=== PATIENT | female | born 1935 | race American Indian/Alaskan Native ===

== ENCOUNTER 2019-08-22 17:37 | Emergency (ER) | payer MEDICARE, MEDICAID ==
--- NOTE | 2019-08-22 19:11 | Emergency Department Report ---
Blank Doc - Documentation Documentation: 84-year-old female that presents with right calf/leg pain. This initial assessment/diagnostic orders/clinical plan/treatment(s) is/are subject to change based on patient's health status, clinical progression and re- assessment by fellow clinical providers in the ED. Further treatment and workup at subsequent clinical providers discretion. Patient/guardians urged not to elope from the ED as their condition may be serious if not clinically assessed and managed. Initial orders include: 1- Patient sent to MAIN ED for further evaluation and treatment 2- Doppler US
[2019-08-22] MEDS ORDERED: IBUPROFEN 600 MG TAB PO ONE ×2 (19:15→19:17)
[2019-08-22 22:23] LABS: Basophils % (Auto) 0.4 % (0.0-1.8); Hematocrit 37.3 % (30.3-42.9); Hemoglobin 12.9 gm/dl (10.1-14.3); Lymphocytes # (Auto) 0.5 K/mm3 (1.2-5.4); Lymphocytes % (Auto) 7.3 % (13.4-35.0); Mean Corpuscular HGB Conc 35 % (30-34); Mean Corpuscular Volume 88 fl (79-97); Monocytes # (Auto) 0.3 K/mm3 (0.0-0.8); Monocytes % (Auto) 3.7 % (0.0-7.3); Platelet Count 289 K/mm3 (140-440); Red Blood Count 4.26 M/mm3 (3.65-5.03); Red Cell Distribution Width 16.2 % (13.2-15.2)
[2019-08-22 22:34] LABS: INR 1.03 (0.87-1.13); Partial Thromboplastin Time 22.5 Sec. (24.2-36.6)
[2019-08-22 22:41] LABS: Albumin 4.4 g/dL (3.9-5)
--- NOTE | 2019-08-22 22:44 | XRay Report ---
CHEST 2 VIEWS INDICATION / CLINICAL INFORMATION: SOB, elevated HR, fever. Dyspnea. COMPARISON: None available. FINDINGS: SUPPORT DEVICES: None. HEART / MEDIASTINUM: No significant abnormality. LUNGS / PLEURA: No significant pulmonary or pleural abnormality. No pneumothorax. ADDITIONAL FINDINGS: No significant additional findings. IMPRESSION: 1. No acute findings. Signer Name: Alex Stone MD Signed: 08/22/2019 10:40 PM Workstation Name: [id number]
[2019-08-22] MEDS ORDERED: SODIUM CHLORIDE 0.9% 1000 ML 1,000 ML IV ONE (22:46)
--- NOTE | 2019-08-23 00:19 | Cat Scan Report ---
CT angiography of the chest with intravenous contrast and multiplanar MIP reconstructions INDICATION / CLINICAL INFORMATION: Shortness of breath, tachycardia, fever and elevated d-dimer. TECHNIQUE: Axial CT images were obtained after injection of 100 cc Omnipaque 350 IV contrast using CTA protocol. 3 plane MIP / 3D reconstructions were produced. All CT scans at this location are performed using CT dose reduction for ALARA by means of automated exposure control. COMPARISON: None available. FINDINGS: There is mild motion artifact. There is adequate opacification of the pulmonary arterial system bilat erally without intraluminal filling defect to suggest acute PTE. The thoracic aorta is normal in [place] without dissection. There is mild to moderate coronary artery calcification. There is a calcified granuloma in the right upper lobe posteriorly. Mild bibasilar subsegmental atele ctasis is present. There is no evidence of adenopathy or effusion. The visualized upper abdomen demonstrates small calcified granulomata in the spleen. There is a small hiatal hernia. A 2 cm cyst is present in the liver. There is mild spondylosis without acute osseous abnormality. IMPRESSION: 1. No evidence of acute PTE or pneumonia. 2. Mild to moderate coronary artery calcification. Signer Name: Daniel Caballero MD Signed: 08/23/2019 12:14 AM Workstation Name: [id number]
--- NOTE | 2019-08-23 01:38 | Emergency Department Report ---
ED General Adult HPI - General Chief complaint: Extremity Injury, Lower Stated complaint: (R) LEG PAIN Time Seen by Provider: 08/22/19 19:10 Source: patient, EMS Mode of arrival: Stretcher Limitations: Physical Limitation - History of Present Illness Initial comments: Patient is an 84-year-old female presents emergency room with complaints of right leg pain that began today. She states that she went to the workout center today and was doing exercises and began to feel the pain after she was finished. She denies any fall or injury. She states that she also had some shortness of breath earlier but that has since resolved. She denies any numbness, weakness, chest pain, palpitations, nausea, vomiting, diarrhea. She has a past medical history of asthma and diabetes. She denies any allergies medications. Severity scale (0 -10): 7 - Related Data Previous Rx's Medication Instructions Recorded Last Taken Type Acetaminophen [Tylenol] 650 mg PO Q8HR PRN #20 capsule 08/23/19 Unknown Rx Allergies Allergy/AdvReac Type Severity Reaction Status Date / Time No Known Allergies Allergy Unverified 08/22/19 18:24 ED Review of Systems ROS: Stated complaint: (R) LEG PAIN Other details as noted in HPI Comment: All other systems reviewed and negative ED Past Medical Hx - Past Medical History Previous Medical History?: No - Surgical History Past Surgical History?: No - Social History Smoking Status: Former Smoker Substance Use Type: None - Medications Home Medications: Home Medications Medication Instructions Recorded Confirmed Last Taken Type Acetaminophen [Tylenol] 650 mg PO Q8HR PRN #20 capsule 08/23/19 Unknown Rx ED Physical Exam - General Limitations: Physical Limitation General appearance: alert, in no apparent distress - Head Head exam: Present: atraumatic, normocephalic - Eye Eye exam: Present: normal appearance - ENT ENT exam: Present: mucous membranes moist - Respiratory Respiratory exam: Present: normal lung sounds bilaterally. Absent: respiratory distress, wheezes, rales, rhonchi, stridor, chest wall tenderness, accessory muscle use, decreased breath sounds, prolonged expiratory - Cardiovascular Cardiovascular Exam: Present: regular rate, normal rhythm, normal heart sounds. Absent: systolic murmur, diastolic murmur, rubs, gallop - Extremities Exam Extremities exam: Present: other (no leg swelling bilaterally, FROM of the bilateral LE, neurovascularly intact, no deformities, no skin changes). Absent: pedal edema - Neurological Exam Neurological exam: Present: alert, oriented X3 - Psychiatric Psychiatric exam: Present: normal affect, normal mood - Skin Skin exam: Present: warm, dry, intact ED Course Vital Signs 08/22/19 08/22/19 08/22/19 18:23 19:13 19:18 Temperature 100.0 F H 100 F H Pulse Rate 112 H 112 H Respiratory 19 18 18 Rate Blood Pressure 139/72 139/72 Blood Pressure [Left] O2 Sat by Pulse 95 96 Oximetry 08/23/19 02:42 Temperature 98.0 F Pulse Rate 79 Respiratory 14 Rate Blood Pressure Blood Pressure 161/84 [Left] O2 Sat by Pulse 97 Oximetry ED Medical Decision Making - Lab Data Result diagrams: 08/22/19 22:00 08/22/19 22:00 Lab Results 08/22/19 08/22/19 08/22/19 Range/Units 22:00 22:00 22:00 WBC 6.9 (4.5-11.0) K/mm3 RBC 4.26 (3.65-5.03) M/mm3 Hgb 12.9 (10.1-14.3) gm/dl Hct 37.3 (30.3-42.9) % MCV 88 (79-97) fl MCH 30 (28-32) pg MCHC 35 H (30-34) % RDW 16.2 H (13.2-15.2) % Plt Count 289 (140-440) K/mm3 Lymph % (Auto) 7.3 L (13.4-35.0) % Gregg % (Auto) 3.7 (0.0-7.3) % Eos % (Auto) 0.0 (0.0-4.3) % Baso % (Auto) 0.4 (0.0-1.8) % Lymph # 0.5 L (1.2-5.4) K/mm3 Gregg # 0.3 (0.0-0.8) K/mm3 Eos # 0.0 (0.0-0.4) K/mm3 Baso # 0.0 (0.0-0.1) K/mm3 Seg Neutrophils % 88.6 H (40.0-70.0) % Seg Neutrophils # 6.1 (1.8-7.7) K/mm3 PT 13.6 (12.2-14.9) Sec. INR 1.03 (0.87-1.13) APTT 22.5 L (24.2-36.6) Sec. D-Dimer 403.14 H (0-234) ng/mlDDU Sodium 138 (137-145) mmol/L Potassium 3.5 L (3.6-5.0) mmol/L Chloride 98.7 (98-107) mmol/L Carbon Dioxide 22 (22-30) mmol/L Anion Gap 21 mmol/L BUN 22 H (7-17) mg/dL Creatinine 1.2 (0.7-1.2) mg/dL Estimated GFR 52 ml/min BUN/Creatinine Ratio 18 % Glucose 163 H (65-100) mg/dL Calcium 10.0 (8.4-10.2) mg/dL Phosphorus 3.00 (2.5-4.5) mg/dL Magnesium 2.00 (1.7-2.3) mg/dL Total Bilirubin 0.40 (0.1-1.2) mg/dL AST 18 (5-40) units/L ALT 14 (7-56) units/L Alkaline Phosphatase 82 (35-129) units/L Total Creatine Kinase 135 (30-135) units/L Troponin T (0.00-0.029) ng/mL Total Protein 8.6 H (6.3-8.2) g/dL Albumin 4.4 (3.9-5) g/dL Albumin/Globulin Ratio 1.0 % TSH (0.270-4.200) mlU/mL Urine Color (Yellow) Urine Turbidity (Clear) Urine pH (5.0-7.0) Ur Specific Nelson (1.003-1.030) Urine Protein (Negative) mg/dL Urine Glucose (UA) (Negative) mg/dL Urine Ketones (Negative) mg/dL Urine Blood (Negative) Urine Nitrite (Negative) Urine Bilirubin (Negative) Urine Urobilinogen (<2.0) mg/dL Ur Leukocyte Esterase (Negative) Urine WBC (Auto) (0.0-6.0) /HPF Urine RBC (Auto) (0.0-6.0) /HPF U Epithel Cells (Auto) (0-13.0) /HPF 08/22/19 08/22/19 08/23/19 Range/Units 22:00 22:00 02:22 WBC (4.5-11.0) K/mm3 RBC (3.65-5.03) M/mm3 Hgb (10.1-14.3) gm/dl Hct (30.3-42.9) % MCV (79-97) fl MCH (28-32) pg MCHC (30-34) % RDW (13.2-15.2) % Plt Count (140-440) K/mm3 Lymph % (Auto) (13.4-35.0) % Gregg % (Auto) (0.0-7.3) % Eos % (Auto) (0.0-4.3) % Baso % (Auto) (0.0-1.8) % Lymph # (1.2-5.4) K/mm3 Gregg # (0.0-0.8) K/mm3 Eos # (0.0-0.4) K/mm3 Baso # (0.0-0.1) K/mm3 Seg Neutrophils % (40.0-70.0) % Seg Neutrophils # (1.8-7.7) K/mm3 PT (12.2-14.9) Sec. INR (0.87-1.13) APTT (24.2-36.6) Sec. D-Dimer (0-234) ng/mlDDU Sodium (137-145) mmol/L Potassium (3.6-5.0) mmol/L Chloride (98-107) mmol/L Carbon Dioxide (22-30) mmol/L Anion Gap mmol/L BUN (7-17) mg/dL Creatinine (0.7-1.2) mg/dL Estimated GFR ml/min BUN/Creatinine Ratio % Glucose (65-100) mg/dL Calcium (8.4-10.2) mg/dL Phosphorus (2.5-4.5) mg/dL Magnesium (1.7-2.3) mg/dL Total Bilirubin (0.1-1.2) mg/dL AST (5-40) units/L ALT (7-56) units/L Alkaline Phosphatase (35-129) units/L Total Creatine Kinase (30-135) units/L Troponin T < 0.010 (0.00-0.029) ng/mL Total Protein (6.3-8.2) g/dL Albumin (3.9-5) g/dL Albumin/Globulin Ratio % TSH 1.380 (0.270-4.200) mlU/mL Urine Color Colorless (Yellow) Urine Turbidity Clear (Clear) Urine pH 7.0 (5.0-7.0) Ur Specific Nelson 1.018 (1.003-1.030) Urine Protein <15 mg/dl (Negative) mg/dL Urine Glucose (UA) Neg (Negative) mg/dL Urine Ketones Neg (Negative) mg/dL Urine Blood Neg (Negative) Urine Nitrite Neg (Negative) Urine Bilirubin Neg (Negative) Urine Urobilinogen < 2.0 (<2.0) mg/dL Ur Leukocyte Esterase Neg (Negative) Urine WBC (Auto) 1.0 (0.0-6.0) /HPF Urine RBC (Auto) 1.0 (0.0-6.0) /HPF U Epithel Cells (Auto) < 1.0 (0-13.0) /HPF - Radiology Data Radiology results: report reviewed CT angiography of the chest with intravenous contrast and multiplanar MIP reconstructions INDICATION / CLINICAL INFORMATION: Shortness of breath, tachycardia, fever and elevated d-dimer. TECHNIQUE: Axial CT images were obtained after injection of 100 cc Omnipaque 350 IV contrast using CTA protocol. 3 plane MIP / 3D reconstructions were produced. All CT scans at this location are performed using CT dose reduction for ALARA by means of automated exposure control. COMPARISON: None available. FINDINGS: There is mild motion artifact. There is adequate opacification of the pulmonary arterial system bilaterally without intraluminal filling defect to suggest acute PTE. The thoracic aorta is normal in caliber without dissection. There is mild to moderate coronary artery calcification. There is a calcified granuloma in the right upper lobe posteriorly. Mild bibasilar subsegmental atelectasis is present. There is no evidence of adenopathy or effusion. The visualized upper abdomen demonstrates small calcified granulomata in the spleen. There is a small hiatal hernia. A 2 cm cyst is present in the liver. There is mild spondylosis without acute osseous abnormality. IMPRESSION: 1. No evidence of acute PTE or pneumonia. 2. Mild to moderate coronary artery calcification. Signer Name: Daniel Caballero MD Signed: 08/23/2019 12:14 AM Workstation Name: [id number] Transcribed By: RT Dictated By: Daniel Caballero MD Electronically Authenticated By: Daniel Caballero MD Signed Date/Time: 08/23/19 0014 DD/ 0009 TD/TT: CHEST 2 VIEWS INDICATION / CLINICAL INFORMATION: SOB, elevated HR, fever. Dyspnea. COMPARISON: None available. FINDINGS: SUPPORT DEVICES: None. HEART / MEDIASTINUM: No significant abnormality. LUNGS / PLEURA: No significant pulmonary or pleural abnormality. No pneumothorax. ADDITIONAL FINDINGS: No significant additional findings. IMPRESSION: 1. No acute findings. Signer Name: Alex Stone MD Signed: 08/22/2019 10:40 PM Workstation Name: [id number] Transcribed By: BC Dictated By: Alex Stone MD Electronically Authenticated By: Alex Stone MD Signed Date/Time: 08/22/192239 DD/ 38 TD/TT: - Medical Decision Making Patient is an 84-year-old female presents emergency room with complaints of right leg pain that began today. She states that she went to the workout center today and was doing exercises and began to feel the pain after she was finished. She denies any fall or injury. She states that she also had some shortness of breath earlier but that has since resolved. She denies any numbness, weakness, chest pain, palpitations, nausea, vomiting, diarrhea. She has a past medical history of asthma and diabetes. She denies any allergies medications. Vitals with elevated temperature and heart rate which improved to normal upon repeat. Labs significant for elevated d-dimer. UA without evidence of UTI. Chest x-ray 1. No acute findings. CTA chest: 1. No evidence of acute PTE or pneumonia.2. Mild to moderate coronary artery calcification. on exam: no leg swelling bilaterally, FROM of the bilateral LE, neurovascularly intact, no deformities, no skin changes. No signs of cellulitis, DVT, injury, effusion, septic joint, PVD. Discussed case with Dr. Paul Ugarte and patient results and he states that patient can be discharged home and that the low-grade temp and elevated heart rate could be related to a viral syndrome. Patient given prescription for Tylenol. Advised patient to increase her fluid intake. advised pt please take medication as prescribed as needed. Please follow-up with your primary care doctor in the next 2-3 days for reevaluation. Return to the emergency room immediately for any new or worsening symptoms. - Differential Diagnosis PE, electrolyte disturbance, UTI, PNA, asthma, COPD, CHF, aortic dissection Critical care attestation.: If time is entered above; I have spent that time in minutes in the direct care of this critically ill patient, excluding procedure time. ED Disposition Clinical Impression: Right leg pain, SOB (shortness of breath) Disposition: TO HOME OR SELFCARE Is pt being admited?: No Does the pt Need Aspirin: No Condition: Stable Additional Instructions: please take medication as prescribed as needed. Please follow-up with your primary care doctor in the next 2-3 days for reevaluation. Return to the emergency room immediately for any new or worsening symptoms. Prescriptions: Acetaminophen [Tylenol] 650 mg PO Q8HR PRN #20 capsule PRN Reason: pain Referrals: PRIMARY CARE, [Primary Care Provider] - 2-3 Days Time of Disposition: 03:44 Print Language: EAST TIMORESE
[2019-08-23 02:43] VITALS: BP 161/84
[2019-08-23 02:51] LABS: Bilirubin,Urine NEG (Negative); Blood,Urine NEG (Negative); Color,Urine Colorless (Yellow); Protein,Urine <15 mg/dL mg/dL (Negative); Urobilinogen,Urine < 2.0 mg/dL (<2.0)
== END 2019-08-23 07:05 | disposition home or self-care (01) ==
LOC: ED 17:37
DX: M79.604 Pain in right leg (principal); R06.02 Shortness of breath; Z87.891 Personal history of nicotine dependence
CPT/HCPCS: 36415; 71046; 71275; 80053; 81001; 82550; 83735; 84100; 84443; 84484; 85025; 85379; 85610; 85730; 93005; 93010; 99285; J7030; Q9967

== ENCOUNTER 2021-03-15 10:12 | Observation (INO) | payer MEDICARE ==
--- NOTE | 2021-03-15 10:44 | Emergency Department Report ---
HPI - General Chief Complaint: Extremity Injury, Lower Time Seen by Provider: 03/15/21 10:25 - HPI HPI: Room 22 The patient is an 85-year-old female present with a chief complaint of right knee pain after fall. The patient reports 2 days ago her feet were wet and she slipped and fell. When asked if she lost consciousness the patient replies "a little bit." Patient states she had a headache after fall but it has since resolved. Patient denies nausea vomiting. Patient also complains of pain in her right knee ED Past Medical Hx - Past Medical History Previous Medical History?: Yes Hx Hypertension: Yes Hx Diabetes: Yes - Surgical History Past Surgical History?: No - Family History Family history: no significant - Social History Smoking Status: Former Smoker (None times years) Substance Use Type: None - Medications Home Medications: Home Medications Medication Instructions Recorded Confirmed Last Taken Type Acetaminophen [Tylenol] 650 mg PO Q8HR PRN #20 capsule 08/23/19 Unknown Rx levETIRAcetam [Keppra TAB] 500 mg PO BID #60 tablet 03/24/20 Unknown Rx Ibuprofen [Motrin 800 MG tab] 800 mg PO Q8HR PRN #20 tablet 03/15/21 Unknown Rx traMADoL [Ultram] 50 mg PO Q6HR PRN #10 tablet 03/15/21 Unknown Rx ED Review of Systems ROS: Stated complaint: RT KNII PAIN Other details as noted in HPI Constitutional: no symptoms reported Eyes: denies: eye pain ENT: denies: throat pain Respiratory: no symptoms reported Cardiovascular: denies: chest pain Endocrine: no symptoms reported Gastrointestinal: denies: abdominal pain Genitourinary: denies: dysuria Musculoskeletal: arthralgia Neurological: headache Physical Exam - Physical Exam Vital Signs: Vital Signs 03/15/21 10:23 Temperature 97.7 F Pulse Rate 108 H Respiratory 19 Rate Blood Pressure 141/77 O2 Sat by Pulse 93 Oximetry Physical Exam: GENERAL: The patient is well-developed well-nourished female lying on stretcher not appearing to be in acute distress. [] HEENT: Normocephalic. Atraumatic. Extraocular motions are intact. Patient has moist mucous membranes. NECK: Supple. Trachea midline. No midline axial step-offs CHEST/LUNGS: Clear to auscultation. There is no respiratory distress noted. HEART/CARDIOVASCULAR: Regular. There is no tachycardia. There is no gallop rub or murmur. ABDOMEN: Abdomen is soft, nontender. Patient has normal bowel sounds. There is no abdominal distention. SKIN: There is no rash. There is no edema. There is no diaphoresis. NEURO: The patient is awake, alert, and oriented. The patient is cooperative. The patient has no focal neurologic deficits. The patient has normal speech. GCS 15 MUSCULOSKELETAL: There is no evidence of acute injury. ED Course Vital Signs 03/15/21 10:23 Temperature 97.7 F Pulse Rate 108 H Respiratory 19 Rate Blood Pressure 141/77 O2 Sat by Pulse 93 Oximetry ED Medical Decision Making - Radiology Data Radiology results: image reviewed (Pelvis x-ray, right knee x-ray, CT head, CT cervical spine) interpreted by me: Pelvis x-ray-no acute fractures, no dislocation. Right knee x-ray-no acute fracture, no dislocation [address] [address] XRay Report Signed Patient: DANY LOPEZ MR#: [id number] 6 : 1935 Acct:[id number] Age/Sex: 85 / F ADM Date: 03/15/21 Loc: ED Attending Dr: Ordering Physician: MAISHA GILLILAND MD Date of Service: 03/15/21 Procedure(s): XR pelvis 1-2V Accession Number(s): [id number] cc: MAISHA GILLILAND MD Fluoro Time In Minutes: Pelvis radiograph, single AP view HISTORY: Pain after fall COMPARISON: None FINDINGS: No acute fracture or malalignment. No hip dislocation. There is mild bilateral hip osteoarthritis. Degenerative changes are present the pubic symphysis. No SI joint or pubic symphyseal diastases. Soft tissues are unremarkable. IMPRESSION: No acute abnormality. Signer Name: Magy Ascencio MD Signed: 03/15/2021 11:59 AM Workstation Name: [id number] Transcribed By: TAWANA Dictated By: MAGY ASCENCIO MD Electronically Authenticated By: MAGY ASCENCIO MD Signed Date/Time: 03/15/21 1159 DD/ 1158 TD/TT: Print Cancel [address] [address] XRay Report Signed Patient: DANY LOPEZ MR#: [id number] 6 : 1935 Acct:[id number] Age/Sex: 85 / F ADM Date: 03/15/21 Loc: ED Attending Dr: Ordering Physician: MAISHA GILLILAND MD Date of Service: 03/15/21 Procedure(s): XR knee 3V RT Accession Number(s): [id number] cc: MAISHA GILLILAND MD Fluoro Time In Minutes: Right knee radiograph, 3 views HISTORY: Right knee pain after fall COMPARISON: None FINDINGS: Marked osteoarthritis of the right knee, preferentially involving the lateral compartment. There is genu valgus. No acute fracture or malalignment. No significant joint capsular distention. Soft tissues are unremarkable, aside from scattered vascular calcifications. IMPRESSION: Right knee osteoarthritis. No acute abnormality. Signer Name: Magy Ascencio MD Signed: 03/15/2021 11:56 AM Workstation Name: [id number] Transcribed By: JS Dictated By: MAGY ASCENCIO MD Electronically Authenticated By: MAGY ASCENCIO MD Signed Date/Time: 03/15/21 1156 DD/ 1155 TD/TT: Print Cancel [facility] [address] [place] [address] Cat Scan Report Signed Patient: DANY LOPEZ MR#: [id number] 6 : 1935 Acct:[id number] Age/Sex: 85 / F ADM Date: 03/15/21 Loc: ED Attending Dr: Ordering Physician: MAISHA GILLILAND MD Date of Service: 03/15/21 Procedure(s): CT head/brain wo con Accession Number(s): [id number] cc: MAISHA GILLILAND MD CT HEAD WITHOUT CONTRAST INDICATION : Pain after fall. TECHNIQUE: Axial imaging performed from the skull apex through the skull base without the use of contrast. Sagittal and coronal reformatted images. All CT scans at this location are performed using CT dose reduction for ALARA by means of automated exposure control. COMPARISON: 03/23/2020 FINDINGS: Parenchyma: Advanced central and cortical volume loss is again noted. Moderate to severe hypoattenuation is again seen throughout the white matter consistent with chronic microangiopathy. Stable 1.1 cm chronic infarct in the left cerebellum. No acute parenchymal abnormality, hemorrhage or extra-axial fluid collection is appreciated. Ventricles: The ventricles remain prominent but symmetric consistent with central volume loss. Bones: No acute osseous abnormality. Sinuses: Mild mucosal thickening and trace fluid has developed in both maxillary sinuses. The remaining sinuses and mastoid air cells are clear. Soft tissues: Soft tissues including the orbits appear normal. IMPRESSION: No acute intracranial process is appreciated. Advanced volume loss and chronic white matter changes. Chronic cerebellar infarct. No significant change since 03/23/2020. CT CERVICAL SPINE WITHOUT CONTRAST INDICATION: Pain after fall. TECHNIQUE: Axial imaging performed through the cervical spine without the use of contrast. Sagittal and coronal reconstructed images were also reviewed. All CT scans at this location are performed using CT dose reduction for ALARA by means of automated exposure control. COMPARISON: None FINDINGS: Alignment: There is reversal of the normal cervical lordosis. No evidence for subluxation. Bones: There is no acute osseous abnormality. There is fusion of the C5-6 disc space which is probably congenital. Severe discogenic DJD is present at the remaining levels. There is mild diffuse facet arthropathy. Soft tissues: No acute or significant incidental soft tissue abnormality. IMPRESSION: Reversal of the normal cervical lordosis. Advanced multilevel degenerative change. 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 No acute cervical injury is detected. Signer Name: Natanael Rene Jr, MD Signed: 03/15/2021 11:22 AM Workstation Name: [id number] Transcribed By: TTR Dictated By: NATANAEL RENE JR, MD Electronically Authenticated By: NATANAEL RENE JR, MD Signed Date/Time: 03/15/21 1122 DD/ 1118 TD/TT: Print Cancel - Differential Diagnosis Close head injury, ICH, knee contusion, femur fracture, Critical care attestation.: If time is entered above; I have spent that time in minutes in the direct care of this critically ill patient, excluding procedure time. ED Disposition Clinical Impression: Closed head injury, Contusion of right knee Disposition: DC-01 TO HOME OR SELFCARE Is pt being admited?: No Does the pt Need Aspirin: No Condition: Stable Instructions: Contusion Additional Instructions: Return to the emergency department should you develop worsening symptoms, inability to tolerate food or liquids, high fever or any other concerns Prescriptions: Ibuprofen [Motrin 800 MG tab] 800 mg PO Q8HR PRN #20 tablet PRN Reason: Pain, Moderate (4-6) traMADoL [Ultram] 50 mg PO Q6HR PRN #10 tablet PRN Reason: Pain Referrals: PRIMARY CAREMD [Primary Care Provider] - 3-5 Days CHAVEZ SHARMA MD [Staff Physician] - 3-5 Days (Dr. Sharma is an orthopedic surgeon. Please follow-up with him for further evaluation) Time of Disposition: 12:12
--- NOTE | 2021-03-15 11:27 | Cat Scan Report ---
CT HEAD WITHOUT CONTRAST INDICATION : Pain after fall. TECHNIQUE: Axial imaging performed from the skull apex through the skull base without the use of con trast. Sagittal and coronal reformatted images. All CT scans at this location are performed using C T dose reduction for ALARA by means of automated exposure control. COMPARISON: 03/23/2020 FINDINGS: Parenchyma: Advanced central and cortical volume loss is again noted. Moderate to severe hypoattenua tion is again seen throughout the white matter consistent with chronic microangiopathy. Stable 1.1 cm chronic infarct in the left cerebellum. No acute parenchymal abnormality, hemorrhage or extra-axial fluid collection is appreciated. Ventricles: The ventricles remain prominent but symmetric consistent with central volume loss. Bones: No acute osseous abnormality. Sinuses: Mild mucosal thickening and trace fluid has developed in both maxillary sinuses. The remain ing sinuses and mastoid air cells are clear. Soft tissues: Soft tissues including the orbits appear normal. IMPRESSION: No acute intracranial process is appreciated. Advanced volume loss and chronic white jim er changes. Chronic cerebellar infarct. No significant change since 03/23/2020. CT CERVICAL SPINE WITHOUT CONTRAST INDICATION: Pain after fall. TECHNIQUE: Axial imaging performed through the cervical spine without the use of contrast. Sagittal and coronal reconstructed images were also reviewed. All CT scans at this location are performed us ing CT dose reduction for ALARA by means of automated exposure control. COMPARISON: None FINDINGS: Alignment: There is reversal of the normal cervical lordosis. No evidence for subluxation. Bones: There is no acute osseous abnormality. There is fusion of the C5-6 disc space which is proba abhi congenital. Severe discogenic DJD is present at the remaining levels. There is mild diffuse facet arthropathy. Soft tissues: No acute or significant incidental soft tissue abnormality. IMPRESSION: Reversal of the normal cervical lordosis. Advanced multilevel degenerative change. 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 No acute cervical injury is detected. Signer Name: Natanael Rene Jr, MD Signed: 03/15/2021 11:22 AM Workstation Name: [id number]
--- NOTE | 2021-03-15 12:03 | XRay Report ---
Right knee radiograph, 3 views HISTORY: Right knee pain after fall COMPARISON: None FINDINGS: Marked osteoarthritis of the right knee, preferentially involving the lateral compartment. There is genu valgus. No acute fracture or malalignment. No significant joint capsular distention. So ft tissues are unremarkable, aside from scattered vascular calcifications. IMPRESSION: Right knee osteoarthritis. No acute abnormality. Signer Name: Peter Ascencio MD Signed: 03/15/2021 11:56 AM Workstation Name: [id number]
--- NOTE | 2021-03-15 12:04 | XRay Report ---
Pelvis radiograph, single AP view HISTORY: Pain after fall COMPARISON: None FINDINGS: No acute fracture or malalignment. No hip dislocation. There is mild bilateral hip osteoart hritis. Degenerative changes are present the pubic symphysis. No SI joint or pubic symphyseal diastas es. Soft tissues are unremarkable. IMPRESSION: No acute abnormality. Signer Name: Peter Ascencio MD Signed: 03/15/2021 11:59 AM Workstation Name: [id number]
[2021-03-16] MEDS ORDERED: NITROGLYCERIN 0.4 MG TAB SUBL SL ONE (15:24)
[2021-03-17] MEDS ORDERED: ACETAMINOPHEN 500 MG TAB PO PRN (12:18)
--- NOTE | 2021-03-17 12:27 | Event Note ---
Date: 03/17/21 S: Patient complaining of some knee pain. O: Vital signs stable. Patient is calm and cooperative. A: Hypertension, diabetes, osteoarthritis P: Personal long-term states they are unable to manage patient; requesting placement in long-term care facility. Awaiting placement at this time. Will dispo per case management recommendations. Nurse will attempt to obtain list of home meds.
[2021-03-17] MEDS: levETIRAcetam 500 MG TAB PO SCH (22:45)
[2021-03-18] MEDS ORDERED: NON-FORMULARY EACH (Sitagliptin Phos/Metformin Hcl [Janumet Xr 50-1,000 Mg] 1 EACH Tbmp.24 PO SCH (08:00)
[2021-03-18] MEDS ORDERED: NON-FORMULARY EACH (Omeprazole [Omeprazole] 20 MG Tablet.Dr) PO SCH (10:00)
[2021-03-18] MEDS ORDERED: NON-FORMULARY EACH (Lovastatin [Altoprev] 40 MG Tab.Er.24h) PO SCH (10:00)
--- NOTE | 2021-03-18 10:10 | Event Note ---
Date: 03/18/21 85-year-old female who originally came in for a fall with knee pain and a head injury. She was given the diagnosis of a knee contusion and closed head injury. She was no longer able to return to her personal correction and is currently boarding in the emergency department for case management assistance with placement. Case management is awaiting the results of her Covid test and OT/PT evaluation for possible SNF placement. Vital signs, listed below, have been reassuring over the past 24 hours. No events overnight. We will continue to m onitor her during her ED course. Vital Signs - 24 hr 03/17/21 03/18/21 03/18/21 13:15 01:22 05:30 Temperature 97.7 F 97.7 F Pulse Rate 94 H 88 Respiratory 18 18 Rate Blood Pressure 161/90 145/80 [Right] O2 Sat by Pulse 98 96 96 Oximetry
[2021-03-18] MEDS: amLODIPine 10 MG TAB PO SCH (13:29)
[2021-03-18] MEDS: PANTOPRAZOLE 20 MG TAB PO SCH (13:29)
[2021-03-18] MEDS: allopurinoL 300 MG TAB PO SCH (13:29)
[2021-03-18] MEDS: LINAGLIPTIN 5 MG TAB PO SCH (13:29)
[2021-03-18] MEDS: levETIRAcetam 500 MG TAB PO SCH ×2 (13:29→22:35)
[2021-03-18] MEDS: FERROUS SULFATE 325 MG TAB PO SCH (13:29)
[2021-03-18] MEDS: metFORMIN XR 500MG TAB PO SCH (13:29)
[2021-03-18] MEDS: SENNOSIDES 8.6 MG PO SCH (13:32)
[2021-03-19] MEDS: metFORMIN XR 500MG TAB PO SCH (07:59)
[2021-03-19] MEDS: LINAGLIPTIN 5 MG TAB PO SCH (08:00)
--- NOTE | 2021-03-19 10:28 | Event Note ---
Date: 03/19/21 85-year-old female who originally came in for a fall with knee pain and a head injury. She was given the diagnosis of a knee contusion and closed head injury. She was no longer able to return to her personal [facility] and is currently boarding in the emergency department for case management assistance with placement. Case management is awaiting the results of her Covid test which is NEGATIVE. Patient resting comfortably with no complaints at this time
[2021-03-19] MEDS: amLODIPine 10 MG TAB PO SCH (12:29)
[2021-03-19] MEDS: PANTOPRAZOLE 20 MG TAB PO SCH (12:30)
[2021-03-19] MEDS: SENNOSIDES 8.6 MG PO SCH (12:30)
[2021-03-19] MEDS: levETIRAcetam 500 MG TAB PO SCH ×2 (12:30→22:46)
[2021-03-19] MEDS: FERROUS SULFATE 325 MG TAB PO SCH (12:30)
[2021-03-19] MEDS: allopurinoL 300 MG TAB PO SCH (12:33)
[2021-03-19] MEDS ORDERED: SENNOSIDES 8.6 MG TAB PO PRN (13:47)
--- NOTE | 2021-03-20 02:35 | Emergency Department Report ---
- General Chief complaint: Extremity Injury, Lower Stated complaint: RT KNEE PAIN PUI?: No Time Seen by Provider: 03/20/21 02:25 Source: EMS Mode of arrival: Stretcher Limitations: Physical Limitation - History of Present Illness Initial comments: Patient is a 85-year-old female that is in the emergency room waiting on a case management consult. Patient last known well time was 1 hour ago. Patient is now nonverbal. Patient having difficulty speaking. MD Complaint: generalized weakness -: Sudden Severity scale (0 -10): 0 - Related Data Home Medications Medication Instructions Recorded Confirmed Last Taken Ferrous Sulfate [Iron 325 MG] 325 mg PO DAILY 03/17/21 03/17/21 Unknown Lovastatin [Altoprev] 03/17/21 Unknown Lovastatin [Altoprev] 40 mg PO DAILY 03/17/21 03/17/21 Unknown Meloxicam [Mobic] 7.5 mg DAILY 03/17/21 03/17/21 Unknown Omeprazole 20 mg PO DAILY 03/17/21 03/17/21 Unknown Sennosides [Senna] 40 mg PO DAILY 03/17/21 03/17/21 Unknown Sitagliptin Phos/Metformin HCl tab DAILY 03/17/21 Unknown [Janumet XR 50-1,000 mg] allopurinoL [Zyloprim] 300 mg PO QDAY 03/17/21 03/17/21 Unknown amLODIPine [Norvasc] 10 mg PO DAILY 03/17/21 03/17/21 Unknown levETIRAcetam [Keppra TAB] 500 mg PO BID 03/17/21 03/17/21 Unknown traMADoL [Ultram 50 MG tab] 225 mg Q6HR 03/17/21 03/17/21 Unknown Allergies Allergy/AdvReac Type Severity Reaction Status Date / Time No Known Allergies Allergy Verified 03/15/21 10:30 ED Review of Systems ROS: Stated complaint: RT KNEE PAIN Other details as noted in HPI Constitutional: no symptoms reported Eyes: denies: eye pain ENT: denies: throat pain Respiratory: no symptoms reported Cardiovascular: denies: chest pain Endocrine: no symptoms reported Gastrointestinal: denies: abdominal pain Genitourinary: denies: dysuria Musculoskeletal: arthralgia Neurological: headache ED Past Medical Hx - Past Medical History Previous Medical History?: Yes Hx Hypertension: Yes Hx Diabetes: Yes - Surgical History Past Surgical History?: No - Family History Family history: no significant - Social History Smoking Status: Former Smoker (None times years) Substance Use Type: None - Medications Home Medications: Home Medications Medication Instructions Recorded Confirmed Last Taken Type Ferrous Sulfate [Iron 325 MG] 325 mg PO DAILY 03/17/21 03/17/21 Unknown History Lovastatin [Altoprev] 03/17/21 Unknown History Lovastatin [Altoprev] 40 mg PO DAILY 03/17/21 03/17/21 Unknown History Meloxicam [Mobic] 7.5 mg DAILY 03/17/21 03/17/21 Unknown History Omeprazole 20 mg PO DAILY 03/17/21 03/17/21 Unknown History Sennosides [Senna] 40 mg PO DAILY 03/17/21 03/17/21 Unknown History Sitagliptin Phos/Metformin HCl tab DAILY 03/17/21 Unknown History [Janumet XR 50-1,000 mg] allopurinoL [Zyloprim] 300 mg PO QDAY 03/17/21 03/17/21 Unknown History amLODIPine [Norvasc] 10 mg PO DAILY 03/17/21 03/17/21 Unknown History levETIRAcetam [Keppra TAB] 500 mg PO BID 03/17/21 03/17/21 Unknown History traMADoL [Ultram 50 MG tab] 225 mg Q6HR 03/17/21 03/17/21 Unknown History ED Physical Exam - General Limitations: Physical Limitation General appearance: alert, in no apparent distress - Head Head exam: Present: atraumatic, normocephalic - Eye Eye exam: Present: normal appearance - ENT ENT exam: Present: mucous membranes moist - Neck Neck exam: Present: normal inspection - Respiratory Respiratory exam: Present: normal lung sounds bilaterally. Absent: respiratory distress - Cardiovascular Cardiovascular Exam: Present: regular rate, normal rhythm. Absent: systolic murmur, diastolic murmur, rubs, gallop - GI/Abdominal GI/Abdominal exam: Present: soft, normal bowel sounds - Extremities Exam Extremities exam: Present: normal inspection - Back Exam Back exam: Present: normal inspection - Neurological Exam Neurological exam: Present: alert, oriented X3 - Psychiatric Psychiatric exam: Present: normal affect, normal mood - Skin Skin exam: Present: warm, dry, intact, normal color. Absent: rash - Assessment Assessment Interval: Baseline - Level of Consciousness 1a. Level of Consciousness: alert/keenly responsive - LOC Questions 1b. LOC Questions: aphasic - LOC Command 1c. LOC Commands: performs tasks correctly - Best Gaze 2. Best Gaze: normal - Visual 3. Visual: no visual loss - Facial Palsy 4. Facial Palsy: minor paralysis - Motor Arm 5a. Motor Arm Left: drift 5b. Motor Arm Right: drift - Motor Leg 6a. Motor Leg Left: drift 6b. Motor Leg Right: drift - Limb Ataxia 7. Limb Ataxia: absent - Sensory 8. Sensory: normal - Best Language 9. Best Language: no aphasia - Dysarthria 10. Dysarthria: normal - Extinction and Inattention 11. Extinction/Inattention: no abnormality - Scoring Total Score: 7 Stroke Severity: Moderate Stroke ED Course Vital Signs 03/15/21 03/15/21 03/15/21 10:18 10:23 10:30 Temperature 97.7 F Pulse Rate 108 H 106 H Respiratory 19 18 Rate Blood Pressure 141/77 129/75 Blood Pressure [Right] O2 Sat by Pulse 92 93 92 Oximetry 03/15/21 03/15/21 03/15/21 10:46 11:10 11:16 Temperature Pulse Rate 103 H 94 H 99 H Respiratory 17 18 17 Rate Blood Pressure 123/75 123/75 123/75 Blood Pressure [Right] O2 Sat by Pulse 94 94 95 Oximetry 03/15/21 03/15/21 03/15/21 11:30 11:46 12:00 Temperature Pulse Rate 101 H 92 H 83 Respiratory 19 20 30 H Rate Blood Pressure 121/77 122/74 129/79 Blood Pressure [Right] O2 Sat by Pulse 94 93 91 Oximetry 03/15/21 03/15/21 03/15/21 12:14 12:16 12:30 Temperature Pulse Rate 82 90 87 Respiratory 25 H 34 H 28 H Rate Blood Pressure 123/75 110/65 111/75 Blood Pressure [Right] O2 Sat by Pulse 91 92 90 Oximetry 03/15/21 03/15/21 03/15/21 12:36 12:46 13:04 Temperature Pulse Rate 78 98 H Respiratory 30 H 16 Rate Blood Pressure 111/75 108/69 112/76 Blood Pressure [Right] O2 Sat by Pulse 91 91 87 Oximetry 03/16/21 03/16/21 03/17/21 11:40 14:44 13:15 Temperature 98.9 F 97.7 F Pulse Rate 94 H 94 H Respiratory 14 14 18 Rate Blood Pressure Blood Pressure 145/76 161/90 [Right] O2 Sat by Pulse 96 96 98 Oximetry 03/18/21 03/18/21 03/18/21 01:22 05:30 13:33 Temperature 97.7 F 99.0 F Pulse Rate 88 78 Respiratory 18 18 Rate Blood Pressure Blood Pressure 145/80 106/58 [Right] O2 Sat by Pulse 96 96 96 Oximetry 03/18/21 03/19/21 03/19/21 13:34 12:13 12:29 Temperature 98.2 F Pulse Rate 83 89 Respiratory 20 Rate Blood Pressure 147/83 143/87 Blood Pressure [Right] O2 Sat by Pulse 96 95 Oximetry 03/19/21 03/20/21 03/20/21 22:00 02:40 03:06 Temperature 98.3 F Pulse Rate 93 H 93 H Respiratory 18 18 18 Rate Blood Pressure Blood Pressure 155/85 156/91 [Right] O2 Sat by Pulse 96 96 95 Oximetry - Reevaluation(s) Reevaluation #1: After initial evaluation, a code stroke was initiated. 03/20/21 02:36 Reevaluation #2: Patient speech has improved. I discussed all results with patient. I discussed plan of care with patient. Patient agrees with plan of care and admission. Patient to be admitted to the hospitalist service. 03/20/21 04:04 - Consultations Consultation #1: Hospitalist consulted for admission. Hospitalist to admit patient. 03/20/21 04:04 ED Medical Decision Making - Lab Data Result diagrams: 03/20/21 03:02 03/20/21 03:02 - Radiology Data Radiology results: report reviewed CT HEAD WITHOUT CONTRAST INDICATION / CLINICAL INFORMATION: Stroke symptoms. TECHNIQUE: All CT scans at this location are performed using CT dose reduction for ALARA by means of automated exposure control. COMPARISON: Head CT 03/15/2021 FINDINGS: HEMORRHAGE: None. EXTRA-AXIAL SPACES: Normal in size and morphology for the patient's age. VENTRICULAR SYSTEM: Prominent secondary to central volume loss, unchanged. CEREBRAL PARENCHYMA: Extensive bilateral periventricular and deep white matter hypoattenuation characteristic for microangiopathy, unchanged. Moderate cerebral atrophy, unchanged. MIDLINE SHIFT OR HERNIATION: None. CEREBELLUM / BRAINSTEM: No significant abnormality. ORBITS: Normal as visualized. SOFT TISSUES of HEAD: No significant abnormality. CALVARIUM: No significant abnormality. PARANASAL SINUSES / MASTOID AIR CELLS: Mild mucosal thickening left maxillary sinus and bilateral ethmoid air cells. There are complete opacification right maxillary sinus has worsened. ADDITIONAL FINDINGS: None. IMPRESSION: 1. No intracranial bleed or large territorial infarction. 2. Extensive microangiopathy and moderate cerebral atrophy, unchanged 3. Worsening mucosal sinus disease - Medical Decision Making Patient is an 85-year-old female that was an ER hold for a case management, the patient developed weakness and slurred speech and facial droop. A code stroke was initiated. Patient was taken directly to CT after initial evaluation. CT was negative for acute findings. Patient was evaluated by neurologist who recommends admission for TIA and weakness work-up. Patient admitted to the hospital service for further evaluation and treatment. Critical care time documented due to the multiple reassessments, prolonged time at the bedside, interpretation of diagnostics and labs. - Differential Diagnosis Weakness, CVA, TIA, slurred speech, facial droop. Critical Care Time: Yes Critical care time in (mins) excluding proc time.: 35 Critical care attestation.: If time is entered above; I have spent that time in minutes in the direct care of this critically ill patient, excluding procedure time. Critical Care Time: 35 minutes ED Disposition Clinical Impression: Facial droop, Slurred speech, Weakness Disposition: ADMITTED INPATIENT Is pt being admited?: Yes Does the pt Need Aspirin: No Condition: Critical Referrals: PRIMARY CARE, [Primary Care Provider] - 3-5 Days Time of Disposition: 04:05
--- NOTE | 2021-03-20 02:59 | Consultation ---
Medications and Allergies Allergies Allergy/AdvReac Type Severity Reaction Status Date / Time No Known Allergies Allergy Verified 03/15/21 10:30 Home Medications Medication Instructions Recorded Confirmed Last Taken Type Ferrous Sulfate [Iron 325 MG] 325 mg PO DAILY 03/17/21 03/17/21 Unknown History Lovastatin [Altoprev] 03/17/21 Unknown History Lovastatin [Altoprev] 40 mg PO DAILY 03/17/21 03/17/21 Unknown History Meloxicam [Mobic] 7.5 mg DAILY 03/17/21 03/17/21 Unknown History Omeprazole 20 mg PO DAILY 03/17/21 03/17/21 Unknown History Sennosides [Senna] 40 mg PO DAILY 03/17/21 03/17/21 Unknown History Sitagliptin Phos/Metformin HCl tab DAILY 03/17/21 Unknown History [Janumet XR 50-1,000 mg] allopurinoL [Zyloprim] 300 mg PO QDAY 03/17/21 03/17/21 Unknown History amLODIPine [Norvasc] 10 mg PO DAILY 03/17/21 03/17/21 Unknown History levETIRAcetam [Keppra TAB] 500 mg PO BID 03/17/21 03/17/21 Unknown History traMADoL [Ultram 50 MG tab] 225 mg Q6HR 03/17/21 03/17/21 Unknown History Active Meds: Active Medications Acetaminophen (Acetaminophen 500 Mg Tab) 500 mg PO Q6H PRN PRN Reason: Pain, Mild (1-3) Last Admin: 03/17/21 13:15 Dose: 500 mg Documented by: Allopurinol (Allopurinol 300 Mg Tab) 300 mg PO QDAY [facility] Last Admin: 03/19/21 12:33 Dose: 300 mg Documented by: Amlodipine Besylate (Amlodipine 10 Mg Tab) 10 mg PO DAILY [facility] Last Admin: 03/19/21 12:29 Dose: 10 mg Documented by: Atorvastatin Calcium (Atorvastatin 10 Mg Tab) 10 mg PO QHS [facility] Last Admin: 03/19/21 22:46 Dose: 10 mg Documented by: Ferrous Sulfate (Ferrous Sulfate 325 Mg Tab) 325 mg PO DAILY [facility] Last Admin: 03/19/21 12:30 Dose: 325 mg Documented by: Levetiracetam (Levetiracetam 500 Mg Tab) 500 mg PO BID [facility] Last Admin: 03/19/21 22:46 Dose: 500 mg Documented by: Linagliptin (Linagliptin 5 Mg Tab) 5 mg PO QAMDIAB [facility] Last Admin: 03/19/21 08:00 Dose: 5 mg Documented by: Metformin HCl (Metformin Xr 500mg Tab) 1,000 mg PO QDDIAB [facility] Last Admin: 03/19/21 07:59 Dose: 1,000 mg Documented by: Pantoprazole Sodium (Pantoprazole 20 Mg Tab) 20 mg PO QAM [facility] Last Admin: 03/19/21 12:30 Dose: 20 mg Documented by: Senna (Sennosides 8.6 Mg Tab) 8.6 mg PO QHS PRN PRN Reason: Laxative Effect Physical Examination - Vital Signs Vital Signs: Vital Signs Pulse Ox 92 03/15/21 10:18 Results - Laboratory Findings Abnormal Lab Findings: Abnormal Labs 03/15/21 03/15/21 03/16/21 12:19 17:36 15:10 POC Glucose 122 H 117 H 114 H 03/18/21 12:28 POC Glucose 129 H Assessment and Plan [facility] Consult Note # Demographics Consult Type: Acute Stroke Level 1 (0-4.5 hrs) Patient Location: Emergency Room First Name: Magda Last Name: Chantell Date of : 1935 Age: 85 Gender: Female Time of Initial Page ( Time): 03/20/2021, 02:49 Time of Return Call ( Time): 03/20/2021, 02:50 # HPI History: 85F with facial droop, not waking up and not speaking by report. Last well time is uncertain, perhaps 21:30 local time. In the hospital after a fall reportedly. # Scores Time of exam and NIHSS ( Time): 03/20/2021, 02:55 Level of Consciousness 1a: [0] = Alert; keenly responsive LOC Questions 1b: [2] = Answers neither correctly LOC Commands 1c: [0] = Performs both tasks correctly Best Gaze 2: [0] = Normal Visual 3: [0] = No visual loss Facial Palsy 4: [0] = Normal symmetrical movements Motor Arm Left 5a: [1] = Drift Motor Arm Right 5b: [0] = No drift Motor Leg Left 6a: [3] = No effort against gravity Motor Leg Right 6b: [3] = No effort against gravity Limb Ataxia 7: [0] = Absent Sensory 8: [0] = Normal Best Language 9: [0] = No aphasia Dysarthria 10: [1] = [id number] dysarthria Extinction and Inattention 11: [0] = No abnormality NIHSS Total: 10 # Exam Additional Neurologic Exam: Left arm effort limited by pain per patient. Same with left and right leg # [id number] Social History: non-ambulatory at baseline # Data Time Head CT personally read by me (Eastern Time): 03/20/2021, 02:[address]: no bleed preliminarily reviewed by me, please refer to radiology read for official reading severe generalized atrophy # Assessment Impression: Altered Mental Status transient, with reported facial droop, now resolved. R/o TIA. # Plan Thrombolytic/Intervention: NOT IV Thrombolysis or IA Intervention candidate Thrombolytic Exclusion (< 3 hour window): time of onset unclear Thrombolytic Exclusion: > 4.5 hours Intraarterial Exclusion: clinically not consistent with stroke VAN negative. Imaging: (urgency: routine): US carotid Other: telemetry monitoring Additional Recommendations: Consider MRI brain, echocardiogram depending on clinical suspicion for TIA/stroke, it is unclear to me whether this was neurologic or general medical/delerium related. Disposition: continue admission # Logistics Telemedicine: Interactive 2 way audio and visual telecommunication technology was utilized during this visit
--- NOTE | 2021-03-20 03:10 | Cat Scan Report ---
CT HEAD WITHOUT CONTRAST INDICATION / CLINICAL INFORMATION: Stroke symptoms. TECHNIQUE: All CT scans at this location are performed using CT dose reduction for ALARA by means of automated e xposure control. COMPARISON: Head CT 03/15/2021 FINDINGS: HEMORRHAGE: None. EXTRA-AXIAL SPACES: Normal in size and morphology for the patient's age. VENTRICULAR SYSTEM: Prominent secondary to central volume loss, unchanged. CEREBRAL PARENCHYMA: Extensive bilateral periventricular and deep white matter hypoattenuation charac teristic for microangiopathy, unchanged. Moderate cerebral atrophy, unchanged. MIDLINE SHIFT OR HERNIATION: None. CEREBELLUM / BRAINSTEM: No significant abnormality. ORBITS: Normal as visualized. SOFT TISSUES of HEAD: No significant abnormality. CALVARIUM: No significant abnormality. PARANASAL SINUSES / MASTOID AIR CELLS: Mild mucosal thickening left maxillary sinus and bilateral eth moid air cells. There are complete opacification right maxillary sinus has worsened. ADDITIONAL FINDINGS: None. IMPRESSION: 1. No intracranial bleed or large territorial infarction. 2. Extensive microangiopathy and moderate cerebral atrophy, unchanged 3. Worsening mucosal sinus disease CODE STROKE: Negative Time of Communication (BUSINESS MANAGEMENT ASSOCIATE/CDT): 2:04 AM Central time 03/20/2021 Licensed Practitioner Receiving Report: Fam [facility] Iii Signer Name: Yonathan Baeza MD Signed: 03/20/2021 3:05 AM Workstation Name: [id number]
[2021-03-20 03:14] LABS: Basophils % (Auto) 0.6 % (0.0-1.8); Eosinophils # (Auto) 0.1 K/mm3 (0.0-0.4); Eosinophils % (Auto) 1.7 % (0.0-4.3); Hemoglobin 13.9 gm/dl (10.1-14.3); Lymphocytes # (Auto) 1.5 K/mm3 (1.2-5.4); Lymphocytes % (Auto) 20.2 % (13.4-35.0); Mean Corpuscular HGB Conc 33 % (30-34); Mean Corpuscular Volume 88 fl (79-97); Monocytes # (Auto) 0.5 K/mm3 (0.0-0.8); Platelet Count 354 K/mm3 (140-440); Red Blood Count 4.76 M/mm3 (3.65-5.03); Red Cell Distribution Width 16.4 % (13.2-15.2)
[2021-03-20 03:26] LABS: INR 1.06 (0.87-1.13)
[2021-03-20 03:27] LABS: Partial Thromboplastin Time 26.9 Sec. (24.2-36.6); Thrombin Time 17.3 Sec. (15.1-19.6)
[2021-03-20 03:38] LABS: Creatine Kinase MB 2.9 ng/mL (0.0-4.0)
[2021-03-20 03:39] LABS: Alanine Aminotransferase 29 units/L (7-56); Albumin 4.5 g/dL (3.9-5); BUN/Creatinine Ratio 15; Blood Urea Nitrogen 12 mg/dL (7-17); Calcium 10.8 mg/dL (8.4-10.2); Hemolysis Index 1
[2021-03-20] MEDS ORDERED: ALBUTEROL 2.5 MG/3 ML NEBU IH PRN (05:24)
[2021-03-20] MEDS ORDERED: ONDANSETRON 4 MG/2 ML INJ IV PRN (05:24)
[2021-03-20] MEDS ORDERED: ACETAMINOPHEN 325 MG TAB PO PRN (05:24)
[2021-03-20] MEDS ORDERED: oxyCODONE /ACETAMINOPHEN 5-325MG TAB PO PRN (05:24)
[2021-03-20] MEDS ORDERED: HYDROmorphone 1 MG/1 ML INJ IV PRN (05:24)
[2021-03-20] MEDS ORDERED: SODIUM CHLORIDE 0.9% 1000 ML 1,000 ML IV SCH (05:30)
--- NOTE | 2021-03-20 05:40 | History and Physical Report ---
History of Present Illness Date of examination: 03/20/21 Date of admission: 03/18/21 04:07 Chief complaint: Right knee pain, slurred speech History of present illness: 85-year-old female who originally came in for a fall with knee pain and a head injury. She was given the diagnosis of a knee contusion and closed head injury. She was no longer able to return to her personal senior care and is currently boarding in the emergency department for case management assistance with placement. Case management is awaiting the results of her Covid test which is NEGATIVE. In the emergency room patient is found to have being difficulty speaking and generalized weakness. Patient was last known well time was 1 hour ago patient is now nonverbal. Subsequently patient was seen and evaluated by telemetry neurology. CT scan of the head shows no intracranial bleed or large territorial infarction. Extensive microangiopathy and moderate cerebral atrophy . Worsening mucosal sinus disease So we are going to admit the patient for stroke work-up Med rec is done. Past History Past Medical History: diabetes, hypertension Medications and Allergies Allergies Allergy/AdvReac Type Severity Reaction Status Date / Time No Known Allergies Allergy Verified 03/15/21 10:30 Home Medications Medication Instructions Recorded Confirmed Last Taken Type Ferrous Sulfate [Iron 325 MG] 325 mg PO DAILY 03/17/21 03/17/21 Unknown History Lovastatin [Altoprev] 03/17/21 Unknown History Lovastatin [Altoprev] 40 mg PO DAILY 03/17/21 03/17/21 Unknown History Meloxicam [Mobic] 7.5 mg DAILY 03/17/21 03/17/21 Unknown History Omeprazole 20 mg PO DAILY 03/17/21 03/17/21 Unknown History Sennosides [Senna] 40 mg PO DAILY 03/17/21 03/17/21 Unknown History Sitagliptin Phos/Metformin HCl tab DAILY 03/17/21 Unknown History [Janumet XR 50-1,000 mg] allopurinoL [Zyloprim] 300 mg PO QDAY 03/17/21 03/17/21 Unknown History amLODIPine [Norvasc] 10 mg PO DAILY 03/17/21 03/17/21 Unknown History levETIRAcetam [Keppra TAB] 500 mg PO BID 03/17/21 03/17/21 Unknown History traMADoL [Ultram 50 MG tab] 225 mg Q6HR 03/17/21 03/17/21 Unknown History Active Meds: Active Medications Acetaminophen (Acetaminophen 500 Mg Tab) 500 mg PO Q6H PRN PRN Reason: Pain, Mild (1-3) Last Admin: 03/17/21 13:15 Dose: 500 mg Documented by: Acetaminophen (Acetaminophen 325 Mg Tab) 650 mg PO Q4H PRN PRN Reason: Pain MILD(1-3)/Fever >100.5/FERRARI Albuterol (Albuterol 2.5 Mg/3 Ml Nebu) 2.5 mg IH Q4HRT PRN PRN Reason: Shortness Of Breath Albuterol/Ipratropium (Ipratropium/Albuterol Sulfate 3 Ml Ampul.Neb) 1 ampul IH Q6HRT [facility] Allopurinol (Allopurinol 300 Mg Tab) 300 mg PO QDAY [facility] Last Admin: 03/19/21 12:33 Dose: 300 mg Documented by: Amlodipine Besylate (Amlodipine 10 Mg Tab) 10 mg PO DAILY [facility] Last Admin: 03/19/21 12:29 Dose: 10 mg Documented by: Aspirin (Aspirin 325 Mg Tab) 325 mg PO QDAY [facility] Atorvastatin Calcium (Atorvastatin 10 Mg Tab) 10 mg PO QHS [facility] Last Admin: 03/19/21 22:46 Dose: 10 mg Documented by: Atorvastatin Calcium (Atorvastatin 40 Mg Tab) 40 mg PO QHS [facility] Famotidine (Famotidine 20 Mg Tab) 20 mg PO BID [facility] Ferrous Sulfate (Ferrous Sulfate 325 Mg Tab) 325 mg PO DAILY [facility] Last Admin: 03/19/21 12:30 Dose: 325 mg Documented by: Heparin Sodium (Porcine) (Heparin 5,000 Unit/1 Ml Vial) 5,000 unit SUB-Q Q12HR [facility] Hydromorphone HCl (Hydromorphone 1 Mg/1 Ml Inj) 0.5 mg IV Q3H PRN PRN Reason: Pain , Severe (7-10) Sodium Chloride (Nacl 0.9% 1000 Ml) 1,000 mls @ 100 mls/hr IV DIRECT [facility] Levetiracetam (Levetiracetam 500 Mg Tab) 500 mg PO BID [facility] Last Admin: 03/19/21 22:46 Dose: 500 mg Documented by: Linagliptin (Linagliptin 5 Mg Tab) 5 mg PO QAMDIAB [facility] Last Admin: 03/19/21 08:00 Dose: 5 mg Documented by: Meloxicam (Meloxicam 7.5 Mg Tab) 7.5 mg PO DAILY [facility] Metformin HCl (Metformin Xr 500mg Tab) 1,000 mg PO QDDIAB [facility] Last Admin: 03/19/21 07:59 Dose: 1,000 mg Documented by: Ondansetron HCl (Ondansetron 4 Mg/2 Ml Inj) 4 mg IV Q8H PRN PRN Reason: Nausea And Vomiting Oxycodone/Acetaminophen (Oxycodone /Acetaminophen 5-325mg Tab) 1 tab PO Q6H PRN PRN Reason: Pain, Moderate (4-6) Pantoprazole Sodium (Pantoprazole 20 Mg Tab) 20 mg PO QAM [facility] Last Admin: 03/19/21 12:30 Dose: 20 mg Documented by: Senna (Sennosides 8.6 Mg Tab) 8.6 mg PO QHS PRN PRN Reason: Laxative Effect Sodium Chloride (Sodium Chloride 0.9% 10 Ml Flush Syringe) 10 ml IV BID CONNIE Sodium Chloride (Sodium Chloride 0.9% 10 Ml Flush Syringe) 10 ml IV PRN PRN PRN Reason: LINE FLUSH Sodium Chloride (Sodium Chloride 0.9% 10 Ml Flush Syringe) 10 ml INJ PRN PRN PRN Reason: LINE FLUSH Tramadol HCl (Tramadol 50 Mg Tab) 225 mg PO Q6HR [facility] Review of Systems All systems: negative Constitutional: weakness Musculoskeletal: other (Right knee pain) Neurological: headaches, change in speech Exam - Constitutional Vitals: Temp Pulse Resp BP Pulse Ox 98.3 F 93 H 18 156/91 95 03/20/21 02:40 03/20/21 03:06 03/20/21 03:06 03/20/21 03:06 03/20/21 03:06 General appearance: Present: no acute distress, well-nourished - EENT Eyes: Present: PERRL ENT: hearing intact, clear oral mucosa - Neck Neck: Present: supple, normal ROM - Respiratory Respiratory effort: normal Respiratory: bilateral: CTA - Cardiovascular Heart Sounds: Present: S1 & S2. Absent: rub, click - Extremities Extremities: pulses symmetrical, No edema Peripheral Pulses: within normal limits - Abdominal General gastrointestinal: Present: soft, non-tender, non-distended, normal bowel sounds Female genitourinary: Present: normal - Integumentary Integumentary: Present: clear, warm, dry - Musculoskeletal Musculoskeletal: generalized weakness - Psychiatric Psychiatric: appropriate mood/affect, intact judgment & insight - Neurologic Neurologic: CNII-XII intact, moves all extremities, other (Facial droop slurred speech resolved) HEART Score - HEART Score Troponin: Troponin T < 0.010 ng/mL (0.00-0.029) 03/20/21 03:02 Results - Labs CBC & Chem 7: 03/20/21 03:02 03/20/21 03:02 Labs: Laboratory Last Values WBC 7.3 K/mm3 (4.5-11.0) 03/20/21 03:02 RBC 4.76 M/mm3 (3.65-5.03) 03/20/21 03:02 Hgb 13.9 gm/dl (10.1-14.3) 03/20/21 03:02 Hct 42.0 % (30.3-42.9) 03/20/21 03:02 MCV 88 fl (79-97) 03/20/21 03:02 MCH 29 pg (28-32) 03/20/21 03:02 MCHC 33 % (30-34) 03/20/21 03:02 RDW 16.4 % (13.2-15.2) H 03/20/21 03:02 Plt Count 354 K/mm3 (140-440) 03/20/21 03:02 Lymph % (Auto) 20.2 % (13.4-35.0) 03/20/21 03:02 [place] % (Auto) 7.0 % (0.0-7.3) 03/20/21 03:02 Eos % (Auto) 1.7 % (0.0-4.3) 03/20/21 03:02 Baso % (Auto) 0.6 % (0.0-1.8) 03/20/21 03:02 Lymph # (Auto) 1.5 K/mm3 (1.2-5.4) 03/20/21 03:02 [place] # (Auto) 0.5 K/mm3 (0.0-0.8) 03/20/21 03:02 Eos # (Auto) 0.1 K/mm3 (0.0-0.4) 03/20/21 03:02 Baso # (Auto) 0.0 K/mm3 (0.0-0.1) 03/20/21 03:02 Seg Neutrophils % 70.5 % (40.0-70.0) H 03/20/21 03:02 Seg Neutrophils # 5.1 K/mm3 (1.8-7.7) 03/20/21 03:02 PT 14.4 Sec. (12.2-14.9) 03/20/21 03:02 INR 1.06 (0.87-1.13) 03/20/21 03:02 APTT 26.9 Sec. (24.2-36.6) 03/20/21 03:02 Thrombin Time 17.3 Sec. (15.1-19.6) 03/20/21 03:02 Sodium 140 mmol/L (137-145) 03/20/21 03:02 Potassium 3.3 mmol/L (3.6-5.0) L 03/20/21 03:02 Chloride 98.2 mmol/L (98-107) 03/20/21 03:02 Carbon Dioxide 28 mmol/L (22-30) 03/20/21 03:02 Anion Gap 17 mmol/L 03/20/21 03:02 BUN 12 mg/dL (7-17) 03/20/21 03:02 Creatinine 0.8 mg/dL (0.6-1.2) 03/20/21 03:02 Estimated GFR > 60 ml/min 03/20/21 03:02 BUN/Creatinine Ratio 15 % 03/20/21 03:02 Glucose 104 mg/dL (65-100) H 03/20/21 03:02 POC Glucose 100 mg/dL (70-105) 03/20/21 02:28 Calcium 10.8 mg/dL (8.4-10.2) H 03/20/21 03:02 Total Bilirubin 0.50 mg/dL (0.1-1.2) 03/20/21 03:02 AST 39 units/L (5-40) 03/20/21 03:02 ALT 29 units/L (7-56) 03/20/21 03:02 Alkaline Phosphatase 91 units/L (35-129) 03/20/21 03:02 Total Creatine Kinase 432 units/L (30-135) H 03/20/21 03:02 CK-MB (CK-2) 2.9 ng/mL (0.0-4.0) 03/20/21 03:02 CK-MB (CK-2) Rel Index 0.6 (0-4) 03/20/21 03:02 Troponin T < 0.010 ng/mL (0.00-0.029) 03/20/21 03:02 Total Protein 8.5 g/dL (6.3-8.2) H 03/20/21 03:02 Albumin 4.5 g/dL (3.9-5) 03/20/21 03:02 Albumin/Globulin Ratio 1.1 % 03/20/21 03:02 Coronavirus (PCR) Negative (Negative) 03/17/21 08:30 - Imaging and Cardiology CT Scan - head: report reviewed Assessment and Plan VTE prophylaxis?: Chemical Plan of care discussed with patient/family: Yes - Patient Problems (1) TIA (transient ischemic attack) Current Visit: Yes Status: Acute Plan to address problem: Admit the patient to the medical telemetry. Aspirin 325 mg p.o. daily. Lipitor 40 mg p.o. daily. MRI of the brain with and without contrast. MRI of the brain and neck with and without contrast. PT OT any speech evaluation. Consult neurology in the morning if needed (2) Right knee pain Current Visit: Yes Status: Acute Plan to address problem: X-ray of the right knee showed right knee osteoarthritis. Tylenol 650 mg p.o. every 6 as needed Dilaudid 0.5 mg IV every 3 hours as needed (3) Weakness Current Visit: Yes Status: Acute Plan to address problem: Multivitamin 1 tablet p.o. daily. Will consult PT OT any speech evaluation (4) Hypertension Current Visit: Yes Status: Acute Plan to address problem: Hydralazine 10 mg IV every 6 hours as needed. We will monitor the blood pressure closely. We will continue the home medication (5) Diabetes mellitus Current Visit: No Status: Acute Plan to address problem: Accu-Chek before meals and at bedtime with Humalog moderate dose coverage we have. We also consult diabetic education recheck BMP in the morning (6) DVT prophylaxis Current Visit: No Status: Acute Plan to address problem: Heparin 5000 units subcu every 12 hours for DVT prophylaxis. Pepcid 20 mg p.o. twice daily for GI prophylaxis. Patient is a full code
[2021-03-20] MEDS ORDERED: IPRATROPIUM/ALBUTEROL SULFATE 3 ML AMPUL.NEB IH SCH (08:00)
[2021-03-20] MEDS ORDERED: POTASSIUM CHLORIDE 20 MEQ PACKET FEEDTUBE NR (12:33)
--- NOTE | 2021-03-20 12:33 | Event Note ---
Date: 03/20/21 Patient was seen and evaluated this morning. Patient was alert and communicative. No focal neurologic deficit. Patient admitted earlier this mo rning and continue management as outlined in HPI.
[2021-03-20] MEDS: levETIRAcetam 500 MG TAB PO SCH ×2 (13:27→22:19)
[2021-03-20] MEDS: PANTOPRAZOLE 20 MG TAB PO SCH (13:27)
[2021-03-20] MEDS: FERROUS SULFATE 325 MG TAB PO SCH (13:27)
[2021-03-20] MEDS: ASPIRIN 325 MG TAB PO SCH (13:27)
[2021-03-20] MEDS: FAMOTIDINE 20 MG TAB PO SCH ×2 (13:27→22:19)
[2021-03-20] MEDS: HEPARIN 5,000 UNIT/1 ML VIAL SUB-Q SCH ×2 (13:35→22:19)
[2021-03-20] MEDS: amLODIPine 10 MG TAB PO SCH (13:41)
[2021-03-20] MEDS: metFORMIN XR 500MG TAB PO SCH (14:09)
[2021-03-20] MEDS: allopurinoL 300 MG TAB PO SCH (14:09)
[2021-03-20] MEDS: LINAGLIPTIN 5 MG TAB PO SCH (14:09)
[2021-03-20] MEDS: MELOXICAM 7.5 MG TAB PO SCH (14:09)
[2021-03-20 17:11] LABS: Bilirubin,Urine NEG (Negative); Blood,Urine NEG (Negative); Color,Urine Yellow (Yellow); Mucus,Urine FEW /HPF
[2021-03-21 06:34] LABS: Basophils % (Auto) 0.4 % (0.0-1.8); Eosinophils # (Auto) 0.1 K/mm3 (0.0-0.4); Eosinophils % (Auto) 1.8 % (0.0-4.3); Hemoglobin 12.8 gm/dl (10.1-14.3); Lymphocytes # (Auto) 1.2 K/mm3 (1.2-5.4); Lymphocytes % (Auto) 22.7 % (13.4-35.0); Mean Corpuscular HGB Conc 31 % (30-34); Mean Corpuscular Volume 88 fl (79-97); Monocytes # (Auto) 0.4 K/mm3 (0.0-0.8); Platelet Count 390 K/mm3 (140-440); Red Blood Count 4.68 M/mm3 (3.65-5.03); Red Cell Distribution Width 16.3 % (13.2-15.2)
[2021-03-21 06:57] LABS: Calcium 10.1 mg/dL (8.4-10.2); Chol/HDL Ratio 3.02 %
[2021-03-21] MEDS: amLODIPine 10 MG TAB PO SCH (10:07)
[2021-03-21] MEDS: allopurinoL 300 MG TAB PO SCH (10:07)
[2021-03-21] MEDS: levETIRAcetam 500 MG TAB PO SCH ×2 (10:07→21:52)
[2021-03-21] MEDS: FAMOTIDINE 20 MG TAB PO SCH ×2 (10:07→21:52)
[2021-03-21] MEDS: FERROUS SULFATE 325 MG TAB PO SCH (10:07)
[2021-03-21] MEDS: ASPIRIN 325 MG TAB PO SCH (10:08)
[2021-03-21] MEDS: HEPARIN 5,000 UNIT/1 ML VIAL SUB-Q SCH ×2 (10:08→21:52)
[2021-03-21] MEDS: PANTOPRAZOLE 20 MG TAB PO SCH (10:08)
[2021-03-21] MEDS: LINAGLIPTIN 5 MG TAB PO SCH (10:08)
[2021-03-21] MEDS: MELOXICAM 7.5 MG TAB PO SCH (10:25)
[2021-03-21] MEDS: metFORMIN XR 500MG TAB PO SCH (10:26)
[2021-03-21] MEDS ORDERED: POTASSIUM CHLORIDE ER 20 MEQ TAB PO NR (13:30)
--- NOTE | 2021-03-21 13:41 | Progress Note ---
Subjective Date of service: 03/21/21 Interval history: History of present illness: 85-year-old female who originally came in for a fall with knee pain and a head injury. She was given the diagnosis of a knee contusion and closed head injury. She was no longer able to return to her personal senior living and is currently boarding in the emergency department for case management assistance with placement. Case management is awaiting the results of her Covid test which is NEGATIVE. In the emergency room patient is found to have being difficulty speaking and generalized weakness. Patient was last known well time was 1 hour ago patient is now nonverbal. Subsequently patient was seen and evaluated by telemetry neurology. CT scan of the head shows no intracranial bleed or large territorial infarction. Extensive microangiopathy and moderate cerebral atrophy . Worsening mucosal sinus disease So we are going to admit the patient for stroke work-up 03/21 patient is awake and alert she is oriented to name, and follows simple commands, complains of pain in the right leg, for placement and stroke work-up MRI pending Assessment and plan Suspected TIA Patient moves all extremities Continue neurochecks Awaiting MRI brain Telemetry neurology note reviewed Continue aspirin and statin Hypertension Fair Continue home medications Weakness There is no focal weakness and patient exhibits weakness in all her extremities Await MRI brain Type 2 diabetes Accu-Cheks reviewed Continue insulin sliding scale coverage ? Seizure disorder Continue Keppra Objective - Constitutional Vitals: Vital Signs - 12hr 03/21/21 03/21/21 03/21/21 05:32 10:07 12:00 Temperature 98.4 F Pulse Rate 68 11 L 82 Respiratory 18 Rate Blood Pressure 128/64 [Right] O2 Sat by Pulse 95 97 Oximetry General appearance: Present: no acute distress, well-nourished - EENT Eyes: PERRL, EOM intact ENT: hearing intact, clear oral mucosa - Neck Neck: supple, normal ROM, no masses or JVD - Respiratory Respiratory effort: normal Respiratory: bilateral: CTA, diminished - Cardiovascular Rhythm: regular Heart Sounds: Present: S1 & S2 Extremities: No edema - Gastrointestinal General gastrointestinal: Present: soft, non-tender Rectal Exam: deferred - Integumentary Integumentary: clear - Neurologic Neurologic: no focal deficits, moves all extremities, other (All extremity weakness and motor power is 3/5 in all extremities) - Psychiatric Psychiatric: appropriate mood/affect - Labs CBC & Chem 7: 03/21/21 04:18 03/21/21 04:18 Labs: Abnormal lab results 03/21/21 03/21/21 03/21/21 Range/Units 04:18 04:18 12:01 MCH 27 L (28-32) pg RDW 16.3 H (13.2-15.2) % Potassium 3.3 L (3.6-5.0) mmol/L BUN 19 H (7-17) mg/dL POC Glucose 114 H (70-105) mg/dL LDL Cholesterol Direct 49 L (50-130) mg/dL HDL Cholesterol 35 L (40-59) mg/dL HEART Score - HEART Score Troponin: Troponin T < 0.010 ng/mL (0.00-0.029) 03/20/21 03:02
[2021-03-22 05:56] LABS: BUN/Creatinine Ratio 18; Blood Urea Nitrogen 18 mg/dL (7-17); Calcium 10.3 mg/dL (8.4-10.2); Hemolysis Index 5
--- NOTE | 2021-03-22 10:55 | Discharge Summary ---
Providers - Providers Date of Admission: 03/18/21 04:07 Attending physician: RO WATTS MD 03/16/21 15:16 Consult to Case Management [CONS] Stat Services Needed at Discharge: Home Health Services Notified:: a 03/17/21 10:57 Physical Therapy Evaluation and Treat [CONS] Stat Comment: Reason For Exam: eval and treat 03/17/21 11:30 Occupational Therapy Evaluate and Treat [CONS] Urgent Comment: Reason For Exam: eval and treat 03/20/21 05:25 Occupational Therapy Evaluate and Treat [CONS] Routine Comment: Reason For Exam: Neuro deficits Physical Therapy Evaluation and Treat [CONS] Routine Comment: Reason For Exam: Neuro deficits 03/20/21 09:11 Speech Therapy Evaluation and Treat [CONS] Routine Reason For Exam: suspected CVA Primary care physician: CLINICAL TRIAL EDUCATOR Hospitalization Reason for admission: fall Condition: Stable Hospital course: 85-year-old female who originally came in for a fall with knee pain and a head injury. She was given the diagnosis of a knee contusion and closed head injury. She was no longer able to return to her personal shelter and is currently boarding in the emergency department for case management assistance with placement. Case management is awaiting the results of her Covid test which is NEGATIVE. In the emergency room patient is found to have being difficulty speaking and generalized weakness. Patient was last known well time was 1 hour ago patient is now nonverbal. Subsequently patient was seen and evaluated by telemetry neurology. CT scan of the head shows no intracranial bleed or large territorial infarction. Extensive microangiopathy and moderate cerebral atrophy . Worsening mucosal sinus disease So we are going to admit the patient for stroke work-up 03/21 patient is awake and alert she is oriented to name, and follows simple commands, complains of pain in the right leg, for placement and stroke work-up MRI pending 03/22: Repeated CT head- negative, patient is awake, alert and speaking, no acute distress. MRI can be done outpatient, Discussed with case management, clinically stable Assessment and plan Head Contusion FOLLOWING FALL Patient moves all extremities Continue neurochecks Awaiting MRI brain Telemetry neurology note reviewed Continue aspirin and statin Hypertension Fair Continue home medications Weakness There is no focal weakness and patient exhibits weakness in all her extremities Await MRI brain Type 2 diabetes Accu-Cheks reviewed Continue insulin sliding scale coverage ? Seizure disorder Continue Keppra Disposition: 06 HOME HEALTH CARE SERVICE Final Discharge Diagnosis (Prints w/discharge instructions): Head Contusion Time spent for discharge: 35 mins Core Measure Documentation - Palliative Care Palliative Care/ Comfort Measures: Not Applicable - Core Measures Any of the following diagnoses?: none Exam - Physical Exam Narrative exam: General appearance: Present: no acute distress, well-nourished, sitting up - EENT Eyes: PERRL, EOM intact ENT: hearing intact, clear oral mucosa - Neck Neck: supple, normal ROM, no masses or JVD - Respiratory Respiratory effort: normal Respiratory: bilateral: CTA, diminished - Cardiovascular Rhythm: regular Heart Sounds: Present: S1 & S2 Extremities: No edema - Gastrointestinal General gastrointestinal: Present: soft, non-tender Rectal Exam: deferred - Integumentary Integumentary: clear - Neurologic Neurologic: no focal deficits, moves all extremities, other (All extremity weakness and motor power is 3/5 in all extremities) - Psychiatric Psychiatric: appropriate mood/affect - Constitutional Vitals: Temp Pulse Resp BP Pulse Ox 98.7 F 81 18 127/65 92 03/22/21 07:42 03/22/21 10:45 03/22/21 07:42 03/22/21 07:42 03/22/21 07:42 Plan Activity: advance as tolerated, fall precautions Diet: low fat Special Instructions: record daily weights, record daily BP diary, physical therapy, occupational therapy, home health RN Plan of Treatment: Outpatient MRI [facility] Follow up with: PRIMARY CAREMD [Primary Care Provider] - 3-5 Days DEANDRA BAIG MD [Staff Physician] - 7 Days Prescriptions: Aspirin [Adult Aspirin] 81 mg PO DAILY #30 tablet. metFORMIN XR [Glucophage XR] 1,000 mg PO QDDIAB #60 tablet Famotidine [Pepcid] 20 mg PO BID #60 tablet Linagliptin [Tradjenta] 5 mg PO QAMDIAB #30 tablet traMADoL [Ultram 50 MG tab] 225 mg PO Q6HR #20 Other Discharge Orders: MR brain wo con Location: None Selected
--- NOTE | 2021-03-22 10:57 | Electrocardiograph Report ---
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
--- NOTE | 2021-03-22 11:46 | Cat Scan Report ---
CT HEAD WITHOUT CONTRAST HISTORY: head trauma. TECHNIQUE: Axial imaging performed from the skull apex through the skull base without the use of con trast. All CT scans at this location are performed using CT dose reduction for ALARA by means of aut omated exposure control. COMPARISON: None FINDINGS: Parenchyma: No acute intracranial hemorrhage or parenchymal abnormality. Advanced diffuse volume los s and advanced chronic microangiopathy in the white matter appears stable. No chronic infarct. No ext ra-axial fluid collection. Ventricles: There is mild diffuse brain atrophy with commensurate ventricular enlargement which is l ikely age appropriate. Soft tissues: Soft tissues including the orbits appear normal. Bones: No acute osseous abnormality. Sinuses: Chronic pansinusitis appears relatively stable. The mastoid air cells are clear. IMPRESSION: No acute abnormality. Advanced volume loss and chronic white matter changes which appear stable since 03/20/2021. Signer Name: Natanael Rene Jr, MD Signed: 03/22/2021 11:42 AM Workstation Name: [id number]
[2021-03-22] MEDS: LINAGLIPTIN 5 MG TAB PO SCH (11:59)
[2021-03-22] MEDS: PANTOPRAZOLE 20 MG TAB PO SCH (12:00)
[2021-03-22] MEDS: FERROUS SULFATE 325 MG TAB PO SCH (12:00)
[2021-03-22] MEDS: ASPIRIN 325 MG TAB PO SCH (12:00)
[2021-03-22] MEDS: FAMOTIDINE 20 MG TAB PO SCH ×2 (12:00→21:17)
[2021-03-22] MEDS: HEPARIN 5,000 UNIT/1 ML VIAL SUB-Q SCH ×2 (12:00→21:17)
[2021-03-22] MEDS: MELOXICAM 7.5 MG TAB PO SCH (12:00)
[2021-03-22] MEDS: levETIRAcetam 500 MG TAB PO SCH ×2 (12:00→21:17)
[2021-03-22] MEDS: allopurinoL 300 MG TAB PO SCH (12:00)
[2021-03-22] MEDS: metFORMIN XR 500MG TAB PO SCH (12:01)
[2021-03-22] MEDS: amLODIPine 10 MG TAB PO SCH (12:01)
[2021-03-23] MEDS: LINAGLIPTIN 5 MG TAB PO SCH (11:07)
[2021-03-23] MEDS: FAMOTIDINE 20 MG TAB PO SCH ×2 (11:07→22:08)
[2021-03-23] MEDS: ASPIRIN 325 MG TAB PO SCH (11:07)
[2021-03-23] MEDS: allopurinoL 300 MG TAB PO SCH (11:08)
[2021-03-23] MEDS: metFORMIN XR 500MG TAB PO SCH (11:08)
[2021-03-23] MEDS: MELOXICAM 7.5 MG TAB PO SCH (11:08)
[2021-03-23] MEDS: FERROUS SULFATE 325 MG TAB PO SCH (11:09)
[2021-03-23] MEDS: HEPARIN 5,000 UNIT/1 ML VIAL SUB-Q SCH ×2 (11:09→22:09)
[2021-03-23] MEDS: PANTOPRAZOLE 20 MG TAB PO SCH (11:09)
[2021-03-23] MEDS: amLODIPine 10 MG TAB PO SCH (11:09)
[2021-03-23] MEDS: levETIRAcetam 500 MG TAB PO SCH ×2 (11:09→22:09)
--- NOTE | 2021-03-23 12:39 | Progress Note ---
Assessment and Plan Assessment and plan: 85-year-old female who originally came in for a fall with knee pain and a head injury. She was given the diagnosis of a knee contusion and closed head injury. She was no longer able to return to her personal intermediate and is currently boarding in the emergency department for case management assistance with placement. Case management is awaiting the results of her Covid test which is NEGATIVE. In the emergency room patient is found to have being difficulty speaking and generalized weakness. Patient was last known well time was 1 hour ago patient is now nonverbal. Subsequently patient was seen and evaluated by telemetry neurology. CT scan of the head shows no intracranial bleed or large territorial infarction. Extensive microangiopathy and moderate cerebral atrophy . Worsening mucosal sinus disease So we are going to admit the patient for stroke work-up 03/21 patient is awake and alert she is oriented to name, and follows simple commands, complains of pain in the right leg, for placement and stroke work-up MRI pending 03/22: Repeated CT head- negative, patient is awake, alert and speaking, no acute distress. MRI can be done outpatient, Discussed with case management, clinically stable 03/23: No new complaints. Continue current management continue with daily PT awaiting placement Assessment and plan Head Contusion FOLLOWING FALL Patient moves all extremities Continue neurochecks Telemetry neurology note reviewed Continue aspirin and statin Hypertension Fair Continue home medications Weakness There is no focal weakness and patient exhibits weakness in all her extremities Await MRI brain Type 2 diabetes Accu-Cheks reviewed Continue insulin sliding scale coverage ? Seizure disorder Continue Keppra History Interval history: Patient seen and examined still awaiting placement. Did not leave yesterday no new complaints tolerating diet Hospitalist Physical - Physical exam Narrative exam: General appearance: Present: no acute distress, well-nourished, sitting up in bed - EENT Eyes: PERRL, EOM intact ENT: hearing intact, clear oral mucosa - Neck Neck: supple, normal ROM, no masses or JVD - Respiratory Respiratory effort: normal Respiratory: bilateral: CTA, diminished - Cardiovascular Rhythm: regular Heart Sounds: Present: S1 & S2 Extremities: No edema - Gastrointestinal General gastrointestinal: Present: soft, non-tender Rectal Exam: deferred - Integumentary Integumentary: clear - Neurologic Neurologic: no focal deficits, moves all extremities, other (All extremity weakness and motor power is 4/5 in all extremities) - Psychiatric Psychiatric: appropriate mood/affect - Constitutional Vitals: Temp Pulse Resp BP Pulse Ox 98.2 F 91 H 18 113/73 100 03/23/21 11:53 03/23/21 11:53 03/23/21 11:53 03/23/21 11:53 03/23/21 11:53 General appearance: Present: no acute distress, well-nourished HEART Score - HEART Score Troponin: Troponin T < 0.010 ng/mL (0.00-0.029) 03/20/21 03:02 Results - Labs CBC & Chem 7: 03/21/21 04:18 03/22/21 03:48 Labs: Laboratory Last Values WBC 5.5 K/mm3 (4.5-11.0) 03/21/21 04:18 RBC 4.68 M/mm3 (3.65-5.03) 03/21/21 04:18 Hgb 12.8 gm/dl (10.1-14.3) 03/21/21 04:18 Hct 41.0 % (30.3-42.9) 03/21/21 04:18 MCV 88 fl (79-97) 03/21/21 04:18 MCH 27 pg (28-32) L 03/21/21 04:18 MCHC 31 % (30-34) 03/21/21 04:18 RDW 16.3 % (13.2-15.2) H 03/21/21 04:18 Plt Count 390 K/mm3 (140-440) 03/21/21 04:18 Lymph % (Auto) 22.7 % (13.4-35.0) 03/21/21 04:18 [place] % (Auto) 7.0 % (0.0-7.3) 03/21/21 04:18 Eos % (Auto) 1.8 % (0.0-4.3) 03/21/21 04:18 Baso % (Auto) 0.4 % (0.0-1.8) 03/21/21 04:18 Lymph # (Auto) 1.2 K/mm3 (1.2-5.4) 03/21/21 04:18 [place] # (Auto) 0.4 K/mm3 (0.0-0.8) 03/21/21 04:18 Eos # (Auto) 0.1 K/mm3 (0.0-0.4) 03/21/21 04:18 Baso # (Auto) 0.0 K/mm3 (0.0-0.1) 03/21/21 04:18 Seg Neutrophils % 68.1 % (40.0-70.0) 03/21/21 04:18 Seg Neutrophils # 3.7 K/mm3 (1.8-7.7) 03/21/21 04:18 PT 14.4 Sec. (12.2-14.9) 03/20/21 03:02 INR 1.06 (0.87-1.13) 03/20/21 03:02 APTT 26.9 Sec. (24.2-36.6) 03/20/21 03:02 Thrombin Time 17.3 Sec. (15.1-19.6) 03/20/21 03:02 Sodium 140 mmol/L (137-145) 03/22/21 03:48 Potassium 3.6 mmol/L (3.6-5.0) 03/22/21 03:48 Chloride 102.4 mmol/L (98-107) 03/22/21 03:48 Carbon Dioxide 25 mmol/L (22-30) 03/22/21 03:48 Anion Gap 16 mmol/L 03/22/21 03:48 BUN 18 mg/dL (7-17) H 03/22/21 03:48 Creatinine 1.0 mg/dL (0.6-1.2) 03/22/21 03:48 Estimated GFR > 60 ml/min 03/22/21 03:48 BUN/Creatinine Ratio 18 % 03/22/21 03:48 Glucose 87 mg/dL (65-100) 03/22/21 03:48 POC Glucose 189 mg/dL (70-105) H 03/23/21 11:37 Calcium 10.3 mg/dL (8.4-10.2) H 03/22/21 03:48 Total Bilirubin 0.50 mg/dL (0.1-1.2) 03/20/21 03:02 AST 39 units/L (5-40) 03/20/21 03:02 ALT 29 units/L (7-56) 03/20/21 03:02 Alkaline Phosphatase 91 units/L (35-129) 03/20/21 03:02 Total Creatine Kinase 432 units/L (30-135) H 03/20/21 03:02 CK-MB (CK-2) 2.9 ng/mL (0.0-4.0) 03/20/21 03:02 CK-MB (CK-2) Rel Index 0.6 (0-4) 03/20/21 03:02 Troponin T < 0.010 ng/mL (0.00-0.029) 03/20/21 03:02 Total Protein 8.5 g/dL (6.3-8.2) H 03/20/21 03:02 Albumin 4.5 g/dL (3.9-5) 03/20/21 03:02 Albumin/Globulin Ratio 1.1 % 03/20/21 03:02 Triglycerides 131 mg/dL (2-149) 03/21/21 04:18 Cholesterol 106 mg/dL (50-199) 03/21/21 04:18 LDL Cholesterol Direct 49 mg/dL (50-130) L 03/21/21 04:18 HDL Cholesterol 35 mg/dL (40-59) L 03/21/21 04:18 Cholesterol/HDL Ratio 3.02 % 03/21/21 04:18 Urine Color Yellow (Yellow) 03/20/21 16:39 Urine Turbidity Clear (Clear) 03/20/21 16:39 Urine pH 5.0 (5.0-7.0) 03/20/21 16:39 Ur Specific [place] 1.018 (1.003-1.030) 03/20/21 16:39 Urine Protein 30 mg/dl mg/dL (Negative) 03/20/21 16:39 Urine Glucose (UA) Neg mg/dL (Negative) 03/20/21 16:39 Urine Ketones Tr mg/dL (Negative) 03/20/21 16:39 Urine Blood Neg (Negative) 03/20/21 16:39 Urine Nitrite Neg (Negative) 03/20/21 16:39 Urine Bilirubin Neg (Negative) 03/20/21 16:39 Urine Urobilinogen 4.0 mg/dL (<2.0) 03/20/21 16:39 Ur Leukocyte Esterase Neg (Negative) 03/20/21 16:39 Urine WBC (Auto) 1.0 /HPF (0.0-6.0) 03/20/21 16:39 Urine RBC (Auto) 1.0 /HPF (0.0-6.0) 03/20/21 16:39 U Epithel Cells (Auto) 1.0 /HPF (0-13.0) 03/20/21 16:39 Urine Mucus Few /HPF 03/20/21 16:39 Coronavirus (PCR) Negative (Negative) 03/17/21 08:30 [place]/IV: Voiding Method External Female Catheter Active Medications - Current Medications Current Medications: Generic Name Dose Route Start Last Admin Trade Name Freq PRN Reason Stop Dose Admin Acetaminophen 650 mg 03/20/21 05:24 03/20/21 13:27 Acetaminophen 325 Mg Tab PO 650 mg Q4H PRN Administration Pain MILD(1-3)/Fever >100.5/FERRARI Albuterol 2.5 mg 03/20/21 05:24 Albuterol 2.5 Mg/3 Ml Nebu IH Q4HRT PRN Shortness Of Breath Allopurinol 300 mg 03/18/21 10:00 03/23/21 11:08 Allopurinol 300 Mg Tab PO 300 mg QDAY CONNIE Administration Amlodipine Besylate 10 mg 03/18/21 10:00 03/23/21 11:09 Amlodipine 10 Mg Tab PO 10 mg DAILY CONNIE Administration Aspirin 325 mg 03/20/21 10:00 03/23/21 11:07 Aspirin 325 Mg Tab PO 325 mg QDAY CONNIE Administration Atorvastatin Calcium 40 mg 03/20/21 22:00 03/22/21 21:17 Atorvastatin 40 Mg Tab PO 40 mg QHS CONNIE Administration Famotidine 20 mg 03/20/21 10:00 03/23/21 11:07 Famotidine 20 Mg Tab PO 20 mg BID CONNIE Administration Ferrous Sulfate 325 mg 03/18/21 10:00 03/23/21 11:09 Ferrous Sulfate 325 Mg Tab PO 325 mg DAILY CONNIE Administration Heparin Sodium (Porcine) 5,000 unit 03/20/21 10:00 03/23/21 11:09 Heparin 5,000 Unit/1 Ml Vial SUB-Q 5,000 unit Q12HR CONNIE Administration Hydromorphone HCl 0.5 mg 03/20/21 05:24 Hydromorphone 1 Mg/1 Ml Inj IV Q3H PRN Pain , Severe (7-10) Sodium Chloride 1,000 mls @ 100 mls/hr 03/20/21 05:30 Nacl 0.9% 1000 Ml IV DIRECT CONNIE Levetiracetam 500 mg 03/17/21 22:00 03/23/21 11:09 Levetiracetam 500 Mg Tab PO 500 mg BID CONNIE Administration Linagliptin 5 mg 03/18/21 08:00 03/23/21 11:07 Linagliptin 5 Mg Tab PO 5 mg QAMDIAB CONNIE Administration Meloxicam 7.5 mg 03/20/21 10:00 03/23/21 11:08 Meloxicam 7.5 Mg Tab PO 7.5 mg DAILY CONNIE Administration Metformin HCl 1,000 mg 03/18/21 08:00 03/23/21 11:08 Metformin Xr 500mg Tab PO 1,000 mg QDDIAB CONNIE Administration Ondansetron HCl 4 mg 03/20/21 05:24 Ondansetron 4 Mg/2 Ml Inj IV Q8H PRN Nausea And Vomiting Oxycodone/Acetaminophen 1 tab 03/20/21 05:24 03/20/21 06:31 Oxycodone /Acetaminophen 5-325mg Tab PO 1 tab Q6H PRN Administration Pain, Moderate (4-6) Pantoprazole Sodium 20 mg 03/18/21 10:00 03/23/21 11:09 Pantoprazole 20 Mg Tab PO 20 mg QAM CONNIE Administration Senna 8.6 mg 03/19/21 13:47 Sennosides 8.6 Mg Tab PO QHS PRN Laxative Effect Sodium Chloride 10 ml 03/20/21 10:00 03/23/21 11:08 Sodium Chloride 0.9% 10 Ml Flush Syringe IV 10 ml BID CONNIE Administration Sodium Chloride 10 ml 03/20/21 05:24 Sodium Chloride 0.9% 10 Ml Flush Syringe IV PRN PRN LINE FLUSH Tramadol HCl 225 mg 03/20/21 06:00 Tramadol 50 Mg Tab PO Q6HR CONNIE
[2021-03-23] MEDS: traMADol 50 MG TAB PO SCH ×2 (14:16→14:17)
[2021-03-24 09:09] VITALS: BP 117/67
[2021-03-24] MEDS: ASPIRIN 325 MG TAB PO SCH (11:17)
[2021-03-24] MEDS: allopurinoL 300 MG TAB PO SCH (11:17)
[2021-03-24] MEDS: MELOXICAM 7.5 MG TAB PO SCH (11:17)
[2021-03-24] MEDS: levETIRAcetam 500 MG TAB PO SCH (11:17)
[2021-03-24] MEDS: metFORMIN XR 500MG TAB PO SCH (11:17)
[2021-03-24] MEDS: FAMOTIDINE 20 MG TAB PO SCH (11:17)
[2021-03-24] MEDS: amLODIPine 10 MG TAB PO SCH (11:17)
[2021-03-24] MEDS: PANTOPRAZOLE 20 MG TAB PO SCH (11:17)
[2021-03-24] MEDS: FERROUS SULFATE 325 MG TAB PO SCH (11:18)
[2021-03-24] MEDS: HEPARIN 5,000 UNIT/1 ML VIAL SUB-Q SCH (11:18)
[2021-03-24] MEDS: LINAGLIPTIN 5 MG TAB PO SCH (11:19)
--- NOTE | 2021-03-24 18:30 | Discharge Summary ---
Providers - Providers Date of Admission: 03/20/21 04:07 Attending physician: RO WATTS MD 03/16/21 15:16 Consult to Case Management [CONS] Stat Services Needed at Discharge: Home Health Services Notified:: a 03/17/21 10:57 Physical Therapy Evaluation and Treat [CONS] Stat Comment: Reason For Exam: eval and treat 03/17/21 11:30 Occupational Therapy Evaluate and Treat [CONS] Urgent Comment: Reason For Exam: eval and treat 03/20/21 05:25 Occupational Therapy Evaluate and Treat [CONS] Routine Comment: Reason For Exam: Neuro deficits Physical Therapy Evaluation and Treat [CONS] Routine Comment: Reason For Exam: Neuro deficits 03/20/21 09:11 Speech Therapy Evaluation and Treat [CONS] Routine Reason For Exam: suspected CVA Primary care physician: MENTAL HEALTH NURSE Hospitalization Reason for admission: fall Condition: Stable Hospital course: 85-year-old female who originally came in for a fall with knee pain and a head injury. She was given the diagnosis of a knee contusion and closed head injury. She was no longer able to return to her personal fci and is currently boarding in the emergency department for case management assistance with placement. Case management is awaiting the results of her Covid test which is NEGATIVE. In the emergency room patient is found to have being difficulty speaking and generalized weakness. Patient was last known well time was 1 hour ago patient is now nonverbal. Subsequently patient was seen and evaluated by telemetry neurology. CT scan of the head shows no intracranial bleed or large territorial infarction. Extensive microangiopathy and moderate cerebral atrophy . Worsening mucosal sinus disease So we are going to admit the patient for stroke work-up 03/21 patient is awake and alert she is oriented to name, and follows simple commands, complains of pain in the right leg, for placement and stroke work-up MRI pending 03/22: Repeated CT head- negative, patient is awake, alert and speaking, no acute distress. MRI can be done outpatient, Discussed with case management, clinically stable 03/23: No new complaints. Continue current management continue with daily PT awaiting placement 03/24: Patient stable this morning no new complaints with expected into Nursing Home facility. Head Contusion FOLLOWING FALL Patient moves all extremities Continue neurochecks Awaiting MRI brain Telemetry neurology note reviewed Continue aspirin and statin Hypertension Fair Continue home medications Weakness There is no focal weakness and patient exhibits weakness in all her extremities Await MRI brain Type 2 diabetes Accu-Cheks reviewed Continue insulin sliding scale coverage ? Seizure disorder Continue [place] Disposition: 03 [facility]M FACILITY Final Discharge Diagnosis (Prints w/discharge instructions): Head contusion following a fall Time spent for discharge: 35 mins Core Measure Documentation - Palliative Care Palliative Care/ Comfort Measures: Not Applicable - Core Measures Any of the following diagnoses?: none Exam - Physical Exam Narrative exam: General appearance: Present: no acute distress, well-nourished, sitting up in bed - EENT Eyes: PERRL, EOM intact ENT: hearing intact, clear oral mucosa - Neck Neck: supple, normal ROM, no masses or JVD - Respiratory Respiratory effort: normal Respiratory: bilateral: CTA, diminished - Cardiovascular Rhythm: regular Heart Sounds: Present: S1 & S2 Extremities: No edema - Gastrointestinal General gastrointestinal: Present: soft, non-tender Rectal Exam: deferred - Integumentary Integumentary: clear - Neurologic Neurologic: no focal deficits, moves all extremities, other (All extremity weakness and motor power is 4/5 in all extremities) - Psychiatric Psychiatric: appropriate mood/affect - Constitutional Vitals: Temp Pulse Resp BP Pulse Ox 98.0 F 69 18 117/67 96 03/24/21 07:58 03/24/21 12:00 03/24/21 07:58 03/24/21 07:58 03/24/21 12:00 Plan Plan of Treatment: Outpatient MRI [facility] Follow up with: PRIMARY MD MICHELLE [Primary Care Provider] - 3-5 Days DEANDRA BAIG MD [Staff Physician] - 7 Days Prescriptions: Aspirin [Adult Aspirin] 81 mg PO DAILY #30 tablet. metFORMIN XR [Glucophage XR] 1,000 mg PO QDDIAB #60 tablet Famotidine [Pepcid] 20 mg PO BID #60 tablet Linagliptin [Tradjenta] 5 mg PO QAMDIAB #30 tablet traMADoL [Ultram 50 MG tab] 225 mg PO Q6HR #20 Other Discharge Orders: MR brain wo con Location: None Selected
== END 2021-03-24 17:09 ==
LOC: ED 10:12 → UNDOADMOB 03-18 04:07 → 4A 03-18 04:07
PROVIDERS: ADMIT Hospitalist; ATTEND Internal Medicine
DX: G45.9 Transient cerebral ischemic attack, unspecified (principal); Z20.822 Contact with and (suspected) exposure to COVID-19; I10 Essential (primary) hypertension; E11.9 Type 2 diabetes mellitus without complications; R53.1 Weakness; M25.561 Pain in right knee; M19.90 Unspecified osteoarthritis, unspecified site; R56.9 Unspecified convulsions; Z79.82 Long term (current) use of aspirin; Z87.891 Personal history of nicotine dependence; R41.82 Altered mental status, unspecified; R29.810 Facial weakness; R47.81 Slurred speech; Z79.84 Long term (current) use of oral hypoglycemic drugs
CPT/HCPCS: 36415; 70450; 72125; 72170; 73562; 80048; 80053; 80061; 81001; 82550; 82553; 82962; 84484; 85025; 85610; 85670; 85730; 92526; 92610; 93005; 93306; 94760; 96372; 97110; 97530; 97535; 99285; 99291; A9270; G0378; J1644; U0003; 99284

== ENCOUNTER 2021-04-19 22:11 | Inpatient (IN) | payer MEDICARE ==
--- NOTE | 2021-04-19 22:17 | Emergency Department Report ---
ED Altered Mental Status HPI - General Stated Complaint: UNRESPONSIVE,LETHARGIC PUI?: No Time Seen by Provider: 04/19/21 22:13 Source: EMS, old records reviewed Mode of arrival: Stretcher Limitations: Altered Mental Status - History of Present Illness Initial Comments: CC: lethargic, unresponsive HPI: This is an 86-year-old female who presents with lethargy and decreased level of consciousness from [facility]. Patient has history of TIA, CVA, diabetes mellitus, gout, vitamin D, GERD. Patient had blood sugar 138. Manual blood pressure 122/56. Patient was tachycardic at 115. Oxygen saturation 99% on 4 L nasal cannula. Patient currently nonverbal. According to electronic medical record, patient was admitted to this hospital 1 month ago in March. Patient was admitted for stroke work-up. Upon discharge it was documented that patient was awake alert talking. MD Complaint: altered mental status, decreased responsiveness -: Gradual, days(s), unknown Severity: moderate Consistency of Symptoms: constant Context: other (Recent hospitalization, [facility]) - Related Data Home Medications Medication Instructions Recorded Confirmed Last Taken Ferrous Sulfate [Iron 325 MG] 325 mg PO DAILY 03/17/21 03/17/21 Unknown Lovastatin [Altoprev] 40 mg PO DAILY 03/17/21 03/17/21 Unknown Meloxicam [Mobic] 7.5 mg DAILY 03/17/21 03/17/21 Unknown Omeprazole 20 mg PO DAILY 03/17/21 03/17/21 Unknown Sennosides [Senna] 40 mg PO DAILY 03/17/21 03/17/21 Unknown Sitagliptin Phos/Metformin HCl tab DAILY 03/17/21 Unknown [Janumet XR 50-1,000 mg] allopurinoL [Zyloprim] 300 mg PO QDAY 03/17/21 03/17/21 Unknown amLODIPine 10 mg PO DAILY 03/17/21 03/17/21 Unknown levETIRAcetam [Keppra TAB] 500 mg PO BID 03/17/21 03/17/21 Unknown Previous Rx's Medication Instructions Recorded Last Taken Type Aspirin [Adult Aspirin] 81 mg PO DAILY #30 tablet. 03/22/21 Unknown Rx Famotidine [Pepcid] 20 mg PO BID #60 tablet 03/22/21 Unknown Rx Linagliptin [Tradjenta] 5 mg PO QAMDIAB #30 tablet 03/22/21 Unknown Rx metFORMIN XR [Glucophage XR] 1,000 mg PO QDDIAB #60 tablet 03/22/21 Unknown Rx traMADoL [Ultram 50 MG tab] 225 mg PO Q6HR #20 03/22/21 Unknown Rx Allergies Allergy/AdvReac Type Severity Reaction Status Date / Time No Known Allergies Allergy Verified 03/15/21 10:30 ED Review of Systems ROS: Stated complaint: UNRESPONSIVE,LETHARGIC Other details as noted in HPI Comment: Unobtainable due to pts medical conditions ED Past Medical Hx - Past Medical History Previous Medical History?: Yes Hx Hypertension: Yes Hx Diabetes: Yes - Surgical History Additional Surgical History: Unable to obtain patient has altered mental status - Social History Smoking Status: Never Smoker Substance Use Type: Other (Unable to obtain due to patient's clinical status) - Medications Home Medications: Home Medications Medication Instructions Recorded Confirmed Last Taken Type Ferrous Sulfate [Iron 325 MG] 325 mg PO DAILY 03/17/21 03/17/21 Unknown History Lovastatin [Altoprev] 40 mg PO DAILY 03/17/21 03/17/21 Unknown History Meloxicam [Mobic] 7.5 mg DAILY 03/17/21 03/17/21 Unknown History Omeprazole 20 mg PO DAILY 03/17/21 03/17/21 Unknown History Sennosides [Senna] 40 mg PO DAILY 03/17/21 03/17/21 Unknown History Sitagliptin Phos/Metformin HCl tab DAILY 03/17/21 Unknown History [Janumet XR 50-1,000 mg] allopurinoL [Zyloprim] 300 mg PO QDAY 03/17/21 03/17/21 Unknown History amLODIPine 10 mg PO DAILY 03/17/21 03/17/21 Unknown History levETIRAcetam [Keppra TAB] 500 mg PO BID 03/17/21 03/17/21 Unknown History Aspirin [Adult Aspirin] 81 mg PO DAILY #30 tablet. 03/22/21 Unknown Rx Famotidine [Pepcid] 20 mg PO BID #60 tablet 03/22/21 Unknown Rx Linagliptin [Tradjenta] 5 mg PO QAMDIAB #30 tablet 03/22/21 Unknown Rx metFORMIN XR [Glucophage XR] 1,000 mg PO QDDIAB #60 tablet 03/22/21 Unknown Rx traMADoL [Ultram 50 MG tab] 225 mg PO Q6HR #20 03/22/21 Unknown Rx ED Physical Exam - General General appearance: in no apparent distress, lethargic, other (Very warm to touch, copious thick secretions from mouth, protecting airway will localize pain nonverbal keeps eyes closed) - Head Head exam: Present: atraumatic, normocephalic - Eye Eye exam: Present: other (Dried discharge both eyes) - ENT ENT exam: Present: mucous membranes moist - Neck Neck exam: Present: normal inspection, full ROM - Respiratory Respiratory exam: Present: decreased breath sounds, other (Rapid breathing). Absent: respiratory distress, wheezes, rales, rhonchi - Cardiovascular Cardiovascular Exam: Present: normal rhythm, tachycardia, normal heart sounds. Absent: systolic murmur, diastolic murmur, rubs, gallop - GI/Abdominal GI/Abdominal exam: Present: soft. Absent: distended, tenderness, guarding, rebound - Rectal Rectal exam: Present: normal inspection, other (Brown stool no gross blood) - Extremities Exam Extremities exam: Present: normal inspection - Neurological Exam Neurological exam: Present: altered - Psychiatric Psychiatric exam: Present: flat affect - Skin Skin exam: Present: warm, dry, intact, normal color, other (No decubitus ulcer). Absent: rash ED Course Vital Signs 04/19/21 04/19/21 04/19/21 22:27 22:32 23:30 Temperature 101.1 F H 101.1 F H Pulse Rate 121 H 105 H Respiratory 24 24 Rate Blood Pressure Blood Pressure 126/73 [Left] O2 Sat by Pulse 93 93 Oximetry 04/19/21 04/19/21 04/19/21 23:38 23:42 23:46 Temperature Pulse Rate 103 H 105 H 102 H Respiratory 23 22 21 Rate Blood Pressure 121/64 Blood Pressure 127/63 [Left] O2 Sat by Pulse 99 98 99 Oximetry 04/20/21 04/20/21 04/20/21 00:00 00:16 00:30 Temperature Pulse Rate 97 H 104 H 101 H Respiratory 18 21 19 Rate Blood Pressure 112/60 120/63 127/60 Blood Pressure [Left] O2 Sat by Pulse 99 99 99 Oximetry 04/20/21 04/20/21 04/20/21 00:46 01:00 01:16 Temperature 99.4 F Pulse Rate 100 H 102 H 104 H Respiratory 18 22 20 Rate Blood Pressure 137/74 112/59 112/58 Blood Pressure [Left] O2 Sat by Pulse 99 100 99 Oximetry 04/20/21 01:30 Temperature Pulse Rate 97 H Respiratory 19 Rate Blood Pressure 119/65 Blood Pressure [Left] O2 Sat by Pulse 93 Oximetry - Lab Data Result diagrams: 04/19/21 23:33 04/19/21 23:33 Lab Results 04/19/21 04/19/21 04/19/21 Range/Units 23:33 23:33 23:33 WBC 11.8 H (4.5-11.0) K/mm3 RBC 4.21 (3.65-5.03) M/mm3 Hgb 12.2 (10.1-14.3) gm/dl Hct 38.8 (30.3-42.9) % MCV 92 (79-97) fl MCH 29 (28-32) pg MCHC 31 (30-34) % RDW 18.0 H (13.2-15.2) % Plt Count 266 (140-440) K/mm3 Lymph % (Auto) 6.3 L (13.4-35.0) % [place] % (Auto) 3.8 (0.0-7.3) % Eos % (Auto) 0.2 (0.0-4.3) % Baso % (Auto) 0.2 (0.0-1.8) % Lymph # (Auto) 0.7 L (1.2-5.4) K/mm3 [place] # (Auto) 0.4 (0.0-0.8) K/mm3 Eos # (Auto) 0.0 (0.0-0.4) K/mm3 Baso # (Auto) 0.0 (0.0-0.1) K/mm3 Seg Neutrophils % 89.5 H (40.0-70.0) % Seg Neutrophils # 10.6 H (1.8-7.7) K/mm3 D-Dimer (0-234) ng/mlDDU Sodium Cancelled Potassium Cancelled Chloride Cancelled Carbon Dioxide Cancelled Anion Gap Cancelled BUN Cancelled Creatinine Cancelled Estimated GFR Cancelled BUN/Creatinine Ratio Cancelled Glucose Cancelled Lactic Acid 2.40 H* (0.7-2.0) mmol/L Calcium Cancelled Ferritin (10.0-200.0) ng/mL Total Bilirubin Cancelled AST Cancelled ALT Cancelled Alkaline Phosphatase Cancelled Troponin T 0.044 H (0.00-0.029) ng/mL Total Protein Cancelled Albumin Cancelled Albumin/Globulin Ratio Cancelled Urine Color (Yellow) Urine Turbidity (Clear) Urine pH (5.0-7.0) Ur Specific Raymond (1.003-1.030) Urine Protein (Negative) mg/dL Urine Glucose (UA) (Negative) mg/dL Urine Ketones (Negative) mg/dL Urine Blood (Negative) Urine Nitrite (Negative) Urine Bilirubin (Negative) Urine Urobilinogen (<2.0) mg/dL Ur Leukocyte Esterase (Negative) Urine WBC (Auto) (0.0-6.0) /HPF Urine RBC (Auto) (0.0-6.0) /HPF Urine Bacteria (Auto) (Negative) /HPF Urine WBC Clumps /HPF Hyaline Casts /LPF Urine Mucus /HPF Urine Yeast (Budding) /HPF 04/19/21 04/19/21 04/19/21 Range/Units 23:33 23:33 23:33 WBC (4.5-11.0) K/mm3 RBC (3.65-5.03) M/mm3 Hgb (10.1-14.3) gm/dl Hct (30.3-42.9) % MCV (79-97) fl MCH (28-32) pg MCHC (30-34) % RDW (13.2-15.2) % Plt Count (140-440) K/mm3 Lymph % (Auto) (13.4-35.0) % [place] % (Auto) (0.0-7.3) % Eos % (Auto) (0.0-4.3) % Baso % (Auto) (0.0-1.8) % Lymph # (Auto) (1.2-5.4) K/mm3 [place] # (Auto) (0.0-0.8) K/mm3 Eos # (Auto) (0.0-0.4) K/mm3 Baso # (Auto) (0.0-0.1) K/mm3 Seg Neutrophils % (40.0-70.0) % Seg Neutrophils # (1.8-7.7) K/mm3 D-Dimer 1413.64 H (0-234) ng/mlDDU Sodium 163 H* Potassium 5.0 Chloride 128.2 H Carbon Dioxide 17 L Anion Gap 23 BUN 158 H Creatinine 6.1 H Estimated GFR 8 BUN/Creatinine Ratio 26 Glucose 155 H Lactic Acid (0.7-2.0) mmol/L Calcium 9.7 Ferritin 662.6 H (10.0-200.0) ng/mL Total Bilirubin 0.50 AST 11 ALT 20 Alkaline Phosphatase 75 Troponin T (0.00-0.029) ng/mL Total Protein 6.7 Albumin 3.8 L Albumin/Globulin Ratio 1.3 Urine Color (Yellow) Urine Turbidity (Clear) Urine pH (5.0-7.0) Ur Specific Raymond (1.003-1.030) Urine Protein (Negative) mg/dL Urine Glucose (UA) (Negative) mg/dL Urine Ketones (Negative) mg/dL Urine Blood (Negative) Urine Nitrite (Negative) Urine Bilirubin (Negative) Urine Urobilinogen (<2.0) mg/dL Ur Leukocyte Esterase (Negative) Urine WBC (Auto) (0.0-6.0) /HPF Urine RBC (Auto) (0.0-6.0) /HPF Urine Bacteria (Auto) (Negative) /HPF Urine WBC Clumps /HPF Hyaline Casts /LPF Urine Mucus /HPF Urine Yeast (Budding) /HPF 04/19/21 Range/Units 23:35 WBC (4.5-11.0) K/mm3 RBC (3.65-5.03) M/mm3 Hgb (10.1-14.3) gm/dl Hct (30.3-42.9) % MCV (79-97) fl MCH (28-32) pg MCHC (30-34) % RDW (13.2-15.2) % Plt Count (140-440) K/mm3 Lymph % (Auto) (13.4-35.0) % [place] % (Auto) (0.0-7.3) % Eos % (Auto) (0.0-4.3) % Baso % (Auto) (0.0-1.8) % Lymph # (Auto) (1.2-5.4) K/mm3 [place] # (Auto) (0.0-0.8) K/mm3 Eos # (Auto) (0.0-0.4) K/mm3 Baso # (Auto) (0.0-0.1) K/mm3 Seg Neutrophils % (40.0-70.0) % Seg Neutrophils # (1.8-7.7) K/mm3 D-Dimer (0-234) ng/mlDDU Sodium Potassium Chloride Carbon Dioxide Anion Gap BUN Creatinine Estimated GFR BUN/Creatinine Ratio Glucose Lactic Acid (0.7-2.0) mmol/L Calcium Ferritin (10.0-200.0) ng/mL Total Bilirubin AST ALT Alkaline Phosphatase Troponin T (0.00-0.029) ng/mL Total Protein Albumin Albumin/Globulin Ratio Urine Color Yellow (Yellow) Urine Turbidity Cloudy (Clear) Urine pH 5.0 (5.0-7.0) Ur Specific Raymond 1.016 (1.003-1.030) Urine Protein 30 mg/dl (Negative) mg/dL Urine Glucose (UA) Neg (Negative) mg/dL Urine Ketones Neg (Negative) mg/dL Urine Blood Mod (Negative) Urine Nitrite Neg (Negative) Urine Bilirubin Neg (Negative) Urine Urobilinogen < 2.0 (<2.0) mg/dL Ur Leukocyte Esterase Lg (Negative) Urine WBC (Auto) 166.0 H (0.0-6.0) /HPF Urine RBC (Auto) 5.0 (0.0-6.0) /HPF Urine Bacteria (Auto) 1+ (Negative) /HPF Urine WBC Clumps 2+ /HPF Hyaline Casts 1 /LPF Urine Mucus Few /HPF Urine Yeast (Budding) 2+ /HPF - Radiology Data Radiology results: report reviewed Patient Name: DANY LOPEZ Gender: Female Date of : 1935 Referring Provider: TRINH JOHNS Organization: [facility] Accession Number: [id number] Requested Date: April 19, 2021 22:18 Report Status: Final Requested Procedure: 1 Procedure Description: XR chest 1V ap Modality: XR Findings Reporting MD: Florian Anand Dictation Time: April 19, 2021 21:49 Bleaching Machine Operator: Not available Jewel Gauger Date: CHEST 1 VIEW 04/19/2021 9:48 PM INDICATION / CLINICAL INFORMATION: lethargic altered elderly. COMPARISON: None available. FINDINGS: SUPPORT DEVICES: None. HEART / MEDIASTINUM: No significant abnormality. LUNGS / PLEURA: Mild increased interstitial prominence with interstitial opacities in bilateral lungs. Opacities. Most significant in the lower lungs. No pneumothorax. ADDITIONAL FINDINGS: No significant additional findings. IMPRESSION: 1. Increased interstitial prominence with lower lobe opacities. Signer Name: Florian Anand MD Signed: 04/19/2021 9:49 PM Workstation Name: [email or web address] Patient Name: DANY LOPEZ Gender: Female Date of : 1935 Referring Provider: TRINH JOHNS Organization: [facility] Accession Number: [id number] Requested Date: April 19, 2021 22:45 Report Status: Final Requested Procedure: 1 Procedure Description: CT head/brain wo con Modality: CT Findings Reporting MD: Florian Anand Dictation Time: April 19, 2021 21:53 Bleaching Machine Operator: Not available Jewel Gauger Date: CT HEAD WITHOUT CONTRAST INDICATION / CLINICAL INFORMATION: Altered Mental Status, elderly, Lethargic. TECHNIQUE: All CT scans at this location are performed using CT dose reduction for ALARA by means of automated exposure control. COMPARISON: 03/22/2021 FINDINGS: There is diffuse periventricular and central white matter areas of low- attenuation suggesting small vessel disease. The ventricles are slightly enlarged, unchanged since prior examination. No acute hemorrhage is seen. No midline shift. Visualized paranasal sinuses are clear. ADDITIONAL FINDINGS: None. IMPRESSION: 1. Volume loss with chronic small vessel disease no acute findings are seen. No significant change since prior exam. Signer Name: Florian Anand MD Signed: 04/19/2021 9:53 PM Workstation Name: [id number] - Medical Decision Making 1. Sepsis: UTI evident source with pyuria, chest radiograph reveals lower lobe opacities with mild hypoxia must consider COVID-19 infection as well as healthcare associated pneumonia, broad-spectrum antibiotics Zosyn vancomycin given IV in emergency department. Covid precautions initiated. 2. JIMMY: Vasomotor nephropathy in the setting of sepsis and hypovolemia noted prerenal azotemia hypovolemic hyponatremia, resuscitation initiated with 2 L normal saline according to sepsis protocol 30 mils per kg 3. Acute metabolic encephalopathy due to uremia, sepsis, electrolyte derangement, CT head negative for acute findings Additional lab abnormalities include COVID-19 markers elevated including D-dimer ferritin. Equivocal troponin value likely due to decreased renal clearance. Will need trending to rule out or rule in myocardial injury. Leukocytosis with left shift With mild elevation of D-dimer and hypoxia pulmonary embolism is a consideration. However, vital signs normalized with resuscitation to exception of persistent mild hypoxia. Observation prudent considering patient has alternative diagnosis which could account for patient's presentation. Critical Care Time: Yes Critical care time in (mins) excluding proc time.: 40 Critical care attestation.: If time is entered above; I have spent that time in minutes in the direct care of this critically ill patient, excluding procedure time. 40 minutes of critical care time excluding procedures were used in the care of the patient. After hearing EMS report, charge nurse requested respiratory therapist to be at the bedside upon patient's arrival. I came immediately to the bedside upon patient's arrival. I obtained history from EMS at the entrance of the ambulance bay. I discussed treatment plan with the nursing team members. I reviewed electronic record. Patient required multiple interventions and reassessments. ED Disposition Clinical Impression: Sepsis, UTI (urinary tract infection), Healthcare-associated pneumonia, Suspected COVID-19 virus infection, Acute kidney injury, Acute metabolic encephalopathy Disposition: ADMITTED INPATIENT Is pt being admited?: Yes Does the pt Need Aspirin: No Condition: Fair Instructions: Bacterial Pneumonia (ED) Referrals: FOREST HAQ MD [Primary Care Provider] - 3-5 Days
[2021-04-19] MEDS ORDERED: SODIUM CHLORIDE 0.9% 1000 ML IV SOLN IV ONE (22:27)
[2021-04-19] MEDS ORDERED: CEFEPIME/NS 2 GM/100 ML 2 GM/100 ML BAG IV ONE (22:27)
[2021-04-19] MEDS ORDERED: ACETAMINOPHEN 650 MG RECT SUPP PR ONE (22:28)
[2021-04-19] MEDS ORDERED: VANCOMYCIN 1,250 MG in SODIUM CHLORIDE 0.9% 250ML 250 ML IV ONE (22:30)
--- NOTE | 2021-04-19 22:53 | XRay Report ---
CHEST 1 VIEW 04/19/2021 9:48 PM INDICATION / CLINICAL INFORMATION: lethargic altered elderly. COMPARISON: None available. FINDINGS: SUPPORT DEVICES: None. HEART / MEDIASTINUM: No significant abnormality. LUNGS / PLEURA: Mild increased interstitial prominence with interstitial opacities in bilateral lungs . Opacities. Most significant in the lower lungs. No pneumothorax. ADDITIONAL FINDINGS: No significant additional findings. IMPRESSION: 1. Increased interstitial prominence with lower lobe opacities. Signer Name: Florian Anand MD Signed: 04/19/2021 10:49 PM Workstation Name: [email or web address]
--- NOTE | 2021-04-19 22:57 | Cat Scan Report ---
CT HEAD WITHOUT CONTRAST INDICATION / CLINICAL INFORMATION: Altered Mental Status, elderly, Lethargic. TECHNIQUE: All CT scans at this location are performed using CT dose reduction for ALARA by means of automated e xposure control. COMPARISON: 03/22/2021 FINDINGS: There is diffuse periventricular and central white matter areas of low-attenuation suggesting small v essel disease. The ventricles are slightly enlarged, unchanged since prior examination. No acute hemo rrhage is seen. No midline shift. Visualized paranasal sinuses are clear. ADDITIONAL FINDINGS: None. IMPRESSION: 1. Volume loss with chronic small vessel disease no acute findings are seen. No significant change si nce prior exam. Signer Name: Florian Anand MD Signed: 04/19/2021 10:53 PM Workstation Name: [email or web address]
[2021-04-19] MEDS ORDERED: VANCOMYCIN PHARMACY TO DOSE IV SCH (23:00)
[2021-04-20 00:09] LABS: Bacteria,Urine 1+ /HPF (Negative); Bilirubin,Urine NEG (Negative); Blood,Urine MOD (Negative); Color,Urine Yellow (Yellow); Hyaline Casts,Urine 1 /LPF; Mucus,Urine FEW /HPF; Urobilinogen,Urine < 2.0 mg/dL (<2.0)
[2021-04-20 00:13] LABS: Basophils % (Auto) 0.2 % (0.0-1.8); Eosinophils % (Auto) 0.2 % (0.0-4.3); Hematocrit 38.8 % (30.3-42.9); Hemoglobin 12.2 gm/dl (10.1-14.3); Lymphocytes # (Auto) 0.7 K/mm3 (1.2-5.4); Lymphocytes % (Auto) 6.3 % (13.4-35.0); Mean Corpuscular HGB Conc 31 % (30-34); Mean Corpuscular Volume 92 fl (79-97); Monocytes # (Auto) 0.4 K/mm3 (0.0-0.8); Monocytes % (Auto) 3.8 % (0.0-7.3); Platelet Count 266 K/mm3 (140-440); Red Blood Count 4.21 M/mm3 (3.65-5.03)
[2021-04-20 00:17] LABS: Albumin 3.8 g/dL (3.9-5); Calcium 9.7 mg/dL (8.4-10.2)
[2021-04-20] MEDS ORDERED: ACETAMINOPHEN 650 MG RECT SUPP PR PRN (02:16)
[2021-04-20] MEDS ORDERED: ALBUTEROL 2.5 MG/3 ML NEBU IH PRN (02:16)
[2021-04-20] MEDS ORDERED: ONDANSETRON 4 MG/2 ML INJ IV PRN (02:16)
[2021-04-20] MEDS ORDERED: DEXTROSE 50% IN WATER (25GM) 50 ML SYRINGE IV PRN (02:16)
[2021-04-20] MEDS ORDERED: HEPARIN 10,000 UNITS/10 ML VIAL IV PRN (02:29)
[2021-04-20 02:37] LABS: Chol/HDL Ratio 2.94 %
[2021-04-20 02:38] LABS: C-Reactive Protein 4.9 mg/dL (0.00-1.30)
[2021-04-20] MEDS ORDERED: cefTRIAXone/NS 1 GM/50 ML 1 GM/50 ML BAG IV SCH (03:00)
[2021-04-20] MEDS ORDERED: HEPARIN/ 0.45% NACL DRIP 25,000 UNIT/500 ML BAG IV SCH (03:00)
[2021-04-20] MEDS ORDERED: AZITHROMYCIN/NS 500 MG/250 ML 500 MG/250 ML BAG IV SCH (03:00)
--- NOTE | 2021-04-20 03:26 | History and Physical Report ---
History of Present Illness Date of examination: 04/20/21 Date of admission: 04/20/21 02:03 Chief complaint: Altered mental status History of present illness: 86-year-old -Honduran female who is a resident of [facility] nursing [facility] with history of hypertension, DM 2, gout, status post recent fall with head contusion who presents [facility] ED with complaints of altered mental status. Of note patient is lethargic, nonverbal and and on able to provide history. History is by medical reports and review of medical records. Per EMS reports, detention staff became concerned and called EMS when patient became nonverbal and mentation seemed to be altered. Review of medical record shows patient was recently admitted in March after experiencing a fall and was diagnosed with head and knee contusion. She was unable to return to personal snf and instead was sent to [facility] for rehab. Past History Past Medical History: diabetes (Type II), hypertension, other (Gout, head co ntusion, history of recent fall) Past Surgical History: No surgical history Social history: full code, other (Resident of [facility] nursing [facility]). denies: smoking, alcohol abuse, prescription drug abuse, IV drug use Family history: no significant family history Medications and Allergies Allergies Allergy/AdvReac Type Severity Reaction Status Date / Time No Known Allergies Allergy Verified 03/15/21 10:30 Home Medications Medication Instructions Recorded Confirmed Last Taken Type Ferrous Sulfate [Iron 325 MG] 325 mg PO DAILY 03/17/21 03/17/21 Unknown History Lovastatin [Altoprev] 40 mg PO DAILY 03/17/21 03/17/21 Unknown History Meloxicam [Mobic] 7.5 mg DAILY 03/17/21 03/17/21 Unknown History Omeprazole 20 mg PO DAILY 03/17/21 03/17/21 Unknown History Sennosides [Senna] 40 mg PO DAILY 03/17/21 03/17/21 Unknown History Sitagliptin Phos/Metformin HCl tab DAILY 03/17/21 Unknown History [Janumet XR 50-1,000 mg] allopurinoL [Zyloprim] 300 mg PO QDAY 03/17/21 03/17/21 Unknown History amLODIPine 10 mg PO DAILY 03/17/21 03/17/21 Unknown History levETIRAcetam [Keppra TAB] 500 mg PO BID 03/17/21 03/17/21 Unknown History Aspirin [Adult Aspirin] 81 mg PO DAILY #30 tablet. 03/22/21 Unknown Rx Famotidine [Pepcid] 20 mg PO BID #60 tablet 03/22/21 Unknown Rx Linagliptin [Tradjenta] 5 mg PO QAMDIAB #30 tablet 03/22/21 Unknown Rx metFORMIN XR [Glucophage XR] 1,000 mg PO QDDIAB #60 tablet 03/22/21 Unknown Rx traMADoL [Ultram 50 MG tab] 225 mg PO Q6HR #20 03/22/21 Unknown Rx Active Meds: Active Medications Acetaminophen (Acetaminophen 650 Mg Rect Supp) 650 mg PA Q4H PRN PRN Reason: Pain MILD(1-3)/Fever >100.5/FERRARI Albuterol (Albuterol 2.5 Mg/3 Ml Nebu) 2.5 mg IH Q3HRT PRN PRN Reason: Shortness Of Breath Dexamethasone (Dexamethasone 4 Mg/Ml Vial) 6 mg IV Q24HR CONNIE Dextrose (Dextrose 50% In Water (25gm) 50 Ml Syringe) 50 ml IV Q30MIN PRN; Prot ocol PRN Reason: Hypoglycemia Heparin Sodium (Porcine) (Heparin 10,000 Units/10 Ml Vial) 2,500 unit 40 unit/kg (2500 unit) IV Q6H PRN PRN Reason: Anti-Xa Assay < 0.1 units/ml Azithromycin (Zithromax/Ns) 500 mg in 250 mls @ 250 mls/hr IV Q24H CONNIE Ceftriaxone Sodium (Rocephin/Ns 1 Gm/50 Ml) 1 gm in 50 mls @ 100 mls/hr IV Q24H CONNIE; Protocol Dextrose (D5w) 1,000 mls @ 100 mls/hr IV DIRECT CONNIE Heparin Sodium/Sodium Chloride (Heparin/ 0.45% Nacl-25,000 Unit/500 Ml) 25,000 unit in 500 mls @ 18 mls/hr IV TITR CONNIE; Protocol Insulin Human Lispro (Insulin Lispro 100 Unit/Ml) 0 unit SUB-Q Q6HR CONNIE; Protocol Ondansetron HCl (Ondansetron 4 Mg/2 Ml Inj) 4 mg IV Q6H PRN PRN Reason: Nausea And Vomiting Pantoprazole Sodium (Pantoprazole 40 Mg Inj) 40 mg IV QDAY CONNIE Sodium Chloride (Sodium Chloride 0.9% 10 Ml Flush Syringe) 10 ml IV BID CONNIE Sodium Chloride (Sodium Chloride 0.9% 10 Ml Flush Syringe) 10 ml IV PRN PRN PRN Reason: LINE FLUSH Review of Systems ROS unobtainable: due to mental status Exam - Physical Exam Narrative exam: Physical exam General appearance: Present: Thin chronically ill-appearing, lethargic, older adult, -Honduran female - EENT Eyes: Present: PERRL ENT: Missing teeth - Neck Neck: Present: supple, normal ROM - Respiratory Respiratory effort: Non-labored Respiratory: Clear throughout - Cardiovascular Heart rate: 104 (bpm) Rhythm: Sinus tachycardia Heart Sounds: Present: S1 & S2. Absent: rub, click - Extremities Extremities: no ischemia, pulses intact, - Peripheral Assessment Peripheral Pulses: within normal limits - Abdominal General gastrointestinal: soft, non-tender, normal bowel sounds - Integumentary Integumentary: Present: warm, dry - Musculoskeletal Musculoskeletal: Generalized weakness, withdraws to pain -Neurological Neurological: CN II-XII intact - Psychiatric Psychiatric: Lethargic, unable to assess orientation - Constitutional Vitals: Temp Pulse Resp BP Pulse Ox 99.4 F 97 H 19 119/65 93 04/20/21 01:00 04/20/21 01:30 04/20/21 01:30 04/20/21 01:30 04/20/21 01:30 HEART Score - HEART Score Troponin: Troponin T 0.044 ng/mL (0.00-0.029) H 04/19/21 23:33 Results - Labs CBC & Chem 7: 04/19/21 23:33 04/19/21 23:33 Labs: Laboratory Last Values WBC 11.8 K/mm3 (4.5-11.0) H 04/19/21 23:33 RBC 4.21 M/mm3 (3.65-5.03) 04/19/21 23:33 Hgb 12.2 gm/dl (10.1-14.3) 04/19/21 23:33 Hct 38.8 % (30.3-42.9) 04/19/21 23:33 MCV 92 fl (79-97) 04/19/21 23:33 MCH 29 pg (28-32) 04/19/21 23:33 MCHC 31 % (30-34) 04/19/21 23:33 RDW 18.0 % (13.2-15.2) H 04/19/21 23:33 Plt Count 266 K/mm3 (140-440) 04/19/21 23:33 Lymph % (Auto) 6.3 % (13.4-35.0) L 04/19/21 23:33 [place] % (Auto) 3.8 % (0.0-7.3) 04/19/21 23:33 Eos % (Auto) 0.2 % (0.0-4.3) 04/19/21 23:33 Baso % (Auto) 0.2 % (0.0-1.8) 04/19/21 23:33 Lymph # (Auto) 0.7 K/mm3 (1.2-5.4) L 04/19/21 23:33 [place] # (Auto) 0.4 K/mm3 (0.0-0.8) 04/19/21 23: Eos # (Auto) 0.0 K/mm3 (0.0-0.4) 04/19/21 23: Baso # (Auto) 0.0 K/mm3 (0.0-0.1) 04/19/21 23:33 Seg Neutrophils % 89.5 % (40.0-70.0) H 04/19/21 23:33 Seg Neutrophils # 10.6 K/mm3 (1.8-7.7) H 04/19/21 23:33 D-Dimer 1413.64 ng/mlDDU (0-234) H 04/19/21 23:33 Sodium 163 mmol/L (137-145) H* 04/19/21 23:33 Sodium Cancelled 04/19/21 23:33 Potassium 5.0 mmol/L (3.6-5.0) 04/19/21 23:33 Potassium Cancelled 04/19/21 23:33 Chloride 128.2 mmol/L (98-107) H 04/19/21 23:33 Chloride Cancelled 04/19/21 23:33 Carbon Dioxide 17 mmol/L (22-30) L 04/19/21 23:33 Carbon Dioxide Cancelled 04/19/21 23:33 Anion Gap 23 mmol/L 04/19/21 23:33 Anion Gap Cancelled 04/19/21 23:33 BUN 158 mg/dL (7-17) H 04/19/21 23:33 BUN Cancelled 04/19/21 23:33 Creatinine 6.1 mg/dL (0.6-1.2) H 04/19/21 23:33 Creatinine Cancelled 04/19/21 23:33 Estimated GFR 8 ml/min 04/19/21 23:33 Estimated GFR Cancelled 04/19/21 23:33 BUN/Creatinine Ratio 26 % 04/19/21 23:33 BUN/Creatinine Ratio Cancelled 04/19/21 23:33 Glucose 155 mg/dL (65-100) H 04/19/21 23:33 Glucose Cancelled 04/19/21 23:33 Lactic Acid 2.40 mmol/L (0.7-2.0) H* 04/19/21 23:33 Calcium 9.7 mg/dL (8.4-10.2) 04/19/21 23:33 Calcium Cancelled 04/19/21 23:33 Ferritin 662.6 ng/mL (10.0-200.0) H 04/19/21 23:33 Total Bilirubin 0.50 mg/dL (0.1-1.2) 04/19/21 23:33 Total Bilirubin Cancelled 04/19/21 23:33 AST 11 units/L (5-40) 04/19/21 23:33 AST Cancelled 04/19/21 23:33 ALT 20 units/L (7-56) 04/19/21 23:33 ALT Cancelled 04/19/21 23:33 Alkaline Phosphatase 75 units/L (35-129) 04/19/21 23:33 Alkaline Phosphatase Cancelled 04/19/21 23:33 Lactate Dehydrogenase 158 units/L (91-180) 04/19/21 23:33 Troponin T 0.044 ng/mL (0.00-0.029) H 04/19/21 23:33 C-Reactive Protein 4.90 mg/dL (0.00-1.30) H 04/19/21 23:33 Total Protein 6.7 g/dL (6.3-8.2) 04/19/21 23:33 Total Protein Cancelled 04/19/21 23:33 Albumin 3.8 g/dL (3.9-5) L 04/19/21 23:33 Albumin Cancelled 04/19/21 23:33 Albumin/Globulin Ratio 1.3 % 04/19/21 23:33 Albumin/Globulin Ratio Cancelled 04/19/21 23:33 Triglycerides 245 mg/dL (2-149) H 04/19/21 23:33 Cholesterol 106 mg/dL (50-199) 04/19/21 23:33 LDL Cholesterol Direct 33 mg/dL (50-130) L 04/19/21 23:33 HDL Cholesterol 36 mg/dL (40-59) L 04/19/21 23:33 Cholesterol/HDL Ratio 2.94 % 04/19/21 23:33 Urine Color Yellow (Yellow) 04/19/21 23:35 Urine Turbidity Cloudy (Clear) 04/19/21 23:35 Urine pH 5.0 (5.0-7.0) 04/19/21 23:35 Ur Specific [place] 1.016 (1.003-1.030) 04/19/21 23:35 Urine Protein 30 mg/dl mg/dL (Negative) 04/19/21 23:35 Urine Glucose (UA) Neg mg/dL (Negative) 04/19/21 23:35 Urine Ketones Neg mg/dL (Negative) 04/19/21 23:35 Urine Blood Mod (Negative) 04/19/21 23:35 Urine Nitrite Neg (Negative) 04/19/21 23:35 Urine Bilirubin Neg (Negative) 04/19/21 23:35 Urine Urobilinogen < 2.0 mg/dL (<2.0) 04/19/21 23:35 Ur Leukocyte Esterase Lg (Negative) 04/19/21 23:35 Urine WBC (Auto) 166.0 /HPF (0.0-6.0) H 04/19/21 23:35 Urine RBC (Auto) 5.0 /HPF (0.0-6.0) 04/19/21 23:35 Urine Bacteria (Auto) 1+ /HPF (Negative) 04/19/21 23:35 Urine WBC Clumps 2+ /HPF 04/19/21 23:35 Hyaline Casts 1 /LPF 04/19/21 23:35 Urine Mucus Few /HPF 04/19/21 23:35 Urine Yeast (Budding) 2+ /HPF 04/19/21 23:35 Microbiology: Microbiology 04/19/21 23:19 Peripheral/Venous Blood Culture - Preliminary Culture in Progress 04/19/21 23:33 Peripheral/Venous Blood Culture - Preliminary Culture in Progress - Imaging and Cardiology CT scan - chest: pending Venous US: pending Imaging and Cardiology: CXR: FINDINGS: SUPPORT DEVICES: None. HEART / MEDIASTINUM: No significant abnormality. LUNGS / PLEURA: Mild increased interstitial prominence with interstitial opacities in bilateral lungs. Opacities. Most significant in the lower lungs. No pneumothorax. ADDITIONAL FINDINGS: No significant additional findings. IMPRESSION: 1. Increased interstitial prominence with lower lobe opacities. CT Head: FINDINGS: There is diffuse periventricular and central white matter areas of low-attenuation suggesting small vessel disease. The ventricles are slightly enlarged, unchanged since prior examination. No acute hemorrhage is seen. No midline shift. Visualized paranasal sinuses are clear. ADDITIONAL FINDINGS: No ne. IMPRESSION: 1. Volume loss with chronic small vessel disease no acute findings are seen. No significant change since prior exam. Assessment and Plan Assessment and plan: Suspected COVID-19 virus infection -PCR pending -Covid inflammatory labs elevated -Started on Decadron -ID consult pending Sepsis -Source of infection includes pneumonia and UTI -Leukocytosis 11.8 -Tachycardia 104 -AMS -Lactic acid 2.4 -Start IVF and IV abx -Cultures pending Urinary tract infection -UA positive for UTI -urine wbc -Urine culture pending -on IV Abx Hypernatremia -Severe at 163 -Likely secondary to dehydration, poor oral intake -Neurochecks -Sodium checks -On D5W JIMMY -BUN/Cr on admission 158/6.1 (baseline 18/1.0 on 03/22/2021) -Hydrate with IVF -Monitor intake and output -Avoid nephrotoxic agents -Renal dose all meds -Monitor renal function -Nephrology consulted Pneumonia -CXR shows Increased interstitial prominence with lower lobe opacities -Blood Cultures pending -Start on IV Abx -Likely secondary to Covid Acute metabolic encephalopathy -CT head negative acute abnormalities -Blood and urine cultures pending -Neuro checks -N.p.o. for now, will need swallow screen prior to initiating diet orders Elevated D-dimer -At 1413 -Patient unable to get CT angio due to renal function -noncontrast CT chest, bilateral lower extremity Doppler, and VQ scan pending -Started on heparin drip, will discontinue if negative for PE Acute hypoxic respiratory failure -No Baseline home oxygen requirements -Saturation of 86% on room air -Currently on 4L supplemental oxygen with saturation of 97% -Monitor saturations -Continue supplemental oxygen wean as tolerated Elevated troponin -X1, will continue to trend -EKG unrevealing for acute ischemic abnormalities -?? Related to renal insufficiency DM -POC BG monitoring -SSI coverage prn History of hypertension -Presently normotensive/borderline hypotensive -We will hold antihypertensive meds for now, resume when appropriate History of recent fall with head contusion -Will need PT/OT eval and treat when more alert -Initiate fall precautions DVT PPX -on Heparin gtt Advance Directives: No VTE prophylaxis?: Chemical, Mechanical
[2021-04-20] MEDS: DEXTROSE 5% IN WATER 1,000 ML IV SCH (03:53)
--- NOTE | 2021-04-20 03:53 | Cat Scan Report ---
CT CHEST WITHOUT CONTRAST INDICATION / CLINICAL INFORMATION: Elevated D-dimer, unable to order contrast due to JIMMY. TECHNIQUE: Axial CT images were obtained through the chest without contrast. All CT scans at this location are p erformed using CT dose reduction for ALARA by means of automated exposure control. COMPARISON: None available. FINDINGS: There are bilateral pulmonary parenchymal opacities some air bronchograms and densities most signific ant in the mid and lower lungs. Small calcified granuloma left lower lung. Atherosclerotic changes in the aorta. Mildly prominent mediastinal nodes. Coronary artery disease is noted. No pericardial effu vu is seen. Gallbladder is distended. Constipation seen throughout the colon UPPER ABDOMEN: No significant abnormality. SKELETAL SYSTEM: No significant abnormality. IMPRESSION: 1. Diffuse bilateral pulmonary opacities/infiltrates 2. Coronary artery disease with atherosclerotic change throughout the aorta 3. 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 There is some atele ctasis and densities in left lower lung which overlying the spleen. Signer Name: Florian Anand MD Signed: 04/20/2021 3:49 AM Workstation Name: [id number]
[2021-04-20] MEDS ORDERED: HEPARIN 10,000 UNITS/10 ML VIAL IV ONE (04:01)
[2021-04-20 04:05] LABS: Hematocrit 39.1 % (30.3-42.9); Hemoglobin 12.3 gm/dl (10.1-14.3)
[2021-04-20 04:16] LABS: INR 1.28 (0.87-1.13); Partial Thromboplastin Time 26.2 Sec. (24.2-36.6)
[2021-04-20] MEDS: INSULIN LISPRO 100 UNIT/ML SUB-Q SCH ×3 (06:23→18:15)
--- NOTE | 2021-04-20 07:17 | Consultation ---
History of Present Illness - Reason for Consult Consult date: 04/20/21 acute renal failure Requesting physician: DIMITRI URIAS - History of Present Illness 86-year-old lady brought from [facility] on account of lethargy and decreased level of consciousness. Patient was recently at this institution last month following fall with head contusion. On presentation, she was nonverbal. Blood pressure was as low as 93/51 mmHg and patient was tachycardic with heart rate of 115/min. Blood sugar was 138 mg/dL. BUN/creatinine elevated at 158/6.1 mg/dL with sodium high at 1 6 3 mmol/L and bicarbonate low as 70 mmol/L. Of note on March 22, BUN/creatinine were 18/1.0 mg/dL.I am consulted to assist with managing renal failure and electrode abnormalities. Patient was on meloxicam and allopurinol at the senior living. She is also on Keppra 500 mg twice a day. Urinalysis showed protein 30 mg/dL, moderate blood with pyuria, bacteriuria and funguria. Past History Past Medical History: diabetes (Type II), GERD, hypertension, stroke, other (Gout, head contusion, history of recent fall) Past Surgical History: No surgical history Social history: full code, other (Resident of [facility]). denies: smoking, alcohol abuse, prescription drug abuse, IV drug use Family history: no significant family history Medications and Allergies Allergies Allergy/AdvReac Type Severity Reaction Status Date / Time No Known Allergies Allergy Verified 03/15/21 10:30 Home Medications Medication Instructions Recorded Confirmed Last Taken Type Ferrous Sulfate [Iron 325 MG] 325 mg PO DAILY 03/17/21 03/17/21 Unknown History Lovastatin [Altoprev] 40 mg PO DAILY 03/17/21 03/17/21 Unknown History Meloxicam [Mobic] 7.5 mg DAILY 03/17/21 03/17/21 Unknown History Omeprazole 20 mg PO DAILY 03/17/21 03/17/21 Unknown History Sennosides [Senna] 40 mg PO DAILY 03/17/21 03/17/21 Unknown History Sitagliptin Phos/Metformin HCl tab DAILY 03/17/21 Unknown History [Janumet XR 50-1,000 mg] allopurinoL [Zyloprim] 300 mg PO QDAY 03/17/21 03/17/21 Unknown History amLODIPine 10 mg PO DAILY 03/17/21 03/17/21 Unknown History levETIRAcetam [Keppra TAB] 500 mg PO BID 03/17/21 03/17/21 Unknown History Aspirin [Adult Aspirin] 81 mg PO DAILY #30 tablet. 03/22/21 Unknown Rx Famotidine [Pepcid] 20 mg PO BID #60 tablet 03/22/21 Unknown Rx Linagliptin [Tradjenta] 5 mg PO QAMDIAB #30 tablet 03/22/21 Unknown Rx metFORMIN XR [Glucophage XR] 1,000 mg PO QDDIAB #60 tablet 03/22/21 Unknown Rx traMADoL [Ultram 50 MG tab] 225 mg PO Q6HR #20 03/22/21 Unknown Rx Active Meds: Active Medications Acetaminophen (Acetaminophen 650 Mg Rect Supp) 650 mg VT Q4H PRN PRN Reason: Pain MILD(1-3)/Fever >100.5/FERRARI Albuterol (Albuterol 2.5 Mg/3 Ml Nebu) 2.5 mg IH Q3HRT PRN PRN Reason: Shortness Of Breath Dexamethasone (Dexamethasone 4 Mg/Ml Vial) 6 mg IV Q24HR CONNIE Dextrose (Dextrose 50% In Water (25gm) 50 Ml Syringe) 50 ml IV Q30MIN PRN; Protocol PRN Reason: Hypoglycemia Heparin Sodium (Porcine) (Heparin 10,000 Units/10 Ml Vial) 2,500 unit 40 unit/kg (2500 unit) IV Q6H PRN PRN Reason: Anti-Xa Assay < 0.1 units/ml Azithromycin (Zithromax/Ns) 500 mg in 250 mls @ 250 mls/hr IV Q24H CONNIE Last Admin: 04/20/21 03:52 Dose: 250 mls/hr Documented by: Ceftriaxone Sodium (Rocephin/Ns 1 Gm/50 Ml) 1 gm in 50 mls @ 100 mls/hr IV Q24H CONNIE; Protocol Last Admin: 04/20/21 03:30 Dose: 100 mls/hr Documented by: Dextrose (D5w) 1,000 mls @ 100 mls/hr IV DIRECT CONNIE Last Admin: 04/20/21 03:53 Dose: 100 mls/hr Documented by: Heparin Sodium/Sodium Chloride (Heparin/ 0.45% Nacl-25,000 Unit/500 Ml) 25,000 unit in 500 mls @ 18 mls/hr IV TITR CONNIE; Protocol Last Admin: 04/20/21 04:11 Dose: 900 units/hr, 18 mls/hr Documented by: Insulin Human Lispro (Insulin Lispro 100 Unit/Ml) 0 unit SUB-Q Q6HR CONNIE; Protocol Last Admin: 04/20/21 06:23 Dose: Not Given Documented by: Ondansetron HCl (Ondansetron 4 Mg/2 Ml Inj) 4 mg IV Q6H PRN PRN Reason: Nausea And Vomiting Pantoprazole Sodium (Pantoprazole 40 Mg Inj) 40 mg IV QDAY CONNIE Sodium Chloride (Sodium Chloride 0.9% 10 Ml Flush Syringe) 10 ml IV BID CONNIE Sodium Chloride (Sodium Chloride 0.9% 10 Ml Flush Syringe) 10 ml IV PRN PRN PRN Reason: LINE FLUSH Review of Systems ROS unobtainable: due to mental status Exam - Vital Signs Vital signs: Vital Signs Temp Pulse Resp BP Pulse Ox 101.1 F H 121 H 24 126/73 93 04/19/21 22:27 04/19/21 22:27 04/19/21 22:27 04/19/21 22:27 04/19/21 22:27 - Physical Exam Narrative exam: Bedside examination was not done today due to PPE preservation during Covid 19 pandemic. Results - Lab Results 04/20/21 03:34 04/20/21 11:15 Most recent lab results Calcium 9.7 mg/dL (8.4-10.2) 04/19/21 23:33 Calcium Cancelled 04/19/21 23:33 Assessment and Plan - Patient Problems (1) Acute kidney failure Current Visit: Yes Status: Acute Plan to address problem: Prerenal azotemia versus acute tubular necrosis secondary to hypotension/sepsis. Patient may also have Superimposed drug induced nephropathy Meloxicam and or a llopurinol. Urinalysis shows hematuria, pyuria and mild to moderate proteinuria. We will get urine studies -Get urine eosinophils. Quantify proteinuria. Check fractional excretion of sodium. Continue volume repletion. Follow-up electrolytes and renal function. (2) Hypernatremia Current Visit: Yes Status: Acute Plan to address problem: Free water replacement parenterally by giving hypotonic fluids. Follow-up sodium (3) Metabolic acidosis Current Visit: Yes Status: Acute Plan to address problem: Uremic and possible lactic acidosis. (4) Sepsis due to urinary tract infection Current Visit: Yes Status: Acute Plan to address problem: Follow-up cultures. Continue empiric antibiotics appropriately dosed to the degree of renal function (5) Hypotension Current Visit: Yes Status: Acute Plan to address problem: Improved with volume repletion. Follow blood pressure (6) Type 2 diabetes mellitus Current Visit: Yes Status: Acute Plan to address problem: Blood sugar management by primary attending. (7) Hypertension Current Visit: Yes Status: Acute Plan to address problem: Blood pressure was low on presentation. Follow-up blood pressure (8) Acute metabolic encephalopathy Current Visit: Yes Status: Acute Plan to address problem: Toxic versus metabolic encephalopathy. Patient was on Keppra and with was in renal function dose was now high and may have contributed to decreased mental status. Metabolic encephalopathy syndrome secondary to uremia and hypernatremia. Follow-up mental status with correction of abnormalities (9) Suspected COVID-19 virus infection Current Visit: Yes Status: Acute Plan to address problem: Follow-up SARS coronavirus 2 PCR
--- NOTE | 2021-04-20 07:54 | Nuclear Medicine Report ---
NUCLEAR MEDICINE PERFUSION LUNG SCAN INDICATION / CLINICAL INFORMATION: elevated d-dimer. TECHNIQUE: 5.5 mCi of Tc-99m MAA were given by IV. COMPARISON: Chest CT dated 04/20/2021. FINDINGS: PERFUSION: No significant perfusion defects. ADDITIONAL FINDINGS: None. IMPRESSION: 1. Low probability for pulmonary embolism. Signer Name: Mandeep Andrews DO Signed: 04/20/2021 7:50 AM Workstation Name: [id number]
[2021-04-20 09:22] LABS: Calcium 10.3 mg/dL (8.4-10.2)
[2021-04-20] MEDS ORDERED: dexAMETHasone 4 MG/ML VIAL IV SCH (10:00)
--- NOTE | 2021-04-20 10:49 | Consultation ---
History of Present Illness - Reason for Consult Consult date: 04/20/21 R/o covid - History of Present Illness 86-year-old female with history of hypertension, diabetes mellitus, gout, recent falls with head contusion, resident of a assisted facility, admitted on 04/19/2021 secondary to altered mental status/lethargy. History is limited. On arrival, temperature 101.1, HR 121, RR 24, O2 sat 93%, BP 126/73. Initial WBC 4.8. Platelets 266. D-dimer 1413. CRP 4.9. Lactate 2.4. Sodium 163. Creatinine 6.1. Urinalysis with 166 WBCs, large leukocyte esterase. Chest x- ray with increased interstitial prominence. CT of the chest shows left lower lobe density with eventration of the left hemidiaphragm underlying the spleen. VQ scan low probability for PE. Review of Systems: reviewed ED and H&P notes. Review of system deferred to minimize COVID-19 transmission. Past History Past Medical History: diabetes (Type II), hypertension, other (Gout, head contusion, history of recent fall) Past Surgical History: No surgical history Social history: full code, other (Resident of [facility]). denies: smoking, alcohol abuse, prescription drug abuse, IV drug use Family history: no significant family history Medications and Allergies Allergies Allergy/AdvReac Type Severity Reaction Status Date / Time No Known Allergies Allergy Verified 03/15/21 10:30 Home Medications Medication Instructions Recorded Confirmed Last Taken Type Ferrous Sulfate [Iron 325 MG] 325 mg PO DAILY 03/17/21 03/17/21 Unknown History Lovastatin [Altoprev] 40 mg PO DAILY 03/17/21 03/17/21 Unknown History Meloxicam [Mobic] 7.5 mg DAILY 03/17/21 03/17/21 Unknown History Omeprazole 20 mg PO DAILY 03/17/21 03/17/21 Unknown History Sennosides [Senna] 40 mg PO DAILY 03/17/21 03/17/21 Unknown History Sitagliptin Phos/Metformin HCl tab DAILY 03/17/21 Unknown History [Janumet XR 50-1,000 mg] allopurinoL [Zyloprim] 300 mg PO QDAY 03/17/21 03/17/21 Unknown History amLODIPine 10 mg PO DAILY 03/17/21 03/17/21 Unknown History levETIRAcetam [Keppra TAB] 500 mg PO BID 03/17/21 03/17/21 Unknown History Aspirin [Adult Aspirin] 81 mg PO DAILY #30 tablet. 03/22/21 Unknown Rx Famotidine [Pepcid] 20 mg PO BID #60 tablet 03/22/21 Unknown Rx Linagliptin [Tradjenta] 5 mg PO QAMDIAB #30 tablet 03/22/21 Unknown Rx metFORMIN XR [Glucophage XR] 1,000 mg PO QDDIAB #60 tablet 03/22/21 Unknown Rx traMADoL [Ultram 50 MG tab] 225 mg PO Q6HR #20 03/22/21 Unknown Rx Active Meds: Active Medications Acetaminophen (Acetaminophen 650 Mg Rect Supp) 650 mg [place] Q4H PRN PRN Reason: Pain MILD(1-3)/Fever >100.5/FERRARI Albuterol (Albuterol 2.5 Mg/3 Ml Nebu) 2.5 mg IH Q3HRT PRN PRN Reason: Shortness Of Breath Dexamethasone (Dexamethasone 4 Mg/Ml Vial) 6 mg IV Q24HR CONNIE Stop: 04/29/21 10:01 Dextrose (Dextrose 50% In Water (25gm) 50 Ml Syringe) 50 ml IV Q30MIN PRN; Protocol PRN Reason: Hypoglycemia Heparin Sodium (Porcine) (Heparin 10,000 Units/10 Ml Vial) 2,500 unit 40 unit/kg (2500 unit) IV Q6H PRN PRN Reason: Anti-Xa Assay < 0.1 units/ml Azithromycin (Zithromax/Ns) 500 mg in 250 mls @ 250 mls/hr IV Q24H CONNIE Stop: 04/24/21 03:59 Last Admin: 04/20/21 03:52 Dose: 250 mls/hr Documented by: Ceftriaxone Sodium (Rocephin/Ns 1 Gm/50 Ml) 1 gm in 50 mls @ 100 mls/hr IV Q24H CONNIE; Protocol Stop: 04/24/21 03:29 Last Admin: 04/20/21 03:30 Dose: 100 mls/hr Documented by: Dextrose (D5w) 1,000 mls @ 100 mls/hr IV DIRECT CONNIE Last Admin: 04/20/21 03:53 Dose: 100 mls/hr Documented by: Heparin Sodium/Sodium Chloride (Heparin/ 0.45% Nacl-25,000 Unit/500 Ml) 25,000 unit in 500 mls @ 18 mls/hr IV TITR CONNIE; Protocol Last Admin: 04/20/21 04:11 Dose: 900 units/hr, 18 mls/hr Documented by: Insulin Human Lispro (Insulin Lispro 100 Unit/Ml) 0 unit SUB-Q Q6HR CONNIE; Protocol Last Admin: 04/20/21 06:23 Dose: Not Given Documented by: Ondansetron HCl (Ondansetron 4 Mg/2 Ml Inj) 4 mg IV Q6H PRN PRN Reason: Nausea And Vomiting Pantoprazole Sodium (Pantoprazole 40 Mg Inj) 40 mg IV QDAY CONNIE Sodium Chloride (Sodium Chloride 0.9% 10 Ml Flush Syringe) 10 ml IV BID CONNIE Sodium Chloride (Sodium Chloride 0.9% 10 Ml Flush Syringe) 10 ml IV PRN PRN PRN Reason: LINE FLUSH Physical Examination - Physical Exam Narrative exam: Physical exam deferred to minimize COVID-19 transmission during pandemic. - Constitutional Vitals: Vital Signs Temp Pulse Resp BP Pulse Ox 99.4 F 84 14 118/64 94 04/20/21 01:00 04/20/21 08:00 04/20/21 08:00 04/20/21 08:00 04/20/21 08:00 Temperature -Last 24 Hours Temperature 99.4 F Temperature 101.1 F Temperature 101.1 F Temperature 101.1 F Results - Labs CBC & Chem 7: 04/20/21 03:34 04/20/21 08:26 Labs: Abnormal lab results 04/19/21 04/19/21 04/19/21 Range/Units 23:33 23:33 23:33 WBC 11.8 H (4.5-11.0) K/mm3 RDW 18.0 H (13.2-15.2) % Lymph % (Auto) 6.3 L (13.4-35.0) % Lymph # (Auto) 0.7 L (1.2-5.4) K/mm3 Seg Neutrophils % 89.5 H (40.0-70.0) % Seg Neutrophils # 10.6 H (1.8-7.7) K/mm3 PT (12.2-14.9) Sec. INR (0.87-1.13) D-Dimer (0-234) ng/mlDDU Heparin Anti-Xa Level (0.3-0.7) U.I./ml Sodium (137-145) mmol/L Chloride (98-107) mmol/L Carbon Dioxide (22-30) mmol/L BUN (7-17) mg/dL Creatinine (0.6-1.2) mg/dL Glucose (65-100) mg/dL POC Glucose (70-105) mg/dL Lactic Acid 2.40 H* (0.7-2.0) mmol/L Calcium (8.4-10.2) mg/dL Phosphorus (2.5-4.5) mg/dL Ferritin (10.0-200.0) ng/mL Troponin T 0.044 H (0.00-0.029) ng/mL C-Reactive Protein (0.00-1.30) mg/dL Albumin (3.9-5) g/dL Triglycerides 245 H (2-149) mg/dL LDL Cholesterol Direct 33 L (50-130) mg/dL HDL Cholesterol 36 L (40-59) mg/dL Urine WBC (Auto) (0.0-6.0) /HPF 04/19/21 04/19/21 04/19/21 Range/Units 23:33 23:33 23:33 WBC (4.5-11.0) K/mm3 RDW (13.2-15.2) % Lymph % (Auto) (13.4-35.0) % Lymph # (Auto) (1.2-5.4) K/mm3 Seg Neutrophils % (40.0-70.0) % Seg Neutrophils # (1.8-7.7) K/mm3 PT (12.2-14.9) Sec. INR (0.87-1.13) D-Dimer 1413.64 H (0-234) ng/mlDDU Heparin Anti-Xa Level (0.3-0.7) U.I./ml Sodium 163 H* (137-145) mmol/L Chloride 128.2 H (98-107) mmol/L Carbon Dioxide 17 L (22-30) mmol/L BUN 158 H (7-17) mg/dL Creatinine 6.1 H (0.6-1.2) mg/dL Glucose 155 H (65-100) mg/dL POC Glucose (70-105) mg/dL Lactic Acid (0.7-2.0) mmol/L Calcium (8.4-10.2) mg/dL Phosphorus (2.5-4.5) mg/dL Ferritin 662.6 H (10.0-200.0) ng/mL Troponin T (0.00-0.029) ng/mL C-Reactive Protein 4.90 H (0.00-1.30) mg/dL Albumin 3.8 L (3.9-5) g/dL Triglycerides (2-149) mg/dL LDL Cholesterol Direct (50-130) mg/dL HDL Cholesterol (40-59) mg/dL Urine WBC (Auto) (0.0-6.0) /HPF 04/19/21 04/20/21 04/20/21 Range/Units 23:35 03:34 03:34 WBC (4.5-11.0) K/mm3 RDW (13.2-15.2) % Lymph % (Auto) (13.4-35.0) % Lymph # (Auto) (1.2-5.4) K/mm3 Seg Neutrophils % (40.0-70.0) % Seg Neutrophils # (1.8-7.7) K/mm3 PT 16.5 H (12.2-14.9) Sec. INR 1.28 H (0.87-1.13) D-Dimer (0-234) ng/mlDDU Heparin Anti-Xa Level (0.3-0.7) U.I./ml Sodium (137-145) mmol/L Chloride (98-107) mmol/L Carbon Dioxide (22-30) mmol/L BUN (7-17) mg/dL Creatinine (0.6-1.2) mg/dL Glucose (65-100) mg/dL POC Glucose (70-105) mg/dL Lactic Acid 2.10 H* (0.7-2.0) mmol/L Calcium (8.4-10.2) mg/dL Phosphorus (2.5-4.5) mg/dL Ferritin (10.0-200.0) ng/mL Troponin T (0.00-0.029) ng/mL C-Reactive Protein (0.00-1.30) mg/dL Albumin (3.9-5) g/dL Triglycerides (2-149) mg/dL LDL Cholesterol Direct (50-130) mg/dL HDL Cholesterol (40-59) mg/dL Urine WBC (Auto) 166.0 H (0.0-6.0) /HPF 04/20/21 04/20/21 04/20/21 Range/Units 05:10 06:22 08:26 WBC (4.5-11.0) K/mm3 RDW (13.2-15.2) % Lymph % (Auto) (13.4-35.0) % Lymph # (Auto) (1.2-5.4) K/mm3 Seg Neutrophils % (40.0-70.0) % Seg Neutrophils # (1.8-7.7) K/mm3 PT (12.2-14.9) Sec. INR (0.87-1.13) D-Dimer (0-234) ng/mlDDU Heparin Anti-Xa Level (0.3-0.7) U.I./ml Sodium 164 H* (137-145) mmol/L Chloride (98-107) mmol/L Carbon Dioxide (22-30) mmol/L BUN (7-17) mg/dL Creatinine (0.6-1.2) mg/dL Glucose (65-100) mg/dL POC Glucose 178 H (70-105) mg/dL Lactic Acid (0.7-2.0) mmol/L Calcium (8.4-10.2) mg/dL Phosphorus (2.5-4.5) mg/dL Ferritin (10.0-200.0) ng/mL Troponin T 0.031 H D 0.031 H (0.00-0.029) ng/mL C-Reactive Protein (0.00-1.30) mg/dL Albumin (3.9-5) g/dL Triglycerides (2-149) mg/dL LDL Cholesterol Direct (50-130) mg/dL HDL Cholesterol (40-59) mg/dL Urine WBC (Auto) (0.0-6.0) /HPF 04/20/21 04/20/21 04/20/21 Range/Units 08:26 08:26 08:26 WBC (4.5-11.0) K/mm3 RDW (13.2-15.2) % Lymph % (Auto) (13.4-35.0) % Lymph # (Auto) (1.2-5.4) K/mm3 Seg Neutrophils % (40.0-70.0) % Seg Neutrophils # (1.8-7.7) K/mm3 PT (12.2-14.9) Sec. INR (0.87-1.13) D-Dimer (0-234) ng/mlDDU Heparin Anti-Xa Level 0.85 H (0.3-0.7) U.I./ml Sodium 162 H* (137-145) mmol/L Chloride 131.7 H (98-107) mmol/L Carbon Dioxide 17 L (22-30) mmol/L BUN 140 H (7-17) mg/dL Creatinine 4.2 H (0.6-1.2) mg/dL Glucose 195 H (65-100) mg/dL POC Glucose (70-105) mg/dL Lactic Acid (0.7-2.0) mmol/L Calcium 10.3 H (8.4-10.2) mg/dL Phosphorus 5.20 H (2.5-4.5) mg/dL Ferritin (10.0-200.0) ng/mL Troponin T (0.00-0.029) ng/mL C-Reactive Protein (0.00-1.30) mg/dL Albumin (3.9-5) g/dL Triglycerides (2-149) mg/dL LDL Cholesterol Direct (50-130) mg/dL HDL Cholesterol (40-59) mg/dL Urine WBC (Auto) (0.0-6.0) /HPF Assessment and Plan Cultures: Blood culture pending SARS CoV2 PCR pending Assessment: 86-year-old female with history of hypertension, diabetes mellitus, gout, recent falls with head contusion, resident of a assisted facility, admitted on 04/19/2021 secondary to altered mental status/lethargy: #Severe sepsis: Present on admission with high fever, tachycardia, neutropenia, elevated lactate, elevated creatinine; likely secondary to possible pneumonia and UTI. #Possible pneumonia: Should rule out COVID-19 pneumonia versus hospital-acquired pneumonia. Chest ray with bilateral increased interstitial markings. CT with left upper lobe density, eventration of the left hemidiaphragm. #UTI: Urinalysis with 166 WBCs and large leukocyte esterase. #Acute hypoxemic respiratory failure: #Elevated LFTs: from COVID #JIMMY: Likely secondary to sepsis. #Acute encephalopathy: Likely secondary to sepsis. #Hypernatremia: Per primary team. Recommendations: -Follow-up blood cultures and urine cultures -Follow-up SARS-CoV-2 PCR -No indication for dexamethasone or remdesivir as patient is not hypoxic -Stop ceftriaxone and azithromycin -Start cefepime and Zyvox -Check MRSA PCR -Monitor inflammatory markers - ferritin, Ddimer, CRP, LDH -Continue anticoagulation per System Protocol All laboratory, cultures and imaging were reviewed Will follow Melissa Rogel MD Infectious Diseases [employer] [facility] M [phone] O [phone]
[2021-04-20] MEDS: PANTOPRAZOLE 40 MG INJ IV SCH (11:17)
[2021-04-20 11:53] LABS: Calcium 10.5 mg/dL (8.4-10.2)
--- NOTE | 2021-04-20 12:54 | Vascular Lab Report ---
DUPLEX DOPPLER LOWER EXTREMITY VEINS, BILATERAL INDICATION: elevated d-dimer. Shortness of breath TECHNIQUE: Duplex doppler imaging was performed through the veins of both lower extremities using venous dylan vu and other maneuvers. COMPARISON: None available. FINDINGS: Right Common femoral vein: Negative. Right Superficial femoral vein: Negative. Right Popliteal vein: Negative. Right Calf veins: Negative. Left Common femoral vein: Negative. Left Superficial femoral vein: Negative. Left Popliteal vein: Negative. Left Calf veins: Negative. Additional findings: None. IMPRESSION: Negative for DVT. Signer Name: Vipul Painting MD Signed: 04/20/2021 12:49 PM Workstation Name: [email or web address]
--- NOTE | 2021-04-20 13:27 | Event Note ---
Date: 04/20/21 Patient seen and examined 86-year-old female admitted for severe dehydration, JIMMY, hyponatremia and Covid PUI Continue hypotonic fluid, follow-up pending Covid test Patient appears to be very lethargic, unable to follow any command, continue to follow serial BMP. -It took me about 28 minutes to reevaluate and reasses this patient, discussed w javier RN/CM, review medical documents, lab results, imaging, medication list and placing order.
[2021-04-20] MEDS: CEFEPIME/NS 2 GM/100 ML 2 GM/100 ML BAG IV SCH (15:45)
[2021-04-20] MEDS: LINEZOLID 600 MG/300 ML BAG IV SCH ×2 (16:30→23:45)
--- NOTE | 2021-04-20 17:31 | Ultrasound Report ---
ULTRASOUND RENAL INDICATION / CLINICAL INFORMATION: Acute kidney injury. COMPARISON: None available. FINDINGS: RIGHT KIDNEY: Length = 9.9 cm. - Echogenicity: Normal. - Cortical Thickness: Normal. - Hydronephrosis: None. - Cyst / Mass: 1.7 cm cyst in the upper pole - Stones: None seen. LEFT KIDNEY: Length = 10.1 cm. - Echogenicity: Normal. - Cortical Thickness: Normal. - Hydronephrosis: None. - Cyst / Mass: None. - Stones: None seen. URINARY BLADDER: No significant abnormality. FREE FLUID: None. ADDITIONAL FINDINGS: None. IMPRESSION: 1. No significant abnormality. Signer Name: Gagandeep Sexton MD Signed: 04/20/2021 5:26 PM Workstation Name: [id number]
[2021-04-20 19:51] LABS: Calcium 10.6 mg/dL (8.4-10.2)
[2021-04-21] MEDS: INSULIN LISPRO 100 UNIT/ML SUB-Q SCH ×4 (01:00→18:41)
[2021-04-21 01:31] LABS: Calcium 5.6 mg/dL (8.4-10.2)
[2021-04-21] MEDS: DEXTROSE 5% IN WATER 1,000 ML IV SCH ×2 (01:47→20:45)
[2021-04-21 02:05] LABS: Calcium 10.1 mg/dL (8.4-10.2)
[2021-04-21] MEDS: CEFEPIME/NS 2 GM/100 ML 2 GM/100 ML BAG IV SCH (09:38)
[2021-04-21] MEDS: PANTOPRAZOLE 40 MG INJ IV SCH (09:38)
--- NOTE | 2021-04-21 12:10 | Progress Note ---
Assessment and Plan - Patient Problems (1) Acute kidney failure Current Visit: Yes Status: Acute Plan to address problem: Prerenal azotemia versus acute tubular necrosis secondary to hypotension/sepsis. Patient may also have Superimposed drug induced nephropathy Meloxicam and or allopurinol. Urinalysis shows hematuria, pyuria and mild to moderate p roteinuria. Follow-up urine studies. Continue volume repletion. Follow-up electrolytes and renal function. (2) Hypernatremia Current Visit: Yes Status: Acute Plan to address problem: Sodium is improving. Continue Free water replacement parenterally by giving hypotonic fluids. Follow-up sodium (3) Metabolic acidosis Current Visit: Yes Status: Acute Plan to address problem: Uremic and possible lactic acidosis. Improving. Continue treatment of underlying conditions (4) Sepsis due to urinary tract infection Current Visit: Yes Status: Acute Plan to address problem: Follow-up cultures. Continue empiric antibiotics appropriately dosed to the degree of renal function (5) Hypotension Current Visit: Yes Status: Acute Plan to address problem: Improved with volume repletion. Follow blood pressure (6) Type 2 diabetes mellitus Current Visit: Yes Status: Acute Plan to address problem: Blood sugar management by primary attending. (7) Hypertension Current Visit: Yes Status: Acute Plan to address problem: Blood pressure was low on presentation. Follow-up blood pressure (8) Acute metabolic encephalopathy Current Visit: Yes Status: Acute Plan to address problem: Toxic versus metabolic encephalopathy. Patient was on Keppra and with was in renal function dose was now high and may have contributed to decreased mental status. Metabolic encephalopathy syndrome secondary to uremia and hypernatremia. Mental status improving. Follow-up mental status with correction of abnormalities (9) Suspected COVID-19 virus infection Current Visit: Yes Status: Acute Plan to address problem: Follow-up SARS coronavirus 2 PCR Subjective Date of service: 04/21/21 Principal diagnosis: Acute kidney injury, sepsis Interval history: Patient seen lying in bed. She has no complaints. Speaking but barely audible Objective - Exam Narrative Exam: Frail elderly -[place] female lying in bed in no acute distress HEENT: NCAT, pink oral mucous membrane Neck: Supple, no venous distention CVS: S1S2 RRR with no murmur, rub or gallop Chest: Clear to auscultation Abdomen: Protuberant, soft, nontender, no organomegaly, bowel sounds are present Extremities: No edema Skin warm and dry Neuro: Awake, alert no focal deficits - Vital Signs Vital signs: Vital Signs - 12hr 04/21/21 04/21/21 04/21/21 00:13 01:00 03:17 Temperature 98.1 F 97.8 F Pulse Rate 83 72 Respiratory 18 18 Rate Blood Pressure 119/67 115/65 O2 Sat by Pulse 100 100 99 Oximetry - Lab 04/20/21 03:34 04/21/21 01:47 Most recent lab results Calcium 10.1 mg/dL (8.4-10.2) D 04/21/21 01:47 Phosphorus 5.20 mg/dL (2.5-4.5) H 04/20/21 08:26 Medications & Allergies - Medications Allergies/Adverse Reactions: Allergies No Known Allergies Allergy (Verified 03/15/21 10:30) Home Medications: Home Medications Medication Instructions Recorded Confirmed Last Taken Type Ferrous Sulfate [Iron 325 MG] 325 mg PO DAILY 03/17/21 03/17/21 Unknown History Lovastatin [Altoprev] 40 mg PO DAILY 03/17/21 03/17/21 Unknown History Meloxicam [Mobic] 7.5 mg DAILY 03/17/21 03/17/21 Unknown History Omeprazole 20 mg PO DAILY 03/17/21 03/17/21 Unknown History Sennosides [Senna] 40 mg PO DAILY 03/17/21 03/17/21 Unknown History Sitagliptin Phos/Metformin HCl tab DAILY 03/17/21 Unknown History [Janumet XR 50-1,000 mg] allopurinoL [Zyloprim] 300 mg PO QDAY 03/17/21 03/17/21 Unknown History amLODIPine 10 mg PO DAILY 03/17/21 03/17/21 Unknown History levETIRAcetam [Keppra TAB] 500 mg PO BID 03/17/21 03/17/21 Unknown History Aspirin [Adult Aspirin] 81 mg PO DAILY #30 tablet. 03/22/21 Unknown Rx Famotidine [Pepcid] 20 mg PO BID #60 tablet 03/22/21 Unknown Rx Linagliptin [Tradjenta] 5 mg PO QAMDIAB #30 tablet 03/22/21 Unknown Rx metFORMIN XR [Glucophage XR] 1,000 mg PO QDDIAB #60 tablet 03/22/21 Unknown Rx traMADoL [Ultram 50 MG tab] 225 mg PO Q6HR #20 03/22/21 Unknown Rx Active Medications: Generic Name Dose Route Start Last Admin Trade Name Freq PRN Reason Stop Dose Admin Acetaminophen 650 mg 04/20/21 02:16 Acetaminophen 650 Mg Rect Supp [place] Q4H PRN Pain MILD(1-3)/Fever >100.5/FERRARI Albuterol 2.5 mg 04/20/21 02:16 Albuterol 2.5 Mg/3 Ml Nebu IH Q3HRT PRN Shortness Of Breath Dextrose 50 ml 04/20/21 02:16 Dextrose 50% In Water (25gm) 50 Ml Syringe IV Q30MIN PRN Hypoglycemia Protocol Heparin Sodium (Porcine) 2,500 unit 04/20/21 02:29 Heparin 10,000 Units/10 Ml Vial 40 unit/kg (2500 unit) IV Q6H PRN Anti-Xa Assay < 0.1 units/ml Dextrose 1,000 mls @ 100 mls/hr 04/20/21 03:00 04/21/21 01:47 D5w IV 100 mls/hr DIRECT CONNIE Administration Heparin Sodium/Sodium Chloride 25,000 unit in 500 mls @ 18 mls/hr 04/20/21 03:00 04/20/21 20:05 Heparin/ 0.45% Nacl-25,000 Unit/500 Ml IV 850 units/hr TITR CONNIE 17 mls/hr Titration Protocol 900 UNITS/HR Cefepime HCl 2 gm in 100 mls @ 200 mls/hr 04/20/21 12:00 04/21/21 09:38 Cefepime/Ns 2 Gm/100 Ml IV 200 mls/hr Q24HR CONNIE Administration Protocol Linezolid 600 mg in 300 mls @ 300 mls/hr 04/20/21 14:00 04/20/21 23:45 Zyvox 600mg/300ml IV 300 mls/hr Q12HR CONNIE Administration Protocol Insulin Human Lispro 0 unit 04/20/21 06:00 04/21/21 05:32 Insulin Lispro 100 Unit/Ml SUB-Q 2 unit Q6HR CONNIE Administration Protocol Ondansetron HCl 4 mg 04/20/21 02:16 Ondansetron 4 Mg/2 Ml Inj IV Q6H PRN Nausea And Vomiting Pantoprazole Sodium 40 mg 04/20/21 10:00 04/21/21 09:38 Pantoprazole 40 Mg Inj IV 40 mg QDAY CONNIE Administration Sodium Chloride 10 ml 04/20/21 10:00 04/21/21 09:38 Sodium Chloride 0.9% 10 Ml Flush Syringe IV 10 ml BID CONNIE Administration Sodium Chloride 10 ml 04/20/21 02:16 Sodium Chloride 0.9% 10 Ml Flush Syringe IV PRN PRN LINE FLUSH
[2021-04-21] MEDS: LINEZOLID 600 MG/300 ML BAG IV SCH ×2 (12:18→23:04)
--- NOTE | 2021-04-21 12:23 | Progress Note ---
Assessment and Plan Cultures: Blood culture 04/19/2021 no growth today SARS CoV2 PCR negative Assessment: 86-year-old female with history of hypertension, diabetes mellitus, gout, recent falls with head contusion, resident of a [facility] facility, admitted on 04/19/2021 secondary to altered mental status/lethargy: #Severe sepsis: Improving; likely secondary to possible pneumonia and UTI. #Possible pneumonia: Possible hospital-acquired pneumonia. SARS-CoV-2 PCR negative. Chest ray with bilateral increased interstitial markings. CT with left upper lobe density, eventration of the left hemidiaphragm. #UTI: Urinalysis with 166 WBCs and large leukocyte esterase. #Acute hypoxemic respiratory failure: On 2 L, no desaturations. #Elevated LFTs: from COVID #JIMMY: Likely secondary to sepsis. #Acute encephalopathy: Slightly better. Likely secondary to sepsis. #Hypernatremia: Per primary team/renal. Recommendations: -Follow-up blood cultures and urine cultures -Continue cefepime and Zyvox D2 of 5 -Check MRSA PCR pending All laboratory, cultures and imaging were reviewed Will follow Melissa Rogel MD Infectious Diseases Vehicle Cost Engineer [facility] M [phone] O [phone] Subjective Date of service: 04/21/21 Principal diagnosis: Acute kidney injury, sepsis Interval history: Patient feels better. Still confused and slightly sleepy. No fever. Objective - Exam Narrative Exam: General appearance: Slightly sleepy in NAD Eyes: anicteric sclerae, moist conjunctivae; no lid-lag; PERRLA HENT: Normocephalic, Atraumatic; normal external ears, nares open, oropharynx clear with moist mucous membranes and no oral thrush Neck: supple, tracheal midline, no JVD Lungs: Clear to auscultation bilaterally CV: RRR no murmur Abdomen: Soft, non-tender; no masses or hepatosplenomegaly Extremities: no edema, no cyanosis Skin: No rash. Psych: no agitated Neuro: Slightly somnolent, follows commands - Constitutional Vitals: Vital Signs Temp Pulse Resp BP Pulse Ox 97.8 F 72 18 115/65 99 04/21/21 03:17 04/21/21 03:17 04/21/21 03:04/21/21 03:04/21/21 03:17 Temperature -Last 24 Hours Temperature 97.8 F Temperature 98.1 F - Labs CBC & Chem 7: 04/20/21 03:34 04/21/21 01:47 Labs: Abnormal lab results 04/20/21 04/20/21 04/20/21 Range/Units 17:01 19:14 23:51 Sodium 160 H (137-145) mmol/L Potassium (3.6-5.0) mmol/L Chloride 129.9 H (98-107) mmol/L Carbon Dioxide 19 L (22-30) mmol/L BUN 115 H (7-17) mg/dL Creatinine 2.9 H (0.6-1.2) mg/dL Glucose 300 H (65-100) mg/dL POC Glucose 280 H 134 H (70-105) mg/dL Calcium 10.6 H (8.4-10.2) mg/dL 04/21/21 04/21/21 04/21/21 Range/Units 00:27 00:46 01:47 Sodium 97 L* D 161 H* D (137-145) mmol/L Potassium 2.4 L* D (3.6-5.0) mmol/L Chloride 64.3 L 131.1 H (98-107) mmol/L Carbon Dioxide 10 L D 20 L D (22-30) mmol/L BUN 62 H 103 H (7-17) mg/dL Creatinine 1.7 H 2.6 H D (0.6-1.2) mg/dL Glucose 2117 H* 195 H (65-100) mg/dL POC Glucose 141 H (70-105) mg/dL Calcium 5.6 L* D (8.4-10.2) mg/dL 04/21/21 Range/Units 05:24 Sodium (137-145) mmol/L Potassium (3.6-5.0) mmol/L Chloride (98-107) mmol/L Carbon Dioxide (22-30) mmol/L BUN (7-17) mg/dL Creatinine (0.6-1.2) mg/dL Glucose (65-100) mg/dL POC Glucose 175 H (70-105) mg/dL Calcium (8.4-10.2) mg/dL
--- NOTE | 2021-04-21 15:06 | Progress Note ---
Assessment and Plan 86-year-old female with history of hypertension, diabetes mellitus, gout, recent falls with head contusion, [facility], admitted on 04/19/2021 secondary to altered mental status/lethargy: Assessment and Plan: Sepsis -Source of infection includes pneumonia and UTI -Leukocytosis 11.8 -Tachycardia 104 -AMS -Lactic acid 2.4 -Start IVF and IV abx -Cultures pending Urinary tract infection -UA positive for UTI -urine wbc -Urine culture pending -on IV Abx Hypernatremia -Severe at 163 -Likely secondary to dehydration, poor oral intake -Neurochecks -Sodium checks -On D5W JIMMY -BUN/Cr on admission 158/6.1 (baseline 18/1.0 on 03/22/2021) -Hydrate with IVF -Monitor intake and output -Avoid nephrotoxic agents -Renal dose all meds -Monitor renal function -Nephrology consulted Pneumonia -CXR shows Increased interstitial prominence with lower lobe opacities -Blood Cultures pending -Start on IV Abx Acute metabolic encephalopathy -CT head negative acute abnormalities -Blood and urine cultures pending -Neuro checks -N.p.o. for now, will need swallow screen prior to initiating diet orders Elevated D-dimer -At 1413 -Patient unable to get CT angio due to renal function -noncontrast CT chest showed pneumonia, bilateral lower extremity Doppler, and VQ scan negative for DVT or PE Acute hypoxic respiratory failure -No Baseline home oxygen requirements -Saturation of 86% on room air -Currently on 4L supplemental oxygen with saturation of 97% -Monitor saturations -Continue supplemental oxygen wean as tolerated Elevated troponin -X1, will continue to trend -EKG unrevealing for acute ischemic abnormalities -?? Related to renal insufficiency DM -POC BG monitoring -SSI coverage prn History of hypertension -Presently normotensive/borderline hypotensive -We will hold antihypertensive meds for now, resume when appropriate History of recent fall with head contusion -Will need PT/OT eval and treat when more alert -Initiate fall precautions Suspected COVID-19 virus infection, ruled out with a negative test DVT PPX -on Heparin gtt Daily clinical course: 04/21/21: VQ scan showed low probability for PE, CT chest suggestive for bilateral PNA. Covid test is negative. Sodium level persistently elevated. Continue hypotonic fluid, monitor with serial BMP. Stop heparin drip. Follow clinically, guarded prognosis Subjective Date of service: 04/21/21 Principal diagnosis: Acute kidney injury, sepsis Interval history: Patient seen and examined Vitals noted, patient appears sleepy denies any acute issue Objective - Exam Narrative Exam: General appearance: Slightly sleepy in NAD Eyes: anicteric sclerae, moist conjunctivae; no lid-lag; PERRLA HENT: Normocephalic, Atraumatic; normal external ears, nares open, oropharynx clear with moist mucous membranes and no oral thrush Neck: supple, tracheal midline, no JVD Lungs: Clear to auscultation bilaterally CV: RRR no murmur Abdomen: Soft, non-tender; no masses or hepatosplenomegaly Extremities: no edema, no cyanosis Skin: No rash. Psych: no agitated Neuro: Slightly somnolent, follows commands - Constitutional Vitals: Vital Signs - 12hr 04/21/21 04/21/21 04/21/21 03:17 09:15 09:17 Temperature 97.8 F Pulse Rate 72 69 Respiratory 18 14 14 Rate Blood Pressure 115/65 109/64 O2 Sat by Pulse 99 97 Oximetry 04/21/21 04/21/21 12:33 13:00 Temperature Pulse Rate 79 Respiratory 18 Rate Blood Pressure 122/65 O2 Sat by Pulse 100 97 Oximetry - Labs CBC & Chem 7: 04/28/21 05:43 04/27/21 05:48 Labs: Abnormal lab results 04/20/21 04/20/21 04/20/21 Range/Units 17:01 19:14 23:51 Sodium 160 H (137-145) mmol/L Potassium (3.6-5.0) mmol/L Chloride 129.9 H (98-107) mmol/L Carbon Dioxide 19 L (22-30) mmol/L BUN 115 H (7-17) mg/dL Creatinine 2.9 H (0.6-1.2) mg/dL Glucose 300 H (65-100) mg/dL POC Glucose 280 H 134 H (70-105) mg/dL Calcium 10.6 H (8.4-10.2) mg/dL 04/21/21 04/21/21 04/21/21 Range/Units 00:27 00:46 01:47 Sodium 97 L* D 161 H* D (137-145) mmol/L Potassium 2.4 L* D (3.6-5.0) mmol/L Chloride 64.3 L 131.1 H (98-107) mmol/L Carbon Dioxide 10 L D 20 L D (22-30) mmol/L BUN 62 H 103 H (7-17) mg/dL Creatinine 1.7 H 2.6 H D (0.6-1.2) mg/dL Glucose 2117 H* 195 H (65-100) mg/dL POC Glucose 141 H (70-105) mg/dL Calcium 5.6 L* D (8.4-10.2) mg/dL 04/21/21 Range/Units 05:24 Sodium (137-145) mmol/L Potassium (3.6-5.0) mmol/L Chloride (98-107) mmol/L Carbon Dioxide (22-30) mmol/L BUN (7-17) mg/dL Creatinine (0.6-1.2) mg/dL Glucose (65-100) mg/dL POC Glucose 175 H (70-105) mg/dL Calcium (8.4-10.2) mg/dL HEART Score - HEART Score Troponin: Troponin T 0.031 ng/mL (0.00-0.029) H 04/20/21 08:26
[2021-04-21] MEDS ORDERED: SIMPLE SYRUP 15 ML FEEDTUBE PRN ×4 (15:07→17:17)
[2021-04-21] MEDS ORDERED: SODIUM BICARBONATE 325 MG TAB FEEDTUBE PRN ×2 (15:07→17:17)
[2021-04-21] MEDS ORDERED: LIPASE 10,500/PROTEASE 25,000/AMYLASE 43,750 (UNITS) DR CAP FEEDTUBE PRN ×2 (15:07→17:17)
[2021-04-21 17:53] LABS: Creatinine,Urine 61.2 mg/dL (0.1-20.0)
[2021-04-21 17:59] LABS: Calcium 10.6 mg/dL (8.4-10.2)
--- NOTE | 2021-04-21 19:49 | XRay Report ---
XR abdomen 1V ap INDICATION: dobhoff placement COMPARISON: None. FINDINGS/IMPRESSION: Feeding tube terminates in the mid stomach. Signer Name: Albin Tse MD Signed: 04/21/2021 7:45 PM Workstation Name: [id number]
[2021-04-21 20:28] LABS: Calcium 10.7 mg/dL (8.4-10.2)
[2021-04-21] MEDS: HEPARIN 5,000 UNIT/1 ML VIAL SUB-Q SCH (23:05)
[2021-04-22] MEDS: INSULIN LISPRO 100 UNIT/ML SUB-Q SCH ×4 (00:32→19:15)
[2021-04-22 06:31] LABS: Hematocrit 35.4 % (30.3-42.9); Hemoglobin 10.9 gm/dl (10.1-14.3)
[2021-04-22] MEDS: HEPARIN 5,000 UNIT/1 ML VIAL SUB-Q SCH ×3 (06:40→21:51)
[2021-04-22 07:00] LABS: Calcium 10.6 mg/dL (8.4-10.2)
--- NOTE | 2021-04-22 08:44 | Progress Note ---
Assessment and Plan - Patient Problems (1) Acute kidney failure Current Visit: Yes Status: Acute Plan to address problem: Prerenal azotemia versus acute tubular necrosis secondary to hypotension/sepsis. Patient may also have Superimposed drug induced nephropathy Meloxicam and or allopurinol. Urinalysis shows hematuria, pyuria and mild to moderate p roteinuria. Kidney function is improving. Continue volume repletion. Follow-up electrolytes and renal function. (2) Hypernatremia Current Visit: Yes Status: Acute Plan to address problem: Sodium is marginally. Continue Free water replacement parenterally by giving hypotonic fluids. We will also start free water via IV and nasogastric tube. Follow-up sodium (3) Metabolic acidosis Current Visit: Yes Status: Acute Plan to address problem: Uremic and possible lactic acidosis. Improving. Continue treatment of underlying conditions (4) Sepsis due to urinary tract infection Current Visit: Yes Status: Acute Plan to address problem: Follow-up cultures. Continue empiric antibiotics appropriately dosed to the degree of renal function (5) Hypotension Current Visit: Yes Status: Acute Plan to address problem: Improved with volume repletion. Follow blood pressure (6) Type 2 diabetes mellitus Current Visit: Yes Status: Acute Plan to address problem: Blood sugar management by primary attending. (7) Hypertension Current Visit: Yes Status: Acute Plan to address problem: Blood pressure was low on presentation. Follow-up blood pressure (8) Acute metabolic encephalopathy Current Visit: Yes Status: Acute Plan to address problem: Toxic versus metabolic encephalopathy. Patient was on Keppra and with was in renal function dose was now high and may have contributed to decreased mental status. Metabolic encephalopathy syndrome secondary to uremia and hypernatremia. Mental status improving. Follow-up mental status with correction of abnormalities Subjective Date of service: 04/23/21 Principal diagnosis: Acute kidney injury, sepsis Interval history: Patient seen lying in bed. She has no complaints. She now has a nasogastric tube and is getting tube feeds Objective - Exam Narrative Exam: Frail elderly -[place] female lying in bed in no acute distress HEENT: NCAT, nasogastric tube intact Neck: Supple, no venous distention CVS: S1S2 RRR with no murmur, rub or gallop Chest: Clear to auscultation Abdomen: Protuberant, soft, nontender, no organomegaly, bowel sounds are present Extremities: No edema Skin warm and dry Neuro: Awake, alert no focal deficits - Vital Signs Vital signs: Vital Signs - 12hr 04/21/21 04/22/21 04/22/21 23:24 01:00 03:27 Temperature 97.6 F 98.6 F Pulse Rate 97 H Respiratory 18 18 Rate Blood Pressure 132/86 149/79 O2 Sat by Pulse 100 97 29 L Oximetry 04/22/21 07:42 Temperature 98.4 F Pulse Rate 84 Respiratory 18 Rate Blood Pressure 119/67 O2 Sat by Pulse 100 Oximetry - Lab 04/23/21 04:04 04/23/21 04:04 Most recent lab results Calcium 10.6 mg/dL (8.4-10.2) H 04/22/21 04:53 Phosphorus 5.20 mg/dL (2.5-4.5) H 04/20/21 08:26 Urine Creatinine 61.2 mg/dL (0.1-20.0) H 04/21/21 10:00 Urine Sodium 45 mmol/L 04/21/21 10:00 Urine Total Protein 32 mg/dL (5-11.8) H 04/21/21 10:00 Medications & Allergies - Medications Allergies/Adverse Reactions: Allergies No Known Allergies Allergy (Verified 03/15/21 10:30) Home Medications: Home Medications Medication Instructions Recorded Confirmed Last Taken Type Ferrous Sulfate [Iron 325 MG] 325 mg PO DAILY 03/17/21 03/17/21 Unknown History Lovastatin [Altoprev] 40 mg PO DAILY 03/17/21 03/17/21 Unknown History Meloxicam [Mobic] 7.5 mg DAILY 03/17/21 03/17/21 Unknown History Omeprazole 20 mg PO DAILY 03/17/21 03/17/21 Unknown History Sennosides [Senna] 40 mg PO DAILY 03/17/21 03/17/21 Unknown History Sitagliptin Phos/Metformin HCl tab DAILY 03/17/21 Unknown History [Janumet XR 50-1,000 mg] allopurinoL [Zyloprim] 300 mg PO QDAY 03/17/21 03/17/21 Unknown History amLODIPine 10 mg PO DAILY 03/17/21 03/17/21 Unknown History levETIRAcetam [Keppra TAB] 500 mg PO BID 03/17/21 03/17/21 Unknown History Aspirin [Adult Aspirin] 81 mg PO DAILY #30 tablet. 03/22/21 Unknown Rx Famotidine [Pepcid] 20 mg PO BID #60 tablet 03/22/21 Unknown Rx Linagliptin [Tradjenta] 5 mg PO QAMDIAB #30 tablet 03/22/21 Unknown Rx metFORMIN XR [Glucophage XR] 1,000 mg PO QDDIAB #60 tablet 03/22/21 Unknown Rx traMADoL [Ultram 50 MG tab] 225 mg PO Q6HR #20 03/22/21 Unknown Rx Active Medications: Generic Name Dose Route Start Last Admin Trade Name Freq PRN Reason Stop Dose Admin Acetaminophen 650 mg 04/20/21 02:16 Acetaminophen 650 Mg Rect Supp LA Q4H PRN Pain MILD(1-3)/Fever >100.5/FERRARI Albuterol 2.5 mg 04/20/21 02:16 Albuterol 2.5 Mg/3 Ml Nebu IH Q3HRT PRN Shortness Of Breath Lipase/Protease/Amylase 1 each 04/21/21 17:17 Lipase 10,500/Protease 25,000/Amylase 43,750 (Units) Dr Collier FEEDTUBE PRN PRN For Clogged Feeding Tube Dextrose 50 ml 04/20/21 02:16 Dextrose 50% In Water (25gm) 50 Ml Syringe IV Q30MIN PRN Hypoglycemia Protocol Heparin Sodium (Porcine) 5,000 unit 04/21/21 22:00 04/22/21 06:40 Heparin 5,000 Unit/1 Ml Vial SUB-Q 5,000 unit Q8HR CONNIE Administration Dextrose 1,000 mls @ 100 mls/hr 04/20/21 03:00 04/21/21 20:45 D5w IV 100 mls/hr DIRECT CONNIE Administration Cefepime HCl 2 gm in 100 mls @ 200 mls/hr 04/20/21 12:00 04/21/21 09:38 Cefepime/Ns 2 Gm/100 Ml IV 200 mls/hr Q24HR CONNIE Administration Protocol Linezolid 600 mg in 300 mls @ 300 mls/hr 04/20/21 14:00 04/21/21 23:04 Zyvox 600mg/300ml IV 300 mls/hr Q12HR CONNIE Administration Protocol Insulin Human Lispro 0 unit 04/20/21 06:00 04/22/21 06:40 Insulin Lispro 100 Unit/Ml SUB-Q 2 unit Q6HR CONNIE Administration Protocol Ondansetron HCl 4 mg 04/20/21 02:16 Ondansetron 4 Mg/2 Ml Inj IV Q6H PRN Nausea And Vomiting Pantoprazole Sodium 40 mg 04/20/21 10:00 04/21/21 09:38 Pantoprazole 40 Mg Inj IV 40 mg QDAY CONNIE Administration Simple Syrup 30 ml 04/21/21 15:07 Simple Syrup 15 Ml FEEDTUBE PRN PRN Hypoglycemia Simple Syrup 30 ml 04/21/21 17:17 Simple Syrup 15 Ml FEEDTUBE PRN PRN Hypoglycemia Sodium Bicarbonate 325 mg 04/21/21 17:17 Sodium Bicarbonate 325 Mg Tab FEEDTUBE PRN PRN For Clogged Feeding Tube Sodium Chloride 10 ml 04/20/21 10:00 04/21/21 23:05 Sodium Chloride 0.9% 10 Ml Flush Syringe IV 10 ml BID CONNIE Administration Sodium Chloride 10 ml 04/20/21 02:16 Sodium Chloride 0.9% 10 Ml Flush Syringe IV PRN PRN LINE FLUSH
[2021-04-22 09:14] LABS: Calcium 10.2 mg/dL (8.4-10.2)
[2021-04-22] MEDS: CEFEPIME/NS 2 GM/100 ML 2 GM/100 ML BAG IV SCH (09:36)
[2021-04-22] MEDS: PANTOPRAZOLE 40 MG INJ IV SCH (09:51)
[2021-04-22] MEDS ORDERED: SIMPLE SYRUP 15 ML FEEDTUBE PRN ×2 (11:35→12:00)
[2021-04-22] MEDS ORDERED: LIPASE 10,500/PROTEASE 25,000/AMYLASE 43,750 (UNITS) DR CAP FEEDTUBE PRN (11:35)
[2021-04-22] MEDS ORDERED: SODIUM BICARBONATE 325 MG TAB FEEDTUBE PRN (11:35)
[2021-04-22] MEDS: LINEZOLID 600 MG/300 ML BAG IV SCH ×2 (13:42→21:52)
--- NOTE | 2021-04-22 14:42 | Progress Note ---
Assessment and Plan Cultures: Blood culture 04/19/2021 no growth today SARS CoV2 PCR negative Assessment: 86-year-old female with history of hypertension, diabetes mellitus, gout, recent falls with head contusion, resident of a halfway facility, admitted on 04/19/2021 secondary to altered mental status/lethargy: #Severe sepsis: Improving; likely secondary to possible pneumonia and UTI. #Possible hospital-acquired pneumonia. SARS-CoV-2 PCR negative. Chest ray with bilateral increased interstitial markings. CT with left upper lobe density, eventration of the left hemidiaphragm. #UTI: Urinalysis with 166 WBCs and large leukocyte esterase. #Acute hypoxemic respiratory failure: On 2 L, no desaturations. #Elevated LFTs: from COVID #JIMMY: Likely secondary to sepsis. Improving. #Acute encephalopathy: Slightly better. Likely secondary to sepsis. #Hypernatremia: Per primary team/renal. Recommendations: -Follow-up blood cultures and urine cultures -Continue cefepime and Zyvox D3 of 5 -Check MRSA PCR pending -Monitor mentation All laboratory, cultures and imaging were reviewed Will follow Melissa Rogel MD Infectious Diseases [employer] [facility] ([facility]) M [phone] O [phone] Subjective Date of service: 04/22/21 Principal diagnosis: Acute kidney injury, sepsis Interval history: Patient is more somnolent today. Nonverbal. No fever. Objective - Exam Narrative Exam: General appearance: somnolent arousable Eyes: anicteric sclerae, moist conjunctivae; no lid-lag; PERRLA HENT: Normocephalic, Atraumatic; normal external ears, nares open, oropharynx limited NG tube in place Neck: supple, tracheal midline, no JVD Lungs: Clear to auscultation bilaterally CV: RRR no murmur Abdomen: Soft, nontender Extremities: no edema, no cyanosis Skin: No rash. Psych: no agitated Neuro: somnolent, follows commands - Constitutional Vitals: Vital Signs Temp Pulse Resp BP Pulse Ox 98.4 F 84 18 119/67 100 04/22/21 07:42 04/22/21 07:42 04/22/21 07:42 04/22/21 07:42 04/22/21 07:42 Temperature -Last 24 Hours Temperature 98.4 F Temperature 98.6 F Temperature 97.6 F Temperature 98.6 F - Labs CBC & Chem 7: 04/22/21 04:53 04/22/21 08:35 Labs: Abnormal lab results 04/21/21 04/21/21 04/21/21 Range/Units 10:00 16:53 17:09 Heparin Anti-Xa Level (0.3-0.7) U.I./ml Sodium 160 H (137-145) mmol/L Potassium (3.6-5.0) mmol/L Chloride 128.9 H (98-107) mmol/L Carbon Dioxide 17 L (22-30) mmol/L BUN 74 H (7-17) mg/dL Creatinine 1.8 H (0.6-1.2) mg/dL Glucose 231 H (65-100) mg/dL POC Glucose 153 H (70-105) mg/dL Calcium 10.6 H (8.4-10.2) mg/dL Urine Creatinine 61.2 H (0.1-20.0) mg/dL Urine Total Protein 32 H (5-11.8) mg/dL 04/21/21 04/21/21 04/22/21 Range/Units 19:44 19:50 00:02 Heparin Anti-Xa Level 0.92 H (0.3-0.7) U.I./ml Sodium 161 H* (137-145) mmol/L Potassium (3.6-5.0) mmol/L Chloride 131.2 H (98-107) mmol/L Carbon Dioxide 21 L (22-30) mmol/L BUN 70 H (7-17) mg/dL Creatinine 1.7 H (0.6-1.2) mg/dL Glucose 198 H (65-100) mg/dL POC Glucose 207 H (70-105) mg/dL Calcium 10.7 H (8.4-10.2) mg/dL Urine Creatinine (0.1-20.0) mg/dL Urine Total Protein (5-11.8) mg/dL 04/22/21 04/22/21 04/22/21 Range/Units 04:53 06:28 08:35 Heparin Anti-Xa Level (0.3-0.7) U.I./ml Sodium 160 H 156 H (137-145) mmol/L Potassium 3.4 L 3.3 L (3.6-5.0) mmol/L Chloride 127.7 H 126.3 H (98-107) mmol/L Carbon Dioxide 17 L 19 L (22-30) mmol/L BUN 53 H 48 H (7-17) mg/dL Creatinine 1.4 H 1.3 H (0.6-1.2) mg/dL Glucose 197 H 181 H (65-100) mg/dL POC Glucose 181 H (70-105) mg/dL Calcium 10.6 H (8.4-10.2) mg/dL Urine Creatinine (0.1-20.0) mg/dL Urine Total Protein (5-11.8) mg/dL 04/22/21 Range/Units 11:24 Heparin Anti-Xa Level (0.3-0.7) U.I./ml Sodium (137-145) mmol/L Potassium (3.6-5.0) mmol/L Chloride (98-107) mmol/L Carbon Dioxide (22-30) mmol/L BUN (7-17) mg/dL Creatinine (0.6-1.2) mg/dL Glucose (65-100) mg/dL POC Glucose 163 H (70-105) mg/dL Calcium (8.4-10.2) mg/dL Urine Creatinine (0.1-20.0) mg/dL Urine Total Protein (5-11.8) mg/dL
--- NOTE | 2021-04-22 16:01 | Progress Note ---
Assessment and Plan Sepsis -Source of infection includes pneumonia and UTI -Leukocytosis 11.8 -Tachycardia 104 -AMS -Lactic acid 2.4 -Start IVF and IV abx -Cultures pending Urinary tract infection -UA positive for UTI -urine wbc -Urine culture pending -on IV Abx Hypernatremia -Severe at 163 -Likely secondary to dehydration, poor oral intake -Neurochecks -Sodium checks -On D5W JIMMY -BUN/Cr on admission 158/6.1 (baseline 18/1.0 on 03/22/2021) -Hydrate with IVF -Monitor intake and output -Avoid nephrotoxic agents -Renal dose all meds -Monitor renal function -Nephrology consulted Pneumonia -CXR shows Increased interstitial prominence with lower lobe opacities -Blood Cultures pending -Start on IV Abx Acute metabolic encephalopathy -CT head negative acute abnormalities -Blood and urine cultures pending -Neuro checks -will need swallow screen prior to initiating diet orders Elevated D-dimer -At 1413 -Patient unable to get CT angio due to renal function -noncontrast CT chest showed pneumonia, bilateral lower extremity Doppler, and VQ scan negative for DVT or PE Acute hypoxic respiratory failure -No Baseline home oxygen requirements -Saturation of 86% on room air -Currently on 4L supplemental oxygen with saturation of 97% -Monitor saturations -Continue supplemental oxygen wean as tolerated Elevated troponin -Likely due to elevated creatinine, will continue to trend -EKG unrevealing for acute ischemic abnormalities -?? Related to renal insufficiency, will obtain 2D echo DM -POC BG monitoring -SSI coverage prn History of hypertension -Presently normotensive/borderline hypotensive -We will hold antihypertensive meds for now, resume when appropriate History of recent fall with head contusion -Will need PT/OT eval and treat when more alert -Initiate fall precautions Suspected COVID-19 virus infection, ruled out with a negative test DVT PPX -on Heparin gtt Daily clinical course: 04/21/21: VQ scan showed low probability for PE, CT chest suggestive for bilateral PNA. Covid test is negative. Sodium level persistently elevated. Continue hypotonic fluid, monitor with serial BMP. Stop heparin drip. Follow clinically, guarded prognosis 04/22/21: Sodium level slightly improved, creatinine trended down. Off heparin drip. Initiated on tube feeding and patient is tolerating well. Mental status remains unchanged. Continue to follow clinically, follow BMP. Subjective Date of service: 04/22/21 Principal diagnosis: Acute kidney injury, sepsis Interval history: Patient seen and examined Vitals noted, patient appears somnolent denies any acute issue Objective - Exam Narrative Exam: General appearance: Slightly sleepy in NAD Eyes: anicteric sclerae, moist conjunctivae; no lid-lag; PERRLA HENT: Normocephalic, Atraumatic; normal external ears, nares open, oropharynx clear with moist mucous membranes and no oral thrush Neck: supple, tracheal midline, no JVD Lungs: Clear to auscultation bilaterally CV: RRR no murmur Abdomen: Soft, non-tender; no masses or hepatosplenomegaly Extremities: no edema, no cyanosis Skin: No rash. Psych: no agitated Neuro: Slightly somnolent, follows commands - Constitutional Vitals: Vital Signs - 12hr 04/22/21 07:42 Temperature 98.4 F Pulse Rate 84 Respiratory 18 Rate Blood Pressure 119/67 O2 Sat by Pulse 100 Oximetry - Labs CBC & Chem 7: 04/28/21 05:43 04/27/21 05:48 Labs: Abnormal lab results 04/21/21 04/21/21 04/21/21 Range/Units 10:00 16:53 17:09 Heparin Anti-Xa Level (0.3-0.7) U.I./ml Sodium 160 H (137-145) mmol/L Potassium (3.6-5.0) mmol/L Chloride 128.9 H (98-107) mmol/L Carbon Dioxide 17 L (22-30) mmol/L BUN 74 H (7-17) mg/dL Creatinine 1.8 H (0.6-1.2) mg/dL Glucose 231 H (65-100) mg/dL POC Glucose 153 H (70-105) mg/dL Calcium 10.6 H (8.4-10.2) mg/dL Urine Creatinine 61.2 H (0.1-20.0) mg/dL Urine Total Protein 32 H (5-11.8) mg/dL 04/21/21 04/21/21 04/22/21 Range/Units 19:44 19:50 00:02 Heparin Anti-Xa Level 0.92 H (0.3-0.7) U.I./ml Sodium 161 H* (137-145) mmol/L Potassium (3.6-5.0) mmol/L Chloride 131.2 H (98-107) mmol/L Carbon Dioxide 21 L (22-30) mmol/L BUN 70 H (7-17) mg/dL Creatinine 1.7 H (0.6-1.2) mg/dL Glucose 198 H (65-100) mg/dL POC Glucose 207 H (70-105) mg/dL Calcium 10.7 H (8.4-10.2) mg/dL Urine Creatinine (0.1-20.0) mg/dL Urine Total Protein (5-11.8) mg/dL 04/22/21 04/22/21 04/22/21 Range/Units 04:53 06:28 08:35 Heparin Anti-Xa Level (0.3-0.7) U.I./ml Sodium 160 H 156 H (137-145) mmol/L Potassium 3.4 L 3.3 L (3.6-5.0) mmol/L Chloride 127.7 H 126.3 H (98-107) mmol/L Carbon Dioxide 17 L 19 L (22-30) mmol/L BUN 53 H 48 H (7-17) mg/dL Creatinine 1.4 H 1.3 H (0.6-1.2) mg/dL Glucose 197 H 181 H (65-100) mg/dL POC Glucose 181 H (70-105) mg/dL Calcium 10.6 H (8.4-10.2) mg/dL Urine Creatinine (0.1-20.0) mg/dL Urine Total Protein (5-11.8) mg/dL 04/22/21 04/22/21 Range/Units 11:24 15:39 Heparin Anti-Xa Level (0.3-0.7) U.I./ml Sodium (137-145) mmol/L Potassium (3.6-5.0) mmol/L Chloride (98-107) mmol/L Carbon Dioxide (22-30) mmol/L BUN (7-17) mg/dL Creatinine (0.6-1.2) mg/dL Glucose (65-100) mg/dL POC Glucose 163 H 181 H (70-105) mg/dL Calcium (8.4-10.2) mg/dL Urine Creatinine (0.1-20.0) mg/dL Urine Total Protein (5-11.8) mg/dL HEART Score - HEART Score Troponin: Troponin T 0.031 ng/mL (0.00-0.029) H 04/20/21 08:26
[2021-04-23] MEDS: INSULIN LISPRO 100 UNIT/ML SUB-Q SCH ×4 (00:48→18:28)
[2021-04-23] MEDS: DEXTROSE 5% IN WATER 1,000 ML IV SCH ×3 (05:38→21:23)
[2021-04-23 05:39] LABS: Mean Corpuscular Volume 92 fl (79-97)
[2021-04-23] MEDS: HEPARIN 5,000 UNIT/1 ML VIAL SUB-Q SCH ×3 (05:39→21:17)
[2021-04-23 05:40] LABS: Calcium 8.9 mg/dL (8.4-10.2)
[2021-04-23 05:44] LABS: Hematocrit 29.4 % (30.3-42.9); Hemoglobin 9.4 gm/dl (10.1-14.3); Mean Corpuscular HGB Conc 32 % (30-34); Platelet Count 206 K/mm3 (140-440); Red Blood Count 3.19 M/mm3 (3.65-5.03); Red Cell Distribution Width 18.7 % (13.2-15.2)
--- NOTE | 2021-04-23 08:32 | Progress Note ---
Assessment and Plan - Patient Problems (1) Acute kidney failure Current Visit: Yes Status: Acute Plan to address problem: Prerenal azotemia versus acute tubular necrosis secondary to hypotension/sepsis. Patient may also have Superimposed drug induced nephropathy Meloxicam and or allopurinol. Urinalysis shows hematuria, pyuria and mild to moderate p roteinuria. Kidney function is improving. Continue volume repletion. Follow-up electrolytes and renal function. (2) Hypernatremia Current Visit: Yes Status: Acute Plan to address problem: Sodium is marginally. Continue Free water replacement parenterally by giving hypotonic fluids and also free water via nasogastric tube. Follow-up sodium (3) Metabolic acidosis Current Visit: Yes Status: Acute Plan to address problem: Uremic and possible lactic acidosis. Improving. Continue treatment of underlying conditions (4) Sepsis due to urinary tract infection Current Visit: Yes Status: Acute Plan to address problem: Follow-up cultures. Continue empiric antibiotics appropriately dosed to the degree of renal function (5) Hypotension Current Visit: Yes Status: Acute Plan to address problem: Improved with volume repletion. Follow blood pressure (6) Type 2 diabetes mellitus Current Visit: Yes Status: Acute Plan to address problem: Blood sugar management by primary attending. (7) Hypertension Current Visit: Yes Status: Acute Plan to address problem: Blood pressure was low on presentation. Follow-up blood pressure (8) Acute metabolic encephalopathy Current Visit: Yes Status: Acute Plan to address problem: Toxic versus metabolic encephalopathy. Patient was on Keppra and with was in renal function dose was now high and may have contributed to decreased mental status. Metabolic encephalopathy syndrome secondary to uremia and hypernatremia. Mental status improving. Follow-up mental status with correction of abnormalities Subjective Date of service: 04/23/21 Principal diagnosis: Acute kidney injury, sepsis Interval history: Patient seen lying in bed. She has no complaints. She is getting tube feeds and free water via the nasogastric tube Objective - Exam Narrative Exam: Frail elderly -[place] female lying in bed in no acute distress HEENT: NCAT, nasogastric tube intact Neck: Supple, no venous distention CVS: S1S2 RRR with no murmur, rub or gallop Chest: Clear to auscultation Abdomen: Protuberant, soft, nontender, no organomegaly, bowel sounds are present Extremities: No edema Skin warm and dry Neuro: Awake, alert no focal deficits - Vital Signs Vital signs: Vital Signs - 12hr 04/22/21 04/22/21 04/23/21 22:00 23:42 04:08 Temperature 98.5 F 97.9 F Pulse Rate 83 90 Respiratory 20 20 Rate Blood Pressure 137/75 127/56 O2 Sat by Pulse 94 97 96 Oximetry - Lab 04/23/21 04:04 04/23/21 04:04 Most recent lab results Calcium 8.9 mg/dL (8.4-10.2) 04/23/21 04:04 Phosphorus 5.20 mg/dL (2.5-4.5) H 04/20/21 08:26 Urine Creatinine 61.2 mg/dL (0.1-20.0) H 04/21/21 10:00 Urine Sodium 45 mmol/L 04/21/21 10:00 Urine Total Protein 32 mg/dL (5-11.8) H 04/21/21 10:00 Medications & Allergies - Medications Allergies/Adverse Reactions: Allergies No Known Allergies Allergy (Verified 03/15/21 10:30) Home Medications: Home Medications Medication Instructions Recorded Confirmed Last Taken Type Ferrous Sulfate [Iron 325 MG] 325 mg PO DAILY 03/17/21 03/17/21 Unknown History Lovastatin [Altoprev] 40 mg PO DAILY 03/17/21 03/17/21 Unknown History Meloxicam [Mobic] 7.5 mg DAILY 03/17/21 03/17/21 Unknown History Omeprazole 20 mg PO DAILY 03/17/21 03/17/21 Unknown History Sennosides [Senna] 40 mg PO DAILY 03/17/21 03/17/21 Unknown History Sitagliptin Phos/Metformin HCl tab DAILY 03/17/21 Unknown History [Janumet XR 50-1,000 mg] allopurinoL [Zyloprim] 300 mg PO QDAY 03/17/21 03/17/21 Unknown History amLODIPine 10 mg PO DAILY 03/17/21 03/17/21 Unknown History levETIRAcetam [Keppra TAB] 500 mg PO BID 03/17/21 03/17/21 Unknown History Aspirin [Adult Aspirin] 81 mg PO DAILY #30 tablet. 03/22/21 Unknown Rx Famotidine [Pepcid] 20 mg PO BID #60 tablet 03/22/21 Unknown Rx Linagliptin [Tradjenta] 5 mg PO QAMDIAB #30 tablet 03/22/21 Unknown Rx metFORMIN XR [Glucophage XR] 1,000 mg PO QDDIAB #60 tablet 03/22/21 Unknown Rx traMADoL [Ultram 50 MG tab] 225 mg PO Q6HR #20 03/22/21 Unknown Rx Active Medications: Generic Name Dose Route Start Last Admin Trade Name Freq PRN Reason Stop Dose Admin Acetaminophen 650 mg 04/20/21 02:16 Acetaminophen 650 Mg Rect Supp MT Q4H PRN Pain MILD(1-3)/Fever >100.5/FERRARI Albuterol 2.5 mg 04/20/21 02:16 Albuterol 2.5 Mg/3 Ml Nebu IH Q3HRT PRN Shortness Of Breath Lipase/Protease/Amylase 1 each 04/21/21 17:17 Lipase 10,500/Protease 25,000/Amylase 43,750 (Units) Cap FEEDTUBE PRN PRN For Clogged Feeding Tube Dextrose 50 ml 04/20/21 02:16 Dextrose 50% In Water (25gm) 50 Ml Syringe IV Q30MIN PRN Hypoglycemia Protocol Heparin Sodium (Porcine) 5,000 unit 04/21/21 22:00 04/23/21 05:39 Heparin 5,000 Unit/1 Ml Vial SUB-Q 5,000 unit Q8HR CONNIE Administration Dextrose 1,000 mls @ 100 mls/hr 04/20/21 03:00 04/23/21 05:38 D5w IV 100 mls/hr DIRECT CONNIE Administration Cefepime HCl 2 gm in 100 mls @ 200 mls/hr 04/20/21 12:00 04/22/21 09:36 Cefepime/Ns 2 Gm/100 Ml IV 04/24/21 10:29 200 mls/hr Q24HR CONNIE Administration Protocol Linezolid 600 mg in 300 mls @ 300 mls/hr 04/20/21 14:00 04/22/21 21:52 Zyvox 600mg/300ml IV 04/24/21 22:59 300 mls/hr Q12HR CONNIE Administration Protocol Insulin Human Lispro 0 unit 04/20/21 06:00 04/23/21 06:44 Insulin Lispro 100 Unit/Ml SUB-Q 2 unit Q6HR CONNIE Administration Protocol Ondansetron HCl 4 mg 04/20/21 02:16 Ondansetron 4 Mg/2 Ml Inj IV Q6H PRN Nausea And Vomiting Pantoprazole Sodium 40 mg 04/20/21 10:00 04/22/21 09:51 Pantoprazole 40 Mg Inj IV 40 mg QDAY CONNIE Administration Simple Syrup 30 ml 04/21/21 17:17 Simple Syrup 15 Ml FEEDTUBE PRN PRN Hypoglycemia Simple Syrup 15 ml 04/22/21 12:00 Simple Syrup 15 Ml FEEDTUBE PRN PRN Hypoglycemia Sodium Bicarbonate 325 mg 04/21/21 17:17 Sodium Bicarbonate 325 Mg Tab FEEDTUBE PRN PRN For Clogged Feeding Tube Sodium Chloride 10 ml 04/20/21 10:00 04/22/21 21:51 Sodium Chloride 0.9% 10 Ml Flush Syringe IV 10 ml BID CONNIE Administration Sodium Chloride 10 ml 04/20/21 02:16 Sodium Chloride 0.9% 10 Ml Flush Syringe IV PRN PRN LINE FLUSH
[2021-04-23] MEDS: LINEZOLID 600 MG/300 ML BAG IV SCH ×2 (09:08→21:17)
[2021-04-23] MEDS: PANTOPRAZOLE 40 MG INJ IV SCH (09:08)
[2021-04-23] MEDS: CEFEPIME/NS 2 GM/100 ML 2 GM/100 ML BAG IV SCH (09:08)
[2021-04-23 12:41] LABS: Anisocytosis 1+; Band Neutrophils # (Manual) 0.1 K/mm3; Macrocytosis Few; Platelet Estimate Consistent w Auto; Total Cells Counted 100
--- NOTE | 2021-04-23 14:01 | Progress Note ---
Assessment and Plan Sepsis -Source of infection includes pneumonia and UTI -Leukocytosis 11.8 -Tachycardia 104 -AMS -Lactic acid 2.4 -Start IVF and IV abx -Cultures pending Urinary tract infection -UA positive for UTI -urine wbc -Urine culture pending -on IV Abx Hypernatremia -Severe at 163 -Likely secondary to dehydration, poor oral intake -Neurochecks -Sodium checks -On D5W JIMMY -BUN/Cr on admission 158/6.1 (baseline 18/1.0 on 03/22/2021) -Hydrate with IVF -Monitor intake and output -Avoid nephrotoxic agents -Renal dose all meds -Monitor renal function -Nephrology consulted Pneumonia -CXR shows Increased interstitial prominence with lower lobe opacities -Blood Cultures pending -Start on IV Abx Acute metabolic encephalopathy -CT head negative acute abnormalities -Blood and urine cultures pending -Neuro checks -N.p.o. for now, will need swallow screen prior to initiating diet orders Elevated D-dimer -At 1413 -Patient unable to get CT angio due to renal function -noncontrast CT chest showed pneumonia, bilateral lower extremity Doppler, and VQ scan negative for DVT or PE Acute hypoxic respiratory failure -No Baseline home oxygen requirements -Saturation of 86% on room air -Currently on 4L supplemental oxygen with saturation of 97% -Monitor saturations -Continue supplemental oxygen wean as tolerated Elevated troponin -Likely due to elevated creatinine, will continue to trend -EKG unrevealing for acute ischemic abnormalities -?? Related to renal insufficiency, will obtain 2D echo DM -POC BG monitoring -SSI coverage prn History of hypertension -Presently normotensive/borderline hypotensive -We will hold antihypertensive meds for now, resume when appropriate History of recent fall with head contusion -Will need PT/OT eval and treat when more alert -Initiate fall precautions Suspected COVID-19 virus infection, ruled out with a negative test DVT PPX -on Heparin gtt Daily clinical course: 04/21/21: VQ scan showed low probability for PE, CT chest suggestive for bilateral PNA. Covid test is negative. Sodium level persistently elevated. Continue hypotonic fluid, monitor with serial BMP. Stop heparin drip. Follow clinically, guarded prognosis 04/22/21: Sodium level slightly improved, creatinine trended down. Off heparin drip. Initiated on tube feeding and patient is tolerating well. Mental status remains unchanged. Continue to follow clinically, follow BMP. 04/23/21; sodium level and creatinine improving, failed swallow eval. Consulted GI for PEG tube placement. Continue to follow clinically Subjective Date of service: 04/23/21 Principal diagnosis: Acute kidney injury, sepsis Interval history: Patient seen and examined Vitals noted, patient's mental status improved denies any acute issue Objective - Exam Narrative Exam: General appearance: NAD Eyes: anicteric sclerae, moist conjunctivae; no lid-lag; PERRLA HENT: Normocephalic, Atraumatic; normal external ears, nares open, oropharynx clear with moist mucous membranes and no oral thrush Neck: supple, tracheal midline, no JVD Lungs: Clear to auscultation bilaterally CV: RRR no murmur Abdomen: Soft, non-tender; no masses or hepatosplenomegaly Extremities: no edema, no cyanosis Skin: No rash. Psych: no agitated Neuro: follows commands - Constitutional Vitals: Vital Signs - 12hr 04/23/21 04/23/21 04:08 10:00 Temperature 97.9 F Pulse Rate 90 Respiratory 20 17 Rate Blood Pressure 127/56 O2 Sat by Pulse 96 95 Oximetry - Labs CBC & Chem 7: 04/28/21 05:43 04/27/21 05:48 Labs: Abnormal lab results 04/22/21 04/22/21 04/23/21 Range/Units 15:39 23:44 04:04 RBC 3.19 L (3.65-5.03) M/mm3 Hgb 9.4 L (10.1-14.3) gm/dl Hct 29.4 L D (30.3-42.9) % RDW 18.7 H (13.2-15.2) % Seg Neuts % (Manual) 81.0 H (40.0-70.0) % Seg Neutrophils # Man 8.5 H (1.8-7.7) K/mm3 Sodium (137-145) mmol/L Chloride (98-107) mmol/L Carbon Dioxide (22-30) mmol/L BUN (7-17) mg/dL Glucose (65-100) mg/dL POC Glucose 181 H 173 H (70-105) mg/dL 04/23/21 04/23/21 04/23/21 Range/Units 04:04 06:11 12:15 RBC (3.65-5.03) M/mm3 Hgb (10.1-14.3) gm/dl Hct (30.3-42.9) % RDW (13.2-15.2) % Seg Neuts % (Manual) (40.0-70.0) % Seg Neutrophils # Man (1.8-7.7) K/mm3 Sodium 146 H D (137-145) mmol/L Chloride 116.5 H (98-107) mmol/L Carbon Dioxide 21 L (22-30) mmol/L BUN 38 H (7-17) mg/dL Glucose 185 H (65-100) mg/dL POC Glucose 187 H 109 H (70-105) mg/dL HEART Score - HEART Score Troponin: Troponin T 0.031 ng/mL (0.00-0.029) H 04/20/21 08:26
--- NOTE | 2021-04-23 16:14 | Gastroenterology Consultation ---
History of Present Illness - Reason for Consult Consult date: 04/23/21 PEG Requesting physician: MARIA M AGUSTIN - History of Present Illness 86-year-old -[place] female who is a resident of [facility] nursing [facility] with history of hypertension, DM 2, gout, status post recent fall with head contusion who presented [facility] ED with complaints of altered mental status Speech Eval 04/21: Swallow function was assessed. Patient demonstrates an oral/pharyngeal phase dysphagia with delayed oral transit time and a swallow reflex of 18 seconds which places her at risk for aspiration.Recommend Dobhoff. Will continue to follow. GI is consulted because was per my conversation with , speech reevaluated patient today and she failed swallow study and therefore needs alternative means of nutrition Obtained/updated/reviewed patient's current medications Past History Past Medical History: diabetes (Type II), GERD, hypertension, stroke, other (Gout, head contusion, history of recent fall) Past Surgical History: No surgical history Social history: full code, other (Resident of [facility]). denies: smoking, alcohol abuse, prescription drug abuse, IV drug use Family history: no significant family history Medications and Allergies Allergies Allergy/AdvReac Type Severity Reaction Status Date / Time No Known Allergies Allergy Verified 03/15/21 10:30 Home Medications Medication Instructions Recorded Confirmed Last Taken Type Ferrous Sulfate [Iron 325 MG] 325 mg PO DAILY 03/17/21 03/17/21 Unknown History Lovastatin [Altoprev] 40 mg PO DAILY 03/17/21 03/17/21 Unknown History Meloxicam [Mobic] 7.5 mg DAILY 03/17/21 03/17/21 Unknown History Omeprazole 20 mg PO DAILY 03/17/21 03/17/21 Unknown History Sennosides [Senna] 40 mg PO DAILY 03/17/21 03/17/21 Unknown History Sitagliptin Phos/Metformin HCl tab DAILY 03/17/21 Unknown History [Janumet XR 50-1,000 mg] allopurinoL [Zyloprim] 300 mg PO QDAY 03/17/21 03/17/21 Unknown History amLODIPine 10 mg PO DAILY 03/17/21 03/17/21 Unknown History levETIRAcetam [Keppra TAB] 500 mg PO BID 03/17/21 03/17/21 Unknown History Aspirin [Adult Aspirin] 81 mg PO DAILY #30 tablet. 03/22/21 Unknown Rx Famotidine [Pepcid] 20 mg PO BID #60 tablet 03/22/21 Unknown Rx Linagliptin [Tradjenta] 5 mg PO QAMDIAB #30 tablet 03/22/21 Unknown Rx metFORMIN XR [Glucophage XR] 1,000 mg PO QDDIAB #60 tablet 03/22/21 Unknown Rx traMADoL [Ultram 50 MG tab] 225 mg PO Q6HR #20 03/22/21 Unknown Rx Active Meds: Active Medications Acetaminophen (Acetaminophen 650 Mg Rect Supp) 650 mg [place] Q4H PRN PRN Reason: Pain MILD(1-3)/Fever >100.5/FERRARI Albuterol (Albuterol 2.5 Mg/3 Ml Nebu) 2.5 mg IH Q3HRT PRN PRN Reason: Shortness Of Breath Lipase/Protease/Amylase (Lipase 10,500/Protease 25,000/Amylase 43,750 (Units) Dr Collier) 1 each FEEDTUBE PRN PRN PRN Reason: For Clogged Feeding Tube Dextrose (Dextrose 50% In Water (25gm) 50 Ml Syringe) 50 ml IV Q30MIN PRN; Protocol PRN Reason: Hypoglycemia Heparin Sodium (Porcine) (Heparin 5,000 Unit/1 Ml Vial) 5,000 unit SUB-Q Q8HR CONNIE Last Admin: 04/23/21 14:12 Dose: 5,000 unit Documented by: Dextrose (D5w) 1,000 mls @ 100 mls/hr IV DIRECT CONNIE Last Admin: 04/23/21 12:36 Dose: 100 mls/hr Documented by: Cefepime HCl (Cefepime/Ns 2 Gm/100 Ml) 2 gm in 100 mls @ 200 mls/hr IV Q24HR CONNIE; Protocol Stop: 04/24/21 10:29 Last Admin: 04/23/21 09:08 Dose: 200 mls/hr Documented by: Linezolid (Zyvox 600mg/300ml) 600 mg in 300 mls @ 300 mls/hr IV Q12HR CONNIE; Protocol Stop: 04/24/21 22:59 Last Admin: 04/23/21 09:08 Dose: 300 mls/hr Documented by: Insulin Human Lispro (Insulin Lispro 100 Unit/Ml) 0 unit SUB-Q Q6HR CONNIE; Protocol Last Admin: 04/23/21 12:19 Dose: Not Given Documented by: Ondansetron HCl (Ondansetron 4 Mg/2 Ml Inj) 4 mg IV Q6H PRN PRN Reason: Nausea And Vomiting Pantoprazole Sodium (Pantoprazole 40 Mg Inj) 40 mg IV QDAY [facility] Last Admin: 04/23/21 09:08 Dose: 40 mg Documented by: Simple Syrup (Simple Syrup 15 Ml) 30 ml FEEDTUBE PRN PRN PRN Reason: Hypoglycemia Simple Syrup (Simple Syrup 15 Ml) 15 ml FEEDTUBE PRN PRN PRN Reason: Hypoglycemia Sodium Bicarbonate (Sodium Bicarbonate 325 Mg Tab) 325 mg FEEDTUBE PRN PRN PRN Reason: For Clogged Feeding Tube Sodium Chloride (Sodium Chloride 0.9% 10 Ml Flush Syringe) 10 ml IV BID [facility] Last Admin: 04/23/21 09:09 Dose: 10 ml Documented by: Sodium Chloride (Sodium Chloride 0.9% 10 Ml Flush Syringe) 10 ml IV PRN PRN PRN Reason: LINE FLUSH Review of Systems - Review of Systems ROS unobtainable: due to mental status All systems: negative Exam - Constitutional Vital Signs: Temp Pulse Resp BP Pulse Ox 99.1 F 82 20 125/54 95 04/23/21 15:54 04/23/21 15:54 04/23/21 15:54 04/23/21 15:54 04/23/21 15:54 General appearance: no acute distress - EENT Eyes: EOM intact - Neck Neck: supple - Respiratory Respiratory effort: normal - Cardiovascular Rhythm: regular - Gastrointestinal General gastrointestinal: Present: soft, other (No scars) - Integumentary Integumentary: Present: dry - Neurologic Neurological: disoriented - Labs CBC & Chem 7: 04/23/21 04:04 04/23/21 04:04 Lab Results: Laboratory Results - last 24 hr 04/22/21 04/23/21 04/23/21 23:44 04:04 04:04 WBC 10.5 RBC 3.19 L Hgb 9.4 L Hct 29.4 L D MCV 92 MCH 30 MCHC 32 RDW 18.7 H Plt Count 206 Add Manual Diff Complete Total Counted 100 Seg Neuts % (Manual) 81.0 H Band Neutrophils % 1.0 Lymphocytes % (Manual) 14.0 Monocytes % (Manual) 1.0 Eosinophils % (Manual) 2.0 Metamyelocytes % 1.0 Nucleated RBC % Not Reportable Seg Neutrophils # Man 8.5 H Band Neutrophils # 0.1 Lymphocytes # (Manual) 1.5 Abs React Lymphs (Man) 0.0 Monocytes # (Manual) 0.1 Eosinophils # (Manual) 0.2 Basophils # (Manual) 0.0 Metamyelocytes # 0.1 Myelocytes # 0.0 Promyelocytes # 0.0 Blast Cells # 0.0 WBC Morphology Not Reportable Hypersegmented Neuts Not Reportable Hyposegmented Neuts Not Reportable Hypogranular Neuts Not Reportable Smudge Cells Not Reportable Toxic Granulation Not Reportable Toxic Vacuolation Not Reportable Dohle Bodies Not Reportable Pelger-Huet Anomaly Not Reportable Marina Rods Not Reportable Platelet Estimate Consistent w auto Clumped Platelets Not Reportable Plt Clumps, EDTA Not Reportable Large Platelets Not Reportable Giant Platelets Not Reportable Platelet Satelliting Not Reportable Plt Morphology Comment Not Reportable RBC Morphology Not Reportable Dimorphic RBCs Not Reportable Polychromasia Not Reportable Hypochromasia Not Reportable Poikilocytosis Not Reportable Anisocytosis 1+ Microcytosis Not Reportable Macrocytosis Few Spherocytes Not Reportable Pappenheimer Bodies Not Reportable Sickle Cells Not Reportable Target Cells Not Reportable Tear Drop Cells Not Reportable Ovalocytes Not Reportable Helmet Cells Not Reportable Martin-Reydon Bodies Not Reportable Jefferson Rings Not Reportable [place] Cells Not Reportable Bite Cells Not Reportable Crenated Cell Not Reportable Elliptocytes Not Reportable Acanthocytes (Spur) Not Reportable Rouleaux Not Reportable Hemoglobin C Crystals Not Reportable Schistocytes Not Reportable Malaria parasites Not Reportable Kevin Bodies Not Reportable Hem Pathologist Commnt No Sodium 146 H D Potassium 3.8 Chloride 116.5 H Carbon Dioxide 21 L Anion Gap 12 BUN 38 H Creatinine 1.2 Estimated GFR 52 BUN/Creatinine Ratio 32 Glucose 185 H POC Glucose 173 H Calcium 8.9 04/23/21 04/23/21 06:11 12:15 WBC RBC Hgb Hct MCV MCH MCHC RDW Plt Count Add Manual Diff Total Counted Seg Neuts % (Manual) Band Neutrophils % Lymphocytes % (Manual) Monocytes % (Manual) Eosinophils % (Manual) Metamyelocytes % Nucleated RBC % Seg Neutrophils # Man Band Neutrophils # Lymphocytes # (Manual) Abs React Lymphs (Man) Monocytes # (Manual) Eosinophils # (Manual) Basophils # (Manual) Metamyelocytes # Myelocytes # Promyelocytes # Blast Cells # WBC Morphology Hypersegmented Neuts Hyposegmented Neuts Hypogranular Neuts Smudge Cells Toxic Granulation Toxic Vacuolation Dohle Bodies Pelger-Huet Anomaly Marina Rods Platelet Estimate Clumped Platelets Plt Clumps, EDTA Large Platelets Giant Platelets Platelet Satelliting Plt Morphology Comment RBC Morphology Dimorphic RBCs Polychromasia Hypochromasia Poikilocytosis Anisocytosis Microcytosis Macrocytosis Spherocytes Pappenheimer Bodies Sickle Cells Target Cells Tear Drop Cells Ovalocytes Helmet Cells Martin-Reydon Bodies Jefferson Rings Deonte Cells Bite Cells Crenated Cell Elliptocytes Acanthocytes (Spur) Rouleaux Hemoglobin C Crystals Schistocytes Malaria parasites Kevin Bodies Hem Pathologist Commnt Sodium Potassium Chloride Carbon Dioxide Anion Gap BUN Creatinine Estimated GFR BUN/Creatinine Ratio Glucose POC Glucose 187 H 109 H Calcium Assessment and Plan I attempted to call the patient's son, Cristhian Braden, at [phone]. However it went straight to voicemail, left a message document that I tried to contact him Patient would be a reasonable candidate for PEG tube placement on Monday if family agrees - Patient Problems (1) Oropharyngeal dysphagia Current Visit: Yes Status: Acute
--- NOTE | 2021-04-23 18:45 | Progress Note ---
Assessment and Plan Cultures: Blood culture 04/19/2021 no growth today SARS CoV2 PCR negative Assessment: 86-year-old female with history of hypertension, diabetes mellitus, gout, recent falls with head contusion, resident of a nursing home facility, admitted on 04/19/2021 secondary to altered mental status/lethargy: #Severe sepsis: Improving; likely secondary to possible pneumonia and UTI. #Possible hospital-acquired pneumonia. SARS-CoV-2 PCR negative. Chest ray with bilateral increased interstitial markings. CT with left upper lobe density, eventration of the left hemidiaphragm. #UTI: Urinalysis with 166 WBCs and large leukocyte esterase. #Acute hypoxemic respiratory failure: On 2 L, no desaturations. #Elevated LFTs: from COVID #JIMMY: Likely secondary to sepsis. Improving. #Acute encephalopathy: Slightly better. Likely secondary to sepsis. #Hypernatremia: Per primary team/renal. Recommendations: -Follow-up blood cultures and urine cultures -Continue cefepime and Zyvox D4 of 5 -Check MRSA PCR pending -Monitor mentation All laboratory, cultures and imaging were reviewed Will follow Melissa Rogel MD Infectious Diseases [facility] ([facility]) M [phone] O [phone] Subjective Date of service: 04/23/21 Principal diagnosis: Acute kidney injury, sepsis Interval history: Patient is less somnolent today. Nonverbal. No fever. Objective - Exam Narrative Exam: General appearance: somnolent arousable Eyes: anicteric sclerae, moist conjunctivae; no lid-lag; PERRLA HENT: Normocephalic, Atraumatic; normal external ears, nares open, oropharynx limited NG tube in place Neck: supple, tracheal midline, no JVD Lungs: Clear to auscultation bilaterally CV: RRR no murmur Abdomen: Soft, nontender Extremities: no edema, no cyanosis Skin: No rash. Psych: no agitated Neuro: somnolent, follows commands - Constitutional Vitals: Vital Signs Temp Pulse Resp BP Pulse Ox 99.1 F 82 20 125/54 95 04/23/21 15:54 04/23/21 15:54 04/23/21 15:54 04/23/21 15:54 04/23/21 15:54 Temperature -Last 24 Hours Temperature 99.1 F Temperature 97.9 F Temperature 98.5 F Temperature 98.1 F - Labs CBC & Chem 7: 04/23/21 04:04 04/23/21 04:04 Labs: Abnormal lab results 04/22/21 04/23/21 04/23/21 Range/Units 23:44 04:04 04:04 RBC 3.19 L (3.65-5.03) M/mm3 Hgb 9.4 L (10.1-14.3) gm/dl Hct 29.4 L D (30.3-42.9) % RDW 18.7 H (13.2-15.2) % Seg Neuts % (Manual) 81.0 H (40.0-70.0) % Seg Neutrophils # Man 8.5 H (1.8-7.7) K/mm3 Sodium 146 H D (137-145) mmol/L Chloride 116.5 H (98-107) mmol/L Carbon Dioxide 21 L (22-30) mmol/L BUN 38 H (7-17) mg/dL Glucose 185 H (65-100) mg/dL POC Glucose 173 H (70-105) mg/dL 04/23/21 04/23/21 04/23/21 Range/Units 06:11 12:15 18:16 RBC (3.65-5.03) M/mm3 Hgb (10.1-14.3) gm/dl Hct (30.3-42.9) % RDW (13.2-15.2) % Seg Neuts % (Manual) (40.0-70.0) % Seg Neutrophils # Man (1.8-7.7) K/mm3 Sodium (137-145) mmol/L Chloride (98-107) mmol/L Carbon Dioxide (22-30) mmol/L BUN (7-17) mg/dL Glucose (65-100) mg/dL POC Glucose 187 H 109 H 260 H (70-105) mg/dL
[2021-04-24] MEDS: INSULIN LISPRO 100 UNIT/ML SUB-Q SCH ×4 (00:50→17:34)
[2021-04-24] MEDS: HEPARIN 5,000 UNIT/1 ML VIAL SUB-Q SCH ×3 (05:55→21:20)
[2021-04-24 06:31] LABS: Hematocrit 26.3 % (30.3-42.9); Hemoglobin 8.5 gm/dl (10.1-14.3); Mean Corpuscular HGB Conc 32 % (30-34); Mean Corpuscular Volume 91 fl (79-97); Platelet Count 164 K/mm3 (140-440); Red Blood Count 2.87 M/mm3 (3.65-5.03); Red Cell Distribution Width 18.1 % (13.2-15.2)
[2021-04-24 06:58] LABS: BUN/Creatinine Ratio TNR; Blood Urea Nitrogen TNR mg/dL (7-17); Calcium TNR mg/dL (8.4-10.2); Hemolysis Index TNR
[2021-04-24 08:49] LABS: Calcium 9.4 mg/dL (8.4-10.2)
[2021-04-24 09:20] LABS: Eosinophils # (Auto) 0.2 K/mm3 (0.0-0.4); Eosinophils % (Auto) 2.2 % (0.0-4.3); Monocytes # (Auto) 0.5 K/mm3 (0.0-0.8); Monocytes % (Auto) 5.5 % (0.0-7.3)
--- NOTE | 2021-04-24 09:39 | Gastroenterology Progress Note ---
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 She is awake in bed, and trying to converse. Purposeful movements, but does not pull the NG tube. Objective - Constitutional Vitals: Temp Pulse Resp BP Pulse Ox 97.7 F 80 18 147/67 97 04/24/21 07:28 04/24/21 07:28 04/24/21 07:28 04/24/21 07:28 04/24/21 07:28 General appearance: no acute distress - EENT Eyes: PERRL, EOM intact ENT: edentulous - Respiratory Respiratory effort: normal Respiratory: bilateral: CTA (NC O2) - Cardiovascular Rhythm: regular Heart Sounds: Present: S1 & S2 - Gastrointestinal General gastrointestinal: Present: soft, non-tender, non-distended - Labs CBC & Chem 7: 04/24/21 05:18 04/24/21 07:36 Labs: Laboratory Results - last 24 hr 04/23/21 04/23/21 04/23/21 04:04 12:15 18:16 WBC RBC Hgb Hct MCV MCH MCHC RDW Plt Count Winston % (Auto) Eos % (Auto) Winston # (Auto) Eos # (Auto) Baso # (Auto) Add Manual Diff Complete Total Counted 100 Seg Neutrophils % Seg Neuts % (Manual) 81.0 H Band Neutrophils % 1.0 Lymphocytes % (Manual) 14.0 Monocytes % (Manual) 1.0 Eosinophils % (Manual) 2.0 Metamyelocytes % 1.0 Nucleated RBC % Not Reportable Seg Neutrophils # Seg Neutrophils # Man 8.5 H Band Neutrophils # 0.1 Lymphocytes # (Manual) 1.5 Abs React Lymphs (Man) 0.0 Monocytes # (Manual) 0.1 Eosinophils # (Manual) 0.2 Basophils # (Manual) 0.0 Metamyelocytes # 0.1 Myelocytes # 0.0 Promyelocytes # 0.0 Blast Cells # 0.0 WBC Morphology Not Reportable Hypersegmented Neuts Not Reportable Hyposegmented Neuts Not Reportable Hypogranular Neuts Not Reportable Smudge Cells Not Reportable Toxic Granulation Not Reportable Toxic Vacuolation Not Reportable Dohle Bodies Not Reportable Pelger-Huet Anomaly Not Reportable Marina Rods Not Reportable Platelet Estimate Consistent w auto Clumped Platelets Not Reportable Plt Clumps, EDTA Not Reportable Large Platelets Not Reportable Giant Platelets Not Reportable Platelet Satelliting Not Reportable Plt Morphology Comment Not Reportable RBC Morphology Not Reportable Dimorphic RBCs Not Reportable Polychromasia Not Reportable Hypochromasia Not Reportable Poikilocytosis Not Reportable Anisocytosis 1+ Microcytosis Not Reportable Macrocytosis Few Spherocytes Not Reportable Pappenheimer Bodies Not Reportable Sickle Cells Not Reportable Target Cells Not Reportable Tear Drop Cells Not Reportable Ovalocytes Not Reportable Helmet Cells Not Reportable Martin-[place] Bodies Not Reportable [place] Rings Not Reportable Deonte Cells Not Reportable Bite Cells Not Reportable Crenated Cell Not Reportable Elliptocytes Not Reportable Acanthocytes (Spur) Not Reportable Rouleaux Not Reportable Hemoglobin C Crystals Not Reportable Schistocytes Not Reportable Malaria parasites Not Reportable Kevin Bodies Not Reportable Hem Pathologist Commnt No Sodium Potassium Chloride Carbon Dioxide Anion Gap BUN Creatinine Estimated GFR BUN/Creatinine Ratio Glucose POC Glucose 109 H 260 H Calcium 04/23/21 04/24/21 04/24/21 23:31 05:18 05:18 WBC 8.3 RBC 2.87 L Hgb 8.5 L Hct 26.3 L MCV 91 MCH 30 MCHC 32 RDW 18.1 H Plt Count 164 Winston % (Auto) 5.5 Eos % (Auto) 2.2 Winston # (Auto) 0.5 Eos # (Auto) 0.2 Baso # (Auto) 0.0 Add Manual Diff Total Counted Seg Neutrophils % 76.6 H Seg Neuts % (Manual) Band Neutrophils % Lymphocytes % (Manual) Monocytes % (Manual) Eosinophils % (Manual) Metamyelocytes % Nucleated RBC % Seg Neutrophils # 6.5 Seg Neutrophils # Man Band Neutrophils # Lymphocytes # (Manual) Abs React Lymphs (Man) Monocytes # (Manual) Eosinophils # (Manual) Basophils # (Manual) Metamyelocytes # Myelocytes # Promyelocytes # Blast Cells # WBC Morphology Hypersegmented Neuts Hyposegmented Neuts Hypogranular Neuts Smudge Cells Toxic Granulation Toxic Vacuolation Dohle Bodies Pelger-Huet Anomaly Marina Rods Platelet Estimate Clumped Platelets Plt Clumps, EDTA Large Platelets Giant Platelets Platelet Satelliting Plt Morphology Comment RBC Morphology Dimorphic RBCs Polychromasia Hypochromasia Poikilocytosis Anisocytosis Microcytosis Macrocytosis Spherocytes Pappenheimer Bodies Sickle Cells Target Cells Tear Drop Cells Ovalocytes Helmet Cells Martin-[place] Bodies [place] Rings Deonte Cells Bite Cells Crenated Cell Elliptocytes Acanthocytes (Spur) Rouleaux Hemoglobin C Crystals Schistocytes Malaria parasites Kevin Bodies Hem Pathologist Commnt Sodium TNR Potassium TNR Chloride TNR Carbon Dioxide TNR Anion Gap TNR BUN TNR Creatinine TNR Estimated GFR TNR BUN/Creatinine Ratio TNR Glucose TNR POC Glucose 222 H Calcium TNR 04/24/21 04/24/21 06:21 07:36 WBC RBC Hgb Hct MCV MCH MCHC RDW Plt Count [place] % (Auto) Eos % (Auto) Winston # (Auto) Eos # (Auto) Baso # (Auto) Add Manual Diff Total Counted Seg Neutrophils % Seg Neuts % (Manual) Band Neutrophils % Lymphocytes % (Manual) Monocytes % (Manual) Eosinophils % (Manual) Metamyelocytes % Nucleated RBC % Seg Neutrophils # Seg Neutrophils # Man Band Neutrophils # Lymphocytes # (Manual) Abs React Lymphs (Man) Monocytes # (Manual) Eosinophils # (Manual) Basophils # (Manual) Metamyelocytes # Myelocytes # Promyelocytes # Blast Cells # WBC Morphology Hypersegmented Neuts Hyposegmented Neuts Hypogranular Neuts Smudge Cells Toxic Granulation Toxic Vacuolation Dohle Bodies Pelger-Huet Anomaly Marina Rods Platelet Estimate Clumped Platelets Plt Clumps, EDTA Large Platelets Giant Platelets Platelet Satelliting Plt Morphology Comment RBC Morphology Dimorphic RBCs Polychromasia Hypochromasia Poikilocytosis Anisocytosis Microcytosis Macrocytosis Spherocytes Pappenheimer Bodies Sickle Cells Target Cells Tear Drop Cells Ovalocytes Helmet Cells Martin-[place] Bodies [place] Rings Deonte Cells Bite Cells Crenated Cell Elliptocytes Acanthocytes (Spur) Rouleaux Hemoglobin C Crystals Schistocytes Malaria parasites Kevin Bodies Hem Pathologist Commnt Sodium 142 Potassium 4.2 Chloride 110.1 H Carbon Dioxide 20 L Anion Gap 16 BUN 31 H Creatinine 1.2 Estimated GFR 52 BUN/Creatinine Ratio 26 Glucose 222 H POC Glucose 216 H Calcium 9.4
[2021-04-24] MEDS: CEFEPIME/NS 2 GM/100 ML 2 GM/100 ML BAG IV SCH (09:40)
[2021-04-24] MEDS: PANTOPRAZOLE 40 MG INJ IV SCH (09:40)
[2021-04-24] MEDS: LINEZOLID 600 MG/300 ML BAG IV SCH (10:13)
[2021-04-24 11:00] LABS: Total Cells Counted 100
[2021-04-24 11:01] LABS: Target Cells Few; Tear Drop Cells Few
[2021-04-24 11:02] LABS: Platelet Estimate Consistent w Auto
--- NOTE | 2021-04-24 11:07 | Progress Note ---
Assessment and Plan - Patient Problems (1) Acute kidney injury Current Visit: Yes Status: Acute Plan to address problem: Prerenal azotemia versus acute tubular necrosis secondary to hypotension/sepsis. Patient may also have Superimposed drug induced nephropathy Meloxicam and or allopurinol. Urinalysis shows hematuria, pyuria and mild to moderate p roteinuria. Kidney function is improving. Continue volume repletion. Follow-up electrolytes and renal function. (2) Hypernatremia Current Visit: Yes Status: Acute Plan to address problem: Sodium improving on D5W. Continue Free water replacement parenterally by giving hypotonic fluids and also free water via nasogastric tube. (3) Metabolic acidosis Current Visit: Yes Status: Acute Plan to address problem: Uremic and possible lactic acidosis. Improving. Continue treatment of underlying conditions (4) Type 2 diabetes mellitus Current Visit: Yes Status: Chronic Plan to address problem: Blood sugar management by primary attending. (5) Sepsis due to urinary tract infection Current Visit: Yes Status: Acute Plan to address problem: Follow-up cultures. Continue empiric antibiotics appropriately dosed to the degree of renal function (6) Acute metabolic encephalopathy Current Visit: Yes Status: Acute Plan to address problem: Toxic versus metabolic encephalopathy. Patient was on Keppra and with was in renal function dose was now high and may have contributed to decreased mental status. Metabolic encephalopathy syndrome secondary to uremia and hypernatremia. Mental status improving. Follow-up mental status with correction of abnormalities Subjective Date of service: 04/24/21 Principal diagnosis: Neurogenic Dysphagia Interval history: Pt lethargic, in no acute respiratory distress Objective - Vital Signs Vital signs: Vital Signs - 12hr 04/23/21 04/24/21 04/24/21 23:09 03:38 07:28 Temperature 100.0 F H 99.8 F H 97.7 F Pulse Rate 85 91 H 80 Respiratory 18 19 18 Rate Blood Pressure 110/50 139/61 147/67 O2 Sat by Pulse 100 96 97 Oximetry 04/24/21 10:00 Temperature Pulse Rate Respiratory 17 Rate Blood Pressure O2 Sat by Pulse 95 Oximetry - General Appearance General appearance: appears stated age, frail EENT: ATNC, PERRL, mucous membranes dry Neck: no JVD Respiratory: Present: Clear to Ascultation Cardiology: regular, S1S2 Gastrointestinal: normoactive bowel sounds Integumentary: no rash Neurologic: no focal deficit - Lab 04/24/21 05:18 04/24/21 07:36 Most recent lab results Calcium 9.4 mg/dL (8.4-10.2) 04/24/21 07:36 Phosphorus 5.20 mg/dL (2.5-4.5) H 04/20/21 08:26 Urine Creatinine 61.2 mg/dL (0.1-20.0) H 04/21/21 10:00 Urine Sodium 45 mmol/L 04/21/21 10:00 Urine Total Protein 32 mg/dL (5-11.8) H 04/21/21 10:00 Medications & Allergies - Medications Allergies/Adverse Reactions: Allergies No Known Allergies Allergy (Verified 03/15/21 10:30) Home Medications: Home Medications Medication Instructions Recorded Confirmed Last Taken Type Ferrous Sulfate [Iron 325 MG] 325 mg PO DAILY 03/17/21 03/17/21 Unknown History Lovastatin [Altoprev] 40 mg PO DAILY 03/17/21 03/17/21 Unknown History Meloxicam [Mobic] 7.5 mg DAILY 03/17/21 03/17/21 Unknown History Omeprazole 20 mg PO DAILY 03/17/21 03/17/21 Unknown History Sennosides [Senna] 40 mg PO DAILY 03/17/21 03/17/21 Unknown History Sitagliptin Phos/Metformin HCl tab DAILY 03/17/21 Unknown History [Janumet XR 50-1,000 mg] allopurinoL [Zyloprim] 300 mg PO QDAY 03/17/21 03/17/21 Unknown History amLODIPine 10 mg PO DAILY 03/17/21 03/17/21 Unknown History levETIRAcetam [Keppra TAB] 500 mg PO BID 03/17/21 03/17/21 Unknown History Aspirin [Adult Aspirin] 81 mg PO DAILY #30 tablet. 03/22/21 Unknown Rx Famotidine [Pepcid] 20 mg PO BID #60 tablet 03/22/21 Unknown Rx Linagliptin [Tradjenta] 5 mg PO QAMDIAB #30 tablet 03/22/21 Unknown Rx metFORMIN XR [Glucophage XR] 1,000 mg PO QDDIAB #60 tablet 03/22/21 Unknown Rx traMADoL [Ultram 50 MG tab] 225 mg PO Q6HR #20 03/22/21 Unknown Rx Active Medications: Generic Name Dose Route Start Last Admin Trade Name Freq PRN Reason Stop Dose Admin Acetaminophen 650 mg 04/20/21 02:16 Acetaminophen 650 Mg Rect Supp [place] Q4H PRN Pain MILD(1-3)/Fever >100.5/FERRARI Albuterol 2.5 mg 04/20/21 02:16 Albuterol 2.5 Mg/3 Ml Nebu IH Q3HRT PRN Shortness Of Breath Lipase/Protease/Amylase 1 each 04/21/21 17:17 Lipase 10,500/Protease 25,000/Amylase 43,750 (Units) Dr Nando FEEDTUBE PRN PRN For Clogged Feeding Tube Dextrose 50 ml 04/20/21 02:16 Dextrose 50% In Water (25gm) 50 Ml Syringe IV Q30MIN PRN Hypoglycemia Protocol Heparin Sodium (Porcine) 5,000 unit 04/21/21 22:00 04/24/21 05:55 Heparin 5,000 Unit/1 Ml Vial SUB-Q 5,000 unit Q8HR CONNIE Administration Dextrose 1,000 mls @ 100 mls/hr 04/20/21 03:00 04/23/21 21:23 D5w IV 100 mls/hr DIRECT CONNIE Administration Linezolid 600 mg in 300 mls @ 300 mls/hr 04/20/21 14:00 04/24/21 10:13 Zyvox 600mg/300ml IV 04/24/21 22:59 300 mls/hr Q12HR CONNIE Administration Protocol Insulin Human Lispro 0 unit 04/20/21 06:00 04/24/21 06:26 Insulin Lispro 100 Unit/Ml SUB-Q 3 unit Q6HR CONNIE Administration Protocol Ondansetron HCl 4 mg 04/20/21 02:16 Ondansetron 4 Mg/2 Ml Inj IV Q6H PRN Nausea And Vomiting Pantoprazole Sodium 40 mg 04/20/21 10:00 04/24/21 09:40 Pantoprazole 40 Mg Inj IV 40 mg QDAY CONNIE Administration Simple Syrup 30 ml 04/21/21 17:17 Simple Syrup 15 Ml FEEDTUBE PRN PRN Hypoglycemia Simple Syrup 15 ml 04/22/21 12:00 Simple Syrup 15 Ml FEEDTUBE PRN PRN Hypoglycemia Sodium Bicarbonate 325 mg 04/21/21 17:17 Sodium Bicarbonate 325 Mg Tab FEEDTUBE PRN PRN For Clogged Feeding Tube Sodium Chloride 10 ml 04/20/21 10:00 04/24/21 09:41 Sodium Chloride 0.9% 10 Ml Flush Syringe IV 10 ml BID CONNIE Administration Sodium Chloride 10 ml 04/20/21 02:16 Sodium Chloride 0.9% 10 Ml Flush Syringe IV PRN PRN LINE FLUSH
--- NOTE | 2021-04-24 16:56 | Progress Note ---
Assessment and Plan Sepsis -Source of infection includes pneumonia and UTI -Leukocytosis 11.8 -Tachycardia 104 -AMS -Lactic acid 2.4 -Start IVF and IV abx -Cultures pending Urinary tract infection -UA positive for UTI -urine wbc -Urine culture pending -on IV Abx Hypernatremia -Severe at 163 -Likely secondary to dehydration, poor oral intake -Neurochecks -Sodium checks -On D5W JIMMY -BUN/Cr on admission 158/6.1 (baseline 18/1.0 on 03/22/2021) -Hydrate with IVF -Monitor intake and output -Avoid nephrotoxic agents -Renal dose all meds -Monitor renal function -Nephrology consulted Pneumonia -CXR shows Increased interstitial prominence with lower lobe opacities -Blood Cultures pending -Start on IV Abx Acute metabolic encephalopathy -CT head negative acute abnormalities -Blood and urine cultures pending -Neuro checks -N.p.o. for now, will need swallow screen prior to initiating diet orders Elevated D-dimer -At 1413 -Patient unable to get CT angio due to renal function -noncontrast CT chest showed pneumonia, bilateral lower extremity Doppler, and VQ scan negative for DVT or PE Acute hypoxic respiratory failure -No Baseline home oxygen requirements -Saturation of 86% on room air -Currently on 4L supplemental oxygen with saturation of 97% -Monitor saturations -Continue supplemental oxygen wean as tolerated Elevated troponin -Likely due to elevated creatinine, will continue to trend -EKG unrevealing for acute ischemic abnormalities -?? Related to renal insufficiency, will obtain 2D echo DM -POC BG monitoring -SSI coverage prn History of hypertension -Presently normotensive/borderline hypotensive -We will hold antihypertensive meds for now, resume when appropriate History of recent fall with head contusion -Will need PT/OT eval and treat when more alert -Initiate fall precautions Suspected COVID-19 virus infection, ruled out with a negative test DVT PPX -on Heparin gtt Daily clinical course: 04/21/21: VQ scan showed low probability for PE, CT chest suggestive for bilateral PNA. Covid test is negative. Sodium level persistently elevated. Continue hypotonic fluid, monitor with serial BMP. Stop heparin drip. Follow clinically, guarded prognosis 04/22/21: Sodium level slightly improved, creatinine trended down. Off heparin drip. Initiated on tube feeding and patient is tolerating well. Mental status remains unchanged. Continue to follow clinically, follow BMP. 04/23/21; sodium level and creatinine improving, failed swallow eval. Consulted GI for PEG tube placement. Continue to follow clinically 04/24/21: pending PEG, cont TF, follow BMP, Cr and Na normal today Subjective Date of service: 04/24/21 Principal diagnosis: Neurogenic Dysphagia Interval history: Patient seen and examined Vitals noted, patient's mental status improved tolerated TF denies any acute issue Objective - Exam Narrative Exam: General appearance: NAD Eyes: anicteric sclerae, moist conjunctivae; no lid-lag; PERRLA HENT: Normocephalic, Atraumatic; normal external ears, nares open, oropharynx clear with moist mucous membranes and no oral thrush Neck: supple, tracheal midline, no JVD Lungs: Clear to auscultation bilaterally CV: RRR no murmur Abdomen: Soft, non-tender; no masses or hepatosplenomegaly Extremities: no edema, no cyanosis Skin: No rash. Psych: no agitated Neuro: follows commands - Constitutional Vitals: Vital Signs - 12hr 04/24/21 04/24/21 04/24/21 07:28 10:00 11:54 Temperature 97.7 F 97.7 F Pulse Rate 80 83 Respiratory 18 17 18 Rate Blood Pressure 147/67 139/72 O2 Sat by Pulse 97 95 100 Oximetry 04/24/21 16:19 Temperature 97.9 F Pulse Rate 78 Respiratory 18 Rate Blood Pressure 140/72 O2 Sat by Pulse 99 Oximetry - Labs CBC & Chem 7: 04/28/21 05:43 04/27/21 05:48 Labs: Abnormal lab results 04/23/21 04/23/21 04/24/21 Range/Units 18:16 23:31 05:18 RBC 2.87 L (3.65-5.03) M/mm3 Hgb 8.5 L (10.1-14.3) gm/dl Hct 26.3 L (30.3-42.9) % RDW 18.1 H (13.2-15.2) % Seg Neutrophils % 76.6 H (40.0-70.0) % Seg Neuts % (Manual) 84.0 H (40.0-70.0) % Lymphocytes % (Manual) 8.0 L (13.4-35.0) % Lymphocytes # (Manual) 0.7 L (1.2-5.4) K/mm3 Chloride (98-107) mmol/L Carbon Dioxide (22-30) mmol/L BUN (7-17) mg/dL Glucose (65-100) mg/dL POC Glucose 260 H 222 H (70-105) mg/dL 04/24/21 04/24/21 04/24/21 Range/Units 06:21 07:36 11:16 RBC (3.65-5.03) M/mm3 Hgb (10.1-14.3) gm/dl Hct (30.3-42.9) % RDW (13.2-15.2) % Seg Neutrophils % (40.0-70.0) % Seg Neuts % (Manual) (40.0-70.0) % Lymphocytes % (Manual) (13.4-35.0) % Lymphocytes # (Manual) (1.2-5.4) K/mm3 Chloride 110.1 H (98-107) mmol/L Carbon Dioxide 20 L (22-30) mmol/L BUN 31 H (7-17) mg/dL Glucose 222 H (65-100) mg/dL POC Glucose 216 H 223 H (70-105) mg/dL 04/24/21 Range/Units 16:07 RBC (3.65-5.03) M/mm3 Hgb (10.1-14.3) gm/dl Hct (30.3-42.9) % RDW (13.2-15.2) % Seg Neutrophils % (40.0-70.0) % Seg Neuts % (Manual) (40.0-70.0) % Lymphocytes % (Manual) (13.4-35.0) % Lymphocytes # (Manual) (1.2-5.4) K/mm3 Chloride (98-107) mmol/L Carbon Dioxide (22-30) mmol/L BUN (7-17) mg/dL Glucose (65-100) mg/dL POC Glucose 171 H (70-105) mg/dL HEART Score - HEART Score Troponin: Troponin T 0.031 ng/mL (0.00-0.029) H 04/20/21 08:26
[2021-04-25] MEDS: DEXTROSE 5% IN WATER 1,000 ML IV SCH ×2 (03:16→15:48)
[2021-04-25] MEDS: LINEZOLID 600 MG/300 ML BAG IV SCH (03:27)
[2021-04-25 05:45] LABS: BUN/Creatinine Ratio 21; Blood Urea Nitrogen 21 mg/dL (7-17); Calcium 9.2 mg/dL (8.4-10.2); Hemolysis Index 7
[2021-04-25] MEDS: INSULIN LISPRO 100 UNIT/ML SUB-Q SCH ×4 (05:50→17:50)
[2021-04-25] MEDS: HEPARIN 5,000 UNIT/1 ML VIAL SUB-Q SCH ×3 (05:50→22:08)
[2021-04-25] MEDS: PANTOPRAZOLE 40 MG INJ IV SCH (09:01)
[2021-04-25] MEDS ORDERED: LANSOPRAZOLE 30 MG SOLUTAB FEEDTUBE SCH (10:00)
--- NOTE | 2021-04-25 10:47 | Progress Note ---
Assessment and Plan - Patient Problems (1) Acute kidney injury Current Visit: Yes Status: Acute Plan to address problem: Prerenal azotemia versus acute tubular necrosis secondary to hypotension/sepsis. Patient may also have Superimposed drug induced nephropathy Meloxicam and or allopurinol. Urinalysis shows hematuria, pyuria and mild to moderate p roteinuria. Kidney function is improving. Continue volume repletion. Follow-up electrolytes and renal function. (2) Hypernatremia Current Visit: Yes Status: Acute Plan to address problem: resolved (3) Metabolic acidosis Current Visit: Yes Status: Acute Plan to address problem: Uremic and possible lactic acidosis. Improving. Continue treatment of underlying conditions (4) Type 2 diabetes mellitus Current Visit: Yes Status: Chronic Plan to address problem: Blood sugar management by primary attending. (5) Sepsis due to urinary tract infection Current Visit: Yes Status: Acute Plan to address problem: Follow-up cultures. Continue empiric antibiotics appropriately dosed to the degree of renal function (6) Acute metabolic encephalopathy Current Visit: Yes Status: Acute Plan to address problem: Toxic versus metabolic encephalopathy. Patient was on Keppra and with was in renal function dose was now high and may have contributed to decreased mental status. Metabolic encephalopathy syndrome secondary to uremia and hypernatremia. Mental status improving. Follow-up mental status with correction of abnormalities Subjective Date of service: 04/25/21 Principal diagnosis: Neurogenic Dysphagia Interval history: Pt lethargic, in no acute respiratory distress Objective - Vital Signs Vital signs: Vital Signs - 12hr 04/24/21 04/25/21 04/25/21 23:04 03:21 08:11 Temperature 98.6 F 98.9 F 98.8 F Pulse Rate 81 86 81 Respiratory 16 16 18 Rate Blood Pressure 135/69 156/69 146/70 O2 Sat by Pulse 99 99 99 Oximetry - General Appearance General appearance: well-developed, well-nourished, appears stated age EENT: ATNC, PERRL, mucous membranes moist Neck: no JVD Respiratory: Present: Clear to Ascultation Cardiology: regular, S1S2 Gastrointestinal: normoactive bowel sounds Integumentary: no rash Neurologic: no focal deficit - Lab 04/24/21 05:18 04/25/21 04:47 Most recent lab results Calcium 9.2 mg/dL (8.4-10.2) 04/25/21 04:47 Phosphorus 5.20 mg/dL (2.5-4.5) H 04/20/21 08:26 Urine Creatinine 61.2 mg/dL (0.1-20.0) H 04/21/21 10:00 Urine Sodium 45 mmol/L 04/21/21 10:00 Urine Total Protein 32 mg/dL (5-11.8) H 04/21/21 10:00 Medications & Allergies - Medications Allergies/Adverse Reactions: Allergies No Known Allergies Allergy (Verified 03/15/21 10:30) Home Medications: Home Medications Medication Instructions Recorded Confirmed Last Taken Type Ferrous Sulfate [Iron 325 MG] 325 mg PO DAILY 03/17/21 03/17/21 Unknown History Lovastatin [Altoprev] 40 mg PO DAILY 03/17/21 03/17/21 Unknown History Meloxicam [Mobic] 7.5 mg DAILY 03/17/21 03/17/21 Unknown History Omeprazole 20 mg PO DAILY 03/17/21 03/17/21 Unknown History Sennosides [Senna] 40 mg PO DAILY 03/17/21 03/17/21 Unknown History Sitagliptin Phos/Metformin HCl tab DAILY 03/17/21 Unknown History [Janumet XR 50-1,000 mg] allopurinoL [Zyloprim] 300 mg PO QDAY 03/17/21 03/17/21 Unknown History amLODIPine 10 mg PO DAILY 03/17/21 03/17/21 Unknown History levETIRAcetam [Keppra TAB] 500 mg PO BID 03/17/21 03/17/21 Unknown History Aspirin [Adult Aspirin] 81 mg PO DAILY #30 tablet. 03/22/21 Unknown Rx Famotidine [Pepcid] 20 mg PO BID #60 tablet 03/22/21 Unknown Rx Linagliptin [Tradjenta] 5 mg PO QAMDIAB #30 tablet 03/22/21 Unknown Rx metFORMIN XR [Glucophage XR] 1,000 mg PO QDDIAB #60 tablet 03/22/21 Unknown Rx traMADoL [Ultram 50 MG tab] 225 mg PO Q6HR #20 03/22/21 Unknown Rx Active Medications: Generic Name Dose Route Start Last Admin Trade Name Freq PRN Reason Stop Dose Admin Acetaminophen 650 mg 04/20/21 02:16 Acetaminophen 650 Mg Rect Supp [place] Q4H PRN Pain MILD(1-3)/Fever >100.5/FERRARI Albuterol 2.5 mg 04/20/21 02:16 Albuterol 2.5 Mg/3 Ml Nebu IH Q3HRT PRN Shortness Of Breath Lipase/Protease/Amylase 1 each 04/21/21 17:17 Lipase 10,500/Protease 25,000/Amylase 43,750 (Units) Dr Cap FEEDTUBE PRN PRN For Clogged Feeding Tube Dextrose 50 ml 04/20/21 02:16 Dextrose 50% In Water (25gm) 50 Ml Syringe IV Q30MIN PRN Hypoglycemia Protocol Heparin Sodium (Porcine) 5,000 unit 04/21/21 22:00 04/25/21 05:50 Heparin 5,000 Unit/1 Ml Vial SUB-Q 5,000 unit Q8HR CONNIE Administration Dextrose 1,000 mls @ 100 mls/hr 04/20/21 03:00 04/25/21 03:16 D5w IV 100 mls/hr DIRECT CONNIE Administration Insulin Human Lispro 0 unit 04/20/21 06:00 04/25/21 05:50 Insulin Lispro 100 Unit/Ml SUB-Q 3 unit Q6HR CONNIE Administration Protocol Ondansetron HCl 4 mg 04/20/21 02:16 Ondansetron 4 Mg/2 Ml Inj IV Q6H PRN Nausea And Vomiting Pantoprazole Sodium 40 mg 04/25/21 10:00 04/25/21 09:01 Pantoprazole 40 Mg Inj IV 40 mg QDAY CONNIE Administration Simple Syrup 30 ml 04/21/21 17:17 Simple Syrup 15 Ml FEEDTUBE PRN PRN Hypoglycemia Simple Syrup 15 ml 04/22/21 12:00 Simple Syrup 15 Ml FEEDTUBE PRN PRN Hypoglycemia Sodium Bicarbonate 325 mg 04/21/21 17:17 Sodium Bicarbonate 325 Mg Tab FEEDTUBE PRN PRN For Clogged Feeding Tube Sodium Chloride 10 ml 04/20/21 10:00 04/25/21 09:01 Sodium Chloride 0.9% 10 Ml Flush Syringe IV 10 ml BID CONNIE Administration Sodium Chloride 10 ml 04/20/21 02:16 Sodium Chloride 0.9% 10 Ml Flush Syringe IV PRN PRN LINE FLUSH
--- NOTE | 2021-04-25 14:14 | Gastroenterology Progress Note ---
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 - I left a VM for the patient's son Mr Cristhian Braden to get consent for the procedure; I will make the patient NPO after Mn in case we are able to get consent, and con proceed tomorrow. Subjective Date of service: 04/25/21 Principal diagnosis: Neurogenic Dysphagia Interval history: The patient is at goal on her tube feeds, and has no complaints. Her mental status is brighter today though unable to converse. Objective - Constitutional Vitals: Temp Pulse Resp BP Pulse Ox 98.4 F 79 18 144/56 96 04/25/21 11:40 04/25/21 11:40 04/25/21 11:40 04/25/21 11:40 04/25/21 11:40 General appearance: no acute distress - EENT ENT: other (NG tube with tube feeds infusing.) - Respiratory Respiratory effort: normal Respiratory: bilateral: CTA - Cardiovascular Rhythm: regular Heart Sounds: Present: S1 & S2 - Gastrointestinal General gastrointestinal: Present: soft, non-tender, non-distended - Labs CBC & Chem 7: 04/24/21 05:18 04/25/21 04:47 Labs: Laboratory Results - last 24 hr 04/24/21 04/24/21 04/25/21 16:07 23:44 04:47 Sodium 144 Potassium 3.9 Chloride 111.0 H Carbon Dioxide 24 Anion Gap 13 BUN 21 H Creatinine 1.0 Estimated GFR > 60 BUN/Creatinine Ratio 21 Glucose 226 H POC Glucose 171 H 193 H Calcium 9.2 04/25/21 04/25/21 05:24 11:39 Sodium Potassium Chloride Carbon Dioxide Anion Gap BUN Creatinine Estimated GFR BUN/Creatinine Ratio Glucose POC Glucose 207 H 227 H Calcium
--- NOTE | 2021-04-25 15:51 | Progress Note ---
Assessment and Plan Sepsis -Source of infection includes pneumonia and UTI -Leukocytosis 11.8 -Tachycardia 104 -AMS -Lactic acid 2.4 -Start IVF and IV abx -Cultures pending Urinary tract infection -UA positive for UTI -urine wbc -Urine culture pending -on IV Abx Hypernatremia -Severe at 163 -Likely secondary to dehydration, poor oral intake -Neurochecks -Sodium checks -On D5W JIMMY -BUN/Cr on admission 158/6.1 (baseline 18/1.0 on 03/22/2021) -Hydrate with IVF -Monitor intake and output -Avoid nephrotoxic agents -Renal dose all meds -Monitor renal function -Nephrology consulted Pneumonia -CXR shows Increased interstitial prominence with lower lobe opacities -Blood Cultures pending -Start on IV Abx Acute metabolic encephalopathy -CT head negative acute abnormalities -Blood and urine cultures pending -Neuro checks -N.p.o. for now, will need swallow screen prior to initiating diet orders Elevated D-dimer -At 1413 -Patient unable to get CT angio due to renal function -noncontrast CT chest showed pneumonia, bilateral lower extremity Doppler, and VQ scan negative for DVT or PE Acute hypoxic respiratory failure -No Baseline home oxygen requirements -Saturation of 86% on room air -Currently on 4L supplemental oxygen with saturation of 97% -Monitor saturations -Continue supplemental oxygen wean as tolerated Elevated troponin -Likely due to elevated creatinine, will continue to trend -EKG unrevealing for acute ischemic abnormalities -?? Related to renal insufficiency, will obtain 2D echo DM -POC BG monitoring -SSI coverage prn History of hypertension -Presently normotensive/borderline hypotensive -We will hold antihypertensive meds for now, resume when appropriate History of recent fall with head contusion -Will need PT/OT eval and treat when more alert -Initiate fall precautions Suspected COVID-19 virus infection, ruled out with a negative test DVT PPX -on Heparin gtt Daily clinical course: 04/21/21: VQ scan showed low probability for PE, CT chest suggestive for bilateral PNA. Covid test is negative. Sodium level persistently elevated. Continue hypotonic fluid, monitor with serial BMP. Stop heparin drip. Follow clinically, guarded prognosis 04/22/21: Sodium level slightly improved, creatinine trended down. Off heparin drip. Initiated on tube feeding and patient is tolerating well. Mental status remains unchanged. Continue to follow clinically, follow BMP. 04/23/21; sodium level and creatinine improving, failed swallow eval. Consulted GI for PEG tube placement. Continue to follow clinically 04/24/21: pending PEG, cont TF, follow BMP, Cr and Na normal today 04/25/21. Plan for PEG tube placement tomorrow, continue to follow BMP and continue tube feeding Subjective Date of service: 04/25/21 Principal diagnosis: Neurogenic Dysphagia Interval history: Patient seen and examined Vitals noted, patient's mental status improved tolerated TF denies any acute issue Objective - Exam Narrative Exam: General appearance: NAD Eyes: anicteric sclerae, moist conjunctivae; no lid-lag; PERRLA HENT: Normocephalic, Atraumatic; normal external ears, nares open, oropharynx clear with moist mucous membranes Neck: supple, tracheal midline, no JVD Lungs: Clear to auscultation bilaterally CV: RRR no murmur Abdomen: Soft, non-tender; no masses or hepatosplenomegaly Extremities: no edema, no cyanosis Skin: No rash. Psych: no agitated Neuro: follows commands - Constitutional Vitals: Vital Signs - 12hr 04/25/21 04/25/21 04/25/21 08:11 10:00 11:40 Temperature 98.8 F 98.4 F Pulse Rate 81 79 Respiratory 18 18 18 Rate Blood Pressure 146/70 144/56 O2 Sat by Pulse 99 98 96 Oximetry - Labs CBC & Chem 7: 04/28/21 05:43 04/27/21 05:48 Labs: Abnormal lab results 04/24/21 04/24/21 04/25/21 Range/Units 16:07 23:44 04:47 Chloride 111.0 H (98-107) mmol/L BUN 21 H (7-17) mg/dL Glucose 226 H (65-100) mg/dL POC Glucose 171 H 193 H (70-105) mg/dL 04/25/21 04/25/21 Range/Units 05:24 11:39 Chloride (98-107) mmol/L BUN (7-17) mg/dL Glucose (65-100) mg/dL POC Glucose 207 H 227 H (70-105) mg/dL HEART Score - HEART Score Troponin: Troponin T 0.031 ng/mL (0.00-0.029) H 04/20/21 08:26
[2021-04-26] MEDS: DEXTROSE 5% IN WATER 1,000 ML IV SCH ×3 (02:19→21:33)
[2021-04-26 06:09] LABS: Hematocrit 29.5 % (30.3-42.9); Hemoglobin 9.6 gm/dl (10.1-14.3)
[2021-04-26] MEDS: HEPARIN 5,000 UNIT/1 ML VIAL SUB-Q SCH ×3 (06:50→21:34)
[2021-04-26] MEDS: INSULIN LISPRO 100 UNIT/ML SUB-Q SCH ×4 (06:53→18:07)
[2021-04-26] MEDS: PANTOPRAZOLE 40 MG INJ IV SCH (09:32)
--- NOTE | 2021-04-26 10:13 | Progress Note ---
Assessment and Plan - Patient Problems (1) Acute kidney injury Current Visit: Yes Status: Acute Plan to address problem: Prerenal azotemia versus acute tubular necrosis secondary to hypotension/sepsis. Patient may also have Superimposed drug induced nephropathy Meloxicam and or allopurinol. Kidney function is improving. Continue volume repletion. Follow- up electrolytes and renal function. (2) Hypernatremia Current Visit: Yes Status: Acute Plan to address problem: resolved (3) Metabolic acidosis Current Visit: Yes Status: Acute Plan to address problem: Uremic and possible lactic acidosis. Improving. Continue treatment of underlying conditions (4) Type 2 diabetes mellitus Current Visit: Yes Status: Chronic Plan to address problem: Blood sugar management by primary attending. (5) Sepsis due to urinary tract infection Current Visit: Yes Status: Acute Plan to address problem: Follow-up cultures. Continue empiric antibiotics appropriately dosed to the degree of renal function (6) Acute metabolic encephalopathy Current Visit: Yes Status: Acute Plan to address problem: Toxic versus metabolic encephalopathy. Patient was on Keppra and with was in renal function dose was now high and may have contributed to decreased mental status. Metabolic encephalopathy syndrome secondary to uremia and hypernatremia. Mental status improving. Follow-up mental status with correction of abnormalities Subjective Date of service: 04/26/21 Principal diagnosis: Neurogenic Dysphagia Interval history: Pt lethargic, in no acute respiratory distress Objective - Vital Signs Vital signs: Vital Signs - 12hr 04/26/21 04/26/21 04:28 08:00 Temperature 98.4 F 99.3 F Pulse Rate 72 92 H Blood Pressure 121/68 139/74 [Left] - General Appearance General appearance: well-developed, appears stated age EENT: ATNC, PERRL, mucous membranes moist Neck: no JVD Respiratory: Present: Clear to Ascultation Cardiology: regular, S1S2 Gastrointestinal: normoactive bowel sounds Integumentary: no rash Neurologic: no focal deficit, CN 3-12 intact - Lab 04/26/21 05:10 04/25/21 04:47 Most recent lab results Calcium 9.2 mg/dL (8.4-10.2) 04/25/21 04:47 Phosphorus 5.20 mg/dL (2.5-4.5) H 04/20/21 08:26 Urine Creatinine 61.2 mg/dL (0.1-20.0) H 04/21/21 10:00 Urine Sodium 45 mmol/L 04/21/21 10:00 Urine Total Protein 32 mg/dL (5-11.8) H 04/21/21 10:00 Medications & Allergies - Medications Allergies/Adverse Reactions: Allergies No Known Allergies Allergy (Verified 03/15/21 10:30) Home Medications: Home Medications Medication Instructions Recorded Confirmed Last Taken Type Ferrous Sulfate [Iron 325 MG] 325 mg PO DAILY 03/17/21 03/17/21 Unknown History Lovastatin [Altoprev] 40 mg PO DAILY 03/17/21 03/17/21 Unknown History Meloxicam [Mobic] 7.5 mg DAILY 03/17/21 03/17/21 Unknown History Omeprazole 20 mg PO DAILY 03/17/21 03/17/21 Unknown History Sennosides [Senna] 40 mg PO DAILY 03/17/21 03/17/21 Unknown History Sitagliptin Phos/Metformin HCl tab DAILY 03/17/21 Unknown History [Janumet XR 50-1,000 mg] allopurinoL [Zyloprim] 300 mg PO QDAY 03/17/21 03/17/21 Unknown History amLODIPine 10 mg PO DAILY 03/17/21 03/17/21 Unknown History levETIRAcetam [Keppra TAB] 500 mg PO BID 03/17/21 03/17/21 Unknown History Aspirin [Adult Aspirin] 81 mg PO DAILY #30 tablet. 03/22/21 Unknown Rx Famotidine [Pepcid] 20 mg PO BID #60 tablet 03/22/21 Unknown Rx Linagliptin [Tradjenta] 5 mg PO QAMDIAB #30 tablet 03/22/21 Unknown Rx metFORMIN XR [Glucophage XR] 1,000 mg PO QDDIAB #60 tablet 03/22/21 Unknown Rx traMADoL [Ultram 50 MG tab] 225 mg PO Q6HR #20 03/22/21 Unknown Rx Active Medications: Generic Name Dose Route Start Last Admin Trade Name Freq PRN Reason Stop Dose Admin Acetaminophen 650 mg 04/20/21 02:16 Acetaminophen 650 Mg Rect Supp MO Q4H PRN Pain MILD(1-3)/Fever >100.5/FERRARI Albuterol 2.5 mg 04/20/21 02:16 Albuterol 2.5 Mg/3 Ml Nebu IH Q3HRT PRN Shortness Of Breath Lipase/Protease/Amylase 1 each 04/21/21 17:17 Lipase 10,500/Protease 25,000/Amylase 43,750 (Units) Dr Collier FEEDTUBE PRN PRN For Clogged Feeding Tube Dextrose 50 ml 04/20/21 02:16 Dextrose 50% In Water (25gm) 50 Ml Syringe IV Q30MIN PRN Hypoglycemia Protocol Heparin Sodium (Porcine) 5,000 unit 04/21/21 22:00 04/26/21 06:50 Heparin 5,000 Unit/1 Ml Vial SUB-Q 5,000 unit Q8HR CONNIE Administration Dextrose 1,000 mls @ 100 mls/hr 04/20/21 03:00 04/26/21 02:19 D5w IV 100 mls/hr DIRECT CONNIE Administration Insulin Human Lispro 0 unit 04/20/21 06:00 04/26/21 06:53 Insulin Lispro 100 Unit/Ml SUB-Q Not Given Q6HR CONNIE Protocol Ondansetron HCl 4 mg 04/20/21 02:16 Ondansetron 4 Mg/2 Ml Inj IV Q6H PRN Nausea And Vomiting Pantoprazole Sodium 40 mg 04/25/21 10:00 04/26/21 09:32 Pantoprazole 40 Mg Inj IV 40 mg QDAY CONNIE Administration Simple Syrup 30 ml 04/21/21 17:17 Simple Syrup 15 Ml FEEDTUBE PRN PRN Hypoglycemia Simple Syrup 15 ml 04/22/21 12:00 Simple Syrup 15 Ml FEEDTUBE PRN PRN Hypoglycemia Sodium Bicarbonate 325 mg 04/21/21 17:17 Sodium Bicarbonate 325 Mg Tab FEEDTUBE PRN PRN For Clogged Feeding Tube Sodium Chloride 10 ml 04/20/21 10:00 04/26/21 09:33 Sodium Chloride 0.9% 10 Ml Flush Syringe IV 10 ml BID CONNIE Administration Sodium Chloride 10 ml 04/20/21 02:16 Sodium Chloride 0.9% 10 Ml Flush Syringe IV PRN PRN LINE FLUSH
--- NOTE | 2021-04-26 10:30 | Gastroenterology Progress Note ---
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 - I left a VM for the patient's son (Mr Cristhian Braden), as did the nurse in the GI lab, on Monday and Monday to get consent for the procedure; I will make the patient NPO after Mn in case we are able to get consent, and can proceed Monday. Subjective Date of service: 04/26/21 Principal diagnosis: Neurogenic Dysphagia Interval history: The patient is stable without F/C/N/V on tube feeds. (+) BM without blood. Objective - Constitutional Vitals: Temp Pulse Resp BP Pulse Ox 99.3 F 92 H 20 139/74 97 04/26/21 08:00 04/26/21 08:00 04/25/21 22:00 04/26/21 08:00 04/25/21 22:00 General appearance: no acute distress - EENT ENT: other (NG with tube feeds infusing) - Respiratory Respiratory effort: normal Respiratory: bilateral: CTA - Cardiovascular Rhythm: regular Heart Sounds: Present: S1 & S2 - Gastrointestinal General gastrointestinal: Present: soft, non-tender, non-distended - Labs CBC & Chem 7: 04/26/21 05:10 04/25/21 04:47 Labs: Laboratory Results - last 24 hr 04/25/21 04/26/21 04/26/21 11:39 05:10 06:03 Hgb 9.6 L Hct 29.5 L Plt Count 200 POC Glucose 227 H 224 H
[2021-04-26] MEDS: oxyCODONE /ACETAMINOPHEN 5-325MG TAB PO PRN (12:14)
--- NOTE | 2021-04-26 13:49 | Progress Note ---
Assessment and Plan Cultures: Blood culture 04/19/2021 no growth today SARS CoV2 PCR negative Assessment: 86-year-old female with history of hypertension, diabetes mellitus, gout, recent falls with head contusion, [facility], admitted on 04/19/2021 secondary to altered mental status/lethargy: #Severe sepsis: Improving; likely secondary to possible pneumonia and UTI. #Possible hospital-acquired pneumonia. SARS-CoV-2 PCR negative. Chest ray with bilateral increased interstitial markings. CT with left upper lobe density, eventration of the left hemidiaphragm. #UTI: Urinalysis with 166 WBCs and large leukocyte esterase. #Acute hypoxemic respiratory failure: On 2 L, no desaturations. #Elevated LFTs: from COVID #JIMMY: Likely secondary to sepsis. Improving. #Acute encephalopathy: Slightly better. Likely secondary to sepsis. #Hypernatremia: Per primary team/renal. Recommendations: -Completed cefepime and Zyvox 5 days -Monitor off abx Will sign off please call if any question. Melissa Rogel MD Infectious Diseases Requisition Approver [facility] ([facility]) M [phone] O [phone] Subjective Date of service: 04/26/21 Principal diagnosis: Neurogenic Dysphagia Interval history: Patient feels better. More alert and talking. No fever. Objective - Exam Narrative Exam: General appearance: Alert, in not acute distress Eyes: anicteric sclerae, moist conjunctivae; no lid-lag; PERRLA HENT: Normocephalic, Atraumatic; normal external ears, nares open, oropharynx limited NG tube in place Neck: supple, tracheal midline, no JVD Lungs: Clear to auscultation bilaterally CV: RRR no murmur Abdomen: Soft, nontender Extremities: no edema, no cyanosis Skin: No rash. Psych: no agitated Neuro: Alert, follows commands - Constitutional Vitals: Vital Signs Temp Pulse Resp BP Pulse Ox 99.3 F 92 H 20 139/74 97 04/26/21 08:00 04/26/21 08:00 04/26/21 10:00 04/26/21 08:00 04/26/21 12:50 Temperature -Last 24 Hours Temperature 99.3 F Temperature 98.4 F Temperature 98.6 F Temperature 98.3 F - Labs CBC & Chem 7: 04/26/21 05:10 04/25/21 04:47 Labs: Abnormal lab results 04/26/21 04/26/21 04/26/21 Range/Units 05:10 06:03 11:43 Hgb 9.6 L (10.1-14.3) gm/dl Hct 29.5 L (30.3-42.9) % POC Glucose 224 H 232 H (70-105) mg/dL
--- NOTE | 2021-04-26 17:16 | Progress Note ---
Assessment and Plan Sepsis -Source of infection includes pneumonia and UTI -Leukocytosis 11.8 -Tachycardia 104 -AMS -Lactic acid 2.4 -Start IVF and IV abx -Cultures pending Urinary tract infection -UA positive for UTI -urine wbc -Urine culture pending -on IV Abx Hypernatremia -Severe at 163 -Likely secondary to dehydration, poor oral intake -Neurochecks -Sodium checks -On D5W JIMMY -BUN/Cr on admission 158/6.1 (baseline 18/1.0 on 03/22/2021) -Hydrate with IVF -Monitor intake and output -Avoid nephrotoxic agents -Renal dose all meds -Monitor renal function -Nephrology consulted Pneumonia -CXR shows Increased interstitial prominence with lower lobe opacities -Blood Cultures pending -Start on IV Abx Acute metabolic encephalopathy -CT head negative acute abnormalities -Blood and urine cultures pending -Neuro checks -N.p.o. for now, will need swallow screen prior to initiating diet orders Elevated D-dimer -At 1413 -Patient unable to get CT angio due to renal function -noncontrast CT chest showed pneumonia, bilateral lower extremity Doppler, and VQ scan negative for DVT or PE Acute hypoxic respiratory failure -No Baseline home oxygen requirements -Saturation of 86% on room air -Currently on 4L supplemental oxygen with saturation of 97% -Monitor saturations -Continue supplemental oxygen wean as tolerated Elevated troponin -Likely due to elevated creatinine, will continue to trend -EKG unrevealing for acute ischemic abnormalities -?? Related to renal insufficiency, will obtain 2D echo DM -POC BG monitoring -SSI coverage prn History of hypertension -Presently normotensive/borderline hypotensive -We will hold antihypertensive meds for now, resume when appropriate History of recent fall with head contusion -Will need PT/OT eval and treat when more alert -Initiate fall precautions Suspected COVID-19 virus infection, ruled out with a negative test DVT PPX -on Heparin Daily clinical course: 04/21/21: VQ scan showed low probability for PE, CT chest suggestive for bilateral PNA. Covid test is negative. Sodium level persistently elevated. Continue hypotonic fluid, monitor with serial BMP. Stop heparin drip. Follow clinically, guarded prognosis 04/22/21: Sodium level slightly improved, creatinine trended down. Off heparin drip. Initiated on tube feeding and patient is tolerating well. Mental status remains unchanged. Continue to follow clinically, follow BMP. 9/17/21; sodium level and creatinine improving, failed swallow eval. Consulted GI for PEG tube placement. Continue to follow clinically 04/24/21: pending PEG, cont TF, follow BMP, Cr and Na normal today 04/25/21. Plan for PEG tube placement tomorrow, continue to follow BMP and continue tube feeding 04/26/21: Unable to reach out to family for consent for PEG tube placement. Continue to monitor clinically. Patient tries to pull out the Dobbhoff tube, continue restraints. Subjective Date of service: 04/26/21 Principal diagnosis: Neurogenic Dysphagia Interval history: Patient seen and examined Vitals noted, patient's mental status improved tolerated TF denies any acute issue Objective - Exam Narrative Exam: General appearance: NAD Eyes: anicteric sclerae, moist conjunctivae; no lid-lag; PERRLA HENT: Normocephalic, Atraumatic; normal external ears, nares open, oropharynx clear with moist mucous membranes Neck: supple, tracheal midline, no JVD Lungs: Clear to auscultation bilaterally CV: RRR no murmur Abdomen: Soft, non-tender; no masses or hepatosplenomegaly Extremities: no edema, no cyanosis Skin: No rash. Psych: no agitated Neuro: follows commands - Constitutional Vitals: Vital Signs - 12hr 04/26/21 04/26/21 04/26/21 07:42 08:00 10:00 Temperature 99.3 F 99.3 F Pulse Rate 92 H Respiratory 15 20 Rate Blood Pressure 139/74 Blood Pressure 139/74 [Left] O2 Sat by Pulse 97 Oximetry 04/26/21 04/26/21 04/26/21 11:47 12:27 12:47 Temperature 99.0 F Pulse Rate Respiratory 15 Rate Blood Pressure 174/111 Blood Pressure [Left] O2 Sat by Pulse 97 97 Oximetry 04/26/21 04/26/21 04/26/21 12:50 12:52 13:00 Temperature 98.4 F Pulse Rate 87 100 H Respiratory 17 Rate Blood Pressure Blood Pressure 138/78 [Left] O2 Sat by Pulse 97 97 Oximetry 04/26/21 16:52 Temperature Pulse Rate 79 Respiratory Rate Blood Pressure Blood Pressure [Left] O2 Sat by Pulse Oximetry - Labs CBC & Chem 7: 04/28/21 05:43 04/27/21 05:48 Labs: Abnormal lab results 04/26/21 04/26/21 04/26/21 Range/Units 05:10 06:03 11:43 Hgb 9.6 L (10.1-14.3) gm/dl Hct 29.5 L (30.3-42.9) % POC Glucose 224 H 232 H (70-105) mg/dL HEART Score - HEART Score Troponin: Troponin T 0.031 ng/mL (0.00-0.029) H 04/20/21 08:26
[2021-04-27 06:30] LABS: BUN/Creatinine Ratio 14; Blood Urea Nitrogen 13 mg/dL (7-17); Calcium 8.8 mg/dL (8.4-10.2); Hemolysis Index 3
[2021-04-27] MEDS: DEXTROSE 5% IN WATER 1,000 ML IV SCH (07:06)
[2021-04-27] MEDS: HEPARIN 5,000 UNIT/1 ML VIAL SUB-Q SCH ×3 (07:08→22:42)
[2021-04-27] MEDS: INSULIN LISPRO 100 UNIT/ML SUB-Q SCH ×3 (07:11→17:20)
[2021-04-27] MEDS ORDERED: ceFAZolin/Water 2 GM/20 ML 2 GM/20 ML SYRINGE IV NR (09:00)
--- NOTE | 2021-04-27 10:00 | Progress Note ---
Assessment and Plan - Patient Problems (1) Acute kidney injury Current Visit: Yes Status: Acute Plan to address problem: Prerenal azotemia versus acute tubular necrosis secondary to hypotension/sepsis. Patient may also have Superimposed drug induced nephropathy Meloxicam and or allopurinol. Kidney function is improving. no further renal recommendations at this point, will sign off. (2) Hypernatremia Current Visit: Yes Status: Acute Plan to address problem: resolved (3) Metabolic acidosis Current Visit: Yes Status: Acute Plan to address problem: Uremic and possible lactic acidosis. Improving. Continue treatment of underlying conditions (4) Type 2 diabetes mellitus Current Visit: Yes Status: Chronic Plan to address problem: Blood sugar management by primary attending. (5) Sepsis due to urinary tract infection Current Visit: Yes Status: Acute Plan to address problem: Follow-up cultures. Continue empiric antibiotics appropriately dosed to the deg ree of renal function (6) Acute metabolic encephalopathy Current Visit: Yes Status: Acute Plan to address problem: Toxic versus metabolic encephalopathy. Patient was on Keppra and with was in renal function dose was now high and may have contributed to decreased mental status. Metabolic encephalopathy syndrome secondary to uremia and hypernatremia. Mental status improving. Follow-up mental status with correction of abnormalities Subjective Date of service: 04/27/21 Principal diagnosis: Neurogenic Dysphagia Interval history: Pt lethargic, in no acute respiratory distress Objective - Vital Signs Vital signs: Vital Signs - 12hr 04/26/21 04/27/21 04/27/21 23:28 04:34 07:34 Temperature 99.2 F 99.3 F 98.1 F Pulse Rate 91 H 98 H 96 H Respiratory 17 18 18 Rate Blood Pressure 152/83 158/79 154/85 O2 Sat by Pulse 99 100 100 Oximetry - General Appearance General appearance: well-developed, appears stated age EENT: ATNC, PERRL, mucous membranes moist Neck: no JVD Respiratory: Present: Clear to Ascultation Cardiology: regular, S1S2 Gastrointestinal: normoactive bowel sounds Integumentary: no rash Neurologic: no focal deficit - Lab 04/26/21 05:10 04/27/21 05:48 Most recent lab results Calcium 8.8 mg/dL (8.4-10.2) 04/27/21 05:48 Phosphorus 5.20 mg/dL (2.5-4.5) H 04/20/21 08:26 Urine Creatinine 61.2 mg/dL (0.1-20.0) H 04/21/21 10:00 Urine Sodium 45 mmol/L 04/21/21 10:00 Urine Total Protein 32 mg/dL (5-11.8) H 04/21/21 10:00 Medications & Allergies - Medications Allergies/Adverse Reactions: Allergies No Known Allergies Allergy (Verified 03/15/21 10:30) Home Medications: Home Medications Medication Instructions Recorded Confirmed Last Taken Type Ferrous Sulfate [Iron 325 MG] 325 mg PO DAILY 03/17/21 03/17/21 Unknown History Lovastatin [Altoprev] 40 mg PO DAILY 03/17/21 03/17/21 Unknown History Meloxicam [Mobic] 7.5 mg DAILY 03/17/21 03/17/21 Unknown History Omeprazole 20 mg PO DAILY 03/17/21 03/17/21 Unknown History Sennosides [Senna] 40 mg PO DAILY 03/17/21 03/17/21 Unknown History Sitagliptin Phos/Metformin HCl tab DAILY 03/17/21 Unknown History [Janumet XR 50-1,000 mg] allopurinoL [Zyloprim] 300 mg PO QDAY 03/17/21 03/17/21 Unknown History amLODIPine 10 mg PO DAILY 03/17/21 03/17/21 Unknown History levETIRAcetam [Keppra TAB] 500 mg PO BID 03/17/21 03/17/21 Unknown History Aspirin [Adult Aspirin] 81 mg PO DAILY #30 tablet. 03/22/21 Unknown Rx Famotidine [Pepcid] 20 mg PO BID #60 tablet 03/22/21 Unknown Rx Linagliptin [Tradjenta] 5 mg PO QAMDIAB #30 tablet 03/22/21 Unknown Rx metFORMIN XR [Glucophage XR] 1,000 mg PO QDDIAB #60 tablet 03/22/21 Unknown Rx traMADoL [Ultram 50 MG tab] 225 mg PO Q6HR #20 03/22/21 Unknown Rx Active Medications: Generic Name Dose Route Start Last Admin Trade Name Freq PRN Reason Stop Dose Admin Acetaminophen 650 mg 04/20/21 02:16 Acetaminophen 650 Mg Rect Supp SD Q4H PRN Pain MILD(1-3)/Fever >100.5/FERRARI Albuterol 2.5 mg 04/20/21 02:16 Albuterol 2.5 Mg/3 Ml Nebu IH Q3HRT PRN Shortness Of Breath Lipase/Protease/Amylase 1 each 04/21/21 17:17 Lipase 10,500/Protease 25,000/Amylase 43,750 (Units) Dr Nando FEEDTUBE PRN PRN For Clogged Feeding Tube Dextrose 50 ml 04/20/21 02:16 Dextrose 50% In Water (25gm) 50 Ml Syringe IV Q30MIN PRN Hypoglycemia Protocol Heparin Sodium (Porcine) 5,000 unit 04/21/21 22:00 04/27/21 07:08 Heparin 5,000 Unit/1 Ml Vial SUB-Q Not Given Q8HR CONNIE Dextrose 1,000 mls @ 100 mls/hr 04/20/21 03:00 04/27/21 07:06 D5w IV 100 mls/hr DIRECT CONNIE Administration Sodium Chloride 1,000 mls @ 50 mls/hr 04/27/21 08:30 Nacl 0.9% 1000 Ml IV DIRECT CONNIE Cefazolin Sodium 2 gm in 20 mls @ 80 mls/hr 04/27/21 09:00 Ancef/Sterile Water 2 Gm/20 Ml IV 04/27/21 21:00 PREOP NR Protocol Insulin Human Lispro 0 unit 04/20/21 06:00 04/27/21 07:11 Insulin Lispro 100 Unit/Ml SUB-Q Not Given Q6HR CONNIE Protocol Ondansetron HCl 4 mg 04/20/21 02:16 Ondansetron 4 Mg/2 Ml Inj IV Q6H PRN Nausea And Vomiting Oxycodone/Acetaminophen 1 tab 04/26/21 12:30 04/26/21 12:14 Oxycodone /Acetaminophen 5-325mg Tab PO 1 tab Q6H PRN Administration Pain, Moderate (4-6) Pantoprazole Sodium 40 mg 04/25/21 10:00 04/26/21 09:32 Pantoprazole 40 Mg Inj IV 40 mg QDAY CONNIE Administration Simple Syrup 30 ml 04/21/21 17:17 Simple Syrup 15 Ml FEEDTUBE PRN PRN Hypoglycemia Simple Syrup 15 ml 04/22/21 12:00 Simple Syrup 15 Ml FEEDTUBE PRN PRN Hypoglycemia Sodium Bicarbonate 325 mg 04/21/21 17:17 Sodium Bicarbonate 325 Mg Tab FEEDTUBE PRN PRN For Clogged Feeding Tube Sodium Chloride 10 ml 04/20/21 10:00 04/26/21 21:37 Sodium Chloride 0.9% 10 Ml Flush Syringe IV 10 ml BID CONNIE Administration Sodium Chloride 10 ml 04/20/21 02:16 Sodium Chloride 0.9% 10 Ml Flush Syringe IV PRN PRN LINE FLUSH
[2021-04-27] MEDS: PANTOPRAZOLE 40 MG INJ IV SCH (10:22)
--- NOTE | 2021-04-27 14:12 | Anesthesia Consultation ---
Anesthesia Consult and Med Hx - Airway Anesthetic Teeth Evaluation: Poor ROM Head & Neck: Inadequate Mental/Hyoid Distance: Adequate Mallampati Class: Class II Intubation Access Assessment: Possibly Difficult - Pulmonary Exam CTA: Yes - Cardiac Exam Cardiac Exam: RRR - Pre-Operative Health Status ASA Pre-Surgery Classification: ASA3 Proposed Anesthetic Plan: MAC - Pulmonary Hx Smoking: No Hx Asthma: No Hx Sleep Apnea: No - Cardiovascular System Hx Hypertension: Yes - Central Nervous System Hx Neuromuscular Disorder: Yes (altered mental status) - Endocrine Hx Renal Disease: Yes (JIMMY) Hx Insulin Dependent Diabetes: Yes Hx Thyroid Disease: No - Hematic Hx Anemia: Yes (Hgb 9.6) - Other Systems Hx Alcohol Use: No Hx Substance Use: No Hx Cancer: No
--- NOTE | 2021-04-27 14:13 | Anesthesia Day of Surgery ---
Anesthesia Day of Surgery - Day of Surgery Patient Examined: Yes Patient H&P Reviewed: Yes Patient is NPO: Yes
[2021-04-27] MEDS ORDERED: propofoL 200 MG/20 ML VIAL IV ONE (14:14)
[2021-04-27] MEDS ORDERED: LIDOCAINE MPF (2%) 20 MG/1 ML VIAL 5 ML ONE (14:14)
[2021-04-27] MEDS ORDERED: ceFAZolin/STERILE WATER 2 GM/20 ML SYRINGE IV ONE (14:15)
--- NOTE | 2021-04-27 14:38 | Post Operative Note ---
Pre-op diagnosis: Neurogenic Dysphagia Post-op diagnosis: same (, S/P PEG) Findings: 1. Normal upper GI tract - Placement of 20Fr pull-type PEG 2cm below LSB in body of stomach - External bumper at 4cm Procedure: EGD with PEG placement Anesthesia: MAC Surgeon: TJ MAYERS Estimated blood loss: minimal Pathology: none Specimen disposition: other (N/A) Condition: stable Disposition: floor (Recs: 1. May use PEG tube in 4 hours. 2. Protonix daily therapy. 3. Will loosen bumper tomorrow prior to discharge. 4. Abdominal binder.)
--- NOTE | 2021-04-27 15:06 | Operative Report ---
DATE OF SURGERY: 04/27/2021 PROCEDURE PERFORMED: Esophagogastroduodenoscopy with percutaneous gastrostomy tube placement. PREOPERATIVE DIAGNOSIS: Neurogenic dysphagia. POSTOPERATIVE DIAGNOSES: Neurogenic dysphagia, status post gastrostomy tube placement. ENDOSCOPIST: Dario Duarte M.D. INSTRUMENT: The Olympus video endoscope. MEDICATIONS: MAC anesthesia by anesthesia services as well as Ancef 2 grams given intravenously prior to the start of the procedure. COMPLICATIONS: No apparent complications. ESTIMATED BLOOD LOSS: Minimal. SPECIMENS: None. IMPLANTS: A 20-Bolivian pull-type percutaneous gastrostomy tube placed during this procedure in the body of the stomach. ASSISTANTS: None. CONDITION AT COMPLETION: Stable. TECHNIQUE: The patient was informed of the risks and benefits of the procedure. Her son provided verbal consent via telephone; due to chronic neurologic state, the patient was unable to provide consent. After consent was obtained, she was placed in the supine position. The above sedative medications were given. Her vital signs remained stable throughout the procedure. The Ancef was given intravenously. The endoscope was advanced from the mouth to the second portion of the duodenum under direct visualization. At that point, the bowel was insufflated and the endoscope was withdrawn into the stomach. There was a good red light reflex and indentation in an area 2 cm below the left sternal border. This area was sterilely cleaned and draped. The area was anesthetized using dilute lidocaine and no air bubbles were present in the barrel of the syringe upon deep injection until entering the lumen of the stomach. At that point, a small incision was made and a 20-Bolivian pull-type gastrostomy tube was placed over a wire in the usual fashion. The procedure was then terminated and the external bumper was fixed at 4 cm. FINDINGS: 1. Normal appearing upper GI tract of the duodenum, stomach, and esophagus. A. Placement of a 20-Bolivian pull-type gastrostomy tube 2 cm below the left sternal border, in the body of the stomach. B. The external bumper was fixed at 4 cm. RECOMMENDATIONS: 1. Gastrostomy tube may be used for feeds, flushes and medications in 4 hours. 2. Protonix daily therapy. 3. We will loosen the bumper tomorrow prior to discharge. 4. Continuous abdominal binder use. TID: [id number] RECEIPT: [id number] MDE/SHE
[2021-04-27] MEDS: SODIUM CHLORIDE 0.9% 1000 ML 1,000 ML IV SCH (16:00)
--- NOTE | 2021-04-27 16:25 | Progress Note ---
Assessment and Plan Sepsis -Source of infection includes pneumonia and UTI -Leukocytosis 11.8 -Tachycardia 104 -AMS -Lactic acid 2.4 -Start IVF and IV abx -Cultures pending Urinary tract infection -UA positive for UTI -urine wbc -Urine culture pending -on IV Abx Hypernatremia -Severe at 163 -Likely secondary to dehydration, poor oral intake -Neurochecks -Sodium checks -On D5W JIMMY -BUN/Cr on admission 158/6.1 (baseline 18/1.0 on 03/22/2021) -Hydrate with IVF -Monitor intake and output -Avoid nephrotoxic agents -Renal dose all meds -Monitor renal function -Nephrology consulted Pneumonia -CXR shows Increased interstitial prominence with lower lobe opacities -Blood Cultures pending -Start on IV Abx Acute metabolic encephalopathy -CT head negative acute abnormalities -Blood and urine cultures pending -Neuro checks -N.p.o. for now, will need swallow screen prior to initiating diet orders Elevated D-dimer -At 1413 -Patient unable to get CT angio due to renal function -noncontrast CT chest showed pneumonia, bilateral lower extremity Doppler, and VQ scan negative for DVT or PE Acute hypoxic respiratory failure -No Baseline home oxygen requirements -Saturation of 86% on room air -Currently on 4L supplemental oxygen with saturation of 97% -Monitor saturations -Continue supplemental oxygen wean as tolerated Elevated troponin -Likely due to elevated creatinine, will continue to trend -EKG unrevealing for acute ischemic abnormalities -?? Related to renal insufficiency, will obtain 2D echo DM -POC BG monitoring -SSI coverage prn History of hypertension -Presently normotensive/borderline hypotensive -We will hold antihypertensive meds for now, resume when appropriate History of recent fall with head contusion -Will need PT/OT eval and treat when more alert -Initiate fall precautions Suspected COVID-19 virus infection, ruled out with a negative test DVT PPX -on Heparin gtt Daily clinical course: 04/21/21: VQ scan showed low probability for PE, CT chest suggestive for bilateral PNA. Covid test is negative. Sodium level persistently elevated. Continue hypotonic fluid, monitor with serial BMP. Stop heparin drip. Follow clinically, guarded prognosis 04/22/21: Sodium level slightly improved, creatinine trended down. Off heparin drip. Initiated on tube feeding and patient is tolerating well. Mental status remains unchanged. Continue to follow clinically, follow BMP. 04/23/21; sodium level and creatinine improving, failed swallow eval. Consulted GI for PEG tube placement. Continue to follow clinically 04/24/21: pending PEG, cont TF, follow BMP, Cr and Na normal today 04/25/21. Plan for PEG tube placement tomorrow, continue to follow BMP and continue tube feeding 04/26/21: Unable to reach out to family for consent for PEG tube placement. Continue to monitor clinically. Patient tries to pull out the Dobbhoff tube, continue restraints 04/27/21: Status post PEG tube placement today, continue to monitor Subjective Date of service: 04/27/21 Principal diagnosis: Neurogenic Dysphagia Interval history: Patient seen and examined Vitals noted, patient's mental status improved s/p PEG placement today denies any acute issue Objective - Exam Narrative Exam: General appearance: NAD Eyes: anicteric sclerae, moist conjunctivae; no lid-lag; PERRLA HENT: Normocephalic, Atraumatic; normal external ears, nares open, oropharynx clear with moist mucous membranes Neck: supple, tracheal midline, no JVD Lungs: Clear to auscultation bilaterally CV: RRR no murmur Abdomen: Soft, non-tender; no masses or hepatosplenomegaly, s/p PEG Extremities: no edema, no cyanosis Skin: No rash. Psych: no agitated Neuro: follows commands - Constitutional Vitals: Vital Signs - 12hr 04/27/21 04/27/21 04/27/21 04:34 07:34 10:00 Temperature 99.3 F 98.1 F Pulse Rate 98 H 96 H Respiratory 18 18 20 Rate Blood Pressure 158/79 154/85 O2 Sat by Pulse 100 100 97 Oximetry 04/27/21 04/27/21 04/27/21 13:57 14:39 14:45 Temperature 98.2 F 98 F Pulse Rate 86 94 H 94 H Respiratory 16 18 18 Rate Blood Pressure 117/63 128/87 148/83 O2 Sat by Pulse 97 99 99 Oximetry 04/27/21 04/27/21 14:55 15:10 Temperature Pulse Rate 75 77 Respiratory 18 20 Rate Blood Pressure 150/80 134/77 O2 Sat by Pulse 100 Oximetry - Labs CBC & Chem 7: 04/28/21 05:43 04/27/21 05:48 Labs: Abnormal lab results 04/26/21 04/26/21 04/27/21 Range/Units 17:37 22:53 05:48 Sodium 135 L D (137-145) mmol/L Glucose 264 H (65-100) mg/dL POC Glucose 238 H 230 H (70-105) mg/dL 04/27/21 04/27/21 04/27/21 Range/Units 06:01 11:20 15:49 Sodium (137-145) mmol/L Glucose (65-100) mg/dL POC Glucose 250 H 244 H 201 H (70-105) mg/dL HEART Score - HEART Score Troponin: Troponin T 0.031 ng/mL (0.00-0.029) H 04/20/21 08:26
--- NOTE | 2021-04-27 17:51 | Post Anesthesia Evaluation ---
- Post Anesthesia Evaluation Patient Participated: Yes Airway Patent: Yes Stable Respiratory Function: Yes Nausea/Vomiting: No Temp > 96.8F: Yes Pain Manageable: Yes Adequeate Hydration: Yes Anesthesia Complications: No Block Receding Appropriately: Not Applicable Patient on Ventilator: No
[2021-04-28 06:28] LABS: Hemoglobin 9.3 gm/dl (10.1-14.3)
[2021-04-28] MEDS: HEPARIN 5,000 UNIT/1 ML VIAL SUB-Q SCH ×2 (06:54→13:03)
[2021-04-28] MEDS: INSULIN LISPRO 100 UNIT/ML SUB-Q SCH ×2 (06:56→12:31)
[2021-04-28] MEDS ORDERED: LANSOPRAZOLE 30 MG SOLUTAB FEEDTUBE SCH (10:00)
[2021-04-28] MEDS: oxyCODONE /ACETAMINOPHEN 5-325MG TAB PO PRN (11:29)
[2021-04-28 11:53] VITALS: BP 129/65
[2021-04-28] MEDS: SODIUM CHLORIDE 0.9% 1000 ML 1,000 ML IV SCH ×2 (12:30→12:31)
--- NOTE | 2021-04-28 14:06 | Discharge Summary ---
Providers - Providers Date of Admission: 04/20/21 02:03 Date of discharge: 04/28/21 Attending physician: MARIA M AGUSTIN 04/20/21 02:16 Consult to Physician [CONS] Routine Comment: Consulting Provider: PAYTON KING Physician Instructions: Reason For Exam: PUI, PNA Consult to Physician [CONS] Routine Comment: Consulting Provider: SAVANNA CASSIDY Physician Instructions: Reason For Exam: jimmy 04/21/21 08:57 Physical Therapy Evaluation and Treat [CONS] Urgent Comment: Reason For Exam: PT to eval and treat 04/21/21 09:00 Occupational Therapy Evaluate and Treat [CONS] Urgent Comment: Reason For Exam: OT to eval and treat 04/21/21 15:00 Speech Therapy Evaluation and Treat [CONS] Routine Reason For Exam: aspiration 04/21/21 15:07 Consult to Dietitian/Nutrition [CONS] Routine Physician Instructions: Assess nutrtn needs, initiate, modify, manage TF Reason For Exam: Reason for Consult: Write/Manage Tube Feeding Reason for Consult: Write/Manage Tube Feeding 04/22/21 11:35 Consult to Dietitian/Nutrition [CONS] Routine Physician Instructions: Assess nutrtn needs, initiate, modify, manage TF Reason For Exam: Reason for Consult: Write/Manage Tube Feeding Reason for Consult: Write/Manage Tube Feeding 04/23/21 13:50 Consult to Physician [CONS] Routine Comment: Consulting Provider: TJ MAYERS Physician Instructions: Reason For Exam: PEG placement Primary care physician: FOREST HAQ Hospitalization Condition: Fair Pertinent studies: CXR, head CT, LE venous US, VQ scan, CHest CT, renal US, abdomen xry Hospital course: 86-year-old female with history of hypertension, diabetes mellitus, gout, recent falls with head contusion, resident of a alf facility, admitted on 04/19/2021 secondary to altered mental status/lethargy: On arrival, temperature 101.1, HR 121, RR 24, O2 sat 93%, BP 126/73. Initial WBC 4.8. Platelets 266. D-dimer 1413. CRP 4.9. Lactate 2.4. Sodium 163. Creatinine 6.1. Urinalysis with 166 WBCs, large leukocyte esterase. Chest x-ray with increased interstitial prominence. CT of the chest shows left lower lobe density with eventration of the left hemidiaphragm underlying the spleen. VQ scan low probability for PE. Patient was being treated for PNA, UTI, JIMMY, sepsis, hypernatremia. Daily clinical course: 04/21/21: VQ scan showed low probability for PE, CT chest suggestive for bilateral PNA. Covid test is negative. Sodium level persistently elevated. Continue hypotonic fluid, monitor with serial BMP. Stop heparin drip. Follow clinically, guarded prognosis 04/22/21: Sodium level slightly improved, creatinine trended down. Off heparin drip. Initiated on tube feeding and patient is tolerating well. Mental status remains unchanged. Continue to follow clinically, follow BMP. 04/23/21; sodium level and creatinine improving, failed swallow eval. Consulted GI for PEG tube placement. Continue to follow clinically 04/24/21: pending PEG, cont TF, follow BMP, Cr and Na normal today 04/25/21. Plan for PEG tube placement tomorrow, continue to follow BMP and continue tube feeding 04/26/21: Unable to reach out to family for consent for PEG tube placement. Continue to monitor clinically. Patient tries to pull out the Dobbhoff tube, continue restraints 04/27/21: Status post PEG tube placement today, continue to monitor. 04/28/21: Patient clinically stable, placed on PEG, discharged to SNF with outpt f/u. Disposition: [facility] Final Discharge Diagnosis (Prints w/discharge instructions): Sepsis. UTI. Hypernatremia. JIMMY due to vasomotor nephropathy. b/l bacterial PNA. Elevated troponin. DM type 2. HTN. h/o recent fall. Dysphagia s/p PEG placement. Elevated D-dimer. Acute hypoxic respiratory failure. Acute metabolic encephalopathy Time spent for discharge: 34 minutes Core Measure Documentation - Palliative Care Palliative Care/ Comfort Measures: Not Applicable - Core Measures Any of the following diagnoses?: history only Exam - Physical Exam Narrative exam: General appearance: NAD Eyes: anicteric sclerae, moist conjunctivae; no lid-lag; PERRLA HENT: Normocephalic, Atraumatic; normal external ears, nares open, oropharynx clear with moist mucous membranes Neck: supple, tracheal midline, no JVD Lungs: Clear to auscultation bilaterally CV: RRR no murmur Abdomen: Soft, non-tender; no masses or hepatosplenomegaly, s/p PEG Extremities: no edema, no cyanosis Skin: No rash. Psych: no agitated Neuro: follows commands - Constitutional Vitals: Temp Pulse Resp BP Pulse Ox 99.7 F H 86 16 129/65 96 04/28/21 11:52 04/28/21 11:52 04/28/21 12:29 04/28/21 11:52 04/28/21 12:21 Plan Activity: fall precautions Weight Bearing Status: Non-Weight Bearing Diet: other (tube feeding) Follow up with: FOREST HAQ MD [Primary Care Provider] - 3-5 Days
--- NOTE | 2021-04-28 15:02 | Gastroenterology Progress Note ---
Assessment and Plan - Patient Problems (1) Neurogenic dysphagia Current Visit: Yes Status: Acute Plan to address problem: - Failed BOND MANAGER evaluation, and advanced age, ?underlying dementia v CVA - Recent pneumonia may also have been aspiration - Will continue PEG feeds for now. - We will sign off; please call us if needed; no apparent post-PEG complicat ions. Subjective Date of service: 04/28/21 Principal diagnosis: Neurogenic Dysphagia Interval history: The patient is tolerating tube feeds at 25ml/hour (titrating up) and has no abdominal pain or nausea. No melena reported. Low grade fever overnight (100) but down to 99 today. Objective - Constitutional Vitals: Temp Pulse Resp BP Pulse Ox 99.7 F H 86 16 129/65 96 04/28/21 11:52 04/28/21 11:52 04/28/21 12:29 04/28/21 11:52 04/28/21 12:21 General appearance: no acute distress - Respiratory Respiratory effort: normal Respiratory: bilateral: CTA - Cardiovascular Rhythm: regular Heart Sounds: Present: S1 & S2 - Gastrointestinal General gastrointestinal: Present: soft, non-tender, non-distended, other (PEG bumper loosened from 4cm to 5cm) - Labs CBC & Chem 7: 04/28/21 05:43 04/27/21 05:48 Labs: Laboratory Results - last 24 hr 04/27/21 04/28/21 04/28/21 15:49 05:07 05:43 Hgb 9.3 L Hct 29.0 L Plt Count 214 POC Glucose 201 H 156 H Coronavirus (PCR) 04/28/21 04/28/21 08:30 11:31 Hgb Hct Plt Count POC Glucose 163 H Coronavirus (PCR) Negative
== END 2021-04-28 18:13 | DRG 871 ==
LOC: ED 22:11 → 3A 04-20 02:03 → 4A 04-20 22:07
PROVIDERS: ADMIT Internal Medicine Geriatric Medicine; ATTEND Internal Medicine
PROC: 0DH63UZ Insertion of Feeding Device into Stomach, Percutaneous Approach (ICD-10-PCS; principal; 2021-04-27)
DX: A41.9 Sepsis, unspecified organism (principal); G93.41 Metabolic encephalopathy; J18.9 Pneumonia, unspecified organism; J96.01 Acute respiratory failure with hypoxia; N17.0 Acute kidney failure with tubular necrosis; N39.0 Urinary tract infection, site not specified; E87.0 Hyperosmolality and hypernatremia; Z20.822 Contact with and (suspected) exposure to COVID-19; I10 Essential (primary) hypertension; E11.9 Type 2 diabetes mellitus without complications; K21.9 Gastro-esophageal reflux disease without esophagitis; R77.8 Other specified abnormalities of plasma proteins; R13.12 Dysphagia, oropharyngeal phase; R65.20 Severe sepsis without septic shock; Z86.73 Personal history of transient ischemic attack (TIA), and cerebral infarction without residual deficits; Z79.82 Long term (current) use of aspirin; Z79.84 Long term (current) use of oral hypoglycemic drugs; Z79.899 Other long term (current) drug therapy; R13.19 Other dysphagia
CPT/HCPCS: 36415; 70450; 71045; 71250; 74018; 76770; 78580; 80048; 80053; 80061; 81001; 82140; 82570; 82728; 82962; 83615; 84100; 84145; 84156; 84295; 84300; 84484; 85007; 85014; 85018; 85025; 85049; 85379; 85520; 85610; 85730; 86140; 86706; 86803; 87040; 89050; 93970; 94760; G0378; A9540; C9113; J0456; J0690; J0692; J0696; J1100; J1644; J1815; J2020; J2704; J3370; J7030; J7050; J7070; U0003

== ENCOUNTER 2021-12-23 00:02 | Inpatient (IN) | payer MEDICARE ==
--- NOTE | 2021-12-23 00:34 | Emergency Department Report ---
HPI - General Time Seen by Provider: 12/23/21 00:25 - HPI HPI: Room 19 The patient is an 86-year-old female sent to the emergency department with a chief complaint of altered mental status. Per EMS the patient is nonverbal at baseline. Staff at [facility] reported that today the patient was found to be "more altered than normal." The patient was reportedly febrile to 106 F at the correction. EMS arrived to find the patient hypoxic to approximately 90-91% on 6 L nasal cannula. Patient coughs occasionally but is nonverbal ED Past Medical Hx - Past Medical History Hx Hypertension: Yes Hx CVA: Yes Hx Diabetes: Yes Hx GERD: Yes Hx Renal Disease: Yes (JIMMY) Hx Arthritis: Yes (Gout) Hx Seizures: Yes - Surgical History Additional Surgical History: Feeding tube - Family History Family history: no significant - Social History Smoking Status: Unknown if ever smoked - Medications Home Medications: Home Medications Medication Instructions Recorded Confirmed Last Taken Type Ferrous Sulfate [Iron 325 MG] 325 mg PO DAILY 03/17/21 10/25/21 Unknown History Lovastatin [Altoprev] 40 mg PO DAILY 03/17/21 10/25/21 Unknown History Sennosides [Senna] 40 mg PO DAILY 03/17/21 10/25/21 Unknown History allopurinoL [Zyloprim] 300 mg PO QDAY 03/17/21 10/25/21 Unknown History amLODIPine 10 mg PO DAILY 03/17/21 10/25/21 Unknown History Aspirin [Adult Aspirin] 81 mg PO DAILY #30 tablet. 03/22/21 10/25/21 Unknown Rx Linagliptin [Tradjenta] 5 mg PO QAMDIAB #30 tablet 03/22/21 10/25/21 Unknown Rx Docusate Sodium [Colace ORAL LIQ] 100 mg FEEDTUBE BID #100 ml 11/04/21 Unknown Rx Insulin Glargine [Lantus VIAL] 10 units SUB-Q QHS #30 ml 11/04/21 Unknown Rx Lacosamide [Vimpat] 100 mg PO Q12HR #60 tablet 11/04/21 Unknown Rx Lansoprazole Solutab [Prevacid 30 mg FEEDTUBE QDAY #30 tab.rapdis 11/04/21 Unknown Rx Solutab] Sennosides/Docusate [Senokot S] 2 tab FEEDTUBE BID #30 tablet 11/04/21 Unknown Rx levETIRAcetam [Keppra] 1,000 mg FEEDTUBE BID #600 ml 11/04/21 Unknown Rx traMADoL [Ultram 50 MG tab] 225 mg PO Q6HR #20 tab 11/04/21 Unknown Rx ED Review of Systems ROS: Stated complaint: SEPSIS Other details as noted in HPI Comment: Unobtainable due to pts medical conditions Physical Exam - Physical Exam Physical Exam: GENERAL: The patient is well-developed well-nourished female lying on stretcher with nonrebreather in place appearing lethargic. [] HEENT: Normocephalic. Atraumatic. Extraocular motions are intact. Patient has moist mucous membranes. NECK: Supple. Trachea midline CHEST/LUNGS: Diffuse rhonchi with occasional cough. HEART/CARDIOVASCULAR: Regular. There is no tachycardia. There is no gallop rub or murmur. ABDOMEN: Abdomen is soft, nontender. Patient has normal bowel sounds. There is no abdominal distention. SKIN: There is no rash. There is no edema. There is no diaphoresis. NEURO: The patient opens her eyes to verbal stimuli but does not make eye contact or speak. The patient is not cooperative with neurologic exam. MUSCULOSKELETAL: There is no evidence of acute injury. ED Medical Decision Making - Lab Data Result diagrams: 12/23/21 00:33 12/23/21 00:33 Laboratory Tests 12/23/21 12/23/21 12/23/21 00:33 00:33 00:33 WBC 12.4 H RBC 4.51 Hgb 11.7 Hct 37.0 MCV 82 MCH 26 L MCHC 32 RDW 20.3 H Plt Count 388 Add Manual Diff Complete Total Counted 100 Seg Neuts % (Manual) 77.0 H Band Neutrophils % 0 Lymphocytes % (Manual) 21.0 Reactive Lymphs % (Man) 0 Monocytes % (Manual) 2.0 Eosinophils % (Manual) 0 Basophils % (Manual) 0 Metamyelocytes % 0 Myelocytes % 0 Promyelocytes % 0 Blast Cells % 0 Nucleated RBC % Not Reportable Seg Neutrophils # Man 9.5 H Band Neutrophils # 0.0 Lymphocytes # (Manual) 2.6 Abs React Lymphs (Man) 0.0 Monocytes # (Manual) 0.2 Eosinophils # (Manual) 0.0 Basophils # (Manual) 0.0 Metamyelocytes # 0.0 Myelocytes # 0.0 Promyelocytes # 0.0 Blast Cells # 0.0 WBC Morphology Not Reportable Hypersegmented Neuts Not Reportable Hyposegmented Neuts Not Reportable Hypogranular Neuts Not Reportable Smudge Cells Not Reportable Toxic Granulation Not Reportable Toxic Vacuolation Not Reportable Dohle Bodies Not Reportable Pelger-Huet Anomaly Not Reportable [place] Rods Not Reportable Platelet Estimate Consistent w auto Clumped Platelets Not Reportable Plt Clumps, EDTA Not Reportable Large Platelets Not Reportable Giant Platelets Not Reportable Platelet Satelliting Not Reportable Plt Morphology Comment Not Reportable RBC Morphology Not Reportable Dimorphic RBCs Not Reportable Polychromasia Not Reportable Hypochromasia 1+ Poikilocytosis Not Reportable Anisocytosis 1+ Microcytosis Not Reportable Macrocytosis Not Reportable Spherocytes Not Reportable Pappenheimer Bodies Not Reportable Sickle Cells Not Reportable Target Cells Not Reportable Tear Drop Cells Not Reportable Ovalocytes Not Reportable Helmet Cells Not Reportable [place] Bodies Not Reportable [place] Rings Not Reportable [place] Cells Not Reportable Bite Cells Not Reportable Crenated Cell Not Reportable Elliptocytes Not Reportable Acanthocytes (Spur) Not Reportable Rouleaux Not Reportable Hemoglobin C Crystals Not Reportable Schistocytes Not Reportable Malaria parasites Not Reportable Kevin Bodies Not Reportable Hem Pathologist Commnt No VBG pH Sodium 153 H Potassium 3.5 L Chloride 109.2 H Carbon Dioxide 31 H Anion Gap 16 BUN 32 H Creatinine 0.6 Estimated GFR > 60 BUN/Creatinine Ratio 53 Glucose 185 H Lactic Acid 3.70 H* Calcium 11.0 H Total Bilirubin 0.30 AST 17 ALT 14 Alkaline Phosphatase 81 Total Protein 8.6 H Albumin 4.0 Albumin/Globulin Ratio 0.9 Urine Color Urine Turbidity Urine pH Ur Specific [place] Urine Protein Urine Glucose (UA) Urine Ketones Urine Blood Urine Nitrite Urine Bilirubin Urine Urobilinogen Ur Leukocyte Esterase Urine WBC (Auto) Urine RBC (Auto) Urine Bacteria (Auto) Calcium Oxalate Crystal Hyaline Casts Urine Mucus 12/23/21 12/23/21 00:33 01:54 WBC RBC Hgb Hct MCV MCH MCHC RDW Plt Count Add Manual Diff Total Counted Seg Neuts % (Manual) Band Neutrophils % Lymphocytes % (Manual) Reactive Lymphs % (Man) Monocytes % (Manual) Eosinophils % (Manual) Basophils % (Manual) Metamyelocytes % Myelocytes % Promyelocytes % Blast Cells % Nucleated RBC % Seg Neutrophils # Man Band Neutrophils # Lymphocytes # (Manual) Abs React Lymphs (Man) Monocytes # (Manual) Eosinophils # (Manual) Basophils # (Manual) Metamyelocytes # Myelocytes # Promyelocytes # Blast Cells # WBC Morphology Hypersegmented Neuts Hyposegmented Neuts Hypogranular Neuts Smudge Cells Toxic Granulation Toxic Vacuolation Dohle Bodies Pelger-Huet Anomaly [place] Rods Platelet Estimate Clumped Platelets Plt Clumps, EDTA Large Platelets Giant Platelets Platelet Satelliting Plt Morphology Comment RBC Morphology Dimorphic RBCs Polychromasia Hypochromasia Poikilocytosis Anisocytosis Microcytosis Macrocytosis Spherocytes Pappenheimer Bodies Sickle Cells Target Cells Tear Drop Cells Ovalocytes Helmet Cells [place] Bodies [place] Rings [place] Cells Bite Cells Crenated Cell Elliptocytes Acanthocytes (Spur) Rouleaux Hemoglobin C Crystals Schistocytes Malaria parasites Kevin Bodies Hem Pathologist Commnt VBG pH 7.443 H Sodium Potassium Chloride Carbon Dioxide Anion Gap BUN Creatinine Estimated GFR BUN/Creatinine Ratio Glucose Lactic Acid Calcium Total Bilirubin AST ALT Alkaline Phosphatase Total Protein Albumin Albumin/Globulin Ratio Urine Color Yellow Urine Turbidity Clear Urine pH 5.0 Ur Specific [place] 1.019 Urine Protein 30 mg/dl Urine Glucose (UA) Neg Urine Ketones Neg Urine Blood Neg Urine Nitrite Neg Urine Bilirubin Neg Urine Urobilinogen 2.0 Ur Leukocyte Esterase Neg Urine WBC (Auto) 1.0 Urine RBC (Auto) 3.0 Urine Bacteria (Auto) 1+ Calcium Oxalate Crystal 1+ Hyaline Casts 1 Urine Mucus Few - Radiology Data Radiology results: report reviewed (Chest x-ray), image reviewed (Chest x-ray) interpreted by me: Chest [id number] platelike atelectasis. No pneumothorax [facility] [address] [place] [address] XRay Report Signed Patient: DANY LOPEZ MR#: [id number] 6 : 1935 Acct:[id number] Age/Sex: 86 / F ADM Date: 12/23/21 Loc: ED Attending Dr: Ordering Physician: MAISHA GILLILAND MD Date of Service: 12/23/21 Procedure(s): XR chest 1V ap Accession Number(s): [id number] cc: MAISHA GILLILAND MD Fluoro Time In Minutes: XR chest 1V ap INDICATION / CLINICAL INFORMATION: Fever, hypoxia. COMPARISON: 11/03/2021 FINDINGS: SUPPORT DEVICES: None. HEART /PULMONARY VASC ULATURE: No significant abnormality. LUNGS / PLEURA: Mildly low lung volumes. Since prior study from 10/24/2021, there has been significant improvement in diffuse multifocal airspace disease. Streaky bibasilar opacities remain, likely reflecting atelectasis. No sizable pleural effusion. No pneumothorax. ADDITIONAL FINDINGS: No significant additional findings. IMPRESSION: Low lung volumes with streaky bibasilar opacities, likely reflecting volume loss. Otherwise, no acute chest process. Signer Name: Magy Ascencio MD Signed: 12/23/2021 1:09 AM Workstation Name: [id number] Transcribed By: JS Dictated By: MAGY ASCENCIO MD Electronically Authenticated By: MAGY ASCENCIO MD Signed Date/Time: 12/23/21108 DD/ 8 TD/TT: - Differential Diagnosis Sepsis, pneumonia, UTI, coronavirus Critical care attestation.: If time is entered above; I have spent that time in minutes in the direct care of this critically ill patient, excluding procedure time. ED Disposition Clinical Impression: Sepsis, Atelectasis of both lungs Disposition: ADMITTED INPATIENT Is pt being admited?: Yes Does the pt Need Aspirin: No Condition: Fair Time of Disposition: 03:46 (Care transferred to hospitalist (Dr. Eugene))
[2021-12-23 00:46] LABS: Hemoglobin 11.7 gm/dl (10.1-14.3); Mean Corpuscular HGB Conc 32 % (30-34); Mean Corpuscular Volume 82 fl (79-97); Platelet Count 388 K/mm3 (140-440); Red Blood Count 4.51 M/mm3 (3.65-5.03)
[2021-12-23 00:48] LABS: Red Cell Distribution Width 20.3 % (13.2-15.2)
[2021-12-23] MEDS ORDERED: cefTRIAXone/NS 1 GM/50 ML 1 GM/50 ML BAG IV ONE (00:58)
[2021-12-23] MEDS ORDERED: AZITHROMYCIN/NS 500 MG/250 ML 500 MG/250 ML BAG IV ONE (00:58)
[2021-12-23 01:06] LABS: Alanine Aminotransferase 14 units/L (7-56); Blood Urea Nitrogen 32 mg/dL (7-17); Hemolysis Index 3
[2021-12-23 01:13] LABS: BUN/Creatinine Ratio 53
--- NOTE | 2021-12-23 01:14 | XRay Report ---
XR chest 1V ap INDICATION / CLINICAL INFORMATION: Fever, hypoxia. COMPARISON: 11/03/2021 FINDINGS: SUPPORT DEVICES: None. HEART /PULMONARY VASCULATURE: No significant abnormality. LUNGS / PLEURA: Mildly low lung volumes. Since prior study from 10/24/2021, there has been significant improvement in diffuse multifocal airspace disease. Streaky bibasilar opacities remain, likely refle cting atelectasis. No sizable pleural effusion. No pneumothorax. ADDITIONAL FINDINGS: No significant additional findings. IMPRESSION: Low lung volumes with streaky bibasilar opacities, likely reflecting volume loss. Otherwise, no acute chest process. Signer Name: Peter Ascencio MD Signed: 12/23/2021 1:09 AM Workstation Name: [id number]
[2021-12-23] MEDS ORDERED: SODIUM CHLORIDE 0.9% 1000 ML 1,000 ML IV ONE ×2 (01:33→01:34)
[2021-12-23 02:40] LABS: Total Cells Counted 100
[2021-12-23 02:41] LABS: Anisocytosis 1+; Basophils % (Manual) 0 % (0.0-1.8); Eosinophils % (Manual) 0 % (0.0-4.3); Hypochromasia 1+; Platelet Estimate Consistent w Auto
[2021-12-23 03:07] LABS: Bacteria,Urine 1+ /HPF (Negative); Bilirubin,Urine NEG (Negative); Blood,Urine NEG (Negative); Calcium Oxalate Crystals,Urine 1+; Color,Urine Yellow (Yellow); Hyaline Casts,Urine 1 /LPF; Mucus,Urine FEW /HPF
[2021-12-23] MEDS ORDERED: ALBUTEROL 2.5 MG/3 ML NEBU IH PRN (05:00)
--- NOTE | 2021-12-23 05:10 | History and Physical Report ---
History of Present Illness Date of examination: 12/23/21 Date of admission: 12/23/21 Chief complaint: Altered mental status History of present illness: 86-year-old female with past medical history of hypertension, CVA, diabetes, GERD, renal disease was brought to the emergency room because of altered mental status. Per EMS the patient is nonverbal at baseline. Staff at [facility] reported that today the patient was found to be "more altered than normal." The patient was reportedly febrile to 106 F at the [facility]. EMS arrived to find the patient hypoxic to approximately 90-91% on 6 L nasal cannula. Patient coughs occasionally but is nonverbal In the emergency room patient is found to have sodium of 153 BUN of 32 creatinine 0.6, glucose 185, lactic acid 3.70. Chest [id number] platelike atelectasis. No pneumothorax, so going to admit the patient and put the patient on IV fluid IV antibiotic we will send the urine for culture Past History Past Medical History: arthritis, diabetes, GERD, hypertension, renal failure, seizures, stroke Past Surgical History: Other (Feeding tube) Social history: no significant social history Family history: hypertension Medications and Allergies Allergies Allergy/AdvReac Type Severity Reaction Status Date / Time No Known Allergies Allergy Verified 03/15/21 10:30 Home Medications Medication Instructions Recorded Confirmed Last Taken Type Ferrous Sulfate [Iron 325 MG] 325 mg PO DAILY 03/17/21 10/25/21 Unknown History Lovastatin [Altoprev] 40 mg PO DAILY 03/17/21 10/25/21 Unknown History Sennosides [Senna] 40 mg PO DAILY 03/17/21 10/25/21 Unknown History allopurinoL [Zyloprim] 300 mg PO QDAY 03/17/21 10/25/21 Unknown History amLODIPine 10 mg PO DAILY 03/17/21 10/25/21 Unknown History Aspirin [Adult Aspirin] 81 mg PO DAILY #30 tablet. 03/22/21 10/25/21 Unknown Rx Linagliptin [Tradjenta] 5 mg PO QAMDIAB #30 tablet 03/22/21 10/25/21 Unknown Rx Docusate Sodium [Colace ORAL LIQ] 100 mg FEEDTUBE BID #100 ml 11/04/21 Unknown Rx Insulin Glargine [Lantus VIAL] 10 units SUB-Q QHS #30 ml 11/04/21 Unknown Rx Lacosamide [Vimpat] 100 mg PO Q12HR #60 tablet 11/04/21 Unknown Rx Lansoprazole Solutab [Prevacid 30 mg FEEDTUBE QDAY #30 tab.rapdis 11/04/21 Unknown Rx Solutab] Sennosides/Docusate [Senokot S] 2 tab FEEDTUBE BID #30 tablet 11/04/21 Unknown Rx levETIRAcetam [Keppra] 1,000 mg FEEDTUBE BID #600 ml 11/04/21 Unknown Rx traMADoL [Ultram 50 MG tab] 225 mg PO Q6HR #20 tab 11/04/21 Unknown Rx Active Meds: Active Medications Acetaminophen (Acetaminophen 325 Mg Tab) 650 mg PO Q4H PRN PRN Reason: Pain MILD(1-3)/Fever >100.5/FERRARI Albuterol (Albuterol 2.5 Mg/3 Ml Nebu) 2.5 mg IH Q3HRT PRN PRN Reason: Shortness Of Breath Albuterol/Ipratropium (Ipratropium/Albuterol Sulfate 3 Ml Ampul.Neb) 1 ampul IH Q6HRT CONNIE Dextrose (Dextrose 50% In Water (25gm) 50 Ml Syringe) 50 ml IV Q30MIN PRN; Protocol PRN Reason: Hypoglycemia Famotidine (Famotidine 20 Mg/2 Ml Inj) 20 mg IV BID CONNIE Heparin Sodium (Porcine) (Heparin 5,000 Unit/1 Ml Vial) 5,000 unit SUB-Q Q12HR CONNIE Sodium Chloride (Nacl 0.45% 1000 Ml) 1,000 mls @ 100 mls/hr IV DIRECT CONNIE Ceftriaxone Sodium (Rocephin/Ns 2 Gm/100 Ml) 2 gm in 100 mls @ 200 mls/hr IV Q24H CONNIE; Protocol Insulin Human Lispro (Insulin Lispro 100 Unit/Ml) 0 unit SUB-Q Q6HR CONNIE; Protocol Morphine Sulfate (Morphine 2 Mg/1 Ml Inj) 2 mg IV Q4H PRN PRN Reason: Pain, Moderate (4-6) Morphine Sulfate (Morphine 4 Mg/1 Ml Inj) 4 mg IV Q4H PRN PRN Reason: Pain , Severe (7-10) Ondansetron HCl (Ondansetron 4 Mg/2 Ml Inj) 4 mg IV Q8H PRN PRN Reason: Nausea And Vomiting Sodium Chloride (Sodium Chloride 0.9% 10 Ml Flush Syringe) 10 ml IV BID CONNIE Sodium Chloride (Sodium Chloride 0.9% 10 Ml Flush Syringe) 10 ml IV PRN PRN PRN Reason: LINE FLUSH Review of Systems All systems: negative Constitutional: fatigue, malaise, lethargy, other (Altered mental status, confusion) Respiratory: cough, shortness of breath Exam - Constitutional Vitals: Temp Pulse Resp BP Pulse Ox 98.5 F 100 H 157/92 100 12/23/21 02:21 12/23/21 02:21 12/23/21 02:21 12/23/21 02:21 General appearance: Present: no acute distress, well-nourished - EENT Eyes: Present: PERRL ENT: hearing intact, clear oral mucosa - Neck Neck: Present: supple, normal ROM - Respiratory Respiratory effort: normal Respiratory: bilateral: diminished - Cardiovascular Heart Sounds: Present: S1 & S2. Absent: rub, click - Extremities Extremities: pulses symmetrical, No edema Peripheral Pulses: within normal limits - Abdominal General gastrointestinal: Present: soft, non-tender, non-distended, normal bowel sounds Female genitourinary: Present: normal - Integumentary Integumentary: Present: clear, warm, dry - Musculoskeletal Musculoskeletal: gait normal, strength equal bilaterally - Psychiatric Psychiatric: other (Patient is lethargic) - Neurologic Neurologic: CNII-XII intact, moves all extremities, other (Patient is lethargic) Results - Labs CBC & Chem 7: 12/23/21 00:33 12/23/21 00:33 Labs: Laboratory Last Values WBC 12.4 K/mm3 (4.5-11.0) H 12/23/21 00:33 RBC 4.51 M/mm3 (3.65-5.03) 12/23/21 00:33 Hgb 11.7 gm/dl (10.1-14.3) 12/23/21 00:33 Hct 37.0 % (30.3-42.9) 12/23/21 00:33 MCV 82 fl (79-97) 12/23/21 00:33 MCH 26 pg (28-32) L 12/23/21 00:33 MCHC 32 % (30-34) 12/23/21 00:33 RDW 20.3 % (13.2-15.2) H 12/23/21 00:33 Plt Count 388 K/mm3 (140-440) 12/23/21 00:33 Add Manual Diff Complete 12/23/21 00:33 Total Counted 100 12/23/21 00:33 Seg Neuts % (Manual) 77.0 % (40.0-70.0) H 12/23/21 00:33 Band Neutrophils % 0 % 12/23/21 00:33 Lymphocytes % (Manual) 21.0 % (13.4-35.0) 12/23/21 00:33 Reactive Lymphs % (Man) 0 % 12/23/21 00:33 Monocytes % (Manual) 2.0 % (0.0-7.3) 12/23/21 00:33 Eosinophils % (Manual) 0 % (0.0-4.3) 12/23/21 00:33 Basophils % (Manual) 0 % (0.0-1.8) 12/23/21 00:33 Metamyelocytes % 0 % 12/23/21 00:33 Myelocytes % 0 % 12/23/21 00:33 Promyelocytes % 0 % 12/23/21 00:33 Blast Cells % 0 % 12/23/21 00:33 Nucleated RBC % Not Reportable 12/23/21 00:33 Seg Neutrophils # Man 9.5 K/mm3 (1.8-7.7) H 12/23/21 00:33 Band Neutrophils # 0.0 K/mm3 12/23/21 00:33 Lymphocytes # (Manual) 2.6 K/mm3 (1.2-5.4) 12/23/21 00:33 Abs React Lymphs (Man) 0.0 K/mm3 12/23/21 00:33 Monocytes # (Manual) 0.2 K/mm3 (0.0-0.8) 12/23/21 00:33 Eosinophils # (Manual) 0.0 K/mm3 (0.0-0.4) 12/23/21 00:33 Basophils # (Manual) 0.0 K/mm3 (0.0-0.1) 12/23/21 00:33 Metamyelocytes # 0.0 K/mm3 12/23/21 00:33 Myelocytes # 0.0 K/mm3 12/23/21 00:33 Promyelocytes # 0.0 K/mm3 12/23/21 00:33 Blast Cells # 0.0 K/mm3 12/23/21 00:33 WBC Morphology Not Reportable 12/23/21 00:33 Hypersegmented Neuts Not Reportable 12/23/21 00:33 Hyposegmented Neuts Not Reportable 12/23/21 00:33 Hypogranular Neuts Not Reportable 12/23/21 00:33 Smudge Cells Not Reportable 12/23/21 00:33 Toxic Granulation Not Reportable 12/23/21 00:33 Toxic Vacuolation Not Reportable 12/23/21 00:33 Dohle Bodies Not Reportable 12/23/21 00:33 Pelger-Huet Anomaly Not Reportable 12/23/21 00:33 Marina Rods Not Reportable 12/23/21 00:33 Platelet Estimate Consistent w auto 12/23/21 00:33 Clumped Platelets Not Reportable 12/23/21 00:33 Plt Clumps, EDTA Not Reportable 12/23/21 00:33 Large Platelets Not Reportable 12/23/21 00:33 Giant Platelets Not Reportable 12/23/21 00:33 Platelet Satelliting Not Reportable 12/23/21 00:33 Plt Morphology Comment Not Reportable 12/23/21 00:33 RBC Morphology Not Reportable 12/23/21 00:33 Dimorphic RBCs Not Reportable 12/23/21 00:33 Polychromasia Not Reportable 12/23/21 00:33 Hypochromasia 1+ 12/23/21 00:33 Poikilocytosis Not Reportable 12/23/21 00:33 Anisocytosis 1+ 12/23/21 00:33 Microcytosis Not Reportable 12/23/21 00:33 Macrocytosis Not Reportable 12/23/21 00:33 Spherocytes Not Reportable 12/23/21 00:33 Pappenheimer Bodies Not Reportable 12/23/21 00:33 Sickle Cells Not Reportable 12/23/21 00:33 Target Cells Not Reportable 12/23/21 00:33 Tear Drop Cells Not Reportable 12/23/21 00:33 Ovalocytes Not Reportable 12/23/21 00:33 Helmet Cells Not Reportable 12/23/21 00:33 [place] Bodies Not Reportable 12/23/21 00:33 [place] Rings Not Reportable 12/23/21 00:33 [place] Cells Not Reportable 12/23/21 00:33 Bite Cells Not Reportable 12/23/21 00:33 Crenated Cell Not Reportable 12/23/21 00:33 Elliptocytes Not Reportable 12/23/21 00:33 Acanthocytes (Spur) Not Reportable 12/23/21 00:33 Rouleaux Not Reportable 12/23/21 00:33 Hemoglobin C Crystals Not Reportable 12/23/21 00:33 Schistocytes Not Reportable 12/23/21 00:33 Malaria parasites Not Reportable 12/23/21 00:33 Kevin Bodies Not Reportable 12/23/21 00:33 Hem Pathologist Commnt No 12/23/21 00:33 VBG pH 7.443 (7.320-7.420) H 12/23/21 00:33 Sodium 153 mmol/L (137-145) H 12/23/21 00:33 Potassium 3.5 mmol/L (3.6-5.0) L 12/23/21 00:33 Chloride 109.2 mmol/L (98-107) H 12/23/21 00:33 Carbon Dioxide 31 mmol/L (22-30) H 12/23/21 00:33 Anion Gap 16 mmol/L 12/23/21 00:33 BUN 32 mg/dL (7-17) H 12/23/21 00:33 Creatinine 0.6 mg/dL (0.6-1.2) 12/23/21 00:33 Estimated GFR > 60 ml/min 12/23/21 00:33 BUN/Creatinine Ratio 53 % 12/23/21 00:33 Glucose 185 mg/dL (65-100) H 12/23/21 00:33 Lactic Acid 1.80 mmol/L (0.7-2.0) 12/23/21 03:25 Calcium 11.0 mg/dL (8.4-10.2) H 12/23/21 00:33 Total Bilirubin 0.30 mg/dL (0.1-1.2) 12/23/21 00:33 AST 17 units/L (5-40) 12/23/21 00:33 ALT 14 units/L (7-56) 12/23/21 00:33 Alkaline Phosphatase 81 units/L (35-129) 12/23/21 00:33 Total Protein 8.6 g/dL (6.3-8.2) H 12/23/21 00:33 Albumin 4.0 g/dL (3.9-5) 12/23/21 00:33 Albumin/Globulin Ratio 0.9 % 12/23/21 00:33 Urine Color Yellow (Yellow) 12/23/21 01:54 Urine Turbidity Clear (Clear) 12/23/21 01:54 Urine pH 5.0 (5.0-7.0) 12/23/21 01:54 Ur Specific [place] 1.019 (1.003-1.030) 12/23/21 01:54 Urine Protein 30 mg/dl mg/dL (Negative) 12/23/21 01:54 Urine Glucose (UA) Neg mg/dL (Negative) 12/23/21 01:54 Urine Ketones Neg mg/dL (Negative) 12/23/21 01:54 Urine Blood Neg (Negative) 12/23/21 01:54 Urine Nitrite Neg (Negative) 12/23/21 01:54 Urine Bilirubin Neg (Negative) 12/23/21 01:54 Urine Urobilinogen 2.0 mg/dL (<2.0) 12/23/21 01:54 Ur Leukocyte Esterase Neg (Negative) 12/23/21 01:54 Urine WBC (Auto) 1.0 /HPF (0.0-6.0) 12/23/21 01:54 Urine RBC (Auto) 3.0 /HPF (0.0-6.0) 12/23/21 01:54 Urine Bacteria (Auto) 1+ /HPF (Negative) 12/23/21 01:54 Calcium Oxalate Crystal 1+ 12/23/21 01:54 Hyaline Casts 1 /LPF 12/23/21 01:54 Urine Mucus Few /HPF 12/23/21 01:54 Microbiology: Microbiology 12/23/21 00:38 Peripheral/Venous Blood Culture - Preliminary Culture in Progress 12/23/21 00:33 Peripheral/Venous Blood Culture - Preliminary Culture in Progress - Imaging and Cardiology Chest x-ray: report reviewed Assessment and Plan VTE prophylaxis?: Chemical Plan of care discussed with patient/family: Yes - Patient Problems (1) Acute metabolic encephalopathy Current Visit: Yes Status: Acute Plan to address problem: Admit the patient to the medical telemetry. Metabolic encephalopathy secondary to sepsis and hypoxia. We will put the patient on oxygen via nasal cannula 3 L/min. DuoNeb nebulizer every 4 hours. Rocephin 2 g IV daily. We will send the blood and urine for culture (2) Sepsis Current Visit: Yes Status: Acute Plan to address problem: Rocephin 2 g IV daily. We will send the blood and urine for culture. Recheck CBC BMP in the morning (3) Acute respiratory failure with hypoxia Current Visit: No Status: Acute Plan to address problem: Oxygen via nasal cannula 3 L/min. DuoNeb via nebulizer every 4 hours. Albuterol via nebulizer every 4 hours as needed (4) Dementia Current Visit: No Status: Acute Plan to address problem: Stable. We continue the home medication. Outpatient follow-up with neurology (5) Hypernatremia Current Visit: No Status: Acute Plan to address problem: Half-normal saline at the rate of 100 cc/h. Recheck BMP in the morning (6) Hypertension Current Visit: No Status: Acute Plan to address problem: Hydralazine 10 mg IV every 6 hours as needed. We will continue the home medication (7) UTI (urinary tract infection) Current Visit: No Status: Acute Plan to address problem: Rocephin 2 g IV daily. We will send the blood and urine for culture. Recheck CBC BMP in the morning (8) Type 2 diabetes mellitus Current Visit: No Status: Chronic Plan to address problem: Accu-Chek every 6 hours with Humalog moderate dose coverage. Diabetic education (9) DVT prophylaxis Current Visit: Yes Status: Acute Plan to address problem: Heparin 5000 units subcu every 12 hours for DVT prophylaxis. Pepcid 20 mg IV every 12 hours for GI prophylaxis. Patient is a full code
[2021-12-23] MEDS ORDERED: ACETAMINOPHEN 325 MG TAB PO PRN (05:30)
[2021-12-23] MEDS ORDERED: DEXTROSE 50% IN WATER (25GM) 50 ML SYRINGE IV PRN (05:30)
[2021-12-23] MEDS ORDERED: ONDANSETRON 4 MG/2 ML INJ IV PRN (05:30)
[2021-12-23] MEDS ORDERED: MORPHINE 2 MG/1 ML INJ IV PRN (06:00)
[2021-12-23] MEDS ORDERED: MORPHINE 4 MG/1 ML INJ IV PRN (06:00)
--- NOTE | 2021-12-23 07:43 | Progress Note ---
Assessment and Plan Assessment and plan: History of present illness: 86-year-old female with past medical history of hypertension, CVA, diabetes, GERD, renal disease was brought to the emergency room because of altered mental status. Per EMS the patient is nonverbal at baseline. Staff at [facility] half-way reported that today the patient was found to be "more altered than normal." The patient was reportedly febrile to 106 F at the half-way. EMS arrived to find the patient hypoxic to approximately 90-91% on 6 L nasal cannula. Patient coughs occasionally but is nonverbal. In the emergency room patient is found to have sodium of 153 BUN of 32 creatinine 0.6, glucose 185, lactic acid 3.70. Chest [id number] platelike atelectasis. No pneumothorax, so going to admit the patient and put the patient on IV fluid IV antibiotic we will send the urine for culture Hospital Course: 12/23: patient NAD on my encounter. 100% on 4L. She was present her back in October 2021 for similar admission. At the time the CXR appeared worse with findings consistent with volume overload. CXR this admission appears to be better without findings of fluid overload. D/w RN to coordinate with RT to begin weaning O2. Patient mental status is confused/nonverbal as she does have a history of stroke in her past. This appears to be her baseline. She is in no acute distress. Appears dehydrated. Will give 500 cc of volume and plan for potential d/c back to [facility] this afternoon or tomorrow morning. COVID PCR pening. Patient also has PEG tube, will initiated tubefeeding with glucerna. Assessment and Plan: (1) Acute metabolic encephalopathy Current Visit: Yes Status: Acute Plan to address problem: Admit the patient to the medical telemetry. Metabolic encephalopathy secondary to sepsis and hypoxia. We will put the patient on oxygen via nasal cannula 3 L/min. DuoNeb nebulizer every 4 hours. Rocephin 2 g IV daily. We will send the blood and urine for culture (2) Sepsis POA Current Visit: Yes Status: Acute Plan to address problem: Rocephin 2 g IV daily. We will send the blood and urine for culture. Recheck CBC BMP in the morning Mild leukocytosis 12.4, hypoxic tachycardic on admission. source appears to be respiratory COVID PCR pending Continue abx for now. (3) Acute respiratory failure with hypoxia Current Visit: No Status: Acute Plan to address problem: Oxygen via nasal cannula 3 L/min. DuoNeb via nebulizer every 4 hours. Albuterol via nebulizer every 4 hours as needed (4) Dementia Current Visit: No Status: Acute Plan to address problem: Stable. We continue the home medication. Outpatient follow-up with neurology (5) Hypernatremia Current Visit: No Status: Acute Plan to address problem: Half-normal saline at the rate of 100 cc/h. Recheck BMP in the morning (6) Hypertension Current Visit: No Status: Acute Plan to address problem: Hydralazine 10 mg IV every 6 hours as needed. We will continue the home medication (7) UTI (urinary tract infection) Current Visit: No Status: Acute Plan to address problem: Rocephin 2 g IV daily. We will send the blood and urine for culture. Recheck CBC BMP in the morning (8) Type 2 diabetes mellitus Current Visit: No Status: Chronic Plan to address problem: Accu-Chek every 6 hours with Humalog moderate dose coverage. Diabetic education (9) DVT prophylaxis Current Visit: Yes Status: Acute Plan to address problem: Heparin 5000 units subcu every 12 hours for DVT prophylaxis. Pepcid 20 mg IV every 12 hours for GI prophylaxis. Patient is a full code History Interval history: In no apparent distress. Patient nonverbal at baseline but arousable to physical stimuli. Hospitalist Physical - Physical exam Narrative exam: General appearance: Present: no acute distress, well-nourished - EENT Eyes: Present: PERRL ENT: hearing intact, clear oral mucosa - Neck Neck: Present: supple, normal ROM - Respiratory Respiratory effort: normal Respiratory: bilateral: diminished - Cardiovascular Heart Sounds: Present: S1 & S2. Absent: rub, click - Extremities Extremities: pulses symmetrical, No edema Peripheral Pulses: within normal limits - Abdominal General gastrointestinal: Present: soft, non-tender, non-distended, normal bowel sounds Female genitourinary: Present: normal - Integumentary Integumentary: Present: clear, warm, dry - Musculoskeletal Musculoskeletal: gait normal, strength equal bilaterally - Psychiatric Psychiatric: non verbal at baseline - Neurologic Neurologic: non verbal at baseline. Does not follow commands. - Constitutional Vitals: Temp Pulse Resp BP Pulse Ox 98.5 F 100 H 157/92 100 12/23/21 02:21 12/23/21 02:21 12/23/21 02:21 12/23/21 02:21 General appearance: Present: no acute distress, well-nourished Results - Labs CBC & Chem 7: 12/23/21 00:33 12/23/21 00:33 Labs: Laboratory Last Values WBC 12.4 K/mm3 (4.5-11.0) H 12/23/21 00:33 RBC 4.51 M/mm3 (3.65-5.03) 12/23/21 00:33 Hgb 11.7 gm/dl (10.1-14.3) 12/23/21 00:33 Hct 37.0 % (30.3-42.9) 12/23/21 00:33 MCV 82 fl (79-97) 12/23/21 00:33 MCH 26 pg (28-32) L 12/23/21 00:33 MCHC 32 % (30-34) 12/23/21 00:33 RDW 20.3 % (13.2-15.2) H 12/23/21 00:33 Plt Count 388 K/mm3 (140-440) 12/23/21 00:33 Add Manual Diff Complete 12/23/21 00:33 Total Counted 100 12/23/21 00:33 Seg Neuts % (Manual) 77.0 % (40.0-70.0) H 12/23/21 00:33 Band Neutrophils % 0 % 12/23/21 00:33 Lymphocytes % (Manual) 21.0 % (13.4-35.0) 12/23/21 00:33 Reactive Lymphs % (Man) 0 % 12/23/21 00:33 Monocytes % (Manual) 2.0 % (0.0-7.3) 12/23/21 00:33 Eosinophils % (Manual) 0 % (0.0-4.3) 12/23/21 00:33 Basophils % (Manual) 0 % (0.0-1.8) 12/23/21 00:33 Metamyelocytes % 0 % 12/23/21 00:33 Myelocytes % 0 % 12/23/21 00:33 Promyelocytes % 0 % 12/23/21 00:33 Blast Cells % 0 % 12/23/21 00:33 Nucleated RBC % Not Reportable 12/23/21 00:33 Seg Neutrophils # Man 9.5 K/mm3 (1.8-7.7) H 12/23/21 00:33 Band Neutrophils # 0.0 K/mm3 12/23/21 00:33 Lymphocytes # (Manual) 2.6 K/mm3 (1.2-5.4) 12/23/21 00:33 Abs React Lymphs (Man) 0.0 K/mm3 12/23/21 00:33 Monocytes # (Manual) 0.2 K/mm3 (0.0-0.8) 12/23/21 00:33 Eosinophils # (Manual) 0.0 K/mm3 (0.0-0.4) 12/23/21 00:33 Basophils # (Manual) 0.0 K/mm3 (0.0-0.1) 12/23/21 00:33 Metamyelocytes # 0.0 K/mm3 12/23/21 00:33 Myelocytes # 0.0 K/mm3 12/23/21 00:33 Promyelocytes # 0.0 K/mm3 12/23/21 00:33 Blast Cells # 0.0 K/mm3 12/23/21 00:33 WBC Morphology Not Reportable 12/23/21 00:33 Hypersegmented Neuts Not Reportable 12/23/21 00:33 Hyposegmented Neuts Not Reportable 12/23/21 00:33 Hypogranular Neuts Not Reportable 12/23/21 00:33 Smudge Cells Not Reportable 12/23/21 00:33 Toxic Granulation Not Reportable 12/23/21 00:33 Toxic Vacuolation Not Reportable 12/23/21 00:33 Dohle Bodies Not Reportable 12/23/21 00:33 Pelger-Huet Anomaly Not Reportable 12/23/21 00:33 Marina Rods Not Reportable 12/23/21 00:33 Platelet Estimate Consistent w auto 12/23/21 00:33 Clumped Platelets Not Reportable 12/23/21 00:33 Plt Clumps, EDTA Not Reportable 12/23/21 00:33 Large Platelets Not Reportable 12/23/21 00:33 Giant Platelets Not Reportable 12/23/21 00:33 Platelet Satelliting Not Reportable 12/23/21 00:33 Plt Morphology Comment Not Reportable 12/23/21 00:33 RBC Morphology Not Reportable 12/23/21 00:33 Dimorphic RBCs Not Reportable 12/23/21 00:33 Polychromasia Not Reportable 12/23/21 00:33 Hypochromasia 1+ 12/23/21 00:33 Poikilocytosis Not Reportable 12/23/21 00:33 Anisocytosis 1+ 12/23/21 00:33 Microcytosis Not Reportable 12/23/21 00:33 Macrocytosis Not Reportable 12/23/21 00:33 Spherocytes Not Reportable 12/23/21 00:33 Pappenheimer Bodies Not Reportable 12/23/21 00:33 Sickle Cells Not Reportable 12/23/21 00:33 Target Cells Not Reportable 12/23/21 00:33 Tear Drop Cells Not Reportable 12/23/21 00:33 Ovalocytes Not Reportable 12/23/21 00:33 Helmet Cells Not Reportable 12/23/21 00:33 [place] Bodies Not Reportable 12/23/21 00:33 [place] Rings Not Reportable 12/23/21 00:33 Deonte Cells Not Reportable 12/23/21 00:33 Bite Cells Not Reportable 12/23/21 00:33 Crenated Cell Not Reportable 12/23/21 00:33 Elliptocytes Not Reportable 12/23/21 00:33 Acanthocytes (Spur) Not Reportable 12/23/21 00:33 Rouleaux Not Reportable 12/23/21 00:33 Hemoglobin C Crystals Not Reportable 12/23/21 00:33 Schistocytes Not Reportable 12/23/21 00:33 Malaria parasites Not Reportable 12/23/21 00:33 Kevin Bodies Not Reportable 12/23/21 00:33 Hem Pathologist Commnt No 12/23/21 00:33 VBG pH 7.443 (7.320-7.420) H 12/23/21 00:33 Sodium 153 mmol/L (137-145) H 12/23/21 00:33 Potassium 3.5 mmol/L (3.6-5.0) L 12/23/21 00:33 Chloride 109.2 mmol/L (98-107) H 12/23/21 00:33 Carbon Dioxide 31 mmol/L (22-30) H 12/23/21 00:33 Anion Gap 16 mmol/L 12/23/21 00:33 BUN 32 mg/dL (7-17) H 12/23/21 00:33 Creatinine 0.6 mg/dL (0.6-1.2) 12/23/21 00:33 Estimated GFR > 60 ml/min 12/23/21 00:33 BUN/Creatinine Ratio 53 % 12/23/21 00:33 Glucose 185 mg/dL (65-100) H 12/23/21 00:33 POC Glucose 147 mg/dL (70-105) H 12/23/21 05:24 Lactic Acid 1.80 mmol/L (0.7-2.0) 12/23/21 03:25 Calcium 11.0 mg/dL (8.4-10.2) H 12/23/21 00:33 Total Bilirubin 0.30 mg/dL (0.1-1.2) 12/23/21 00:33 AST 17 units/L (5-40) 12/23/21 00:33 ALT 14 units/L (7-56) 12/23/21 00:33 Alkaline Phosphatase 81 units/L (35-129) 12/23/21 00:33 Total Protein 8.6 g/dL (6.3-8.2) H 12/23/21 00:33 Albumin 4.0 g/dL (3.9-5) 12/23/21 00:33 Albumin/Globulin Ratio 0.9 % 12/23/21 00:33 Urine Color Yellow (Yellow) 12/23/21 01:54 Urine Turbidity Clear (Clear) 12/23/21 01:54 Urine pH 5.0 (5.0-7.0) 12/23/21 01:54 Ur Specific [place] 1.019 (1.003-1.030) 12/23/21 01:54 Urine Protein 30 mg/dl mg/dL (Negative) 12/23/21 01:54 Urine Glucose (UA) Neg mg/dL (Negative) 12/23/21 01:54 Urine Ketones Neg mg/dL (Negative) 12/23/21 01:54 Urine Blood Neg (Negative) 12/23/21 01:54 Urine Nitrite Neg (Negative) 12/23/21 01:54 Urine Bilirubin Neg (Negative) 12/23/21 01:54 Urine Urobilinogen 2.0 mg/dL (<2.0) 12/23/21 01:54 Ur Leukocyte Esterase Neg (Negative) 12/23/21 01:54 Urine WBC (Auto) 1.0 /HPF (0.0-6.0) 12/23/21 01:54 Urine RBC (Auto) 3.0 /HPF (0.0-6.0) 12/23/21 01:54 Urine Bacteria (Auto) 1+ /HPF (Negative) 12/23/21 01:54 Calcium Oxalate Crystal 1+ 12/23/21 01:54 Hyaline Casts 1 /LPF 12/23/21 01:54 Urine Mucus Few /HPF 12/23/21 01:54 Microbiology: Microbiology 12/23/21 00:38 Peripheral/Venous Blood Culture - Preliminary Culture in Progress 12/23/21 00:33 Peripheral/Venous Blood Culture - Preliminary Culture in Progress Active Medications - Current Medications Current Medications: Generic Name Dose Route Start Last Admin Trade Name Freq PRN Reason Stop Dose Admin Acetaminophen 650 mg 12/23/21 05:30 Acetaminophen 325 Mg Tab PO Q4H PRN Pain MILD(1-3)/Fever >100.5/FERRARI Albuterol 2.5 mg 12/23/21 05:00 Albuterol 2.5 Mg/3 Ml Nebu IH Q3HRT PRN Shortness Of Breath Albuterol/Ipratropium 1 ampul 12/23/21 08:00 Ipratropium/Albuterol Sulfate 3 Ml Ampul.Neb IH Q6HRT CONNIE Dextrose 50 ml 12/23/21 05:30 Dextrose 50% In Water (25gm) 50 Ml Syringe IV Q30MIN PRN Hypoglycemia Protocol Famotidine 20 mg 12/23/21 10:00 Famotidine 20 Mg/2 Ml Inj IV BID [facility] Heparin Sodium (Porcine) 5,000 unit 12/23/21 10:00 Heparin 5,000 Unit/1 Ml Vial SUB-Q Q12HR [facility] Sodium Chloride 1,000 mls @ 100 mls/hr 12/23/21 06:00 Nacl 0.45% 1000 Ml IV DIRECT [facility] Ceftriaxone Sodium 2 gm in 100 mls @ 200 mls/hr 12/24/21 06:00 Rocephin/Ns 2 Gm/100 Ml IV Q24H [facility] Protocol Insulin Human Lispro 0 unit 05/19/22 06:00 Insulin Lispro 100 Unit/Ml SUB-Q Q6HR CONNIE Protocol Morphine Sulfate 2 mg 12/23/21 06:00 Morphine 2 Mg/1 Ml Inj IV Q4H PRN Pain, Moderate (4-6) Morphine Sulfate 4 mg 12/23/21 06:00 Morphine 4 Mg/1 Ml Inj IV Q4H PRN Pain , Severe (7-10) Ondansetron HCl 4 mg 12/23/21 05:30 Ondansetron 4 Mg/2 Ml Inj IV Q8H PRN Nausea And Vomiting Sodium Chloride 10 ml 12/23/21 10:00 Sodium Chloride 0.9% 10 Ml Flush Syringe IV BID CONNIE Sodium Chloride 10 ml 12/23/21 06:00 Sodium Chloride 0.9% 10 Ml Flush Syringe IV PRN PRN LINE FLUSH
[2021-12-23] MEDS: IPRATROPIUM/ALBUTEROL SULFATE 3 ML AMPUL.NEB IH SCH ×3 (08:17→20:57)
[2021-12-23] MEDS: INSULIN LISPRO 100 UNIT/ML SUB-Q SCH ×3 (11:57→17:50)
[2021-12-23] MEDS: HEPARIN 5,000 UNIT/1 ML VIAL SUB-Q SCH ×2 (11:58→21:30)
[2021-12-23] MEDS: FAMOTIDINE 20 MG/2 ML INJ IV SCH ×2 (11:58→21:30)
[2021-12-23] MEDS ORDERED: SODIUM CHLORIDE 0.45% 500 ML IV SCH (12:00)
[2021-12-23] MEDS: SODIUM CHLORIDE 0.45% 1000 ML 1,000 ML IV SCH (15:25)
[2021-12-23] MEDS: cefTRIAXone/NS 2 GM/100 ML 2 GM/100 ML BAG IV SCH (21:30)
[2021-12-24] MEDS: INSULIN LISPRO 100 UNIT/ML SUB-Q SCH ×4 (00:32→17:42)
[2021-12-24] MEDS: SODIUM CHLORIDE 0.45% 1000 ML 1,000 ML IV SCH (01:21)
[2021-12-24] MEDS: IPRATROPIUM/ALBUTEROL SULFATE 3 ML AMPUL.NEB IH SCH ×4 (02:05→20:22)
[2021-12-24 05:17] LABS: Basophils % (Auto) 0.2 % (0.0-1.8); Eosinophils # (Auto) 0.2 K/mm3 (0.0-0.4); Eosinophils % (Auto) 1.4 % (0.0-4.3); Hematocrit 31.5 % (30.3-42.9); Lymphocytes # (Auto) 1.6 K/mm3 (1.2-5.4); Lymphocytes % (Auto) 12.4 % (13.4-35.0); Mean Corpuscular HGB Conc 32 % (30-34); Mean Corpuscular Volume 83 fl (79-97); Monocytes # (Auto) 0.6 K/mm3 (0.0-0.8); Monocytes % (Auto) 4.4 % (0.0-7.3); Platelet Count 313 K/mm3 (140-440); Red Blood Count 3.81 M/mm3 (3.65-5.03); Red Cell Distribution Width 19.8 % (13.2-15.2)
[2021-12-24 05:41] LABS: Alanine Aminotransferase 11 units/L (7-56); Albumin 3.6 g/dL (3.9-5); Blood Urea Nitrogen 21 mg/dL (7-17); Calcium 9.9 mg/dL (8.4-10.2); Hemolysis Index 0
[2021-12-24 05:59] LABS: BUN/Creatinine Ratio 53
[2021-12-24] MEDS ORDERED: POTASSIUM CHLORIDE 20 MEQ 20 MEQ/100 ML BAG IV SCH (07:00)
[2021-12-24] MEDS: POTASSIUM CHLORIDE 10 MEQ 10 MEQ/100 ML BAG IV SCH ×4 (07:52→13:05)
[2021-12-24] MEDS: FAMOTIDINE 20 MG/2 ML INJ IV SCH ×2 (09:29→21:32)
[2021-12-24] MEDS: HEPARIN 5,000 UNIT/1 ML VIAL SUB-Q SCH ×2 (09:32→21:32)
[2021-12-24] MEDS ORDERED: SODIUM CHLORIDE 0.45% 1000 ML 1,000 ML IV SCH (11:00)
--- NOTE | 2021-12-24 11:43 | Progress Note ---
Assessment and Plan Assessment and plan: History of present illness: 86-year-old female with past medical history of hypertension, CVA, diabetes, GERD, renal disease was brought to the emergency room because of altered mental status. Per EMS the patient is nonverbal at baseline. Staff at [facility] reported that today the patient was found to be "more altered than normal." The patient was reportedly febrile to 106 F at the [place] [facility]. EMS arrived to find the patient hypoxic to approximately 90-91% on 6 L nasal cannula. Patient coughs occasionally but is nonverbal. In the emergency room patient is found to have sodium of 153 BUN of 32 creatinine 0.6, glucose 185, lactic acid 3.70. Chest [id number] platelike atelectasis. No pneumothorax, so going to admit the patient and put the patient on IV fluid IV antibiotic we will send the urine for culture Hospital Course: 12/23: patient NAD on my encounter. 100% on 4L. She was present her back in October 2021 for similar admission. At the time the CXR appeared worse with findings consistent with volume overload. CXR this admission appears to be better without findings of fluid overload. D/w RN to coordinate with RT to begin weaning O2. Patient mental status is confused/nonverbal as she does have a history of stroke in her past. This appears to be her baseline. She is in no acute distress. Appears dehydrated. Will give 500 cc of volume and plan for potential d/c back to [facility] this afternoon or tomorrow morning. COVID PCR pening. Patient also has PEG tube, will initiated tubefeeding with glucerna. 12/24: Respiratory symptoms improved. Nasal cannula downtitrated to 2L/min, satting 98%. Hypernatremia still of concern, NA: 152. FWF initated at 250 cc/hr. Hypokalemic as well, replaced with 40 MEQ IV and 40 MEQ PEG supplementation. Recheck tomorrow on labs. Mentation showing some improvement. More responsive to stimuli. Likely discharge back to [facility] on monday. Assessment and Plan: #Acute metabolic encephalopathy (improved) Current Visit: Yes Status: Acute Plan to address problem: Admit the patient to the medical telemetry. Metabolic encephalopathy secondary to sepsis and hypoxia. We will put the patient on oxygen via nasal cannula 3 L/min. DuoNeb nebulizer every 4 hours. Rocephin 2 g IV daily. We will send the blood and urine for culture interval improvement, response to tactile stimuli Suspect in the setting of sepsis and hypernatremia/dehydration. # Sepsis POA Current Visit: Yes Status: Acute Plan to address problem: Rocephin 2 g IV daily. We will send the blood and urine for culture. Recheck CBC BMP in the morning Mild leukocytosis 12.4, hypoxic tachycardic on admission. source appears to be respiratory COVID PCR negative Continue abx for now. # Acute respiratory failure with hypoxia Current Visit: No Status: Acute Plan to address problem: Oxygen via nasal cannula 3 L/min. DuoNeb via nebulizer every 4 hours. Albute rol via nebulizer every 4 hours as needed Management as above #Community acquired pneumonia -treatment wit rocpehin/azithromycin -sputum culture/blood culture -supplemental O2. # Dementia Current Visit: No Status: Acute Plan to address problem: Stable. We continue the home medication. Outpatient follow-up with neurology # Hypernatremia Current Visit: No Status: Acute Plan to address problem: Half-normal saline at the rate of 100 cc/h, will d/c today FWF @250 cc/hr initiated #Hypertension Current Visit: No Status: Acute Plan to address problem: Hydralazine 10 mg IV every 6 hours as needed. We will continue the home medication #UTI (urinary tract infection) - rule out. Current Visit: No Status: Acute Plan to address problem: UA not indicated of UTI. # Type 2 diabetes mellitus Current Visit: No Status: Chronic Plan to address problem: Glucerna tube feeds Accu-Chek every 6 hours with Humalog moderate dose coverage. #History of CVA - prior cva, nonverbal at baseline - responds to physical stimuli. # DVT prophylaxis Current Visit: Yes Status: Acute Plan to address problem: Heparin 5000 units subcu every 12 hours for DVT prophylaxis. Pepcid 20 mg IV every 12 hours for GI prophylaxis. Patient is a full code History Interval history: Resting comfortably. More alert this AM on encounter. Hospitalist Physical - Physical exam Narrative exam: General appearance: Present: no acute distress, well-nourished, on supplemental O2. - EENT Eyes: Present: PERRL ENT: hearing intact, clear oral mucosa - Neck Neck: Present: supple, normal ROM - Respiratory Respiratory effort: normal Respiratory: bilateral: diminished - Cardiovascular Heart Sounds: Present: S1 & S2. Absent: rub, click - Extremities Extremities: pulses symmetrical, No edema Peripheral Pulses: within normal limits - Abdominal General gastrointestinal: Present: soft, non-tender, non-distended, normal bowel sounds Female genitourinary: Present: normal - Integumentary Integumentary: Present: clear, warm, dry - Musculoskeletal Musculoskeletal: gait normal, strength equal bilaterally - Psychiatric Psychiatric: non verbal at baseline - Neurologic Neurologic: non verbal at baseline. Does not follow commands. - Constitutional Vitals: Temp Pulse Resp BP Pulse Ox 98.9 F 86 20 159/87 98 12/24/21 05:42 12/24/21 08:53 12/24/21 08:53 12/24/21 05:42 12/24/21 08:56 General appearance: Present: no acute distress, well-nourished Results - Labs CBC & Chem 7: 12/24/21 04:34 12/24/21 04:34 Labs: Laboratory Last Values WBC 12.7 K/mm3 (4.5-11.0) H 12/24/21 04:34 RBC 3.81 M/mm3 (3.65-5.03) 12/24/21 04:34 Hgb 10.0 gm/dl (10.1-14.3) L 12/24/21 04:34 Hct 31.5 % (30.3-42.9) 12/24/21 04:34 MCV 83 fl (79-97) 12/24/21 04:34 MCH 26 pg (28-32) L 12/24/21 04:34 MCHC 32 % (30-34) 12/24/21 04:34 RDW 19.8 % (13.2-15.2) H 12/24/21 04:34 Plt Count 313 K/mm3 (140-440) 12/24/21 04:34 Lymph % (Auto) 12.4 % (13.4-35.0) L 12/24/21 04:34 [place] % (Auto) 4.4 % (0.0-7.3) 12/24/21 04:34 Eos % (Auto) 1.4 % (0.0-4.3) 12/24/21 04:34 Baso % (Auto) 0.2 % (0.0-1.8) 12/24/21 04:34 Lymph # (Auto) 1.6 K/mm3 (1.2-5.4) 12/24/21 04:34 [place]isco[place] # (Auto) 0.6 K/mm3 (0.0-0.8) 12/24/21 04:34 Eos # (Auto) 0.2 K/mm3 (0.0-0.4) 12/24/21 04:34 Baso # (Auto) 0.0 K/mm3 (0.0-0.1) 12/24/21 04:34 Add Manual Diff Complete 12/23/21 00:33 Total Counted 100 12/23/21 00:33 Seg Neutrophils % 81.6 % (40.0-70.0) H 12/24/21 04:34 Seg Neuts % (Manual) 77.0 % (40.0-70.0) H 12/23/21 00:33 Band Neutrophils % 0 % 12/23/21 00:33 Lymphocytes % (Manual) 21.0 % (13.4-35.0) 12/23/21 00:33 Reactive Lymphs % (Man) 0 % 12/23/21 00:33 Monocytes % (Manual) 2.0 % (0.0-7.3) 12/23/21 00:33 Eosinophils % (Manual) 0 % (0.0-4.3) 12/23/21 00:33 Basophils % (Manual) 0 % (0.0-1.8) 12/23/21 00:33 Metamyelocytes % 0 % 12/23/21 00:33 Myelocytes % 0 % 12/23/21 00:33 Promyelocytes % 0 % 12/23/21 00:33 Blast Cells % 0 % 12/23/21 00:33 Nucleated RBC % Not Reportable 12/23/21 00:33 Seg Neutrophils # 10.4 K/mm3 (1.8-7.7) H 12/24/21 04:34 Seg Neutrophils # Man 9.5 K/mm3 (1.8-7.7) H 12/23/21 00:33 Band Neutrophils # 0.0 K/mm3 12/23/21 00:33 Lymphocytes # (Manual) 2.6 K/mm3 (1.2-5.4) 12/23/21 00:33 Abs React Lymphs (Man) 0.0 K/mm3 12/23/21 00:33 Monocytes # (Manual) 0.2 K/mm3 (0.0-0.8) 12/23/21 00:33 Eosinophils # (Manual) 0.0 K/mm3 (0.0-0.4) 12/23/21 00:33 Basophils # (Manual) 0.0 K/mm3 (0.0-0.1) 12/23/21 00:33 Metamyelocytes # 0.0 K/mm3 12/23/21 00:33 Myelocytes # 0.0 K/mm3 12/23/21 00:33 Promyelocytes # 0.0 K/mm3 12/23/21 00:33 Blast Cells # 0.0 K/mm3 12/23/21 00:33 WBC Morphology Not Reportable 12/23/21 00:33 Hypersegmented Neuts Not Reportable 12/23/21 00:33 Hyposegmented Neuts Not Reportable 12/23/21 00:33 Hypogranular Neuts Not Reportable 12/23/21 00:33 Smudge Cells Not Reportable 12/23/21 00:33 Toxic Granulation Not Reportable 12/23/21 00:33 Toxic Vacuolation Not Reportable 12/23/21 00:33 Dohle Bodies Not Reportable 12/23/21 00:33 Pelger-Huet Anomaly Not Reportable 12/23/21 00:33 Marina Rods Not Reportable 12/23/21 00:33 Platelet Estimate Consistent w auto 12/23/21 00:33 Clumped Platelets Not Reportable 12/23/21 00:33 Plt Clumps, EDTA Not Reportable 12/23/21 00:33 Large Platelets Not Reportable 12/23/21 00:33 Giant Platelets Not Reportable 12/23/21 00:33 Platelet Satelliting Not Reportable 12/23/21 00:33 Plt Morphology Comment Not Reportable 12/23/21 00:33 RBC Morphology Not Reportable 12/23/21 00:33 Dimorphic RBCs Not Reportable 12/23/21 00:33 Polychromasia Not Reportable 12/23/21 00:33 Hypochromasia 1+ 12/23/21 00:33 Poikilocytosis Not Reportable 12/23/21 00:33 Anisocytosis 1+ 12/23/21 00:33 Microcytosis Not Reportable 12/23/21 00:33 Macrocytosis Not Reportable 12/23/21 00:33 Spherocytes Not Reportable 12/23/21 00:33 Pappenheimer Bodies Not Reportable 12/23/21 00:33 Sickle Cells Not Reportable 12/23/21 00:33 Target Cells Not Reportable 12/23/21 00:33 Tear Drop Cells Not Reportable 12/23/21 00:33 Ovalocytes Not Reportable 12/23/21 00:33 Helmet Cells Not Reportable 12/23/21 00:33 [place] Bodies Not Reportable 12/23/21 00:33 [place] Rings Not Reportable 12/23/21 00:33 Deonte Cells Not Reportable 12/23/21 00:33 Bite Cells Not Reportable 12/23/21 00:33 Crenated Cell Not Reportable 12/23/21 00:33 Elliptocytes Not Reportable 12/23/21 00:33 Acanthocytes (Spur) Not Reportable 12/23/21 00:33 Rouleaux Not Reportable 12/23/21 00:33 Hemoglobin C Crystals Not Reportable 12/23/21 00:33 Schistocytes Not Reportable 12/23/21 00:33 Malaria parasites Not Reportable 12/23/21 00:33 Kevin Bodies Not Reportable 12/23/21 00:33 Hem Pathologist Commnt No 12/23/21 00:33 VBG pH 7.443 (7.320-7.420) H 12/23/21 00:33 Sodium 152 mmol/L (137-145) H 12/24/21 04:34 Potassium 2.6 mmol/L (3.6-5.0) L* D 12/24/21 04:34 Chloride 110.3 mmol/L (98-107) H 12/24/21 04:34 Carbon Dioxide 31 mmol/L (22-30) H 12/24/21 04:34 Anion Gap 13 mmol/L 12/24/21 04:34 BUN 21 mg/dL (7-17) H 12/24/21 04:34 Creatinine 0.4 mg/dL (0.6-1.2) L 12/24/21 04:34 Estimated GFR > 60 ml/min 12/24/21 04:34 BUN/Creatinine Ratio 53 % 12/24/21 04:34 Glucose 145 mg/dL (65-100) H 12/24/21 04:34 POC Glucose 157 mg/dL (70-105) H 12/24/21 01:30 Lactic Acid 1.80 mmol/L (0.7-2.0) 12/23/21 03:25 Calcium 9.9 mg/dL (8.4-10.2) 12/24/21 04:34 Total Bilirubin 0.30 mg/dL (0.1-1.2) 12/24/21 04:34 AST 13 units/L (5-40) 12/24/21 04:34 ALT 11 units/L (7-56) 12/24/21 04:34 Alkaline Phosphatase 67 units/L (35-129) 12/24/21 04:34 Total Protein 7.5 g/dL (6.3-8.2) 12/24/21 04:34 Albumin 3.6 g/dL (3.9-5) L 12/24/21 04:34 Albumin/Globulin Ratio 0.9 % 12/24/21 04:34 Urine Color Yellow (Yellow) 12/23/21 01:54 Urine Turbidity Clear (Clear) 12/23/21 01:54 Urine pH 5.0 (5.0-7.0) 12/23/21 01:54 Ur Specific [place] 1.019 (1.003-1.030) 12/23/21 01:54 Urine Protein 30 mg/dl mg/dL (Negative) 12/23/21 01:54 Urine Glucose (UA) Neg mg/dL (Negative) 12/23/21 01:54 Urine Ketones Neg mg/dL (Negative) 12/23/21 01:54 Urine Blood Neg (Negative) 12/23/21 01:54 Urine Nitrite Neg (Negative) 12/23/21 01:54 Urine Bilirubin Neg (Negative) 12/23/21 01:54 Urine Urobilinogen 2.0 mg/dL (<2.0) 12/23/21 01:54 Ur Leukocyte Esterase Neg (Negative) 12/23/21 01:54 Urine WBC (Auto) 1.0 /HPF (0.0-6.0) 12/23/21 01:54 Urine RBC (Auto) 3.0 /HPF (0.0-6.0) 12/23/21 01:54 Urine Bacteria (Auto) 1+ /HPF (Negative) 12/23/21 01:54 Calcium Oxalate Crystal 1+ 12/23/21 01:54 Hyaline Casts 1 /LPF 12/23/21 01:54 Urine Mucus Few /HPF 12/23/21 01:54 Coronavirus (PCR) Negative (Negative) 12/23/21 10:22 Microbiology: Microbiology 12/23/21 00:38 Peripheral/Venous Blood Culture - Preliminary NO GROWTH AFTER 24 HOURS 12/23/21 00:33 Peripheral/Venous Blood Culture - Preliminary NO GROWTH AFTER 24 HOURS Rosales/IV: Voiding Method Incontinent Active Medications - Current Medications Current Medications: Generic Name Dose Route Start Last Admin Trade Name Freq PRN Reason Stop Dose Admin Acetaminophen 650 mg 12/23/21 05:30 Acetaminophen 325 Mg Tab PO Q4H PRN Pain MILD(1-3)/Fever >100.5/FERRARI Albuterol 2.5 mg 12/23/21 05:00 Albuterol 2.5 Mg/3 Ml Nebu IH Q3HRT PRN Shortness Of Breath Albuterol/Ipratropium 1 ampul 12/24/21 08:35 12/24/21 08:52 Ipratropium/Albuterol Sulfate 3 Ml Ampul.Neb IH 1 ampul BIDRT CONNIE Administration Dextrose 50 ml 12/23/21 05:30 Dextrose 50% In Water (25gm) 50 Ml Syringe IV Q30MIN PRN Hypoglycemia Protocol Famotidine 10 mg 12/23/21 10:00 12/24/21 09:29 Famotidine 20 Mg/2 Ml Inj IV 10 mg BID CONNIE Administration Heparin Sodium (Porcine) 5,000 unit 12/23/21 10:00 12/24/21 09:32 Heparin 5,000 Unit/1 Ml Vial SUB-Q 5,000 unit Q12HR CONNIE Administration Ceftriaxone Sodium 2 gm in 100 mls @ 200 mls/hr 12/23/21 22:00 12/23/21 22:49 Rocephin/Ns 2 Gm/100 Ml IV Infused Q24H CONNIE Infusion Protocol Potassium Chloride 10 meq in 100 mls @ 100 mls/hr 12/24/21 08:00 12/24/21 11:33 Kcl 10meq/100ml IV 12/24/21 11:59 100 mls/hr Q1H CONNIE Administration Sodium Chloride 1,000 mls @ 100 mls/hr 12/24/21 11:00 Nacl 0.45% 1000 Ml IV 12/24/21 20:59 DIRECT CONNIE Insulin Human Lispro 0 unit 12/23/21 06:00 12/24/21 11:29 Insulin Lispro 100 Unit/Ml SUB-Q Not Given Q6HR CONNIE Protocol Morphine Sulfate 2 mg 12/23/21 06:00 Morphine 2 Mg/1 Ml Inj IV Q4H PRN Pain, Moderate (4-6) Morphine Sulfate 4 mg 12/23/21 06:00 Morphine 4 Mg/1 Ml Inj IV Q4H PRN Pain , Severe (7-10) Ondansetron HCl 4 mg 12/23/21 05:30 Ondansetron 4 Mg/2 Ml Inj IV Q8H PRN Nausea And Vomiting Sodium Chloride 10 ml 12/23/21 10:00 12/24/21 09:32 Sodium Chloride 0.9% 10 Ml Flush Syringe IV 10 ml BID CONNIE Administration Sodium Chloride 10 ml 12/23/21 06:00 Sodium Chloride 0.9% 10 Ml Flush Syringe IV PRN PRN LINE FLUSH Nutrition/Malnutrition Assess - Dietary Evaluation Nutrition/Malnutrition Findings: Nutrition Notes Start: 12/23/21 17:37 Freq: Status: Active Protocol: Document 12/23/21 17:37 CARMEN (Rec: 12/23/21 17:54 CARMEN [id number]) Nutrition Notes Need for Assessment generated from: MD Order,Education Initial or Follow up Brief Note Current Diagnosis Diabetes,Sepsis,Hypertension, Respiratory Failure,Stroke Other Pertinent Diagnosis Metabolic Encephalopathy, GERD , Dementia, Hypernatremia, UTI . Current Diet TF-Glucerna 1.2 Sarbjit @ 35 ml/hr (since L 12/23). Height 5 ft 6 in Weight 65 kg [place] Body Weight (kg) 59.09 BMI 23.1 Intake Prior to Admission Good Weight change and time frame Pt denies having loss body weight STILL TENDER. Weight Status Appropriate Subjective/Other Information RD consult for nutrition education assessment. Pt has a PEG tube POA. TF ordered at admission by MD. Pt is on Nasal Cannula, O2 saturation @ 100%, according to Physical Assessment History notes. Pt is swallow impaired, according to Physical Assessment History notes. Pt is confused and non-verbal, according to Progress notes. Pt will be discharged to her SNF on 12/24, according to Progress notes. Pt needs total assistance with ADL activities, not a candidate for Nutrition Education. Percent of energy/protein needs met: Pt was on TF POA, MD ordered continuation: TF-Glucerna 1.2 Sarbjit @ 35 ml/hr. Nutrition Intervention Revisit per MD consult or patient Sign Off request: Additional Comments Continue monitoring TF tolerance and BM.
[2021-12-24] MEDS ORDERED: POTASSIUM CHLORIDE 20 MEQ PACKET FEEDTUBE NR (12:00)
[2021-12-24] MEDS: cefTRIAXone/NS 2 GM/100 ML 2 GM/100 ML BAG IV SCH (21:32)
[2021-12-25] MEDS: INSULIN LISPRO 100 UNIT/ML SUB-Q SCH ×3 (00:18→13:56)
[2021-12-25 05:34] LABS: Basophils # (Auto) 0.1 K/mm3 (0.0-0.1); Basophils % (Auto) 1.2 % (0.0-1.8); Eosinophils # (Auto) 0.4 K/mm3 (0.0-0.4); Eosinophils % (Auto) 4.5 % (0.0-4.3); Hematocrit 29.8 % (30.3-42.9); Hemoglobin 9.6 gm/dl (10.1-14.3); Lymphocytes # (Auto) 1.7 K/mm3 (1.2-5.4); Lymphocytes % (Auto) 17.9 % (13.4-35.0); Mean Corpuscular HGB Conc 32 % (30-34); Mean Corpuscular Volume 82 fl (79-97); Monocytes # (Auto) 0.5 K/mm3 (0.0-0.8); Monocytes % (Auto) 5.1 % (0.0-7.3); Platelet Count 311 K/mm3 (140-440); Red Blood Count 3.62 M/mm3 (3.65-5.03)
[2021-12-25 05:50] LABS: Blood Urea Nitrogen 18 mg/dL (7-17); Calcium 9.8 mg/dL (8.4-10.2); Hemolysis Index 1
[2021-12-25 06:01] LABS: BUN/Creatinine Ratio 45
[2021-12-25 06:04] LABS: Red Cell Distribution Width 20.1 % (13.2-15.2)
[2021-12-25] MEDS: IPRATROPIUM/ALBUTEROL SULFATE 3 ML AMPUL.NEB IH SCH (09:26)
[2021-12-25] MEDS: HEPARIN 5,000 UNIT/1 ML VIAL SUB-Q SCH (09:29)
[2021-12-25] MEDS: FAMOTIDINE 20 MG/2 ML INJ IV SCH (09:32)
--- NOTE | 2021-12-25 09:46 | Discharge Summary ---
Providers - Providers Date of Admission: 12/23/21 05:01 Date of discharge: 12/25/21 Attending physician: BALJIT DENISE MD 12/23/21 05:01 Consult to Dietitian/Nutrition [CONS] Routine Physician Instructions: Reason For Exam: Reason for Consult: Diet education 12/23/21 09:12 Physical Therapy Evaluation and Treat [CONS] Stat Comment: eval and treat Reason For Exam: Physical Therapy 12/24/21 13:03 Consult to Wound/ET Nurse [CONS] Routine Reason For Exam: wound eval, sacral decubitus Primary care physician: COBY DUNLAP Hospitalization Reason for admission: shortness of breath , acute metabolic encephalopathy Condition: Fair Hospital course: History of present illness: 86-year-old female with past medical history of hypertension, CVA, diabetes, GERD, renal disease was brought to the emergency room because of altered mental status. Per EMS the patient is nonverbal at baseline. Staff at [facility] reported that today the patient was found to be "more altered than normal." The patient was reportedly febrile to 106 F at the [place] [facility]. EMS arrived to find the patient hypoxic to approximately 90-91% on 6 L nasal cannula. Patient coughs occasionally but is nonverbal. In the emergency room patient is found to have sodium of 153 BUN of 32 creatini ne 0.6, glucose 185, lactic acid 3.70. Chest [id number] platelike atelectasis. No pneumothorax, so going to admit the patient and put the patient on IV fluid IV antibiotic we will send the urine for culture Hospital Course: 12/23: patient NAD on my encounter. 100% on 4L. She was present her back in October 2021 for similar admission. At the time the CXR appeared worse with findings consistent with volume overload. CXR this admission appears to be better without findings of fluid overload. D/w RN to coordinate with RT to begin weaning O2. Patient mental status is confused/nonverbal as she does have a history of stroke in her past. This appears to be her baseline. She is in no acute distress. Appears dehydrated. Will give 500 cc of volume and plan for potential d/c back to [facility] this afternoon or tomorrow morning. COVID PCR pening. Patient also has PEG tube, will initiated tubefeeding with glucerna. 12/24: Respiratory symptoms improved. Nasal cannula downtitrated to 2L/min, satting 98%. Hypernatremia still of concern, NA: 152. FWF initated at 250 cc/hr. Hypokalemic as well, replaced with 40 MEQ IV and 40 MEQ PEG supplementation. Recheck tomorrow on labs. Mentation showing some improvement. More responsive to stimuli. Likely discharge back to [facility] on monday. 12/25: Admitted for respiratory failure/community acquired pneumonia/sepsis poa as well as acute metabolic encephalopathy believed to be due to hypernatremia. Patient was initiated on antibiotics and improved. Hypernatremia resolved with rehydration and hypokalemia addressed with IV/PEG tube replacement. Patient mentation improved and more alert by the time of discharge. Will be discharged back to [facility] SNF with rx for azithromycin course and potassium 20 MEQ supplementation to be admin via peg tube x 5 days. Advise to obtain repeat bmp after 5th day OP. Assessment and Plan: #Acute metabolic encephalopathy (improved) Current Visit: Yes Status: Acute Plan to address problem: Admit the patient to the medical telemetry. Metabolic encephalopathy secondary to sepsis and hypoxia. We will put the patient on oxygen via nasal cannula 3 L/min. DuoNeb nebulizer every 4 hours. Rocephin 2 g IV daily. We will send the blood and urine for culture interval improvement, response to tactile stimuli Suspect in the setting of sepsis and hypernatremia/dehydration. # Sepsis POA Current Visit: Yes Status: Acute Plan to address problem: Rocephin 2 g IV daily. We will send the blood and urine for culture. Recheck CBC BMP in the morning Mild leukocytosis 12.4, hypoxic tachycardic on admission. source appears to be respiratory COVID PCR negative Continue abx for now. # Acute respiratory failure with hypoxia Current Visit: No Status: Acute Plan to address problem: Oxygen via nasal cannula 3 L/min. DuoNeb via nebulizer every 4 hours. Albuterol via nebulizer every 4 hours as needed Management as above #Community acquired pneumonia -treatment wit rocpehin/azithromycin -sputum culture/blood culture -supplemental O2. # Dementia Current Visit: No Status: Acute Plan to address problem: Stable. We continue the home medication. Outpatient follow-up with neurology # Hypernatremia Current Visit: No Status: Acute Plan to address problem: Half-normal saline at the rate of 100 cc/h, will d/c today FWF @250 cc/hr initiated #Hypertension Current Visit: No Status: Acute Plan to address problem: Hydralazine 10 mg IV every 6 hours as needed. We will continue the home medication #UTI (urinary tract infection) - rule out. Current Visit: No Status: Acute Plan to address problem: UA not indicated of UTI. # Type 2 diabetes mellitus Current Visit: No Status: Chronic Plan to address problem: Glucerna tube feeds Accu-Chek every 6 hours with Humalog moderate dose coverage. #History of CVA - prior cva, nonverbal at baseline - responds to physical stimuli. # DVT prophylaxis Current Visit: Yes Status: Acute Plan to address problem: Heparin 5000 units subcu every 12 hours for DVT prophylaxis. Pepcid 20 mg IV every 12 hours for GI prophylaxis. Patient is a full code Disposition: 03 [facility] Final Discharge Diagnosis (Prints w/discharge instructions): acute metabolic encephalopathy, acute hypoxic respiratory failure, hypernatremia, hypokalemia. Time spent for discharge: 35 Core Measure Documentation - Palliative Care Palliative Care/ Comfort Measures: Not Applicable - Core Measures Any of the following diagnoses?: none Exam - Physical Exam Narrative exam: General appearance: Present: no acute distress, well-nourished, on supplemental O2. - EENT Eyes: Present: PERRL ENT: hearing intact, clear oral mucosa - Neck Neck: Present: supple, normal ROM - Respiratory Respiratory effort: normal Respiratory: bilateral: diminished - Cardiovascular Heart Sounds: Present: S1 & S2. Absent: rub, click - Extremities Extremities: pulses symmetrical, No edema Peripheral Pulses: within normal limits - Abdominal General gastrointestinal: Present: soft, non-tender, non-distended, normal bowel sounds Female genitourinary: Present: normal - Integumentary Integumentary: Present: clear, warm, dry - Musculoskeletal Musculoskeletal: gait normal, strength equal bilaterally - Psychiatric Psychiatric: non verbal at baseline - Neurologic Neurologic: non verbal at baseline. Does not follow commands. - Constitutional Vitals: Temp Pulse Resp BP Pulse Ox 97.4 F L 91 H 18 144/76 99 12/25/21 05:06 12/25/21 05:06 12/25/21 05:06 12/25/21 05:06 12/25/21 05:06 Plan Plan of Treatment: Admitted for community acquired pneumonia/sepsis poa as well as acute metabolic encephalopathy believed to be due to hypernatremia. Patient was initiated on antibiotics and improved. Hypernatremia resolved with rehydration and hypokalemia addressed with IV/PEG tube replacement. Patient mentation improved and more alert by the time of discharge. Will be discharged back to [facility] with rx for azithromycin course and potassium 20 MEQ supplementation to be admin via peg tube x 5 days. Advise to obtain repeat bmp after 5th day OP. Follow up with: COBY DUNLAP MD [Primary Care Provider] - 3-5 Days Prescriptions: Potassium Chloride [KCl 20 meq ORAL LIQ] 20 meq FEEDTUBE QDAY 5 Days #1 bottle Azithromycin Oral Liqd [Zithromax 200 MG/5 ML ORAL LIQ] 250 mg FEEDTUBE QDAY 3 Days #1 bottle
[2021-12-25] MEDS ORDERED: POTASSIUM CHLORIDE 20 MEQ PACKET FEEDTUBE ONE (10:40)
[2021-12-25 11:32] VITALS: BP 149/80
== END 2021-12-25 15:55 | DRG 871 ==
LOC: ED 00:02 → 3A 05:01
PROVIDERS: ADMIT Hospitalist; ATTEND Internal Medicine
DX: A41.9 Sepsis, unspecified organism (principal); G93.41 Metabolic encephalopathy; J96.01 Acute respiratory failure with hypoxia; J18.9 Pneumonia, unspecified organism; N39.0 Urinary tract infection, site not specified; J98.11 Atelectasis; E87.0 Hyperosmolality and hypernatremia; Z20.822 Contact with and (suspected) exposure to COVID-19; I10 Essential (primary) hypertension; E11.9 Type 2 diabetes mellitus without complications; K21.9 Gastro-esophageal reflux disease without esophagitis; M19.90 Unspecified osteoarthritis, unspecified site; F03.90 Unspecified dementia, unspecified severity, without behavioral disturbance, psychotic disturbance, mood disturbance, and anxiety; E87.6 Hypokalemia; Z82.49 Family history of ischemic heart disease and other diseases of the circulatory system; Z86.73 Personal history of transient ischemic attack (TIA), and cerebral infarction without residual deficits
CPT/HCPCS: 36415; 71045; 80048; 80053; 81001; 82140; 82805; 82962; 83735; 85007; 85025; 87040; 87086; 94640; 94760; G0378; J3490; Q9967; J0456; J0696; J1644; J1815; J2270; J3480; J7030; U0003

== ENCOUNTER 2022-01-05 04:15 | Inpatient (IN) | payer MEDICARE ==
--- NOTE | 2022-01-05 05:16 | XRay Report ---
CHEST 1 VIEW INDICATION / CLINICAL INFORMATION: Dyspnea. COMPARISON: Chest x-ray 12/22/2021 CTA chest 10/25/2021 FINDINGS: SUPPORT DEVICES: None. HEART / MEDIASTINUM: No significant abnormality. LUNGS / PLEURA: Diffuse interstitial prominence remains present. No change from comparison study. Mil d bilateral hilar prominence likely vascular. BONES: No significant osseous abnormality. ADDITIONAL FINDINGS: No significant additional findings. IMPRESSION: 1. Similar pattern of interstitial prominence likely reflective of prior scarring or chronic disease. 2. Bilateral hilar prominence may reflect vascular prominence, adenopathy not excluded. Signer Name: Reece Suero II, MD Signed: 01/05/2022 5:12 AM Workstation Name: [id number]
[2022-01-05 05:26] LABS: Basophils % (Auto) 0.4 % (0.0-1.8); Eosinophils # (Auto) 0.2 K/mm3 (0.0-0.4); Eosinophils % (Auto) 2.2 % (0.0-4.3); Hematocrit 28.2 % (30.3-42.9); Hemoglobin 9.4 gm/dl (10.1-14.3); Lymphocytes # (Auto) 1.7 K/mm3 (1.2-5.4); Lymphocytes % (Auto) 18.5 % (13.4-35.0); Mean Corpuscular HGB Conc 34 % (30-34); Mean Corpuscular Volume 82 fl (79-97); Monocytes # (Auto) 0.5 K/mm3 (0.0-0.8); Monocytes % (Auto) 5.5 % (0.0-7.3); Platelet Count 418 K/mm3 (140-440); Red Blood Count 3.43 M/mm3 (3.65-5.03)
[2022-01-05 05:36] LABS: Red Cell Distribution Width 20.9 % (13.2-15.2)
[2022-01-05 05:38] LABS: INR 0.9 (0.87-1.13)
[2022-01-05 05:39] LABS: Partial Thromboplastin Time 24.9 Sec. (24.2-36.6)
[2022-01-05 05:43] LABS: Blood Urea Nitrogen 21 mg/dL (7-17); Calcium 10.6 mg/dL (8.4-10.2); Hemolysis Index 2
[2022-01-05 05:49] LABS: BUN/Creatinine Ratio 53
[2022-01-05 06:06] LABS: Chol/HDL Ratio 3.13 %; HDL Cholesterol 36 mg/dL (40-59); LDL Cholesterol,Direct 54 mg/dL (50-130)
--- NOTE | 2022-01-05 06:49 | Emergency Department Report ---
ED Shortness of Breath HPI - General Chief Complaint: Dyspnea/Respdistress Stated Complaint: ROBERT Time Seen by Provider: 01/05/22 06:10 Source: EMS Mode of arrival: Stretcher Limitations: Other - History of Present Illness Initial Comments: 86-year-old female with a history of dementia, diabetes, hypertension, GERD, seizure brought in from [facility] with shortness of breath that started this morning. History is very limited because of this patient medical condition. No fever or chill reported by EMS. No other modifying or associated factors rep orted. MD Complaint: shortness of breath - Related Data Home Medications Medication Instructions Recorded Confirmed Last Taken Ferrous Sulfate [Iron 325 MG] 325 mg PO DAILY 03/17/21 12/23/21 Unknown Lovastatin [Altoprev] 40 mg PO DAILY 03/17/21 12/23/21 Unknown Sennosides [Senna] 40 mg PO DAILY 03/17/21 12/23/21 Unknown allopurinoL [Zyloprim] 300 mg PO QDAY 03/17/21 12/23/21 Unknown amLODIPine 10 mg PO DAILY 03/17/21 12/23/21 Unknown Previous Rx's Medication Instructions Recorded Last Taken Type Aspirin [Adult Aspirin] 81 mg PO DAILY #30 tablet. 03/22/21 Unknown Rx Linagliptin [Tradjenta] 5 mg PO QAMDIAB #30 tablet 03/22/21 Unknown Rx Docusate Sodium [Colace ORAL LIQ] 100 mg FEEDTUBE BID #100 ml 11/04/21 Unknown Rx Insulin Glargine [Lantus VIAL] 10 units SUB-Q QHS #30 ml 11/04/21 Unknown Rx Lacosamide [Vimpat] 100 mg PO Q12HR #60 tablet 11/04/21 Unknown Rx Lansoprazole Solutab [Prevacid 30 mg FEEDTUBE QDAY #30 tab.rapdis 11/04/21 Unknown Rx Solutab] Sennosides/Docusate [Senokot S] 2 tab FEEDTUBE BID #30 tablet 11/04/21 Unknown Rx levETIRAcetam [Keppra] 1,000 mg FEEDTUBE BID #600 ml 11/04/21 Unknown Rx traMADoL [Ultram 50 MG tab] 225 mg PO Q6HR #20 tab 11/04/21 Unknown Rx Azithromycin Oral Liqd [Zithromax 250 mg FEEDTUBE QDAY 3 Days #1 12/25/21 Unk nown Rx 200 MG/5 ML ORAL LIQ] bottle Potassium Chloride [KCl 20 meq 20 meq FEEDTUBE QDAY 5 Days #1 12/25/21 Unknown Rx ORAL LIQ] bottle Allergies Allergy/AdvReac Type Severity Reaction Status Date / Time No Known Allergies Allergy Verified 03/15/21 10:30 ED Review of Systems ROS: Stated complaint: ROBERT Other details as noted in HPI Comment: All other systems reviewed and negative Respiratory: shortness of breath ED Past Medical Hx - Past Medical History Hx Hypertension: Yes Hx CVA: Yes Hx Diabetes: Yes Hx GERD: Yes Hx Renal Disease: Yes (JIMMY) Hx Arthritis: Yes (Gout) Hx Seizures: Yes Hx Dementia: Yes - Surgical History Additional Surgical History: Feeding tube - Social History Smoking Status: Never Smoker Substance Use Type: None - Medications Home Medications: Home Medications Medication Instructions Recorded Confirmed Last Taken Type Ferrous Sulfate [Iron 325 MG] 325 mg PO DAILY 03/17/21 12/23/21 Unknown History Lovastatin [Altoprev] 40 mg PO DAILY 03/17/21 12/23/21 Unknown History Sennosides [Senna] 40 mg PO DAILY 03/17/21 12/23/21 Unknown History allopurinoL [Zyloprim] 300 mg PO QDAY 03/17/21 12/23/21 Unknown History amLODIPine 10 mg PO DAILY 03/17/21 12/23/21 Unknown History Aspirin [Adult Aspirin] 81 mg PO DAILY #30 tablet. 03/22/21 12/23/21 Unknown Rx Linagliptin [Tradjenta] 5 mg PO QAMDIAB #30 tablet 03/22/21 12/23/21 Unknown Rx Docusate Sodium [Colace ORAL LIQ] 100 mg FEEDTUBE BID #100 ml 11/04/21 12/23/21 Unknown Rx Insulin Glargine [Lantus VIAL] 10 units SUB-Q QHS #30 ml 11/04/21 12/23/21 Unknown Rx Lacosamide [Vimpat] 100 mg PO Q12HR #60 tablet 11/04/21 12/23/21 Unknown Rx Lansoprazole Solutab [Prevacid 30 mg FEEDTUBE QDAY #30 tab.rapdis 11/04/21 12/23/21 Unknown Rx Solutab] Sennosides/Docusate [Senokot S] 2 tab FEEDTUBE BID #30 tablet 11/04/21 12/23/21 Unknown Rx levETIRAcetam [Keppra] 1,000 mg FEEDTUBE BID #600 ml 11/04/21 12/23/21 Unknown Rx traMADoL [Ultram 50 MG tab] 225 mg PO Q6HR #20 tab 11/04/21 12/23/21 Unknown Rx Azithromycin Oral Liqd [Zithromax 250 mg FEEDTUBE QDAY 3 Days #1 12/25/21 Unknown Rx 200 MG/5 ML ORAL LIQ] bottle Potassium Chloride [KCl 20 meq 20 meq FEEDTUBE QDAY 5 Days #1 12/25/21 Unknown Rx ORAL LIQ] bottle ED Physical Exam - General Limitations: Other (Dementia) General appearance: alert, in no apparent distress - Head Head exam: Present: atraumatic - Eye Eye exam: Present: normal appearance - ENT ENT exam: Present: mucous membranes dry - Neck Neck exam: Present: normal inspection. Absent: tenderness - Respiratory Respiratory exam: Present: normal lung sounds bilaterally. Absent: respiratory distress, accessory muscle use - Cardiovascular Cardiovascular Exam: Present: regular rate, normal rhythm, normal heart sounds - GI/Abdominal GI/Abdominal exam: Present: soft, normal bowel sounds, other (J-tube noted) - Extremities Exam Extremities exam: Present: normal capillary refill. Absent: tenderness - Back Exam Back exam: Absent: tenderness - Neurological Exam Neurological exam: Present: alert, other (Demented) - Psychiatric Psychiatric exam: Present: flat affect - Skin Skin exam: Present: warm, normal color ED Course Vital Signs 01/05/22 01/05/22 01/05/22 04:37 04:45 07:29 Temperature 97.7 F Pulse Rate 103 H 112 H Respiratory 18 20 Rate Blood Pressure 174/94 Blood Pressure 164/93 [Right] O2 Sat by Pulse 100 100 100 Oximetry 01/05/22 01/05/22 01/05/22 09:48 11:13 13:05 Temperature 97.2 F L Pulse Rate 107 H 101 H 106 H Respiratory 15 18 19 Rate Blood Pressure Blood Pressure 155/86 157/94 151/92 [Right] O2 Sat by Pulse 100 97 99 Oximetry - Reevaluation(s) Reevaluation #1: 01/05/22 06:49 Brought her in EMS with shortness of breath that started this morning--because of this patient dementia history is very limited--so we will go ahead and expand on differential that will include but not limited to pneumonia, myocardial infarction, acid reflux, aspiration pneumonia, UTI or any other systemic infection--so in order to rule out the above we will go ahead and order routine labs including CBC, CMP, UA, chest x-ray, troponin and EKG. Reevaluation #2: 01/05/22 12:13 Labs reviewed and noted with slightly elevated BUN/Cr likely as a result of dehydration--given ivf ns 1L bolus x 1-- and will continue to monitor Also with elevated initial troponin but the next 2 serial trending down -- likely non cardiac Reevaluation #3: 01/05/22 14:28 pt continue to be tachycardiac and hypertensive with no source of infection--also with normal lactic acid-- UA negative for urine leukocytes or nitrites-- 01/05/22 14:34 Reevaluation #4: 01/05/22 14:30 also noted with mild anemia -- without any history of hemetemesis or hematochezia--this likely chronic-- 01/05/22 14:34 01/05/22 14:34 D-dimer pending at this point to rule out any PE-- Pt signed out to Dr Grossman who accept pt for further evaluation and treatment ED Medical Decision Making - Lab Data Result diagrams: 01/05/22 04:57 01/05/22 04:57 - Medical Decision Making See progress note for detail - Differential Diagnosis See progress note for detail Critical care attestation.: If time is entered above; I have spent that time in minutes in the direct care of this critically ill patient, excluding procedure time. ED Disposition Clinical Impression: Shortness of breath, Tachycardia Anemia Qualifiers: Anemia type: unspecified type Qualified Code(s): D64.9 - Anemia, unspecified Disposition: 09 ADMITTED INPATIENT Is pt being admited?: Yes Does the pt Need Aspirin: No Condition: Stable Referrals: PRIMARY CARE, [Primary Care Provider] - 3-5 Days Time of Disposition: 14:36 (Dr Grossman consulted who accept pt for further evaluation)
[2022-01-05 08:02] LABS: Alanine Aminotransferase 18 units/L (7-56); Albumin 3.8 g/dL (3.9-5)
[2022-01-05 08:11] LABS: Bilirubin,Direct < 0.2 mg/dL (0-0.2)
--- NOTE | 2022-01-05 08:14 | Cat Scan Report ---
CT CHEST WITHOUT CONTRAST INDICATION / CLINICAL INFORMATION: Shortness of breath with noted possible scarring. TECHNIQUE: Axial CT images were obtained through the chest without contrast. All CT scans at this [facility] are performed using CT dose reduction for ALARA by means of automated exposure control. COMPARISON: CT dated 10/25/21 FINDINGS: HEART: No significant abnormality. CORONARY ARTERY CALCIFICATION: Present -- Moderate. Probable right coronary artery stent. THORACIC AORTA: Mild atherosclerotic calcification without acute abnormality. MEDIASTINUM / LISSETTE: No significant abnormality. PLEURA: No pleural effusion. No pneumothorax. LUNGS: No acute airspace disease. Bilateral upper and lower lobe parenchymal scarring, especially in the posterior lung bases. Scarring is in location of previous airspace disease. ADDITIONAL FINDINGS: None. UPPER ABDOMEN: No significant abnormality. SKELETAL SYSTEM: No significant abnormality. IMPRESSION: 1. Bilateral pulmonary parenchymal scarring secondary to previous pneumonia. No acute airspace diseas e. Signer Name: Hortensia Connor MD Signed: 01/05/2022 8:10 AM Workstation Name: [id number]
[2022-01-05 14:06] LABS: Bilirubin,Urine NEG (Negative); Blood,Urine NEG (Negative); Color,Urine Yellow (Yellow); Protein,Urine <15 mg/dL mg/dL (Negative); RBC,Urine < 1.0 /HPF (0.0-6.0); Urobilinogen,Urine < 2.0 mg/dL (<2.0); WBC,Urine < 1.0 /HPF (0.0-6.0)
[2022-01-05] MEDS ORDERED: SODIUM CHLORIDE 0.9% 1000 ML 1,000 ML ONE (14:46)
--- NOTE | 2022-01-05 20:03 | History and Physical Report ---
History of Present Illness Date of examination: 01/05/22 Date of admission: 01/05/2022 Chief complaint: Shortness of breath for 1 day History of present illness: 86-year-old with history of dementia, seizure disorder and GERD sent in from [facility] for shortness of breath since a.m. Cough present. History limited because of the patient's dementia. Patient sent by her [facility] for evaluation of shortness of breath. Patient was not hypoxic at the time of ad mission. Chest x-ray showed bilateral and doubtful pneumonia. - Past Medical History --Hypertension: Yes --CVA: Yes --Diabetes: Yes --GERD: Yes --Renal Disease: Yes (JIMMY) --Arthritis: Yes (Gout) --Seizures: Yes --Dementia: Yes - Surgical History --Additional Surgical History: Feeding tube - Social History --Smoking Status: Never Smoker --Substance Use Type: None - Medications --Home Medications: Home Medications Medication Instructions Recorded Confirmed Last Taken Type Ferrous Sulfate [Iron 325 MG] 325 mg PO DAILY 03/17/21 12/23/21 Unknown History Lovastatin [Altoprev] 40 mg PO DAILY 03/17/21 12/23/21 Unknown History Sennosides [Senna] 40 mg PO DAILY 03/17/21 12/23/21 Unknown History allopurinoL [Zyloprim] 300 mg PO QDAY 03/17/21 12/23/21 Unknown History amLODIPine 10 mg PO DAILY 03/17/21 12/23/21 Unknown History Aspirin [Adult Aspirin] 81 mg PO DAILY #30 tablet. 03/22/21 12/23/21 Unknown Rx Linagliptin [Tradjenta] 5 mg PO QAMDIAB #30 tablet 03/22/21 12/23/21 Unknown Rx Docusate Sodium [Colace ORAL LIQ] 100 mg FEEDTUBE BID #100 ml 11/04/21 12/23/21 Unknown Rx Insulin Glargine [Lantus VIAL] 10 units SUB-Q QHS #30 ml 11/04/21 12/23/21 Unknown Rx Lacosamide [Vimpat] 100 mg PO Q12HR #60 tablet 11/04/21 12/23/21 Unknown Rx Lansoprazole Solutab [Prevacid 30 mg FEEDTUBE QDAY #30 tab.rapdis 11/04/21 12/23/21 Unknown Rx Solutab] Sennosides/Docusate [Senokot S] 2 tab FEEDTUBE BID #30 tablet 11/04/21 12/23/21 Unknown Rx levETIRAcetam [Keppra] 1,000 mg FEEDTUBE BID #600 ml 11/04/21 12/23/21 Unknown Rx traMADoL [Ultram 50 MG tab] 225 mg PO Q6HR #20 tab 11/04/21 12/23/21 Unknown Rx Azithromycin Oral Liqd [Zithromax 250 mg FEEDTUBE QDAY 3 Days #1 12/25/21 Unknown Rx 200 MG/5 ML ORAL LIQ] bottle Potassium Chloride [KCl 20 meq 20 meq FEEDTUBE QDAY 5 Days #1 12/25/21 Unknown Rx ORAL LIQ] bottle Review of Systems ROS: Stated complaint: ROBERT Other details as noted in HPI Comment: All other systems reviewed and negative Respiratory: shortness of breath Medications and Allergies Allergies Allergy/AdvReac Type Severity Reaction Status Date / Time No Known Allergies Allergy Verified 03/15/21 10:30 Home Medications Medication Instructions Recorded Confirmed Last Taken Type Ferrous Sulfate [Iron 325 MG] 325 mg PO DAILY 03/17/21 01/06/22 Unknown History Lovastatin [Altoprev] 40 mg PO DAILY 03/17/21 01/06/22 Unknown History Sennosides [Senna] 40 mg PO DAILY 03/17/21 01/06/22 Unknown History allopurinoL [Zyloprim] 300 mg PO QDAY 03/17/21 01/06/22 Unknown History amLODIPine 10 mg PO DAILY 03/17/21 01/06/22 Unknown History Aspirin [Adult Aspirin] 81 mg PO DAILY #30 tablet. 03/22/21 01/06/22 Unknown Rx Linagliptin [Tradjenta] 5 mg PO QAMDIAB #30 tablet 03/22/21 01/06/22 Unknown Rx Docusate Sodium [Colace ORAL LIQ] 100 mg FEEDTUBE BID #100 ml 11/04/21 01/06/22 Unknown Rx Insulin Glargine [Lantus VIAL] 10 units SUB-Q QHS #30 ml 11/04/21 01/06/22 Unknown Rx Lacosamide [Vimpat] 100 mg PO Q12HR #60 tablet 11/04/21 01/06/22 Unknown Rx Lansoprazole Solutab [Prevacid 30 mg FEEDTUBE QDAY #30 tab.rapdis 11/04/21 01/06/22 Unknown Rx Solutab] Sennosides/Docusate [Senokot S] 2 tab FEEDTUBE BID #30 tablet 11/04/21 01/06/22 Unknown Rx levETIRAcetam [Keppra] 1,000 mg FEEDTUBE BID #600 ml 11/04/21 01/06/22 Unknown Rx traMADoL [Ultram 50 MG tab] 225 mg PO Q6HR #20 tab 11/04/21 01/06/22 Unknown Rx Azithromycin Oral Liqd [Zithromax 250 mg FEEDTUBE QDAY 3 Days #1 12/25/21 01/06/22 Unknown Rx 200 MG/5 ML ORAL LIQ] bottle Potassium Chloride [KCl 20 meq 20 meq FEEDTUBE QDAY 5 Days #1 12/25/21 01/06/22 Unknown Rx ORAL LIQ] bottle Exam - Constitutional Vitals: Temp Pulse Resp BP Pulse Ox 97.2 F L 86 15 162/85 99 01/05/22 13:05 01/05/22 18:58 01/05/22 18:58 01/05/22 18:58 01/05/22 18:58 General appearance: Present: no acute distress, well-nourished - EENT Eyes: Present: PERRL ENT: hearing intact, clear oral mucosa - Neck Neck: Present: supple, normal ROM - Respiratory Respiratory effort: normal Respiratory: bilateral: CTA, rhonchi (Scattered) - Cardiovascular Heart rate: 76 Rhythm: regular Heart Sounds: Present: S1 & S2. Absent: rub, click - Extremities Extremities: pulses symmetrical, No edema Peripheral Pulses: within normal limits - Abdominal General gastrointestinal: Present: soft, non-tender, non-distended, normal bowel sounds Female genitourinary: Present: normal - Integumentary Integumentary: Present: clear, warm, dry - Musculoskeletal Musculoskeletal: gait normal, strength equal bilaterally - Psychiatric Psychiatric: appropriate mood/affect, intact judgment & insight - Neurologic Neurologic: CNII-XII intact, moves all extremities - Allied Health Allied health notes reviewed: nursing, case management HEART Score - HEART Score History: Moderately suspicious Age: > 65 Risk factors: > 3 risk factors or hx of atherosclerotic disease Troponin: Troponin T 0.059 ng/mL (0.00-0.029) H 01/05/22 10:34 Troponin: 1-3x normal limit - Critical Actions Critical Actions: 4-6 pts:12-16.6% risk of adverse cardiac event. Should be admitted Results - Labs CBC & Chem 7: 01/06/22 04:16 01/06/22 04:16 Labs: Laboratory Last Values WBC 9.3 K/mm3 (4.5-11.0) 01/05/22 04:57 RBC 3.43 M/mm3 (3.65-5.03) L 01/05/22 04:57 Hgb 9.4 gm/dl (10.1-14.3) L 01/05/22 04:57 Hct 28.2 % (30.3-42.9) L 01/05/22 04:57 MCV 82 fl (79-97) 01/05/22 04:57 MCH 28 pg (28-32) 01/05/22 04:57 MCHC 34 % (30-34) 01/05/22 04:57 RDW 20.9 % (13.2-15.2) H 01/05/22 04:57 Plt Count 418 K/mm3 (140-440) 01/05/22 04:57 Lymph % (Auto) 18.5 % (13.4-35.0) 01/05/22 04:57 [place] % (Auto) 5.5 % (0.0-7.3) 01/05/22 04:57 Eos % (Auto) 2.2 % (0.0-4.3) 01/05/22 04:57 Baso % (Auto) 0.4 % (0.0-1.8) 01/05/22 04:57 Lymph # (Auto) 1.7 K/mm3 (1.2-5.4) 01/05/22 04:57 [place] # (Auto) 0.5 K/mm3 (0.0-0.8) 01/05/22 04:57 Eos # (Auto) 0.2 K/mm3 (0.0-0.4) 01/05/22 04:57 Baso # (Auto) 0.0 K/mm3 (0.0-0.1) 01/05/22 04:57 Seg Neutrophils % 73.4 % (40.0-70.0) H 01/05/22 04:57 Seg Neutrophils # 6.8 K/mm3 (1.8-7.7) 01/05/22 04:57 PT 13.1 Sec. (12.2-14.9) 01/05/22 04:57 INR 0.90 (0.87-1.13) 01/05/22 04:57 APTT 24.9 Sec. (24.2-36.6) 01/05/22 04:57 D-Dimer 839.18 ng/mlDDU (0-234) H 01/05/22 14:43 Sodium 138 mmol/L (137-145) 01/05/22 04:57 Potassium 4.0 mmol/L (3.6-5.0) 01/05/22 04:57 Chloride 97.1 mmol/L (98-107) L 01/05/22 04:57 Carbon Dioxide 28 mmol/L (22-30) 01/05/22 04:57 Anion Gap 17 mmol/L 01/05/22 04:57 BUN 21 mg/dL (7-17) H 01/05/22 04:57 Creatinine 0.4 mg/dL (0.6-1.2) L 01/05/22 04:57 Estimated GFR > 60 ml/min 01/05/22 04:57 BUN/Creatinine Ratio 53 % 01/05/22 04:57 Glucose 131 mg/dL (65-100) H 01/05/22 04:57 Lactic Acid 1.90 mmol/L (0.7-2.0) 01/05/22 04:57 Calcium 10.6 mg/dL (8.4-10.2) H 01/05/22 04:57 Total Bilirubin 0.20 mg/dL (0.1-1.2) 01/05/22 07:14 Direct Bilirubin < 0.2 mg/dL (0-0.2) 01/05/22 07:14 Indirect Bilirubin 0.0 mg/dL 01/05/22 07:14 AST 14 units/L (5-40) 01/05/22 07:14 ALT 18 units/L (7-56) 01/05/22 07:14 Alkaline Phosphatase 68 units/L (35-129) 01/05/22 07:14 Troponin T 0.059 ng/mL (0.00-0.029) H 01/05/22 10:34 NT-Pro-B Natriuret Pep 211.1 pg/mL (0-900) 01/05/22 04:57 Total Protein 8.2 g/dL (6.3-8.2) 01/05/22 07:14 Albumin 3.8 g/dL (3.9-5) L 01/05/22 07:14 Albumin/Globulin Ratio 0.9 % 01/05/22 07:14 Triglycerides 132 mg/dL (2-149) 01/05/22 04:57 Cholesterol 113 mg/dL (50-199) 01/05/22 04:57 LDL Cholesterol Direct 54 mg/dL (50-130) 01/05/22 04:57 HDL Cholesterol 36 mg/dL (40-59) L 01/05/22 04:57 Cholesterol/HDL Ratio 3.13 % 01/05/22 04:57 Urine Color Yellow (Yellow) 01/05/22 13:18 Urine Turbidity Hazy (Clear) 01/05/22 13:18 Urine pH 8.0 (5.0-7.0) H 01/05/22 13:18 Ur Specific Fabius 1.011 (1.003-1.030) 01/05/22 13:18 Urine Protein <15 mg/dl mg/dL (Negative) 01/05/22 13:18 Urine Glucose (UA) Neg mg/dL (Negative) 01/05/22 13:18 Urine Ketones Neg mg/dL (Negative) 01/05/22 13:18 Urine Blood Neg (Negative) 01/05/22 13:18 Urine Nitrite Neg (Negative) 01/05/22 13:18 Urine Bilirubin Neg (Negative) 01/05/22 13:18 Urine Urobilinogen < 2.0 mg/dL (<2.0) 01/05/22 13:18 Ur Leukocyte Esterase Neg (Negative) 01/05/22 13:18 Urine WBC (Auto) < 1.0 /HPF (0.0-6.0) 01/05/22 13:18 Urine RBC (Auto) < 1.0 /HPF (0.0-6.0) 01/05/22 13:18 Short CBC 01/06/22 Range/Units 04:16 WBC 10.2 (4.5-11.0) K/mm3 Hgb 10.4 (10.1-14.3) gm/dl Hct 32.6 (30.3-42.9) % Plt Count 408 (140-440) K/mm3 BMP 01/06/22 04:16 Sodium 141 Potassium 4.1 Chloride 103.4 Carbon Dioxide 27 BUN 17 Creatinine 0.5 L Glucose 170 H Calcium 9.9 Cardiac Enzymes 01/05/22 01/05/22 01/05/22 Range/Units 07:14 10:34 20:16 Total Creatine Kinase 52 (30-135) units/L CK-MB (CK-2) 1.0 (0.0-4.0) ng/mL Troponin T 0.053 H 0.059 H 0.064 H (0.00-0.029) ng/mL 01/06/22 Range/Units 04:16 Total Creatine Kinase 43 (30-135) units/L CK-MB (CK-2) 1.1 (0.0-4.0) ng/mL Troponin T 0.070 H (0.00-0.029) ng/mL Liver Function 01/05/22 01/06/22 Range/Units 07:14 04:16 Total Bilirubin 0.20 0.20 (0.1-1.2) mg/dL Direct Bilirubin < 0.2 (0-0.2) mg/dL AST 14 16 (5-40) units/L ALT 18 17 (7-56) units/L Alkaline Phosphatase 68 67 (35-129) units/L Albumin 3.8 L 4.0 (3.9-5) g/dL Urine 01/05/22 Range/Units 13:18 Urine Color Yellow (Yellow) Urine pH 8.0 H (5.0-7.0) Ur Specific Fabius 1.011 (1.003-1.030) Urine Protein <15 mg/dl (Negative) mg/dL Urine Glucose (UA) Neg (Negative) mg/dL Microbiology: Microbiology 01/05/22 04:57 Peripheral/Venous Blood Culture - Preliminary Culture in Progress 01/05/22 04:51 Peripheral/Venous Blood Culture - Preliminary Culture in Progress - Imaging and Cardiology EKG: report reviewed (Sinus rhythm no acute ST-T wave changes) Imaging and Cardiology: Chest x-ray Similar pattern of interstitial prominence likely reflecting prior scarring or chronic disease Bilateral hilar prominence may reflect vascular prominence, adenopathy not excluded Chest CT Bilateral pulmonary parenchymal scarring secondary to previous pneumonia. No acute airspace disease Assessment and Plan Advance Directives: Yes (Full code) VTE prophylaxis?: Chemical Plan of care discussed with patient/family: Yes - Patient Problems (1) Bilateral pneumonia Current Visit: No Status: Acute Plan to address problem: Treat empirically with ceftriaxone and azithromycin COVID test in the morning Admission for 24 to 48 hours Oxygen supplementation as necessary (2) Dehydration Current Visit: Yes Status: Acute Plan to address problem: IV fluids for now (3) Elevated troponin Current Visit: Yes Status: Acute Plan to address problem: CK MB is normal Cardiology consult Possible troponin leak (4) IDDM (insulin dependent diabetes mellitus) Current Visit: Yes Status: Chronic Plan to address problem: Continue home insulin and coverage Check hemoglobin A1c Adjust insulin as necessary (5) HLD (hyperlipidemia) Current Visit: Yes Status: Chronic Qualifiers: Hyperlipidemia type: mixed hyperlipidemia Qualified Code(s): E78.2 - Mixed hyperlipidemia Plan to address problem: Continue statins (6) Seizure disorder Current Visit: Yes Status: Chronic Plan to address problem: Continue Vimpat and Keppra (7) Gout Current Visit: Yes Status: Chronic Plan to address problem: Continue allopurinol for prevention of gout (8) DVT prophylaxis Current Visit: Yes Status: Acute Plan to address problem: On anticoagulation and GI prophylaxis (9) Advance care planning Current Visit: Yes Status: Acute Plan to address problem: Disease education conducted, care plan discussed, diagnosis discussed, prognosis discussed. Patient is full code. Patient acknowledged understanding and agreement with care plan. +30 minutes.
[2022-01-05] MEDS ORDERED: ONDANSETRON 4 MG/2 ML INJ IV PRN (20:17)
[2022-01-05] MEDS ORDERED: ACETAMINOPHEN 325 MG TAB PO PRN (20:17)
[2022-01-05] MEDS ORDERED: METOCLOPRAMIDE 10 MG/2 ML INJ IV PRN (20:21)
[2022-01-05] MEDS ORDERED: MORPHINE 2 MG/1 ML INJ IV PRN (20:21)
[2022-01-05] MEDS ORDERED: IPRATROPIUM/ALBUTEROL SULFATE 3 ML AMPUL.NEB IH PRN (20:23)
[2022-01-05] MEDS ORDERED: AZITHROMYCIN/NS 500 MG/250 ML 500 MG/250 ML BAG IV SCH (21:00)
[2022-01-05] MEDS: LACOSAMIDE 100 MG TAB PO SCH (21:41)
[2022-01-05] MEDS: cefTRIAXone/NS 2 GM/100 ML 2 GM/100 ML BAG IV SCH (23:38)
[2022-01-05] MEDS: SODIUM CHLORIDE 0.9% 1000 ML 1,000 ML IV SCH (23:38)
[2022-01-05] MEDS: POTASSIUM CHLORIDE 20 MEQ PACKET FEEDTUBE SCH (23:39)
[2022-01-05] MEDS: DOCUSATE SODIUM 100 MG/10 ML ORAL LIQD FEEDTUBE SCH (23:39)
[2022-01-05] MEDS: ASPIRIN EC 81 MG TAB PO SCH (23:39)
[2022-01-05] MEDS: dexAMETHasone 4 MG/ML VIAL IV SCH (23:39)
[2022-01-05] MEDS: HEPARIN 5,000 UNIT/1 ML VIAL SUB-Q SCH (23:39)
[2022-01-05] MEDS: levETIRAcetam 500 MG/5 ML ORAL LIQD FEEDTUBE SCH (23:39)
[2022-01-05] MEDS: FERROUS SULFATE 325 MG TAB PO SCH (23:40)
[2022-01-05] MEDS: amLODIPine 10 MG TAB PO SCH (23:55)
[2022-01-06] MEDS ORDERED: hydrALAZINE 20 MG/1 ML INJ IV PRN (00:06)
[2022-01-06] MEDS: allopurinoL 300 MG TAB PO SCH ×2 (00:21→10:37)
[2022-01-06] MEDS: INSULIN GLARGINE 100 UNITS/ML SUB-Q SCH ×2 (00:23→21:54)
[2022-01-06 04:54] LABS: Hematocrit 32.6 % (30.3-42.9); Hemoglobin 10.4 gm/dl (10.1-14.3); Mean Corpuscular HGB Conc 32 % (30-34); Mean Corpuscular Volume 83 fl (79-97); Platelet Count 408 K/mm3 (140-440); Red Blood Count 3.92 M/mm3 (3.65-5.03)
[2022-01-06 04:57] LABS: Red Cell Distribution Width 21.5 % (13.2-15.2)
[2022-01-06 05:07] LABS: Creatine Kinase MB 1.1 ng/mL (0.0-4.0)
[2022-01-06 05:10] LABS: Alanine Aminotransferase 17 units/L (7-56); Blood Urea Nitrogen 17 mg/dL (7-17); Calcium 9.9 mg/dL (8.4-10.2); Hemolysis Index 0
[2022-01-06 05:33] LABS: BUN/Creatinine Ratio 34
[2022-01-06 06:07] LABS: Basophils % (Manual) 0 % (0.0-1.8); Eosinophils % (Manual) 0 % (0.0-4.3); Total Cells Counted 100
[2022-01-06 06:08] LABS: Anisocytosis 1+; Hypochromasia 1+; Platelet Estimate Consistent w Auto
[2022-01-06] MEDS ORDERED: IPRATROPIUM/ALBUTEROL SULFATE 3 ML AMPUL.NEB IH SCH (08:00)
--- NOTE | 2022-01-06 08:55 | Progress Note ---
Assessment and Plan Assessment and plan: Chest x-ray Similar pattern of interstitial prominence likely reflecting prior scarring or chronic disease Bilateral hilar prominence may reflect vascular prominence, adenopathy not excluded Chest CT Bilateral pulmonary parenchymal scarring secondary to previous pneumonia. No acute airspace disease Assessment and plan Advance Directives: Yes (Full code) VTE prophylaxis?: Chemical Plan of care discussed with patient/family: Yes - Patient Problems -- Bilateral pneumonia community-acquired Oxygen titrate O2 sats to more than 90% Continue empiric antibiotics ceftriaxone and azithromycin COVID test in the morning --PUI/high suspicion for COVID 19; Isolation, check shane PCR test --Dehydration IV fluids for now encourage oral liquids -- Elevated troponin/non-ST elevation NM CK MB is normal However patient has multiple risk factors Follow cardiology evaluation recommendation --Elevated D-dimers- IDDM (insulin dependent diabetes mellitus) Accu-Chek, sliding scale coverage, ADA diet, insulin as needed Check hemoglobin A1c Adjust insulin as necessary -- HLD (hyperlipidemia) Continue statins, low-cholesterol diet --History of seizure disorder Seizure precautions, do not drive until cleared by neurology Continue Vimpat and Keppra --History of gout Continue allopurinol for prevention of gout --DVT prophylaxis On anticoagulation and GI prophylaxis --Advance care planning Disease education conducted, care plan discussed, diagnosis discussed, prognosis discussed. Patient is full code. Patient acknowledged understanding and agreement with care plan. +30 minutes. We will closely monitor the patient and adjust the management as needed DC planning per case management; discharge back to [facility] when stable Disposition; follow clinically, follow shane PCR test, CTA chest, lower extremity Doppler Discharge when medically stable History Interval history: I have seen and examined the patient at the bedside Patient's chart and medications reviewed Was admitted with bilateral pneumonia started on empiric antibiotics Shane PCR test is done, patient is chronically ill looking cachectic Noncommunicative Vital signs noted Hospitalist Physical - Constitutional Vitals: Temp Pulse Resp BP Pulse Ox 97.6 F 96 H 12 141/70 100 01/06/22 04:42 01/05/22 23:30 01/06/22 04:42 01/06/22 04:42 01/05/22 23:30 General appearance: Present: mild distress, well-nourished, other (Nonco mmunicative) - EENT Eyes: Present: PERRL, EOM intact - Neck Neck: Present: supple, normal ROM - Respiratory Respiratory effort: normal Respiratory: bilateral: diminished, negative: rales, rhonchi, wheezing - Cardiovascular Rhythm: regular Heart Sounds: Present: S1 & S2 - Extremities Extremities: no ischemia, No edema - Abdominal General gastrointestinal: soft, non-tender, non-distended, normal bowel sounds - Integumentary Integumentary: Present: clear, warm - Psychiatric Psychiatric: cooperative, other - Neurologic Neurologic: moves all extremities (Confused at times) HEART Score - HEART Score Age: > 65 Risk factors: > 3 risk factors or hx of atherosclerotic disease Troponin: Troponin T 0.070 ng/mL (0.00-0.029) H 01/06/22 04:16 Troponin: 1-3x normal limit - Critical Actions Critical Actions: 4-6 pts:12-16.6% risk of adverse cardiac event. Should be admitted Results - Labs CBC & Chem 7: 01/06/22 04:16 01/06/22 04:16 Labs: Laboratory Last Values WBC 10.2 K/mm3 (4.5-11.0) 01/06/22 04:16 RBC 3.92 M/mm3 (3.65-5.03) 01/06/22 04:16 Hgb 10.4 gm/dl (10.1-14.3) 01/06/22 04:16 Hct 32.6 % (30.3-42.9) 01/06/22 04:16 MCV 83 fl (79-97) 01/06/22 04:16 MCH 26 pg (28-32) L 01/06/22 04:16 MCHC 32 % (30-34) 01/06/22 04:16 RDW 21.5 % (13.2-15.2) H 01/06/22 04:16 Plt Count 408 K/mm3 (140-440) 01/06/22 04:16 Lymph % (Auto) 18.5 % (13.4-35.0) 01/05/22 04:57 [place] % (Auto) 5.5 % (0.0-7.3) 01/05/22 04:57 Eos % (Auto) 2.2 % (0.0-4.3) 01/05/22 04:57 Baso % (Auto) 0.4 % (0.0-1.8) 01/05/22 04:57 Lymph # (Auto) 1.7 K/mm3 (1.2-5.4) 01/05/22 04:57 [place] # (Auto) 0.5 K/mm3 (0.0-0.8) 01/05/22 04:57 Eos # (Auto) 0.2 K/mm3 (0.0-0.4) 01/05/22 04:57 Baso # (Auto) 0.0 K/mm3 (0.0-0.1) 01/05/22 04:57 Add Manual Diff Complete 01/06/22 04:16 Total Counted 100 01/06/22 04:16 Seg Neutrophils % [employer] 01/06/22 04:16 Seg Neuts % (Manual) 95.0 % (40.0-70.0) H 01/06/22 04:16 Band Neutrophils % 0 % 01/06/22 04:16 Lymphocytes % (Manual) 4.0 % (13.4-35.0) L 01/06/22 04:16 Reactive Lymphs % (Man) 0 % 01/06/22 04:16 Monocytes % (Manual) 1.0 % (0.0-7.3) 01/06/22 04:16 Eosinophils % (Manual) 0 % (0.0-4.3) 01/06/22 04:16 Basophils % (Manual) 0 % (0.0-1.8) 01/06/22 04:16 Metamyelocytes % 0 % 01/06/22 04:16 Myelocytes % 0 % 01/06/22 04:16 Promyelocytes % 0 % 01/06/22 04:16 Blast Cells % 0 % 01/06/22 04:16 Nucleated RBC % Not Reportable 01/06/22 04:16 Seg Neutrophils # 6.8 K/mm3 (1.8-7.7) 01/05/22 04:57 Seg Neutrophils # Man 9.7 K/mm3 (1.8-7.7) H 01/06/22 04:16 Band Neutrophils # 0.0 K/mm3 01/06/22 04:16 Lymphocytes # (Manual) 0.4 K/mm3 (1.2-5.4) L 01/06/22 04:16 Abs React Lymphs (Man) 0.0 K/mm3 01/06/22 04:16 Monocytes # (Manual) 0.1 K/mm3 (0.0-0.8) 01/06/22 04:16 Eosinophils # (Manual) 0.0 K/mm3 (0.0-0.4) 01/06/22 04:16 Basophils # (Manual) 0.0 K/mm3 (0.0-0.1) 01/06/22 04:16 Metamyelocytes # 0.0 K/mm3 01/06/22 04:16 Myelocytes # 0.0 K/mm3 01/06/22 04:16 Promyelocytes # 0.0 K/mm3 01/06/22 04:16 Blast Cells # 0.0 K/mm3 01/06/22 04:16 WBC Morphology Not Reportable 01/06/22 04:16 Hypersegmented Neuts Not Reportable 01/06/22 04:16 Hyposegmented Neuts Not Reportable 01/06/22 04:16 Hypogranular Neuts Not Reportable 01/06/22 04:16 Smudge Cells Not Reportable 01/06/22 04:16 Toxic Granulation Not Reportable 01/06/22 04:16 Toxic Vacuolation Not Reportable 01/06/22 04:16 Dohle Bodies Not Reportable 01/06/22 04:16 Pelger-Huet Anomaly Not Reportable 01/06/22 04:16 Marina Rods Not Reportable 01/06/22 04:16 Platelet Estimate Consistent w auto 01/06/22 04:16 Clumped Platelets Not Reportable 01/06/22 04:16 Plt Clumps, EDTA Not Reportable 01/06/22 04:16 Large Platelets Not Reportable 01/06/22 04:16 Giant Platelets Not Reportable 01/06/22 04:16 Platelet Satelliting Not Reportable 01/06/22 04:16 Plt Morphology Comment Not Reportable 01/06/22 04:16 RBC Morphology Not Reportable 01/06/22 04:16 Dimorphic RBCs Not Reportable 01/06/22 04:16 Polychromasia Few 01/06/22 04:16 Hypochromasia 1+ 01/06/22 04:16 Poikilocytosis Not Reportable 01/06/22 04:16 Anisocytosis 1+ 01/06/22 04:16 Microcytosis Not Reportable 01/06/22 04:16 Macrocytosis Not Reportable 01/06/22 04:16 Spherocytes Not Reportable 01/06/22 04:16 Pappenheimer Bodies Not Reportable 01/06/22 04:16 Sickle Cells Not Reportable 01/06/22 04:16 Target Cells Not Reportable 01/06/22 04:16 Tear Drop Cells Not Reportable 01/06/22 04:16 Ovalocytes Not Reportable 01/06/22 04:16 Helmet Cells Not Reportable 01/06/22 04:16 Martin-Stoy Bodies Not Reportable 01/06/22 04:16 [place] Rings Not Reportable 01/06/22 04:16 Flynn Cells Not Reportable 01/06/22 04:16 Bite Cells Not Reportable 01/06/22 04:16 Crenated Cell Not Reportable 01/06/22 04:16 Elliptocytes Not Reportable 01/06/22 04:16 Acanthocytes (Spur) Not Reportable 01/06/22 04:16 Rouleaux Not Reportable 01/06/22 04:16 Hemoglobin C Crystals Not Reportable 01/06/22 04:16 Schistocytes Not Reportable 01/06/22 04:16 Malaria parasites Not Reportable 01/06/22 04:16 Kevin Bodies Not Reportable 01/06/22 04:16 Hem Pathologist Commnt No 01/06/22 04:16 PT 13.1 Sec. (12.2-14.9) 01/05/22 04:57 INR 0.90 (0.87-1.13) 01/05/22 04:57 APTT 24.9 Sec. (24.2-36.6) 01/05/22 04:57 D-Dimer 839.18 ng/mlDDU (0-234) H 01/05/22 14:43 Sodium 141 mmol/L (137-145) 01/06/22 04:16 Potassium 4.1 mmol/L (3.6-5.0) 01/06/22 04:16 Chloride 103.4 mmol/L (98-107) 01/06/22 04:16 Carbon Dioxide 27 mmol/L (22-30) 01/06/22 04:16 Anion Gap 15 mmol/L 01/06/22 04:16 BUN 17 mg/dL (7-17) 01/06/22 04:16 Creatinine 0.5 mg/dL (0.6-1.2) L 01/06/22 04:16 Estimated GFR > 60 ml/min 01/06/22 04:16 BUN/Creatinine Ratio 34 % 01/06/22 04:16 Glucose 170 mg/dL (65-100) H 01/06/22 04:16 POC Glucose 166 mg/dL (70-105) H 01/06/22 06:18 Hemoglobin A1c 5.6 % (4-6) 01/06/22 04:16 Lactic Acid 1.90 mmol/L (0.7-2.0) 01/05/22 04:57 Calcium 9.9 mg/dL (8.4-10.2) 01/06/22 04:16 Total Bilirubin 0.20 mg/dL (0.1-1.2) 01/06/22 04:16 Direct Bilirubin < 0.2 mg/dL (0-0.2) 01/05/22 07:14 Indirect Bilirubin 0.0 mg/dL 01/05/22 07:14 AST 16 units/L (5-40) 01/06/22 04:16 ALT 17 units/L (7-56) 01/06/22 04:16 Alkaline Phosphatase 67 units/L (35-129) 01/06/22 04:16 Total Creatine Kinase 43 units/L (30-135) 01/06/22 04:16 CK-MB (CK-2) 1.1 ng/mL (0.0-4.0) 01/06/22 04:16 CK-MB (CK-2) Rel Index 2.5 (0-4) 01/06/22 04:16 Troponin T 0.070 ng/mL (0.00-0.029) H 01/06/22 04:16 NT-Pro-B Natriuret Pep 211.1 pg/mL (0-900) 01/05/22 04:57 Total Protein 7.6 g/dL (6.3-8.2) 01/06/22 04:16 Albumin 4.0 g/dL (3.9-5) 01/06/22 04:16 Albumin/Globulin Ratio 1.1 % 01/06/22 04:16 Triglycerides 132 mg/dL (2-149) 01/05/22 04:57 Cholesterol 113 mg/dL (50-199) 01/05/22 04:57 LDL Cholesterol Direct 54 mg/dL (50-130) 01/05/22 04:57 HDL Cholesterol 36 mg/dL (40-59) L 01/05/22 04:57 Cholesterol/HDL Ratio 3.13 % 01/05/22 04:57 Urine Color Yellow (Yellow) 01/05/22 13:18 Urine Turbidity Hazy (Clear) 01/05/22 13:18 Urine pH 8.0 (5.0-7.0) H 01/05/22 13:18 Ur Specific T[place] 1.011 (1.003-1.030) 01/05/22 13:18 Urine Protein <15 mg/dl mg/dL (Negative) 01/05/22 13:18 Urine Glucose (UA) Neg mg/dL (Negative) 01/05/22 13:18 Urine Ketones Neg mg/dL (Negative) 01/05/22 13:18 Urine Blood Neg (Negative) 01/05/22 13:18 Urine Nitrite Neg (Negative) 01/05/22 13:18 Urine Bilirubin Neg (Negative) 01/05/22 13:18 Urine Urobilinogen < 2.0 mg/dL (<2.0) 01/05/22 13:18 Ur Leukocyte Esterase Neg (Negative) 01/05/22 13:18 Urine WBC (Auto) < 1.0 /HPF (0.0-6.0) 01/05/22 13:18 Urine RBC (Auto) < 1.0 /HPF (0.0-6.0) 01/05/22 13:18 Microbiology: Microbiology 01/05/22 04:57 Peripheral/Venous Blood Culture - Preliminary NO GROWTH AFTER 24 HOURS 01/05/22 04:51 Peripheral/Venous Blood Culture - Preliminary NO GROWTH AFTER 24 HOURS Rosales/IV: Voiding Method External Female Catheter Active Medications - Current Medications Current Medications: Generic Name Dose Route Start Last Admin Trade Name Freq PRN Reason Stop Dose Admin Acetaminophen 650 mg 01/05/22 20:17 Acetaminophen 325 Mg Tab PO Q4H PRN Pain MILD(1-3)/Fever >100.5/FERRARI Albuterol/Ipratropium 1 ampul 01/06/22 08:00 01/06/22 08:49 Ipratropium/Albuterol Sulfate 3 Ml Ampul.Neb IH 1 ampul QIDRT CONNIE Administration Allopurinol 300 mg 01/05/22 20:00 01/06/22 00:21 Allopurinol 300 Mg Tab PO 300 mg QDAY CONNIE Administration Amlodipine Besylate 10 mg 01/05/22 20:00 01/05/22 23:55 Amlodipine 10 Mg Tab PO 10 mg DAILY CONNIE Administration Aspirin 81 mg 01/05/22 20:00 01/05/22 23:39 Aspirin Ec 81 Mg Tab PO 81 mg DAILY CONNIE Administration Atorvastatin Calcium 10 mg 01/05/22 22:00 01/05/22 23:50 Atorvastatin 10 Mg Tab PO 10 mg QHS CONNIE Administration Dexamethasone 8 mg 01/05/22 21:00 01/05/22 23:39 Dexamethasone 4 Mg/Ml Vial IV 8 mg Q24HR CONNIE Administration Docusate Sodium 100 mg 01/05/22 22:00 01/05/22 23:39 Docusate Sodium 100 Mg/10 Ml Oral Liqd FEEDTUBE 100 mg BID CONNIE Administration Ferrous Sulfate 325 mg 01/05/22 20:00 01/05/22 23:40 Ferrous Sulfate 325 Mg Tab PO 325 mg DAILY CONNIE Administration Heparin Sodium (Porcine) 5,000 unit 01/05/22 22:00 01/05/22 23:39 Heparin 5,000 Unit/1 Ml Vial SUB-Q 5,000 unit Q12HR CONNIE Administration Hydralazine HCl 10 mg 01/06/22 00:06 01/06/22 00:55 Hydralazine 20 Mg/1 Ml Inj IV 10 mg Q4H PRN Administration sbp greater than 160 Sodium Chloride 1,000 mls @ 75 mls/hr 01/05/22 20:30 01/05/22 23:38 Nacl 0.9% 1000 Ml IV 01/06/22 15:00 75 mls/hr DIRECT CONNIE Administration Ceftriaxone Sodium 2 gm in 100 mls @ 200 mls/hr 01/05/22 22:00 01/05/22 23:38 Rocephin/Ns 2 Gm/100 Ml IV 01/10/22 21:59 200 mls/hr Q24HR CONNIE Administration Protocol Azithromycin 500 mg in 250 mls @ 250 mls/hr 01/06/22 10:00 Zithromax/Ns IV 01/10/22 10:59 Q24HR CONNIE Insulin Glargine 10 units 01/05/22 22:00 01/06/22 00:23 Insulin Glargine 100 Units/Ml SUB-Q 10 units QHS CONNIE Administration Lacosamide 100 mg 01/05/22 22:00 01/05/22 21:41 Lacosamide 100 Mg Tab PO 100 mg Q12HR CONNIE Administration Lansoprazole 30 mg 01/06/22 10:00 Lansoprazole 30 Mg Solutab FEEDTUBE QDAY CONNIE Levetiracetam 1,000 mg 01/05/22 22:00 01/05/22 23:39 Levetiracetam 500 Mg/5 Ml Oral Liqd FEEDTUBE 1,000 mg BID CONNIE Administration Linagliptin 5 mg 01/06/22 08:00 Linagliptin 5 Mg Tab PO QAMDIAB CONNIE Metoclopramide HCl 5 mg 01/06/22 09:00 Metoclopramide 10 Mg/2 Ml Inj IV Q6H PRN Nausea And Vomiting Morphine Sulfate 2 mg 01/05/22 20:21 Morphine 2 Mg/1 Ml Inj IV Q4H PRN Pain, Moderate (4-6) Ondansetron HCl 4 mg 01/05/22 20:17 Ondansetron 4 Mg/2 Ml Inj IV Q8H PRN Nausea And Vomiting Potassium Chloride 20 meq 01/05/22 20:15 01/05/22 23:39 Potassium Chloride 20 Meq Packet FEEDTUBE 20 meq QDAY CONNIE Administration Sodium Chloride 10 ml 01/05/22 22:00 01/05/22 23:50 Sodium Chloride 0.9% 10 Ml Flush Syringe IV 10 ml BID CONNIE Administration Sodium Chloride 10 ml 01/05/22 20:17 Sodium Chloride 0.9% 10 Ml Flush Syringe IV PRN PRN LINE FLUSH
[2022-01-06] MEDS ORDERED: METOCLOPRAMIDE 10 MG/2 ML INJ IV PRN (09:00)
--- NOTE | 2022-01-06 10:17 | Electrocardiograph Report ---
[facility] Test Date: 2022-01-06 Test Time: 06:50:20 Pat Name: DANY LOPEZ Department: Room: A356 1 Gender: F [employer] Buyer: JANICE : 1935 Requested By: YOLANDA RICHARDSON Order Number: [id number] Reading MD: Aniket Hopper Measurements Intervals [place] Rate: 95 P: 23 NV: 155 QRS: 3 QRSD: 73 T: 52 QT: 357 QTc: 450 Interpretive Statements Sinus rhythm nonspecific st-t Compared to ECG 10/25/2021 05:35:17 Supraventricular tachycardia no longer present Electronically Signed On 01-06-2022 10:17:02 EDT by Aniket Hopper
[2022-01-06] MEDS: cefTRIAXone/NS 2 GM/100 ML 2 GM/100 ML BAG IV SCH (10:36)
[2022-01-06] MEDS: AZITHROMYCIN/NS 500 MG/250 ML 500 MG/250 ML BAG IV SCH (10:37)
[2022-01-06] MEDS: SODIUM CHLORIDE 0.9% 1000 ML 1,000 ML IV SCH (10:38)
[2022-01-06] MEDS: dexAMETHasone 4 MG/ML VIAL IV SCH (10:39)
[2022-01-06] MEDS: levETIRAcetam 500 MG/5 ML ORAL LIQD FEEDTUBE SCH ×2 (10:39→21:50)
[2022-01-06] MEDS: DOCUSATE SODIUM 100 MG/10 ML ORAL LIQD FEEDTUBE SCH ×2 (10:39→21:50)
[2022-01-06] MEDS: HEPARIN 5,000 UNIT/1 ML VIAL SUB-Q SCH ×2 (10:40→21:51)
[2022-01-06] MEDS: FERROUS SULFATE 325 MG TAB PO SCH (10:40)
[2022-01-06] MEDS: POTASSIUM CHLORIDE 20 MEQ PACKET FEEDTUBE SCH (10:40)
[2022-01-06] MEDS: LINAGLIPTIN 5 MG TAB PO SCH (10:41)
[2022-01-06] MEDS: ASPIRIN EC 81 MG TAB PO SCH (10:41)
[2022-01-06] MEDS: LACOSAMIDE 100 MG TAB PO SCH ×2 (10:41→21:54)
[2022-01-06] MEDS: LANSOPRAZOLE 30 MG SOLUTAB FEEDTUBE SCH (10:41)
[2022-01-06] MEDS: amLODIPine 10 MG TAB PO SCH (10:41)
[2022-01-06 11:54] LABS: Creatine Kinase MB 1.5 ng/mL (0.0-4.0)
[2022-01-06] MEDS ORDERED: SIMPLE SYRUP 15 ML FEEDTUBE PRN ×4 (12:04→12:21)
[2022-01-06] MEDS ORDERED: SODIUM BICARBONATE 325 MG TAB FEEDTUBE PRN ×2 (12:04→12:21)
[2022-01-06] MEDS ORDERED: LIPASE 10,500/PROTEASE 25,000/AMYLASE 43,750 (UNITS) DR CAP FEEDTUBE PRN ×2 (12:04→12:21)
--- NOTE | 2022-01-06 15:00 | Vascular Lab Report ---
DUPLEX DOPPLER LOWER EXTREMITY VEINS, BILATERAL INDICATION / CLINICAL INFORMATION: Elevated D-dimers, rule out DVT. TECHNIQUE: Duplex doppler imaging was performed through the veins of both lower extremities using nakul ous compression and other maneuvers. COMPARISON: Bilateral lower extremity venous Doppler 04/20/2021. FINDINGS: RIGHT COMMON FEMORAL VEIN: Negative. RIGHT FEMORAL VEIN: Negative. RIGHT POPLITEAL VEIN: Negative. RIGHT CALF VEINS: Negative. LEFT COMMON FEMORAL VEIN: Negative. LEFT FEMORAL VEIN: Negative. LEFT POPLITEAL VEIN: Negative. LEFT CALF VEINS: Negative. ADDITIONAL FINDINGS: None. IMPRESSION: 1. No sonographic evidence for DVT in either lower extremity. Scribed by: Nicole Munguia RDMS, CHAUNCEY, HERNÁN Scribed: 01/06/2022 1:43 PM I have reviewed the images, agree with this report, and edited this report as needed. Signer Name: Saeid Grande MD Signed: 01/06/2022 2:55 PM Workstation Name: [id number]
[2022-01-06] MEDS: IPRATROPIUM/ALBUTEROL SULFATE 3 ML AMPUL.NEB IH SCH ×2 (15:06→21:45)
--- NOTE | 2022-01-06 15:42 | Cat Scan Report ---
CT angio chest INDICATION / CLINICAL INFORMATION: Elevated D-dimers/chest pain/rule out PE. TECHNIQUE: Axial CT images were obtained through the chest after injection of 100 cc of Omnipaque 350 IV contrast. 3 plane MIP and/or 3D reconstructions were produced. All CT scans at this location are performed using CT dose reduction for ALARA by means of automated exposure control. COMPARISON: 01/05/2022. FINDINGS: PULMONARY ARTERIES: Respiratory motion artifact limits evaluation of the segmental and subsegmental b ranches in the lower lungs. There is no central or large segmental pulmonary embolus identified. THORACIC AORTA: Mild atherosclerotic calcification without acute abnormality. HEART: No significant abnormality. CORONARY ARTERY CALCIFICATION: Moderate coronary artery calcifications. LYMPHADENOPATHY: No significant thoracic lymphadenopathy. LUNGS/PLEURA: No acute airspace disease. Extensive bilateral upper and lower lobe parenchymal scarrin g, most pronounced within the posterior lung bases. This is unchanged from CT from yesterday, 2. No pleural effusion or pneumothorax. OTHER FINDINGS: None. UPPER ABDOMEN: No acute findings. SKELETAL SYSTEM: No acute osseous findings. IMPRESSION: 1. No evidence of central or large segmental pulmonary embolus, within the limitations of this study detailed above. 2. Prominent bilateral parenchymal scarring of the lungs, unchanged from 01/05/2022 exam. No acute airs pace disease. Signer Name: Peter Ascencio MD Signed: 01/06/2022 3:37 PM Workstation Name: [id number]
--- NOTE | 2022-01-06 17:42 | Event Note ---
Date: 01/06/22 Shane PCR positive on 01/06/2022 Droplet and contact isolation Oxygen titrate O2 sats to more than 90% Inflammatory markers ID consultation IV dexamethasone for 10 days Remdesivir for 5 days Empiric antibiotics Procalcitonin levels Home O2 evaluation prior to discharge Patient has elevated D-dimers; CTA chest negative for PE Follow lower extremity venous Doppler to rule out DVT Closely monitor the patient and adjust the management as needed Disposition; follow ID evaluation and recommendation Home O2 evaluation prior to discharge
[2022-01-06] MEDS ORDERED: REMDESIVIR 200 MG in SODIUM CHLORIDE 0.9% 250ML 250 ML IV ONE (20:00)
[2022-01-06 20:33] LABS: Alanine Aminotransferase 15 units/L (7-56); Albumin 3.8 g/dL (3.9-5); Blood Urea Nitrogen 17 mg/dL (7-17); Calcium 9.6 mg/dL (8.4-10.2); Hemolysis Index 5
[2022-01-06 20:34] LABS: BUN/Creatinine Ratio 34
[2022-01-06 20:47] LABS: C-Reactive Protein 1.6 mg/dL (0.00-1.30)
[2022-01-06] MEDS: ASCORBIC ACID 500 MG TAB PO SCH (21:50)
[2022-01-06] MEDS: ZINC SULFATE 220 MG CAP PO SCH (21:50)
--- NOTE | 2022-01-07 07:24 | Progress Note ---
Assessment and Plan Assessment and plan: #COVID-19 infection/Pneumonia #Bilateral pneumonia community-acquired #Acute hypoxic respiratory failure -COVID-19 PCR positive -titrate O2 sats to be greater than 90%; currently on 2LNC will wean as tolerated -continue ceftriaxone and azithromycin for now, if procalcitonin low will discontinue -continue dexamethasone x 10 days (day 2 of 10) -continue remedsivir (dose 2 of 5) -continue contact precautions -continue to follow inflammatory markers q48hrs #Dehydration -continue IVFs, likely secondary to above #Elevated troponin/non-ST elevation KS -CKMB wnl -mild troponin elevation, has plateaued -Cardiology consulted, assistance appreciated #Elevated D-dimers Accu-Chek, sliding scale coverage, ADA diet, insulin as needed Check hemoglobin A1c Adjust insulin as necessary #Insulin dependent diabetes mellitus, controlled -HgbA1c 5.6% -patient prescribed lantus 10Uqhs, tradjenta outpatient -continue carbohydrate consistent tube feeds -SSI with accuchecks while inpatient with lantus at home dose #Hyperlipidemia -continue statin #History of seizure disorder -seizure precautions -continue Vimpat and Keppra #History of gout -continue allopurinol for prevention of gout #History of dementia -stable #DVT/GI prophylaxis On anticoagulation and GI prophylaxis #Discharge planning -once clinically stable, patient will be discharged back to [facility] History Interval history: No acute events overnight per nursing. Patient appears to be comfortable. Spontaneously opens and closes her eyes. Hospitalist Physical - Physical exam Narrative exam: GENERAL: Well-developed well-nourished. In no acute distress. HEENT: Normocephalic. Atraumatic. NECK: Supple. CHEST/LUNGS: CTAB on room air HEART/CARDIOVASCULAR: RRR. No murmur, rubs or gallops appreciated. ABDOMEN: +Peg tube. +BS. NT/ND. SKIN: No rashes noted. NEURO: Patient does not follow commands. MUSCULOSKELETAL: No joint effusion EXTREMITIES: No cyanosis, clubbing or edema. PSYCH: Unable to assess. Patient mute and nonverbal at baseline. - Constitutional Vitals: Temp Pulse Resp BP Pulse Ox 98.2 F 94 H 16 108/53 98 01/06/22 20:46 01/07/22 04:17 01/07/22 04:17 01/07/22 04:17 01/07/22 04:17 General appearance: Present: mild distress, well-nourished, other (Noncommunicative) HEART Score - HEART Score Age: > 65 Risk factors: > 3 risk factors or hx of atherosclerotic disease Troponin: Troponin T 0.070 ng/mL (0.00-0.029) H 01/06/22 04:16 Troponin: 1-3x normal limit - Critical Actions Critical Actions: 4-6 pts:12-16.6% risk of adverse cardiac event. Should be admitted Results - Labs CBC & Chem 7: 01/06/22 04:16 01/07/22 06:50 Labs: Laboratory Last Values WBC 10.2 K/mm3 (4.5-11.0) 01/06/22 04:16 RBC 3.92 M/mm3 (3.65-5.03) 01/06/22 04:16 Hgb 10.4 gm/dl (10.1-14.3) 01/06/22 04:16 Hct 32.6 % (30.3-42.9) 01/06/22 04:16 MCV 83 fl (79-97) 01/06/22 04:16 MCH 26 pg (28-32) L 01/06/22 04:16 MCHC 32 % (30-34) 01/06/22 04:16 RDW 21.5 % (13.2-15.2) H 01/06/22 04:16 Plt Count 408 K/mm3 (140-440) 01/06/22 04:16 Lymph % (Auto) 18.5 % (13.4-35.0) 01/05/22 04:57 [place] % (Auto) 5.5 % (0.0-7.3) 01/05/22 04:57 Eos % (Auto) 2.2 % (0.0-4.3) 01/05/22 04:57 Baso % (Auto) 0.4 % (0.0-1.8) 01/05/22 04:57 Lymph # (Auto) 1.7 K/mm3 (1.2-5.4) 01/05/22 04:57 Charlton # (Auto) 0.5 K/mm3 (0.0-0.8) 01/05/22 04:57 Eos # (Auto) 0.2 K/mm3 (0.0-0.4) 01/05/22 04:57 Baso # (Auto) 0.0 K/mm3 (0.0-0.1) 01/05/22 04:57 Add Manual Diff Complete 01/06/22 04:16 Total Counted 100 01/06/22 04:16 Seg Neutrophils % [employer] Manager 01/06/22 04:16 Seg Neuts % (Manual) 95.0 % (40.0-70.0) H 01/06/22 04:16 Band Neutrophils % 0 % 01/06/22 04:16 Lymphocytes % (Manual) 4.0 % (13.4-35.0) L 01/06/22 04:16 Reactive Lymphs % (Man) 0 % 01/06/22 04:16 Monocytes % (Manual) 1.0 % (0.0-7.3) 01/06/22 04:16 Eosinophils % (Manual) 0 % (0.0-4.3) 01/06/22 04:16 Basophils % (Manual) 0 % (0.0-1.8) 01/06/22 04:16 Metamyelocytes % 0 % 01/06/22 04:16 Myelocytes % 0 % 01/06/22 04:16 Promyelocytes % 0 % 01/06/22 04:16 Blast Cells % 0 % 01/06/22 04:16 Nucleated RBC % Not Reportable 01/06/22 04:16 Seg Neutrophils # 6.8 K/mm3 (1.8-7.7) 01/05/22 04:57 Seg Neutrophils # Man 9.7 K/mm3 (1.8-7.7) H 01/06/22 04:16 Band Neutrophils # 0.0 K/mm3 01/06/22 04:16 Lymphocytes # (Manual) 0.4 K/mm3 (1.2-5.4) L 01/06/22 04:16 Abs React Lymphs (Man) 0.0 K/mm3 01/06/22 04:16 Monocytes # (Manual) 0.1 K/mm3 (0.0-0.8) 01/06/22 04:16 Eosinophils # (Manual) 0.0 K/mm3 (0.0-0.4) 01/06/22 04:16 Basophils # (Manual) 0.0 K/mm3 (0.0-0.1) 01/06/22 04:16 Metamyelocytes # 0.0 K/mm3 01/06/22 04:16 Myelocytes # 0.0 K/mm3 01/06/22 04:16 Promyelocytes # 0.0 K/mm3 01/06/22 04:16 Blast Cells # 0.0 K/mm3 01/06/22 04:16 WBC Morphology Not Reportable 01/06/22 04:16 Hypersegmented Neuts Not Reportable 01/06/22 04:16 Hyposegmented Neuts Not Reportable 01/06/22 04:16 Hypogranular Neuts Not Reportable 01/06/22 04:16 Smudge Cells Not Reportable 01/06/22 04:16 Toxic Granulation Not Reportable 01/06/22 04:16 Toxic Vacuolation Not Reportable 01/06/22 04:16 Dohle Bodies Not Reportable 01/06/22 04:16 Pelger-Huet Anomaly Not Reportable 01/06/22 04:16 Marina Rods Not Reportable 01/06/22 04:16 Platelet Estimate Consistent w auto 01/06/22 04:16 Clumped Platelets Not Reportable 01/06/22 04:16 Plt Clumps, EDTA Not Reportable 01/06/22 04:16 Large Platelets Not Reportable 01/06/22 04:16 Giant Platelets Not Reportable 01/06/22 04:16 Platelet Satelliting Not Reportable 01/06/22 04:16 Plt Morphology Comment Not Reportable 01/06/22 04:16 RBC Morphology Not Reportable 01/06/22 04:16 Dimorphic RBCs Not Reportable 01/06/22 04:16 Polychromasia Few 01/06/22 04:16 Hypochromasia 1+ 01/06/22 04:16 Poikilocytosis Not Reportable 01/06/22 04:16 Anisocytosis 1+ 01/06/22 04:16 Microcytosis Not Reportable 01/06/22 04:16 Macrocytosis Not Reportable 01/06/22 04:16 Spherocytes Not Reportable 01/06/22 04:16 Pappenheimer Bodies Not Reportable 01/06/22 04:16 Sickle Cells Not Reportable 01/06/22 04:16 Target Cells Not Reportable 01/06/22 04:16 Tear Drop Cells Not Reportable 01/06/22 04:16 Ovalocytes Not Reportable 01/06/22 04:16 Helmet Cells Not Reportable 01/06/22 04:16 [place] Bodies Not Reportable 01/06/22 04:16 [place] Rings Not Reportable 01/06/22 04:16 [place] Cells Not Reportable 01/06/22 04:16 Bite Cells Not Reportable 01/06/22 04:16 Crenated Cell Not Reportable 01/06/22 04:16 Elliptocytes Not Reportable 01/06/22 04:16 Acanthocytes (Spur) Not Reportable 01/06/22 04:16 Rouleaux Not Reportable 01/06/22 04:16 Hemoglobin C Crystals Not Reportable 01/06/22 04:16 Schistocytes Not Reportable 01/06/22 04:16 Malaria parasites Not Reportable 01/06/22 04:16 Kevin Bodies Not Reportable 01/06/22 04:16 Hem Pathologist Commnt No 01/06/22 04:16 PT 13.1 Sec. (12.2-14.9) 01/05/22 04:57 INR 0.90 (0.87-1.13) 01/05/22 04:57 APTT 24.9 Sec. (24.2-36.6) 01/05/22 04:57 D-Dimer 839.18 ng/mlDDU (0-234) H 01/05/22 14:43 Sodium 139 mmol/L (137-145) 01/06/22 19:42 Potassium 4.0 mmol/L (3.6-5.0) 01/06/22 19:42 Chloride 102.6 mmol/L (98-107) 01/06/22 19:42 Carbon Dioxide 25 mmol/L (22-30) 01/06/22 19:42 Anion Gap 15 mmol/L 01/06/22 19:42 BUN 17 mg/dL (7-17) 01/06/22 19:42 Creatinine 0.5 mg/dL (0.6-1.2) L 01/06/22 19:42 Estimated GFR > 60 ml/min 01/06/22 19:42 BUN/Creatinine Ratio 34 % 01/06/22 19:42 Glucose 134 mg/dL (65-100) H 01/06/22 19:42 POC Glucose 115 mg/dL (70-105) H 01/07/22 05:49 Hemoglobin A1c 5.6 % (4-6) 01/06/22 04:16 Lactic Acid 1.90 mmol/L (0.7-2.0) 01/05/22 04:57 Calcium 9.6 mg/dL (8.4-10.2) 01/06/22 19:42 Ferritin 423.5 ng/mL (10.0-200.0) H 01/06/22 19:42 Total Bilirubin < 0.20 mg/dL (0.1-1.2) 01/06/22 19:42 Direct Bilirubin < 0.2 mg/dL (0-0.2) 01/05/22 07:14 Indirect Bilirubin 0.0 mg/dL 01/05/22 07:14 AST 14 units/L (5-40) 01/06/22 19:42 ALT 15 units/L (7-56) 01/06/22 19:42 Alkaline Phosphatase 61 units/L (35-129) 01/06/22 19:42 Lactate Dehydrogenase 176 units/L (91-180) 01/06/22 19:42 Total Creatine Kinase 44 units/L (30-135) 01/06/22 10:58 CK-MB (CK-2) 1.5 ng/mL (0.0-4.0) 01/06/22 10:58 CK-MB (CK-2) Rel Index 3.4 (0-4) 01/06/22 10:58 Troponin T 0.070 ng/mL (0.00-0.029) H 01/06/22 04:16 C-Reactive Protein 1.60 mg/dL (0.00-1.30) H 01/06/22 19:42 NT-Pro-B Natriuret Pep 211.1 pg/mL (0-900) 01/05/22 04:57 Total Protein 7.2 g/dL (6.3-8.2) 01/06/22 19:42 Albumin 3.8 g/dL (3.9-5) L 01/06/22 19:42 Albumin/Globulin Ratio 1.1 % 01/06/22 19:42 Triglycerides 132 mg/dL (2-149) 01/05/22 04:57 Cholesterol 113 mg/dL (50-199) 01/05/22 04:57 LDL Cholesterol Direct 54 mg/dL (50-130) 01/05/22 04:57 HDL Cholesterol 36 mg/dL (40-59) L 01/05/22 04:57 Cholesterol/HDL Ratio 3.13 % 01/05/22 04:57 Urine Color Yellow (Yellow) 01/05/22 13:18 Urine Turbidity Hazy (Clear) 01/05/22 13:18 Urine pH 8.0 (5.0-7.0) H 01/05/22 13:18 Ur Specific [place] 1.011 (1.003-1.030) 01/05/22 13:18 Urine Protein <15 mg/dl mg/dL (Negative) 01/05/22 13:18 Urine Glucose (UA) Neg mg/dL (Negative) 01/05/22 13:18 Urine Ketones Neg mg/dL (Negative) 01/05/22 13:18 Urine Blood Neg (Negative) 01/05/22 13:18 Urine Nitrite Neg (Negative) 01/05/22 13:18 Urine Bilirubin Neg (Negative) 01/05/22 13:18 Urine Urobilinogen < 2.0 mg/dL (<2.0) 01/05/22 13:18 Ur Leukocyte Esterase Neg (Negative) 01/05/22 13:18 Urine WBC (Auto) < 1.0 /HPF (0.0-6.0) 01/05/22 13:18 Urine RBC (Auto) < 1.0 /HPF (0.0-6.0) 01/05/22 13:18 Coronavirus (PCR) Positive (Negative) A 01/06/22 08:12 Microbiology: Microbiology 01/05/22 04:57 Peripheral/Venous Blood Culture - Preliminary NO GROWTH AFTER 24 HOURS 01/05/22 04:51 Peripheral/Venous Blood Culture - Preliminary NO GROWTH AFTER 24 HOURS Rosales/IV: Voiding Method External Female Catheter Active Medications - Current Medications Current Medications: Generic Name Dose Route Start Last Admin Trade Name Freq PRN Reason Stop Dose Admin Acetaminophen 650 mg 01/05/22 20:17 Acetaminophen 325 Mg Tab PO Q4H PRN Pain MILD(1-3)/Fever >100.5/FERRARI Albuterol/Ipratropium 1 ampul 01/06/22 14:00 01/06/22 21:45 Ipratropium/Albuterol Sulfate 3 Ml Ampul.Neb IH 1 ampul TIDRT CONNIE Administration Allopurinol 300 mg 01/07/22 10:00 Allopurinol 300 Mg Tab FEEDTUBE DAILY CONNIE Amlodipine Besylate 10 mg 01/07/22 10:00 Amlodipine 10 Mg Tab FEEDTUBE DAILY CONNIE Lipase/Protease/Amylase 1 each 01/06/22 12:04 Lipase 10,500/Protease 25,000/Amylase 43,750 (Units) Dr Collier FEEDTUBE PRN PRN For Clogged Feeding Tube Ascorbic Acid 500 mg 01/06/22 22:00 01/06/22 21:50 Ascorbic Acid 500 Mg Tab PO 500 mg BID CONNIE Administration Aspirin 81 mg 01/07/22 10:00 Aspirin 81 Mg Tab Chew FEEDTUBE QDAY CONNIE Atorvastatin Calcium 10 mg 01/06/22 22:00 01/06/22 21:50 Atorvastatin 10 Mg Tab FEEDTUBE 10 mg QHS CONNIE Administration Cholecalciferol 1,000 unit 01/07/22 10:00 Cholecalciferol (Vit D3) 1000 Unit (25 Mcg) Tab PO QDAY CONNIE Dexamethasone 8 mg 01/05/22 21:00 01/06/22 10:39 Dexamethasone 4 Mg/Ml Vial IV 8 mg Q24HR CONNIE Administration Docusate Sodium 100 mg 01/05/22 22:00 01/06/22 21:50 Docusate Sodium 100 Mg/10 Ml Oral Liqd FEEDTUBE 100 mg BID CONNIE Administration Ferrous Sulfate 300 mg 01/07/22 10:00 Ferrous Sulfate 300 Mg (60mg Elemental Iron) / 5 Ml Oral Liqd FEEDTUBE QDAY CONNIE Heparin Sodium (Porcine) 5,000 unit 01/05/22 22:00 01/06/22 21:51 Heparin 5,000 Unit/1 Ml Vial SUB-Q 5,000 unit Q12HR CONNIE Administration Hydralazine HCl 10 mg 01/06/22 00:06 01/06/22 00:55 Hydralazine 20 Mg/1 Ml Inj IV 10 mg Q4H PRN Administration sbp greater than 160 Ceftriaxone Sodium 2 gm in 100 mls @ 200 mls/hr 01/05/22 22:00 01/06/22 10:36 Rocephin/Ns 2 Gm/100 Ml IV 01/10/22 21:59 200 mls/hr Q24HR CONNIE Administration Protocol Azithromycin 500 mg in 250 mls @ 250 mls/hr 01/06/22 10:00 01/06/22 10:37 Zithromax/Ns IV 01/10/22 10:59 250 mls/hr Q24HR CONNIE Administration Remdesivir 100 mg/ Sodium 250 mls @ 500 mls/hr 01/07/22 14:00 Chloride IV 01/10/22 14:29 Q24HR@1400 [facility] Insulin Glargine 10 units 01/05/22 22:00 01/06/22 21:54 Insulin Glargine 100 Units/Ml SUB-Q 10 units QHS CONNIE Administration Lacosamide 100 mg 01/05/22 22:00 01/06/22 21:54 Lacosamide 100 Mg Tab PO 100 mg Q12HR CONNIE Administration Lansoprazole 30 mg 01/06/22 10:00 01/06/22 10:41 Lansoprazole 30 Mg Solutab FEEDTUBE 30 mg QDAY CONNIE Administration Levetiracetam 1,000 mg 01/05/22 22:00 01/06/22 21:50 Levetiracetam 500 Mg/5 Ml Oral Liqd FEEDTUBE 1,000 mg BID CONNIE Administration Linagliptin 5 mg 01/06/22 08:00 01/06/22 10:41 Linagliptin 5 Mg Tab PO 5 mg QAMDIAB CONNIE Administration Metoclopramide HCl 5 mg 01/06/22 09:00 Metoclopramide 10 Mg/2 Ml Inj IV Q6H PRN Nausea And Vomiting Morphine Sulfate 2 mg 01/05/22 20:21 Morphine 2 Mg/1 Ml Inj IV Q4H PRN Pain, Moderate (4-6) Ondansetron HCl 4 mg 01/05/22 20:17 Ondansetron 4 Mg/2 Ml Inj IV Q8H PRN Nausea And Vomiting Potassium Chloride 20 meq 01/05/22 20:15 01/06/22 10:40 Potassium Chloride 20 Meq Packet FEEDTUBE 20 meq QDAY CONNIE Administration Simple Syrup 15 ml 01/06/22 12:04 Simple Syrup 15 Ml FEEDTUBE PRN PRN Hypoglycemia Simple Syrup 30 ml 01/06/22 12:04 Simple Syrup 15 Ml FEEDTUBE PRN PRN Hypoglycemia Sodium Bicarbonate 325 mg 01/06/22 12:04 Sodium Bicarbonate 325 Mg Tab FEEDTUBE PRN PRN For Clogged Feeding Tube Sodium Chloride 10 ml 01/05/22 22:00 01/06/22 21:55 Sodium Chloride 0.9% 10 Ml Flush Syringe IV 10 ml BID CONNIE Administration Sodium Chloride 10 ml 01/05/22 20:17 Sodium Chloride 0.9% 10 Ml Flush Syringe IV PRN PRN LINE FLUSH Sodium Chloride 50 ml 01/07/22 14:00 Sodium Chloride 0.9% 50 Ml Ivpb IV 01/11/22 14:01 Q24HR@1400 CONNIE Zinc Sulfate 220 mg 01/06/22 22:00 01/06/22 21:50 Zinc Sulfate 220 Mg Cap PO 220 mg BID CONNIE Administration Nutrition/Malnutrition Assess - Dietary Evaluation Nutrition/Malnutrition Findings: Nutrition Notes Start: 01/06/22 11:50 Freq: Status: Active Protocol: Document 01/06/22 11:50 CARMEN (Rec: 01/06/22 12:27 CARMEN [id number]) Nutrition Notes Need for Assessment generated from: MD Order Initial or Follow up Assessment Current Diagnosis Diabetes,Hypertension,Stroke, Hyperlipidemia Other Pertinent Diagnosis Bilateral Pneumonia, Dehydration, NSTEMI, Gout, Seizure, Dementia. Current Diet TF-Glucerna 1.2 Sarbjit @ 55 ml/hr (from D 01/06). Labs/Tests 01/06: Crea 0.5, Glu 170, HbA1c 5.6. Pertinent Medications 01/06: Lantus 10U, KCl 20mEq, others nutritionally unremarkable. Height 5 ft 6 in Weight 72.57 kg [place] Body Weight (kg) 59.09 BMI 25.8 Intake Prior to Admission Good Weight change and time frame Pt denies having loss body weight [employer]. Pt's last visit 2 weeks ago: Wt 65 Kg, BMI 23.1; a discrepancy of 7.57 Kg body weight gain reported. Weight Status Appropriate Subjective/Other Information RD consult for write/manage TF . Pt has PEG tube poa, according to Physical Assessment History notes. TF will be prescribed. Pt is on Nasal [place], O2 saturation @ 98%, according to Physical Assessment History notes. Pt is swallow impaired, according to Physical Assessment History notes. Percent of energy/protein needs met: Prescribed TF-Glucerna 1.2 Sarbjit @ 55 ml/hr provides for energy/protein needs (1,595 Kcal/80 g) during LOS, 96% Kcal; 100% AA. Burn Absent Trauma Absent GI Symptoms None Difficulty In Swallowing Food Allergy No Skin Integrity/Comment Assessment WNL. Current % PO Other Minimum of two criteria No #1 Nutrition Diagnosis Inadequate oral intake, Swallowing difficulty Etiology CVA. As Evidenced by Signs and Symptoms Pt has PEG tube poa. Is patient on ventilator? No Is Patient Ambulatory and/or Out of Bed No REE-([facility]-confined to bed) 1438.128 Kcal/Kg value to use for calculation 23 Approximate Energy Requirements Using 1669 kcal/Kg Calculation Used for Recommendations Kcal/kg Additional Notes Protein: 1-1.2 g/Kg ABW; 73-88 g/day. Fluids: 1 ml/Kcal, or as per MD. Nutrition Intervention Nutrition Support: Start TF-Glucerna 1.2 Sarbjit @ 55 ml/hr. Flush: 100 ml water Q 4 hr, or as per MD. Kcal 1,595 Protein (gm) 80 Carbohydrates (gm) 152 Fat (gm) 80 Fluid (mL) 1,070 Fiber (gm) 21 % RDI: 96% Kcal; 100% AA. Goal #1 Provide at least 75% of energy /protein needs through Enteral Feeding during LOS. Goal #2 Maintain body weight within +/ -3% of admission body weight during LOS. Follow-Up By: 01/08/22 Additional Comments Start monitoring TF tolerance and BM.
[2022-01-07 07:35] LABS: Alanine Aminotransferase 16 units/L (7-56); Albumin 3.7 g/dL (3.9-5); Blood Urea Nitrogen 25 mg/dL (7-17); Calcium 9.8 mg/dL (8.4-10.2); Hemolysis Index 9
[2022-01-07 07:46] LABS: BUN/Creatinine Ratio 36
[2022-01-07] MEDS: IPRATROPIUM/ALBUTEROL SULFATE 3 ML AMPUL.NEB IH SCH ×3 (08:03→23:40)
[2022-01-07] MEDS: AZITHROMYCIN/NS 500 MG/250 ML 500 MG/250 ML BAG IV SCH (10:04)
[2022-01-07] MEDS: DOCUSATE SODIUM 100 MG/10 ML ORAL LIQD FEEDTUBE SCH ×2 (10:05→22:51)
[2022-01-07] MEDS: LANSOPRAZOLE 30 MG SOLUTAB FEEDTUBE SCH (10:05)
[2022-01-07] MEDS: cefTRIAXone/NS 2 GM/100 ML 2 GM/100 ML BAG IV SCH (10:05)
[2022-01-07] MEDS: amLODIPine 10 MG TAB FEEDTUBE SCH (10:05)
[2022-01-07] MEDS: allopurinoL 300 MG TAB FEEDTUBE SCH (10:06)
[2022-01-07] MEDS: ZINC SULFATE 220 MG CAP PO SCH ×2 (10:06→22:52)
[2022-01-07] MEDS: LINAGLIPTIN 5 MG TAB PO SCH (10:06)
[2022-01-07] MEDS: POTASSIUM CHLORIDE 20 MEQ PACKET FEEDTUBE SCH (10:06)
[2022-01-07] MEDS: HEPARIN 5,000 UNIT/1 ML VIAL SUB-Q SCH ×2 (10:06→22:52)
[2022-01-07] MEDS: ASCORBIC ACID 500 MG TAB PO SCH ×2 (10:06→22:52)
[2022-01-07] MEDS: CHOLECALCIFEROL (VIT D3) 1000 UNIT (25 mcg) TAB PO SCH (10:06)
[2022-01-07] MEDS: dexAMETHasone 4 MG/ML VIAL IV SCH (10:06)
[2022-01-07] MEDS: ASPIRIN 81 MG TAB CHEW FEEDTUBE SCH (10:06)
[2022-01-07] MEDS: LACOSAMIDE 100 MG TAB PO SCH ×2 (10:09→22:51)
[2022-01-07] MEDS: levETIRAcetam 500 MG/5 ML ORAL LIQD FEEDTUBE SCH ×2 (10:09→22:51)
--- NOTE | 2022-01-07 10:15 | Consultation ---
History of Present Illness Consult date: 01/07/22 Consult reason: elevated troponin History of present illness: Patient is an 86-year-old woman, resident of a long-term, who was admitted with symptoms of congestion, mucus production, oxygen desaturation. She has been reported to have been diagnosed with a pneumonia 2 weeks earlier. On presentation, her COVID test was positive. Chest x-ray showed right lower lobe streaking suggestive of a pneumonia. A CT angiogram of the chest was negative. Cardiology consultation was requested for the finding of a borderline elevation of the troponin levels of 0.05-0.07, flat over 3 serial measurements. On my review of the ECGs done in the emergency room 24 hours ago, on 01/06/2022 at 06:52, there is a sinus rhythm, with diffuse J-point elevation involving predominantly the inferolateral leads. Differential diagnosis include early repolarization versus pericarditis, but an acute injury cannot be excluded. The patient is frail, chronically ill-appearing, noncommunicative with advanced dementia. She is not a candidate for aggressive and invasive cardiac evaluation and therapies. A recent echocardiogram done 2 months ago in this hospital showed normal left ventricular systolic function with ejection fraction 55 to 60%. Medications and Allergies Allergies Allergy/AdvReac Type Severity Reaction Status Date / Time No Known Allergies Allergy Verified 03/15/21 10:30 Home Medications Medication Instructions Recorded Confirmed Last Taken Type Ferrous Sulfate [Iron 325 MG] 325 mg PO DAILY 03/17/21 01/06/22 Unknown History Lovastatin [Altoprev] 40 mg PO DAILY 03/17/21 01/06/22 Unknown History Sennosides [Senna] 40 mg PO DAILY 03/17/21 01/06/22 Unknown History allopurinoL [Zyloprim] 300 mg PO QDAY 03/17/21 01/06/22 Unknown History amLODIPine 10 mg PO DAILY 03/17/21 01/06/22 Unknown History Aspirin [Adult Aspirin] 81 mg PO DAILY #30 tablet. 03/22/21 01/06/22 Unknown Rx Linagliptin [Tradjenta] 5 mg PO QAMDIAB #30 tablet 03/22/21 01/06/22 Unknown Rx Docusate Sodium [Colace ORAL LIQ] 100 mg FEEDTUBE BID #100 ml 11/04/21 01/06/22 Unknown Rx Insulin Glargine [Lantus VIAL] 10 units SUB-Q QHS #30 ml 11/04/21 01/06/22 Unknown Rx Lacosamide [Vimpat] 100 mg PO Q12HR #60 tablet 11/04/21 01/06/22 Unknown Rx Lansoprazole Solutab [Prevacid 30 mg FEEDTUBE QDAY #30 tab.rapdis 11/04/21 01/06/22 Unknown Rx Solutab] Sennosides/Docusate [Senokot S] 2 tab FEEDTUBE BID #30 tablet 11/04/21 01/06/22 Unknown Rx levETIRAcetam [Keppra] 1,000 mg FEEDTUBE BID #600 ml 11/04/21 01/06/22 Unknown Rx traMADoL [Ultram 50 MG tab] 225 mg PO Q6HR #20 tab 11/04/21 01/06/22 Unknown Rx Azithromycin Oral Liqd [Zithromax 250 mg FEEDTUBE QDAY 3 Days #1 12/25/21 01/06/22 Unknown Rx 200 MG/5 ML ORAL LIQ] bottle Potassium Chloride [KCl 20 meq 20 meq FEEDTUBE QDAY 5 Days #1 12/25/21 01/06/22 Unknown Rx ORAL LIQ] bottle Active Meds: Active Medications Acetaminophen (Acetaminophen 325 Mg Tab) 650 mg PO Q4H PRN PRN Reason: Pain MILD(1-3)/Fever >100.5/FERRARI Albuterol/Ipratropium (Ipratropium/Albuterol Sulfate 3 Ml Ampul.Neb) 1 ampul IH TIDRT [facility] Last Admin: 01/07/22 08:03 Dose: 1 ampul Allopurinol (Allopurinol 300 Mg Tab) 300 mg FEEDTUBE DAILY [facility] Last Admin: 01/07/22 10:06 Dose: 300 mg Amlodipine Besylate (Amlodipine 10 Mg Tab) 10 mg FEEDTUBE DAILY [facility] Last Admin: 01/07/22 10:05 Dose: 10 mg Lipase/Protease/Amylase (Lipase 10,500/Protease 25,000/Amylase 43,750 (Units) Dr Collier) 1 each FEEDTUBE PRN PRN PRN Reason: For Clogged Feeding Tube Ascorbic Acid (Ascorbic Acid 500 Mg Tab) 500 mg PO BID [facility] Last Admin: 01/07/22 10:06 Dose: 500 mg Aspirin (Aspirin 81 Mg Tab Chew) 81 mg FEEDTUBE QDAY [facility] Last Admin: 01/07/22 10:06 Dose: 81 mg Atorvastatin Calcium (Atorvastatin 10 Mg Tab) 10 mg FEEDTUBE QHS [facility] Last Admin: 01/06/22 21:50 Dose: 10 mg Cholecalciferol (Cholecalciferol (Vit D3) 1000 Unit (25 Mcg) Tab) 1,000 unit PO QDAY [facility] Last Admin: 01/07/22 10:06 Dose: 1,000 unit Dexamethasone (Dexamethasone 4 Mg/Ml Vial) 8 mg IV Q24HR [facility] Last Admin: 01/07/22 10:06 Dose: 8 mg Docusate Sodium (Docusate Sodium 100 Mg/10 Ml Oral Liqd) 100 mg FEEDTUBE BID [facility] Last Admin: 01/07/22 10:05 Dose: 100 mg Ferrous Sulfate (Ferrous Sulfate 300 Mg (60mg Elemental Iron) / 5 Ml Oral Liqd) 300 mg FEEDTUBE QDAY [facility] Heparin Sodium (Porcine) (Heparin 5,000 Unit/1 Ml Vial) 5,000 unit SUB-Q Q12HR [facility] Last Admin: 01/07/22 10:06 Dose: 5,000 unit Hydralazine HCl (Hydralazine 20 Mg/1 Ml Inj) 10 mg IV Q4H PRN PRN Reason: sbp greater than 160 Last Admin: 01/06/22 00:55 Dose: 10 mg Ceftriaxone Sodium (Rocephin/Ns 2 Gm/100 Ml) 2 gm in 100 mls @ 200 mls/hr IV Q24HR [facility]; Protocol Stop: 01/10/22 21:59 Last Admin: 01/07/22 10:05 Dose: 200 mls/hr Azithromycin (Zithromax/Ns) 500 mg in 250 mls @ 250 mls/hr IV Q24HR [facility] Stop: 01/10/22 10:59 Last Admin: 01/07/22 10:04 Dose: 250 mls/hr Remdesivir 100 mg/ Sodium (Chloride) 250 mls @ 500 mls/hr IV Q24HR@1400 [facility] Stop: 01/10/22 14:29 Insulin Glargine (Insulin Glargine 100 Units/Ml) 10 units SUB-Q QHS [facility] Last Admin: 01/06/22 21:54 Dose: 10 units Lacosamide (Lacosamide 100 Mg Tab) 100 mg PO Q12HR [facility] Last Admin: 01/07/22 10:09 Dose: 100 mg Lansoprazole (Lansoprazole 30 Mg Solutab) 30 mg FEEDTUBE QDAY [facility] Last Admin: 01/07/22 10:05 Dose: 30 mg Levetiracetam (Levetiracetam 500 Mg/5 Ml Oral Liqd) 1,000 mg FEEDTUBE BID [facility] Last Admin: 01/07/22 10:09 Dose: 1,000 mg Linagliptin (Linagliptin 5 Mg Tab) 5 mg PO QAMDIAB [facility] Last Admin: 01/07/22 10:06 Dose: 5 mg Metoclopramide HCl (Metoclopramide 10 Mg/2 Ml Inj) 5 mg IV Q6H PRN PRN Reason: Nausea And Vomiting Morphine Sulfate (Morphine 2 Mg/1 Ml Inj) 2 mg IV Q4H PRN PRN Reason: Pain, Moderate (4-6) Ondansetron HCl (Ondansetron 4 Mg/2 Ml Inj) 4 mg IV Q8H PRN PRN Reason: Nausea And Vomiting Potassium Chloride (Potassium Chloride 20 Meq Packet) 20 meq FEEDTUBE QDAY [facility] Last Admin: 01/07/22 10:06 Dose: 20 meq Simple Syrup (Simple Syrup 15 Ml) 15 ml FEEDTUBE PRN PRN PRN Reason: Hypoglycemia Simple Syrup (Simple Syrup 15 Ml) 30 ml FEEDTUBE PRN PRN PRN Reason: Hypoglycemia Sodium Bicarbonate (Sodium Bicarbonate 325 Mg Tab) 325 mg FEEDTUBE PRN PRN PRN Reason: For Clogged Feeding Tube Sodium Chloride (Sodium Chloride 0.9% 10 Ml Flush Syringe) 10 ml IV BID [facility] Last Admin: 01/07/22 10:07 Dose: 10 ml Sodium Chloride (Sodium Chloride 0.9% 10 Ml Flush Syringe) 10 ml IV PRN PRN PRN Reason: LINE FLUSH Sodium Chloride (Sodium Chloride 0.9% 50 Ml Ivpb) 50 ml IV Q24HR@1400 [facility] Stop: 01/11/22 14:01 Zinc Sulfate (Zinc Sulfate 220 Mg Cap) 220 mg PO BID [facility] Last Admin: 01/07/22 10:06 Dose: 220 mg Review of Systems ROS unobtainable: due to mental status Physical Examination Vital Signs Temp Pulse Resp BP Pulse Ox 97.7 F 103 H 18 174/94 100 01/05/22 04:37 01/05/22 04:37 01/05/22 04:37 01/05/22 04:37 01/05/22 04:37 General appearance: cachectic, other (Frail elderly, chronically ill-appearing) HEENT: Positive: PERRL Neck: Positive: neck supple Cardiac: Positive: Reg Rate and Rhythm Lungs: Positive: Decreased Breath Sounds Neuro: Positive: Grossly Intact, Weakness (Generalized lethargy) Abdomen: Positive: Soft Female genitourinary: deferred Skin: Positive: Clear Extremities: Absent: edema Results 01/06/22 04:16 01/07/22 06:50 Cardiac Enzymes 01/06/22 01/06/22 01/06/22 Range/Units 10:58 19:42 19:42 AST 14 (5-40) units/L Lactate Dehydrogenase 176 (91-180) units/L CK-MB (CK-2) 1.5 (0.0-4.0) ng/mL 01/07/22 Range/Units 06:50 AST 16 (5-40) units/L Lactate Dehydrogenase (91-180) units/L CK-MB (CK-2) (0.0-4.0) ng/mL Comprehensive Metabolic Panel 01/06/22 01/07/22 Range/Units 19:42 06:50 Sodium 139 141 (137-145) mmol/L Potassium 4.0 3.6 (3.6-5.0) mmol/L Chloride 102.6 104.1 (98-107) mmol/L Carbon Dioxide 25 25 (22-30) mmol/L BUN 17 25 H (7-17) mg/dL Creatinine 0.5 L 0.7 (0.6-1.2) mg/dL Glucose 134 H 89 (65-100) mg/dL Calcium 9.6 9.8 (8.4-10.2) mg/dL AST 14 16 (5-40) units/L ALT 15 16 (7-56) units/L Alkaline Phosphatase 61 69 (35-129) units/L Total Protein 7.2 7.5 (6.3-8.2) g/dL Albumin 3.8 L 3.7 L (3.9-5) g/dL EKG interpretations - Telemetry EKG Rhythm: Sinus Rhythm (With diffuse inferolateral J-point elevation) Assessment and Plan - Patient Problems (1) Respiratory insufficiency Current Visit: Yes Status: Acute Plan to address problem: 86-year-old long-term patient, who is frail, cachectic, chronically ill- appearing and noncommunicative with as advanced dementia. Admitted with cough, congestion, oxygen desaturation, abnormal chest x-ray and COVID-positive pneumonia. EKG done 24 hours ago, on her ER presentation shows abnormal changes of diffuse J-point elevation, of uncertain significance. Patient is not a candidate for aggressive and invasive cardiac evaluation and t herapies. We will treat with empiric nitrates, beta-blockers and follow-up serial EKGs.
--- NOTE | 2022-01-07 10:22 | Consultation ---
History of Present Illness - Reason for Consult Consult date: 01/07/22 - History of Present Illness 86-year-old female past medical history dementia, seizures, GERD [facility] due to shortness of breath. Began on the morning of admission and was present with a cough. History is obtained from the chart due to her dementia and COVID-19. Afebrile since admission with a white count 10.2. COVID-positive. Normal renal function. Blood cultures no growth so far. Currently on ceftriaxone, azithromycin, dexamethasone, Remdesivir. On 2 L nasal cannula. Imaging personally reviewed: Chest CTA: Prominent bilateral parenchymal scarring, unchanged. No obvious pneumonia. Review of systems: Deferred to reduce to the risk of transmission of COVID-19 Past History Past Medical History: other (See HPI) Past Surgical History: No surgical history Social history: smoking Family history: hypertension Medications and Allergies Allergies Allergy/AdvReac Type Severity Reaction Status Date / Time No Known Allergies Allergy Verified 03/15/21 10:30 Home Medications Medication Instructions Recorded Confirmed Last Taken Type Ferrous Sulfate [Iron 325 MG] 325 mg PO DAILY 03/17/21 01/06/22 Unknown History Lovastatin [Altoprev] 40 mg PO DAILY 03/17/21 01/06/22 Unknown History Sennosides [Senna] 40 mg PO DAILY 03/17/21 01/06/22 Unknown History allopurinoL [Zyloprim] 300 mg PO QDAY 03/17/21 01/06/22 Unknown History amLODIPine 10 mg PO DAILY 03/17/21 01/06/22 Unknown History Aspirin [Adult Aspirin] 81 mg PO DAILY #30 tablet. 03/22/21 01/06/22 Unknown Rx Linagliptin [Tradjenta] 5 mg PO QAMDIAB #30 tablet 03/22/21 01/06/22 Unknown Rx Docusate Sodium [Colace ORAL LIQ] 100 mg FEEDTUBE BID #100 ml 11/04/21 01/06/22 Unknown Rx Insulin Glargine [Lantus VIAL] 10 units SUB-Q QHS #30 ml 11/04/21 01/06/22 Unknown Rx Lacosamide [Vimpat] 100 mg PO Q12HR #60 tablet 11/04/21 01/06/22 Unknown Rx Lansoprazole Solutab [Prevacid 30 mg FEEDTUBE QDAY #30 tab.rapdis 11/04/21 01/06/22 Unknown Rx Solutab] Sennosides/Docusate [Senokot S] 2 tab FEEDTUBE BID #30 tablet 11/04/21 01/06/22 Unknown Rx levETIRAcetam [Keppra] 1,000 mg FEEDTUBE BID #600 ml 11/04/21 01/06/22 Unknown Rx traMADoL [Ultram 50 MG tab] 225 mg PO Q6HR #20 tab 11/04/21 01/06/22 Unknown Rx Azithromycin Oral Liqd [Zithromax 250 mg FEEDTUBE QDAY 3 Days #1 12/25/2109/28 Unknown Rx 200 MG/5 ML ORAL LIQ] bottle Potassium Chloride [KCl 20 meq 20 meq FEEDTUBE QDAY 5 Days #1 12/25/21 01/06/22 Unknown Rx ORAL LIQ] bottle Active Meds: Active Medications Acetaminophen (Acetaminophen 325 Mg Tab) 650 mg PO Q4H PRN PRN Reason: Pain MILD(1-3)/Fever >100.5/FERRARI Albuterol/Ipratropium (Ipratropium/Albuterol Sulfate 3 Ml Ampul.Neb) 1 ampul IH TIDRT [facility] Last Admin: 01/07/22 08:03 Dose: 1 ampul Allopurinol (Allopurinol 300 Mg Tab) 300 mg FEEDTUBE DAILY [facility] Last Admin: 01/07/22 10:06 Dose: 300 mg Amlodipine Besylate (Amlodipine 10 Mg Tab) 10 mg FEEDTUBE DAILY [facility] Last Admin: 01/07/22 10:05 Dose: 10 mg Lipase/Protease/Amylase (Lipase 10,500/Protease 25,000/Amylase 43,750 (Units) Dr Collier) 1 each FEEDTUBE PRN PRN PRN Reason: For Clogged Feeding Tube Ascorbic Acid (Ascorbic Acid 500 Mg Tab) 500 mg PO BID [facility] Last Admin: 01/07/22 10:06 Dose: 500 mg Aspirin (Aspirin 81 Mg Tab Chew) 81 mg FEEDTUBE QDAY [facility] Last Admin: 01/07/22 10:06 Dose: 81 mg Atorvastatin Calcium (Atorvastatin 10 Mg Tab) 10 mg FEEDTUBE QHS [facility] Last Admin: 01/06/22 21:50 Dose: 10 mg Cholecalciferol (Cholecalciferol (Vit D3) 1000 Unit (25 Mcg) Tab) 1,000 unit PO QDAY [facility] Last Admin: 01/07/22 10:06 Dose: 1,000 unit Dexamethasone (Dexamethasone 4 Mg/Ml Vial) 8 mg IV Q24HR [facility] Last Admin: 01/07/22 10:06 Dose: 8 mg Docusate Sodium (Docusate Sodium 100 Mg/10 Ml Oral Liqd) 100 mg FEEDTUBE BID [facility] Last Admin: 01/07/22 10:05 Dose: 100 mg Ferrous Sulfate (Ferrous Sulfate 300 Mg (60mg Elemental Iron) / 5 Ml Oral Liqd) 300 mg FEEDTUBE QDAY [facility] Heparin Sodium (Porcine) (Heparin 5,000 Unit/1 Ml Vial) 5,000 unit SUB-Q Q12HR [facility] Last Admin: 01/07/22 10:06 Dose: 5,000 unit Hydralazine HCl (Hydralazine 20 Mg/1 Ml Inj) 10 mg IV Q4H PRN PRN Reason: sbp greater than 160 Last Admin: 01/06/22 00:55 Dose: 10 mg Ceftriaxone Sodium (Rocephin/Ns 2 Gm/100 Ml) 2 gm in 100 mls @ 200 mls/hr IV Q24HR [facility]; Protocol Stop: 01/10/22 21:59 Last Admin: 01/07/22 10:05 Dose: 200 mls/hr Azithromycin (Zithromax/Ns) 500 mg in 250 mls @ 250 mls/hr IV Q24HR [facility] Stop: 01/10/22 10:59 Last Admin: 01/07/22 10:04 Dose: 250 mls/hr Remdesivir 100 mg/ Sodium (Chloride) 250 mls @ 500 mls/hr IV Q24HR@1400 [facility] Stop: 01/10/22 14:29 Insulin Glargine (Insulin Glargine 100 Units/Ml) 10 units SUB-Q QHS [facility] Last Admin: 01/06/22 21:54 Dose: 10 units Lacosamide (Lacosamide 100 Mg Tab) 100 mg PO Q12HR [facility] Last Admin: 01/07/22 10:09 Dose: 100 mg Lansoprazole (Lansoprazole 30 Mg Solutab) 30 mg FEEDTUBE QDAY [facility] Last Admin: 01/07/22 10:05 Dose: 30 mg Levetiracetam (Levetiracetam 500 Mg/5 Ml Oral Liqd) 1,000 mg FEEDTUBE BID [facility] Last Admin: 01/07/22 10:09 Dose: 1,000 mg Linagliptin (Linagliptin 5 Mg Tab) 5 mg PO QAMDIAB [facility] Last Admin: 01/07/22 10:06 Dose: 5 mg Metoclopramide HCl (Metoclopramide 10 Mg/2 Ml Inj) 5 mg IV Q6H PRN PRN Reason: Nausea And Vomiting Morphine Sulfate (Morphine 2 Mg/1 Ml Inj) 2 mg IV Q4H PRN PRN Reason: Pain, Moderate (4-6) Ondansetron HCl (Ondansetron 4 Mg/2 Ml Inj) 4 mg IV Q8H PRN PRN Reason: Nausea And Vomiting Potassium Chloride (Potassium Chloride 20 Meq Packet) 20 meq FEEDTUBE QDAY [facility] Last Admin: 01/07/22 10:06 Dose: 20 meq Simple Syrup (Simple Syrup 15 Ml) 15 ml FEEDTUBE PRN PRN PRN Reason: Hypoglycemia Simple Syrup (Simple Syrup 15 Ml) 30 ml FEEDTUBE PRN PRN PRN Reason: Hypoglycemia Sodium Bicarbonate (Sodium Bicarbonate 325 Mg Tab) 325 mg FEEDTUBE PRN PRN PRN Reason: For Clogged Feeding Tube Sodium Chloride (Sodium Chloride 0.9% 10 Ml Flush Syringe) 10 ml IV BID [facility] Last Admin: 01/07/22 10:07 Dose: 10 ml Sodium Chloride (Sodium Chloride 0.9% 10 Ml Flush Syringe) 10 ml IV PRN PRN PRN Reason: LINE FLUSH Sodium Chloride (Sodium Chloride 0.9% 50 Ml Ivpb) 50 ml IV Q24HR@1400 [facility] Stop: 01/11/22 14:01 Zinc Sulfate (Zinc Sulfate 220 Mg Cap) 220 mg PO BID [facility] Last Admin: 01/07/22 10:06 Dose: 220 mg Physical Examination - Physical Exam Narrative exam: Physical exam deferred to reduce risk of transmission of COVID-19. Please refer to primary team's note. - Constitutional Vitals: Vital Signs Temp Pulse Resp BP Pulse Ox 98.2 F 89 18 136/55 96 01/06/22 20:46 01/07/22 08:09 01/07/22 08:09 01/07/22 10:05 01/07/22 08:14 Temperature -Last 24 Hours Temperature 98.2 F Temperature 97.9 F Temperature 98.4 F Results - Labs CBC & Chem 7: 01/06/22 04:16 01/07/22 06:50 Labs: Abnormal lab results 01/06/22 01/06/22 01/06/22 Range/Units 08:12 11:49 17:10 BUN (7-17) mg/dL Creatinine (0.6-1.2) mg/dL Glucose (65-100) mg/dL POC Glucose 163 H 155 H (70-105) mg/dL Ferritin (10.0-200.0) ng/mL C-Reactive Protein (0.00-1.30) mg/dL Albumin (3.9-5) g/dL Coronavirus (PCR) Positive A (Negative) 01/06/22 01/06/22 01/06/22 Range/Units 19:42 19:42 19:42 BUN (7-17) mg/dL Creatinine 0.5 L (0.6-1.2) mg/dL Glucose 134 H (65-100) mg/dL POC Glucose (70-105) mg/dL Ferritin 423.5 H (10.0-200.0) ng/mL C-Reactive Protein 1.60 H (0.00-1.30) mg/dL Albumin 3.8 L (3.9-5) g/dL Coronavirus (PCR) (Negative) 01/07/22 01/07/22 01/07/22 Range/Units 00:07 05:49 06:50 BUN 25 H (7-17) mg/dL Creatinine (0.6-1.2) mg/dL Glucose (65-100) mg/dL POC Glucose 132 H 115 H (70-105) mg/dL Ferritin (10.0-200.0) ng/mL C-Reactive Protein (0.00-1.30) mg/dL Albumin 3.7 L (3.9-5) g/dL Coronavirus (PCR) (Negative) Assessment and Plan Cultures: Blood culture no growth so far A/P: 86-year-old female past medical history dementia, seizures, GERD #Severe COVID-19 pneumonia: Patient presented with a week of symptoms, chest x- ray with diffuse bilateral infiltrates, admission O2 sats on room air. Inf lammatory markers elevated #Acute hypoxemic respiratory failure: Likely secondary to COVID-19 infection. Currently on 2L DC Recommendations: -Dexamethasone 6 mg IV/PO daily for 10 days -Remdesivir 200 mg IV q day x 1 followed by 100 mg IV q day x 4 days -Obtain q48-72h inflammatory markers - ferritin, Ddimer, CRP, LDH -Continue ceftriaxone 2 gm IV qday and azithromycin 500 mg PO qday, if procal citonin <0.25 ng/mL stop antibiotics -Anticoagulation per hospital protocol -Proning as able Thank you for the consult, we will continue to follow. MD [facility] ([facility] O: [phone] F: [phone]
[2022-01-07] MEDS: FERROUS SULFATE 300 MG (60MG Elemental Iron) / 5 mL ORAL LIQD FEEDTUBE SCH (13:37)
[2022-01-07] MEDS: METOPROLOL TARTRATE 25 MG TAB PO SCH ×2 (13:39→22:52)
[2022-01-07] MEDS ORDERED: guaiFENesin DM 200/20 MG ORAL LIQD 10 ML PO PRN (14:23)
[2022-01-07] MEDS: SODIUM CHLORIDE 0.9% 50 ML IVPB IV SCH (15:11)
[2022-01-07] MEDS: REMDESIVIR 100 MG in SODIUM CHLORIDE 0.9% 250ML 250 ML IV SCH (15:11)
--- NOTE | 2022-01-07 22:02 | Consultation ---
DATE OF CONSULTATION: 01/06/2022 HISTORY OF PRESENT ILLNESS: The patient is an 86-year-old female who has dementia and is unable to give any history. She is a assisted patient, and she has multiple medical problems that include diabetes, hypertension, GERD, seizure disorder, hypertension and stroke. She was brought in with shortness of breath. She appears comfortable now and is confused, but does not describe any complaints. PAST MEDICAL HISTORY: See the nurse's list. MEDICINES: See the nurse's list. ALLERGIES: None. SOCIAL HISTORY: Smoking, none. Alcohol, no heavy use. PAST SURGICAL HISTORY: Feeding tube. REVIEW OF SYSTEMS: There is a brief mention of acute kidney injury, gout, and seizures in the past. Note, there is no family member present to help with additional history. There has been no chest pain, palpitation, dizziness, syncope, claudication or edema described. There is no description of disorders, arthritis or skin disorders. PHYSICAL EXAMINATION: GENERAL: Well developed, mildly overweight, no acute distress. HEENT: Eyes, nose and throat unremarkable. NECK: Reveals JVD. There are no bruits. Neck is supple, no masses. NEUROLOGIC: The patient is alert, speaks softly and does not answer questions regularly. There is limited response to commands. LUNGS: Clear. No labored respirations. HEART: Regular rhythm, S4 gallop. No murmurs, rubs appreciable. ABDOMEN: Soft, nontender, no masses. Bowel sounds intact. EXTREMITIES: No cyanosis, clubbing, edema. Peripheral pulses are intact, but diminished. There appears to be left hemiparesis, although it is hard to tell given the inability to respond to questions. LABORATORY DATA: EKG, sinus rhythm with diffuse mild ST elevation. Troponins are minimally elevated. IMPRESSION: 1. Abnormal troponins: Not suggestive of an acute coronary syndrome. We will check the previous record to see if she has ever had a stress test or coronary angiogram. Given her neurologic status, a conservative approach will be taken. 2. Abnormal EKG with diffuse ST elevation: Consider pericarditis. No chest pain described. An echocardiogram will be recommended. 3. Uncontrolled hypertension: Improved. 4. Anemia. 5. Dementia. 6. Diabetes. 7. History of seizure disorder. 8. Abnormal chest x-ray and CAT scan: Suggestive of scar tissue as opposed to an acute infiltrate or pulmonary edema. 9. History of reflux. 10. History of cerebrovascular accident. PLAN: Continue current therapy. Echocardiogram. Check previous workup. Thank you for this consultation. TID: [id number] RECEIPT: [id number] TIFFANY/EKT
[2022-01-07] MEDS: INSULIN GLARGINE 100 UNITS/ML SUB-Q SCH (22:52)
[2022-01-08] MEDS: METOPROLOL TARTRATE 25 MG TAB PO SCH ×4 (04:48→22:26)
[2022-01-08] MEDS: NITROGLYCERIN 0.2 MG PATCH 24HR TD SCH ×2 (04:50→05:16)
[2022-01-08 06:28] LABS: Hematocrit 26.3 % (30.3-42.9); Hemoglobin 8.2 gm/dl (10.1-14.3); Mean Corpuscular HGB Conc 31 % (30-34); Mean Corpuscular Volume 83 fl (79-97); Platelet Count 369 K/mm3 (140-440); Red Blood Count 3.15 M/mm3 (3.65-5.03)
[2022-01-08 06:36] LABS: Red Cell Distribution Width 21.9 % (13.2-15.2)
[2022-01-08 06:46] LABS: Alanine Aminotransferase 12 units/L (7-56); Albumin 3.6 g/dL (3.9-5); Blood Urea Nitrogen 23 mg/dL (7-17); Calcium 9.7 mg/dL (8.4-10.2); Hemolysis Index 3
[2022-01-08 06:51] LABS: BUN/Creatinine Ratio 38
--- NOTE | 2022-01-08 07:07 | Progress Note ---
Assessment and Plan Assessment and plan: #COVID-19 infection/Pneumonia #Bilateral pneumonia community-acquired #Acute hypoxic respiratory failure -COVID-19 PCR positive -titrate O2 sats to be greater than 90%; currently on 2LNC will wean as tolerated -continue ceftriaxone and azithromycin for now, if procalcitonin low will discontinue -continue dexamethasone x 10 days (day 3 of 10) -continue remedsivir (dose 3 of 5) -continue contact precautions -d-dimer 900.9 (839.18); LDH 159; ferritin 336.7 #Sepsis secondary to COVID-19 -WBC count elevated, tachycardia; afebrile -CTA chest negative for PE, BLE duplex negative for DVT -continue care as above #Dehydration -continue IVFs, likely secondary to above #Elevated troponin/non-ST elevation NV -CKMB wnl -mild troponin elevation, has plateaued -Cardiology following, assistance appreciated #Elevated D-dimers Accu-Chek, sliding scale coverage, ADA diet, insulin as needed Check hemoglobin A1c Adjust insulin as necessary #Insulin dependent diabetes mellitus, controlled -HgbA1c 5.6% -patient prescribed lantus 10Uqhs, tradjenta outpatient -continue carbohydrate consistent tube feeds -SSI with accuchecks while inpatient with lantus at home dose #Hyperlipidemia -continue statin #History of seizure disorder -seizure precautions -continue Vimpat and Keppra #History of gout -continue allopurinol for prevention of gout #History of dementia -stable #DVT/GI prophylaxis On anticoagulation and GI prophylaxis #Discharge planning -once clinically stable, patient will be discharged back to [facility] History Interval history: No acute events overnight per nursing. Patient appears to be comfortable on 2LNC. Spontaneously opens and closes her eyes to verbal stimuli. Hospitalist Physical - Physical exam Narrative exam: GENERAL: Well-developed well-nourished. In no acute distress. HEENT: NC @2LPM NECK: Supple. CHEST/LUNGS: Coarse breath sounds bilaterally. HEART/CARDIOVASCULAR: RRR. No murmur, rubs or gallops appreciated. ABDOMEN: +Peg tube. +BS. NT/ND. SKIN: No rashes noted. NEURO: Patient does not follow commands. MUSCULOSKELETAL: No joint effusion EXTREMITIES: No cyanosis, clubbing or edema. PSYCH: Unable to assess. Patient mute and nonverbal at baseline. - Constitutional Vitals: Temp Pulse Resp BP Pulse Ox 98.0 F 109 H 18 139/77 100 01/08/22 04:59 01/08/22 05:16 01/08/22 04:59 01/08/22 05:16 01/08/22 04:56 General appearance: Present: mild distress, well-nourished, other (Noncommunicative) HEART Score - HEART Score Age: > 65 Risk factors: > 3 risk factors or hx of atherosclerotic disease Troponin: Troponin T 0.070 ng/mL (0.00-0.029) H 01/06/22 04:16 Troponin: 1-3x normal limit - Critical Actions Critical Actions: 4-6 pts:12-16.6% risk of adverse cardiac event. Should be admitted Results - Labs CBC & Chem 7: 01/08/22 05:55 01/08/22 05:55 Labs: Laboratory Last Values WBC 17.6 K/mm3 (4.5-11.0) H 01/08/22 05:55 RBC 3.15 M/mm3 (3.65-5.03) L 01/08/22 05:55 Hgb 8.2 gm/dl (10.1-14.3) L 01/08/22 05:55 Hct 26.3 % (30.3-42.9) L D 01/08/22 05:55 MCV 83 fl (79-97) 01/08/22 05:55 MCH 26 pg (28-32) L 01/08/22 05:55 MCHC 31 % (30-34) 01/08/22 05:55 RDW 21.9 % (13.2-15.2) H 01/08/22 05:55 Plt Count 369 K/mm3 (140-440) 01/08/22 05:55 Lymph % (Auto) 18.5 % (13.4-35.0) 01/05/22 04:57 [place] % (Auto) 5.5 % (0.0-7.3) 01/05/22 04:57 Eos % (Auto) 2.2 % (0.0-4.3) 01/05/22 04:57 Baso % (Auto) 0.4 % (0.0-1.8) 01/05/22 04:57 Lymph # (Auto) 1.7 K/mm3 (1.2-5.4) 01/05/22 04:57 [place] # (Auto) 0.5 K/mm3 (0.0-0.8) 01/05/22 04:57 Eos # (Auto) 0.2 K/mm3 (0.0-0.4) 01/05/22 04:57 Baso # (Auto) 0.0 K/mm3 (0.0-0.1) 01/05/22 04:57 Add Manual Diff Complete 01/06/22 04:16 Total Counted 100 01/06/22 04:16 Seg Neutrophils % [employer] 01/06/22 04:16 Seg Neuts % (Manual) 95.0 % (40.0-70.0) H 01/06/22 04:16 Band Neutrophils % 0 % 01/06/22 04:16 Lymphocytes % (Manual) 4.0 % (13.4-35.0) L 01/06/22 04:16 Reactive Lymphs % (Man) 0 % 01/06/22 04:16 Monocytes % (Manual) 1.0 % (0.0-7.3) 01/06/22 04:16 Eosinophils % (Manual) 0 % (0.0-4.3) 01/06/22 04:16 Basophils % (Manual) 0 % (0.0-1.8) 01/06/22 04:16 Metamyelocytes % 0 % 01/06/22 04:16 Myelocytes % 0 % 01/06/22 04:16 Promyelocytes % 0 % 01/06/22 04:16 Blast Cells % 0 % 01/06/22 04:16 Nucleated RBC % Not Reportable 01/06/22 04:16 Seg Neutrophils # 6.8 K/mm3 (1.8-7.7) 01/05/22 04:57 Seg Neutrophils # Man 9.7 K/mm3 (1.8-7.7) H 01/06/22 04:16 Band Neutrophils # 0.0 K/mm3 01/06/22 04:16 Lymphocytes # (Manual) 0.4 K/mm3 (1.2-5.4) L 01/06/22 04:16 Abs React Lymphs (Man) 0.0 K/mm3 01/06/22 04:16 Monocytes # (Manual) 0.1 K/mm3 (0.0-0.8) 01/06/22 04:16 Eosinophils # (Manual) 0.0 K/mm3 (0.0-0.4) 01/06/22 04:16 Basophils # (Manual) 0.0 K/mm3 (0.0-0.1) 01/06/22 04:16 Metamyelocytes # 0.0 K/mm3 01/06/22 04:16 Myelocytes # 0.0 K/mm3 01/06/22 04:16 Promyelocytes # 0.0 K/mm3 01/06/22 04:16 Blast Cells # 0.0 K/mm3 01/06/22 04:16 WBC Morphology Not Reportable 01/06/22 04:16 Hypersegmented Neuts Not Reportable 01/06/22 04:16 Hyposegmented Neuts Not Reportable 01/06/22 04:16 Hypogranular Neuts Not Reportable 01/06/22 04:16 Smudge Cells Not Reportable 01/06/22 04:16 Toxic Granulation Not Reportable 01/06/22 04:16 Toxic Vacuolation Not Reportable 01/06/22 04:16 Dohle Bodies Not Reportable 01/06/22 04:16 Pelger-Huet Anomaly Not Reportable 01/06/22 04:16 [place] Rods Not Reportable 01/06/22 04:16 Platelet Estimate Consistent w auto 01/06/22 04:16 Clumped Platelets Not Reportable 01/06/22 04:16 Plt Clumps, EDTA Not Reportable 01/06/22 04:16 Large Platelets Not Reportable 01/06/22 04:16 Giant Platelets Not Reportable 01/06/22 04:16 Platelet Satelliting Not Reportable 01/06/22 04:16 Plt Morphology Comment Not Reportable 01/06/22 04:16 RBC Morphology Not Reportable 01/06/22 04:16 Dimorphic RBCs Not Reportable 01/06/22 04:16 Polychromasia Few 01/06/22 04:16 Hypochromasia 1+ 01/06/22 04:16 Poikilocytosis Not Reportable 01/06/22 04:16 Anisocytosis 1+ 01/06/22 04:16 Microcytosis Not Reportable 01/06/22 04:16 Macrocytosis Not Reportable 01/06/22 04:16 Spherocytes Not Reportable 01/06/22 04:16 Pappenheimer Bodies Not Reportable 01/06/22 04:16 Sickle Cells Not Reportable 01/06/22 04:16 Target Cells Not Reportable 01/06/22 04:16 Tear Drop Cells Not Reportable 01/06/22 04:16 Ovalocytes Not Reportable 01/06/22 04:16 Helmet Cells Not Reportable 01/06/22 04:16 Martin-Lansford Bodies Not Reportable 01/06/22 04:16 Agency Rings Not Reportable 01/06/22 04:16 [place] Cells Not Reportable 01/06/22 04:16 Bite Cells Not Reportable 01/06/22 04:16 Crenated Cell Not Reportable 01/06/22 04:16 Elliptocytes Not Reportable 01/06/22 04:16 Acanthocytes (Spur) Not Reportable 01/06/22 04:16 Rouleaux Not Reportable 01/06/22 04:16 Hemoglobin C Crystals Not Reportable 01/06/22 04:16 Schistocytes Not Reportable 01/06/22 04:16 Malaria parasites Not Reportable 01/06/22 04:16 Kevin Bodies Not Reportable 01/06/22 04:16 Hem Pathologist Commnt No 01/06/22 04:16 PT 13.1 Sec. (12.2-14.9) 01/05/22 04:57 INR 0.90 (0.87-1.13) 01/05/22 04:57 APTT 24.9 Sec. (24.2-36.6) 01/05/22 04:57 D-Dimer 900.95 ng/mlDDU (0-234) H 01/08/22 05:55 Sodium 140 mmol/L (137-145) 01/08/22 05:55 Potassium 3.9 mmol/L (3.6-5.0) 01/08/22 05:55 Chloride 104.3 mmol/L (98-107) 01/08/22 05:55 Carbon Dioxide 26 mmol/L (22-30) 01/08/22 05:55 Anion Gap 14 mmol/L 01/08/22 05:55 BUN 23 mg/dL (7-17) H 01/08/22 05:55 Creatinine 0.6 mg/dL (0.6-1.2) 01/08/22 05:55 Estimated GFR > 60 ml/min 01/08/22 05:55 BUN/Creatinine Ratio 38 % 01/08/22 05:55 Glucose 89 mg/dL (65-100) 01/08/22 05:55 POC Glucose 90 mg/dL (70-105) 01/08/22 04:56 Hemoglobin A1c 5.6 % (4-6) 01/06/22 04:16 Lactic Acid 1.90 mmol/L (0.7-2.0) 01/05/22 04:57 Calcium 9.7 mg/dL (8.4-10.2) 01/08/22 05:55 Ferritin 336.7 ng/mL (10.0-200.0) H 01/08/22 05:55 Total Bilirubin 0.20 mg/dL (0.1-1.2) 01/08/22 05:55 Direct Bilirubin < 0.2 mg/dL (0-0.2) 01/05/22 07:14 Indirect Bilirubin 0.0 mg/dL 01/05/22 07:14 AST 12 units/L (5-40) 01/08/22 05:55 ALT 12 units/L (7-56) 01/08/22 05:55 Alkaline Phosphatase 53 units/L (35-129) 01/08/22 05:55 Lactate Dehydrogenase 159 units/L (91-180) 01/08/22 05:55 Total Creatine Kinase 44 units/L (30-135) 01/06/22 10:58 CK-MB (CK-2) 1.5 ng/mL (0.0-4.0) 01/06/22 10:58 CK-MB (CK-2) Rel Index 3.4 (0-4) 01/06/22 10:58 Troponin T 0.070 ng/mL (0.00-0.029) H 01/06/22 04:16 C-Reactive Protein 1.60 mg/dL (0.00-1.30) H 01/06/22 19:42 NT-Pro-B Natriuret Pep 211.1 pg/mL (0-900) 01/05/22 04:57 Total Protein 7.2 g/dL (6.3-8.2) 01/08/22 05:55 Albumin 3.6 g/dL (3.9-5) L 01/08/22 05:55 Albumin/Globulin Ratio 1.0 % 01/08/22 05:55 Triglycerides 132 mg/dL (2-149) 01/05/22 04:57 Cholesterol 113 mg/dL (50-199) 01/05/22 04:57 LDL Cholesterol Direct 54 mg/dL (50-130) 01/05/22 04:57 HDL Cholesterol 36 mg/dL (40-59) L 01/05/22 04:57 Cholesterol/HDL Ratio 3.13 % 01/05/22 04:57 Procalcitonin < 0.05 ng/mL (<0.15) 01/06/22 19:42 Urine Color Yellow (Yellow) 01/05/22 13:18 Urine Turbidity Hazy (Clear) 01/05/22 13:18 Urine pH 8.0 (5.0-7.0) H 01/05/22 13:18 Ur Specific [place] 1.011 (1.003-1.030) 01/05/22 13:18 Urine Protein <15 mg/dl mg/dL (Negative) 01/05/22 13:18 Urine Glucose (UA) Neg mg/dL (Negative) 01/05/22 13:18 Urine Ketones Neg mg/dL (Negative) 01/05/22 13:18 Urine Blood Neg (Negative) 01/05/22 13:18 Urine Nitrite Neg (Negative) 01/05/22 13:18 Urine Bilirubin Neg (Negative) 01/05/22 13:18 Urine Urobilinogen < 2.0 mg/dL (<2.0) 01/05/22 13:18 Ur Leukocyte Esterase Neg (Negative) 01/05/22 13:18 Urine WBC (Auto) < 1.0 /HPF (0.0-6.0) 01/05/22 13:18 Urine RBC (Auto) < 1.0 /HPF (0.0-6.0) 01/05/22 13:18 Coronavirus (PCR) Positive (Negative) A 01/06/22 08:12 Microbiology: Microbiology 01/05/22 04:57 Peripheral/Venous Blood Culture - Preliminary NO GROWTH AFTER 48 HOURS 01/05/22 04:51 Peripheral/Venous Blood Culture - Preliminary NO GROWTH AFTER 48 HOURS Rosales/IV: Voiding Method External Female Catheter Active Medications - Current Medications Current Medications: Generic Name Dose Route Start Last Admin Trade Name Freq PRN Reason Stop Dose Admin Acetaminophen 650 mg 01/05/22 20:17 Acetaminophen 325 Mg Tab PO Q4H PRN Pain MILD(1-3)/Fever >100.5/FERRARI Albuterol/Ipratropium 1 ampul 01/06/22 14:00 01/07/22 23:40 Ipratropium/Albuterol Sulfate 3 Ml Ampul.Neb IH Not Given TIDRT CONNIE Allopurinol 300 mg 01/07/22 10:00 01/07/22 10:06 Allopurinol 300 Mg Tab FEEDTUBE 300 mg DAILY CONNIE Administration Amlodipine Besylate 10 mg 01/07/22 10:00 01/07/22 10:05 Amlodipine 10 Mg Tab FEEDTUBE 10 mg DAILY CONNIE Administration Lipase/Protease/Amylase 1 each 01/06/22 12:04 Lipase 10,500/Protease 25,000/Amylase 43,750 (Units) Dr Collier FEEDTUBE PRN PRN For Clogged Feeding Tube Ascorbic Acid 500 mg 01/06/22 22:00 01/07/22 22:52 Ascorbic Acid 500 Mg Tab PO 500 mg BID CONNIE Administration Aspirin 81 mg 01/07/22 10:00 01/07/22 10:06 Aspirin 81 Mg Tab Chew FEEDTUBE 81 mg QDAY CONNIE Administration Atorvastatin Calcium 10 mg 01/06/22 22:00 01/07/22 22:52 Atorvastatin 10 Mg Tab FEEDTUBE 10 mg QHS CONNIE Administration Cholecalciferol 1,000 unit 01/07/22 10:00 01/07/22 10:06 Cholecalciferol (Vit D3) 1000 Unit (25 Mcg) Tab PO 1,000 unit QDAY CONNIE Administration Dexamethasone 8 mg 01/05/22 21:00 01/07/22 10:06 Dexamethasone 4 Mg/Ml Vial IV 8 mg Q24HR CONNIE Administration Docusate Sodium 100 mg 01/05/22 22:00 01/07/22 22:51 Docusate Sodium 100 Mg/10 Ml Oral Liqd FEEDTUBE 100 mg BID CONNIE Administration Ferrous Sulfate 300 mg 01/07/22 10:00 01/07/22 13:37 Ferrous Sulfate 300 Mg (60mg Elemental Iron) / 5 Ml Oral Liqd FEEDTUBE 300 mg QDAY CONNIE Administration Guaifenesin 10 ml 01/07/22 14:23 Guaifenesin Dm 200/20 Mg Oral Liqd 10 Ml PO Q4H PRN Cough Heparin Sodium (Porcine) 5,000 unit 01/05/22 22:00 01/07/22 22:52 Heparin 5,000 Unit/1 Ml Vial SUB-Q 5,000 unit Q12HR CONNIE Administration Hydralazine HCl 10 mg 01/06/22 00:06 01/06/22 00:55 Hydralazine 20 Mg/1 Ml Inj IV 10 mg Q4H PRN Administration sbp greater than 160 Ceftriaxone Sodium 2 gm in 100 mls @ 200 mls/hr 01/05/22 22:00 01/07/22 10:05 Rocephin/Ns 2 Gm/100 Ml IV 01/10/22 21:59 200 mls/hr Q24HR CONNIE Administration Protocol Azithromycin 500 mg in 250 mls @ 250 mls/hr 01/06/22 10:00 01/07/22 10:04 Zithromax/Ns IV 01/10/22 10:59 250 mls/hr Q24HR CONNIE Administration Remdesivir 100 mg/ Sodium 250 mls @ 500 mls/hr 01/07/22 14:00 01/07/22 15:11 Chloride IV 01/10/22 14:29 500 mls/hr Q24HR@1400 CONNIE Administration Insulin Glargine 10 units 01/05/22 22:00 01/07/22 22:52 Insulin Glargine 100 Units/Ml SUB-Q 10 units QHS CONNIE Administration Lacosamide 100 mg 01/05/22 22:00 01/07/22 22:51 Lacosamide 100 Mg Tab PO 100 mg Q12HR CONNIE Administration Lansoprazole 30 mg 01/06/22 10:00 01/07/22 10:05 Lansoprazole 30 Mg Solutab FEEDTUBE 30 mg QDAY CONNIE Administration Levetiracetam 1,000 mg 01/05/22 22:00 01/07/22 22:51 Levetiracetam 500 Mg/5 Ml Oral Liqd FEEDTUBE 1,000 mg BID CONNIE Administration Linagliptin 5 mg 01/06/22 08:00 01/07/22 10:06 Linagliptin 5 Mg Tab PO 5 mg QAMDIAB CONNIE Administration Metoclopramide HCl 5 mg 01/06/22 09:00 Metoclopramide 10 Mg/2 Ml Inj IV Q6H PRN Nausea And Vomiting Metoprolol Tartrate 25 mg 01/07/22 14:00 01/08/22 05:15 Metoprolol Tartrate 25 Mg Tab PO Not Given Q8HR [facility] Morphine Sulfate 2 mg 01/05/22 20:21 Morphine 2 Mg/1 Ml Inj IV Q4H PRN Pain, Moderate (4-6) Nitroglycerin 0.2 mg 01/08/22 06:00 01/08/22 05:16 Nitroglycerin 0.2 Mg Patch 24hr TD Not Given QDAY@0600 [facility] Ondansetron HCl 4 mg 01/05/22 20:17 01/07/22 14:20 Ondansetron 4 Mg/2 Ml Inj IV 4 mg Q8H PRN Administration Nausea And Vomiting Potassium Chloride 20 meq 01/05/22 20:15 01/07/22 10:06 Potassium Chloride 20 Meq Packet FEEDTUBE 20 meq QDAY CONNIE Administration Simple Syrup 15 ml 01/06/22 12:04 Simple Syrup 15 Ml FEEDTUBE PRN PRN Hypoglycemia Simple Syrup 30 ml 01/06/22 12:04 Simple Syrup 15 Ml FEEDTUBE PRN PRN Hypoglycemia Sodium Bicarbonate 325 mg 01/06/22 12:04 Sodium Bicarbonate 325 Mg Tab FEEDTUBE PRN PRN For Clogged Feeding Tube Sodium Chloride 10 ml 01/05/22 22:00 01/07/22 22:53 Sodium Chloride 0.9% 10 Ml Flush Syringe IV 10 ml BID CONNIE Administration Sodium Chloride 10 ml 01/05/22 20:17 Sodium Chloride 0.9% 10 Ml Flush Syringe IV PRN PRN LINE FLUSH Sodium Chloride 50 ml 01/07/22 14:00 01/07/22 15:11 Sodium Chloride 0.9% 50 Ml Ivpb IV 01/11/22 14:01 Not Given Q24HR@1400 CONNIE Zinc Sulfate 220 mg 01/06/22 22:00 01/07/22 22:52 Zinc Sulfate 220 Mg Cap PO 220 mg BID CONNIE Administration Nutrition/Malnutrition Assess - Dietary Evaluation Nutrition/Malnutrition Findings: Nutrition Notes Start: 01/06/22 11:50 Freq: Status: Active Protocol: Document 01/06/22 11:50 CARMEN (Rec: 01/06/22 12:27 CARMEN [id number]) Nutrition Notes Need for Assessment generated from: MD Order Initial or Follow up Assessment Current Diagnosis Diabetes,Hypertension,Stroke, Hyperlipidemia Other Pertinent Diagnosis Bilateral Pneumonia, Dehydration, NSTEMI, Gout, Seizure, Dementia. Current Diet TF-Glucerna 1.2 Sarbjit @ 55 ml/hr (from D 01/06). Labs/Tests 01/06: Crea 0.5, Glu 170, HbA1c 5.6. Pertinent Medications 01/06: Lantus 10U, KCl 20mEq, others nutritionally unremarkable. Height 5 ft 6 in Weight 72.57 kg [place] Body Weight (kg) 59.09 BMI 25.8 Intake Prior to Admission Good Weight change and time frame Pt denies having loss body weight [employer]. Pt's last visit 2 weeks ago: Wt 65 Kg, BMI 23.1; a discrepancy of 7.57 Kg body weight gain reported. Weight Status Appropriate Subjective/Other Information RD consult for write/manage TF . Pt has PEG tube poa, according to Physical Assessment History notes. TF will be prescribed. Pt is on Nasal [place], O2 saturation @ 98%, according to Physical Assessment History notes. Pt is swallow impaired, according to Physical Assessment History notes. Percent of energy/protein needs met: Prescribed TF-Glucerna 1.2 Sarbjit @ 55 ml/hr provides for energy/protein needs (1,595 Kcal/80 g) during LOS, 96% Kcal; 100% AA. Burn Absent Trauma Absent GI Symptoms None Difficulty In Swallowing Food Allergy No Skin Integrity/Comment Assessment WNL. Current % PO Other Minimum of two criteria No #1 Nutrition Diagnosis Inadequate oral intake, Swallowing difficulty Etiology CVA. As Evidenced by Signs and Symptoms Pt has PEG tube poa. Is patient on ventilator? No Is Patient Ambulatory and/or Out of Bed No REE-([facility]-confined to bed) 1438.128 Kcal/Kg value to use for calculation 23 Approximate Energy Requirements Using 1669 kcal/Kg Calculation Used for Recommendations Kcal/kg Additional Notes Protein: 1-1.2 g/Kg ABW; 73-88 g/day. Fluids: 1 ml/Kcal, or as per MD. Nutrition Intervention Nutrition Support: Start TF-Glucerna 1.2 Sarbjit @ 55 ml/hr. Flush: 100 ml water Q 4 hr, or as per MD. Kcal 1,595 Protein (gm) 80 Carbohydrates (gm) 152 Fat (gm) 80 Fluid (mL) 1,070 Fiber (gm) 21 % RDI: 96% Kcal; 100% AA. Goal #1 Provide at least 75% of energy /protein needs through Enteral Feeding during LOS. Goal #2 Maintain body weight within +/ -3% of admission body weight during LOS. Follow-Up By: 01/08/22 Additional Comments Start monitoring TF tolerance and BM.
[2022-01-08] MEDS: IPRATROPIUM/ALBUTEROL SULFATE 3 ML AMPUL.NEB IH SCH ×3 (08:01→20:18)
[2022-01-08] MEDS: DOCUSATE SODIUM 100 MG/10 ML ORAL LIQD FEEDTUBE SCH ×2 (09:24→22:24)
[2022-01-08] MEDS: levETIRAcetam 500 MG/5 ML ORAL LIQD FEEDTUBE SCH ×2 (09:24→22:24)
[2022-01-08] MEDS: POTASSIUM CHLORIDE 20 MEQ PACKET FEEDTUBE SCH (09:24)
[2022-01-08] MEDS: AZITHROMYCIN/NS 500 MG/250 ML 500 MG/250 ML BAG IV SCH (09:24)
[2022-01-08] MEDS: ASPIRIN 81 MG TAB CHEW FEEDTUBE SCH (09:25)
[2022-01-08] MEDS: CHOLECALCIFEROL (VIT D3) 1000 UNIT (25 mcg) TAB PO SCH (09:25)
[2022-01-08] MEDS: LINAGLIPTIN 5 MG TAB PO SCH (09:25)
[2022-01-08] MEDS: HEPARIN 5,000 UNIT/1 ML VIAL SUB-Q SCH ×2 (09:25→22:25)
[2022-01-08] MEDS: LACOSAMIDE 100 MG TAB PO SCH ×2 (09:25→22:24)
[2022-01-08] MEDS: LANSOPRAZOLE 30 MG SOLUTAB FEEDTUBE SCH (09:25)
[2022-01-08] MEDS: ASCORBIC ACID 500 MG TAB PO SCH ×2 (09:25→22:25)
[2022-01-08] MEDS: allopurinoL 300 MG TAB FEEDTUBE SCH (09:25)
[2022-01-08] MEDS: cefTRIAXone/NS 2 GM/100 ML 2 GM/100 ML BAG IV SCH (09:25)
[2022-01-08] MEDS: ZINC SULFATE 220 MG CAP PO SCH ×2 (09:25→22:24)
[2022-01-08] MEDS: dexAMETHasone 4 MG/ML VIAL IV SCH (09:25)
[2022-01-08] MEDS: amLODIPine 10 MG TAB FEEDTUBE SCH (09:25)
--- NOTE | 2022-01-08 10:47 | Progress Note ---
Assessment and Plan - Patient Problems (1) Elevated troponin Current Visit: Yes Status: Acute Subjective Date of service: 01/08/22 Interval history: NONVERBAL,,ALERT Objective Vital Signs Temp Pulse Pulse Resp Resp BP BP 01/08/22 08:35 01/08/22 08:00 96 H 20 01/08/22 05:16 109 H 139/77 01/08/22 05:15 109 H 139/77 01/08/22 04:59 98.0 F 18 139/77 01/08/22 04:56 107 H 01/08/22 01:08 97.3 F L 122 H 20 159/76 01/08/22 00:00 01/07/22 23:17 97.3 F L 20 159/76 01/07/22 14:08 118 H 24 134/77 01/07/22 13:39 90 01/07/22 13:29 89 19 01/07/22 12:27 Pulse Ox 01/08/22 08:35 93 01/08/22 08:00 95 01/08/22 05:16 01/08/22 05:15 01/08/22 04:59 01/08/22 04:56 100 01/08/22 01:08 96 01/08/22 00:00 93 01/07/22 23:17 01/07/22 14:08 100 01/07/22 13:39 01/07/22 13:29 01/07/22 12:27 98 - Physical Examination General: No Apparent Distress HEENT: Positive: PERRL Neck: Positive: neck supple Cardiac: Positive: Reg Rate and Rhythm Lungs: Positive: Decreased Breath Sounds Neuro: Positive: Grossly Intact, Weakness (Generalized lethargy) Abdomen: Positive: Soft Skin: Positive: Clear Extremities: Present: normal. Absent: edema - Labs and Meds Cardiac Enzymes 01/08/22 01/08/22 Range/Units 05:55 05:55 AST 12 (5-40) units/L Lactate Dehydrogenase 159 (91-180) units/L CBC 01/08/22 Range/Units 05:55 WBC 17.6 H (4.5-11.0) K/mm3 RBC 3.15 L (3.65-5.03) M/mm3 Hgb 8.2 L (10.1-14.3) gm/dl Hct 26.3 L D (30.3-42.9) % Plt Count 369 (140-440) K/mm3 Comprehensive Metabolic Panel 01/08/22 Range/Units 05:55 Sodium 140 (137-145) mmol/L Potassium 3.9 (3.6-5.0) mmol/L Chloride 104.3 (98-107) mmol/L Carbon Dioxide 26 (22-30) mmol/L BUN 23 H (7-17) mg/dL Creatinine 0.6 (0.6-1.2) mg/dL Glucose 89 (65-100) mg/dL Calcium 9.7 (8.4-10.2) mg/dL AST 12 (5-40) units/L ALT 12 (7-56) units/L Alkaline Phosphatase 53 (35-129) units/L Total Protein 7.2 (6.3-8.2) g/dL Albumin 3.6 L (3.9-5) g/dL - Imaging and Cardiology EKG: report reviewed (Sinus rhythm no acute ST-T wave changes)
--- NOTE | 2022-01-08 13:02 | XRay Report ---
ABDOMEN 2 VIEW(S) INDICATION / CLINICAL INFORMATION: vomiting. COMPARISON: 10/30/2021 FINDINGS: TUBES / LINES: Gastrostomy tube in the left upper quadrant. BOWEL GAS PATTERN: Large amount of colonic stool throughout the entire colon. FREE AIR / EXTRALUMINAL GAS: None seen. ADDITIONAL FINDINGS: No significant additional findings. IMPRESSION: 1. Findings suggestive of severe constipation or evolving fecal impaction. Signer Name: Danyel Hightower MD Signed: 01/08/2022 12:58 PM Workstation Name: [id number]
[2022-01-08] MEDS: FERROUS SULFATE 300 MG (60MG Elemental Iron) / 5 mL ORAL LIQD FEEDTUBE SCH (14:52)
[2022-01-08] MEDS: REMDESIVIR 100 MG in SODIUM CHLORIDE 0.9% 250ML 250 ML IV SCH (14:52)
[2022-01-08] MEDS: SODIUM CHLORIDE 0.9% 50 ML IVPB IV SCH (15:33)
[2022-01-08] MEDS ORDERED: POLYETHYLENE GLYCOL 3350 17 GM POWDER PO ONE (16:00)
[2022-01-08] MEDS: INSULIN GLARGINE 100 UNITS/ML SUB-Q SCH (22:27)
[2022-01-09] MEDS: METOPROLOL TARTRATE 25 MG TAB PO SCH ×3 (06:45→22:10)
[2022-01-09] MEDS: NITROGLYCERIN 0.2 MG PATCH 24HR TD SCH (06:47)
[2022-01-09 07:37] LABS: Hematocrit 23.8 % (30.3-42.9); Hemoglobin 7.6 gm/dl (10.1-14.3); Mean Corpuscular HGB Conc 32 % (30-34); Mean Corpuscular Volume 82 fl (79-97); Platelet Count 303 K/mm3 (140-440); Red Blood Count 2.89 M/mm3 (3.65-5.03)
[2022-01-09 07:40] LABS: Alanine Aminotransferase 11 units/L (7-56); Albumin 3.3 g/dL (3.9-5); Blood Urea Nitrogen 22 mg/dL (7-17); Calcium 9.7 mg/dL (8.4-10.2); Hemolysis Index 0
--- NOTE | 2022-01-09 07:42 | Progress Note ---
Assessment and Plan Assessment and plan: #COVID-19 infection/Pneumonia #Bilateral pneumonia community-acquired #Acute hypoxic respiratory failure -COVID-19 PCR positive -titrate O2 sats to be greater than 90%; currently on 2LNC will wean as tolerated -continue ceftriaxone and azithromycin for now, if procalcitonin low will discontinue -continue dexamethasone x 10 days (day 4 of 10) -continue remedsivir (dose 4 of 5) -continue contact precautions -d-dimer 900.9 (839.18); LDH 159; ferritin 336.7 #Sepsis secondary to [id number]-10-teoibypio -WBC count elevated, tachycardia; afebrile -CTA chest negative for PE, BLE duplex negative for DVT -continue care as above #Dehydration -continue IVFs, likely secondary to above #Severe constipation -continue miralax -will order enema x1 -tube feeds held for now -if no improvement may need manual disimpaction #Elevated troponin/non-ST elevation MN -CKMB wnl -mild troponin elevation, has plateaued -Cardiology following, assistance appreciated #Elevated D-dimers Accu-Chek, sliding scale coverage, ADA diet, insulin as needed Check hemoglobin A1c Adjust insulin as necessary #Insulin dependent diabetes mellitus, controlled -HgbA1c 5.6% -patient prescribed lantus 10Uqhs, tradjenta outpatient -continue carbohydrate consistent tube feeds -SSI with accuchecks while inpatient with lantus at home dose #Hyperlipidemia -continue statin #History of seizure disorder -seizure precautions -continue Vimpat and Keppra #History of gout -continue allopurinol for prevention of gout #History of dementia -stable #DVT/GI prophylaxis On anticoagulation and GI prophylaxis #Discharge planning -once clinically stable, patient will be discharged back to [facility] History Interval history: No acute events overnight per nursing. Patient appears to be comfortable on 2LNC. Spontaneously opens and closes her eyes to verbal stimuli. Hospitalist Physical - Physical exam Narrative exam: GENERAL: Well-developed well-nourished. In no acute distress. HEENT: NC @2LPM CHEST/LUNGS: Coarse breath sounds bilaterally. HEART/CARDIOVASCULAR: RRR. No murmur, rubs or gallops appreciated. ABDOMEN: +Peg tube. +BS. NT/ND. NEURO: Patient does not follow commands. EXTREMITIES: No cyanosis, clubbing or edema. PSYCH: Unable to assess. Patient mute and nonverbal at baseline. - Constitutional Vitals: Temp Pulse Resp BP Pulse Ox 98.1 F 91 H 20 137/73 98 01/09/22 06:24 01/09/22 06:47 01/09/22 06:24 01/09/22 06:47 01/09/22 06:24 General appearance: Present: mild distress, well-nourished, other (Noncommunicative) HEART Score - HEART Score Age: > 65 Risk factors: > 3 risk factors or hx of atherosclerotic disease Troponin: Troponin T 0.070 ng/mL (0.00-0.029) H 01/06/22 04:16 Troponin: 1-3x normal limit - Critical Actions Critical Actions: 4-6 pts:12-16.6% risk of adverse cardiac event. Should be admitted Results - Labs CBC & Chem 7: 01/09/22 06:25 01/09/22 06:25 Labs: Laboratory Last Values WBC 17.6 K/mm3 (4.5-11.0) H 01/08/22 05:55 RBC 3.15 M/mm3 (3.65-5.03) L 01/08/22 05:55 Hgb 8.2 gm/dl (10.1-14.3) L 01/08/22 05:55 Hct 26.3 % (30.3-42.9) L D 01/08/22 05:55 MCV 83 fl (79-97) 01/08/22 05:55 MCH 26 pg (28-32) L 01/08/22 05:55 MCHC 31 % (30-34) 01/08/22 05:55 RDW 21.9 % (13.2-15.2) H 01/08/22 05:55 Plt Count 369 K/mm3 (140-440) 01/08/22 05:55 Lymph % (Auto) 18.5 % (13.4-35.0) 01/05/22 04:57 Harding % (Auto) 5.5 % (0.0-7.3) 01/05/22 04:57 Eos % (Auto) 2.2 % (0.0-4.3) 01/05/22 04:57 Baso % (Auto) 0.4 % (0.0-1.8) 01/05/22 04:57 Lymph # (Auto) 1.7 K/mm3 (1.2-5.4) 01/05/22 04:57 Harding # (Auto) 0.5 K/mm3 (0.0-0.8) 01/05/22 04:57 Eos # (Auto) 0.2 K/mm3 (0.0-0.4) 01/05/22 04:57 Baso # (Auto) 0.0 K/mm3 (0.0-0.1) 01/05/22 04:57 Add Manual Diff Complete 01/06/22 04:16 Total Counted 100 01/06/22 04:16 Seg Neutrophils % Pit Operator 01/06/22 04:16 Seg Neuts % (Manual) 95.0 % (40.0-70.0) H 01/06/22 04:16 Band Neutrophils % 0 % 01/06/22 04:16 Lymphocytes % (Manual) 4.0 % (13.4-35.0) L 01/06/22 04:16 Reactive Lymphs % (Man) 0 % 01/06/22 04:16 Monocytes % (Manual) 1.0 % (0.0-7.3) 01/06/22 04:16 Eosinophils % (Manual) 0 % (0.0-4.3) 01/06/22 04:16 Basophils % (Manual) 0 % (0.0-1.8) 01/06/22 04:16 Metamyelocytes % 0 % 01/06/22 04:16 Myelocytes % 0 % 01/06/22 04:16 Promyelocytes % 0 % 01/06/22 04:16 Blast Cells % 0 % 01/06/22 04:16 Nucleated RBC % Not Reportable 01/06/22 04:16 Seg Neutrophils # 6.8 K/mm3 (1.8-7.7) 01/05/22 04:57 Seg Neutrophils # Man 9.7 K/mm3 (1.8-7.7) H 01/06/22 04:16 Band Neutrophils # 0.0 K/mm3 01/06/22 04:16 Lymphocytes # (Manual) 0.4 K/mm3 (1.2-5.4) L 01/06/22 04:16 Abs React Lymphs (Man) 0.0 K/mm3 01/06/22 04:16 Monocytes # (Manual) 0.1 K/mm3 (0.0-0.8) 01/06/22 04:16 Eosinophils # (Manual) 0.0 K/mm3 (0.0-0.4) 01/06/22 04:16 Basophils # (Manual) 0.0 K/mm3 (0.0-0.1) 01/06/22 04:16 Metamyelocytes # 0.0 K/mm3 01/06/22 04:16 Myelocytes # 0.0 K/mm3 01/06/22 04:16 Promyelocytes # 0.0 K/mm3 01/06/22 04:16 Blast Cells # 0.0 K/mm3 01/06/22 04:16 WBC Morphology Not Reportable 01/06/22 04:16 Hypersegmented Neuts Not Reportable 01/06/22 04:16 Hyposegmented Neuts Not Reportable 01/06/22 04:16 Hypogranular Neuts Not Reportable 01/06/22 04:16 Smudge Cells Not Reportable 01/06/22 04:16 Toxic Granulation Not Reportable 01/06/22 04:16 Toxic Vacuolation Not Reportable 01/06/22 04:16 Dohle Bodies Not Reportable 01/06/22 04:16 Pelger-Huet Anomaly Not Reportable 01/06/22 04:16 Marina Rods Not Reportable 01/06/22 04:16 Platelet Estimate Consistent w auto 01/06/22 04:16 Clumped Platelets Not Reportable 01/06/22 04:16 Plt Clumps, EDTA Not Reportable 01/06/22 04:16 Large Platelets Not Reportable 01/06/22 04:16 Giant Platelets Not Reportable 01/06/22 04:16 Platelet Satelliting Not Reportable 01/06/22 04:16 Plt Morphology Comment Not Reportable 01/06/22 04:16 RBC Morphology Not Reportable 01/06/22 04:16 Dimorphic RBCs Not Reportable 01/06/22 04:16 Polychromasia Few 01/06/22 04:16 Hypochromasia 1+ 01/06/22 04:16 Poikilocytosis Not Reportable 01/06/22 04:16 Anisocytosis 1+ 01/06/22 04:16 Microcytosis Not Reportable 01/06/22 04:16 Macrocytosis Not Reportable 01/06/22 04:16 Spherocytes Not Reportable 01/06/22 04:16 Pappenheimer Bodies Not Reportable 01/06/22 04:16 Sickle Cells Not Reportable 01/06/22 04:16 Target Cells Not Reportable 01/06/22 04:16 Tear Drop Cells Not Reportable 01/06/22 04:16 Ovalocytes Not Reportable 01/06/22 04:16 Helmet Cells Not Reportable 01/06/22 04:16 [place] Bodies Not Reportable 01/06/22 04:16 Parker Rings Not Reportable 01/06/22 04:16 Deonte Cells Not Reportable 01/06/22 04:16 Bite Cells Not Reportable 01/06/22 04:16 Crenated Cell Not Reportable 01/06/22 04:16 Elliptocytes Not Reportable 01/06/22 04:16 Acanthocytes (Spur) Not Reportable 01/06/22 04:16 Rouleaux Not Reportable 01/06/22 04:16 Hemoglobin C Crystals Not Reportable 01/06/22 04:16 Schistocytes Not Reportable 01/06/22 04:16 Malaria parasites Not Reportable 01/06/22 04:16 Kevin Bodies Not Reportable 01/06/22 04:16 Hem Pathologist Commnt No 01/06/22 04:16 PT 13.1 Sec. (12.2-14.9) 01/05/22 04:57 INR 0.90 (0.87-1.13) 01/05/22 04:57 APTT 24.9 Sec. (24.2-36.6) 01/05/22 04:57 D-Dimer 900.95 ng/mlDDU (0-234) H 01/08/22 05:55 Sodium 143 mmol/L (137-145) 01/09/22 06:25 Potassium 3.5 mmol/L (3.6-5.0) L 01/09/22 06:25 Chloride 106.3 mmol/L (98-107) 01/09/22 06:25 Carbon Dioxide 25 mmol/L (22-30) 01/09/22 06:25 Anion Gap 15 mmol/L 01/09/22 06:25 BUN 22 mg/dL (7-17) H 01/09/22 06:25 Creatinine 0.6 mg/dL (0.6-1.2) 01/08/22 05:55 Estimated GFR > 60 ml/min 01/08/22 05:55 BUN/Creatinine Ratio 38 % 01/08/22 05:55 Glucose 89 mg/dL (65-100) 01/09/22 06:25 POC Glucose 99 mg/dL (70-105) 01/09/22 06:28 Hemoglobin A1c 5.6 % (4-6) 01/06/22 04:16 Lactic Acid 1.90 mmol/L (0.7-2.0) 01/05/22 04:57 Calcium 9.7 mg/dL (8.4-10.2) 01/09/22 06:25 Ferritin 336.7 ng/mL (10.0-200.0) H 01/08/22 05:55 Total Bilirubin 0.30 mg/dL (0.1-1.2) 01/09/22 06:25 Direct Bilirubin < 0.2 mg/dL (0-0.2) 01/05/22 07:14 Indirect Bilirubin 0.0 mg/dL 01/05/22 07:14 AST 13 units/L (5-40) 01/09/22 06:25 ALT 11 units/L (7-56) 01/09/22 06:25 Alkaline Phosphatase 54 units/L (35-129) 01/09/22 06:25 Lactate Dehydrogenase 159 units/L (91-180) 01/08/22 05:55 Total Creatine Kinase 44 units/L (30-135) 01/06/22 10:58 CK-MB (CK-2) 1.5 ng/mL (0.0-4.0) 01/06/22 10:58 CK-MB (CK-2) Rel Index 3.4 (0-4) 01/06/22 10:58 Troponin T 0.070 ng/mL (0.00-0.029) H 01/06/22 04:16 C-Reactive Protein 1.60 mg/dL (0.00-1.30) H 01/06/22 19:42 NT-Pro-B Natriuret Pep 211.1 pg/mL (0-900) 01/05/22 04:57 Total Protein 7.1 g/dL (6.3-8.2) 01/09/22 06:25 Albumin 3.3 g/dL (3.9-5) L 01/09/22 06:25 Albumin/Globulin Ratio 0.9 % 01/09/22 06:25 Triglycerides 132 mg/dL (2-149) 01/05/22 04:57 Cholesterol 113 mg/dL (50-199) 01/05/22 04:57 LDL Cholesterol Direct 54 mg/dL (50-130) 01/05/22 04:57 HDL Cholesterol 36 mg/dL (40-59) L 01/05/22 04:57 Cholesterol/HDL Ratio 3.13 % 01/05/22 04:57 Procalcitonin < 0.05 ng/mL (<0.15) 01/06/22 19:42 Urine Color Yellow (Yellow) 01/05/22 13:18 Urine Turbidity Hazy (Clear) 01/05/22 13:18 Urine pH 8.0 (5.0-7.0) H 01/05/22 13:18 Ur Specific Fitzgerald 1.011 (1.003-1.030) 01/05/22 13:18 Urine Protein <15 mg/dl mg/dL (Negative) 01/05/22 13:18 Urine Glucose (UA) Neg mg/dL (Negative) 01/05/22 13:18 Urine Ketones Neg mg/dL (Negative) 01/05/22 13:18 Urine Blood Neg (Negative) 01/05/22 13:18 Urine Nitrite Neg (Negative) 01/05/22 13:18 Urine Bilirubin Neg (Negative) 01/05/22 13:18 Urine Urobilinogen < 2.0 mg/dL (<2.0) 01/05/22 13:18 Ur Leukocyte Esterase Neg (Negative) 01/05/22 13:18 Urine WBC (Auto) < 1.0 /HPF (0.0-6.0) 01/05/22 13:18 Urine RBC (Auto) < 1.0 /HPF (0.0-6.0) 01/05/22 13:18 Coronavirus (PCR) Positive (Negative) A 01/06/22 08:12 Microbiology: Microbiology 01/05/22 04:57 Peripheral/Venous Blood Culture - Preliminary NO GROWTH AFTER 4 DAYS 01/05/22 04:51 Peripheral/Venous Blood Culture - Preliminary NO GROWTH AFTER 4 DAYS Rosales/IV: Voiding Method External Female Catheter Active Medications - Current Medications Current Medications: Generic Name Dose Route Start Last Admin Trade Name Freq PRN Reason Stop Dose Admin Acetaminophen 650 mg 01/05/22 20:17 01/08/22 16:59 Acetaminophen 325 Mg Tab PO 650 mg Q4H PRN Administration Pain MILD(1-3)/Fever >100.5/FERRARI Albuterol/Ipratropium 1 ampul 01/06/22 14:00 01/08/22 20:18 Ipratropium/Albuterol Sulfate 3 Ml Ampul.Neb IH 1 ampul TIDRT CONNIE Administration Allopurinol 300 mg 01/07/22 10:00 01/08/22 09:25 Allopurinol 300 Mg Tab FEEDTUBE 300 mg DAILY CONNIE Administration Amlodipine Besylate 10 mg 01/07/22 10:00 01/08/22 09:25 Amlodipine 10 Mg Tab FEEDTUBE 10 mg DAILY CONNIE Administration Lipase/Protease/Amylase 1 each 01/06/22 12:04 Lipase 10,500/Protease 25,000/Amylase 43,750 (Units) Dr Collier FEEDTUBE PRN PRN For Clogged Feeding Tube Ascorbic Acid 500 mg 01/06/22 22:00 01/08/22 22:25 Ascorbic Acid 500 Mg Tab PO 500 mg BID CONNIE Administration Aspirin 81 mg 01/07/22 10:00 01/08/22 09:25 Aspirin 81 Mg Tab Chew FEEDTUBE 81 mg QDAY CONNIE Administration Atorvastatin Calcium 10 mg 01/06/22 22:00 01/08/22 22:25 Atorvastatin 10 Mg Tab FEEDTUBE 10 mg QHS CONNIE Administration Cholecalciferol 1,000 unit 01/07/22 10:00 01/08/22 09:25 Cholecalciferol (Vit D3) 1000 Unit (25 Mcg) Tab PO 1,000 unit QDAY CONNIE Administration Dexamethasone 8 mg 01/05/22 21:00 01/08/22 09:25 Dexamethasone 4 Mg/Ml Vial IV 8 mg Q24HR CONNIE Administration Docusate Sodium 100 mg 01/05/22 22:00 01/08/22 22:24 Docusate Sodium 100 Mg/10 Ml Oral Liqd FEEDTUBE 100 mg BID CONNIE Administration Ferrous Sulfate 300 mg 01/07/22 10:00 01/08/22 14:52 Ferrous Sulfate 300 Mg (60mg Elemental Iron) / 5 Ml Oral Liqd FEEDTUBE 300 mg QDAY CONNIE Administration Guaifenesin 10 ml 01/07/22 14:23 Guaifenesin Dm 200/20 Mg Oral Liqd 10 Ml PO Q4H PRN Cough Heparin Sodium (Porcine) 5,000 unit 01/05/22 22:00 01/08/22 22:25 Heparin 5,000 Unit/1 Ml Vial SUB-Q 5,000 unit Q12HR CONNIE Administration Hydralazine HCl 10 mg 01/06/22 00:06 01/06/22 00:55 Hydralazine 20 Mg/1 Ml Inj IV 10 mg Q4H PRN Administration sbp greater than 160 Remdesivir 100 mg/ Sodium 250 mls @ 500 mls/hr 01/07/22 14:00 01/08/22 14:52 Chloride IV 01/10/22 14:29 500 mls/hr Q24HR@1400 CONNIE Administration Insulin Glargine 10 units 01/05/22 22:00 01/08/22 22:27 Insulin Glargine 100 Units/Ml SUB-Q 10 units QHS CONNIE Administration Lacosamide 100 mg 01/05/22 22:00 01/08/22 22:24 Lacosamide 100 Mg Tab PO 100 mg Q12HR CONNIE Administration Lansoprazole 30 mg 01/06/22 10:00 01/08/22 09:25 Lansoprazole 30 Mg Solutab FEEDTUBE 30 mg QDAY CONNIE Administration Levetiracetam 1,000 mg 01/05/22 22:00 01/08/22 22:24 Levetiracetam 500 Mg/5 Ml Oral Liqd FEEDTUBE 1,000 mg BID CONNIE Administration Linagliptin 5 mg 01/06/22 08:00 01/08/22 09:25 Linagliptin 5 Mg Tab PO 5 mg QAMDIAB CONNIE Administration Metoclopramide HCl 5 mg 01/06/22 09:00 01/08/22 10:57 Metoclopramide 10 Mg/2 Ml Inj IV 5 mg Q6H PRN Administration Nausea And Vomiting Metoprolol Tartrate 25 mg 01/07/22 14:00 01/09/22 06:45 Metoprolol Tartrate 25 Mg Tab PO 25 mg Q8HR CONNIE Administration Morphine Sulfate 2 mg 01/05/22 20:21 Morphine 2 Mg/1 Ml Inj IV Q4H PRN Pain, Moderate (4-6) Nitroglycerin 0.2 mg 01/08/22 06:00 01/09/22 06:47 Nitroglycerin 0.2 Mg Patch 24hr TD 0.2 mg QDAY@0600 CONNIE Administration Ondansetron HCl 4 mg 01/05/22 20:17 01/07/22 14:20 Ondansetron 4 Mg/2 Ml Inj IV 4 mg Q8H PRN Administration Nausea And Vomiting Polyethylene Glycol 17 gm 01/09/22 10:00 Polyethylene Glycol 3350 17 Gm Powder PO QDAY CONNIE Potassium Chloride 20 meq 01/05/22 20:15 01/08/22 09:24 Potassium Chloride 20 Meq Packet FEEDTUBE 20 meq QDAY CONNIE Administration Simple Syrup 15 ml 01/06/22 12:04 Simple Syrup 15 Ml FEEDTUBE PRN PRN Hypoglycemia Simple Syrup 30 ml 01/06/22 12:04 Simple Syrup 15 Ml FEEDTUBE PRN PRN Hypoglycemia Sodium Bicarbonate 325 mg 01/06/22 12:04 Sodium Bicarbonate 325 Mg Tab FEEDTUBE PRN PRN For Clogged Feeding Tube Sodium Chloride 10 ml 01/05/22 22:00 01/08/22 22:26 Sodium Chloride 0.9% 10 Ml Flush Syringe IV 10 ml BID CONNIE Administration Sodium Chloride 10 ml 01/05/22 20:17 Sodium Chloride 0.9% 10 Ml Flush Syringe IV PRN PRN LINE FLUSH Sodium Chloride 50 ml 01/07/22 14:00 01/08/22 15:33 Sodium Chloride 0.9% 50 Ml Ivpb IV 01/11/22 14:01 50 ml Q24HR@1400 CONNIE Administration Zinc Sulfate 220 mg 01/06/22 22:00 01/08/22 22:24 Zinc Sulfate 220 Mg Cap PO 220 mg BID CONNIE Administration Nutrition/Malnutrition Assess - Dietary Evaluation Nutrition/Malnutrition Findings: Nutrition Notes Start: 01/06/22 11:50 Freq: Status: Active Protocol: Document 01/08/22 11:46 CARMEN (Rec: 01/08/22 12:01 CARMEN [id number]) Nutrition Notes Initial or Follow up Brief Note Current Diagnosis Diabetes,Sepsis,Hypertension, Respiratory Failure,Stroke, Hyperlipidemia Other Pertinent Diagnosis COVID-19/Pneumonia, Dehydration, NSTEMI, Gout, Seizure, Dementia... Current Diet TF-Glucerna 1.2 Sarbjit @ 55 ml/hr (from D 01/06). Height 5 ft 6 in Weight 72.7 kg [place] Body Weight (kg) 59.09 BMI 25.8 Weight change and time frame 0.13 Kg body weight gain in 2 days reported. Weight Status Appropriate Subjective/Other Information RD consult for routine TF tolerance/continuation assessment. TF continues as prescribed and well tolerated, according to RN notes. RN note on 01/08/22 07:57: pt received resting in bed ,non verbal ,respi even ,non labored ,tube feeding in progress ,peg tube intact ,on 2l 02 via nc ,tele with cont pulse oxy on ,call light in reach ,isolation remain on for covid ,continue to care. Pt is on Nasal Canula, O2 saturation @ 93%, according to Physical Assessment History notes. Percent of energy/protein needs met: Prescribed TF-Glucerna 1.2 Sarbjit @ 55 ml/hr provides for energy/protein needs (1,595 Kcal/80 g) during LOS, 96% Kcal; 100% AA. #1 Nutrition Diagnosis Inadequate oral intake, Swallowing difficulty Diagnosis Progress(for reassessment Continues documentation) Is patient on ventilator? No Is Patient Ambulatory and/or Out of Bed No REE-([facility]-confined to bed) 1439.688 Kcal/Kg value to use for calculation 23 Approximate Energy Requirements Using 1672 kcal/Kg Calculation Used for Recommendations Kcal/kg Additional Notes Protein: 1-1.2 g/Kg ABW; 73-88 g/day. Fluids: 1 ml/Kcal, or as per MD. Nutrition Intervention Nutrition Support: Continue TF-Glucerna 1.2 Sarbjit @ 55 ml/hr. Flush: 100 ml water Q 4 hr, or as per MD. Kcal 1,595 Protein (gm) 80 Carbohydrates (gm) 152 Fat (gm) 80 Fluid (mL) 1,070 Fiber (gm) 21 % RDI: 96% Kcal; 100% AA. Goal #1 Provide at least 75% of energy /protein needs through Enteral Feeding during LOS. Goal #2 Maintain body weight within +/ -3% of admission body weight during LOS. Follow-Up By: 01/14/22 Additional Comments Continue monitoring TF tolerance and BM.
[2022-01-09 07:43] LABS: Red Cell Distribution Width 21.6 % (13.2-15.2)
[2022-01-09 08:00] LABS: BUN/Creatinine Ratio 37
[2022-01-09] MEDS: POLYETHYLENE GLYCOL 3350 17 GM POWDER PO SCH (10:05)
[2022-01-09] MEDS: DOCUSATE SODIUM 100 MG/10 ML ORAL LIQD FEEDTUBE SCH ×2 (10:05→22:10)
[2022-01-09] MEDS: levETIRAcetam 500 MG/5 ML ORAL LIQD FEEDTUBE SCH ×2 (10:05→22:10)
[2022-01-09] MEDS: FERROUS SULFATE 300 MG (60MG Elemental Iron) / 5 mL ORAL LIQD FEEDTUBE SCH (10:05)
[2022-01-09] MEDS: dexAMETHasone 4 MG/ML VIAL IV SCH (10:05)
[2022-01-09] MEDS: ASPIRIN 81 MG TAB CHEW FEEDTUBE SCH (10:05)
[2022-01-09] MEDS: POTASSIUM CHLORIDE 20 MEQ PACKET FEEDTUBE SCH (10:05)
[2022-01-09] MEDS: LINAGLIPTIN 5 MG TAB PO SCH (10:06)
[2022-01-09] MEDS: LACOSAMIDE 100 MG TAB PO SCH ×2 (10:06→22:10)
[2022-01-09] MEDS: allopurinoL 300 MG TAB FEEDTUBE SCH (10:06)
[2022-01-09] MEDS: ZINC SULFATE 220 MG CAP PO SCH ×2 (10:06→22:10)
[2022-01-09] MEDS: amLODIPine 10 MG TAB FEEDTUBE SCH (10:06)
[2022-01-09] MEDS: CHOLECALCIFEROL (VIT D3) 1000 UNIT (25 mcg) TAB PO SCH (10:06)
[2022-01-09] MEDS: LANSOPRAZOLE 30 MG SOLUTAB FEEDTUBE SCH (10:06)
[2022-01-09] MEDS: ASCORBIC ACID 500 MG TAB PO SCH ×2 (10:06→22:10)
[2022-01-09] MEDS: HEPARIN 5,000 UNIT/1 ML VIAL SUB-Q SCH ×2 (10:07→22:11)
--- NOTE | 2022-01-09 10:07 | Progress Note ---
Assessment and Plan - Patient Problems (1) Elevated troponin Current Visit: Yes Status: Acute Subjective Date of service: 01/09/22 Interval history: NONVERBAL,,ALERT Objective Vital Signs Temp Pulse Pulse Resp Resp BP Pulse Ox 01/09/22 06:47 91 H 137/73 01/09/22 06:45 91 H 01/09/22 06:24 98.1 F 91 H 20 137/73 98 01/08/22 22:26 109 H 136/73 01/08/22 22:00 93 01/08/22 21:22 98.3 F 20 136/73 01/08/22 20:18 98 H 24 95 01/08/22 16:31 100.2 F H 102 H 26 H 142/80 95 01/08/22 13:58 124 H 24 01/08/22 11:19 98.9 F 110 H 20 152/81 92 - Physical Examination General: No Apparent Distress HEENT: Positive: PERRL Neck: Positive: neck supple Cardiac: Positive: Reg Rate and Rhythm Lungs: Positive: Rhonchi (MILD) Neuro: Positive: Grossly Intact, Weakness (Generalized lethargy) Abdomen: Positive: Soft, Other (DISTENDED) Skin: Positive: Clear Extremities: Present: normal. Absent: edema - Labs and Meds Cardiac Enzymes 01/09/22 Range/Units 06:25 AST 13 (5-40) units/L CBC 01/09/22 Range/Units 06:25 WBC 13.0 H (4.5-11.0) K/mm3 RBC 2.89 L (3.65-5.03) M/mm3 Hgb 7.6 L (10.1-14.3) gm/dl Hct 23.8 L (30.3-42.9) % Plt Count 303 (140-440) K/mm3 Comprehensive Metabolic Panel 01/09/22 Range/Units 06:25 Sodium 143 (137-145) mmol/L Potassium 3.5 L (3.6-5.0) mmol/L Chloride 106.3 (98-107) mmol/L Carbon Dioxide 25 (22-30) mmol/L BUN 22 H (7-17) mg/dL Creatinine 0.6 (0.6-1.2) mg/dL Glucose 89 (65-100) mg/dL Calcium 9.7 (8.4-10.2) mg/dL AST 13 (5-40) units/L ALT 11 (7-56) units/L Alkaline Phosphatase 54 (35-129) units/L Total Protein 7.1 (6.3-8.2) g/dL Albumin 3.3 L (3.9-5) g/dL - Imaging and Cardiology EKG: report reviewed (Sinus rhythm no acute ST-T wave changes)
[2022-01-09] MEDS: IPRATROPIUM/ALBUTEROL SULFATE 3 ML AMPUL.NEB IH SCH ×3 (11:07→21:01)
[2022-01-09] MEDS: SODIUM CHLORIDE 0.9% 50 ML IVPB IV SCH (14:46)
[2022-01-09] MEDS: REMDESIVIR 100 MG in SODIUM CHLORIDE 0.9% 250ML 250 ML IV SCH (14:46)
[2022-01-09] MEDS: INSULIN GLARGINE 100 UNITS/ML SUB-Q SCH (22:14)
[2022-01-10] MEDS: METOPROLOL TARTRATE 25 MG TAB PO SCH ×3 (06:40→21:24)
[2022-01-10] MEDS: NITROGLYCERIN 0.2 MG PATCH 24HR TD SCH (06:40)
[2022-01-10 07:02] LABS: Hematocrit 24.3 % (30.3-42.9); Hemoglobin 7.9 gm/dl (10.1-14.3); Mean Corpuscular HGB Conc 33 % (30-34); Mean Corpuscular Volume 82 fl (79-97); Platelet Count 300 K/mm3 (140-440); Red Blood Count 2.94 M/mm3 (3.65-5.03)
[2022-01-10 07:03] LABS: Red Cell Distribution Width 21.3 % (13.2-15.2)
[2022-01-10 07:20] LABS: Blood Urea Nitrogen 22 mg/dL (7-17); Calcium 9.4 mg/dL (8.4-10.2); Hemolysis Index 2
[2022-01-10 07:25] LABS: BUN/Creatinine Ratio 37
[2022-01-10] MEDS ORDERED: POTASSIUM CHLORIDE ER 20 MEQ TAB PO NR (07:29)
[2022-01-10] MEDS ORDERED: MINERAL OIL ENEMA 133 ML PR NR (07:30)
--- NOTE | 2022-01-10 10:24 | Progress Note ---
Assessment and Plan Cultures: 01/05/2022 blood culture: No growth 01/06/2022 COVID-19 PCR: Positive A/P: 86-year-old female past medical history dementia, seizures, GERD, [facility] resident admitted with: #Severe COVID-19 pneumonia: Patient presented with a week of symptoms, chest x- ray with diffuse bilateral infiltrates. D-dimer 900, CRP 1.6, ferritin 336, procalcitonin 0.05, LDH 159. #Acute hypoxemic respiratory failure: Likely secondary to COVID-19 infection. Currently on 2L NC. DVT scan, CTA chest negative for VTE. #Elevated troponins/NSTEMI: Cardiology following. Recommendations: -Complete 10 days of Decadron -Continue remdesivir, complete total 5 days -Procalcitonin is low, antibiotics not needed -Anticoagulation per protocol based on D-dimer Joe Terry MD, FACP, [facility] ([facility] O: [phone] F: [phone] C: [phone] Subjective Date of service: 01/10/22 Interval history: Afebrile. Remains on nasal cannula at 2 L/min. D-dimer 900, CRP 1.6, ferritin 336, procalcitonin 0.05, LDH 159. Objective - Exam Narrative Exam: Physical Exam (reviewed in chart to minimize risk of transmission) Constitutional: deferred Head, Ears, Nose: deferred Eyes: deferred Neck: deferred Oral: deferred Cardiovascular: deferred Respiratory: deferred GI: deferred Musculoskeletal: deferred Skin: deferred Hem/Lymphatic: deferred Psych: deferred Neurological: deferred - Constitutional Vitals: Vital Signs Temp Pulse Resp BP Pulse Ox 98.1 F 86 18 134/67 99 01/10/22 04:49 01/10/22 06:40 01/10/22 04:49 01/10/22 06:40 01/10/22 10:00 Temperature -Last 24 Hours Temperature 98.1 F Temperature 97.5 F Temperature 98.1 F Temperature 98.2 F - Labs CBC & Chem 7: 01/10/22 06:27 01/10/22 06:27 Labs: Abnormal lab results 01/09/22 01/09/22 01/10/22 Range/Units 11:42 17:44 00:07 RBC (3.65-5.03) M/mm3 Hgb (10.1-14.3) gm/dl Hct (30.3-42.9) % MCH (28-32) pg RDW (13.2-15.2) % Potassium (3.6-5.0) mmol/L BUN (7-17) mg/dL Glucose (65-100) mg/dL POC Glucose 127 H 169 H 139 H (70-105) mg/dL 01/10/22 01/10/22 01/10/22 Range/Units 06:27 06:27 06:51 RBC 2.94 L (3.65-5.03) M/mm3 Hgb 7.9 L (10.1-14.3) gm/dl Hct 24.3 L (30.3-42.9) % MCH 27 L (28-32) pg RDW 21.3 H (13.2-15.2) % Potassium 3.3 L (3.6-5.0) mmol/L BUN 22 H (7-17) mg/dL Glucose 130 H (65-100) mg/dL POC Glucose 127 H (70-105) mg/dL
[2022-01-10] MEDS: POLYETHYLENE GLYCOL 3350 17 GM POWDER PO SCH (10:26)
[2022-01-10] MEDS: FERROUS SULFATE 300 MG (60MG Elemental Iron) / 5 mL ORAL LIQD FEEDTUBE SCH (10:27)
[2022-01-10] MEDS: levETIRAcetam 500 MG/5 ML ORAL LIQD FEEDTUBE SCH ×2 (10:27→21:24)
[2022-01-10] MEDS: LACOSAMIDE 100 MG TAB PO SCH ×2 (10:27→21:24)
[2022-01-10] MEDS: HEPARIN 5,000 UNIT/1 ML VIAL SUB-Q SCH ×2 (10:27→21:25)
[2022-01-10] MEDS: DOCUSATE SODIUM 100 MG/10 ML ORAL LIQD FEEDTUBE SCH ×2 (10:27→21:25)
[2022-01-10] MEDS: POTASSIUM CHLORIDE 20 MEQ PACKET FEEDTUBE SCH (10:27)
[2022-01-10] MEDS: amLODIPine 10 MG TAB FEEDTUBE SCH (10:28)
[2022-01-10] MEDS: CHOLECALCIFEROL (VIT D3) 1000 UNIT (25 mcg) TAB PO SCH (10:28)
[2022-01-10] MEDS: LANSOPRAZOLE 30 MG SOLUTAB FEEDTUBE SCH (10:28)
[2022-01-10] MEDS: allopurinoL 300 MG TAB FEEDTUBE SCH (10:28)
[2022-01-10] MEDS: ASCORBIC ACID 500 MG TAB PO SCH ×2 (10:28→21:24)
[2022-01-10] MEDS: ASPIRIN 81 MG TAB CHEW FEEDTUBE SCH (10:28)
[2022-01-10] MEDS: ZINC SULFATE 220 MG CAP PO SCH ×2 (10:29→21:25)
[2022-01-10] MEDS: dexAMETHasone 4 MG/ML VIAL IV SCH (10:29)
[2022-01-10] MEDS: LINAGLIPTIN 5 MG TAB PO SCH (10:30)
--- NOTE | 2022-01-10 10:43 | Progress Note ---
Assessment and Plan - Patient Problems (1) Respiratory insufficiency Current Visit: Yes Status: Acute Plan to address problem: 86-year-old longterm patient, who is frail, cachectic, chronically ill- appearing and noncommunicative with advanced dementia. Admitted with cough, congestion, oxygen desaturation, abnormal chest x-ray and COVID-positive pneumonia. EKG on her ER presentation showed abnormal changes of diffuse J- point elevation, of uncertain significance. Admitting EKG was apparently not immediately communicated to cardiology service. Patient presumably has coronary artery disease but is not a candidate for aggressive and invasive cardiac evaluation and therapies. We will continue empiric nitrates, beta-blockers and follow-up serial EKGs. Subjective Date of service: 01/10/22 Principal diagnosis: COVID-positive pneumonia Interval history: Patient is breathing comfortably on bedrest, no acute distress. No new cardiac events reported. Objective Vital Signs Temp Pulse Pulse Resp Resp BP Pulse Ox 01/10/22 10:28 72 123/68 01/10/22 10:00 99 01/10/22 07:47 96 01/10/22 06:40 86 134/67 01/10/22 04:49 98.1 F 86 18 134/67 99 01/09/22 22:10 99 H 136/77 01/09/22 22:00 98 01/09/22 21:19 97.5 F L 99 H 16 136/77 98 01/09/22 21:08 95 01/09/22 20:00 91 H 16 01/09/22 17:15 98 01/09/22 17:06 90 18 01/09/22 16:01 98.1 F 87 18 125/77 98 01/09/22 11:01 98.2 F 93 H 22 147/78 97 01/09/22 11:00 86 14 - Physical Examination General: No Apparent Distress, Cachectic HEENT: Positive: PERRL Neck: Positive: neck supple Cardiac: Positive: Reg Rate and Rhythm Lungs: Positive: Decreased Breath Sounds Neuro: Positive: Grossly Intact, Weakness (Generalized lethargy) Abdomen: Positive: Soft, Other (DISTENDED) Skin: Positive: Clear Extremities: Present: normal. Absent: edema - Labs and Meds CBC 01/10/22 Range/Units 06:27 WBC 9.7 (4.5-11.0) K/mm3 RBC 2.94 L (3.65-5.03) M/mm3 Hgb 7.9 L (10.1-14.3) gm/dl Hct 24.3 L (30.3-42.9) % Plt Count 300 (140-440) K/mm3 Comprehensive Metabolic Panel 01/10/22 Range/Units 06:27 Sodium 138 (137-145) mmol/L Potassium 3.3 L (3.6-5.0) mmol/L Chloride 104.1 (98-107) mmol/L Carbon Dioxide 25 (22-30) mmol/L BUN 22 H (7-17) mg/dL Creatinine 0.6 (0.6-1.2) mg/dL Glucose 130 H (65-100) mg/dL Calcium 9.4 (8.4-10.2) mg/dL - Imaging and Cardiology EKG: report reviewed (Sinus rhythm no acute ST-T wave changes)
--- NOTE | 2022-01-10 11:22 | Progress Note ---
Assessment and Plan Assessment and plan: #COVID-19 infection/Pneumonia #Bilateral pneumonia community-acquired #Acute hypoxic respiratory failure -COVID-19 PCR positive -titrate O2 sats to be greater than 90%; currently on 2LNC will wean as tolerated -continue ceftriaxone and azithromycin for now, if procalcitonin low will discontinue -continue dexamethasone x 10 days (day 5 of 10) -continue remedsivir (dose 5 of 5) -continue contact precautions -d-dimer 900.9 (839.18); LDH 159; ferritin 336.7 #Sepsis secondary to [id number] -WBC count elevated, tachycardia; afebrile -CTA chest negative for PE, BLE duplex negative for DVT -continue care as above #Dehydration -continue IVFs, likely secondary to above #Severe constipation -continue miralax -will order enema x1 -tube feeds held for now -if no improvement may need manual disimpaction #Elevated troponin/non-ST elevation VA -CKMB wnl -mild troponin elevation, has plateaued -Cardiology following, assistance appreciated #Elevated D-dimers Accu-Chek, sliding scale coverage, ADA diet, insulin as needed Check hemoglobin A1c Adjust insulin as necessary #Insulin dependent diabetes mellitus, controlled -HgbA1c 5.6% -patient prescribed lantus 10Uqhs, tradjenta outpatient -continue carbohydrate consistent tube feeds -SSI with accuchecks while inpatient with lantus at home dose #Hyperlipidemia -continue statin #History of seizure disorder -seizure precautions -continue Vimpat and Keppra #History of gout -continue allopurinol for prevention of gout #History of dementia -stable #DVT/GI prophylaxis On anticoagulation and GI prophylaxis #Discharge planning -once clinically stable, patient will be discharged back to [facility] History Interval history: No acute events overnight per nursing. Patient appears to be comfortable on 2LNC. Spontaneously opens and closes her eyes to verbal stimuli. Hospitalist Physical - Physical exam Narrative exam: GENERAL: Well-developed well-nourished. In no acute distress. HEENT: NC @2LPM CHEST/LUNGS: Coarse breath sounds bilaterally. HEART/CARDIOVASCULAR: RRR. No murmur, rubs or gallops appreciated. ABDOMEN: +Peg tube. +BS. NT/ND. NEURO: Patient does not follow commands. EXTREMITIES: No cyanosis, clubbing or edema. PSYCH: Unable to assess. Patient mute and nonverbal at baseline. - Constitutional Vitals: Temp Pulse Resp BP Pulse Ox 98.1 F 72 18 123/68 99 01/10/22 04:49 01/10/22 10:28 01/10/22 04:49 01/10/22 10:28 01/10/22 10:00 General appearance: Present: mild distress, well-nourished, other (Noncommunicative) HEART Score - HEART Score Age: > 65 Risk factors: > 3 risk factors or hx of atherosclerotic disease Troponin: Troponin T 0.070 ng/mL (0.00-0.029) H 01/06/22 04:16 Troponin: 1-3x normal limit - Critical Actions Critical Actions: 4-6 pts:12-16.6% risk of adverse cardiac event. Should be admitted Results - Labs CBC & Chem 7: 01/10/22 06:27 01/10/22 06:27 Labs: Laboratory Last Values WBC 9.7 K/mm3 (4.5-11.0) 01/10/22 06:27 RBC 2.94 M/mm3 (3.65-5.03) L 01/10/22 06:27 Hgb 7.9 gm/dl (10.1-14.3) L 01/10/22 06:27 Hct 24.3 % (30.3-42.9) L 01/10/22 06:27 MCV 82 fl (79-97) 01/10/22 06:27 MCH 27 pg (28-32) L 01/10/22 06:27 MCHC 33 % (30-34) 01/10/22 06:27 RDW 21.3 % (13.2-15.2) H 01/10/22 06:27 Plt Count 300 K/mm3 (140-440) 01/10/22 06:27 Lymph % (Auto) 18.5 % (13.4-35.0) 01/05/22 04:57 Porter % (Auto) 5.5 % (0.0-7.3) 01/05/22 04:57 Eos % (Auto) 2.2 % (0.0-4.3) 01/05/22 04:57 Baso % (Auto) 0.4 % (0.0-1.8) 01/05/22 04:57 Lymph # (Auto) 1.7 K/mm3 (1.2-5.4) 01/05/22 04:57 Porter # (Auto) 0.5 K/mm3 (0.0-0.8) 01/05/22 04:57 Eos # (Auto) 0.2 K/mm3 (0.0-0.4) 01/05/22 04:57 Baso # (Auto) 0.0 K/mm3 (0.0-0.1) 01/05/22 04:57 Add Manual Diff Complete 01/06/22 04:16 Total Counted 100 01/06/22 04:16 Seg Neutrophils % Bushing Press Operator 01/06/22 04:16 Seg Neuts % (Manual) 95.0 % (40.0-70.0) H 01/06/22 04:16 Band Neutrophils % 0 % 01/06/22 04:16 Lymphocytes % (Manual) 4.0 % (13.4-35.0) L 01/06/22 04:16 Reactive Lymphs % (Man) 0 % 01/06/22 04:16 Monocytes % (Manual) 1.0 % (0.0-7.3) 01/06/22 04:16 Eosinophils % (Manual) 0 % (0.0-4.3) 01/06/22 04:16 Basophils % (Manual) 0 % (0.0-1.8) 01/06/22 04:16 Metamyelocytes % 0 % 01/06/22 04:16 Myelocytes % 0 % 01/06/22 04:16 Promyelocytes % 0 % 01/06/22 04:16 Blast Cells % 0 % 01/06/22 04:16 Nucleated RBC % Not Reportable 01/06/22 04:16 Seg Neutrophils # 6.8 K/mm3 (1.8-7.7) 01/05/22 04:57 Seg Neutrophils # Man 9.7 K/mm3 (1.8-7.7) H 01/06/22 04:16 Band Neutrophils # 0.0 K/mm3 01/06/22 04:16 Lymphocytes # (Manual) 0.4 K/mm3 (1.2-5.4) L 01/06/22 04:16 Abs React Lymphs (Man) 0.0 K/mm3 01/06/22 04:16 Monocytes # (Manual) 0.1 K/mm3 (0.0-0.8) 01/06/22 04:16 Eosinophils # (Manual) 0.0 K/mm3 (0.0-0.4) 01/06/22 04:16 Basophils # (Manual) 0.0 K/mm3 (0.0-0.1) 01/06/22 04:16 Metamyelocytes # 0.0 K/mm3 01/06/22 04:16 Myelocytes # 0.0 K/mm3 01/06/22 04:16 Promyelocytes # 0.0 K/mm3 01/06/22 04:16 Blast Cells # 0.0 K/mm3 01/06/22 04:16 WBC Morphology Not Reportable 01/06/22 04:16 Hypersegmented Neuts Not Reportable 01/06/22 04:16 Hyposegmented Neuts Not Reportable 01/06/22 04:16 Hypogranular Neuts Not Reportable 01/06/22 04:16 Smudge Cells Not Reportable 01/06/22 04:16 Toxic Granulation Not Reportable 01/06/22 04:16 Toxic Vacuolation Not Reportable 01/06/22 04:16 Dohle Bodies Not Reportable 01/06/22 04:16 Pelger-Huet Anomaly Not Reportable 01/06/22 04:16 Marina Rods Not Reportable 01/06/22 04:16 Platelet Estimate Consistent w auto 01/06/22 04:16 Clumped Platelets Not Reportable 01/06/22 04:16 Plt Clumps, EDTA Not Reportable 01/06/22 04:16 Large Platelets Not Reportable 01/06/22 04:16 Giant Platelets Not Reportable 01/06/22 04:16 Platelet Satelliting Not Reportable 01/06/22 04:16 Plt Morphology Comment Not Reportable 01/06/22 04:16 RBC Morphology Not Reportable 01/06/22 04:16 Dimorphic RBCs Not Reportable 01/06/22 04:16 Polychromasia Few 01/06/22 04:16 Hypochromasia 1+ 01/06/22 04:16 Poikilocytosis Not Reportable 01/06/22 04:16 Anisocytosis 1+ 01/06/22 04:16 Microcytosis Not Reportable 01/06/22 04:16 Macrocytosis Not Reportable 01/06/22 04:16 Spherocytes Not Reportable 01/06/22 04:16 Pappenheimer Bodies Not Reportable 01/06/22 04:16 Sickle Cells Not Reportable 01/06/22 04:16 Target Cells Not Reportable 01/06/22 04:16 Tear Drop Cells Not Reportable 01/06/22 04:16 Ovalocytes Not Reportable 01/06/22 04:16 Helmet Cells Not Reportable 01/06/22 04:16 [place] Bodies Not Reportable 01/06/22 04:16 [place] Rings Not Reportable 01/06/22 04:16 Deonte Cells Not Reportable 01/06/22 04:16 Bite Cells Not Reportable 01/06/22 04:16 Crenated Cell Not Reportable 01/06/22 04:16 Elliptocytes Not Reportable 01/06/22 04:16 Acanthocytes (Spur) Not Reportable 01/06/22 04:16 Rouleaux Not Reportable 01/06/22 04:16 Hemoglobin C Crystals Not Reportable 01/06/22 04:16 Schistocytes Not Reportable 01/06/22 04:16 Malaria parasites Not Reportable 01/06/22 04:16 Kevin Bodies Not Reportable 01/06/22 04:16 Hem Pathologist Commnt No 01/06/22 04:16 PT 13.1 Sec. (12.2-14.9) 01/05/22 04:57 INR 0.90 (0.87-1.13) 01/05/22 04:57 APTT 24.9 Sec. (24.2-36.6) 01/05/22 04:57 D-Dimer 900.95 ng/mlDDU (0-234) H 01/08/22 05:55 Sodium 138 mmol/L (137-145) 01/10/22 06:27 Potassium 3.3 mmol/L (3.6-5.0) L 01/10/22 06:27 Chloride 104.1 mmol/L (98-107) 01/10/22 06:27 Carbon Dioxide 25 mmol/L (22-30) 01/10/22 06:27 Anion Gap 12 mmol/L 01/10/22 06:27 BUN 22 mg/dL (7-17) H 01/10/22 06:27 Creatinine 0.6 mg/dL (0.6-1.2) 01/10/22 06:27 Estimated GFR > 60 ml/min 01/10/22 06:27 BUN/Creatinine Ratio 37 % 01/10/22 06:27 Glucose 130 mg/dL (65-100) H 01/10/22 06:27 POC Glucose 127 mg/dL (70-105) H 01/10/22 06:51 Hemoglobin A1c 5.6 % (4-6) 01/06/22 04:16 Lactic Acid 1.90 mmol/L (0.7-2.0) 01/05/22 04:57 Calcium 9.4 mg/dL (8.4-10.2) 01/10/22 06:27 Ferritin 336.7 ng/mL (10.0-200.0) H 01/08/22 05:55 Total Bilirubin 0.30 mg/dL (0.1-1.2) 01/09/22 06:25 Direct Bilirubin < 0.2 mg/dL (0-0.2) 01/05/22 07:14 Indirect Bilirubin 0.0 mg/dL 01/05/22 07:14 AST 13 units/L (5-40) 01/09/22 06:25 ALT 11 units/L (7-56) 01/09/22 06:25 Alkaline Phosphatase 54 units/L (35-129) 01/09/22 06:25 Lactate Dehydrogenase 159 units/L (91-180) 01/08/22 05:55 Total Creatine Kinase 44 units/L (30-135) 01/06/22 10:58 CK-MB (CK-2) 1.5 ng/mL (0.0-4.0) 01/06/22 10:58 CK-MB (CK-2) Rel Index 3.4 (0-4) 01/06/22 10:58 Troponin T 0.070 ng/mL (0.00-0.029) H 01/06/22 04:16 C-Reactive Protein 1.60 mg/dL (0.00-1.30) H 01/06/22 19:42 NT-Pro-B Natriuret Pep 211.1 pg/mL (0-900) 01/05/22 04:57 Total Protein 7.1 g/dL (6.3-8.2) 01/09/22 06:25 Albumin 3.3 g/dL (3.9-5) L 01/09/22 06:25 Albumin/Globulin Ratio 0.9 % 01/09/22 06:25 Triglycerides 132 mg/dL (2-149) 01/05/22 04:57 Cholesterol 113 mg/dL (50-199) 01/05/22 04:57 LDL Cholesterol Direct 54 mg/dL (50-130) 01/05/22 04:57 HDL Cholesterol 36 mg/dL (40-59) L 01/05/22 04:57 Cholesterol/HDL Ratio 3.13 % 01/05/22 04:57 Procalcitonin < 0.05 ng/mL (<0.15) 01/06/22 19:42 Urine Color Yellow (Yellow) 01/05/22 13:18 Urine Turbidity Hazy (Clear) 01/05/22 13:18 Urine pH 8.0 (5.0-7.0) H 01/05/22 13:18 Ur Specific [place] 1.011 (1.003-1.030) 01/05/22 13:18 Urine Protein <15 mg/dl mg/dL (Negative) 01/05/22 13:18 Urine Glucose (UA) Neg mg/dL (Negative) 01/05/22 13:18 Urine Ketones Neg mg/dL (Negative) 01/05/22 13:18 Urine Blood Neg (Negative) 01/05/22 13:18 Urine Nitrite Neg (Negative) 01/05/22 13:18 Urine Bilirubin Neg (Negative) 01/05/22 13:18 Urine Urobilinogen < 2.0 mg/dL (<2.0) 01/05/22 13:18 Ur Leukocyte Esterase Neg (Negative) 01/05/22 13:18 Urine WBC (Auto) < 1.0 /HPF (0.0-6.0) 01/05/22 13:18 Urine RBC (Auto) < 1.0 /HPF (0.0-6.0) 01/05/22 13:18 Coronavirus (PCR) Positive (Negative) A 01/06/22 08:12 Microbiology: Microbiology 01/05/22 04:51 Peripheral/Venous Blood Culture - Final NO GROWTH AFTER 5 DAYS 01/05/22 04:57 Peripheral/Venous Blood Culture - Final NO GROWTH AFTER 5 DAYS Rosales/IV: Voiding Method External Female Catheter Active Medications - Current Medications Current Medications: Generic Name Dose Route Start Last Admin Trade Name Freq PRN Reason Stop Dose Admin Acetaminophen 650 mg 01/05/22 20:17 01/08/22 16:59 Acetaminophen 325 Mg Tab PO 650 mg Q4H PRN Administration Pain MILD(1-3)/Fever >100.5/FERRARI Allopurinol 300 mg 01/07/22 10:00 01/10/22 10:28 Allopurinol 300 Mg Tab FEEDTUBE 300 mg DAILY CONNIE Administration Amlodipine Besylate 10 mg 01/07/22 10:00 01/10/22 10:28 Amlodipine 10 Mg Tab FEEDTUBE 10 mg DAILY CONNIE Administration Lipase/Protease/Amylase 1 each 01/06/22 12:04 Lipase 10,500/Protease 25,000/Amylase 43,750 (Units) Dr Nando FEEDTUBE PRN PRN For Clogged Feeding Tube Ascorbic Acid 500 mg 01/06/22 22:00 01/10/22 10:28 Ascorbic Acid 500 Mg Tab PO 500 mg BID CONNIE Administration Aspirin 81 mg 01/07/22 10:00 01/10/22 10:28 Aspirin 81 Mg Tab Chew FEEDTUBE 81 mg QDAY CONNIE Administration Atorvastatin Calcium 10 mg 01/06/22 22:00 01/09/22 22:10 Atorvastatin 10 Mg Tab FEEDTUBE 10 mg QHS CONNIE Administration Cholecalciferol 1,000 unit 01/07/22 10:00 01/10/22 10:28 Cholecalciferol (Vit D3) 1000 Unit (25 Mcg) Tab PO 1,000 unit QDAY CONNIE Administration Dexamethasone 6 mg 01/10/22 10:00 01/10/22 10:29 Dexamethasone 4 Mg/Ml Vial IV 01/14/22 10:59 6 mg Q24HR CONNIE Administration Docusate Sodium 100 mg 01/05/22 22:00 01/10/22 10:27 Docusate Sodium 100 Mg/10 Ml Oral Liqd FEEDTUBE 100 mg BID CONNIE Administration Ferrous Sulfate 300 mg 01/07/22 10:00 01/10/22 10:27 Ferrous Sulfate 300 Mg (60mg Elemental Iron) / 5 Ml Oral Liqd FEEDTUBE 300 mg QDAY CONNIE Administration Guaifenesin 10 ml 01/07/22 14:23 Guaifenesin Dm 200/20 Mg Oral Liqd 10 Ml PO Q4H PRN Cough Heparin Sodium (Porcine) 5,000 unit 01/05/22 22:00 01/10/22 10:27 Heparin 5,000 Unit/1 Ml Vial SUB-Q 5,000 unit Q12HR CONNIE Administration Hydralazine HCl 10 mg 01/06/22 00:06 01/06/22 00:55 Hydralazine 20 Mg/1 Ml Inj IV 10 mg Q4H PRN Administration sbp greater than 160 Remdesivir 100 mg/ Sodium 250 mls @ 500 mls/hr 01/07/22 14:00 01/09/22 14:46 Chloride IV 01/10/22 14:29 500 mls/hr Q24HR@1400 CONNIE Administration Insulin Glargine 10 units 01/05/22 22:00 01/09/22 22:14 Insulin Glargine 100 Units/Ml SUB-Q 10 units QHS CONNIE Administration Lacosamide 100 mg 01/05/22 22:00 01/10/22 10:27 Lacosamide 100 Mg Tab PO 100 mg Q12HR CONNIE Administration Lansoprazole 30 mg 01/06/22 10:00 01/10/22 10:28 Lansoprazole 30 Mg Solutab FEEDTUBE 30 mg QDAY CONNIE Administration Levetiracetam 1,000 mg 01/05/22 22:00 01/10/22 10:27 Levetiracetam 500 Mg/5 Ml Oral Liqd FEEDTUBE 1,000 mg BID CONNIE Administration Linagliptin 5 mg 01/06/22 08:00 01/10/22 10:30 Linagliptin 5 Mg Tab PO 5 mg QAMDIAB CONNIE Administration Metoclopramide HCl 5 mg 01/06/22 09:00 01/08/22 10:57 Metoclopramide 10 Mg/2 Ml Inj IV 5 mg Q6H PRN Administration Nausea And Vomiting Metoprolol Tartrate 25 mg 01/07/22 14:00 01/10/22 06:40 Metoprolol Tartrate 25 Mg Tab PO 25 mg Q8HR CONNIE Administration Morphine Sulfate 2 mg 01/05/22 20:21 Morphine 2 Mg/1 Ml Inj IV Q4H PRN Pain, Moderate (4-6) Nitroglycerin 0.2 mg 01/08/22 06:00 01/10/22 06:40 Nitroglycerin 0.2 Mg Patch 24hr TD 0.2 mg QDAY@0600 CONNIE Administration Ondansetron HCl 4 mg 01/05/22 20:17 01/07/22 14:20 Ondansetron 4 Mg/2 Ml Inj IV 4 mg Q8H PRN Administration Nausea And Vomiting Polyethylene Glycol 17 gm 01/09/22 10:00 01/10/22 10:26 Polyethylene Glycol 3350 17 Gm Powder PO 17 gm QDAY CONNIE Administration Potassium Chloride 20 meq 01/05/22 20:15 01/10/22 10:27 Potassium Chloride 20 Meq Packet FEEDTUBE 20 meq QDAY CONNIE Administration Potassium Chloride 40 meq 01/10/22 07:29 01/10/22 10:26 Potassium Chloride Er 20 Meq Tab PO 01/10/22 12:00 40 meq ONCE NR Administration Simple Syrup 15 ml 01/06/22 12:04 Simple Syrup 15 Ml FEEDTUBE PRN PRN Hypoglycemia Simple Syrup 30 ml 01/06/22 12:04 Simple Syrup 15 Ml FEEDTUBE PRN PRN Hypoglycemia Sodium Bicarbonate 325 mg 01/06/22 12:04 Sodium Bicarbonate 325 Mg Tab FEEDTUBE PRN PRN For Clogged Feeding Tube Sodium Chloride 10 ml 01/05/22 22:00 01/10/22 10:27 Sodium Chloride 0.9% 10 Ml Flush Syringe IV 10 ml BID CONNIE Administration Sodium Chloride 10 ml 01/05/22 20:17 Sodium Chloride 0.9% 10 Ml Flush Syringe IV PRN PRN LINE FLUSH Sodium Chloride 50 ml 01/07/22 14:00 01/09/22 14:46 Sodium Chloride 0.9% 50 Ml Ivpb IV 01/10/22 16:00 50 ml Q24HR@1400 CONNIE Administration Zinc Sulfate 220 mg 01/06/22 22:00 01/10/22 10:29 Zinc Sulfate 220 Mg Cap PO 220 mg BID CONNIE Administration Nutrition/Malnutrition Assess - Dietary Evaluation Nutrition/Malnutrition Findings: Nutrition Notes Start: 01/06/22 11:50 Freq: Status: Active Protocol: Document 01/08/22 11:46 CARMEN (Rec: 01/08/22 12:01 CARMEN [id number]) Nutrition Notes Initial or Follow up Brief Note Current Diagnosis Diabetes,Sepsis,Hypertension, Respiratory Failure,Stroke, Hyperlipidemia Other Pertinent Diagnosis COVID-19/Pneumonia, Dehydration, NSTEMI, Gout, Seizure, Dementia... Current Diet TF-Glucerna 1.2 Sarbjit @ 55 ml/hr (from D 01/06). Height 5 ft 6 in Weight 72.7 kg [place] Body Weight (kg) 59.09 BMI 25.8 Weight change and time frame 0.13 Kg body weight gain in 2 days reported. Weight Status Appropriate Subjective/Other Information RD consult for routine TF tolerance/continuation assessment. TF continues as prescribed and well tolerated, according to RN notes. RN note on 01/08/22 07:57: pt received resting in bed ,non verbal ,respi even ,non labored ,tube feeding in progress ,peg tube intact ,on 2l 02 via nc ,tele with cont pulse oxy on ,call light in reach ,isolation remain on for covid ,continue to care. Pt is on Nasal Canula, O2 saturation @ 93%, according to Physical Assessment History notes. Percent of energy/protein needs met: Prescribed TF-Glucerna 1.2 Sarbjit @ 55 ml/hr provides for energy/protein needs (1,595 Kcal/80 g) during LOS, 96% Kcal; 100% AA. #1 Nutrition Diagnosis Inadequate oral intake, Swallowing difficulty Diagnosis Progress(for reassessment Continues documentation) Is patient on ventilator? No Is Patient Ambulatory and/or Out of Bed No REE-([facility]-confined to bed) 1439.688 Kcal/Kg value to use for calculation 23 Approximate Energy Requirements Using 1672 kcal/Kg Calculation Used for Recommendations Kcal/kg Additional Notes Protein: 1-1.2 g/Kg ABW; 73-88 g/day. Fluids: 1 ml/Kcal, or as per MD. Nutrition Intervention Nutrition Support: Continue TF-Glucerna 1.2 Sarbjit @ 55 ml/hr. Flush: 100 ml water Q 4 hr, or as per MD. Kcal 1,595 Protein (gm) 80 Carbohydrates (gm) 152 Fat (gm) 80 Fluid (mL) 1,070 Fiber (gm) 21 % RDI: 96% Kcal; 100% AA. Goal #1 Provide at least 75% of energy /protein needs through Enteral Feeding during LOS. Goal #2 Maintain body weight within +/ -3% of admission body weight during LOS. Follow-Up By: 01/14/22 Additional Comments Continue monitoring TF tolerance and BM.
[2022-01-10] MEDS: REMDESIVIR 100 MG in SODIUM CHLORIDE 0.9% 250ML 250 ML IV SCH (14:14)
[2022-01-10] MEDS: SODIUM CHLORIDE 0.9% 50 ML IVPB IV SCH (14:14)
[2022-01-10] MEDS: INSULIN GLARGINE 100 UNITS/ML SUB-Q SCH (22:12)
[2022-01-11] MEDS: METOPROLOL TARTRATE 25 MG TAB PO SCH ×2 (06:10→14:10)
[2022-01-11] MEDS: NITROGLYCERIN 0.2 MG PATCH 24HR TD SCH (06:13)
[2022-01-11 06:30] LABS: Blood Urea Nitrogen 24 mg/dL (7-17); Calcium 9.7 mg/dL (8.4-10.2); Hemolysis Index 2
[2022-01-11 06:34] LABS: BUN/Creatinine Ratio 40
[2022-01-11] MEDS: POLYETHYLENE GLYCOL 3350 17 GM POWDER PO SCH (09:19)
[2022-01-11] MEDS: FERROUS SULFATE 300 MG (60MG Elemental Iron) / 5 mL ORAL LIQD FEEDTUBE SCH (09:19)
[2022-01-11] MEDS: levETIRAcetam 500 MG/5 ML ORAL LIQD FEEDTUBE SCH (09:19)
[2022-01-11] MEDS: DOCUSATE SODIUM 100 MG/10 ML ORAL LIQD FEEDTUBE SCH (09:19)
[2022-01-11] MEDS: POTASSIUM CHLORIDE 20 MEQ PACKET FEEDTUBE SCH (09:20)
[2022-01-11] MEDS: ZINC SULFATE 220 MG CAP PO SCH (09:20)
[2022-01-11] MEDS: ASCORBIC ACID 500 MG TAB PO SCH (09:20)
[2022-01-11] MEDS: CHOLECALCIFEROL (VIT D3) 1000 UNIT (25 mcg) TAB PO SCH (09:20)
[2022-01-11] MEDS: LACOSAMIDE 100 MG TAB PO SCH (09:20)
[2022-01-11] MEDS: LINAGLIPTIN 5 MG TAB PO SCH (09:20)
[2022-01-11] MEDS: amLODIPine 10 MG TAB FEEDTUBE SCH (09:20)
[2022-01-11] MEDS: dexAMETHasone 4 MG/ML VIAL IV SCH (09:20)
[2022-01-11] MEDS: LANSOPRAZOLE 30 MG SOLUTAB FEEDTUBE SCH (09:20)
[2022-01-11] MEDS: allopurinoL 300 MG TAB FEEDTUBE SCH (09:20)
[2022-01-11] MEDS: HEPARIN 5,000 UNIT/1 ML VIAL SUB-Q SCH (09:21)
[2022-01-11] MEDS: ASPIRIN 81 MG TAB CHEW FEEDTUBE SCH (09:22)
--- NOTE | 2022-01-11 10:45 | Discharge Summary ---
Providers - Providers Date of Admission: 01/05/22 21:30 Date of discharge: 01/11/22 Attending physician: DANIELLE SILVESTRE MD 01/06/22 01:19 Consult to Dietitian/Nutrition [CONS] Routine Physician Instructions: Reason For Exam: Reason for Consult: Write/Manage Tube Feeding 01/06/22 06:38 Consult to Physician [CONS] Routine Comment: Consulting Provider: GLORIA BENITEZ Physician Instructions: Reason For Exam: Elevated troponin 01/06/22 11:54 Occupational Therapy Evaluate and Treat [CONS] Stat Comment: Eval and Treat Reason For Exam: Occupational Therapy Physical Therapy Evaluation and Treat [CONS] Stat Comment: Eval and Treat Reason For Exam: Physical Therapy 01/06/22 12:04 Consult to Dietitian/Nutrition [CONS] Routine Physician Instructions: Assess nutrtn needs, initiate, modify, manage TF Reason For Exam: Reason for Consult: Write/Manage Tube Feeding Reason for Consult: Write/Manage Tube Feeding 01/06/22 15:47 Consult to Physician [CONS] Routine Comment: Consulting Provider: MICKI MALIN Physician Instructions: Reason For Exam: COVID-positive 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 Initial chest x-ray showed bilateral opacities. Patient became hypoxic and placed on supplemental O2. CT angiogram of the chest was negative for pulmonary emboli. Lower extremity Doppler negative for DVT. COVID PCR was positive on 01/06. Infectious disease consulted and patient was started on remdesivir. Her respiratory status remained stable. Once she was stable she was discharged back to intermediate. Disposition: 03 ALF FACILITY Final Discharge Diagnosis (Prints w/discharge instructions): chronic hypoka lemia. COVID-19 infection. COVID-19 pneumonia. Acute hypoxic respiratory failure. Sepsis. Dehydration. Severe constipation. Non-ST elevation SD. Elevated D-dimers. Insulin-dependent diabetes. Hyperlipidemia. History of seizure disorder. History of gout. History of dementia Time spent for discharge: 35 minutes Core Measure Documentation - Palliative Care Palliative Care/ Comfort Measures: Not Applicable - Core Measures Any of the following diagnoses?: history only Exam - Physical Exam Narrative exam: GENERAL: Well-developed well-nourished. In no acute distress. HEENT: NC @2LPM CHEST/LUNGS: Coarse breath sounds bilaterally. HEART/CARDIOVASCULAR: RRR. No murmur, rubs or gallops appreciated. ABDOMEN: +Peg tube. +BS. NT/ND. NEURO: Patient does not follow commands. EXTREMITIES: No cyanosis, clubbing or edema. PSYCH: Unable to assess. Patient mute and nonverbal at baseline. - Constitutional Vitals: Temp Pulse Resp BP Pulse Ox 97.8 F 96 H 20 148/77 96 01/11/22 05:15 01/11/22 06:13 01/11/22 05:15 01/11/22 06:13 01/11/22 10:00 Plan Care Plan Goals: Please complete dexamethasone until 01/16/2022. If patient develops worsening shortness of breath or increased oxygen requirement please return to ED. Follow up with: PRIMARY CARE, [Primary Care Provider] - 3-5 Days Prescriptions: Dexamethasone [Decadron] 6 mg PO QDAY 5 Days #5 tab
--- NOTE | 2022-01-11 12:54 | Progress Note ---
Assessment and Plan Cultures: 01/05/2022 blood culture: No growth 01/06/2022 COVID-19 PCR: Positive A/P: 86-year-old female past medical history dementia, seizures, GERD, intermediate resident admitted with: #Severe COVID-19 pneumonia: Patient presented with a week of symptoms, chest x- ray with diffuse bilateral infiltrates. D-dimer 900, CRP 1.6, ferritin 336, procalcitonin 0.05, LDH 159. #Acute hypoxemic respiratory failure: Likely secondary to COVID-19 infection. Currently on 2L NC. DVT scan, CTA chest negative for VTE. #Elevated troponins/NSTEMI: Cardiology following. Recommendations: -CRP high, so complete remainder of Decadron 10 day course upon discharge. Oxygenation stable. -Completed Remdesivir Joe Terry MD, FACP, [facility] O: [phone] F: [phone] C: [phone] Subjective Date of service: 01/11/22 Principal diagnosis: COVID-positive pneumonia Interval history: No fever. Stable on nasal cannula at 2 L/min. CRP up to 8.9. Objective - Exam Narrative Exam: Physical Exam (reviewed in chart to minimize risk of transmission) Constitutional: deferred Head, Ears, Nose: deferred Eyes: deferred Neck: deferred Oral: deferred Cardiovascular: deferred Respiratory: deferred GI: deferred Musculoskeletal: deferred Skin: deferred Hem/Lymphatic: deferred Psych: deferred Neurological: deferred - Constitutional Vitals: Vital Signs Temp Pulse Resp BP Pulse Ox 97.8 F 96 H 20 148/77 96 01/11/22 05:15 01/11/22 06:13 01/11/22 05:15 01/11/22 06:13 01/11/22 10:00 Temperature -Last 24 Hours Temperature 97.8 F Temperature 98.4 F Temperature 97.9 F - Labs CBC & Chem 7: 01/10/22 06:27 01/11/22 05:32 Labs: Abnormal lab results 01/10/22 01/10/22 01/11/22 Range/Units 16:43 22:12 05:32 D-Dimer 660.22 H (0-234) ng/mlDDU BUN (7-17) mg/dL Glucose (65-100) mg/dL POC Glucose 207 H 183 H (70-105) mg/dL Ferritin (10.0-200.0) ng/mL C-Reactive Protein (0.00-1.30) mg/dL 01/11/22 01/11/22 Range/Units 05:32 05:32 D-Dimer (0-234) ng/mlDDU BUN 24 H (7-17) mg/dL Glucose 108 H (65-100) mg/dL POC Glucose (70-105) mg/dL Ferritin 605.6 H (10.0-200.0) ng/mL C-Reactive Protein 8.90 H (0.00-1.30) mg/dL
[2022-01-11 13:39] VITALS: BP 142/65
== END 2022-01-11 16:07 | DRG 871 ==
LOC: ED 04:15 → 3A 21:30
PROVIDERS: ADMIT Internal Medicine; ATTEND Student in an Organized Health Care Education/Training Program
PROC: XW033E5 Introduction of Remdesivir Anti-infective into Peripheral Vein, Percutaneous Approach, New Technology Group 5 (ICD-10-PCS; principal; 2022-01-06)
DX: A41.89 Other specified sepsis (principal); U07.1 COVID-19; J12.82 Pneumonia due to coronavirus disease 2019; I21.4 Non-ST elevation (NSTEMI) myocardial infarction; J96.01 Acute respiratory failure with hypoxia; K21.9 Gastro-esophageal reflux disease without esophagitis; I10 Essential (primary) hypertension; E11.9 Type 2 diabetes mellitus without complications; M19.90 Unspecified osteoarthritis, unspecified site; D64.9 Anemia, unspecified; E86.0 Dehydration; G40.909 Epilepsy, unspecified, not intractable, without status epilepticus; M10.9 Gout, unspecified; E78.2 Mixed hyperlipidemia; K59.00 Constipation, unspecified; E87.6 Hypokalemia; Z86.73 Personal history of transient ischemic attack (TIA), and cerebral infarction without residual deficits
CPT/HCPCS: 36415; 71045; 71250; 71275; 74018; 80048; 80053; 80061; 80076; 81001; 82140; 82550; 82553; 82728; 82962; 83036; 83615; 83880; 84145; 84484; 85007; 85025; 85027; 85379; 85610; 85730; 86140; 87040; 93005; 93308; 93321; 93325; 93970; 94640; 94760; G0378; J3490; J0360; J0456; J0696; J1100; J1644; J1815; J2405; J2765; J7030; J7050; Q9967; U0003

== ENCOUNTER 2022-01-11 19:57 | Inpatient (IN) | payer MEDICARE ==
--- NOTE | 2022-01-11 21:34 | Emergency Department Report ---
ED Shortness of Breath HPI - General Chief Complaint: Dyspnea/Respdistress Stated Complaint: ROBERT/COVID Time Seen by Provider: 01/11/22 20:51 Source: EMS Mode of arrival: Stretcher Limitations: Altered Mental Status - History of Present Illness Initial Comments: 86-year-old female with history Seizure, CVA, and Hypertension brought in with shortness of breath has been going on for couple of days progressively getting worse. History is very limited to EMS. No fever or chills reported. No other modifying or accident factor reported. MD Complaint: shortness of breath - Related Data Home Medications Medication Instructions Recorded Confirmed Last Taken Ferrous Sulfate [Iron 325 MG] 325 mg PO DAILY 03/17/21 01/06/22 Unknown Lovastatin [Altoprev] 40 mg PO DAILY 03/17/21 01/06/22 Unknown allopurinoL [Zyloprim] 300 mg PO QDAY 03/17/21 01/06/22 Unknown amLODIPine 10 mg PO DAILY 03/17/21 01/06/22 Unknown Previous Rx's Medication Instructions Recorded Last Taken Type Aspirin [Adult Aspirin] 81 mg PO DAILY #30 tablet. 03/22/21 Unknown Rx Linagliptin [Tradjenta] 5 mg PO QAMDIAB #30 tablet 03/22/21 Unknown Rx Insulin Glargine [Lantus VIAL] 10 units SUB-Q QHS #30 ml 11/04/21 Unknown Rx Lacosamide [Vimpat] 100 mg PO Q12HR #60 tablet 11/04/21 Unknown Rx Lansoprazole Solutab [Prevacid 30 mg FEEDTUBE QDAY #30 tab.rapdis 11/04/21 Unkno wn Rx Solutab] Sennosides/Docusate [Senokot S] 2 tab FEEDTUBE BID #30 tablet 11/04/21 Unknown Rx levETIRAcetam [Keppra] 1,000 mg FEEDTUBE BID #600 ml 11/04/21 Unknown Rx traMADoL [Ultram 50 MG tab] 225 mg PO Q6HR #20 tab 11/04/21 Unknown Rx Ascorbic Acid [Vitamin C] 500 mg PO BID tablet 01/11/22 Unknown Rx Cholecalciferol Vit D3 [Vitamin D3 1,000 unit PO QDAY tablet 01/11/22 Unknown Rx 1,000 UNIT TAB] Dexamethasone [Decadron] 6 mg PO QDAY 5 Days #5 tab 01/11/22 Unknown Rx Metoprolol [Lopressor TAB] 25 mg PO Q8HR 30 Days #90 tablet 01/11/22 Unknown Rx Zinc Sulfate 220 mg PO BID capsule 01/11/22 Unknown Rx polyethylene glycoL 3350 [Miralax 17 gm PO QDAY powd.pack 01/11/22 Unknown Rx 3350] Allergies Allergy/AdvReac Type Severity Reaction Status Date / Time No Known Allergies Allergy Verified 03/15/21 10:30 ED Review of Systems ROS: Stated complaint: ROBERT/COVID Other details as noted in HPI Comment: All other systems reviewed and negative Respiratory: cough, shortness of breath, SOB at rest ED Past Medical Hx - Past Medical History Previous Medical History?: Yes Hx Hypertension: Yes Hx CVA: Yes Hx Diabetes: Yes Hx GERD: Yes Hx Renal Disease: Yes (JIMMY) Hx Arthritis: Yes (Gout) Hx Seizures: Yes Hx Dementia: Yes - Surgical History Past Surgical History?: Yes Additional Surgical History: Feeding tube - Social History Smoking Status: Unknown if ever smoked - Medications Home Medications: Home Medications Medication Instructions Recorded Confirmed Last Taken Type Ferrous Sulfate [Iron 325 MG] 325 mg PO DAILY 03/17/21 01/06/22 Unknown History Lovastatin [Altoprev] 40 mg PO DAILY 03/17/21 01/06/22 Unknown History allopurinoL [Zyloprim] 300 mg PO QDAY 03/17/21 01/06/22 Unknown History amLODIPine 10 mg PO DAILY 03/17/21 01/06/22 Unknown History Aspirin [Adult Aspirin] 81 mg PO DAILY #30 tablet. 03/22/21 01/06/22 Unknown Rx Linagliptin [Tradjenta] 5 mg PO QAMDIAB #30 tablet 03/22/21 01/06/22 Unknown Rx Insulin Glargine [Lantus VIAL] 10 units SUB-Q QHS #30 ml 11/04/21 01/06/22 Unkn own Rx Lacosamide [Vimpat] 100 mg PO Q12HR #60 tablet 11/04/21 01/06/22 Unknown Rx Lansoprazole Solutab [Prevacid 30 mg FEEDTUBE QDAY #30 tab.rapdis 11/04/21 01/06/22 Unknown Rx Solutab] Sennosides/Docusate [Senokot S] 2 tab FEEDTUBE BID #30 tablet 11/04/21 01/06/22 Unknown Rx levETIRAcetam [Keppra] 1,000 mg FEEDTUBE BID #600 ml 11/04/21 01/06/22 Unknown Rx traMADoL [Ultram 50 MG tab] 225 mg PO Q6HR #20 tab 11/04/21 01/06/22 Unknown Rx Ascorbic Acid [Vitamin C] 500 mg PO BID tablet 01/11/22 Unknown Rx Cholecalciferol Vit D3 [Vitamin D3 1,000 unit PO QDAY tablet 01/11/22 Unknown Rx 1,000 UNIT TAB] Dexamethasone [Decadron] 6 mg PO QDAY 5 Days #5 tab 01/11/22 Unknown Rx Metoprolol [Lopressor TAB] 25 mg PO Q8HR 30 Days #90 tablet 01/11/22 Unknown Rx Zinc Sulfate 220 mg PO BID capsule 01/11/22 Unknown Rx polyethylene glycoL 3350 [Miralax 17 gm PO QDAY powd.pack 01/11/22 Unknown Rx 3350] ED Physical Exam - General Limitations: Altered Mental Status General appearance: alert, in no apparent distress - Head Head exam: Present: normal inspection - Eye Eye exam: Present: normal appearance Pupils: Present: normal accommodation - ENT ENT exam: Present: normal exam, normal orophraynx, mucous membranes dry - Neck Neck exam: Present: normal inspection, full ROM. Absent: tenderness - Respiratory Respiratory exam: Present: normal lung sounds bilaterally. Absent: respiratory distress, wheezes, accessory muscle use - Cardiovascular Cardiovascular Exam: Present: regular rate, normal rhythm, normal heart sounds - GI/Abdominal GI/Abdominal exam: Present: soft, normal bowel sounds. Absent: distended, tenderness - Extremities Exam Extremities exam: Present: normal inspection, normal capillary refill. Absent: tenderness - Back Exam Back exam: Absent: tenderness - Neurological Exam Neurological exam: Present: alert, oriented X3 ED Course Vital Signs 01/11/22 01/11/22 01/11/22 20:31 20:37 20:45 Temperature Pulse Rate 126 H 130 H 119 H Respiratory 22 26 H 25 H Rate Blood Pressure 109/62 Blood Pressure 128/64 [Right] O2 Sat by Pulse 100 Oximetry 01/11/22 01/11/22 01/11/22 20:49 21:01 21:15 Temperature 99.9 F H Pulse Rate 136 H 117 H 114 H Respiratory 24 23 25 H Rate Blood Pressure 120/86 115/65 127/73 Blood Pressure [Right] O2 Sat by Pulse 100 100 Oximetry 01/11/22 01/11/22 01/11/22 21:31 21:45 22:01 Temperature Pulse Rate 114 H 120 H 112 H Respiratory 41 H 27 H 22 Rate Blood Pressure 114/71 114/71 119/71 Blood Pressure [Right] O2 Sat by Pulse 100 Oximetry 01/11/22 22:15 Temperature Pulse Rate 112 H Respiratory 26 H Rate Blood Pressure 132/82 Blood Pressure [Right] O2 Sat by Pulse 100 Oximetry - Reevaluation(s) Reevaluation #1: 01/11/22 21:36 brought in with shortness of breath--among differential diagnosis could be but not limited to acute exacerbation of COPD or CHF, myocardiac infarction, pulmonary embolism, acute exacerbation of asthma, pneumothorax, pneumonia or Viral or Bacterial Upper/Lower respiratory tract infection or other systemic infection.--To rule out the above will go ahead and order EKG, cardiac enzyme including troponin, BNP, CKMB, chest x-ray, CBC, CMP, UA and or D-dimer. In the meantime we will go ahead and treat with DuoNeb, 125 mg of Solu-Medrol, mag nesium sulfate 2 g IV, and will make a case for antibiotics Levaquin considering likely cause to be acute COPD exacerbation and continue to monitor the patient. Reevaluation #2: 01/12/22 00:15 30 with elevated white count at 15,000 coupled with tachycardia and tachypneic a nd also noted with slightly elevated lactic acid at 2.0 with troponin of 0.091--and chest x-ray with multifocal pneumonia--this patient is likely septic so we started aggressive IV hydration and broad-spectrum antibiotics with Vanco and Zosyn and admit this patient to the out. Reevaluation #3: 01/12/22 00:25 Also noted with elevated D-dimer so we will go ahead and order CT chest angio to rule out any PE Dr. Plummer consulted for admission who accept pt but agreed to checking CTA chest to rule out pulmonary embolism ED Medical Decision Making - Lab Data Result diagrams: 01/11/22 21:41 01/11/22 21:41 - EKG Data -: EKG Interpreted by Ms EKG shows normal: sinus rhythm Rate: tachycardia - EKG Data 01/12/22 00:17 Noted with sinus tachycardia at the rate of 112 bpm in this otherwise unremarkable ECG. - Radiology Data Chest x-ray with multifocal pneumonia Critical Care Time: Yes (60 minutes) Critical care time in (mins) excluding proc time.: 60 Critical care attestation.: If time is entered above; I have spent that time in minutes in the direct care of this critically ill patient, excluding procedure time. Patient presents with tachycardia and tachypneic and later noted with multifocal pneumonia with elevated white count and lactic acid and due to high probability of clinically significant, life threatening deterioration, this patient required my highest level of preparedness to intervene emergently and I personally spent this critical care time directly and personally managing this patient. This critical care time included obtaining a history; examining this patient; pulse oximetry ; ordering and review of studies ; arranging urgent treatment with development of a management plan ; evaluation of patient's response to treatment ; frequent reassessment ; and, discussion with other providers. This critical care time was performed to assess and manage the high probability of imminent, life-threatening deterioration that could result in multiple organ damage if not done in a timely fashion. Critical Care Time: 60 minutes ED Disposition Clinical Impression: Shortness of breath, Multifocal pneumonia Altered mental status Qualifiers: Altered mental status type: unspecified Qualified Code(s): R41.82 - Altered m ental status, unspecified Sepsis Qualifiers: Sepsis type: sepsis due to unspecified organism Sepsis acute organ dysfunction status: unspecified Qualified Code(s): A41.9 - Sepsis, unspecified organism Disposition: 09 ADMITTED INPATIENT Is pt being admited?: Yes Does the pt Need Aspirin: No Condition: Stable Instructions: Bacterial Pneumonia (ED)
[2022-01-11 22:17] LABS: Hematocrit 30.5 % (30.3-42.9); Hemoglobin 10.4 gm/dl (10.1-14.3); Mean Corpuscular HGB Conc 34 % (30-34); Mean Corpuscular Volume 83 fl (79-97); Platelet Count 450 K/mm3 (140-440); Red Blood Count 3.69 M/mm3 (3.65-5.03)
[2022-01-11 22:19] LABS: Red Cell Distribution Width 20.6 % (13.2-15.2)
[2022-01-11 22:28] LABS: Partial Thromboplastin Time 24.7 Sec. (24.2-36.6)
[2022-01-11 22:32] LABS: Creatine Kinase MB 2.7 ng/mL (0.0-4.0)
[2022-01-11 22:34] LABS: Alanine Aminotransferase 13 units/L (7-56); BUN/Creatinine Ratio 42; Blood Urea Nitrogen 25 mg/dL (7-17); Calcium 9.9 mg/dL (8.4-10.2); Hemolysis Index 0
--- NOTE | 2022-01-11 22:45 | XRay Report ---
CHEST 1 VIEW 01/11/2022 9:33 PM INDICATION / CLINICAL INFORMATION: Dyspnea. COMPARISON: 01/05/2022 FINDINGS: SUPPORT DEVICES: None. HEART / MEDIASTINUM: No significant abnormality. LUNGS / PLEURA: Scattered patchy airspace opacities throughout the lungs most prominent within the ri ght lung. No pneumothorax. ADDITIONAL FINDINGS: No significant additional findings. IMPRESSION: 1. Scattered patchy airspace opacities throughout the lungs suggesting multifocal pneumonia. Signer Name: Mandeep Andrews DO Signed: 01/11/2022 10:40 PM Workstation Name: [id number]
[2022-01-12] MEDS ORDERED: SODIUM CHLORIDE 0.9% 1000 ML 1,000 ML IV ONE (00:23)
[2022-01-12] MEDS ORDERED: PIPERACILLIN/TAZOBACTAM 3.375 3.375 GM/50 ML BAG IV ONE (00:24)
[2022-01-12] MEDS ORDERED: VANCOMYCIN/NS 1 GM/250 ML 1 GM/250 ML BAG IV ONE (00:24)
[2022-01-12] MEDS ORDERED: MORPHINE 2 MG/1 ML INJ IV PRN (00:52)
[2022-01-12] MEDS ORDERED: MORPHINE 4 MG/1 ML INJ IV PRN (00:52)
[2022-01-12] MEDS ORDERED: ACETAMINOPHEN 325 MG TAB PO PRN (00:52)
[2022-01-12] MEDS ORDERED: MAGNESIUM HYDROXIDE (MOM) ORAL LIQD UDC PO PRN (00:52)
[2022-01-12] MEDS ORDERED: ONDANSETRON 4 MG/2 ML INJ IV PRN (00:52)
[2022-01-12] MEDS ORDERED: DEXTROSE 50% IN WATER (25GM) 50 ML SYRINGE IV PRN (00:52)
[2022-01-12] MEDS ORDERED: VANCOMYCIN PHARMACY TO DOSE IV SCH (01:00)
[2022-01-12] MEDS ORDERED: CEFEPIME/NS 2 GM/100 ML 2 GM/100 ML BAG IV SCH (01:00)
--- NOTE | 2022-01-12 01:06 | History and Physical Report ---
History of Present Illness Date of examination: 01/12/22 Date of admission: 01/12/2022 Chief complaint: Shortness of breath History of present illness: 86-year-old -[place] female resident of a longterm with known history of seizure disorder, CVA, hypertension and dementia brought into the emergency room today for evaluation of shortness of breath which has been ongoing for the past few days. Shortness of breath is said to have been progressive and therefore patient brought in by EMS. Most of the history was obtained from the ER staff as patient is unable to give any history at this time. Family members also not available. There has not been any history of fever or chills, no cough. Patient found to be in respiratory distress upon arrival in the emergency room. She was placed on nonrebreather. Work-up in the emergency room today, labs reveals leukocytosis of 15.2, D-dimer of 1128, lactic acid of 2.1, troponin of 0.091, BUN of 25 and creatinine of 0.6. Chest x-ray reveals scattered patchy airspace opacities throughout the lungs suggesting multifocal pneumonia. CT angiogram of the chest was negative for pulmonary embolism. There is also interval worsening of multifocal bilateral pneumonia. Patient was commenced on empiric IV antibiotics in the emergency room Past History Past Medical History: arthritis, diabetes, GERD, hypertension, hyperlipidemia, seizures, stroke, other (Dementia,) Past Surgical History: Other (Feeding tube placement) Social history: other (Patient resides in the longterm) Family history: no significant family history Medications and Allergies Allergies Allergy/AdvReac Type Severity Reaction Status Date / Time No Known Allergies Allergy Verified 03/15/21 10:30 Home Medications Medication Instructions Recorded Confirmed Last Taken Type Ferrous Sulfate [Iron 325 MG] 325 mg PO DAILY 03/17/21 01/06/22 Unknown History Lovastatin [Altoprev] 40 mg PO DAILY 03/17/21 01/06/22 Unknown History allopurinoL [Zyloprim] 300 mg PO QDAY 03/17/21 01/06/22 Unknown History amLODIPine 10 mg PO DAILY 03/17/21 01/06/22 Unknown History Aspirin [Adult Aspirin] 81 mg PO DAILY #30 tablet. 03/22/21 01/06/22 Unknown Rx Linagliptin [Tradjenta] 5 mg PO JANNA #30 tablet 03/22/21 01/06/22 Unknown Rx Insulin Glargine [Lantus VIAL] 10 units SUB-Q QHS #30 ml 11/04/21 01/06/22 Unknown Rx Lacosamide [Vimpat] 100 mg PO Q12HR #60 tablet 11/04/21 01/06/22 Unknown Rx Lansoprazole Solutab [Prevacid 30 mg FEEDTUBE QDAY #30 tab.rapdis 11/04/21 01/06/22 Unknown Rx Solutab] Sennosides/Docusate [Senokot S] 2 tab FEEDTUBE BID #30 tablet 11/04/21 01/06/22 Unknown Rx levETIRAcetam [Keppra] 1,000 mg FEEDTUBE BID #600 ml 11/04/21 01/06/22 Unknown Rx traMADoL [Ultram 50 MG tab] 225 mg PO Q6HR #20 tab 11/04/21 01/06/22 Unknown Rx Ascorbic Acid [Vitamin C] 500 mg PO BID tablet 01/11/22 Unknown Rx Cholecalciferol Vit D3 [Vitamin D3 1,000 unit PO QDAY tablet 01/11/22 Unknown Rx 1,000 UNIT TAB] Dexamethasone [Decadron] 6 mg PO QDAY 5 Days #5 tab 01/11/22 Unknown Rx Metoprolol [Lopressor TAB] 25 mg PO Q8HR 30 Days #90 tablet 01/11/22 Unknown Rx Zinc Sulfate 220 mg PO BID capsule 01/11/22 Unknown Rx polyethylene glycoL 3350 [Miralax 17 gm PO QDAY powd.pack 01/11/22 Unknown Rx 3350] Active Meds: Active Medications Acetaminophen (Acetaminophen 325 Mg Tab) 650 mg PO Q4H PRN PRN Reason: Pain MILD(1-3)/Fever >100.5/FERRARI Dextrose (Dextrose 50% In Water (25gm) 50 Ml Syringe) 50 ml IV Q30MIN PRN; Protocol PRN Reason: Hypoglycemia Heparin Sodium (Porcine) (Heparin 5,000 Unit/1 Ml Vial) 5,000 unit SUB-Q Q8HR CONNIE Sodium Chloride (Nacl 0.9% 1000 Ml) 1,000 mls @ 999 mls/hr IV BOLUS ONE Stop: 01/12/22 01:23 Vancomycin HCl (Vancomycin/Ns 1 Gm/250 Ml) 1 gm in 250 mls @ 167.007 mls/hr IV ONCE ONE; Protocol Stop: 01/12/22 01:53 Sodium Chloride (Nacl 0.9% 1000 Ml) 1,000 mls @ 125 mls/hr IV DIRECT CONNIE Cefepime HCl (Cefepime/Ns 2 Gm/100 Ml) 2 gm in 100 mls @ 200 mls/hr IV Q8H CONNIE; Protocol Insulin Human Lispro (Insulin Lispro 100 Unit/Ml) 0 unit SUB-Q ACHS CONNIE; Protocol Magnesium Hydroxide (Magnesium Hydroxide (Mom) Oral Liqd Udc) 30 ml PO Q4H PRN PRN Reason: Constipation Morphine Sulfate (Morphine 2 Mg/1 Ml Inj) 2 mg IV Q4H PRN PRN Reason: Pain, Moderate (4-6) Morphine Sulfate (Morphine 4 Mg/1 Ml Inj) 4 mg IV Q4H PRN PRN Reason: Pain , Severe (7-10) Ondansetron HCl (Ondansetron 4 Mg/2 Ml Inj) 4 mg IV Q8H PRN PRN Reason: Nausea And Vomiting Sodium Chloride (Sodium Chloride 0.9% 10 Ml Flush Syringe) 10 ml IV BID CONNIE Sodium Chloride (Sodium Chloride 0.9% 10 Ml Flush Syringe) 10 ml IV PRN PRN PRN Reason: LINE FLUSH Review of Systems ROS unobtainable: due to mental status Exam - Constitutional Vitals: Temp Pulse Resp BP Pulse Ox 99.9 F H 115 H 36 H 138/84 100 01/11/22 20:49 01/12/22 00:01 01/12/22 00:01 01/12/22 00:01 01/12/22 00:01 General appearance: Present: no acute distress, mild distress - EENT Eyes: Present: PERRL, EOM intact. Absent: scleral icterus ENT: hearing intact, clear oral mucosa, dentition normal - Neck Neck: Present: supple, normal ROM - Respiratory Respiratory effort: normal Respiratory: bilateral: diminished - Cardiovascular Rhythm: regular Heart Sounds: Present: S1 & S2. Absent: gallop, systolic murmur, diastolic murmur, rub, click - Extremities Extremities: no ischemia, pulses intact, pulses symmetrical, No edema, normal temperature, normal color, Full ROM Peripheral Pulses: within normal limits - Abdominal General gastrointestinal: Present: soft, non-tender, non-distended, normal bowel sounds, other (Peg tube in place). Absent: mass - Integumentary Integumentary: Present: clear, warm, dry, normal turgor. Absent: rash - Musculoskeletal Musculoskeletal: strength equal bilaterally - Psychiatric Psychiatric: cooperative - Neurologic Neurologic: CNII-XII intact, no focal deficits, moves all extremities HEART Score - HEART Score Troponin: Troponin T 0.091 ng/mL (0.00-0.029) H 01/11/22 21:41 Results - Labs CBC & Chem 7: 01/11/22 21:41 01/11/22 21:41 Labs: Abnormal lab results 01/11/22 01/11/22 01/11/22 Range/Units 21:41 21:41 21:41 WBC 15.2 H (4.5-11.0) K/mm3 RDW 20.6 H (13.2-15.2) % Plt Count 450 H (140-440) K/mm3 D-Dimer 1128.67 H (0-234) ng/mlDDU BUN 25 H (7-17) mg/dL Glucose 207 H (65-100) mg/dL Lactic Acid (0.7-2.0) mmol/L CK-MB (CK-2) Rel Index (0-4) Troponin T (0.00-0.029) ng/mL 01/11/22 01/11/22 Range/Units 21:41 23:30 WBC (4.5-11.0) K/mm3 RDW (13.2-15.2) % Plt Count (140-440) K/mm3 D-Dimer (0-234) ng/mlDDU BUN (7-17) mg/dL Glucose (65-100) mg/dL Lactic Acid 2.10 H* (0.7-2.0) mmol/L CK-MB (CK-2) Rel Index 9.0 H (0-4) Troponin T 0.091 H (0.00-0.029) ng/mL Assessment and Plan Assessment: 1. Multifocal pneumonia 2. Sepsis 3. Diabetes mellitus 4. Hypertension 5. History of dementia 6. Elevated D-dimer 7. Elevated troponin-possibly demand ischemia Plan: Admit to [facility] and commenced on empiric IV antibiotics and IV fluid. Will await culture results. Patient will be ruled out for possible COVID We will resume routine home medications once reconciled. Patient will be placed on sliding scale insulin and will monitor Accu-Cheks closely. DVT prophylaxis: Subcutaneous heparin CODE STATUS: Full code
[2022-01-12 02:36] LABS: Anisocytosis 1+; Basophils % (Manual) 0 % (0.0-1.8); Eosinophils % (Manual) 0 % (0.0-4.3); Total Cells Counted 100
[2022-01-12 02:37] LABS: Hypochromasia Few; Platelet Estimate Consistent w Auto
[2022-01-12] MEDS: CEFEPIME/NS 2 GM/100 ML 2 GM/100 ML BAG IV SCH ×2 (04:50→13:54)
--- NOTE | 2022-01-12 04:57 | Cat Scan Report ---
CTA CHEST WITH CONTRAST INDICATION / CLINICAL INFORMATION: SOB with elevated d-dimer. TECHNIQUE: Axial CT images were obtained through the chest after injection of 100 cc Omni 350 IV cont rast. 3 plane MIP and/or 3D reconstructions were produced. All CT scans at this location are performe d using CT dose reduction for ALARA by means of automated exposure control. COMPARISON: CTA chest 01/06/2022 FINDINGS: Moderate respiratory motion artifact. PULMONARY EMBOLUS: None. THORACIC AORTA: Mild atherosclerotic calcification without acute abnormality. HEART: No significant abnormality. CORONARY ARTERY CALCIFICATION: Present -- Mild. MEDIASTINUM / LISSETTE: No significant abnormality. PLEURA: No pleural effusion. No pneumothorax. LUNGS: Moderate groundglass and streaky pulmonary disease both lower lobes, right middle and upper lo bes characteristic for probable Covid pneumonia , worsened since prior study ADDITIONAL FINDINGS: None. UPPER ABDOMEN: No acute findings. SKELETAL STRUCTURES: No significant osseous abnormality. IMPRESSION: 1. No CT evidence for pulmonary embolism. 2. Interval worsening multifocal bilateral pneumonia Signer Name: Yonathan Baeza MD Signed: 01/12/2022 4:52 AM Workstation Name: [id number]
[2022-01-12] MEDS: INSULIN LISPRO 100 UNIT/ML SUB-Q SCH ×4 (07:45→23:06)
[2022-01-12] MEDS: SODIUM CHLORIDE 0.9% 1000 ML 1,000 ML IV SCH ×2 (08:29→14:43)
--- NOTE | 2022-01-12 10:47 | Event Note ---
Date: 01/12/22 Patient seen and examined resting comfortably was on nonrebreather although no acute respiratory distress was changed to 2 L nasal cannula satting 95%. Heart rate 80. We will transition to [facility] with remote telemetry. Obtain cardiology evaluation due to mild bump in chronically elevated troponin. Will need to have a conversation with family about goals of care.
--- NOTE | 2022-01-12 11:24 | Consultation ---
History of Present Illness Consult date: 01/12/22 Requesting physician: JAROD LAND Reason for consult: pneumonia, other (NSTEMI) History of present illness: PULMONARY/CCM CONSULT NOTE (Full dictation # [id number]) Please see dictated notes for full details Past History Past Medical History: arthritis, diabetes, GERD, hypertension, hyperlipidemia, seizures, stroke, other (Dementia,) Past Surgical History: Other (Feeding tube placement) Social history: other (Patient resides in the [facility]) Family history: no significant family history Medications and Allergies Allergies Allergy/AdvReac Type Severity Reaction Status Date / Time No Known Allergies Allergy Verified 03/15/21 10:30 Home Medications Medication Instructions Recorded Confirmed Last Taken Type Ferrous Sulfate [Iron 325 MG] 325 mg PO DAILY 03/17/21 01/06/22 Unknown History Lovastatin [Altoprev] 40 mg PO DAILY 03/17/21 01/06/22 Unknown History allopurinoL [Zyloprim] 300 mg PO QDAY 03/17/21 01/06/22 Unknown History amLODIPine 10 mg PO DAILY 03/17/21 01/06/22 Unknown History Aspirin [Adult Aspirin] 81 mg PO DAILY #30 tablet. 03/22/21 01/06/22 Unknown Rx Linagliptin [Tradjenta] 5 mg PO QAMDIAB #30 tablet 03/22/21 01/06/22 Unknown Rx Insulin Glargine [Lantus VIAL] 10 units SUB-Q QHS #30 ml 11/04/21 01/06/22 Unknown Rx Lacosamide [Vimpat] 100 mg PO Q12HR #60 tablet 11/04/21 01/06/22 Unknown Rx Lansoprazole Solutab [Prevacid 30 mg FEEDTUBE QDAY #30 tab.rapdis 11/04/21 01/06/22 Unknown Rx Solutab] Sennosides/Docusate [Senokot S] 2 tab FEEDTUBE BID #30 tablet 11/04/21 01/06/22 Unknown Rx levETIRAcetam [Keppra] 1,000 mg FEEDTUBE BID #600 ml 11/04/21 01/06/22 Unknown Rx traMADoL [Ultram 50 MG tab] 225 mg PO Q6HR #20 tab 11/04/21 01/06/22 Unknown Rx Ascorbic Acid [Vitamin C] 500 mg PO BID tablet 01/11/22 Unknown Rx Cholecalciferol Vit D3 [Vitamin D3 1,000 unit PO QDAY tablet 01/11/22 Unknown Rx 1,000 UNIT TAB] Dexamethasone [Decadron] 6 mg PO QDAY 5 Days #5 tab 01/11/22 Unknown Rx Metoprolol [Lopressor TAB] 25 mg PO Q8HR 30 Days #90 tablet 01/11/22 Unknown Rx Zinc Sulfate 220 mg PO BID capsule 01/11/22 Unknown Rx polyethylene glycoL 3350 [Miralax 17 gm PO QDAY powd.pack 01/11/22 Unknown Rx 3350] Active Meds: Active Medications Acetaminophen (Acetaminophen 325 Mg Tab) 650 mg PO Q4H PRN PRN Reason: Pain MILD(1-3)/Fever >100.5/FERRARI Dextrose (Dextrose 50% In Water (25gm) 50 Ml Syringe) 50 ml IV Q30MIN PRN; Protocol PRN Reason: Hypoglycemia Heparin Sodium (Porcine) (Heparin 5,000 Unit/1 Ml Vial) 5,000 unit SUB-Q Q8HR CONNIE Sodium Chloride (Nacl 0.9% 1000 Ml) 1,000 mls @ 125 mls/hr IV DIRECT CONNIE Last Admin: 01/12/22 08:29 Dose: 125 mls/hr Cefepime HCl (Cefepime/Ns 2 Gm/100 Ml) 2 gm in 100 mls @ 200 mls/hr IV Q12H CONNIE; Protocol Last Admin: 01/12/22 04:50 Dose: 200 mls/hr Vancomycin HCl (Vancomycin/Ns 1 Gm/250 Ml) 1 gm in 250 mls @ 166.667 mls/hr IV Q24H CONNIE Insulin Human Lispro (Insulin Lispro 100 Unit/Ml) 0 unit SUB-Q ACHS CONNIE; Davonte col Last Admin: 01/12/22 07:45 Dose: Not Given Magnesium Hydroxide (Magnesium Hydroxide (Mom) Oral Liqd Udc) 30 ml PO Q4H PRN PRN Reason: Constipation Morphine Sulfate (Morphine 2 Mg/1 Ml Inj) 2 mg IV Q4H PRN PRN Reason: Pain, Moderate (4-6) Morphine Sulfate (Morphine 4 Mg/1 Ml Inj) 4 mg IV Q4H PRN PRN Reason: Pain , Severe (7-10) Ondansetron HCl (Ondansetron 4 Mg/2 Ml Inj) 4 mg IV Q8H PRN PRN Reason: Nausea And Vomiting Sodium Chloride (Sodium Chloride 0.9% 10 Ml Flush Syringe) 10 ml IV BID CONNIE Sodium Chloride (Sodium Chloride 0.9% 10 Ml Flush Syringe) 10 ml IV PRN PRN PRN Reason: LINE FLUSH Physical Examination Vital signs: Vital Signs Pulse Resp 126 H 22 01/11/22 20:31 01/11/22 20:31 Results - Laboratory Findings CBC and BMP: 01/11/22 21:41 01/12/22 10:47 PT/INR, D-dimer PT 14.3 Sec. (12.2-14.9) 01/11/22 21:41 INR 1.00 (0.87-1.13) 01/11/22 21:41 D-Dimer 1128.67 ng/mlDDU (0-234) H 01/11/22 21:41 Abnormal lab findings: Abnormal Labs 01/11/22 01/11/22 01/11/22 21:41 21:41 21:41 WBC 15.2 H RDW 20.6 H Plt Count 450 H Seg Neuts % (Manual) 91.0 H Lymphocytes % (Manual) 6.0 L Seg Neutrophils # Man 13.8 H Lymphocytes # (Manual) 0.9 L D-Dimer 1128.67 H BUN 25 H Glucose 207 H POC Glucose Lactic Acid CK-MB (CK-2) Rel Index Troponin T 01/11/22 01/11/22 01/12/22 21:41 23:30 00:35 WBC RDW Plt Count Seg Neuts % (Manual) Lymphocytes % (Manual) Seg Neutrophils # Man Lymphocytes # (Manual) D-Dimer BUN Glucose POC Glucose Lactic Acid 2.10 H* 2.20 H* CK-MB (CK-2) Rel Index 9.0 H Troponin T 0.091 H 01/12/22 01/12/22 00:35 07:43 WBC RDW Plt Count Seg Neuts % (Manual) Lymphocytes % (Manual) Seg Neutrophils # Man Lymphocytes # (Manual) D-Dimer BUN Glucose POC Glucose 112 H Lactic Acid CK-MB (CK-2) Rel Index Troponin T 0.105 H*
--- NOTE | 2022-01-12 11:38 | Consultation ---
History of Present Illness - Reason for Consult Consult date: 01/12/22 multifocal pneumonia, sepsis Requesting physician: JAROD LAND - History of Present Illness The patient is an 86-year-old female with seizure disorder, prior CVA, hypertension, dementia, [facility] resident admitted with worsening shortness of breath. Upon evaluation in the ER, noted to be in respiratory distress requiring nonrebreather mask. Low-grade temperature 99.9 F. Labs revealed leukocytosis WBC 15.2, platelets 450, D-dimer 1128, lactate 2.2, troponin 0.09, 0.1. Chest x-ray showed multifocal pneumonia. CTA chest showed no pulmonary embolism, showed multifocal bilateral pneumonia. Infectious diseases was consulted for additional evaluation. Review of Systems: Poor historian, limited history and ROS Past History Past Medical History: arthritis, diabetes, GERD, hypertension, hyperlipidemia, seizures, stroke, other (Dementia,) Past Surgical History: Other (Feeding tube placement) Social history: other (Patient resides in the [facility]) Family history: no significant family history Medications and Allergies Allergies Allergy/AdvReac Type Severity Reaction Status Date / Time No Known Allergies Allergy Verified 03/15/21 10:30 Home Medications Medication Instructions Recorded Confirmed Last Taken Type Ferrous Sulfate [Iron 325 MG] 325 mg PO DAILY 03/17/21 01/06/22 Unknown History Lovastatin [Altoprev] 40 mg PO DAILY 03/17/21 01/06/22 Unknown History allopurinoL [Zyloprim] 300 mg PO QDAY 03/17/21 01/06/22 Unknown History amLODIPine 10 mg PO DAILY 03/17/21 01/06/22 Unknown History Aspirin [Adult Aspirin] 81 mg PO DAILY #30 tablet. 03/22/21 01/06/22 Unknown Rx Linagliptin [Tradjenta] 5 mg PO QAMDIAB #30 tablet 03/22/21 01/06/22 Unknown Rx Insulin Glargine [Lantus VIAL] 10 units SUB-Q QHS #30 ml 11/04/21 01/06/22 Unknown Rx Lacosamide [Vimpat] 100 mg PO Q12HR #60 tablet 11/04/21 01/06/22 Unknown Rx Lansoprazole Solutab [Prevacid 30 mg FEEDTUBE QDAY #30 tab.rapdis 11/04/21 01/06/22 Unknown Rx Solutab] Sennosides/Docusate [Senokot S] 2 tab FEEDTUBE BID #30 tablet 11/04/21 01/06/22 Unknown Rx levETIRAcetam [Keppra] 1,000 mg FEEDTUBE BID #600 ml 11/04/21 01/06/22 Unknown Rx traMADoL [Ultram 50 MG tab] 225 mg PO Q6HR #20 tab 11/04/21 01/06/22 Unknown Rx Ascorbic Acid [Vitamin C] 500 mg PO BID tablet 01/11/22 Unknown Rx Cholecalciferol Vit D3 [Vitamin D3 1,000 unit PO QDAY tablet 01/11/22 Unknown Rx 1,000 UNIT TAB] Dexamethasone [Decadron] 6 mg PO QDAY 5 Days #5 tab 01/11/22 Unknown Rx Metoprolol [Lopressor TAB] 25 mg PO Q8HR 30 Days #90 tablet 01/11/22 Unknown Rx Zinc Sulfate 220 mg PO BID capsule 01/11/22 Unknown Rx polyethylene glycoL 3350 [Miralax 17 gm PO QDAY powd.pack 01/11/22 Unknown Rx 3350] Active Meds: Active Medications Acetaminophen (Acetaminophen 325 Mg Tab) 650 mg PO Q4H PRN PRN Reason: Pain MILD(1-3)/Fever >100.5/FERRARI Dextrose (Dextrose 50% In Water (25gm) 50 Ml Syringe) 50 ml IV Q30MIN PRN; Protocol PRN Reason: Hypoglycemia Heparin Sodium (Porcine) (Heparin 5,000 Unit/1 Ml Vial) 5,000 unit SUB-Q Q8HR CONNIE Sodium Chloride (Nacl 0.9% 1000 Ml) 1,000 mls @ 125 mls/hr IV DIRECT CONNIE Last Admin: 01/12/22 08:29 Dose: 125 mls/hr Cefepime HCl (Cefepime/Ns 2 Gm/100 Ml) 2 gm in 100 mls @ 200 mls/hr IV Q12H CONNIE; Protocol Last Admin: 01/12/22 04:50 Dose: 200 mls/hr Vancomycin HCl (Vancomycin/Ns 1 Gm/250 Ml) 1 gm in 250 mls @ 166.667 mls/hr IV Q24H CONNIE Insulin Human Lispro (Insulin Lispro 100 Unit/Ml) 0 unit SUB-Q ACHS CONNIE; Protocol Last Admin: 01/12/22 07:45 Dose: Not Given Magnesium Hydroxide (Magnesium Hydroxide (Mom) Oral Liqd Udc) 30 ml PO Q4H PRN PRN Reason: Constipation Morphine Sulfate (Morphine 2 Mg/1 Ml Inj) 2 mg IV Q4H PRN PRN Reason: Pain, Moderate (4-6) Morphine Sulfate (Morphine 4 Mg/1 Ml Inj) 4 mg IV Q4H PRN PRN Reason: Pain , Severe (7-10) Ondansetron HCl (Ondansetron 4 Mg/2 Ml Inj) 4 mg IV Q8H PRN PRN Reason: Nausea And Vomiting Sodium Chloride (Sodium Chloride 0.9% 10 Ml Flush Syringe) 10 ml IV BID CONNIE Sodium Chloride (Sodium Chloride 0.9% 10 Ml Flush Syringe) 10 ml IV PRN PRN PRN Reason: LINE FLUSH Physical Examination - Physical Exam Narrative exam: Physical Exam: Constitutional: Drowsy, can be awakened, doesn't follow commands Head, Ears, Nose: Normocephalic, atraumatic. External ears, nose normal Eyes: Conjunctivae/corneas clear. No icterus. No ptosis. Neck: Supple, no meningeal signs Oral: edentulous Cardiovascular: S1, S2 + Respiratory: clear b/l GI: Soft, non-tender; bowel sounds normal. No peritoneal signs Musculoskeletal: No pedal edema, no cyanosis. Skin: No rash or abscess Hem/Lymphatic: No palpable cervical or supraclavicular nodes. No lymphangitis Psych: Calm, no agitation Neurological: Drowsy - Constitutional Vitals: Vital Signs Temp Pulse Resp BP Pulse Ox 99.9 F H 103 H 25 H 163/93 100 01/11/22 20:49 01/12/22 06:01 01/12/22 06:01 01/12/22 06:01 01/12/22 01:31 Temperature -Last 24 Hours Temperature 99.9 F Results - Labs CBC & Chem 7: 01/11/22 21:41 01/12/22 10:47 Labs: Abnormal lab results 01/11/22 01/11/22 01/11/22 Range/Units 21:41 21:41 21:41 WBC 15.2 H (4.5-11.0) K/mm3 RDW 20.6 H (13.2-15.2) % Plt Count 450 H (140-440) K/mm3 Seg Neuts % (Manual) 91.0 H (40.0-70.0) % Lymphocytes % (Manual) 6.0 L (13.4-35.0) % Seg Neutrophils # Man 13.8 H (1.8-7.7) K/mm3 Lymphocytes # (Manual) 0.9 L (1.2-5.4) K/mm3 D-Dimer 1128.67 H (0-234) ng/mlDDU BUN 25 H (7-17) mg/dL Glucose 207 H (65-100) mg/dL POC Glucose (70-105) mg/dL Lactic Acid (0.7-2.0) mmol/L Ferritin (10.0-200.0) ng/mL CK-MB (CK-2) Rel Index (0-4) Troponin T (0.00-0.029) ng/mL 01/11/22 01/11/22 01/12/22 Range/Units 21:41 23:30 00:35 WBC (4.5-11.0) K/mm3 RDW (13.2-15.2) % Plt Count (140-440) K/mm3 Seg Neuts % (Manual) (40.0-70.0) % Lymphocytes % (Manual) (13.4-35.0) % Seg Neutrophils # Man (1.8-7.7) K/mm3 Lymphocytes # (Manual) (1.2-5.4) K/mm3 D-Dimer (0-234) ng/mlDDU BUN (7-17) mg/dL Glucose (65-100) mg/dL POC Glucose (70-105) mg/dL Lactic Acid 2.10 H* 2.20 H* (0.7-2.0) mmol/L Ferritin (10.0-200.0) ng/mL CK-MB (CK-2) Rel Index 9.0 H (0-4) Troponin T 0.091 H (0.00-0.029) ng/mL 01/12/22 01/12/22 01/12/22 Range/Units 00:35 07:43 10:47 WBC (4.5-11.0) K/mm3 RDW (13.2-15.2) % Plt Count (140-440) K/mm3 Seg Neuts % (Manual) (40.0-70.0) % Lymphocytes % (Manual) (13.4-35.0) % Seg Neutrophils # Man (1.8-7.7) K/mm3 Lymphocytes # (Manual) (1.2-5.4) K/mm3 D-Dimer (0-234) ng/mlDDU BUN (7-17) mg/dL Glucose (65-100) mg/dL POC Glucose 112 H (70-105) mg/dL Lactic Acid (0.7-2.0) mmol/L Ferritin 630.6 H (10.0-200.0) ng/mL CK-MB (CK-2) Rel Index (0-4) Troponin T 0.105 H* (0.00-0.029) ng/mL - Imaging and Cardiology Chest x-ray: report reviewed, image reviewed (multifocal pna) Assessment and Plan Cultures: 01/12/2022 COVID-19 PCR: Negative A/P: 86-year-old female with seizure disorder, prior CVA, hypertension, dementia, [facility] resident admitted with worsening shortness of breath" #Sepsis, secondary to bilateral pneumonia: care home resident. Possibility of aspiration also exists. Check UA. #Acute hypoxic respiratory failure: Secondary to pneumonia. #Dementia #Elevated troponin #Reactive thrombocytosis: likely secondary to sepsis Recs: -No blood cultures done -empiric cefepime, vancomycin, target vancomycin trough between 10 to 15 mcg/mL -MRSA nasal PCR ordered, if negative, discontinue vancomycin -Follow-up RERE Terry MD, FACP, [facility] ([facility] O: [phone] F: [phone] C: [phone]
[2022-01-12 11:48] LABS: C-Reactive Protein 12.6 mg/dL (0.00-1.30)
[2022-01-12] MEDS ORDERED: SIMPLE SYRUP 15 ML FEEDTUBE PRN ×2 (12:35)
[2022-01-12] MEDS ORDERED: SODIUM BICARBONATE 325 MG TAB FEEDTUBE PRN (12:35)
[2022-01-12] MEDS ORDERED: LIPASE 10,500/PROTEASE 25,000/AMYLASE 43,750 (UNITS) DR CAP FEEDTUBE PRN (12:35)
[2022-01-12] MEDS: HEPARIN 5,000 UNIT/1 ML VIAL SUB-Q SCH ×3 (13:55→23:16)
[2022-01-12 20:53] LABS: Chol/HDL Ratio 2.04 %
[2022-01-12] MEDS: VANCOMYCIN/NS 1 GM/250 ML 1 GM/250 ML BAG IV SCH (23:15)
[2022-01-13] MEDS: CEFEPIME/NS 2 GM/100 ML 2 GM/100 ML BAG IV SCH ×2 (03:45→13:05)
[2022-01-13] MEDS: HEPARIN 5,000 UNIT/1 ML VIAL SUB-Q SCH ×3 (05:30→22:20)
[2022-01-13] MEDS: SODIUM CHLORIDE 0.9% 1000 ML 1,000 ML IV SCH ×3 (05:39→17:47)
[2022-01-13 07:11] LABS: Hematocrit 30.7 % (30.3-42.9); Hemoglobin 9.8 gm/dl (10.1-14.3); Mean Corpuscular HGB Conc 32 % (30-34); Mean Corpuscular Volume 82 fl (79-97); Platelet Count 428 K/mm3 (140-440); Red Blood Count 3.72 M/mm3 (3.65-5.03)
[2022-01-13 07:25] LABS: Blood Urea Nitrogen 14 mg/dL (7-17); Calcium 9.5 mg/dL (8.4-10.2); Hemolysis Index 3
[2022-01-13 07:26] LABS: BUN/Creatinine Ratio 28
[2022-01-13 07:29] LABS: Red Cell Distribution Width 20.6 % (13.2-15.2)
[2022-01-13] MEDS: INSULIN LISPRO 100 UNIT/ML SUB-Q SCH ×3 (07:56→18:12)
--- NOTE | 2022-01-13 08:24 | Progress Note ---
Assessment and Plan Acute hypoxic respiratory failure: Secondary to pneumonia. Multifocal pneumonia Sepsis Dementia Elevated troponin Reactive thrombocytosis: Elevated D-dimer Elevated troponin-possibly demand ischemia -Continue to titrate supplemental oxygen to keep SpO2 90-92% -Antibiotics for HACP- Cefepime and Vancomycin per ID De-escalate based on culture data and clinical response -Conservative fluid management as tolerated by blood pressure and renal function -VTE prophylaxis -Aspiration precautions, HOB >30 -Bronchodilators prn -Continue enteric nutritional support -ABG, CXR as clinically indicated -Avoid delirium, maintain sleep-wake cycle. Patient has baseline dementia and is at risk for delirium -Mobility, off loading and frequent turning per hospital protocol to prevent pressure ulcers -Influenza and pneumonia vaccination per protocol -Chronic home medications as clinically indicated All other care -per Attending and other guidance consultant physicians Subjective Date of service: 01/13/22 Interval history: Follow up for: acute hypoxic resp failure; multifocal pneumonia; Sepsis Seen and examined. Vitals, labs, medications, chart and imaging reviewed. No acute overnight events reported. Discussed with nursing and respiratory staff. No fevers, she is on supplemental oxygen at 2L/min, slow speech Objective - Exam Narrative Exam: General appearance: Present: no acute distress, mild distress - EENT Eyes: Present: PERRL, EOM intact. Absent: scleral icterus ENT: hearing intact, clear oral mucosa, dentition normal - Neck Neck: Present: supple, normal ROM - Respiratory Respiratory effort: normal Respiratory: bilateral: diminished - Cardiovascular Rhythm: regular Heart Sounds: Present: S1 & S2. Absent: gallop, systolic murmur, diastolic murmur, rub, click - Extremities Extremities: no ischemia, pulses intact, pulses symmetrical, No edema, normal temperature, normal color, Full ROM Peripheral Pulses: within normal limits - Abdominal General gastrointestinal: Present: soft, non-tender, non-distended, normal bowel sounds, other (Peg tube in place). Absent: mass - Integumentary Integumentary: Present: clear, warm, dry, normal turgor. Absent: rash - Musculoskeletal Musculoskeletal: strength equal bilaterally - Psychiatric Psychiatric: cooperative - Neurologic Neurologic: No focal deficits, moves all extremities Vital Signs - 12hr 01/12/22 01/12/22 01/13/22 22:00 22:54 00:00 Temperature 98.6 F Pulse Rate 98 H 97 H Respiratory 20 Rate Blood Pressure 142/90 Blood Pressure [Right] O2 Sat by Pulse 96 100 96 Oximetry 01/13/22 01/13/22 01/13/22 00:23 05:00 05:43 Temperature 98.6 F 97.6 F Pulse Rate 98 H 92 H Respiratory 18 20 Rate Blood Pressure 160/85 Blood Pressure 134/79 [Right] O2 Sat by Pulse 100 100 Oximetry CBC and BMP: 01/15/22 04:13 01/15/22 04:13 ABG, PT/INR, D-dimer: PT/INR, D-dimer PT 14.3 Sec. (12.2-14.9) 01/11/22 21:41 INR 1.00 (0.87-1.13) 01/11/22 21:41 D-Dimer 1304.06 ng/mlDDU (0-234) H 01/12/22 10:47 Abnormal lab findings: Abnormal Labs 01/11/22 01/11/22 01/11/22 21:41 21:41 21:41 WBC 15.2 H Hgb MCH RDW 20.6 H Plt Count 450 H Seg Neuts % (Manual) 91.0 H Lymphocytes % (Manual) 6.0 L Seg Neutrophils # Man 13.8 H Lymphocytes # (Manual) 0.9 L D-Dimer 1128.67 H Potassium BUN 25 H Creatinine Glucose 207 H POC Glucose Lactic Acid Ferritin Lactate Dehydrogenase CK-MB (CK-2) Rel Index Troponin T C-Reactive Protein LDL Cholesterol Direct 01/11/22 01/11/22 01/12/22 21:41 23:30 00:35 WBC Hgb MCH RDW Plt Count Seg Neuts % (Manual) Lymphocytes % (Manual) Seg Neutrophils # Man Lymphocytes # (Manual) D-Dimer Potassium BUN Creatinine Glucose POC Glucose Lactic Acid 2.10 H* 2.20 H* Ferritin Lactate Dehydrogenase CK-MB (CK-2) Rel Index 9.0 H Troponin T 0.091 H C-Reactive Protein LDL Cholesterol Direct 01/12/22 01/12/22 01/12/22 00:35 07:43 10:47 WBC Hgb MCH RDW Plt Count Seg Neuts % (Manual) Lymphocytes % (Manual) Seg Neutrophils # Man Lymphocytes # (Manual) D-Dimer 1304.06 H Potassium BUN Creatinine Glucose POC Glucose 112 H Lactic Acid Ferritin Lactate Dehydrogenase CK-MB (CK-2) Rel Index Troponin T 0.105 H* C-Reactive Protein LDL Cholesterol Direct 01/12/22 01/12/22 01/12/22 10:47 10:47 12:42 WBC Hgb MCH RDW Plt Count Seg Neuts % (Manual) Lymphocytes % (Manual) Seg Neutrophils # Man Lymphocytes # (Manual) D-Dimer Potassium BUN Creatinine Glucose 121 H POC Glucose 116 H Lactic Acid Ferritin 630.6 H Lactate Dehydrogenase 206 H CK-MB (CK-2) Rel Index Troponin T C-Reactive Protein 12.60 H LDL Cholesterol Direct 01/12/22 01/12/22 01/12/22 16:06 19:04 22:50 WBC Hgb MCH RDW Plt Count Seg Neuts % (Manual) Lymphocytes % (Manual) Seg Neutrophils # Man Lymphocytes # (Manual) D-Dimer Potassium BUN Creatinine Glucose POC Glucose 111 H 108 H Lactic Acid Ferritin Lactate Dehydrogenase CK-MB (CK-2) Rel Index Troponin T 0.055 H D C-Reactive Protein LDL Cholesterol Direct 26 L 01/13/22 01/13/22 01/13/22 05:47 06:48 06:48 WBC Hgb 9.8 L MCH 26 L RDW 20.6 H Plt Count Seg Neuts % (Manual) Lymphocytes % (Manual) Seg Neutrophils # Man Lymphocytes # (Manual) D-Dimer Potassium 2.7 L* D BUN Creatinine 0.5 L Glucose 128 H POC Glucose 118 H Lactic Acid Ferritin Lactate Dehydrogenase CK-MB (CK-2) Rel Index Troponin T C-Reactive Protein LDL Cholesterol Direct Chest x-ray: image reviewed CT scan - chest: image reviewed Allied health notes reviewed: RT
[2022-01-13] MEDS ORDERED: POTASSIUM CHLORIDE ER 20 MEQ TAB PO NR ×2 (10:00→20:00)
[2022-01-13] MEDS ORDERED: POTASSIUM CHLORIDE 20 MEQ PACKET FEEDTUBE NR ×3 (10:00→20:00)
[2022-01-13 10:44] LABS: Band Neutrophils # (Manual) 0.1 K/mm3; Basophils % (Manual) 0 % (0.0-1.8); Total Cells Counted 100
[2022-01-13 10:48] LABS: Anisocytosis 1+; Hypochromasia 1+; Macrocytosis Rare; Poikilocytosis 1+; Stomatocytes Rare; Target Cells Rare
[2022-01-13 10:49] LABS: Ovalocytes Rare; Platelet Estimate Consistent w Auto
--- NOTE | 2022-01-13 11:16 | Progress Note ---
Assessment and Plan Assessment and plan: 86-year-old female [facility] with PMH of seizure disorder, prior CVA, hypertension, dementia with admitted for dyspnea. Patient had a chest x- ray and CTA that revealed multifocal pneumonia. No PE. Patient was noted to have leukocytosis with WBC 15.2 and lactate of 2.2. Sepsis. Bilateral pneumonia. COVID PCR negative Hypokalemia Dementia. Elevated troponin. Reactive thrombocytosis. Hypertension Seizure disorder History CVA 01/13/2022. ID started empiric antibiotics of cefepime and vancomycin. We will follow-up blood cultures. Replete potassium and check magnesium. Follow-up BMP in a.m. History Interval history: No new issues overnight Hospitalist Physical - Constitutional Vitals: Temp Pulse Resp BP Pulse Ox 97.6 F 92 H 20 134/79 100 01/13/22 05:00 01/13/22 05:43 01/13/22 05:00 01/13/22 05:00 01/13/22 05:43 General appearance: Present: no acute distress, mild distress - EENT Eyes: Present: PERRL, EOM intact ENT: hearing intact, clear oral mucosa, dentition normal - Neck Neck: Present: supple, normal ROM - Respiratory Respiratory effort: normal Respiratory: bilateral: CTA - Cardiovascular Rhythm: regular Heart Sounds: Present: S1 & S2. Absent: gallop, rub - Extremities Extremities: no ischemia, No edema, Full ROM - Abdominal General gastrointestinal: soft, non-tender, non-distended, normal bowel sounds - Integumentary Integumentary: Present: clear, warm, dry - Neurologic Neurologic: CNII-XII intact, moves all extremities HEART Score - HEART Score Troponin: Troponin T 0.055 ng/mL (0.00-0.029) H D 01/12/22 19:04 Results - Labs CBC & Chem 7: 01/13/22 06:48 01/13/22 06:48 Labs: Laboratory Last Values WBC 8.2 K/mm3 (4.5-11.0) 01/13/22 06:48 RBC 3.72 M/mm3 (3.65-5.03) 01/13/22 06:48 Hgb 9.8 gm/dl (10.1-14.3) L 01/13/22 06:48 Hct 30.7 % (30.3-42.9) 01/13/22 06:48 MCV 82 fl (79-97) 01/13/22 06:48 MCH 26 pg (28-32) L 01/13/22 06:48 MCHC 32 % (30-34) 01/13/22 06:48 RDW 20.6 % (13.2-15.2) H 01/13/22 06:48 Plt Count 428 K/mm3 (140-440) 01/13/22 06:48 Add Manual Diff Complete 01/13/22 06:48 Total Counted 100 01/13/22 06:48 Seg Neuts % (Manual) 77.0 % (40.0-70.0) H 01/13/22 06:48 Band Neutrophils % 1.0 % 01/13/22 06:48 Lymphocytes % (Manual) 9.0 % (13.4-35.0) L 01/13/22 06:48 Reactive Lymphs % (Man) 0 % 01/13/22 06:48 Monocytes % (Manual) 4.0 % (0.0-7.3) 01/13/22 06:48 Eosinophils % (Manual) 7.0 % (0.0-4.3) H 01/13/22 06:48 Basophils % (Manual) 0 % (0.0-1.8) 01/13/22 06:48 Metamyelocytes % 2.0 % 01/13/22 06:48 Myelocytes % 0 % 01/13/22 06:48 Promyelocytes % 0 % 01/13/22 06:48 Blast Cells % 0 % 01/13/22 06:48 Nucleated RBC % 1.0 % (0.0-0.9) H 01/13/22 06:48 Seg Neutrophils # Man 6.3 K/mm3 (1.8-7.7) 01/13/22 06:48 Band Neutrophils # 0.1 K/mm3 01/13/22 06:48 Lymphocytes # (Manual) 0.7 K/mm3 (1.2-5.4) L 01/13/22 06:48 Abs React Lymphs (Man) 0.0 K/mm3 01/13/22 06:48 Monocytes # (Manual) 0.3 K/mm3 (0.0-0.8) 01/13/22 06:48 Eosinophils # (Manual) 0.6 K/mm3 (0.0-0.4) H 01/13/22 06:48 Basophils # (Manual) 0.0 K/mm3 (0.0-0.1) 01/13/22 06:48 Metamyelocytes # 0.2 K/mm3 01/13/22 06:48 Myelocytes # 0.0 K/mm3 01/13/22 06:48 Promyelocytes # 0.0 K/mm3 01/13/22 06:48 Blast Cells # 0.0 K/mm3 01/13/22 06:48 WBC Morphology Not Reportable 01/13/22 06:48 Hypersegmented Neuts Not Reportable 01/13/22 06:48 Hyposegmented Neuts Rare 01/13/22 06:48 Hypogranular Neuts Not Reportable 01/13/22 06:48 Smudge Cells Not Reportable 01/13/22 06:48 Toxic Granulation Not Reportable 01/13/22 06:48 Toxic Vacuolation Not Reportable 01/13/22 06:48 Dohle Bodies Not Reportable 01/13/22 06:48 Pelger-Huet Anomaly Not Reportable 01/13/22 06:48 Marina Rods Not Reportable 01/13/22 06:48 Platelet Estimate Consistent w auto 01/13/22 06:48 Clumped Platelets Not Reportable 01/13/22 06:48 Plt Clumps, EDTA Not Reportable 01/13/22 06:48 Large Platelets Not Reportable 01/13/22 06:48 Giant Platelets Not Reportable 01/13/22 06:48 Platelet Satelliting Not Reportable 01/13/22 06:48 Plt Morphology Comment Not Reportable 01/13/22 06:48 RBC Morphology Not Reportable 01/13/22 06:48 Dimorphic RBCs Not Reportable 01/13/22 06:48 Polychromasia Not Reportable 01/13/22 06:48 Hypochromasia 1+ 01/13/22 06:48 Poikilocytosis 1+ 01/13/22 06:48 Anisocytosis 1+ 01/13/22 06:48 Microcytosis 1+ 01/13/22 06:48 Macrocytosis Rare 01/13/22 06:48 Spherocytes Not Reportable 01/13/22 06:48 Pappenheimer Bodies Not Reportable 01/13/22 06:48 Sickle Cells Not Reportable 01/13/22 06:48 Target Cells Rare 01/13/22 06:48 Tear Drop Cells Not Reportable 01/13/22 06:48 Ovalocytes Rare 01/13/22 06:48 Stomatocytes Rare 01/13/22 06:48 Helmet Cells Not Reportable 01/13/22 06:48 [place] Bodies Not Reportable 01/13/22 06:48 [place] Rings Not Reportable 01/13/22 06:48 Deonte Cells Not Reportable 01/13/22 06:48 Bite Cells Not Reportable 01/13/22 06:48 Crenated Cell Not Reportable 01/13/22 06:48 Elliptocytes Not Reportable 01/13/22 06:48 Acanthocytes (Spur) Rare 01/13/22 06:48 Rouleaux Not Reportable 01/13/22 06:48 Hemoglobin C Crystals Not Reportable 01/13/22 06:48 Schistocytes Not Reportable 01/13/22 06:48 Malaria parasites Not Reportable 01/13/22 06:48 Kevin Bodies Not Reportable 01/13/22 06:48 Hem Pathologist Commnt No 01/13/22 06:48 PT 14.3 Sec. (12.2-14.9) 01/11/22 21:41 INR 1.00 (0.87-1.13) 01/11/22 21:41 APTT 24.7 Sec. (24.2-36.6) 01/11/22 21:41 D-Dimer 1304.06 ng/mlDDU (0-234) H 01/12/22 10:47 Sodium 144 mmol/L (137-145) 01/13/22 06:48 Potassium 2.7 mmol/L (3.6-5.0) L* D 01/13/22 06:48 Chloride 106.9 mmol/L (98-107) 01/13/22 06:48 Carbon Dioxide 26 mmol/L (22-30) 01/13/22 06:48 Anion Gap 14 mmol/L 01/13/22 06:48 BUN 14 mg/dL (7-17) 01/13/22 06:48 Creatinine 0.5 mg/dL (0.6-1.2) L 01/13/22 06:48 Estimated GFR > 60 ml/min 01/13/22 06:48 BUN/Creatinine Ratio 28 % 01/13/22 06:48 Glucose 128 mg/dL (65-100) H 01/13/22 06:48 POC Glucose 130 mg/dL (70-105) H 01/13/22 08:13 Lactic Acid 2.20 mmol/L (0.7-2.0) H* 01/12/22 00:35 Calcium 9.5 mg/dL (8.4-10.2) 01/13/22 06:48 Ferritin 630.6 ng/mL (10.0-200.0) H 01/12/22 10:47 Total Bilirubin 0.20 mg/dL (0.1-1.2) 01/11/22 21:41 AST 11 units/L (5-40) 01/11/22 21:41 ALT 13 units/L (7-56) 01/11/22 21:41 Alkaline Phosphatase 79 units/L (35-129) 01/11/22 21:41 Lactate Dehydrogenase 206 units/L (91-180) H 01/12/22 10:47 Total Creatine Kinase 30 units/L (30-135) 01/11/22 21:41 CK-MB (CK-2) 2.7 ng/mL (0.0-4.0) 01/11/22 21:41 CK-MB (CK-2) Rel Index 9.0 (0-4) H 01/11/22 21:41 Troponin T 0.055 ng/mL (0.00-0.029) H D 01/12/22 19:04 C-Reactive Protein 12.60 mg/dL (0.00-1.30) H 01/12/22 10:47 Total Protein 7.6 g/dL (6.3-8.2) 01/11/22 21:41 Albumin 4.0 g/dL (3.9-5) 01/11/22 21:41 Albumin/Globulin Ratio 1.1 % 01/11/22 21:41 Triglycerides 128 mg/dL (2-149) 01/12/22 19:04 Cholesterol 96 mg/dL (50-199) 01/12/22 19:04 LDL Cholesterol Direct 26 mg/dL (50-130) L 01/12/22 19:04 HDL Cholesterol 47 mg/dL (40-59) 01/12/22 19:04 Cholesterol/HDL Ratio 2.04 % 01/12/22 19:04 Procalcitonin 9.47 ng/mL (<0.15) 01/12/22 10:47 SARS-CoV-2 (PCR) Negative (Negative) 01/12/22 09:11 Rosales/IV: Voiding Method External Female Catheter Active Medications - Current Medications Current Medications: Generic Name Dose Route Start Last Admin Trade Name Freq PRN Reason Stop Dose Admin Acetaminophen 650 mg 01/12/22 00:52 Acetaminophen 325 Mg Tab PO Q4H PRN Pain MILD(1-3)/Fever >100.5/FERRARI Lipase/Protease/Amylase 1 each 01/12/22 12:35 Lipase 10,500/Protease 25,000/Amylase 43,750 (Units) Cap FEEDTUBE PRN PRN For Clogged Feeding Tube Dextrose 50 ml 01/12/22 00:52 Dextrose 50% In Water (25gm) 50 Ml Syringe IV Q30MIN PRN Hypoglycemia Protocol Heparin Sodium (Porcine) 5,000 unit 01/12/22 06:00 01/13/22 05:30 Heparin 5,000 Unit/1 Ml Vial SUB-Q 5,000 unit Q8HR CONNIE Administration Sodium Chloride 1,000 mls @ 125 mls/hr 01/12/22 01:00 01/13/22 07:59 Nacl 0.9% 1000 Ml IV 125 mls/hr DIRECT CONNIE Administration Cefepime HCl 2 gm in 100 mls @ 200 mls/hr 01/12/22 02:00 01/13/22 03:45 Cefepime/Ns 2 Gm/100 Ml IV 200 mls/hr Q12H CONNIE Administration Protocol Vancomycin HCl 1 gm in 250 mls @ 166.667 mls/hr 01/13/22 00:00 01/12/22 23:15 Vancomycin/Ns 1 Gm/250 Ml IV 166.667 mls/hr Q24H CONNIE Administration Insulin Human Lispro 0 unit 01/13/22 12:00 Insulin Lispro 100 Unit/Ml SUB-Q Q6HR CONNIE Protocol Magnesium Hydroxide 30 ml 01/12/22 00:52 Magnesium Hydroxide (Mom) Oral Liqd Udc PO Q4H PRN Constipation Morphine Sulfate 2 mg 01/12/22 00:52 Morphine 2 Mg/1 Ml Inj IV Q4H PRN Pain, Moderate (4-6) Morphine Sulfate 4 mg 01/12/22 00:52 Morphine 4 Mg/1 Ml Inj IV Q4H PRN Pain , Severe (7-10) Ondansetron HCl 4 mg 01/12/22 00:52 Ondansetron 4 Mg/2 Ml Inj IV Q8H PRN Nausea And Vomiting Potassium Chloride 40 meq 01/13/22 10:00 Potassium Chloride 20 Meq Packet FEEDTUBE 01/13/22 12:00 ONCE@1000 NR Potassium Chloride 40 meq 01/13/22 14:00 Potassium Chloride 20 Meq Packet FEEDTUBE 01/13/22 16:00 ONCE@1400 NR Potassium Chloride 40 meq 01/13/22 20:00 Potassium Chloride 20 Meq Packet FEEDTUBE 01/13/22 23:00 ONCE@2000 NR Simple Syrup 15 ml 01/12/22 12:35 Simple Syrup 15 Ml FEEDTUBE PRN PRN Hypoglycemia Simple Syrup 30 ml 01/12/22 12:35 Simple Syrup 15 Ml FEEDTUBE PRN PRN Hypoglycemia Sodium Bicarbonate 325 mg 01/12/22 12:35 Sodium Bicarbonate 325 Mg Tab FEEDTUBE PRN PRN For Clogged Feeding Tube Sodium Chloride 10 ml 01/12/22 10:00 01/13/22 09:11 Sodium Chloride 0.9% 10 Ml Flush Syringe IV 10 ml BID CONNIE Administration Sodium Chloride 10 ml 01/12/22 00:52 Sodium Chloride 0.9% 10 Ml Flush Syringe IV PRN PRN LINE FLUSH Nutrition/Malnutrition Assess - Dietary Evaluation Nutrition/Malnutrition Findings: Nutrition Notes Start: 01/12/22 12:03 Freq: Status: Active Protocol: Document 01/12/22 12:03 CARMEN (Rec: 01/12/22 12:40 CARMEN [id number]) Nutrition Notes Need for Assessment generated from: MD Order Initial or Follow up Assessment Current Diagnosis Diabetes,Sepsis,Hypertension, Stroke,Hyperlipidemia Other Pertinent Diagnosis Seizure, Pneumonia, GRED, Dementia. Current Diet TF-Glucerna 1.2 Sarbjit @ 50 ml/hr (from D 01/12). Labs/Tests 01/12: BUN 25, Glu 207. Pertinent Medications 01/12: Nutritionally unremarkable. Height 5 ft 4 in Weight 72.575 kg Kelly Body Weight (kg) 54.54 BMI 27.4 Weight change and time frame None provided at admission. Last visit on 12/24/21, Pt's anthropometrics were: Ht 5'6", Wt 65 Kg, BMI 23.1 Kg/m2. Significant dicrepancy noted. I was not able to contact RN over the phone to verify data. Weight Status Overweight Subjective/Other Information RD consult for write/manage TF . Pt has a PEG tube poa. I will Prescribe and Order TF. Pt is on Room Air, O2 saturation @ 100%, according to Vital Signs note. Pt lives on a SNF, according to [facility] Physical notes. No further information available on the chart to perform a full assessment, will complete it at F/U. Percent of energy/protein needs met: Prescribed TF-Glucerna 1.2 Sarbjit @ 50 ml/hr provides for energy/protein needs (1,450 Kcal/73 g) during LOS, 95% Kcal; 100% AA. GI Symptoms Other Food Allergy No Current % PO Other #1 Nutrition Diagnosis Altered GI function Etiology Uncertain. As Evidenced by Signs and Symptoms Pt has a PEG tube poa, and currently on NPO. Is patient on ventilator? No Is Patient Ambulatory and/or Out of Bed No REE-([facility]-confined to bed) 1400.088 Kcal/Kg value to use for calculation 21 Approximate Energy Requirements Using 1524 kcal/Kg Calculation Used for Recommendations Kcal/kg Additional Notes Protein: 1-1.2 g/Kg ABW; 73-88 g/day. Fluids: 1 ml/Kcal, or as per MD. Nutrition Intervention Nutrition Support: Start TF-Glucerna 1.2 Sarbjit @ 50 ml/hr. Flush: 100 ml water Q 4 hr, or as per MD. Kcal 1,450 Protein (gm) 73 Carbohydrates (gm) 138 Fat (gm) 73 Fluid (mL) 973 Fiber (gm) 19 % RDI: 95% Kcal; 100% AA. Goal #1 Provide at least 75% of energy /protein needs through Enteral Feeding during LOS. Goal #2 Maintain body weight within +/ -3% of admission body weight during LOS. Follow-Up By: 01/14/22 Additional Comments Start monitoring TF tolerance and BM.
--- NOTE | 2022-01-13 11:23 | Consultation ---
History of Present Illness Consult date: 01/13/22 Consult reason: elevated troponin, tachycardia History of present illness: This patient is an 86-year-old woman, retirement resident, with advanced dementia and multiple other comorbidities. She was hospitalized here most of last week, with a diagnosis of bilateral pneumonia and a positive COVID status. During that hospitalization we performed a cardiology consultation where we noted diffuse nonspecific ST abnormalities, possible injury pattern, the patient was determined not a candidate for advanced and invasive cardiac therapies, instead was recommended for empiric coronary artery disease medical therapy. Left ventricular systolic function was normal at 55% on the previous echocardiogram 3 months ago. She was managed by the internal medicine service for her COVID-pneumonia, but is now readmitted just 1 day after her discharge to the retirement. On this presentation, she has recurrent shortness of breath, a low-grade fever of 99.9, leukocytosis of 15,000, and a chest x-ray shows a worsening, bilateral multi focal pneumonia. On this presentation, the COVID test is now negative. Cardiology consultation is requested on this presentation for assessment of sinus tachycardia and a borderline troponin elevation. The troponin level is 0.09, not significantly changed from a previous admission last week. The EKG is a sinus tachycardia at 112, with no ST or T wave changes of acute ischemia or infarction. On exam today, the patient is noncommunicative, frail, contracted, chronically ill-appearing, but no acute respiratory distress. Past History Past Medical History: arthritis, CAD, diabetes, GERD, hypertension, hyperlipidemia, seizures, stroke, other (Advanced dementia) Past Surgical History: Other (Feeding tube placement) Social history: other (Patient resides in the retirement) Family history: no significant family history Medications and Allergies Allergies Allergy/AdvReac Type Severity Reaction Status Date / Time No Known Allergies Allergy Verified 03/15/21 10:30 Home Medications Medication Instructions Recorded Confirmed Last Taken Type Ferrous Sulfate [Iron 325 MG] 325 mg PO DAILY 03/17/21 01/06/22 Unknown History Lovastatin [Altoprev] 40 mg PO DAILY 03/17/21 01/06/22 Unknown History allopurinoL [Zyloprim] 300 mg PO QDAY 03/17/21 01/06/22 Unknown History amLODIPine 10 mg PO DAILY 03/17/21 01/06/22 Unknown History Aspirin [Adult Aspirin] 81 mg PO DAILY #30 tablet. 03/22/21 01/06/22 Unknown Rx Linagliptin [Tradjenta] 5 mg PO QAMDIAB #30 tablet 03/22/21 01/06/22 Unknown Rx Insulin Glargine [Lantus VIAL] 10 units SUB-Q QHS #30 ml 11/04/21 01/06/22 Unk nown Rx Lacosamide [Vimpat] 100 mg PO Q12HR #60 tablet 11/04/21 01/06/22 Unknown Rx Lansoprazole Solutab [Prevacid 30 mg FEEDTUBE QDAY #30 tab.rapdis 11/04/21 01/06/22 Unknown Rx Solutab] Sennosides/Docusate [Senokot S] 2 tab FEEDTUBE BID #30 tablet 11/04/21 01/06/22 Unknown Rx levETIRAcetam [Keppra] 1,000 mg FEEDTUBE BID #600 ml 11/04/21 01/06/22 Unknown Rx traMADoL [Ultram 50 MG tab] 225 mg PO Q6HR #20 tab 11/04/21 01/06/22 Unknown Rx Ascorbic Acid [Vitamin C] 500 mg PO BID tablet 01/11/22 Unknown Rx Cholecalciferol Vit D3 [Vitamin D3 1,000 unit PO QDAY tablet 01/11/22 Unknown Rx 1,000 UNIT TAB] Dexamethasone [Decadron] 6 mg PO QDAY 5 Days #5 tab 01/11/22 Unknown Rx Metoprolol [Lopressor TAB] 25 mg PO Q8HR 30 Days #90 tablet 01/11/22 Unknown Rx Zinc Sulfate 220 mg PO BID capsule 01/11/22 Unknown Rx polyethylene glycoL 3350 [Miralax 17 gm PO QDAY powd.pack 01/11/22 Unknown Rx 3350] Active Meds: Active Medications Acetaminophen (Acetaminophen 325 Mg Tab) 650 mg PO Q4H PRN PRN Reason: Pain MILD(1-3)/Fever >100.5/FERRARI Lipase/Protease/Amylase (Lipase 10,500/Protease 25,000/Amylase 43,750 (Units) Dr Collier) 1 each FEEDTUBE PRN PRN PRN Reason: For Clogged Feeding Tube Dextrose (Dextrose 50% In Water (25gm) 50 Ml Syringe) 50 ml IV Q30MIN PRN; Protocol PRN Reason: Hypoglycemia Heparin Sodium (Porcine) (Heparin 5,000 Unit/1 Ml Vial) 5,000 unit SUB-Q Q8HR [facility] Last Admin: 01/13/22 05:30 Dose: 5,000 unit Sodium Chloride (Nacl 0.9% 1000 Ml) 1,000 mls @ 125 mls/hr IV DIRECT CONNIE Last Admin: 01/13/22 07:59 Dose: 125 mls/hr Cefepime HCl (Cefepime/Ns 2 Gm/100 Ml) 2 gm in 100 mls @ 200 mls/hr IV Q12H CONNIE; Protocol Last Admin: 01/13/22 03:45 Dose: 200 mls/hr Vancomycin HCl (Vancomycin/Ns 1 Gm/250 Ml) 1 gm in 250 mls @ 166.667 mls/hr IV Q24H CONNIE Last Admin: 01/12/22 23:15 Dose: 166.667 mls/hr Insulin Human Lispro (Insulin Lispro 100 Unit/Ml) 0 unit SUB-Q Q6HR CONNIE; Protocol Magnesium Hydroxide (Magnesium Hydroxide (Mom) Oral Liqd Udc) 30 ml PO Q4H PRN PRN Reason: Constipation Morphine Sulfate (Morphine 2 Mg/1 Ml Inj) 2 mg IV Q4H PRN PRN Reason: Pain, Moderate (4-6) Morphine Sulfate (Morphine 4 Mg/1 Ml Inj) 4 mg IV Q4H PRN PRN Reason: Pain , Severe (7-10) Ondansetron HCl (Ondansetron 4 Mg/2 Ml Inj) 4 mg IV Q8H PRN PRN Reason: Nausea And Vomiting Potassium Chloride (Potassium Chloride 20 Meq Packet) 40 meq FEEDTUBE ONCE@1000 NR Stop: 01/13/22 12:00 Potassium Chloride (Potassium Chloride 20 Meq Packet) 40 meq FEEDTUBE ONCE@1400 NR Stop: 01/13/22 16:00 Potassium Chloride (Potassium Chloride 20 Meq Packet) 40 meq FEEDTUBE ONCE@2000 NR Stop: 01/13/22 23:00 Simple Syrup (Simple Syrup 15 Ml) 15 ml FEEDTUBE PRN PRN PRN Reason: Hypoglycemia Simple Syrup (Simple Syrup 15 Ml) 30 ml FEEDTUBE PRN PRN PRN Reason: Hypoglycemia Sodium Bicarbonate (Sodium Bicarbonate 325 Mg Tab) 325 mg FEEDTUBE PRN PRN PRN Reason: For Clogged Feeding Tube Sodium Chloride (Sodium Chloride 0.9% 10 Ml Flush Syringe) 10 ml IV BID CONNIE Last Admin: 01/13/22 09:11 Dose: 10 ml Sodium Chloride (Sodium Chloride 0.9% 10 Ml Flush Syringe) 10 ml IV PRN PRN PRN Reason: LINE FLUSH Review of Systems ROS unobtainable: due to mental status Physical Examination Vital Signs Pulse Resp 126 H 22 01/11/22 20:31 01/11/22 20:31 General appearance: cachectic, other (Noncommunicative, frail, chronically ill- appearing, contracted) HEENT: Positive: PERRL Neck: Positive: neck supple Cardiac: Positive: Reg Rate and Rhythm Lungs: Positive: Decreased Breath Sounds Neuro: Positive: Weakness (Generalized lethargy) Abdomen: Positive: Soft Female genitourinary: deferred Skin: Positive: Clear Extremities: Absent: edema Results 01/13/22 06:48 01/13/22 06:48 Cardiac Enzymes 01/12/22 Range/Units 10:47 Lactate Dehydrogenase 206 H (91-180) units/L Lipids 01/12/22 Range/Units 19:04 Triglycerides 128 (2-149) mg/dL Cholesterol 96 (50-199) mg/dL HDL Cholesterol 47 (40-59) mg/dL Cholesterol/HDL Ratio 2.04 % CBC 01/13/22 Range/Units 06:48 WBC 8.2 (4.5-11.0) K/mm3 RBC 3.72 (3.65-5.03) M/mm3 Hgb 9.8 L (10.1-14.3) gm/dl Hct 30.7 (30.3-42.9) % Plt Count 428 (140-440) K/mm3 Comprehensive Metabolic Panel 01/12/22 01/13/22 Range/Units 10:47 06:48 Sodium 144 (137-145) mmol/L Potassium 2.7 L* D (3.6-5.0) mmol/L Chloride 106.9 (98-107) mmol/L Carbon Dioxide 26 (22-30) mmol/L BUN 14 (7-17) mg/dL Creatinine 0.5 L (0.6-1.2) mg/dL Glucose 121 H 128 H (65-100) mg/dL Calcium 9.5 (8.4-10.2) mg/dL EKG interpretations - Telemetry EKG Rhythm: Sinus Tachycardia (With no acute ST or T wave changes) Assessment and Plan Sinus tachycardia is a physiologic response to fever, multilobar pneumonia and sepsis. Sinus rate should trend towards baseline on optimal management of the pneumonia and sepsis. For the patient's history of coronary artery disease we will continue empiric m edical therapy including topical nitrates, beta-blockers and oral antiplatelet therapy.
--- NOTE | 2022-01-13 12:06 | Electrocardiograph Report ---
[facility] Test Date: 2022-01-11 Test Time: 22:35:59 Pat Name: DANY LOPEZ Department: Room: A373 Gender: F Clinical Haematologist: TERI : 1935 Requested By: ROB INFANTE Order Number: [id number] Reading MD: Josselyn Alexandra Measurements Intervals [place] Rate: 112 P: 53 ID: [id number] QRS: 23 QRSD: 74 T: 47 QT: 317 QTc: 433 Interpretive Statements Sinus tachycardia Compared to ECG 01/06/2022 06:50:20 No significant change Electronically Signed On 01-13-2022 12:05:37 EDT by Josselyn Alexandra
--- NOTE | 2022-01-13 13:42 | Progress Note ---
Assessment and Plan Cultures: 01/12/2022 COVID-19 PCR: Negative A/P: 86-year-old female with seizure disorder, prior CVA, hypertension, dementia, residential resident admitted with worsening shortness of breath" #Sepsis, secondary to bilateral pneumonia: halfway resident. Possibility of aspiration also exists. UA not done. 01/12/2022 procalcitonin 9.4. No blood cultures done. #Recent COVID-19 pneumonia: Recently discharged on 01/11/2022, completed remdesivir and received 10-day course of Decadron. #Acute hypoxic respiratory failure: Secondary to pneumonia. Stable to improving. #Dementia #Elevated troponin #Reactive thrombocytosis: likely secondary to sepsis Recs: -empiric cefepime, vancomycin, target vancomycin trough between 10 to 15 mcg/mL, complete 5 days -MRSA nasal PCR pending, if negative, discontinue vancomycin -Follow-up UA -if clinically improved, Cefepime can be switched to levofloxacin 500 mg daily to complete 5 days Joe Terry MD, FACP, [facility] ([facility] O: [phone] F: [phone] C: [phone] Subjective Date of service: 01/13/22 Interval history: Awake, poor historian. Does not respond as such. Weaned to nasal cannula. Objective - Exam Narrative Exam: Physical Exam: Constitutional: awake, doesn't follow commands Head, Ears, Nose: Normocephalic, atraumatic. External ears, nose normal Eyes: Conjunctivae/corneas clear. No icterus. No ptosis. Neck: Supple, no meningeal signs Oral: edentulous Cardiovascular: S1, S2 + Respiratory: clear b/l GI: Soft, non-tender; bowel sounds normal. No peritoneal signs Musculoskeletal: No pedal edema, no cyanosis. Skin: No rash or abscess Hem/Lymphatic: No palpable cervical or supraclavicular nodes. No lymphangitis Psych: Calm, no agitation Neurological: awake - Constitutional Vitals: Vital Signs Temp Pulse Resp BP Pulse Ox 97.6 F 92 H 20 134/79 100 01/13/22 05:00 01/13/22 05:43 01/13/22 05:00 01/13/22 05:00 06/09/22 05:43 Temperature -Last 24 Hours Temperature 97.6 F Temperature 98.6 F Temperature 98.6 F Temperature 98.4 F - Labs CBC & Chem 7: 01/13/22 06:48 01/13/22 06:48 Labs: Abnormal lab results 01/12/22 01/12/22 01/12/22 Range/Units 16:06 19:04 22:50 Hgb (10.1-14.3) gm/dl MCH (28-32) pg RDW (13.2-15.2) % Seg Neuts % (Manual) (40.0-70.0) % Lymphocytes % (Manual) (13.4-35.0) % Eosinophils % (Manual) (0.0-4.3) % Nucleated RBC % (0.0-0.9) % Lymphocytes # (Manual) (1.2-5.4) K/mm3 Eosinophils # (Manual) (0.0-0.4) K/mm3 Potassium (3.6-5.0) mmol/L Creatinine (0.6-1.2) mg/dL Glucose (65-100) mg/dL POC Glucose 111 H 108 H (70-105) mg/dL Troponin T 0.055 H D (0.00-0.029) ng/mL LDL Cholesterol Direct 26 L (50-130) mg/dL 01/13/22 01/13/22 01/13/22 Range/Units 05:47 06:48 06:48 Hgb 9.8 L (10.1-14.3) gm/dl MCH 26 L (28-32) pg RDW 20.6 H (13.2-15.2) % Seg Neuts % (Manual) 77.0 H (40.0-70.0) % Lymphocytes % (Manual) 9.0 L (13.4-35.0) % Eosinophils % (Manual) 7.0 H (0.0-4.3) % Nucleated RBC % 1.0 H (0.0-0.9) % Lymphocytes # (Manual) 0.7 L (1.2-5.4) K/mm3 Eosinophils # (Manual) 0.6 H (0.0-0.4) K/mm3 Potassium 2.7 L* D (3.6-5.0) mmol/L Creatinine 0.5 L (0.6-1.2) mg/dL Glucose 128 H (65-100) mg/dL POC Glucose 118 H (70-105) mg/dL Troponin T (0.00-0.029) ng/mL LDL Cholesterol Direct (50-130) mg/dL 01/13/22 01/13/22 Range/Units 08:13 12:33 Hgb (10.1-14.3) gm/dl MCH (28-32) pg RDW (13.2-15.2) % Seg Neuts % (Manual) (40.0-70.0) % Lymphocytes % (Manual) (13.4-35.0) % Eosinophils % (Manual) (0.0-4.3) % Nucleated RBC % (0.0-0.9) % Lymphocytes # (Manual) (1.2-5.4) K/mm3 Eosinophils # (Manual) (0.0-0.4) K/mm3 Potassium (3.6-5.0) mmol/L Creatinine (0.6-1.2) mg/dL Glucose (65-100) mg/dL POC Glucose 130 H 152 H (70-105) mg/dL Troponin T (0.00-0.029) ng/mL LDL Cholesterol Direct (50-130) mg/dL
--- NOTE | 2022-01-13 13:50 | Consultation ---
DATE OF CONSULTATION: 01/12/2022 PULMONARY CONSULT NOTE CONSULTING PHYSICIAN: Dr. Plummer. REASON FOR CONSULTATION: Pneumonia, sepsis, respiratory failure. CHIEF COMPLAINT AND HISTORY OF PRESENT ILLNESS: The patient is an 86-year-old female known to me from a recent admission at which time she suffered from an aspiration pneumonia, required intubation. She is now a long term resident with a history of seizure disorder. She was brought into the Emergency Room for evaluation of shortness of breath that had been going on for a few days. It was progressive. The patient was unable to give a history. In the ER, she was found to be in respiratory distress, initially placed on a nonrebreather mask. Workup in the Emergency Room revealed a leukocytosis and elevated serum troponins, and bilateral pulmonary infiltrates. CT angio was negative for pulmonary embolism. She was started on empiric IV antibiotics. We are asked to consult for pneumonia, essentially healthcare-associated pneumonia. When I stopped by to see her, she was resting in bed. She was not on any supplemental oxygen. Her breathing was nonlabored. She was alert, but unable to give me any history. I do not have any history of vomiting or overt aspiration, although I cannot rule that out. She does have a feeding tube and appears to have been getting tube feeds at the transfer center. The above is much of the history of presentation as I have except to say she is not a current tobacco abuser. PAST MEDICAL HISTORY: Again, significant for seizures, cerebrovascular accident, hypertension, history of dementia, history of diabetes, hyperlipidemia. PAST SURGICAL HISTORY: She has a percutaneous endoscopic gastrostomy tube. MEDICATIONS: She was on at the time I stopped by to see her, according to the medication administration record included the following: Tylenol 650 mg p.o. q. 4 hours p.r.n. mild pain or fevers, cefepime 2 grams IV q. 12 hours, heparin 5000 units subQ q. 8 hours, insulin via sliding scale, morphine sulfate 2 mg IV q. 4 hours p.r.n. moderate pain and 4 mg IV q. 4 hours p.r.n. severe pain, Zofran 4 mg IV q. 8 hours p.r.n. nausea and vomiting and vancomycin 1 gram IV daily. ALLERGIES: No known drug allergies. DIET: Well-built lady. Acute weight loss, again history is unknown. FAMILY AND SOCIAL HISTORY: detention resident. No current alcohol, tobacco or illicit drug use or abuse. FAMILY HISTORY: Otherwise unknown. REVIEW OF SYSTEMS: Unobtainable secondary to the patient's medical and mental condition. Since she has been here, no gross hematochezia or melena, no gross hematuria, no hematemesis, no hemoptysis, no witnessed seizures. Review of systems is otherwise unobtainable or as in the body of the history above. PHYSICAL EXAMINATION: VITAL SIGNS: At presentation here, she had a low-grade fever of 99.9 degrees Fahrenheit, pulse of 126, respiratory rate of 26, blood pressure 128/64, O2 sats 100% initially on 100% nonrebreather. GENERAL: She is an elderly and chronically ill-looking female, normocephalic, atraumatic. Resting in bed with mildly increased respiratory effort at rest. HEAD, EYES, EARS, NOSE AND THROAT: Anicteric. No conjunctival erythema. Oropharynx was dry. NECK: No gross jugular venous distention, no thyromegaly. Grossly, there were no palpable lymph nodes in the supraclavicular or submandibular lymph node chains. LUNGS: Auscultation of both lung murphy significant for diminished bilateral breath sounds. No active rales or rhonchi. No wheezing. HEART: Sounds 1 and 2 are heard at the time of my evaluation, regular rate and rhythm without overt rubs or murmurs. ABDOMEN: Soft, full, bowel sounds are positive, nontender, no palpable hepatosplenomegaly. It is protuberant. PEG tube is in place. EXTREMITIES: Without overt digital clubbing or cyanosis, no pedal edema. Pedal pulses are 2+ bilaterally. NEUROLOGIC: Pupils are equal, round, about 4 mm, reactive to light. Extraocular muscles and movements appeared intact. She had spontaneous movements really only to her right upper extremity and then that was minimal. She had contractures to both feet and contractures to the left upper extremity. SKIN: Very poor turgor without overt cellulitis. 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 Please see the wound care nurses' notes for full description of her skin. PSYCHIATRIC: Mood and affect were flat. She did not have intact judgment and insight or I should say she was unable to respond to my prompts. LABORATORY DATA: From my review are as follows: Admission white cell count 15,200, hemoglobin 10.4, hematocrit 30.5, platelet count 415. No band forms on the manual differential. D-dimer was elevated at 1128. Serum sodium was 142, potassium 4.1, chloride 104, bicarbonate 28, BUN 25, creatinine 0.6, glucose 206. Lactic acid level was 2.10. Liver function tests essentially within normal limits. Troponin was elevated at 0.091. It is up to 0.105. Coronavirus PCR negative. White cell count was normal on 01/10/2022. No microbiology data for my review. A chest x-ray was done; it shows bilateral infiltrates, right mid lung zones, really the whole right lung and left lower lobe regions in particular, also possible likely platelike atelectasis in the left lower lobe. Compared to a chest x-ray from 01/05/2022, about a week ago, the infiltrates appeared increased. A CT angio of her chest was also done, pretty decent contrast phase timing. Lung windows revealed patchy infiltrates involving mostly again the right and left lower lobes. There are areas of traction bronchiectasis involving both lungs, basilar predominant. No CT evidence of large filling defects consistent with pulmonary embolism, essentially bibasilar predominant pulmonary infiltrates/pneumonia consistent with aspiration. ASSESSMENT: 1. Acute hypoxemic respiratory failure at presentation. 2. Bilateral pneumonia. 3. Bronchiectasis. 4. History of diabetes. 5. History of cerebrovascular accident. 6. History of dementia. 7. Hypertension. 8. History of seizures. 9. Hyperlipidemia. 10. Non-ST elevation myocardial infarction. 11. Sepsis, presumed secondary to pneumonia. 12. Adult failure to thrive. 13. Oropharyngeal dysphagia. PLAN: I do agree with empiric antibiotic therapy to cover possible healthcare-associated pneumonia. I will defer ultimately to the infectious disease physician for deescalation of antibiotic therapy. Oxygen will be offered as necessary to keep sats greater than or equal to 90%. Strict aspiration precautions should be maintained. Head of bed greater than or equal to about 40 degrees. Continue enteral nutrition. She is appropriately on DVT prophylaxis with heparin. I will be putting her on GI prophylaxis with Pepcid. Acute coronary syndrome workup will be deferred to the Cardiology team. Flu and pneumonia vaccination will be addressed per protocol. Thank you very much for the consult. We will follow along and make further recommendations as picture progresses/becomes clearer. TID: [id number] RECEIPT: [id number] MARCUS/ELVA/SHIN/LIDA
[2022-01-13] MEDS ORDERED: POTASSIUM CHLORIDE ER 20 MEQ TAB PO ONE (14:00)
[2022-01-14] MEDS: VANCOMYCIN/NS 1 GM/250 ML 1 GM/250 ML BAG IV SCH ×2 (00:47→23:33)
[2022-01-14] MEDS: CEFEPIME/NS 2 GM/100 ML 2 GM/100 ML BAG IV SCH ×2 (02:00→13:16)
[2022-01-14] MEDS: SODIUM CHLORIDE 0.9% 1000 ML 1,000 ML IV SCH (06:42)
[2022-01-14] MEDS: HEPARIN 5,000 UNIT/1 ML VIAL SUB-Q SCH ×3 (06:47→23:15)
[2022-01-14] MEDS: INSULIN LISPRO 100 UNIT/ML SUB-Q SCH ×5 (07:46→23:00)
--- NOTE | 2022-01-14 09:04 | Progress Note ---
Assessment and Plan Cultures: 01/12/2022 COVID-19 PCR: Negative A/P: 86-year-old female with seizure disorder, prior CVA, hypertension, dementia, penitentiary resident admitted with worsening shortness of breath" #Sepsis, secondary to bilateral pneumonia: skilled nursing resident. Possibility of aspiration also exists. UA not done. 01/12/2022 procalcitonin 9.4. No blood cultures done. #Recent COVID-19 pneumonia: Recently discharged on 01/11/2022, completed remdesivir and received 10-day course of Decadron. #Acute hypoxic respiratory failure: Secondary to pneumonia. Stable to improving. #Dementia #Elevated troponin #Reactive thrombocytosis: likely secondary to sepsis Recs: -empiric cefepime, vancomycin, target vancomycin trough between 10 to 15 mcg/mL, complete 5 days -Follow-up UA -if clinically improved, Cefepime can be switched to levofloxacin 500 mg daily to complete 5 days Daniel Otto MD [facility] O: [phone] F: [phone] Subjective Date of service: 01/14/22 Interval history: Afebrile, normal white count. Objective - Exam Narrative Exam: Physical Exam: Constitutional: awake, doesn't follow commands Head, Ears, Nose: Normocephalic, atraumatic. External ears, nose normal Eyes: Conjunctivae/corneas clear. No icterus. No ptosis. Neck: Supple, no meningeal signs Oral: edentulous Cardiovascular: S1, S2 + Respiratory: clear b/l GI: Soft, non-tender; bowel sounds normal. No peritoneal signs Musculoskeletal: No pedal edema, no cyanosis. Skin: No rash or abscess Hem/Lymphatic: No palpable cervical or supraclavicular nodes. Psych: Calm, no agitation Neurological: awake - Constitutional Vitals: Vital Signs Temp Pulse Resp BP Pulse Ox 97.9 F 76 16 127/69 100 01/14/22 04:36 01/14/22 04:36 01/14/22 04:36 01/14/22 04:36 01/14/22 04:36 Temperature -Last 24 Hours Temperature 97.9 F Temperature 97.5 F Temperature 98.2 F Temperature 98.5 F - Labs CBC & Chem 7: 01/13/22 06:48 01/13/22 06:48 Labs: Abnormal lab results 01/13/22 01/13/22 01/13/22 Range/Units 06:48 12:33 16:09 Seg Neuts % (Manual) 77.0 H (40.0-70.0) % Lymphocytes % (Manual) 9.0 L (13.4-35.0) % Eosinophils % (Manual) 7.0 H (0.0-4.3) % Nucleated RBC % 1.0 H (0.0-0.9) % Lymphocytes # (Manual) 0.7 L (1.2-5.4) K/mm3 Eosinophils # (Manual) 0.6 H (0.0-0.4) K/mm3 POC Glucose 152 H 154 H (70-105) mg/dL 01/13/22 01/14/22 Range/Units 21:53 07:03 Seg Neuts % (Manual) (40.0-70.0) % Lymphocytes % (Manual) (13.4-35.0) % Eosinophils % (Manual) (0.0-4.3) % Nucleated RBC % (0.0-0.9) % Lymphocytes # (Manual) (1.2-5.4) K/mm3 Eosinophils # (Manual) (0.0-0.4) K/mm3 POC Glucose 130 H 148 H (70-105) mg/dL
[2022-01-14 09:13] LABS: Mucus,Urine FEW /HPF
[2022-01-14 09:20] LABS: Bilirubin,Urine Negative (Negative); Color,Urine Yellow (Yellow)
[2022-01-14 09:21] LABS: Blood,Urine Negative (Negative); PH,Urine 6.5 (5.0-7.0); Urobilinogen,Urine < 2.0 mg/dL (<2.0)
[2022-01-14 10:14] LABS: Blood Urea Nitrogen 16 mg/dL (7-17); Calcium 9.4 mg/dL (8.4-10.2); Hemolysis Index 8
[2022-01-14 10:24] LABS: BUN/Creatinine Ratio 32
--- NOTE | 2022-01-14 10:26 | Progress Note ---
Assessment and Plan Assessment and plan: 86-year-old female alf resident with PMH of seizure disorder, prior CVA, hypertension, dementia with admitted for dyspnea. Patient had a chest x- ray and CTA that revealed multifocal pneumonia. No PE. Patient was noted to have leukocytosis with WBC 15.2 and lactate of 2.2. Sepsis. Bilateral pneumonia. COVID PCR negative UTI. Hypokalemia Dementia. Elevated troponin. Reactive thrombocytosis. Sinus tachycardia CAD Hypertension Seizure disorder History CVA 01/13/2022. ID started empiric antibiotics of cefepime and vancomycin. We will follow-up blood cultures. Replete potassium and check magnesium. Follow-up BMP in a.m. 01/14/2022. Continue IV antibiotics per ID recommendations for total of 5 days. Continue to follow-up cultures. Continue empiric medical therapy with topical nitrates, beta-raheem and antiplatelet therapy. Cardiology following. Urinalysis did reveal UTI. History Interval history: No new issues overnight Hospitalist Physical - Constitutional Vitals: Temp Pulse Resp BP Pulse Ox 97.9 F 76 16 127/69 100 01/14/22 04:36 01/14/22 04:36 01/14/22 04:36 01/14/22 04:36 01/14/22 04:36 General appearance: Present: no acute distress, cachectic, other (Noncommunicative, frail, chronically ill-appearing, contracted) - EENT Eyes: Present: PERRL, EOM intact ENT: hearing intact, clear oral mucosa, dentition normal - Neck Neck: Present: supple, normal ROM - Respiratory Respiratory effort: normal Respiratory: bilateral: CTA - Cardiovascular Rhythm: regular Heart Sounds: Present: S1 & S2. Absent: gallop, rub - Extremities Extremities: no ischemia, No edema, Full ROM - Abdominal General gastrointestinal: soft, non-tender, non-distended, normal bowel sounds - Integumentary Integumentary: Present: clear, warm, dry - Neurologic Neurologic: CNII-XII intact, moves all extremities HEART Score - HEART Score Troponin: Troponin T 0.055 ng/mL (0.00-0.029) H D 01/12/22 19:04 Results - Labs CBC & Chem 7: 01/13/22 06:48 01/14/22 09:19 Labs: Laboratory Last Values WBC 8.2 K/mm3 (4.5-11.0) 01/13/22 06:48 RBC 3.72 M/mm3 (3.65-5.03) 01/13/22 06:48 Hgb 9.8 gm/dl (10.1-14.3) L 01/13/22 06:48 Hct 30.7 % (30.3-42.9) 01/13/22 06:48 MCV 82 fl (79-97) 01/13/22 06:48 MCH 26 pg (28-32) L 01/13/22 06:48 MCHC 32 % (30-34) 01/13/22 06:48 RDW 20.6 % (13.2-15.2) H 01/13/22 06:48 Plt Count 428 K/mm3 (140-440) 01/13/22 06:48 Add Manual Diff Complete 01/13/22 06:48 Total Counted 100 01/13/22 06:48 Seg Neuts % (Manual) 77.0 % (40.0-70.0) H 01/13/22 06:48 Band Neutrophils % 1.0 % 01/13/22 06:48 Lymphocytes % (Manual) 9.0 % (13.4-35.0) L 01/13/22 06:48 Reactive Lymphs % (Man) 0 % 01/13/22 06:48 Monocytes % (Manual) 4.0 % (0.0-7.3) 01/13/22 06:48 Eosinophils % (Manual) 7.0 % (0.0-4.3) H 01/13/22 06:48 Basophils % (Manual) 0 % (0.0-1.8) 01/13/22 06:48 Metamyelocytes % 2.0 % 01/13/22 06:48 Myelocytes % 0 % 01/13/22 06:48 Promyelocytes % 0 % 01/13/22 06:48 Blast Cells % 0 % 01/13/22 06:48 Nucleated RBC % 1.0 % (0.0-0.9) H 01/13/22 06:48 Seg Neutrophils # Man 6.3 K/mm3 (1.8-7.7) 01/13/22 06:48 Band Neutrophils # 0.1 K/mm3 01/13/22 06:48 Lymphocytes # (Manual) 0.7 K/mm3 (1.2-5.4) L 01/13/22 06:48 Abs React Lymphs (Man) 0.0 K/mm3 01/13/22 06:48 Monocytes # (Manual) 0.3 K/mm3 (0.0-0.8) 01/13/22 06:48 Eosinophils # (Manual) 0.6 K/mm3 (0.0-0.4) H 01/13/22 06:48 Basophils # (Manual) 0.0 K/mm3 (0.0-0.1) 01/13/22 06:48 Metamyelocytes # 0.2 K/mm3 01/13/22 06:48 Myelocytes # 0.0 K/mm3 01/13/22 06:48 Promyelocytes # 0.0 K/mm3 01/13/22 06:48 Blast Cells # 0.0 K/mm3 01/13/22 06:48 WBC Morphology Not Reportable 01/13/22 06:48 Hypersegmented Neuts Not Reportable 01/13/22 06:48 Hyposegmented Neuts Rare 01/13/22 06:48 Hypogranular Neuts Not Reportable 01/13/22 06:48 Smudge Cells Not Reportable 01/13/22 06:48 Toxic Granulation Not Reportable 01/13/22 06:48 Toxic Vacuolation Not Reportable 01/13/22 06:48 Dohle Bodies Not Reportable 01/13/22 06:48 Pelger-Huet Anomaly Not Reportable 01/13/22 06:48 Marina Rods Not Reportable 01/13/22 06:48 Platelet Estimate Consistent w auto 01/13/22 06:48 Clumped Platelets Not Reportable 01/13/22 06:48 Plt Clumps, EDTA Not Reportable 01/13/22 06:48 Large Platelets Not Reportable 01/13/22 06:48 Giant Platelets Not Reportable 01/13/22 06:48 Platelet Satelliting Not Reportable 01/13/22 06:48 Plt Morphology Comment Not Reportable 01/13/22 06:48 RBC Morphology Not Reportable 01/13/22 06:48 Dimorphic RBCs Not Reportable 01/13/22 06:48 Polychromasia Not Reportable 01/13/22 06:48 Hypochromasia 1+ 01/13/22 06:48 Poikilocytosis 1+ 01/13/22 06:48 Anisocytosis 1+ 01/13/22 06:48 Microcytosis 1+ 01/13/22 06:48 Macrocytosis Rare 01/13/22 06:48 Spherocytes Not Reportable 01/13/22 06:48 Pappenheimer Bodies Not Reportable 01/13/22 06:48 Sickle Cells Not Reportable 01/13/22 06:48 Target Cells Rare 01/13/22 06:48 Tear Drop Cells Not Reportable 01/13/22 06:48 Ovalocytes Rare 01/13/22 06:48 Stomatocytes Rare 01/13/22 06:48 Helmet Cells Not Reportable 01/13/22 06:48 [place] Bodies Not Reportable 01/13/22 06:48 [place] Rings Not Reportable 01/13/22 06:48 [place] Cells Not Reportable 01/13/22 06:48 Bite Cells Not Reportable 01/13/22 06:48 Crenated Cell Not Reportable 01/13/22 06:48 Elliptocytes Not Reportable 01/13/22 06:48 Acanthocytes (Spur) Rare 01/13/22 06:48 Rouleaux Not Reportable 01/13/22 06:48 Hemoglobin C Crystals Not Reportable 01/13/22 06:48 Schistocytes Not Reportable 01/13/22 06:48 Malaria parasites Not Reportable 01/13/22 06:48 Kevin Bodies Not Reportable 01/13/22 06:48 Hem Pathologist Commnt No 01/13/22 06:48 PT 14.3 Sec. (12.2-14.9) 01/11/22 21:41 INR 1.00 (0.87-1.13) 01/11/22 21:41 APTT 24.7 Sec. (24.2-36.6) 01/11/22 21:41 D-Dimer 1304.06 ng/mlDDU (0-234) H 01/12/22 10:47 Sodium 143 mmol/L (137-145) 01/14/22 09:19 Potassium 2.7 mmol/L (3.6-5.0) L* D 01/13/22 06:48 Chloride 110.8 mmol/L (98-107) H 01/14/22 09:19 Carbon Dioxide 22 mmol/L (22-30) 01/14/22 09:19 Anion Gap 14 mmol/L 01/14/22 09:19 BUN 16 mg/dL (7-17) 01/14/22 09:19 Creatinine 0.5 mg/dL (0.6-1.2) L 01/13/22 06:48 Estimated GFR > 60 ml/min 01/13/22 06:48 BUN/Creatinine Ratio 28 % 01/13/22 06:48 Glucose 148 mg/dL (65-100) H 01/14/22 09:19 POC Glucose 148 mg/dL (70-105) H 01/14/22 07:03 Lactic Acid 2.20 mmol/L (0.7-2.0) H* 01/12/22 00:35 Calcium 9.4 mg/dL (8.4-10.2) 01/14/22 09:19 Magnesium 2.10 mg/dL (1.7-2.3) 01/13/22 01:30 Ferritin 630.6 ng/mL (10.0-200.0) H 01/12/22 10:47 Total Bilirubin 0.20 mg/dL (0.1-1.2) 01/11/22 21:41 AST 11 units/L (5-40) 01/11/22 21:41 ALT 13 units/L (7-56) 01/11/22 21:41 Alkaline Phosphatase 79 units/L (35-129) 01/11/22 21:41 Lactate Dehydrogenase 206 units/L (91-180) H 01/12/22 10:47 Total Creatine Kinase 30 units/L (30-135) 01/11/22 21:41 CK-MB (CK-2) 2.7 ng/mL (0.0-4.0) 01/11/22 21:41 CK-MB (CK-2) Rel Index 9.0 (0-4) H 01/11/22 21:41 Troponin T 0.055 ng/mL (0.00-0.029) H D 01/12/22 19:04 C-Reactive Protein 12.60 mg/dL (0.00-1.30) H 01/12/22 10:47 Total Protein 7.6 g/dL (6.3-8.2) 01/11/22 21:41 Albumin 4.0 g/dL (3.9-5) 01/11/22 21:41 Albumin/Globulin Ratio 1.1 % 01/11/22 21:41 Triglycerides 128 mg/dL (2-149) 01/12/22 19:04 Cholesterol 96 mg/dL (50-199) 01/12/22 19:04 LDL Cholesterol Direct 26 mg/dL (50-130) L 01/12/22 19:04 HDL Cholesterol 47 mg/dL (40-59) 01/12/22 19:04 Cholesterol/HDL Ratio 2.04 % 01/12/22 19:04 Procalcitonin 9.47 ng/mL (<0.15) 01/12/22 10:47 Urine Color Yellow (Yellow) 01/14/22 07:59 Urine Turbidity Clear (Clear) 01/14/22 07:59 Urine pH 6.5 (5.0-7.0) 01/14/22 07:59 Ur Specific [place] 1.015 (1.003-1.030) 01/14/22 07:59 Urine Protein 30 mg/dl mg/dL (Negative) 01/14/22 07:59 Urine Glucose (UA) Negative mg/dL (Negative) 01/14/22 07:59 Urine Ketones Negative mg/dL (Negative) 01/14/22 07:59 Urine Blood Negative (Negative) 01/14/22 07:59 Urine Nitrite Negative (Negative) 01/14/22 07:59 Urine Bilirubin Negative (Negative) 01/14/22 07:59 Urine Urobilinogen < 2.0 mg/dL (<2.0) 01/14/22 07:59 Ur Leukocyte Esterase Moderate (Negative) 01/14/22 07:59 Urine WBC (Auto) 41.0 /HPF (0.0-6.0) H 01/14/22 07:59 Urine RBC (Auto) 22.0 /HPF (0.0-6.0) 01/14/22 07:59 U Epithel Cells (Auto) 1.0 /HPF (0-13.0) 01/14/22 07:59 Urine Mucus Few /HPF 01/14/22 07:59 Nasal Screen MRSA (PCR) Positive (Negative) 01/13/22 09:04 SARS-CoV-2 (PCR) Negative (Negative) 01/12/22 09:11 [place]/IV: Voiding Method External Female Catheter Active Medications - Current Medications Current Medications: Generic Name Dose Route Start Last Admin Trade Name Freq PRN Reason Stop Dose Admin Acetaminophen 650 mg 01/12/22 00:52 Acetaminophen 325 Mg Tab PO Q4H PRN Pain MILD(1-3)/Fever >100.5/FERRARI Lipase/Protease/Amylase 1 each 01/12/22 12:35 Lipase 10,500/Protease 25,000/Amylase 43,750 (Units) Dr Collier FEEDTUBE PRN PRN For Clogged Feeding Tube Dextrose 50 ml 01/12/22 00:52 Dextrose 50% In Water (25gm) 50 Ml Syringe IV Q30MIN PRN Hypoglycemia Protocol Heparin Sodium (Porcine) 5,000 unit 01/12/22 06:00 01/14/22 06:47 Heparin 5,000 Unit/1 Ml Vial SUB-Q 5,000 unit Q8HR CONNIE Administration Cefepime HCl 2 gm in 100 mls @ 200 mls/hr 01/12/22 02:00 01/14/22 02:00 Cefepime/Ns 2 Gm/100 Ml IV 01/16/22 14:29 200 mls/hr Q12H CONNIE Administration Protocol Vancomycin HCl 1 gm in 250 mls @ 166.667 mls/hr 01/13/22 00:00 01/14/22 00:47 Vancomycin/Ns 1 Gm/250 Ml IV 01/16/22 01:59 166.667 mls/hr Q24H CONNIE Administration Sodium Chloride 1,000 mls @ 75 mls/hr 01/14/22 10:00 Nacl 0.9% 1000 Ml IV DIRECT CONNIE Insulin Human Lispro 0 unit 01/13/22 12:00 01/14/22 07:46 Insulin Lispro 100 Unit/Ml SUB-Q Not Given Q6HR CONNIE Protocol Magnesium Hydroxide 30 ml 01/12/22 00:52 Magnesium Hydroxide (Mom) Oral Liqd Udc PO Q4H PRN Constipation Morphine Sulfate 2 mg 01/12/22 00:52 Morphine 2 Mg/1 Ml Inj IV Q4H PRN Pain, Moderate (4-6) Morphine Sulfate 4 mg 01/12/22 00:52 Morphine 4 Mg/1 Ml Inj IV Q4H PRN Pain , Severe (7-10) Ondansetron HCl 4 mg 01/12/22 00:52 Ondansetron 4 Mg/2 Ml Inj IV Q8H PRN Nausea And Vomiting Simple Syrup 15 ml 01/12/22 12:35 Simple Syrup 15 Ml FEEDTUBE PRN PRN Hypoglycemia Simple Syrup 30 ml 01/12/22 12:35 Simple Syrup 15 Ml FEEDTUBE PRN PRN Hypoglycemia Sodium Bicarbonate 325 mg 01/12/22 12:35 Sodium Bicarbonate 325 Mg Tab FEEDTUBE PRN PRN For Clogged Feeding Tube Sodium Chloride 10 ml 01/12/22 10:00 01/14/22 09:19 Sodium Chloride 0.9% 10 Ml Flush Syringe IV 10 ml BID CONNIE Administration Sodium Chloride 10 ml 01/12/22 00:52 Sodium Chloride 0.9% 10 Ml Flush Syringe IV PRN PRN LINE FLUSH Nutrition/Malnutrition Assess - Dietary Evaluation Nutrition/Malnutrition Findings: Nutrition Notes Start: 01/12/22 12:03 Freq: Status: Active Protocol: Document 01/12/22 12:03 CARMEN (Rec: 01/12/22 12:40 CARMEN [id number]) Nutrition Notes Need for Assessment generated from: MD Order Initial or Follow up Assessment Current Diagnosis Diabetes,Sepsis,Hypertension, Stroke,Hyperlipidemia Other Pertinent Diagnosis Seizure, Pneumonia, GRED, Dementia. Current Diet TF-Glucerna 1.2 Sarbjit @ 50 ml/hr (from D 01/12). Labs/Tests 01/12: BUN 25, Glu 207. Pertinent Medications 01/12: Nutritionally unremarkable. Height 5 ft 4 in Weight 72.575 kg [place] Body Weight (kg) 54.54 BMI 27.4 Weight change and time frame None provided at admission. Last visit on 12/24/21, Pt's anthropometrics were: Ht 5'6", Wt 65 Kg, BMI 23.1 Kg/m2. Significant dicrepancy noted. I was not able to contact RN over the phone to verify data. Weight Status Overweight Subjective/Other Information RD consult for write/manage TF . Pt has a PEG tube poa. I will Prescribe and Order TF. Pt is on Room Air, O2 saturation @ 100%, according to Vital Signs note. Pt lives on a SNF, according to [facility] Physical notes. No further information available on the chart to perform a full assessment, will complete it at F/U. Percent of energy/protein needs met: Prescribed TF-Glucerna 1.2 Sarbjit @ 50 ml/hr provides for energy/protein needs (1,450 Kcal/73 g) during LOS, 95% Kcal; 100% AA. GI Symptoms Other Food Allergy No Current % PO Other #1 Nutrition Diagnosis Altered GI function Etiology Uncertain. As Evidenced by Signs and Symptoms Pt has a PEG tube poa, and currently on NPO. Is patient on ventilator? No Is Patient Ambulatory and/or Out of Bed No REE-([facility]-confined to bed) 1400.088 Kcal/Kg value to use for calculation 21 Approximate Energy Requirements Using 1524 kcal/Kg Calculation Used for Recommendations Kcal/kg Additional Notes Protein: 1-1.2 g/Kg ABW; 73-88 g/day. Fluids: 1 ml/Kcal, or as per MD. Nutrition Intervention Nutrition Support: Start TF-Glucerna 1.2 Sarbjit @ 50 ml/hr. Flush: 100 ml water Q 4 hr, or as per MD. Kcal 1,450 Protein (gm) 73 Carbohydrates (gm) 138 Fat (gm) 73 Fluid (mL) 973 Fiber (gm) 19 % RDI: 95% Kcal; 100% AA. Goal #1 Provide at least 75% of energy /protein needs through Enteral Feeding during LOS. Goal #2 Maintain body weight within +/ -3% of admission body weight during LOS. Follow-Up By: 01/14/22 Additional Comments Start monitoring TF tolerance and BM.
--- NOTE | 2022-01-14 13:03 | Progress Note ---
Assessment and Plan Sinus tachycardia is a physiologic response to fever, multilobar pneumonia and sepsis. Sinus rate should trend towards baseline on optimal management of the pneumonia and sepsis. For the patient's history of coronary artery disease we will continue empiric medical therapy including topical nitrates, beta-blockers and oral antiplatelet therapy. Subjective Date of service: 01/14/22 Principal diagnosis: Bilateral pneumonia Interval history: Patient is lethargic, breathing comfortably on room air no acute distress. No new cardiac events reported. Objective Vital Signs Temp Pulse Resp BP Pulse Ox 01/14/22 10:46 99.0 F 91 H 22 157/82 98 01/14/22 04:36 97.9 F 76 16 127/69 100 01/13/22 21:51 97.5 F L 93 H 16 128/68 100 01/13/22 16:11 98.2 F 94 H 22 154/77 98 - Physical Examination General: No Apparent Distress, Cachectic, Other (Chronically ill-appearing, noncommunicative) HEENT: Positive: PERRL Neck: Positive: neck supple Cardiac: Positive: Reg Rate and Rhythm Lungs: Positive: Decreased Breath Sounds Neuro: Positive: Weakness (Generalized lethargy) Abdomen: Positive: Soft Skin: Positive: Clear Extremities: Absent: edema - Labs and Meds Comprehensive Metabolic Panel 01/14/22 Range/Units 09:19 Sodium 143 (137-145) mmol/L Potassium 3.7 D (3.6-5.0) mmol/L Chloride 110.8 H (98-107) mmol/L Carbon Dioxide 22 (22-30) mmol/L BUN 16 (7-17) mg/dL Creatinine 0.5 L (0.6-1.2) mg/dL Glucose 148 H (65-100) mg/dL Calcium 9.4 (8.4-10.2) mg/dL
--- NOTE | 2022-01-14 14:40 | Progress Note ---
Assessment and Plan Acute hypoxic respiratory failure: Secondary to pneumonia. Multifocal pneumonia Sepsis Dementia Elevated troponin Reactive thrombocytosis Elevated D-dimer Elevated troponin-possibly demand ischemia ABG, CXR as clinically indicated Replete electrolytes- keep potassium >3.5 and Magnesium at 2, Phos >2.5 to optimize respiratory muscle function -Continue to titrate supplemental oxygen to keep SpO2 90-92% -Antibiotics for HACP- Cefepime and Vancomycin per ID De-escalate based on culture data and clinical response Awaiting MRSA swab to decide on discontinuation of Vancomycin -Conservative fluid management as tolerated by blood pressure and renal function -VTE prophylaxis -Aspiration precautions, HOB >30 -Bronchodilators prn -Continue enteric nutritional support -ABG, CXR as clinically indicated -Avoid delirium, maintain sleep-wake cycle. Patient has baseline dementia and is at risk for delirium -Mobility, off loading and frequent turning per hospital protocol to prevent pressure ulcers -Influenza and pneumonia vaccination per protocol -Chronic home medications as clinically indicated All other care -per Attending and other process improvement consultant physicians Subjective Date of service: 01/14/22 Principal diagnosis: Bilateral pneumonia Interval history: Follow up for: acute hypoxic resp failure; multifocal pneumonia; Sepsis Seen and examined. Vitals, labs, medications, chart and imaging reviewed. No acute overnight events reported. Discussed with nursing and respiratory staff. No fevers, she is on supplemental oxygen at 2L/min, slow speech Objective - Exam Narrative Exam: General appearance: Present: no acute distress,chronically ill looking, resting in bed - EENT Eyes: Present: PERRL, EOM intact. Absent: scleral icterus ENT: hearing intact, clear oral mucosa, dentition normal - Neck Neck: Present: supple, normal ROM - Respiratory Respiratory effort: normal Respiratory: bilateral: diminished - Cardiovascular Rhythm: regular Heart Sounds: Present: S1 & S2. Absent: gallop, systolic murmur, diastolic murmur, rub, click - Extremities Extremities: no ischemia, pulses intact, pulses symmetrical, No edema, normal temperature, normal color, Full ROM Peripheral Pulses: within normal limits - Abdominal General gastrointestinal: Present: soft, non-tender, non-distended, normal bowel sounds, other (Peg tube in place). Absent: mass - Integumentary Integumentary: Present: clear, warm, dry, normal turgor. Absent: rash - Musculoskeletal Musculoskeletal: strength equal bilaterally - Psychiatric Psychiatric: cooperative - Neurologic Neurologic: No focal deficits, moves all extremities Vital Signs - 12hr 01/14/22 01/14/22 04:36 10:46 Temperature 97.9 F 99.0 F Pulse Rate 76 91 H Respiratory 16 22 Rate Blood Pressure 127/69 157/82 O2 Sat by Pulse 100 98 Oximetry CBC and BMP: 01/15/22 04:13 01/15/22 04:13 ABG, PT/INR, D-dimer: PT/INR, D-dimer PT 14.3 Sec. (12.2-14.9) 01/11/22 21:41 INR 1.00 (0.87-1.13) 01/11/22 21:41 D-Dimer 792.24 ng/mlDDU (0-234) H 01/14/22 09:19 Abnormal lab findings: Abnormal Labs 01/11/22 01/11/22 01/11/22 21:41 21:41 21:41 WBC 15.2 H Hgb MCH RDW 20.6 H Plt Count 450 H Seg Neuts % (Manual) 91.0 H Lymphocytes % (Manual) 6.0 L Eosinophils % (Manual) Nucleated RBC % Seg Neutrophils # Man 13.8 H Lymphocytes # (Manual) 0.9 L Eosinophils # (Manual) D-Dimer 1128.67 H Potassium Chloride BUN 25 H Creatinine Glucose 207 H POC Glucose Lactic Acid Ferritin Lactate Dehydrogenase CK-MB (CK-2) Rel Index Troponin T C-Reactive Protein LDL Cholesterol Direct Urine WBC (Auto) 01/11/22 01/11/22 01/12/22 21:41 23:30 00:35 WBC Hgb MCH RDW Plt Count Seg Neuts % (Manual) Lymphocytes % (Manual) Eosinophils % (Manual) Nucleated RBC % Seg Neutrophils # Man Lymphocytes # (Manual) Eosinophils # (Manual) D-Dimer Potassium Chloride BUN Creatinine Glucose POC Glucose Lactic Acid 2.10 H* 2.20 H* Ferritin Lactate Dehydrogenase CK-MB (CK-2) Rel Index 9.0 H Troponin T 0.091 H C-Reactive Protein LDL Cholesterol Direct Urine WBC (Auto) 01/12/22 01/12/22 01/12/22 00:35 07:43 10:47 WBC Hgb MCH RDW Plt Count Seg Neuts % (Manual) Lymphocytes % (Manual) Eosinophils % (Manual) Nucleated RBC % Seg Neutrophils # Man Lymphocytes # (Manual) Eosinophils # (Manual) D-Dimer 1304.06 H Potassium Chloride BUN Creatinine Glucose POC Glucose 112 H Lactic Acid Ferritin Lactate Dehydrogenase CK-MB (CK-2) Rel Index Troponin T 0.105 H* C-Reactive Protein LDL Cholesterol Direct Urine WBC (Auto) 01/12/22 01/12/22 01/12/22 10:47 10:47 12:42 WBC Hgb MCH RDW Plt Count Seg Neuts % (Manual) Lymphocytes % (Manual) Eosinophils % (Manual) Nucleated RBC % Seg Neutrophils # Man Lymphocytes # (Manual) Eosinophils # (Manual) D-Dimer Potassium Chloride BUN Creatinine Glucose 121 H POC Glucose 116 H Lactic Acid Ferritin 630.6 H Lactate Dehydrogenase 206 H CK-MB (CK-2) Rel Index Troponin T C-Reactive Protein 12.60 H LDL Cholesterol Direct Urine WBC (Auto) 01/12/22 01/12/22 01/12/22 16:06 19:04 22:50 WBC Hgb MCH RDW Plt Count Seg Neuts % (Manual) Lymphocytes % (Manual) Eosinophils % (Manual) Nucleated RBC % Seg Neutrophils # Man Lymphocytes # (Manual) Eosinophils # (Manual) D-Dimer Potassium Chloride BUN Creatinine Glucose POC Glucose 111 H 108 H Lactic Acid Ferritin Lactate Dehydrogenase CK-MB (CK-2) Rel Index Troponin T 0.055 H D C-Reactive Protein LDL Cholesterol Direct 26 L Urine WBC (Auto) 01/13/22 01/13/22 01/13/22 05:47 06:48 06:48 WBC Hgb 9.8 L MCH 26 L RDW 20.6 H Plt Count Seg Neuts % (Manual) 77.0 H Lymphocytes % (Manual) 9.0 L Eosinophils % (Manual) 7.0 H Nucleated RBC % 1.0 H Seg Neutrophils # Man Lymphocytes # (Manual) 0.7 L Eosinophils # (Manual) 0.6 H D-Dimer Potassium 2.7 L* D Chloride BUN Creatinine 0.5 L Glucose 128 H POC Glucose 118 H Lactic Acid Ferritin Lactate Dehydrogenase CK-MB (CK-2) Rel Index Troponin T C-Reactive Protein LDL Cholesterol Direct Urine WBC (Auto) 01/13/22 01/13/22 01/13/22 08:13 12:33 16:09 WBC Hgb MCH RDW Plt Count Seg Neuts % (Manual) Lymphocytes % (Manual) Eosinophils % (Manual) Nucleated RBC % Seg Neutrophils # Man Lymphocytes # (Manual) Eosinophils # (Manual) D-Dimer Potassium Chloride BUN Creatinine Glucose POC Glucose 130 H 152 H 154 H Lactic Acid Ferritin Lactate Dehydrogenase CK-MB (CK-2) Rel Index Troponin T C-Reactive Protein LDL Cholesterol Direct Urine WBC (Auto) 01/13/22 01/14/22 01/14/22 21:53 07:03 07:59 WBC Hgb MCH RDW Plt Count Seg Neuts % (Manual) Lymphocytes % (Manual) Eosinophils % (Manual) Nucleated RBC % Seg Neutrophils # Man Lymphocytes # (Manual) Eosinophils # (Manual) D-Dimer Potassium Chloride BUN Creatinine Glucose POC Glucose 130 H 148 H Lactic Acid Ferritin Lactate Dehydrogenase CK-MB (CK-2) Rel Index Troponin T C-Reactive Protein LDL Cholesterol Direct Urine WBC (Auto) 41.0 H 01/14/22 01/14/22 01/14/22 09:19 09:19 11:48 WBC Hgb MCH RDW Plt Count Seg Neuts % (Manual) Lymphocytes % (Manual) Eosinophils % (Manual) Nucleated RBC % Seg Neutrophils # Man Lymphocytes # (Manual) Eosinophils # (Manual) D-Dimer 792.24 H Potassium Chloride 110.8 H BUN Creatinine 0.5 L Glucose 148 H POC Glucose 163 H Lactic Acid Ferritin Lactate Dehydrogenase CK-MB (CK-2) Rel Index Troponin T C-Reactive Protein LDL Cholesterol Direct Urine WBC (Auto)
[2022-01-15] MEDS: CEFEPIME/NS 2 GM/100 ML 2 GM/100 ML BAG IV SCH ×2 (02:13→12:59)
[2022-01-15] MEDS: SODIUM CHLORIDE 0.9% 1000 ML 1,000 ML IV SCH ×2 (02:14→16:42)
[2022-01-15] MEDS: HEPARIN 5,000 UNIT/1 ML VIAL SUB-Q SCH ×3 (05:38→22:08)
[2022-01-15 05:46] LABS: Blood Urea Nitrogen 13 mg/dL (7-17); Calcium 9.2 mg/dL (8.4-10.2); Hemolysis Index 3
[2022-01-15 05:52] LABS: BUN/Creatinine Ratio 33
[2022-01-15 05:57] LABS: Hematocrit 27.2 % (30.3-42.9); Hemoglobin 8.8 gm/dl (10.1-14.3); Mean Corpuscular HGB Conc 32 % (30-34); Mean Corpuscular Volume 84 fl (79-97); Platelet Count 428 K/mm3 (140-440); Red Blood Count 3.25 M/mm3 (3.65-5.03)
[2022-01-15] MEDS: INSULIN LISPRO 100 UNIT/ML SUB-Q SCH ×3 (06:02→17:20)
[2022-01-15 06:12] LABS: Red Cell Distribution Width 21.6 % (13.2-15.2)
[2022-01-15 08:52] LABS: Anisocytosis 1+; Basophils % (Manual) 0 % (0.0-1.8); Promyelocytes # (Manual) 0.1 K/mm3; Total Cells Counted 100
[2022-01-15 08:53] LABS: Platelet Estimate Consistent w Auto
--- NOTE | 2022-01-15 11:33 | Progress Note ---
Assessment and Plan Assessment and plan: 86-year-old [facility] with PMH of seizure disorder, prior CVA, hypertension, dementia with admitted for dyspnea. Patient had a chest x- ray and CTA that revealed multifocal pneumonia. No PE. Patient was noted to have leukocytosis with WBC 15.2 and lactate of 2.2. Sepsis. Bilateral pneumonia. COVID PCR negative UTI. Hypokalemia Dementia. Elevated troponin. Reactive thrombocytosis. Sinus tachycardia CAD Hypertension Seizure disorder History CVA 01/13/2022. ID started empiric antibiotics of cefepime and vancomycin. We will follow-up blood cultures. Replete potassium and check magnesium. Follow-up BMP in a.m. 01/14/2022. Continue IV antibiotics per ID recommendations for total of 5 days. Continue to follow-up cultures. Continue empiric medical therapy with topical nitrates, beta-raheem and antiplatelet therapy. Cardiology following. Urinalysis did reveal UTI. History Interval history: No new issues overnight Hospitalist Physical - Constitutional Vitals: Temp Pulse Resp BP Pulse Ox 98.9 F 88 16 148/83 100 01/15/22 04:38 01/15/22 04:38 01/15/22 04:38 01/15/22 04:38 01/15/22 08:32 General appearance: Present: no acute distress, cachectic, other (Noncommunicative, frail, chronically ill-appearing, contracted) - EENT Eyes: Present: PERRL, EOM intact ENT: hearing intact, clear oral mucosa, dentition normal - Neck Neck: Present: supple, normal ROM - Respiratory Respiratory effort: normal Respiratory: bilateral: CTA - Cardiovascular Rhythm: regular Heart Sounds: Present: S1 & S2. Absent: gallop, rub - Extremities Extremities: no ischemia, No edema, Full ROM - Abdominal General gastrointestinal: soft, non-tender, non-distended, normal bowel sounds - Integumentary Integumentary: Present: clear, warm, dry - Neurologic Neurologic: CNII-XII intact, moves all extremities HEART Score - HEART Score Troponin: Troponin T 0.055 ng/mL (0.00-0.029) H D 01/12/22 19:04 Results - Labs CBC & Chem 7: 01/15/22 04:13 01/15/22 04:13 Labs: Laboratory Last Values WBC 7.5 K/mm3 (4.5-11.0) 01/15/22 04:13 RBC 3.25 M/mm3 (3.65-5.03) L 01/15/22 04:13 Hgb 8.8 gm/dl (10.1-14.3) L 01/15/22 04:13 Hct 27.2 % (30.3-42.9) L 01/15/22 04:13 MCV 84 fl (79-97) 01/15/22 04:13 MCH 27 pg (28-32) L 01/15/22 04:13 MCHC 32 % (30-34) 01/15/22 04:13 RDW 21.6 % (13.2-15.2) H 01/15/22 04:13 Plt Count 428 K/mm3 (140-440) 01/15/22 04:13 Add Manual Diff Complete 01/15/22 04:13 Total Counted 100 01/15/22 04:13 Seg Neuts % (Manual) 60.0 % (40.0-70.0) 01/15/22 04:13 Band Neutrophils % 0 % 01/15/22 04:13 Lymphocytes % (Manual) 17.0 % (13.4-35.0) 01/15/22 04:13 Reactive Lymphs % (Man) 0 % 01/15/22 04:13 Monocytes % (Manual) 19.0 % (0.0-7.3) H 01/15/22 04:13 Eosinophils % (Manual) 3.0 % (0.0-4.3) 01/15/22 04:13 Basophils % (Manual) 0 % (0.0-1.8) 01/15/22 04:13 Metamyelocytes % 0 % 01/15/22 04:13 Myelocytes % 0 % 01/15/22 04:13 Promyelocytes % 1.0 % 01/15/22 04:13 Blast Cells % 0 % 01/15/22 04:13 Nucleated RBC % Not Reportable 01/15/22 04:13 Seg Neutrophils # Man 4.5 K/mm3 (1.8-7.7) 01/15/22 04:13 Band Neutrophils # 0.0 K/mm3 01/15/22 04:13 Lymphocytes # (Manual) 1.3 K/mm3 (1.2-5.4) 01/15/22 04:13 Abs React Lymphs (Man) 0.0 K/mm3 01/15/22 04:13 Monocytes # (Manual) 1.4 K/mm3 (0.0-0.8) H 01/15/22 04:13 Eosinophils # (Manual) 0.2 K/mm3 (0.0-0.4) 01/15/22 04:13 Basophils # (Manual) 0.0 K/mm3 (0.0-0.1) 01/15/22 04:13 Metamyelocytes # 0.0 K/mm3 01/15/22 04:13 Myelocytes # 0.0 K/mm3 01/15/22 04:13 Promyelocytes # 0.1 K/mm3 01/15/22 04:13 Blast Cells # 0.0 K/mm3 01/15/22 04:13 WBC Morphology Not Reportable 01/15/22 04:13 Hypersegmented Neuts Not Reportable 01/15/22 04:13 Hyposegmented Neuts Not Reportable 01/15/22 04:13 Hypogranular Neuts Not Reportable 01/15/22 04:13 Smudge Cells Not Reportable 01/15/22 04:13 Toxic Granulation Not Reportable 01/15/22 04:13 Toxic Vacuolation Not Reportable 01/15/22 04:13 Dohle Bodies Not Reportable 01/15/22 04:13 Pelger-Huet Anomaly Not Reportable 01/15/22 04:13 Marina Rods Not Reportable 01/15/22 04:13 Platelet Estimate Consistent w auto 01/15/22 04:13 Clumped Platelets Not Reportable 01/15/22 04:13 Plt Clumps, EDTA Not Reportable 01/15/22 04:13 Large Platelets Not Reportable 01/15/22 04:13 Giant Platelets Not Reportable 01/15/22 04:13 Platelet Satelliting Not Reportable 01/15/22 04:13 Plt Morphology Comment Not Reportable 01/15/22 04:13 RBC Morphology Not Reportable 01/15/22 04:13 Dimorphic RBCs Not Reportable 01/15/22 04:13 Polychromasia 1+ 01/15/22 04:13 Hypochromasia Not Reportable 01/15/22 04:13 Poikilocytosis Not Reportable 01/15/22 04:13 Anisocytosis 1+ 01/15/22 04:13 Microcytosis Not Reportable 01/15/22 04:13 Macrocytosis Not Reportable 01/15/22 04:13 Spherocytes Not Reportable 01/15/22 04:13 Pappenheimer Bodies Not Reportable 01/15/22 04:13 Sickle Cells Not Reportable 01/15/22 04:13 Target Cells Not Reportable 01/15/22 04:13 Tear Drop Cells Not Reportable 01/15/22 04:13 Ovalocytes Not Reportable 01/15/22 04:13 Stomatocytes Rare 01/13/22 06:48 Helmet Cells Not Reportable 01/15/22 04:13 [place] Bodies Not Reportable 01/15/22 04:13 [place] Rings Not Reportable 01/15/22 04:13 [place] Cells Not Reportable 01/15/22 04:13 Bite Cells Not Reportable 01/15/22 04:13 Crenated Cell Not Reportable 01/15/22 04:13 Elliptocytes Not Reportable 01/15/22 04:13 Acanthocytes (Spur) Not Reportable 01/15/22 04:13 Rouleaux Not Reportable 01/15/22 04:13 Hemoglobin C Crystals Not Reportable 01/15/22 04:13 Schistocytes Not Reportable 01/15/22 04:13 Malaria parasites Not Reportable 01/15/22 04:13 Kevin Bodies Not Reportable 01/15/22 04:13 Hem Pathologist Commnt No 01/15/22 04:13 PT 14.3 Sec. (12.2-14.9) 01/11/22 21:41 INR 1.00 (0.87-1.13) 01/11/22 21:41 APTT 24.7 Sec. (24.2-36.6) 01/11/22 21:41 D-Dimer 792.24 ng/mlDDU (0-234) H 01/14/22 09:19 Sodium 144 mmol/L (137-145) 01/15/22 04:13 Potassium 3.2 mmol/L (3.6-5.0) L 01/15/22 04:13 Chloride 106.7 mmol/L (98-107) 01/15/22 04:13 Carbon Dioxide 26 mmol/L (22-30) 01/15/22 04:13 Anion Gap 15 mmol/L 01/15/22 04:13 BUN 13 mg/dL (7-17) 01/15/22 04:13 Creatinine 0.4 mg/dL (0.6-1.2) L 01/15/22 04:13 Estimated GFR > 60 ml/min 01/15/22 04:13 BUN/Creatinine Ratio 33 % 01/15/22 04:13 Glucose 132 mg/dL (65-100) H 01/15/22 04:13 POC Glucose 148 mg/dL (70-105) H 01/15/22 05:42 Lactic Acid 2.20 mmol/L (0.7-2.0) H* 01/12/22 00:35 Calcium 9.2 mg/dL (8.4-10.2) 01/15/22 04:13 Magnesium 2.10 mg/dL (1.7-2.3) 01/13/22 01:30 Ferritin 630.6 ng/mL (10.0-200.0) H 01/12/22 10:47 Total Bilirubin 0.20 mg/dL (0.1-1.2) 01/11/22 21:41 AST 11 units/L (5-40) 01/11/22 21:41 ALT 13 units/L (7-56) 01/11/22 21:41 Alkaline Phosphatase 79 units/L (35-129) 01/11/22 21:41 Lactate Dehydrogenase 206 units/L (91-180) H 01/12/22 10:47 Total Creatine Kinase 30 units/L (30-135) 01/11/22 21:41 CK-MB (CK-2) 2.7 ng/mL (0.0-4.0) 01/11/22 21:41 CK-MB (CK-2) Rel Index 9.0 (0-4) H 01/11/22 21:41 Troponin T 0.055 ng/mL (0.00-0.029) H D 01/12/22 19:04 C-Reactive Protein 12.60 mg/dL (0.00-1.30) H 01/12/22 10:47 Total Protein 7.6 g/dL (6.3-8.2) 01/11/22 21:41 Albumin 4.0 g/dL (3.9-5) 01/11/22 21:41 Albumin/Globulin Ratio 1.1 % 01/11/22 21:41 Triglycerides 128 mg/dL (2-149) 01/12/22 19:04 Cholesterol 96 mg/dL (50-199) 01/12/22 19:04 LDL Cholesterol Direct 26 mg/dL (50-130) L 01/12/22 19:04 HDL Cholesterol 47 mg/dL (40-59) 01/12/22 19:04 Cholesterol/HDL Ratio 2.04 % 01/12/22 19:04 Procalcitonin 9.47 ng/mL (<0.15) 01/12/22 10:47 Urine Color Yellow (Yellow) 01/14/22 07:59 Urine Turbidity Clear (Clear) 01/14/22 07:59 Urine pH 6.5 (5.0-7.0) 01/14/22 07:59 Ur Specific [place] 1.015 (1.003-1.030) 01/14/22 07:59 Urine Protein 30 mg/dl mg/dL (Negative) 01/14/22 07:59 Urine Glucose (UA) Negative mg/dL (Negative) 01/14/22 07:59 Urine Ketones Negative mg/dL (Negative) 01/14/22 07:59 Urine Blood Negative (Negative) 01/14/22 07:59 Urine Nitrite Negative (Negative) 01/14/22 07:59 Urine Bilirubin Negative (Negative) 01/14/22 07:59 Urine Urobilinogen < 2.0 mg/dL (<2.0) 01/14/22 07:59 Ur Leukocyte Esterase Moderate (Negative) 01/14/22 07:59 Urine WBC (Auto) 41.0 /HPF (0.0-6.0) H 01/14/22 07:59 Urine RBC (Auto) 22.0 /HPF (0.0-6.0) 01/14/22 07:59 U Epithel Cells (Auto) 1.0 /HPF (0-13.0) 01/14/22 07:59 Urine Mucus Few /HPF 01/14/22 07:59 Nasal Screen MRSA (PCR) Positive (Negative) 01/13/22 09:04 SARS-CoV-2 (PCR) Negative (Negative) 01/12/22 09:11 Microbiology: Microbiology 01/14/22 12:17 Peripheral/Venous Blood Culture - Preliminary Culture in Progress 01/14/22 11:16 Peripheral/Venous Blood Culture - Preliminary Culture in Progress Rosales/IV: Voiding Method External Female Catheter Active Medications - Current Medications Current Medications: Generic Name Dose Route Start Last Admin Trade Name Freq PRN Reason Stop Dose Admin Acetaminophen 650 mg 01/12/22 00:52 Acetaminophen 325 Mg Tab PO Q4H PRN Pain MILD(1-3)/Fever >100.5/FERRARI Lipase/Protease/Amylase 1 each 01/12/22 12:35 Lipase 10,500/Protease 25,000/Amylase 43,750 (Units) Dr Collier FEEDTUBE PRN PRN For Clogged Feeding Tube Dextrose 50 ml 01/12/22 00:52 Dextrose 50% In Water (25gm) 50 Ml Syringe IV Q30MIN PRN Hypoglycemia Protocol Heparin Sodium (Porcine) 5,000 unit 01/12/22 06:00 01/15/22 05:38 Heparin 5,000 Unit/1 Ml Vial SUB-Q 5,000 unit Q8HR CONNIE Administration Cefepime HCl 2 gm in 100 mls @ 200 mls/hr 01/12/22 02:00 01/15/22 02:13 Cefepime/Ns 2 Gm/100 Ml IV 01/16/22 14:29 200 mls/hr Q12H CONNIE Administration Protocol Vancomycin HCl 1 gm in 250 mls @ 166.667 mls/hr 01/13/22 00:00 01/14/22 23:33 Vancomycin/Ns 1 Gm/250 Ml IV 01/16/22 01:59 166.667 mls/hr Q24H CONNIE Administration Sodium Chloride 1,000 mls @ 75 mls/hr 01/14/22 10:00 01/15/22 02:14 Nacl 0.9% 1000 Ml IV 75 mls/hr DIRECT CONNIE Administration Insulin Human Lispro 0 unit 01/13/22 12:00 01/15/22 06:02 Insulin Lispro 100 Unit/Ml SUB-Q Not Given Q6HR CONNIE Protocol Magnesium Hydroxide 30 ml 01/12/22 00:52 Magnesium Hydroxide (Mom) Oral Liqd Udc PO Q4H PRN Constipation Morphine Sulfate 2 mg 01/12/22 00:52 Morphine 2 Mg/1 Ml Inj IV Q4H PRN Pain, Moderate (4-6) Morphine Sulfate 4 mg 01/12/22 00:52 Morphine 4 Mg/1 Ml Inj IV Q4H PRN Pain , Severe (7-10) Ondansetron HCl 4 mg 01/12/22 00:52 Ondansetron 4 Mg/2 Ml Inj IV Q8H PRN Nausea And Vomiting Simple Syrup 15 ml 01/12/22 12:35 Simple Syrup 15 Ml FEEDTUBE PRN PRN Hypoglycemia Simple Syrup 30 ml 01/12/22 12:35 Simple Syrup 15 Ml FEEDTUBE PRN PRN Hypoglycemia Sodium Bicarbonate 325 mg 01/12/22 12:35 Sodium Bicarbonate 325 Mg Tab FEEDTUBE PRN PRN For Clogged Feeding Tube Sodium Chloride 10 ml 01/12/22 10:00 01/14/22 23:15 Sodium Chloride 0.9% 10 Ml Flush Syringe IV 10 ml BID CONNIE Administration Sodium Chloride 10 ml 01/12/22 00:52 Sodium Chloride 0.9% 10 Ml Flush Syringe IV PRN PRN LINE FLUSH Nutrition/Malnutrition Assess - Dietary Evaluation Nutrition/Malnutrition Findings: Nutrition Notes Start: 01/12/22 12:03 Freq: Status: Active Protocol: Document 01/14/22 11:07 CARMEN (Rec: 01/14/22 11:29 CAMREN [id number]) Nutrition Notes Initial or Follow up Reassessment Current Diagnosis Coronary Artery Disease, Diabetes,Sepsis,Hypertension, Stroke,Hyperlipidemia Other Pertinent Diagnosis Seizure, UTI, Hypokalemia, Pneumonia, GERD, Dementia... Current Diet TF-Glucerna 1.2 Sarbjit @ 50 ml/hr (from D 01/12). Labs/Tests 01/14: Cl 110.8, Crea 0.5, Glu 148. Pertinent Medications 01/14: Nutritionally unremarkable. Height 5 ft 4 in Weight 72.575 kg [place] Body Weight (kg) 54.54 BMI 27.4 Intake Prior to Admission Good Weight change and time frame No body weight change reported in 2 days. 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 Weight Status Overweight Subjective/Other Information RD consult for routine F/U on TF tolerance/continuation assessment. TF continues as prescribed, and well tolerated, according to RN notes. Pt is on Room Air, O2 saturation @ 100%, according to Vital Signs note. Pt has missing teeth, according to Physical Assessment History notes. Pt presents an unspecified Dryness area of concern, according to Physical Assessment History notes. Percent of energy/protein needs met: Prescribed TF-Glucerna 1.2 Sarbjit @ 50 ml/hr provides for energy/protein needs (1,450 Kcal/73 g) during LOS, 95% Kcal; 100% AA. 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 No Is Patient Ambulatory and/or Out of Bed No REE-([facility]-confined to bed) 1400.088 Kcal/Kg value to use for calculation 21 Approximate Energy Requirements Using 1524 kcal/Kg Calculation Used for Recommendations Kcal/kg Additional Notes Protein: 1-1.2 g/Kg ABW; 73-88 g/day. Fluids: 1 ml/Kcal, or as per MD. Nutrition Intervention Nutrition Support: Continue TF-Glucerna 1.2 Sarbjit @ 50 ml/hr. Flush: 100 ml water Q 4 hr, or as per MD. Kcal 1,450 Protein (gm) 73 Carbohydrates (gm) 138 Fat (gm) 73 Fluid (mL) 973 Fiber (gm) 19 % RDI: 95% Kcal; 100% AA. Goal #1 Provide at least 75% of energy /protein needs through Enteral Feeding during LOS. Goal #2 Maintain body weight within +/ -3% of admission body weight during LOS. Follow-Up By: 01/21/22 Additional Comments Continue monitoring TF tolerance and BM.
--- NOTE | 2022-01-15 12:14 | Progress Note ---
Assessment and Plan Acute hypoxic respiratory failure: Secondary to pneumonia. Multifocal pneumonia Sepsis Dementia Elevated troponin Reactive thrombocytosis Elevated D-dimer Elevated troponin-possibly demand ischemia CXR ordered to follow up on multifocal infiltrates -Continue to titrate supplemental oxygen to keep SpO2 90-92% -Antibiotics for HACP- per ID -Conservative fluid management as tolerated by blood pressure and renal function -VTE prophylaxis -Aspiration precautions, HOB >30 -Bronchodilators prn -Continue enteric nutritional support -ABG,clinically indicated -Avoid delirium, maintain sleep-wake cycle. Patient has baseline dementia and is at risk for delirium -Mobility, off loading and frequent turning per hospital protocol to prevent pressure ulcers -Influenza and pneumonia vaccination per protocol -Chronic home medications as clinically indicated All other care -per Attending and other provider relations consultant physicians Discharge planning Subjective Date of service: 01/15/22 Principal diagnosis: Bilateral pneumonia Interval history: Follow up for: acute hypoxic resp failure; multifocal pneumonia; Sepsis Seen and examined. Vitals, labs, medications, chart and imaging reviewed. No acute overnight events reported. Discussed with nursing and respiratory staff. No fevers, she is on supplemental oxygen at 2L/min, slow speech Objective - Exam Narrative Exam: Constitutional: awake, doesn't follow commands Head, Ears, Nose: Normocephalic, atraumatic. External ears, nose normal Eyes: Conjunctivae/corneas clear. No icterus. No ptosis. Neck: Supple, no meningeal signs Oral: edentulous Cardiovascular: S1, S2 + Respiratory: clear b/l GI: Soft, non-tender; bowel sounds normal. No peritoneal signs Musculoskeletal: No pedal edema, no cyanosis. Foot drop Hem/Lymphatic: No palpable cervical or supraclavicular nodes. Psych: Calm, no agitation Neurological: awake Vital Signs - 12hr 01/15/22 01/15/22 01/15/22 03:49 04:38 08:32 Temperature 98.9 F Pulse Rate 88 Respiratory 16 Rate Blood Pressure 148/83 O2 Sat by Pulse 100 100 100 Oximetry CBC and BMP: 01/15/22 04:13 01/15/22 04:13 ABG, PT/INR, D-dimer: PT/INR, D-dimer PT 14.3 Sec. (12.2-14.9) 01/11/22 21:41 INR 1.00 (0.87-1.13) 06/07/22 21:41 D-Dimer 792.24 ng/mlDDU (0-234) H 01/14/22 09:19 Abnormal lab findings: Abnormal Labs 01/11/22 01/11/22 01/11/22 21:41 21:41 21:41 WBC 15.2 H RBC Hgb Hct MCH RDW 20.6 H Plt Count 450 H Seg Neuts % (Manual) 91.0 H Lymphocytes % (Manual) 6.0 L Monocytes % (Manual) Eosinophils % (Manual) Nucleated RBC % Seg Neutrophils # Man 13.8 H Lymphocytes # (Manual) 0.9 L Monocytes # (Manual) Eosinophils # (Manual) D-Dimer 1128.67 H Potassium Chloride BUN 25 H Creatinine Glucose 207 H POC Glucose Lactic Acid Ferritin Lactate Dehydrogenase CK-MB (CK-2) Rel Index Troponin T C-Reactive Protein LDL Cholesterol Direct Urine WBC (Auto) 01/11/22 01/11/22 01/12/22 21:41 23:30 00:35 WBC RBC Hgb Hct MCH RDW Plt Count Seg Neuts % (Manual) Lymphocytes % (Manual) Monocytes % (Manual) Eosinophils % (Manual) Nucleated RBC % Seg Neutrophils # Man Lymphocytes # (Manual) Monocytes # (Manual) Eosinophils # (Manual) D-Dimer Potassium Chloride BUN Creatinine Glucose POC Glucose Lactic Acid 2.10 H* 2.20 H* Ferritin Lactate Dehydrogenase CK-MB (CK-2) Rel Index 9.0 H Troponin T 0.091 H C-Reactive Protein LDL Cholesterol Direct Urine WBC (Auto) 01/12/22 01/12/22 01/12/22 00:35 07:43 10:47 WBC RBC Hgb Hct MCH RDW Plt Count Seg Neuts % (Manual) Lymphocytes % (Manual) Monocytes % (Manual) Eosinophils % (Manual) Nucleated RBC % Seg Neutrophils # Man Lymphocytes # (Manual) Monocytes # (Manual) Eosinophils # (Manual) D-Dimer 1304.06 H Potassium Chloride BUN Creatinine Glucose POC Glucose 112 H Lactic Acid Ferritin Lactate Dehydrogenase CK-MB (CK-2) Rel Index Troponin T 0.105 H* C-Reactive Protein LDL Cholesterol Direct Urine WBC (Auto) 01/12/22 01/12/22 01/12/22 10:47 10:47 12:42 WBC RBC Hgb Hct MCH RDW Plt Count Seg Neuts % (Manual) Lymphocytes % (Manual) Monocytes % (Manual) Eosinophils % (Manual) Nucleated RBC % Seg Neutrophils # Man Lymphocytes # (Manual) Monocytes # (Manual) Eosinophils # (Manual) D-Dimer Potassium Chloride BUN Creatinine Glucose 121 H POC Glucose 116 H Lactic Acid Ferritin 630.6 H Lactate Dehydrogenase 206 H CK-MB (CK-2) Rel Index Troponin T C-Reactive Protein 12.60 H LDL Cholesterol Direct Urine WBC (Auto) 01/12/22 01/12/22 01/12/22 16:06 19:04 22:50 WBC RBC Hgb Hct MCH RDW Plt Count Seg Neuts % (Manual) Lymphocytes % (Manual) Monocytes % (Manual) Eosinophils % (Manual) Nucleated RBC % Seg Neutrophils # Man Lymphocytes # (Manual) Monocytes # (Manual) Eosinophils # (Manual) D-Dimer Potassium Chloride BUN Creatinine Glucose POC Glucose 111 H 108 H Lactic Acid Ferritin Lactate Dehydrogenase CK-MB (CK-2) Rel Index Troponin T 0.055 H D C-Reactive Protein LDL Cholesterol Direct 26 L Urine WBC (Auto) 01/13/22 01/13/22 01/13/22 05:47 06:48 06:48 WBC RBC Hgb 9.8 L Hct MCH 26 L RDW 20.6 H Plt Count Seg Neuts % (Manual) 77.0 H Lymphocytes % (Manual) 9.0 L Monocytes % (Manual) Eosinophils % (Manual) 7.0 H Nucleated RBC % 1.0 H Seg Neutrophils # Man Lymphocytes # (Manual) 0.7 L Monocytes # (Manual) Eosinophils # (Manual) 0.6 H D-Dimer Potassium 2.7 L* D Chloride BUN Creatinine 0.5 L Glucose 128 H POC Glucose 118 H Lactic Acid Ferritin Lactate Dehydrogenase CK-MB (CK-2) Rel Index Troponin T C-Reactive Protein LDL Cholesterol Direct Urine WBC (Auto) 01/13/22 01/13/22 01/13/22 08:13 12:33 16:09 WBC RBC Hgb Hct MCH RDW Plt Count Seg Neuts % (Manual) Lymphocytes % (Manual) Monocytes % (Manual) Eosinophils % (Manual) Nucleated RBC % Seg Neutrophils # Man Lymphocytes # (Manual) Monocytes # (Manual) Eosinophils # (Manual) D-Dimer Potassium Chloride BUN Creatinine Glucose POC Glucose 130 H 152 H 154 H Lactic Acid Ferritin Lactate Dehydrogenase CK-MB (CK-2) Rel Index Troponin T C-Reactive Protein LDL Cholesterol Direct Urine WBC (Auto) 01/13/22 01/14/22 01/14/22 21:53 07:03 07:59 WBC RBC Hgb Hct MCH RDW Plt Count Seg Neuts % (Manual) Lymphocytes % (Manual) Monocytes % (Manual) Eosinophils % (Manual) Nucleated RBC % Seg Neutrophils # Man Lymphocytes # (Manual) Monocytes # (Manual) Eosinophils # (Manual) D-Dimer Potassium Chloride BUN Creatinine Glucose POC Glucose 130 H 148 H Lactic Acid Ferritin Lactate Dehydrogenase CK-MB (CK-2) Rel Index Troponin T C-Reactive Protein LDL Cholesterol Direct Urine WBC (Auto) 41.0 H 01/14/22 01/14/22 01/14/22 09:19 09:19 11:48 WBC RBC Hgb Hct MCH RDW Plt Count Seg Neuts % (Manual) Lymphocytes % (Manual) Monocytes % (Manual) Eosinophils % (Manual) Nucleated RBC % Seg Neutrophils # Man Lymphocytes # (Manual) Monocytes # (Manual) Eosinophils # (Manual) D-Dimer 792.24 H Potassium Chloride 110.8 H BUN Creatinine 0.5 L Glucose 148 H POC Glucose 163 H Lactic Acid Ferritin Lactate Dehydrogenase CK-MB (CK-2) Rel Index Troponin T C-Reactive Protein LDL Cholesterol Direct Urine WBC (Auto) 01/14/22 01/14/22 01/15/22 16:06 21:51 04:13 WBC RBC 3.25 L Hgb 8.8 L Hct 27.2 L MCH 27 L RDW 21.6 H Plt Count Seg Neuts % (Manual) Lymphocytes % (Manual) Monocytes % (Manual) 19.0 H Eosinophils % (Manual) Nucleated RBC % Seg Neutrophils # Man Lymphocytes # (Manual) Monocytes # (Manual) 1.4 H Eosinophils # (Manual) D-Dimer Potassium Chloride BUN Creatinine Glucose POC Glucose 133 H 137 H Lactic Acid Ferritin Lactate Dehydrogenase CK-MB (CK-2) Rel Index Troponin T C-Reactive Protein LDL Cholesterol Direct Urine WBC (Auto) 01/15/22 01/15/22 01/15/22 04:13 05:42 11:34 WBC RBC Hgb Hct MCH RDW Plt Count Seg Neuts % (Manual) Lymphocytes % (Manual) Monocytes % (Manual) Eosinophils % (Manual) Nucleated RBC % Seg Neutrophils # Man Lymphocytes # (Manual) Monocytes # (Manual) Eosinophils # (Manual) D-Dimer Potassium 3.2 L Chloride BUN Creatinine 0.4 L Glucose 132 H POC Glucose 148 H 156 H Lactic Acid Ferritin Lactate Dehydrogenase CK-MB (CK-2) Rel Index Troponin T C-Reactive Protein LDL Cholesterol Direct Urine WBC (Auto) Chest x-ray: image reviewed Allied health notes reviewed: RT
--- NOTE | 2022-01-15 12:39 | XRay Report ---
CHEST 1 VIEW INDICATION / CLINICAL INFORMATION: pneumonia. COMPARISON: 01/11/2022 FINDINGS: SUPPORT DEVICES: None. HEART / MEDIASTINUM: No significant abnormality. LUNGS / PLEURA: No significant interval change in right greater than left mid and lower lung zone air space opacities. No significant effusion. No pneumothorax. ADDITIONAL FINDINGS: No significant additional findings. IMPRESSION: 1. No significant change. Signer Name: Rodrick Mcdonald MD Signed: 01/15/2022 12:35 PM Workstation Name: [id number]
[2022-01-15] MEDS ORDERED: traMADol 50 MG TAB PO SCH (18:00)
[2022-01-15] MEDS ORDERED: traMADol 50 MG TAB PO PRN (18:14)
[2022-01-15] MEDS: levETIRAcetam 500 MG/5 ML ORAL LIQD FEEDTUBE SCH (22:10)
[2022-01-15] MEDS: SENNOSIDES/DOCUSATE SODIUM 8.6/50 MG TAB FEEDTUBE SCH (22:11)
[2022-01-15] MEDS: ZINC SULFATE 220 MG CAP PO SCH (22:11)
[2022-01-15] MEDS: LACOSAMIDE 100 MG TAB PO SCH (22:11)
[2022-01-15] MEDS: ASCORBIC ACID 500 MG TAB PO SCH (22:12)
[2022-01-15] MEDS: METOPROLOL TARTRATE 25 MG TAB PO SCH (22:21)
[2022-01-15] MEDS: INSULIN GLARGINE 100 UNITS/ML SUB-Q SCH (23:55)
[2022-01-16] MEDS: VANCOMYCIN/NS 1 GM/250 ML 1 GM/250 ML BAG IV SCH (00:39)
[2022-01-16] MEDS: INSULIN LISPRO 100 UNIT/ML SUB-Q SCH ×5 (00:39→17:54)
[2022-01-16] MEDS: CEFEPIME/NS 2 GM/100 ML 2 GM/100 ML BAG IV SCH ×2 (02:54→13:27)
[2022-01-16] MEDS: HEPARIN 5,000 UNIT/1 ML VIAL SUB-Q SCH ×3 (05:50→21:43)
[2022-01-16] MEDS: METOPROLOL TARTRATE 25 MG TAB PO SCH ×3 (05:50→21:45)
[2022-01-16] MEDS: SODIUM CHLORIDE 0.9% 1000 ML 1,000 ML IV SCH ×2 (08:00→21:52)
[2022-01-16] MEDS: POLYETHYLENE GLYCOL 3350 17 GM POWDER PO SCH (09:32)
[2022-01-16] MEDS: levETIRAcetam 500 MG/5 ML ORAL LIQD FEEDTUBE SCH ×2 (09:33→21:46)
[2022-01-16] MEDS: LINAGLIPTIN 5 MG TAB PO SCH (09:33)
[2022-01-16] MEDS: FERROUS SULFATE 325 MG TAB PO SCH (09:33)
[2022-01-16] MEDS: SENNOSIDES/DOCUSATE SODIUM 8.6/50 MG TAB FEEDTUBE SCH ×2 (09:33→21:45)
[2022-01-16] MEDS: ZINC SULFATE 220 MG CAP PO SCH ×2 (09:33→21:45)
[2022-01-16] MEDS: CHOLECALCIFEROL (VIT D3) 1000 UNIT (25 mcg) TAB PO SCH (09:33)
[2022-01-16] MEDS: ASCORBIC ACID 500 MG TAB PO SCH ×2 (09:33→21:46)
[2022-01-16] MEDS: LACOSAMIDE 100 MG TAB PO SCH ×2 (09:34→21:45)
[2022-01-16] MEDS: DEXAMETHASONE 2 MG TAB PO SCH (09:34)
[2022-01-16] MEDS: ASPIRIN EC 81 MG TAB PO SCH (09:34)
[2022-01-16] MEDS: LANSOPRAZOLE 30 MG SOLUTAB FEEDTUBE SCH (09:34)
[2022-01-16] MEDS: allopurinoL 300 MG TAB PO SCH (09:35)
[2022-01-16] MEDS: amLODIPine 10 MG TAB PO SCH (09:38)
[2022-01-16] MEDS ORDERED: NON-FORMULARY EACH (Lovastatin [Altoprev] 40 MG Tab.Er.24h) PO SCH (10:00)
[2022-01-16] MEDS ORDERED: DEXAMETHASONE 6 MG PO SCH (10:00)
[2022-01-16] MEDS: INSULIN GLARGINE 100 UNITS/ML SUB-Q SCH (22:51)
[2022-01-17] MEDS: METOPROLOL TARTRATE 25 MG TAB PO SCH ×3 (05:18→22:41)
[2022-01-17] MEDS: HEPARIN 5,000 UNIT/1 ML VIAL SUB-Q SCH ×3 (05:19→22:43)
[2022-01-17] MEDS: INSULIN LISPRO 100 UNIT/ML SUB-Q SCH ×3 (06:32→17:57)
[2022-01-17] MEDS: CHOLECALCIFEROL (VIT D3) 1000 UNIT (25 mcg) TAB PO SCH (09:09)
[2022-01-17] MEDS: SENNOSIDES/DOCUSATE SODIUM 8.6/50 MG TAB FEEDTUBE SCH ×2 (09:09→22:41)
[2022-01-17] MEDS: levETIRAcetam 500 MG/5 ML ORAL LIQD FEEDTUBE SCH ×2 (09:09→22:41)
[2022-01-17] MEDS: FERROUS SULFATE 325 MG TAB PO SCH (09:09)
[2022-01-17] MEDS: ASPIRIN EC 81 MG TAB PO SCH (09:09)
[2022-01-17] MEDS: ZINC SULFATE 220 MG CAP PO SCH ×2 (09:10→22:41)
[2022-01-17] MEDS: DEXAMETHASONE 2 MG TAB PO SCH (09:10)
[2022-01-17] MEDS: ASCORBIC ACID 500 MG TAB PO SCH ×2 (09:10→22:42)
--- NOTE | 2022-01-17 09:48 | Progress Note ---
Assessment and Plan Assessment and plan: 86-year-old female [facility] resident with PMH of seizure disorder, prior CVA, hypertension, dementia with admitted for dyspnea. Patient had a chest x- ray and CTA that revealed multifocal pneumonia. No PE. Patient was noted to have leukocytosis with WBC 15.2 and lactate of 2.2. Sepsis. Bilateral pneumonia. COVID PCR negative UTI. Hypokalemia Dementia. Elevated troponin. Reactive thrombocytosis. Sinus tachycardia CAD Hypertension Seizure disorder History CVA 01/13/2022. ID started empiric antibiotics of cefepime and vancomycin. We will follow-up blood cultures. Replete potassium and check magnesium. Follow-up BMP in a.m. 01/14/2022. Continue IV antibiotics per ID recommendations for total of 5 days. Continue to follow-up cultures. Continue empiric medical therapy with topical nitrates, beta-raheem and antiplatelet therapy. Cardiology following. Urinalysis did reveal UTI. 01/15/2022. Continue IV antibiotics per ID recommendations for total of 5 days. Continue to follow-up cultures. Continue empiric medical therapy with topical nitrates, beta-raheem and antiplatelet therapy. Cardiology following. Urinalysis did reveal UTI. 01/16/2022. Blood cultures with no growth x48 hours. Continue empiric medical therapy with topical nitrates, beta-raheem and antiplatelet therapy. Cardiology following. Urinalysis did reveal UTI. 01/17/2022. Blood cultures remain negative. Cefepime and vancomycin completed. We will start Levaquin 500 mg daily to complete 5 days per ID recommendations. History Interval history: No new issues overnight Hospitalist Physical - Constitutional Vitals: Temp Pulse Resp BP Pulse Ox 97.7 F 81 20 141/79 95 01/17/22 04:51 01/17/22 05:18 01/17/22 04:51 01/17/22 05:18 01/17/22 04:51 General appearance: Present: no acute distress, cachectic, other (Noncommunicative, frail, chronically ill-appearing, contracted) - EENT Eyes: Present: PERRL, EOM intact ENT: hearing intact, clear oral mucosa, dentition normal - Neck Neck: Present: supple, normal ROM - Respiratory Respiratory effort: normal Respiratory: bilateral: CTA - Cardiovascular Rhythm: regular Heart Sounds: Present: S1 & S2. Absent: gallop, rub - Extremities Extremities: no ischemia, No edema, Full ROM - Abdominal General gastrointestinal: soft, non-tender, non-distended, normal bowel sounds - Integumentary Integumentary: Present: clear, warm, dry - Neurologic Neurologic: CNII-XII intact, moves all extremities HEART Score - HEART Score Troponin: Troponin T 0.055 ng/mL (0.00-0.029) H D 01/12/22 19:04 Results - Labs CBC & Chem 7: 01/15/22 04:13 01/15/22 04:13 Labs: Laboratory Last Values WBC 7.5 K/mm3 (4.5-11.0) 01/15/22 04:13 RBC 3.25 M/mm3 (3.65-5.03) L 01/15/22 04:13 Hgb 8.8 gm/dl (10.1-14.3) L 01/15/22 04:13 Hct 27.2 % (30.3-42.9) L 01/15/22 04:13 MCV 84 fl (79-97) 01/15/22 04:13 MCH 27 pg (28-32) L 01/15/22 04:13 MCHC 32 % (30-34) 01/15/22 04:13 RDW 21.6 % (13.2-15.2) H 01/15/22 04:13 Plt Count 428 K/mm3 (140-440) 01/15/22 04:13 Add Manual Diff Complete 01/15/22 04:13 Total Counted 100 01/15/22 04:13 Seg Neuts % (Manual) 60.0 % (40.0-70.0) 01/15/22 04:13 Band Neutrophils % 0 % 01/15/22 04:13 Lymphocytes % (Manual) 17.0 % (13.4-35.0) 01/15/22 04:13 Reactive Lymphs % (Man) 0 % 01/15/22 04:13 Monocytes % (Manual) 19.0 % (0.0-7.3) H 01/15/22 04:13 Eosinophils % (Manual) 3.0 % (0.0-4.3) 01/15/22 04:13 Basophils % (Manual) 0 % (0.0-1.8) 01/15/22 04:13 Metamyelocytes % 0 % 01/15/22 04:13 Myelocytes % 0 % 01/15/22 04:13 Promyelocytes % 1.0 % 01/15/22 04:13 Blast Cells % 0 % 01/15/22 04:13 Nucleated RBC % Not Reportable 01/15/22 04:13 Seg Neutrophils # Man 4.5 K/mm3 (1.8-7.7) 01/15/22 04:13 Band Neutrophils # 0.0 K/mm3 01/15/22 04:13 Lymphocytes # (Manual) 1.3 K/mm3 (1.2-5.4) 01/15/22 04:13 Abs React Lymphs (Man) 0.0 K/mm3 01/15/22 04:13 Monocytes # (Manual) 1.4 K/mm3 (0.0-0.8) H 01/15/22 04:13 Eosinophils # (Manual) 0.2 K/mm3 (0.0-0.4) 01/15/22 04:13 Basophils # (Manual) 0.0 K/mm3 (0.0-0.1) 01/15/22 04:13 Metamyelocytes # 0.0 K/mm3 01/15/22 04:13 Myelocytes # 0.0 K/mm3 01/15/22 04:13 Promyelocytes # 0.1 K/mm3 01/15/22 04:13 Blast Cells # 0.0 K/mm3 01/15/22 04:13 WBC Morphology Not Reportable 01/15/22 04:13 Hypersegmented Neuts Not Reportable 01/15/22 04:13 Hyposegmented Neuts Not Reportable 01/15/22 04:13 Hypogranular Neuts Not Reportable 01/15/22 04:13 Smudge Cells Not Reportable 01/15/22 04:13 Toxic Granulation Not Reportable 01/15/22 04:13 Toxic Vacuolation Not Reportable 01/15/22 04:13 Dohle Bodies Not Reportable 01/15/22 04:13 Pelger-Huet Anomaly Not Reportable 01/15/22 04:13 Marina Rods Not Reportable 01/15/22 04:13 Platelet Estimate Consistent w auto 01/15/22 04:13 Clumped Platelets Not Reportable 01/15/22 04:13 Plt Clumps, EDTA Not Reportable 01/15/22 04:13 Large Platelets Not Reportable 01/15/22 04:13 Giant Platelets Not Reportable 01/15/22 04:13 Platelet Satelliting Not Reportable 01/15/22 04:13 Plt Morphology Comment Not Reportable 01/15/22 04:13 RBC Morphology Not Reportable 01/15/22 04:13 Dimorphic RBCs Not Reportable 01/15/22 04:13 Polychromasia 1+ 01/15/22 04:13 Hypochromasia Not Reportable 01/15/22 04:13 Poikilocytosis Not Reportable 01/15/22 04:13 Anisocytosis 1+ 01/15/22 04:13 Microcytosis Not Reportable 01/15/22 04:13 Macrocytosis Not Reportable 01/15/22 04:13 Spherocytes Not Reportable 01/15/22 04:13 Pappenheimer Bodies Not Reportable 01/15/22 04:13 Sickle Cells Not Reportable 01/15/22 04:13 Target Cells Not Reportable 01/15/22 04:13 Tear Drop Cells Not Reportable 01/15/22 04:13 Ovalocytes Not Reportable 01/15/22 04:13 Stomatocytes Rare 01/13/22 06:48 Helmet Cells Not Reportable 01/15/22 04:13 [place] Bodies Not Reportable 01/15/22 04:13 [place] Rings Not Reportable 01/15/22 04:13 [place] Cells Not Reportable 01/15/22 04:13 Bite Cells Not Reportable 01/15/22 04:13 Crenated Cell Not Reportable 01/15/22 04:13 Elliptocytes Not Reportable 01/15/22 04:13 Acanthocytes (Spur) Not Reportable 01/15/22 04:13 Rouleaux Not Reportable 01/15/22 04:13 Hemoglobin C Crystals Not Reportable 01/15/22 04:13 Schistocytes Not Reportable 01/15/22 04:13 Malaria parasites Not Reportable 01/15/22 04:13 Kevin Bodies Not Reportable 01/15/22 04:13 Hem Pathologist Commnt No 01/15/22 04:13 PT 14.3 Sec. (12.2-14.9) 01/11/22 21:41 INR 1.00 (0.87-1.13) 01/11/22 21:41 APTT 24.7 Sec. (24.2-36.6) 01/11/22 21:41 D-Dimer 792.24 ng/mlDDU (0-234) H 01/14/22 09:19 Sodium 144 mmol/L (137-145) 01/15/22 04:13 Potassium 3.2 mmol/L (3.6-5.0) L 01/15/22 04:13 Chloride 106.7 mmol/L (98-107) 01/15/22 04:13 Carbon Dioxide 26 mmol/L (22-30) 01/15/22 04:13 Anion Gap 15 mmol/L 01/15/22 04:13 BUN 13 mg/dL (7-17) 01/15/22 04:13 Creatinine 0.4 mg/dL (0.6-1.2) L 01/15/22 04:13 Estimated GFR > 60 ml/min 01/15/22 04:13 BUN/Creatinine Ratio 33 % 01/15/22 04:13 Glucose 132 mg/dL (65-100) H 01/15/22 04:13 POC Glucose 130 mg/dL (70-105) H 01/17/22 06:12 Lactic Acid 2.20 mmol/L (0.7-2.0) H* 01/12/22 00:35 Calcium 9.2 mg/dL (8.4-10.2) 01/15/22 04:13 Magnesium 2.10 mg/dL (1.7-2.3) 01/13/22 01:30 Ferritin 630.6 ng/mL (10.0-200.0) H 01/12/22 10:47 Total Bilirubin 0.20 mg/dL (0.1-1.2) 01/11/22 21:41 AST 11 units/L (5-40) 01/11/22 21:41 ALT 13 units/L (7-56) 01/11/22 21:41 Alkaline Phosphatase 79 units/L (35-129) 01/11/22 21:41 Lactate Dehydrogenase 206 units/L (91-180) H 01/12/22 10:47 Total Creatine Kinase 30 units/L (30-135) 01/11/22 21:41 CK-MB (CK-2) 2.7 ng/mL (0.0-4.0) 01/11/22 21:41 CK-MB (CK-2) Rel Index 9.0 (0-4) H 01/11/22 21:41 Troponin T 0.055 ng/mL (0.00-0.029) H D 01/12/22 19:04 C-Reactive Protein 12.60 mg/dL (0.00-1.30) H 01/12/22 10:47 Total Protein 7.6 g/dL (6.3-8.2) 01/11/22 21:41 Albumin 4.0 g/dL (3.9-5) 01/11/22 21:41 Albumin/Globulin Ratio 1.1 % 01/11/22 21:41 Triglycerides 128 mg/dL (2-149) 01/12/22 19:04 Cholesterol 96 mg/dL (50-199) 01/12/22 19:04 LDL Cholesterol Direct 26 mg/dL (50-130) L 01/12/22 19:04 HDL Cholesterol 47 mg/dL (40-59) 01/12/22 19:04 Cholesterol/HDL Ratio 2.04 % 01/12/22 19:04 Procalcitonin 9.47 ng/mL (<0.15) 01/12/22 10:47 Urine Color Yellow (Yellow) 01/14/22 07:59 Urine Turbidity Clear (Clear) 01/14/22 07:59 Urine pH 6.5 (5.0-7.0) 01/14/22 07:59 Ur Specific [place] 1.015 (1.003-1.030) 01/14/22 07:59 Urine Protein 30 mg/dl mg/dL (Negative) 01/14/22 07:59 Urine Glucose (UA) Negative mg/dL (Negative) 01/14/22 07:59 Urine Ketones Negative mg/dL (Negative) 01/14/22 07:59 Urine Blood Negative (Negative) 01/14/22 07:59 Urine Nitrite Negative (Negative) 01/14/22 07:59 Urine Bilirubin Negative (Negative) 01/14/22 07:59 Urine Urobilinogen < 2.0 mg/dL (<2.0) 01/14/22 07:59 Ur Leukocyte Esterase Moderate (Negative) 01/14/22 07:59 Urine WBC (Auto) 41.0 /HPF (0.0-6.0) H 01/14/22 07:59 Urine RBC (Auto) 22.0 /HPF (0.0-6.0) 01/14/22 07:59 U Epithel Cells (Auto) 1.0 /HPF (0-13.0) 01/14/22 07:59 Urine Mucus Few /HPF 01/14/22 07:59 Nasal Screen MRSA (PCR) Positive (Negative) 01/13/22 09:04 SARS-CoV-2 (PCR) Negative (Negative) 01/12/22 09:11 Microbiology: Microbiology 01/14/22 12:17 Peripheral/Venous Blood Culture - Preliminary NO GROWTH AFTER 48 HOURS 01/14/22 11:16 Peripheral/Venous Blood Culture - Preliminary NO GROWTH AFTER 48 HOURS 01/14/22 07:59 Urine,Clean Catch Urine Culture - Final [place]/IV: Voiding Method External Female Catheter Active Medications - Current Medications Current Medications: Generic Name Dose Route Start Last Admin Trade Name Freq PRN Reason Stop Dose Admin Acetaminophen 650 mg 01/12/22 00:52 Acetaminophen 325 Mg Tab PO Q4H PRN Pain MILD(1-3)/Fever >100.5/FERRARI Allopurinol 300 mg 01/16/22 10:00 01/16/22 09:35 Allopurinol 300 Mg Tab PO 300 mg QDAY CONNIE Administration Amlodipine Besylate 10 mg 01/16/22 10:00 01/16/22 09:38 Amlodipine 10 Mg Tab PO 10 mg DAILY CONNIE Administration Lipase/Protease/Amylase 1 each 01/12/22 12:35 Lipase 10,500/Protease 25,000/Amylase 43,750 (Units) Dr Collier FEEDTUBE PRN PRN For Clogged Feeding Tube Ascorbic Acid 500 mg 01/15/22 22:00 01/17/22 09:10 Ascorbic Acid 500 Mg Tab PO 500 mg BID CONNIE Administration Aspirin 81 mg 01/16/22 10:00 01/17/22 09:09 Aspirin Ec 81 Mg Tab PO 81 mg DAILY CONNIE Administration Atorvastatin Calcium 20 mg 01/15/22 22:00 01/16/22 21:45 Atorvastatin 20 Mg Tab PO 20 mg QHS CONNIE Administration Cholecalciferol 1,000 unit 01/16/22 10:00 01/17/22 09:09 Cholecalciferol (Vit D3) 1000 Unit (25 Mcg) Tab PO 1,000 unit QDAY CONNIE Administration Dexamethasone 6 mg 01/16/22 10:00 01/17/22 09:10 Dexamethasone 2 Mg Tab PO 6 mg QDAY CONNIE Administration Dextrose 50 ml 01/12/22 00:52 Dextrose 50% In Water (25gm) 50 Ml Syringe IV Q30MIN PRN Hypoglycemia Protocol Ferrous Sulfate 325 mg 01/16/22 10:00 01/17/22 09:09 Ferrous Sulfate 325 Mg Tab PO 325 mg DAILY CONNIE Administration Heparin Sodium (Porcine) 5,000 unit 01/12/22 06:00 01/17/22 05:19 Heparin 5,000 Unit/1 Ml Vial SUB-Q 5,000 unit Q8HR CONNIE Administration Sodium Chloride 1,000 mls @ 75 mls/hr 01/14/22 10:00 01/16/22 21:52 Nacl 0.9% 1000 Ml IV 75 mls/hr DIRECT CONNIE Administration Insulin Glargine 10 units 01/15/22 22:00 01/16/22 22:51 Insulin Glargine 100 Units/Ml SUB-Q 10 units QHS CONNIE Administration Insulin Human Lispro 0 unit 01/13/22 12:00 01/17/22 06:32 Insulin Lispro 100 Unit/Ml SUB-Q Not Given Q6HR CONNIE Protocol Lacosamide 100 mg 01/15/22 22:00 01/16/22 21:45 Lacosamide 100 Mg Tab PO 100 mg Q12HR CONNIE Administration Lansoprazole 30 mg 01/16/22 10:00 01/16/22 09:34 Lansoprazole 30 Mg Solutab FEEDTUBE 30 mg QDAY CONNIE Administration Levetiracetam 1,000 mg 01/15/22 22:00 01/17/22 09:09 Levetiracetam 500 Mg/5 Ml Oral Liqd FEEDTUBE 1,000 mg BID CONNIE Administration Linagliptin 5 mg 01/16/22 08:00 01/16/22 09:33 Linagliptin 5 Mg Tab PO 5 mg QAMDIAB CONNIE Administration Magnesium Hydroxide 30 ml 01/12/22 00:52 Magnesium Hydroxide (Mom) Oral Liqd Udc PO Q4H PRN Constipation Metoprolol Tartrate 25 mg 01/15/22 22:00 01/17/22 05:18 Metoprolol Tartrate 25 Mg Tab PO 25 mg Q8HR CONNIE Administration Morphine Sulfate 2 mg 01/12/22 00:52 Morphine 2 Mg/1 Ml Inj IV Q4H PRN Pain, Moderate (4-6) Morphine Sulfate 4 mg 01/12/22 00:52 Morphine 4 Mg/1 Ml Inj IV Q4H PRN Pain , Severe (7-10) Ondansetron HCl 4 mg 01/12/22 00:52 Ondansetron 4 Mg/2 Ml Inj IV Q8H PRN Nausea And Vomiting Polyethylene Glycol 17 gm 01/16/22 10:00 01/16/22 09:32 Polyethylene Glycol 3350 17 Gm Powder PO 17 gm QDAY CONNIE Administration Senna/Docusate Sodium 2 tab 01/15/22 22:00 01/17/22 09:09 Sennosides/Docusate Sodium 8.6/50 Mg Tab FEEDTUBE 2 tab BID CONNIE Administration Simple Syrup 15 ml 01/12/22 12:35 Simple Syrup 15 Ml FEEDTUBE PRN PRN Hypoglycemia Simple Syrup 30 ml 01/12/22 12:35 Simple Syrup 15 Ml FEEDTUBE PRN PRN Hypoglycemia Sodium Bicarbonate 325 mg 01/12/22 12:35 Sodium Bicarbonate 325 Mg Tab FEEDTUBE PRN PRN For Clogged Feeding Tube Sodium Chloride 10 ml 01/12/22 10:00 01/16/22 22:52 Sodium Chloride 0.9% 10 Ml Flush Syringe IV 10 ml BID CONNIE Administration Sodium Chloride 10 ml 01/12/22 00:52 Sodium Chloride 0.9% 10 Ml Flush Syringe IV PRN PRN LINE FLUSH Tramadol HCl 50 mg 01/15/22 18:14 Tramadol 50 Mg Tab PO Q6H PRN Pain, Moderate (4-6) Zinc Sulfate 220 mg 01/15/22 22:00 01/17/22 09:10 Zinc Sulfate 220 Mg Cap PO 220 mg BID CONNIE Administration Nutrition/Malnutrition Assess - Dietary Evaluation Nutrition/Malnutrition Findings: Nutrition Notes Start: 01/12/22 12:03 Freq: Status: Active Protocol: Document 01/14/22 11:07 CARMEN (Rec: 01/14/22 11:29 CARMEN [id number]) Nutrition Notes Initial or Follow up Reassessment Current Diagnosis Coronary Artery Disease, Diabetes,Sepsis,Hypertension, Stroke,Hyperlipidemia Other Pertinent Diagnosis Seizure, UTI, Hypokalemia, Pneumonia, GERD, Dementia... Current Diet TF-Glucerna 1.2 Srabjit @ 50 ml/hr (from D 01/12). Labs/Tests 01/14: Cl 110.8, Crea 0.5, Glu 148. Pertinent Medications 01/14: Nutritionally unremarkable. Height 5 ft 4 in Weight 72.575 kg [place] Body Weight (kg) 54.54 BMI 27.4 Intake Prior to Admission Good Weight change and time frame No body weight change reported in 2 days. Pt states not having loss body weight [employer]. Weight Status Overweight Subjective/Other Information RD consult for routine F/U on TF tolerance/continuation assessment. TF continues as prescribed, and well tolerated, according to RN notes. Pt is on Room Air, O2 saturation @ 100%, according to Vital Signs note. Pt has missing teeth, according to Physical Assessment History notes. Pt presents an unspecified Dryness area of concern, according to Physical Assessment History notes. Percent of energy/protein needs met: Prescribed TF-Glucerna 1.2 Sarbjit @ 50 ml/hr provides for energy/protein needs (1,450 Kcal/73 g) during LOS, 95% Kcal; 100% AA. Burn Absent Trauma Absent GI Symptoms Other Food Allergy No Skin Integrity/Comment Unspecified Dryness area of concern Current % PO Other Minimum of two criteria No Fluid Accumulation N/A Reduced Insurance Verification Representative Strength N/A (non-severe) Protein-Calorie Malnutrition N\A #1 Nutrition Diagnosis Altered GI function Diagnosis Progress(for reassessment Continues documentation) Is patient on ventilator? No Is Patient Ambulatory and/or Out of Bed No REE-([facility]-confined to bed) 1400.088 Kcal/Kg value to use for calculation 21 Approximate Energy Requirements Using 1524 kcal/Kg Calculation Used for Recommendations Kcal/kg Additional Notes Protein: 1-1.2 g/Kg ABW; 73-88 g/day. Fluids: 1 ml/Kcal, or as per MD. Nutrition Intervention Nutrition Support: Continue TF-Glucerna 1.2 Sarbjit @ 50 ml/hr. Flush: 100 ml water Q 4 hr, or as per MD. Kcal 1,450 Protein (gm) 73 Carbohydrates (gm) 138 Fat (gm) 73 Fluid (mL) 973 Fiber (gm) 19 % RDI: 95% Kcal; 100% AA. Goal #1 Provide at least 75% of energy /protein needs through Enteral Feeding during LOS. Goal #2 Maintain body weight within +/ -3% of admission body weight during LOS. Follow-Up By: 01/21/22 Additional Comments Continue monitoring TF tolerance and BM.
[2022-01-17] MEDS: LACOSAMIDE 100 MG TAB PO SCH ×2 (10:04→22:41)
[2022-01-17] MEDS: allopurinoL 300 MG TAB PO SCH (10:05)
[2022-01-17] MEDS: amLODIPine 10 MG TAB PO SCH (10:05)
[2022-01-17] MEDS: LANSOPRAZOLE 30 MG SOLUTAB FEEDTUBE SCH (10:05)
[2022-01-17] MEDS: SODIUM CHLORIDE 0.9% 1000 ML 1,000 ML IV SCH ×2 (10:11→23:10)
[2022-01-17] MEDS: POLYETHYLENE GLYCOL 3350 17 GM POWDER PO SCH (10:11)
[2022-01-17] MEDS: LINAGLIPTIN 5 MG TAB PO SCH (10:18)
--- NOTE | 2022-01-17 10:30 | Progress Note ---
Assessment and Plan Patient with history of coronary artery disease we will continue empiric medical therapy including topical nitrates, beta-blockers and oral antiplatelet therapy. Otherwise conservative cardiac management. Defer to internal medicine and pulmonary for management of presenting multilobar pneumonia. Subjective Date of service: 01/17/22 Principal diagnosis: Bilateral pneumonia Interval history: Patient is breathing comfortably, no acute distress. No new cardiac events reported. Objective Vital Signs Temp Pulse Resp BP BP Pulse Ox 01/17/22 10:05 55 L 130/62 01/17/22 05:18 81 141/79 01/17/22 04:51 97.7 F 81 20 141/79 95 01/16/22 22:21 97.5 F L 78 20 155/88 99 01/16/22 22:00 80 99 01/16/22 21:45 89 176/80 01/16/22 16:44 97.3 F L 80 22 138/72 100 01/16/22 13:27 70 01/16/22 11:42 97.7 F 62 22 156/67 96 - Physical Examination General: No Apparent Distress, Cachectic, Other (Chronically ill-appearing, noncommunicative) HEENT: Positive: PERRL Neck: Positive: neck supple Cardiac: Positive: Reg Rate and Rhythm Lungs: Positive: Decreased Breath Sounds Neuro: Positive: Weakness (Generalized lethargy) Abdomen: Positive: Soft Skin: Positive: Clear Extremities: Absent: edema - Allied health notes Allied health notes reviewed: RT
--- NOTE | 2022-01-17 11:15 | Progress Note ---
Assessment and Plan Acute hypoxic respiratory failure: Secondary to pneumonia. Multifocal pneumonia Sepsis Dementia Elevated troponin Reactive thrombocytosis Elevated D-dimer Elevated troponin-possibly demand ischemia -Continue to titrate supplemental oxygen to keep SpO2 90-92% -Antibiotics - per ID to complete Levofloxacin today -Conservative fluid management as tolerated by blood pressure and renal function -VTE prophylaxis -Aspiration precautions, HOB >30 -Bronchodilators prn -Continue enteric nutritional support -ABG, CXR clinically indicated -Avoid delirium, maintain sleep-wake cycle. Patient has baseline dementia and is at risk for delirium -Mobility, off loading and frequent turning per hospital protocol to prevent pressure ulcers -Influenza and pneumonia vaccination per protocol -Chronic home medications as clinically indicated All other care -per Attending and other ux consultant physicians Discharge planning Subjective Date of service: 01/17/22 Principal diagnosis: Bilateral pneumonia Interval history: Follow up for: acute hypoxic resp failure; multifocal pneumonia; Sepsis Seen and examined. Vitals, labs, medications, chart and imaging reviewed. No acute overnight events reported. Discussed with nursing and respiratory staff. No fevers, she is on supplemental oxygen at 2L/min, slow speech No new respiratory issues Objective - Exam Narrative Exam: Constitutional: awake, doesn't follow commands Head, Ears, Nose: Normocephalic, atraumatic. External ears, nose normal Eyes: Conjunctivae/corneas clear. No icterus. No ptosis. Neck: Supple, no meningeal signs Oral: edentulous Cardiovascular: S1, S2 + Respiratory: clear b/l GI: Soft, non-tender; bowel sounds normal. No peritoneal signs Musculoskeletal: No pedal edema, no cyanosis. Foot drop Hem/Lymphatic: No palpable cervical or supraclavicular nodes. Psych: Calm, no agitation Neurological: awake Vital Signs - 12hr 01/17/22 01/17/22 01/17/22 04:51 05:18 10:05 Temperature 97.7 F Pulse Rate 81 81 55 L Respiratory 20 Rate Blood Pressure 141/79 130/62 Blood Pressure 141/79 [Right] O2 Sat by Pulse 95 Oximetry CBC and BMP: 01/15/22 04:13 01/15/22 04:13 ABG, PT/INR, D-dimer: PT/INR, D-dimer PT 14.3 Sec. (12.2-14.9) 01/11/22 21:41 INR 1.00 (0.87-1.13) 01/11/22 21:41 D-Dimer 792.24 ng/mlDDU (0-234) H 01/14/22 09:19 Abnormal lab findings: Abnormal Labs 01/11/22 01/11/22 01/11/22 21:41 21:41 21:41 WBC 15.2 H RBC Hgb Hct MCH RDW 20.6 H Plt Count 450 H Seg Neuts % (Manual) 91.0 H Lymphocytes % (Manual) 6.0 L Monocytes % (Manual) Eosinophils % (Manual) Nucleated RBC % Seg Neutrophils # Man 13.8 H Lymphocytes # (Manual) 0.9 L Monocytes # (Manual) Eosinophils # (Manual) D-Dimer 1128.67 H Potassium Chloride BUN 25 H Creatinine Glucose 207 H POC Glucose Lactic Acid Ferritin Lactate Dehydrogenase CK-MB (CK-2) Rel Index Troponin T C-Reactive Protein LDL Cholesterol Direct Urine WBC (Auto) 01/11/22 01/11/22 01/12/22 21:41 23:30 00:35 WBC RBC Hgb Hct MCH RDW Plt Count Seg Neuts % (Manual) Lymphocytes % (Manual) Monocytes % (Manual) Eosinophils % (Manual) Nucleated RBC % Seg Neutrophils # Man Lymphocytes # (Manual) Monocytes # (Manual) Eosinophils # (Manual) D-Dimer Potassium Chloride BUN Creatinine Glucose POC Glucose Lactic Acid 2.10 H* 2.20 H* Ferritin Lactate Dehydrogenase CK-MB (CK-2) Rel Index 9.0 H Troponin T 0.091 H C-Reactive Protein LDL Cholesterol Direct Urine WBC (Auto) 01/12/22 01/12/22 01/12/22 00:35 07:43 10:47 WBC RBC Hgb Hct MCH RDW Plt Count Seg Neuts % (Manual) Lymphocytes % (Manual) Monocytes % (Manual) Eosinophils % (Manual) Nucleated RBC % Seg Neutrophils # Man Lymphocytes # (Manual) Monocytes # (Manual) Eosinophils # (Manual) D-Dimer 1304.06 H Potassium Chloride BUN Creatinine Glucose POC Glucose 112 H Lactic Acid Ferritin Lactate Dehydrogenase CK-MB (CK-2) Rel Index Troponin T 0.105 H* C-Reactive Protein LDL Cholesterol Direct Urine WBC (Auto) 01/12/22 01/12/22 01/12/22 10:47 10:47 12:42 WBC RBC Hgb Hct MCH RDW Plt Count Seg Neuts % (Manual) Lymphocytes % (Manual) Monocytes % (Manual) Eosinophils % (Manual) Nucleated RBC % Seg Neutrophils # Man Lymphocytes # (Manual) Monocytes # (Manual) Eosinophils # (Manual) D-Dimer Potassium Chloride BUN Creatinine Glucose 121 H POC Glucose 116 H Lactic Acid Ferritin 630.6 H Lactate Dehydrogenase 206 H CK-MB (CK-2) Rel Index Troponin T C-Reactive Protein 12.60 H LDL Cholesterol Direct Urine WBC (Auto) 01/12/22 01/12/22 01/12/22 16:06 19:04 22:50 WBC RBC Hgb Hct MCH RDW Plt Count Seg Neuts % (Manual) Lymphocytes % (Manual) Monocytes % (Manual) Eosinophils % (Manual) Nucleated RBC % Seg Neutrophils # Man Lymphocytes # (Manual) Monocytes # (Manual) Eosinophils # (Manual) D-Dimer Potassium Chloride BUN Creatinine Glucose POC Glucose 111 H 108 H Lactic Acid Ferritin Lactate Dehydrogenase CK-MB (CK-2) Rel Index Troponin T 0.055 H D C-Reactive Protein LDL Cholesterol Direct 26 L Urine WBC (Auto) 01/13/22 01/13/22 01/13/22 05:47 06:48 06:48 WBC RBC Hgb 9.8 L Hct MCH 26 L RDW 20.6 H Plt Count Seg Neuts % (Manual) 77.0 H Lymphocytes % (Manual) 9.0 L Monocytes % (Manual) Eosinophils % (Manual) 7.0 H Nucleated RBC % 1.0 H Seg Neutrophils # Man Lymphocytes # (Manual) 0.7 L Monocytes # (Manual) Eosinophils # (Manual) 0.6 H D-Dimer Potassium 2.7 L* D Chloride BUN Creatinine 0.5 L Glucose 128 H POC Glucose 118 H Lactic Acid Ferritin Lactate Dehydrogenase CK-MB (CK-2) Rel Index Troponin T C-Reactive Protein LDL Cholesterol Direct Urine WBC (Auto) 01/13/22 01/13/22 01/13/22 08:13 12:33 16:09 WBC RBC Hgb Hct MCH RDW Plt Count Seg Neuts % (Manual) Lymphocytes % (Manual) Monocytes % (Manual) Eosinophils % (Manual) Nucleated RBC % Seg Neutrophils # Man Lymphocytes # (Manual) Monocytes # (Manual) Eosinophils # (Manual) D-Dimer Potassium Chloride BUN Creatinine Glucose POC Glucose 130 H 152 H 154 H Lactic Acid Ferritin Lactate Dehydrogenase CK-MB (CK-2) Rel Index Troponin T C-Reactive Protein LDL Cholesterol Direct Urine WBC (Auto) 01/13/22 01/14/22 01/14/22 21:53 07:03 07:59 WBC RBC Hgb Hct MCH RDW Plt Count Seg Neuts % (Manual) Lymphocytes % (Manual) Monocytes % (Manual) Eosinophils % (Manual) Nucleated RBC % Seg Neutrophils # Man Lymphocytes # (Manual) Monocytes # (Manual) Eosinophils # (Manual) D-Dimer Potassium Chloride BUN Creatinine Glucose POC Glucose 130 H 148 H Lactic Acid Ferritin Lactate Dehydrogenase CK-MB (CK-2) Rel Index Troponin T C-Reactive Protein LDL Cholesterol Direct Urine WBC (Auto) 41.0 H 01/14/22 01/14/22 01/14/22 09:19 09:19 11:48 WBC RBC Hgb Hct MCH RDW Plt Count Seg Neuts % (Manual) Lymphocytes % (Manual) Monocytes % (Manual) Eosinophils % (Manual) Nucleated RBC % Seg Neutrophils # Man Lymphocytes # (Manual) Monocytes # (Manual) Eosinophils # (Manual) D-Dimer 792.24 H Potassium Chloride 110.8 H BUN Creatinine 0.5 L Glucose 148 H POC Glucose 163 H Lactic Acid Ferritin Lactate Dehydrogenase CK-MB (CK-2) Rel Index Troponin T C-Reactive Protein LDL Cholesterol Direct Urine WBC (Auto) 01/14/22 01/14/22 01/15/22 16:06 21:51 04:13 WBC RBC 3.25 L Hgb 8.8 L Hct 27.2 L MCH 27 L RDW 21.6 H Plt Count Seg Neuts % (Manual) Lymphocytes % (Manual) Monocytes % (Manual) 19.0 H Eosinophils % (Manual) Nucleated RBC % Seg Neutrophils # Man Lymphocytes # (Manual) Monocytes # (Manual) 1.4 H Eosinophils # (Manual) D-Dimer Potassium Chloride BUN Creatinine Glucose POC Glucose 133 H 137 H Lactic Acid Ferritin Lactate Dehydrogenase CK-MB (CK-2) Rel Index Troponin T C-Reactive Protein LDL Cholesterol Direct Urine WBC (Auto) 01/15/22 01/15/22 01/15/22 04:13 05:42 11:34 WBC RBC Hgb Hct MCH RDW Plt Count Seg Neuts % (Manual) Lymphocytes % (Manual) Monocytes % (Manual) Eosinophils % (Manual) Nucleated RBC % Seg Neutrophils # Man Lymphocytes # (Manual) Monocytes # (Manual) Eosinophils # (Manual) D-Dimer Potassium 3.2 L Chloride BUN Creatinine 0.4 L Glucose 132 H POC Glucose 148 H 156 H Lactic Acid Ferritin Lactate Dehydrogenase CK-MB (CK-2) Rel Index Troponin T C-Reactive Protein LDL Cholesterol Direct Urine WBC (Auto) 01/15/22 01/15/22 01/16/22 16:54 23:54 05:15 WBC RBC Hgb Hct MCH RDW Plt Count Seg Neuts % (Manual) Lymphocytes % (Manual) Monocytes % (Manual) Eosinophils % (Manual) Nucleated RBC % Seg Neutrophils # Man Lymphocytes # (Manual) Monocytes # (Manual) Eosinophils # (Manual) D-Dimer Potassium Chloride BUN Creatinine Glucose POC Glucose 126 H 126 H 147 H Lactic Acid Ferritin Lactate Dehydrogenase CK-MB (CK-2) Rel Index Troponin T C-Reactive Protein LDL Cholesterol Direct Urine WBC (Auto) 01/16/22 01/16/22 01/16/22 11:39 16:42 22:44 WBC RBC Hgb Hct MCH RDW Plt Count Seg Neuts % (Manual) Lymphocytes % (Manual) Monocytes % (Manual) Eosinophils % (Manual) Nucleated RBC % Seg Neutrophils # Man Lymphocytes # (Manual) Monocytes # (Manual) Eosinophils # (Manual) D-Dimer Potassium Chloride BUN Creatinine Glucose POC Glucose 160 H 172 H 154 H Lactic Acid Ferritin Lactate Dehydrogenase CK-MB (CK-2) Rel Index Troponin T C-Reactive Protein LDL Cholesterol Direct Urine WBC (Auto) 01/16/22 01/17/22 23:48 06:12 WBC RBC Hgb Hct MCH RDW Plt Count Seg Neuts % (Manual) Lymphocytes % (Manual) Monocytes % (Manual) Eosinophils % (Manual) Nucleated RBC % Seg Neutrophils # Man Lymphocytes # (Manual) Monocytes # (Manual) Eosinophils # (Manual) D-Dimer Potassium Chloride BUN Creatinine Glucose POC Glucose 150 H 130 H Lactic Acid Ferritin Lactate Dehydrogenase CK-MB (CK-2) Rel Index Troponin T C-Reactive Protein LDL Cholesterol Direct Urine WBC (Auto) Chest x-ray: image reviewed (Persitent but improving infiltrates) Allied health notes reviewed: RT
--- NOTE | 2022-01-17 13:50 | Progress Note ---
Assessment and Plan Cultures: 01/12/2022 COVID-19 PCR: Negative A/P: 86-year-old female with seizure disorder, prior CVA, hypertension, dementia, intermediate resident admitted with worsening shortness of breath" #Sepsis, secondary to bilateral pneumonia: halfway resident. Possibility of aspiration also exists. UA not done. 01/12/2022 procalcitonin 9.4. No blood cultures done. #Recent COVID-19 pneumonia: Recently discharged on 01/11/2022, completed remdesivir and received 10-day course of Decadron. #Acute hypoxic respiratory failure: Secondary to pneumonia. Stable to improving. #Dementia #Elevated troponin #Reactive thrombocytosis: likely secondary to sepsis Recs: -Completed vancomycin -Would give Levaquin today then stop antibiotics. Daniel Otto MD [facility] O: [phone] F: [phone] Subjective Date of service: 01/17/22 Principal diagnosis: Bilateral pneumonia Interval history: Afebrile, normal white count. Imaging personally reviewed: Chest x-ray: No significant change Objective - Exam Narrative Exam: Physical Exam: Constitutional: awake, doesn't follow commands Head, Ears, Nose: Normocephalic, atraumatic. External ears, nose normal Eyes: Conjunctivae/corneas clear. No icterus. No ptosis. Neck: Supple, no meningeal signs Oral: edentulous Cardiovascular: S1, S2 + Respiratory: clear b/l GI: Soft, non-tender; bowel sounds normal. No peritoneal signs Musculoskeletal: No pedal edema, no cyanosis. Skin: No rash or abscess Hem/Lymphatic: No palpable cervical or supraclavicular nodes. Psych: Calm, no agitation Neurological: awake - Constitutional Vitals: Vital Signs Temp Pulse Resp BP Pulse Ox 97.7 F 55 L 15 130/62 94 01/17/22 04:51 01/17/22 10:05 01/17/22 10:00 01/17/22 10:05 01/17/22 13:23 Temperature -Last 24 Hours Temperature 97.7 F Temperature 97.5 F Temperature 97.3 F - Labs CBC & Chem 7: 01/15/22 04:13 01/15/22 04:13 Labs: Abnormal lab results 01/16/22 01/16/2222 Range/Units 16:42 22:44 23:48 POC Glucose 172 H 154 H 150 H (70-105) mg/dL 01/17/22 01/17/22 Range/Units 06:12 12:01 POC Glucose 130 H 132 H (70-105) mg/dL
[2022-01-17] MEDS: INSULIN GLARGINE 100 UNITS/ML SUB-Q SCH (22:43)
[2022-01-18] MEDS: INSULIN LISPRO 100 UNIT/ML SUB-Q SCH ×4 (00:16→18:08)
[2022-01-18] MEDS: HEPARIN 5,000 UNIT/1 ML VIAL SUB-Q SCH ×3 (05:45→21:33)
[2022-01-18] MEDS: METOPROLOL TARTRATE 25 MG TAB PO SCH ×3 (05:45→21:31)
--- NOTE | 2022-01-18 08:26 | Progress Note ---
Assessment and Plan Assessment and plan: 86-year-old female detention resident with PMH of seizure disorder, prior CVA, hypertension, dementia with admitted for dyspnea. Patient had a chest x- ray and CTA that revealed multifocal pneumonia. No PE. Patient was noted to have leukocytosis with WBC 15.2 and lactate of 2.2. Sepsis. Bilateral pneumonia. COVID PCR negative UTI. Hypokalemia Dementia. Elevated troponin. Reactive thrombocytosis. Sinus tachycardia CAD Hypertension Seizure disorder History CVA 01/13/2022. ID started empiric antibiotics of cefepime and vancomycin. We will follow-up blood cultures. Replete potassium and check magnesium. Follow-up BMP in a.m. 01/14/2022. Continue IV antibiotics per ID recommendations for total of 5 days. Continue to follow-up cultures. Continue empiric medical therapy with topical nitrates, beta-raheem and antiplatelet therapy. Cardiology following. Urinalysis did reveal UTI. 01/15/2022. Continue IV antibiotics per ID recommendations for total of 5 days. Continue to follow-up cultures. Continue empiric medical therapy with topical nitrates, beta-raheem and antiplatelet therapy. Cardiology following. Urinalysis did reveal UTI. 01/16/2022. Blood cultures with no growth x48 hours. Continue empiric medical therapy with topical nitrates, beta-raheem and antiplatelet therapy. Cardiology following. Urinalysis did reveal UTI. 01/17/2022. Blood cultures remain negative. Cefepime and vancomycin completed. We will start Levaquin 500 mg daily to complete 5 days per ID recommendations. 01/19/2020; COVID-19 test is negative, DC antibiotics DC planning per case management, possible arrowhead placement when stable History Interval history: I have seen and examined the patient at the bedside Patient's chart and medications reviewed Patient complains of generalized weakness Vital signs noted Hospitalist Physical - Constitutional Vitals: Temp Pulse Resp BP Pulse Ox 98.0 F 67 16 142/62 99 01/18/22 03:35 01/18/22 05:45 01/18/22 03:35 01/18/22 05:45 01/18/22 03:35 General appearance: Present: no acute distress, cachectic, other (Noncommunicative, frail, chronically ill-appearing, contracted) - EENT Eyes: Present: PERRL, EOM intact - Neck Neck: Present: supple, normal ROM - Respiratory Respiratory effort: normal Respiratory: bilateral: diminished, rhonchi, negative: rales, wheezing - Cardiovascular Rhythm: regular Heart Sounds: Present: S1 & S2 - Extremities Extremities: no ischemia, No edema - Abdominal General gastrointestinal: soft, non-tender, non-distended, normal bowel sounds - Integumentary Integumentary: Present: clear, warm - Psychiatric Psychiatric: appropriate mood/affect, cooperative - Neurologic Neurologic: moves all extremities HEART Score - HEART Score Troponin: Troponin T 0.055 ng/mL (0.00-0.029) H D 01/12/22 19:04 Results - Labs CBC & Chem 7: 01/18/22 11:08 01/18/22 11:08 Labs: Laboratory Last Values WBC 7.5 K/mm3 (4.5-11.0) 01/15/22 04:13 RBC 3.25 M/mm3 (3.65-5.03) L 01/15/22 04:13 Hgb 8.8 gm/dl (10.1-14.3) L 01/15/22 04:13 Hct 27.2 % (30.3-42.9) L 01/15/22 04:13 MCV 84 fl (79-97) 01/15/22 04:13 MCH 27 pg (28-32) L 01/15/22 04:13 MCHC 32 % (30-34) 01/15/22 04:13 RDW 21.6 % (13.2-15.2) H 01/15/22 04:13 Plt Count 428 K/mm3 (140-440) 01/15/22 04:13 Add Manual Diff Complete 01/15/22 04:13 Total Counted 100 01/15/22 04:13 Seg Neuts % (Manual) 60.0 % (40.0-70.0) 01/15/22 04:13 Band Neutrophils % 0 % 01/15/22 04:13 Lymphocytes % (Manual) 17.0 % (13.4-35.0) 01/15/22 04:13 Reactive Lymphs % (Man) 0 % 01/15/22 04:13 Monocytes % (Manual) 19.0 % (0.0-7.3) H 01/15/22 04:13 Eosinophils % (Manual) 3.0 % (0.0-4.3) 01/15/22 04:13 Basophils % (Manual) 0 % (0.0-1.8) 01/15/22 04:13 Metamyelocytes % 0 % 01/15/22 04:13 Myelocytes % 0 % 01/15/22 04:13 Promyelocytes % 1.0 % 01/15/22 04:13 Blast Cells % 0 % 01/15/22 04:13 Nucleated RBC % Not Reportable 01/15/22 04:13 Seg Neutrophils # Man 4.5 K/mm3 (1.8-7.7) 01/15/22 04:13 Band Neutrophils # 0.0 K/mm3 01/15/22 04:13 Lymphocytes # (Manual) 1.3 K/mm3 (1.2-5.4) 01/15/22 04:13 Abs React Lymphs (Man) 0.0 K/mm3 01/15/22 04:13 Monocytes # (Manual) 1.4 K/mm3 (0.0-0.8) H 01/15/22 04:13 Eosinophils # (Manual) 0.2 K/mm3 (0.0-0.4) 01/15/22 04:13 Basophils # (Manual) 0.0 K/mm3 (0.0-0.1) 01/15/22 04:13 Metamyelocytes # 0.0 K/mm3 01/15/22 04:13 Myelocytes # 0.0 K/mm3 01/15/22 04:13 Promyelocytes # 0.1 K/mm3 01/15/22 04:13 Blast Cells # 0.0 K/mm3 01/15/22 04:13 WBC Morphology Not Reportable 01/15/22 04:13 Hypersegmented Neuts Not Reportable 01/15/22 04:13 Hyposegmented Neuts Not Reportable 01/15/22 04:13 Hypogranular Neuts Not Reportable 01/15/22 04:13 Smudge Cells Not Reportable 01/15/22 04:13 Toxic Granulation Not Reportable 01/15/22 04:13 Toxic Vacuolation Not Reportable 01/15/22 04:13 Dohle Bodies Not Reportable 01/15/22 04:13 Pelger-Huet Anomaly Not Reportable 01/15/22 04:13 Marina Rods Not Reportable 01/15/22 04:13 Platelet Estimate Consistent w auto 01/15/22 04:13 Clumped Platelets Not Reportable 01/15/22 04:13 Plt Clumps, EDTA Not Reportable 01/15/22 04:13 Large Platelets Not Reportable 01/15/22 04:13 Giant Platelets Not Reportable 01/15/22 04:13 Platelet Satelliting Not Reportable 01/15/22 04:13 Plt Morphology Comment Not Reportable 01/15/22 04:13 RBC Morphology Not Reportable 01/15/22 04:13 Dimorphic RBCs Not Reportable 01/15/22 04:13 Polychromasia 1+ 01/15/22 04:13 Hypochromasia Not Reportable 01/15/22 04:13 Poikilocytosis Not Reportable 01/15/22 04:13 Anisocytosis 1+ 01/15/22 04:13 Microcytosis Not Reportable 01/15/22 04:13 Macrocytosis Not Reportable 01/15/22 04:13 Spherocytes Not Reportable 01/15/22 04:13 Pappenheimer Bodies Not Reportable 01/15/22 04:13 Sickle Cells Not Reportable 01/15/22 04:13 Target Cells Not Reportable 01/15/22 04:13 Tear Drop Cells Not Reportable 01/15/22 04:13 Ovalocytes Not Reportable 01/15/22 04:13 Stomatocytes Rare 01/13/22 06:48 Helmet Cells Not Reportable 01/15/22 04:13 [place] Bodies Not Reportable 01/15/22 04:13 [place] Rings Not Reportable 01/15/22 04:13 [place] Cells Not Reportable 01/15/22 04:13 Bite Cells Not Reportable 01/15/22 04:13 Crenated Cell Not Reportable 01/15/22 04:13 Elliptocytes Not Reportable 01/15/22 04:13 Acanthocytes (Spur) Not Reportable 01/15/22 04:13 Rouleaux Not Reportable 01/15/22 04:13 Hemoglobin C Crystals Not Reportable 01/15/22 04:13 Schistocytes Not Reportable 01/15/22 04:13 Malaria parasites Not Reportable 01/15/22 04:13 Kevin Bodies Not Reportable 01/15/22 04:13 Hem Pathologist Commnt No 01/15/22 04:13 PT 14.3 Sec. (12.2-14.9) 01/11/22 21:41 INR 1.00 (0.87-1.13) 01/11/22 21:41 APTT 24.7 Sec. (24.2-36.6) 01/11/22 21:41 D-Dimer 792.24 ng/mlDDU (0-234) H 01/14/22 09:19 Sodium 144 mmol/L (137-145) 01/15/22 04:13 Potassium 3.2 mmol/L (3.6-5.0) L 01/15/22 04:13 Chloride 106.7 mmol/L (98-107) 01/15/22 04:13 Carbon Dioxide 26 mmol/L (22-30) 01/15/22 04:13 Anion Gap 15 mmol/L 01/15/22 04:13 BUN 13 mg/dL (7-17) 01/15/22 04:13 Creatinine 0.4 mg/dL (0.6-1.2) L 01/15/22 04:13 Estimated GFR > 60 ml/min 01/15/22 04:13 BUN/Creatinine Ratio 33 % 01/15/22 04:13 Glucose 132 mg/dL (65-100) H 01/15/22 04:13 POC Glucose 116 mg/dL (70-105) H 01/18/22 05:46 Lactic Acid 2.20 mmol/L (0.7-2.0) H* 01/12/22 00:35 Calcium 9.2 mg/dL (8.4-10.2) 01/15/22 04:13 Magnesium 2.10 mg/dL (1.7-2.3) 01/13/22 01:30 Ferritin 630.6 ng/mL (10.0-200.0) H 01/12/22 10:47 Total Bilirubin 0.20 mg/dL (0.1-1.2) 01/11/22 21:41 AST 11 units/L (5-40) 01/11/22 21:41 ALT 13 units/L (7-56) 01/11/22 21:41 Alkaline Phosphatase 79 units/L (35-129) 01/11/22 21:41 Lactate Dehydrogenase 206 units/L (91-180) H 01/12/22 10:47 Total Creatine Kinase 30 units/L (30-135) 01/11/22 21:41 CK-MB (CK-2) 2.7 ng/mL (0.0-4.0) 01/11/22 21:41 CK-MB (CK-2) Rel Index 9.0 (0-4) H 01/11/22 21:41 Troponin T 0.055 ng/mL (0.00-0.029) H D 01/12/22 19:04 C-Reactive Protein 12.60 mg/dL (0.00-1.30) H 01/12/22 10:47 Total Protein 7.6 g/dL (6.3-8.2) 01/11/22 21:41 Albumin 4.0 g/dL (3.9-5) 01/11/22 21:41 Albumin/Globulin Ratio 1.1 % 01/11/22 21:41 Triglycerides 128 mg/dL (2-149) 01/12/22 19:04 Cholesterol 96 mg/dL (50-199) 01/12/22 19:04 LDL Cholesterol Direct 26 mg/dL (50-130) L 01/12/22 19:04 HDL Cholesterol 47 mg/dL (40-59) 01/12/22 19:04 Cholesterol/HDL Ratio 2.04 % 01/12/22 19:04 Procalcitonin 9.47 ng/mL (<0.15) 01/12/22 10:47 Urine Color Yellow (Yellow) 01/14/22 07:59 Urine Turbidity Clear (Clear) 01/14/22 07:59 Urine pH 6.5 (5.0-7.0) 01/14/22 07:59 Ur Specific [place] 1.015 (1.003-1.030) 01/14/22 07:59 Urine Protein 30 mg/dl mg/dL (Negative) 01/14/22 07:59 Urine Glucose (UA) Negative mg/dL (Negative) 01/14/22 07:59 Urine Ketones Negative mg/dL (Negative) 01/14/22 07:59 Urine Blood Negative (Negative) 01/14/22 07:59 Urine Nitrite Negative (Negative) 01/14/22 07:59 Urine Bilirubin Negative (Negative) 01/14/22 07:59 Urine Urobilinogen < 2.0 mg/dL (<2.0) 01/14/22 07:59 Ur Leukocyte Esterase Moderate (Negative) 01/14/22 07:59 Urine WBC (Auto) 41.0 /HPF (0.0-6.0) H 01/14/22 07:59 Urine RBC (Auto) 22.0 /HPF (0.0-6.0) 01/14/22 07:59 U Epithel Cells (Auto) 1.0 /HPF (0-13.0) 01/14/22 07:59 Urine Mucus Few /HPF 01/14/22 07:59 Nasal Screen MRSA (PCR) Positive (Negative) 01/13/22 09:04 SARS-CoV-2 (PCR) Negative (Negative) 01/12/22 09:11 Microbiology: Microbiology 01/14/22 12:17 Peripheral/Venous Blood Culture - Preliminary NO GROWTH AFTER 72 HOURS 01/14/22 11:16 Peripheral/Venous Blood Culture - Preliminary NO GROWTH AFTER 72 HOURS Rosales/IV: Voiding Method External Female Catheter Active Medications - Current Medications Current Medications: Generic Name Dose Route Start Last Admin Trade Name Freq PRN Reason Stop Dose Admin Acetaminophen 650 mg 01/12/22 00:52 Acetaminophen 325 Mg Tab PO Q4H PRN Pain MILD(1-3)/Fever >100.5/FERRARI Allopurinol 300 mg 01/16/22 10:00 01/17/22 10:05 Allopurinol 300 Mg Tab PO 300 mg QDAY CONNIE Administration Amlodipine Besylate 10 mg 01/16/22 10:00 01/17/22 10:05 Amlodipine 10 Mg Tab PO 10 mg DAILY CONNIE Administration Lipase/Protease/Amylase 1 each 01/12/22 12:35 Lipase 10,500/Protease 25,000/Amylase 43,750 (Units) Dr Collier FEEDTUBE PRN PRN For Clogged Feeding Tube Ascorbic Acid 500 mg 01/15/22 22:00 01/17/22 22:42 Ascorbic Acid 500 Mg Tab PO 500 mg BID CONNIE Administration Aspirin 81 mg 01/16/22 10:00 01/17/22 09:09 Aspirin Ec 81 Mg Tab PO 81 mg DAILY CONNIE Administration Atorvastatin Calcium 20 mg 01/15/22 22:00 01/17/22 22:42 Atorvastatin 20 Mg Tab PO 20 mg QHS CONNIE Administration Cholecalciferol 1,000 unit 01/16/22 10:00 01/17/22 09:09 Cholecalciferol (Vit D3) 1000 Unit (25 Mcg) Tab PO 1,000 unit QDAY CONNIE Administration Dexamethasone 6 mg 01/16/22 10:00 01/17/22 09:10 Dexamethasone 2 Mg Tab PO 01/20/22 10:01 6 mg QDAY CONNIE Administration Dextrose 50 ml 01/12/22 00:52 Dextrose 50% In Water (25gm) 50 Ml Syringe IV Q30MIN PRN Hypoglycemia Protocol Ferrous Sulfate 325 mg 01/16/22 10:00 01/17/22 09:09 Ferrous Sulfate 325 Mg Tab PO 325 mg DAILY CONNIE Administration Heparin Sodium (Porcine) 5,000 unit 01/12/22 06:00 01/18/22 05:45 Heparin 5,000 Unit/1 Ml Vial SUB-Q 5,000 unit Q8HR CONNIE Administration Sodium Chloride 1,000 mls @ 75 mls/hr 01/14/22 10:00 01/17/22 23:10 Nacl 0.9% 1000 Ml IV 75 mls/hr DIRECT CONNIE Administration Levofloxacin/Dextrose 500 mg in 100 mls @ 100 mls/hr 01/17/22 10:00 01/17/22 12:24 Levaquin 500mg/100ml IV 01/21/22 10:59 Infused Q24HR CONNIE Infusion Protocol Insulin Glargine 10 units 01/15/22 22:00 01/17/22 22:43 Insulin Glargine 100 Units/Ml SUB-Q 10 units QHS CONNIE Administration Insulin Human Lispro 0 unit 01/13/22 12:00 01/18/22 06:01 Insulin Lispro 100 Unit/Ml SUB-Q Not Given Q6HR [facility] Protocol Lacosamide 100 mg 01/15/22 22:00 01/17/22 22:41 Lacosamide 100 Mg Tab PO 100 mg Q12HR CONNIE Administration Lansoprazole 30 mg 01/16/22 10:00 01/17/22 10:05 Lansoprazole 30 Mg Solutab FEEDTUBE 30 mg QDAY CONNIE Administration Levetiracetam 1,000 mg 01/15/22 22:00 01/17/22 22:41 Levetiracetam 500 Mg/5 Ml Oral Liqd FEEDTUBE 1,000 mg BID CONNIE Administration Linagliptin 5 mg 01/16/22 08:00 01/17/22 10:18 Linagliptin 5 Mg Tab PO 5 mg QAMDIAB CONNIE Administration Magnesium Hydroxide 30 ml 01/12/22 00:52 Magnesium Hydroxide (Mom) Oral Liqd Udc PO Q4H PRN Constipation Metoprolol Tartrate 25 mg 01/15/22 22:00 01/18/22 05:45 Metoprolol Tartrate 25 Mg Tab PO 25 mg Q8HR CONNIE Administration Morphine Sulfate 2 mg 01/12/22 00:52 Morphine 2 Mg/1 Ml Inj IV Q4H PRN Pain, Moderate (4-6) Morphine Sulfate 4 mg 01/12/22 00:52 Morphine 4 Mg/1 Ml Inj IV Q4H PRN Pain , Severe (7-10) Ondansetron HCl 4 mg 01/12/22 00:52 Ondansetron 4 Mg/2 Ml Inj IV Q8H PRN Nausea And Vomiting Polyethylene Glycol 17 gm 01/16/22 10:00 01/17/22 10:11 Polyethylene Glycol 3350 17 Gm Powder PO 17 gm QDAY CONNIE Administration Senna/Docusate Sodium 2 tab 01/15/22 22:00 01/17/22 22:41 Sennosides/Docusate Sodium 8.6/50 Mg Tab FEEDTUBE 2 tab BID CONNIE Administration Simple Syrup 15 ml 01/12/22 12:35 Simple Syrup 15 Ml FEEDTUBE PRN PRN Hypoglycemia Simple Syrup 30 ml 01/12/22 12:35 Simple Syrup 15 Ml FEEDTUBE PRN PRN Hypoglycemia Sodium Bicarbonate 325 mg 01/12/22 12:35 Sodium Bicarbonate 325 Mg Tab FEEDTUBE PRN PRN For Clogged Feeding Tube Sodium Chloride 10 ml 01/12/22 10:00 01/17/22 22:42 Sodium Chloride 0.9% 10 Ml Flush Syringe IV 10 ml BID CONNIE Administration Sodium Chloride 10 ml 01/12/22 00:52 Sodium Chloride 0.9% 10 Ml Flush Syringe IV PRN PRN LINE FLUSH Tramadol HCl 50 mg 01/15/22 18:14 Tramadol 50 Mg Tab PO Q6H PRN Pain, Moderate (4-6) Zinc Sulfate 220 mg 01/15/22 22:00 01/17/22 22:41 Zinc Sulfate 220 Mg Cap PO 220 mg BID CONNIE Administration Nutrition/Malnutrition Assess - Dietary Evaluation Nutrition/Malnutrition Findings: Nutrition Notes Start: 01/12/22 12:03 Freq: Status: Active Protocol: Document 01/14/22 11:07 CARMEN (Rec: 01/14/22 11:29 CARMEN [id number]) Nutrition Notes Initial or Follow up Reassessment Current Diagnosis Coronary Artery Disease, Diabetes,Sepsis,Hypertension, Stroke,Hyperlipidemia Other Pertinent Diagnosis Seizure, UTI, Hypokalemia, Pneumonia, GERD, Dementia... Current Diet TF-Glucerna 1.2 Sarbjit @ 50 ml/hr (from D 01/12). Labs/Tests 01/14: Cl 110.8, Crea 0.5, Glu 148. Pertinent Medications 01/14: Nutritionally unremarkable. Height 5 ft 4 in Weight 72.575 kg [place] Body Weight (kg) 54.54 BMI 27.4 Intake Prior to Admission Good Weight change and time frame No body weight change reported in 2 days. Pt states not having loss body weight [employer]. Weight Status Overweight Subjective/Other Information RD consult for routine F/U on TF tolerance/continuation assessment. TF continues as prescribed, and well tolerated, according to RN notes. Pt is on Room Air, O2 saturation @ 100%, according to Vital Signs note. Pt has missing teeth, according to Physical Assessment History notes. Pt presents an unspecified Dryness area of concern, according to Physical Assessment History notes. Percent of energy/protein needs met: Prescribed TF-Glucerna 1.2 Sarbjit @ 50 ml/hr provides for energy/protein needs (1,450 Kcal/73 g) during LOS, 95% Kcal; 100% AA. Burn Absent Trauma Absent GI Symptoms Other Food Allergy No Skin Integrity/Comment Unspecified Dryness area of concern Current % PO Other Minimum of two criteria No Fluid Accumulation N/A Reduced J2Ee Developer Strength N/A (non-severe) Protein-Calorie Malnutrition N\A #1 Nutrition Diagnosis Altered GI function Diagnosis Progress(for reassessment Continues documentation) Is patient on ventilator? No Is Patient Ambulatory and/or Out of Bed No REE-([facility]-confined to bed) 1400.088 Kcal/Kg value to use for calculation 21 Approximate Energy Requirements Using 1524 kcal/Kg Calculation Used for Recommendations Kcal/kg Additional Notes Protein: 1-1.2 g/Kg ABW; 73-88 g/day. Fluids: 1 ml/Kcal, or as per MD. Nutrition Intervention Nutrition Support: Continue TF-Glucerna 1.2 Sarbjit @ 50 ml/hr. Flush: 100 ml water Q 4 hr, or as per MD. Kcal 1,450 Protein (gm) 73 Carbohydrates (gm) 138 Fat (gm) 73 Fluid (mL) 973 Fiber (gm) 19 % RDI: 95% Kcal; 100% AA. Goal #1 Provide at least 75% of energy /protein needs through Enteral Feeding during LOS. Goal #2 Maintain body weight within +/ -3% of admission body weight during LOS. Follow-Up By: 01/21/22 Additional Comments Continue monitoring TF tolerance and BM.
[2022-01-18] MEDS: DEXAMETHASONE 2 MG TAB PO SCH (11:08)
[2022-01-18] MEDS: levETIRAcetam 500 MG/5 ML ORAL LIQD FEEDTUBE SCH ×2 (11:08→21:29)
[2022-01-18] MEDS: allopurinoL 300 MG TAB PO SCH (11:08)
[2022-01-18] MEDS: LANSOPRAZOLE 30 MG SOLUTAB FEEDTUBE SCH (11:08)
[2022-01-18] MEDS: SENNOSIDES/DOCUSATE SODIUM 8.6/50 MG TAB FEEDTUBE SCH ×2 (11:08→21:30)
[2022-01-18] MEDS: ASCORBIC ACID 500 MG TAB PO SCH ×2 (11:09→21:30)
[2022-01-18] MEDS: POLYETHYLENE GLYCOL 3350 17 GM POWDER PO SCH (11:09)
[2022-01-18] MEDS: LACOSAMIDE 100 MG TAB PO SCH ×2 (11:09→21:30)
[2022-01-18] MEDS: amLODIPine 10 MG TAB PO SCH (11:09)
[2022-01-18] MEDS: FERROUS SULFATE 325 MG TAB PO SCH (11:09)
[2022-01-18] MEDS: ASPIRIN EC 81 MG TAB PO SCH (11:09)
[2022-01-18] MEDS: ZINC SULFATE 220 MG CAP PO SCH ×2 (11:09→21:31)
[2022-01-18] MEDS: CHOLECALCIFEROL (VIT D3) 1000 UNIT (25 mcg) TAB PO SCH (11:10)
[2022-01-18] MEDS: LINAGLIPTIN 5 MG TAB PO SCH (11:10)
[2022-01-18 11:21] LABS: Hematocrit 25.6 % (30.3-42.9); Hemoglobin 7.9 gm/dl (10.1-14.3); Mean Corpuscular HGB Conc 31 % (30-34); Mean Corpuscular Volume 85 fl (79-97); Platelet Count 370 K/mm3 (140-440); Red Blood Count 3.02 M/mm3 (3.65-5.03)
[2022-01-18 11:43] LABS: Blood Urea Nitrogen 15 mg/dL (7-17); Calcium 9.1 mg/dL (8.4-10.2); Hemolysis Index 4
[2022-01-18 11:44] LABS: BUN/Creatinine Ratio 30
[2022-01-18 11:54] LABS: Red Cell Distribution Width 21.8 % (13.2-15.2)
--- NOTE | 2022-01-18 12:14 | Progress Note ---
Assessment and Plan Patient with history of coronary artery disease we will continue empiric medical therapy including topical nitrates, beta-blockers and oral antiplatelet therapy. Otherwise conservative cardiac management. Defer to internal medicine and pulmonary for management of presenting multilobar pneumonia. Subjective Date of service: 01/18/22 Principal diagnosis: Bilateral pneumonia Interval history: Patient is comfortable, no acute distress, no new cardiac complaints. No new cardiac events reported. Objective Vital Signs Temp Pulse Resp Resp BP BP Pulse Ox 01/18/22 11:09 120/78 01/18/22 11:06 128/76 01/18/22 10:51 98.2 F 80 16 100 01/18/22 10:09 98 01/18/22 05:45 67 142/62 01/18/22 03:35 98.0 F 67 16 142/62 99 01/17/22 22:41 86 132/64 01/17/22 22:10 100 01/17/22 22:00 17 17 100 01/17/22 21:07 98.4 F 86 16 132/64 100 01/17/22 17:47 99.6 F 102 H 18 161/72 99 01/17/22 13:58 59 L 126/93 01/17/22 13:23 94 - Physical Examination General: No Apparent Distress, Cachectic, Other (Chronically ill-appearing, noncommunicative) HEENT: Positive: PERRL Neck: Positive: neck supple Cardiac: Positive: Reg Rate and Rhythm Lungs: Positive: Decreased Breath Sounds Neuro: Positive: Weakness (Generalized lethargy) Abdomen: Positive: Soft Skin: Positive: Clear Extremities: Absent: edema - Labs and Meds CBC 01/18/22 Range/Units 11:08 WBC 11.3 H (4.5-11.0) K/mm3 RBC 3.02 L (3.65-5.03) M/mm3 Hgb 7.9 L (10.1-14.3) gm/dl Hct 25.6 L (30.3-42.9) % Plt Count 370 (140-440) K/mm3 Comprehensive Metabolic Panel 01/18/22 Range/Units 11:08 Sodium 142 (137-145) mmol/L Potassium 3.3 L (3.6-5.0) mmol/L Chloride 104.3 (98-107) mmol/L Carbon Dioxide 27 (22-30) mmol/L BUN 15 (7-17) mg/dL Creatinine 0.5 L (0.6-1.2) mg/dL Glucose 120 H (65-100) mg/dL Calcium 9.1 (8.4-10.2) mg/dL - Allied health notes Allied health notes reviewed: RT
--- NOTE | 2022-01-18 15:47 | Progress Note ---
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 Possibility of aspiration also exists. UA not done. 01/12/2022 procalcitonin 9.4. No blood cultures done. #Recent COVID-19 pneumonia: Recently discharged on 01/11/2022, completed remdesivir and received 10-day course of Decadron. #Acute hypoxic respiratory failure: Secondary to pneumonia. Stable to improving. #Dementia #Elevated troponin #Reactive thrombocytosis: likely secondary to sepsis Recs: -Stopped antibiotics. Daniel Otto MD [facility] ([facility]) O: [phone] F: [phone] Subjective Date of service: 01/18/22 Principal diagnosis: Bilateral pneumonia Interval history: Afebrile, white count slightly increased today. On 2 L nasal cannula. Objective - Exam Narrative Exam: Physical Exam: Constitutional: awake, doesn't follow commands Head, Ears, Nose: Normocephalic, atraumatic. External ears, nose normal Eyes: Conjunctivae/corneas clear. No icterus. No ptosis. Neck: Supple, no meningeal signs Oral: edentulous Cardiovascular: S1, S2 + Respiratory: clear b/l GI: Soft, non-tender; bowel sounds normal. No peritoneal signs Musculoskeletal: No pedal edema, no cyanosis. Skin: No rash or abscess Hem/Lymphatic: No palpable cervical or supraclavicular nodes. Psych: Calm, no agitation Neurological: awake - Constitutional Vitals: Vital Signs Temp Pulse Resp BP Pulse Ox 98.2 F 80 16 120/78 100 01/18/22 10:51 01/18/22 10:51 01/18/22 10:51 01/18/22 11:09 01/18/22 10:51 Temperature -Last 24 Hours Temperature 98.2 F Temperature 98.0 F Temperature 98.4 F Temperature 99.6 F - Labs CBC & Chem 7: 01/18/22 11:08 01/18/22 11:08 Labs: Abnormal lab results 01/17/22 01/17/22 01/18/22 Range/Units 17:43 23:47 05:46 WBC (4.5-11.0) K/mm3 RBC (3.65-5.03) M/mm3 Hgb (10.1-14.3) gm/dl Hct (30.3-42.9) % MCH (28-32) pg RDW (13.2-15.2) % Potassium (3.6-5.0) mmol/L Creatinine (0.6-1.2) mg/dL Glucose (65-100) mg/dL POC Glucose 187 H 154 H 116 H (70-105) mg/dL 01/18/22 01/18/22 01/18/22 Range/Units 11:08 11:08 11:42 WBC 11.3 H (4.5-11.0) K/mm3 RBC 3.02 L (3.65-5.03) M/mm3 Hgb 7.9 L (10.1-14.3) gm/dl Hct 25.6 L (30.3-42.9) % MCH 26 L (28-32) pg RDW 21.8 H (13.2-15.2) % Potassium 3.3 L (3.6-5.0) mmol/L Creatinine 0.5 L (0.6-1.2) mg/dL Glucose 120 H (65-100) mg/dL POC Glucose 128 H (70-105) mg/dL
--- NOTE | 2022-01-18 16:36 | Progress Note ---
Assessment and Plan Acute hypoxic respiratory failure: Secondary to pneumonia. Multifocal pneumonia Sepsis Dementia Elevated troponin Reactive thrombocytosis Elevated D-dimer Elevated troponin-possibly demand ischemia -Continue to titrate supplemental oxygen to keep SpO2 90-92% -Conservative fluid management as tolerated by blood pressure and renal function -VTE prophylaxis -Aspiration precautions, HOB >30 -Bronchodilators prn -Continue enteric nutritional support -ABG, CXR clinically indicated -Avoid delirium, maintain sleep-wake cycle. Patient has baseline dementia and is at risk for delirium -Mobility, off loading and frequent turning per hospital protocol to prevent pressure ulcers -Influenza and pneumonia vaccination per protocol -Chronic home medications as clinically indicated All other care -per Attending and other document management consultant physicians Discharge planning Subjective Date of service: 01/18/22 Principal diagnosis: Bilateral pneumonia Interval history: Follow up for: acute hypoxic resp failure; multifocal pneumonia; Sepsis Seen and examined. Vitals, labs, medications, chart and imaging reviewed. No acute overnight events reported. Discussed with nursing and respiratory staff. No fevers, she is on supplemental oxygen at 2L/min No new respiratory issues Objective Vital Signs - 12hr 01/18/22 01/18/22 01/18/22 05:45 10:09 10:51 Temperature 98.2 F Pulse Rate 67 80 Respiratory 16 Rate Blood Pressure 142/62 Blood Pressure [Right] O2 Sat by Pulse 98 100 Oximetry 01/18/22 01/18/22 11:06 11:09 Temperature Pulse Rate Respiratory Rate Blood Pressure 120/78 Blood Pressure 128/76 [Right] O2 Sat by Pulse Oximetry CBC and BMP: 01/18/22 11:08 01/18/22 11:08 ABG, PT/INR, D-dimer: PT/INR, D-dimer PT 14.3 Sec. (12.2-14.9) 01/11/22 21:41 INR 1.00 (0.87-1.13) 01/11/22 21:41 D-Dimer 792.24 ng/mlDDU (0-234) H 01/14/22 09:19 Abnormal lab findings: Abnormal Labs 01/11/22 01/11/22 01/11/22 21:41 21:41 21:41 WBC 15.2 H RBC Hgb Hct MCH RDW 20.6 H Plt Count 450 H Seg Neuts % (Manual) 91.0 H Lymphocytes % (Manual) 6.0 L Monocytes % (Manual) Eosinophils % (Manual) Nucleated RBC % Seg Neutrophils # Man 13.8 H Lymphocytes # (Manual) 0.9 L Monocytes # (Manual) Eosinophils # (Manual) D-Dimer 1128.67 H Potassium Chloride BUN 25 H Creatinine Glucose 207 H POC Glucose Lactic Acid Ferritin Lactate Dehydrogenase CK-MB (CK-2) Rel Index Troponin T C-Reactive Protein LDL Cholesterol Direct Urine WBC (Auto) 01/11/22 01/11/22 01/12/22 21:41 23:30 00:35 WBC RBC Hgb Hct MCH RDW Plt Count Seg Neuts % (Manual) Lymphocytes % (Manual) Monocytes % (Manual) Eosinophils % (Manual) Nucleated RBC % Seg Neutrophils # Man Lymphocytes # (Manual) Monocytes # (Manual) Eosinophils # (Manual) D-Dimer Potassium Chloride BUN Creatinine Glucose POC Glucose Lactic Acid 2.10 H* 2.20 H* Ferritin Lactate Dehydrogenase CK-MB (CK-2) Rel Index 9.0 H Troponin T 0.091 H C-Reactive Protein LDL Cholesterol Direct Urine WBC (Auto) 01/12/22 01/12/22 01/12/22 00:35 07:43 10:47 WBC RBC Hgb Hct MCH RDW Plt Count Seg Neuts % (Manual) Lymphocytes % (Manual) Monocytes % (Manual) Eosinophils % (Manual) Nucleated RBC % Seg Neutrophils # Man Lymphocytes # (Manual) Monocytes # (Manual) Eosinophils # (Manual) D-Dimer 1304.06 H Potassium Chloride BUN Creatinine Glucose POC Glucose 112 H Lactic Acid Ferritin Lactate Dehydrogenase CK-MB (CK-2) Rel Index Troponin T 0.105 H* C-Reactive Protein LDL Cholesterol Direct Urine WBC (Auto) 01/12/22 01/12/22 01/12/22 10:47 10:47 12:42 WBC RBC Hgb Hct MCH RDW Plt Count Seg Neuts % (Manual) Lymphocytes % (Manual) Monocytes % (Manual) Eosinophils % (Manual) Nucleated RBC % Seg Neutrophils # Man Lymphocytes # (Manual) Monocytes # (Manual) Eosinophils # (Manual) D-Dimer Potassium Chloride BUN Creatinine Glucose 121 H POC Glucose 116 H Lactic Acid Ferritin 630.6 H Lactate Dehydrogenase 206 H CK-MB (CK-2) Rel Index Troponin T C-Reactive Protein 12.60 H LDL Cholesterol Direct Urine WBC (Auto) 01/12/22 01/12/22 01/12/22 16:06 19:04 22:50 WBC RBC Hgb Hct MCH RDW Plt Count Seg Neuts % (Manual) Lymphocytes % (Manual) Monocytes % (Manual) Eosinophils % (Manual) Nucleated RBC % Seg Neutrophils # Man Lymphocytes # (Manual) Monocytes # (Manual) Eosinophils # (Manual) D-Dimer Potassium Chloride BUN Creatinine Glucose POC Glucose 111 H 108 H Lactic Acid Ferritin Lactate Dehydrogenase CK-MB (CK-2) Rel Index Troponin T 0.055 H D C-Reactive Protein LDL Cholesterol Direct 26 L Urine WBC (Auto) 01/13/22 01/13/22 01/13/22 05:47 06:48 06:48 WBC RBC Hgb 9.8 L Hct MCH 26 L RDW 20.6 H Plt Count Seg Neuts % (Manual) 77.0 H Lymphocytes % (Manual) 9.0 L Monocytes % (Manual) Eosinophils % (Manual) 7.0 H Nucleated RBC % 1.0 H Seg Neutrophils # Man Lymphocytes # (Manual) 0.7 L Monocytes # (Manual) Eosinophils # (Manual) 0.6 H D-Dimer Potassium 2.7 L* D Chloride BUN Creatinine 0.5 L Glucose 128 H POC Glucose 118 H Lactic Acid Ferritin Lactate Dehydrogenase CK-MB (CK-2) Rel Index Troponin T C-Reactive Protein LDL Cholesterol Direct Urine WBC (Auto) 01/13/22 01/13/22 01/13/22 08:13 12:33 16:09 WBC RBC Hgb Hct MCH RDW Plt Count Seg Neuts % (Manual) Lymphocytes % (Manual) Monocytes % (Manual) Eosinophils % (Manual) Nucleated RBC % Seg Neutrophils # Man Lymphocytes # (Manual) Monocytes # (Manual) Eosinophils # (Manual) D-Dimer Potassium Chloride BUN Creatinine Glucose POC Glucose 130 H 152 H 154 H Lactic Acid Ferritin Lactate Dehydrogenase CK-MB (CK-2) Rel Index Troponin T C-Reactive Protein LDL Cholesterol Direct Urine WBC (Auto) 01/13/22 01/14/22 01/14/22 21:53 07:03 07:59 WBC RBC Hgb Hct MCH RDW Plt Count Seg Neuts % (Manual) Lymphocytes % (Manual) Monocytes % (Manual) Eosinophils % (Manual) Nucleated RBC % Seg Neutrophils # Man Lymphocytes # (Manual) Monocytes # (Manual) Eosinophils # (Manual) D-Dimer Potassium Chloride BUN Creatinine Glucose POC Glucose 130 H 148 H Lactic Acid Ferritin Lactate Dehydrogenase CK-MB (CK-2) Rel Index Troponin T C-Reactive Protein LDL Cholesterol Direct Urine WBC (Auto) 41.0 H 01/14/22 01/14/22 01/14/22 09:19 09:19 11:48 WBC RBC Hgb Hct MCH RDW Plt Count Seg Neuts % (Manual) Lymphocytes % (Manual) Monocytes % (Manual) Eosinophils % (Manual) Nucleated RBC % Seg Neutrophils # Man Lymphocytes # (Manual) Monocytes # (Manual) Eosinophils # (Manual) D-Dimer 792.24 H Potassium Chloride 110.8 H BUN Creatinine 0.5 L Glucose 148 H POC Glucose 163 H Lactic Acid Ferritin Lactate Dehydrogenase CK-MB (CK-2) Rel Index Troponin T C-Reactive Protein LDL Cholesterol Direct Urine WBC (Auto) 01/14/22 01/14/22 01/15/22 16:06 21:51 04:13 WBC RBC 3.25 L Hgb 8.8 L Hct 27.2 L MCH 27 L RDW 21.6 H Plt Count Seg Neuts % (Manual) Lymphocytes % (Manual) Monocytes % (Manual) 19.0 H Eosinophils % (Manual) Nucleated RBC % Seg Neutrophils # Man Lymphocytes # (Manual) Monocytes # (Manual) 1.4 H Eosinophils # (Manual) D-Dimer Potassium Chloride BUN Creatinine Glucose POC Glucose 133 H 137 H Lactic Acid Ferritin Lactate Dehydrogenase CK-MB (CK-2) Rel Index Troponin T C-Reactive Protein LDL Cholesterol Direct Urine WBC (Auto) 01/15/22 01/15/22 01/15/22 04:13 05:42 11:34 WBC RBC Hgb Hct MCH RDW Plt Count Seg Neuts % (Manual) Lymphocytes % (Manual) Monocytes % (Manual) Eosinophils % (Manual) Nucleated RBC % Seg Neutrophils # Man Lymphocytes # (Manual) Monocytes # (Manual) Eosinophils # (Manual) D-Dimer Potassium 3.2 L Chloride BUN Creatinine 0.4 L Glucose 132 H POC Glucose 148 H 156 H Lactic Acid Ferritin Lactate Dehydrogenase CK-MB (CK-2) Rel Index Troponin T C-Reactive Protein LDL Cholesterol Direct Urine WBC (Auto) 01/15/22 01/15/22 01/16/22 16:54 23:54 05:15 WBC RBC Hgb Hct MCH RDW Plt Count Seg Neuts % (Manual) Lymphocytes % (Manual) Monocytes % (Manual) Eosinophils % (Manual) Nucleated RBC % Seg Neutrophils # Man Lymphocytes # (Manual) Monocytes # (Manual) Eosinophils # (Manual) D-Dimer Potassium Chloride BUN Creatinine Glucose POC Glucose 126 H 126 H 147 H Lactic Acid Ferritin Lactate Dehydrogenase CK-MB (CK-2) Rel Index Troponin T C-Reactive Protein LDL Cholesterol Direct Urine WBC (Auto) 01/16/22 01/16/22 01/16/22 11:39 16:42 22:44 WBC RBC Hgb Hct MCH RDW Plt Count Seg Neuts % (Manual) Lymphocytes % (Manual) Monocytes % (Manual) Eosinophils % (Manual) Nucleated RBC % Seg Neutrophils # Man Lymphocytes # (Manual) Monocytes # (Manual) Eosinophils # (Manual) D-Dimer Potassium Chloride BUN Creatinine Glucose POC Glucose 160 H 172 H 154 H Lactic Acid Ferritin Lactate Dehydrogenase CK-MB (CK-2) Rel Index Troponin T C-Reactive Protein LDL Cholesterol Direct Urine WBC (Auto) 01/16/22 01/17/22 01/17/22 23:48 06:12 12:01 WBC RBC Hgb Hct MCH RDW Plt Count Seg Neuts % (Manual) Lymphocytes % (Manual) Monocytes % (Manual) Eosinophils % (Manual) Nucleated RBC % Seg Neutrophils # Man Lymphocytes # (Manual) Monocytes # (Manual) Eosinophils # (Manual) D-Dimer Potassium Chloride BUN Creatinine Glucose POC Glucose 150 H 130 H 132 H Lactic Acid Ferritin Lactate Dehydrogenase CK-MB (CK-2) Rel Index Troponin T C-Reactive Protein LDL Cholesterol Direct Urine WBC (Auto) 01/17/22 01/17/22 01/18/22 17:43 23:47 05:46 WBC RBC Hgb Hct MCH RDW Plt Count Seg Neuts % (Manual) Lymphocytes % (Manual) Monocytes % (Manual) Eosinophils % (Manual) Nucleated RBC % Seg Neutrophils # Man Lymphocytes # (Manual) Monocytes # (Manual) Eosinophils # (Manual) D-Dimer Potassium Chloride BUN Creatinine Glucose POC Glucose 187 H 154 H 116 H Lactic Acid Ferritin Lactate Dehydrogenase CK-MB (CK-2) Rel Index Troponin T C-Reactive Protein LDL Cholesterol Direct Urine WBC (Auto) 01/18/22 01/18/22 01/18/22 11:08 11:08 11:42 WBC 11.3 H RBC 3.02 L Hgb 7.9 L Hct 25.6 L MCH 26 L RDW 21.8 H Plt Count Seg Neuts % (Manual) Lymphocytes % (Manual) Monocytes % (Manual) Eosinophils % (Manual) Nucleated RBC % Seg Neutrophils # Man Lymphocytes # (Manual) Monocytes # (Manual) Eosinophils # (Manual) D-Dimer Potassium 3.3 L Chloride BUN Creatinine 0.5 L Glucose 120 H POC Glucose 128 H Lactic Acid Ferritin Lactate Dehydrogenase CK-MB (CK-2) Rel Index Troponin T C-Reactive Protein LDL Cholesterol Direct Urine WBC (Auto) Allied health notes reviewed: RT
[2022-01-18 18:01] LABS: Anisocytosis 1+; Band Neutrophils # (Manual) 0.1 K/mm3; Basophils % (Manual) 0 % (0.0-1.8); Eosinophils % (Manual) 0 % (0.0-4.3); Hypochromasia 1+; Platelet Estimate Consistent w Auto; Total Cells Counted 100
[2022-01-18] MEDS ORDERED: POTASSIUM CHLORIDE 20 MEQ PACKET FEEDTUBE ONE (21:05)
[2022-01-18] MEDS: INSULIN GLARGINE 100 UNITS/ML SUB-Q SCH (21:36)
[2022-01-19] MEDS: INSULIN LISPRO 100 UNIT/ML SUB-Q SCH ×5 (00:20→23:29)
[2022-01-19] MEDS: SODIUM CHLORIDE 0.9% 1000 ML 1,000 ML IV SCH ×2 (00:21→14:00)
[2022-01-19] MEDS: HEPARIN 5,000 UNIT/1 ML VIAL SUB-Q SCH ×3 (05:41→22:00)
[2022-01-19] MEDS: METOPROLOL TARTRATE 25 MG TAB PO SCH ×3 (05:41→21:59)
--- NOTE | 2022-01-19 08:09 | Progress Note ---
Assessment and Plan 86-year-old -[place] female resident of a custodial with known history of seizure disorder, CVA, hypertension and dementia brought into the emergency room for evaluation of shortness of breath which has been ongoing for the past few days. Shortness of breath is said to have been progressive and therefore patient brought in by EMS. Most of the history was obtained from the ER staff as patient is unable to give any history . Family members also not available. There has not been any history of fever or chills, no cough. Patient found to be in respiratory distress upon arrival in the emergency room. She was placed on nonrebreather. Work-up in the emergency room today, labs reveals leukocytosis of 15.2, D-dimer of 1128, lactic acid of 2.1, troponin of 0.091, BUN of 25 and creatinine of 0.6. Chest x-ray reveals scattered patchy airspace opacities throughout the lungs suggesting multifocal pneumonia. Patient has history of arthritis, diabetes, GERD, hypertension, hyperlipidemia, seizures, stroke, other (Dementia,) Patient sleeping at this time. Not responding to verbal stimuli. Patient is on 2 litres O2. O2 saturation 99%. No acute respiratory distress. Patient running low grade temp. Has mild leukocytosis. Blood pressure 165/71 , Pulse 62 , Respirations 22 CT angiogram of the chest 01/12/22 was negative for pulmonary embolism. There is also interval worsening of multifocal bilateral pneumonia. Patient was commenced on empiric IV antibiotics in the emergency room Chest xray 01/15/22 reported No significant interval change in right greater than left mid and lower lung zone airspace opacities. No significant effusion. No pneumothorax. Patient is on dexamethasone, S/C Heparin, Prevacid. - Patient Problems (1) Acute respiratory failure with hypoxia Current Visit: No Status: Acute Plan to address problem: O2 2 litres via nasal canula. Continue dexamethasone. Recommend albuterol/atrovent aerosol treatments. S/C Heparin. Prevacid. (2) Multifocal pneumonia Current Visit: Yes Status: Acute Plan to address problem: Patient treated with cefepime and vancomycin. (3) Altered mental status Current Visit: Yes Status: Acute Qualifiers: Altered mental status type: unspecified Qualified Code(s): R41.82 - Altered mental status, unspecified Plan to address problem: Management as per primary care. (4) Sepsis Current Visit: Yes Status: Acute Qualifiers: Sepsis type: sepsis due to unspecified organism Sepsis acute organ dysfunction status: unspecified Qualified Code(s): A41.9 - Sepsis, unspecified organism Plan to address problem: Patient was on cefepime and vancomycin. (5) Acute kidney injury Current Visit: No Status: Acute Plan to address problem: Management as per nephrology. (6) Acute metabolic encephalopathy Current Visit: No Status: Acute Plan to address problem: Management as per primary care. (7) History of CVA with residual deficit Current Visit: No Status: Acute Plan to address problem: Management as per primary care and neurology. (8) Hypertension Current Visit: No Status: Acute Plan to address problem: Management as per primary care. (9) Seizure disorder Current Visit: No Status: Chronic Plan to address problem: Patient is on Keppra. Management as per primary care and neurology. (10) Type 2 diabetes mellitus Current Visit: No Status: Chronic Plan to address problem: Management as per primary care. Subjective Date of service: 01/19/22 Principal diagnosis: Bilateral pneumonia Interval history: 86-year-old -[place] female resident of a custodial with known history of seizure disorder, CVA, hypertension and dementia brought into the emergency room for evaluation of shortness of breath which has been ongoing for the past few days. Shortness of breath is said to have been progressive and therefore patient brought in by EMS. Most of the history was obtained from the ER staff as patient is unable to give any history . Family members also not available. There has not been any history of fever or chills, no cough. Patient found to be in respiratory distress upon arrival in the emergency room. She was placed on nonrebreather. Work-up in the emergency room today, labs reveals leukocytosis of 15.2, D-dimer of 1128, lactic acid of 2.1, troponin of 0.091, BUN of 25 and creatinine of 0.6. Chest x-ray reveals scattered patchy airspace opacities throughout the lungs suggesting multifocal pneumonia. Patient has history of arthritis, diabetes, GERD, hypertension, hyperlipidemia, seizures, stroke, other (Dementia,) Patient sleeping at this time. Not responding to verbal stimuli. Patient is on 2 litres O2. O2 saturation 99%. No acute respiratory distress. Patient running low grade temp. Has mild leukocytosis. Blood pressure 165/71 , Pulse 62 , Respirations 22 CT angiogram of the chest 01/12/22 was negative for pulmonary embolism. There is also interval worsening of multifocal bilateral pneumonia. Patient was commenced on empiric IV antibiotics in the emergency room Chest xray 01/15/22 reported No significant interval change in right greater than left mid and lower lung zone airspace opacities. No significant effusion. No pneumothorax. Patient is on dexamethasone, S/C Heparin, Prevacid. Objective Vital Signs - 12hr 01/18/22 01/18/22 01/18/22 21:03 21:27 21:31 Temperature 97.4 F L Pulse Rate 62 62 Respiratory 16 Rate Respiratory Rate [Right Knee] Blood Pressure 136/71 136/71 O2 Sat by Pulse 100 97 Oximetry 01/18/22 01/19/22 01/19/22 22:00 04:05 05:41 Temperature 98.6 F Pulse Rate 64 64 Respiratory 16 16 Rate Respiratory 16 Rate [Right Knee] Blood Pressure 159/72 159/72 O2 Sat by Pulse 100 100 Oximetry Constitutional: no acute distress, asleep Eyes: non-icteric ENT: oropharynx moist Neck: supple, no lymphadenopathy Ascultation: Bilateral: rhonchi Cardiovascular: regular rate and rhythm Gastrointestinal: normoactive bowel sounds, soft, non-tender Integumentary: normal Extremities: no cyanosis, no edema, pink and warm Neurologic: pupils equal and round Psychiatric: other (sleeping. Not responding to verbal stimuli.) CBC and BMP: 01/18/22 11:08 01/18/22 11:08 ABG, PT/INR, D-dimer: PT/INR, D-dimer PT 14.3 Sec. (12.2-14.9) 01/11/22 21:41 INR 1.00 (0.87-1.13) 01/11/22 21:41 D-Dimer 792.24 ng/mlDDU (0-234) H 01/14/22 09:19 Abnormal lab findings: Abnormal Labs 01/11/22 01/11/22 01/11/22 21:41 21:41 21:41 WBC 15.2 H RBC Hgb Hct MCH RDW 20.6 H Plt Count 450 H Seg Neuts % (Manual) 91.0 H Lymphocytes % (Manual) 6.0 L Monocytes % (Manual) Eosinophils % (Manual) Nucleated RBC % Seg Neutrophils # Man 13.8 H Lymphocytes # (Manual) 0.9 L Monocytes # (Manual) Eosinophils # (Manual) D-Dimer 1128.67 H Potassium Chloride BUN 25 H Creatinine Glucose 207 H POC Glucose Lactic Acid Ferritin Lactate Dehydrogenase CK-MB (CK-2) Rel Index Troponin T C-Reactive Protein LDL Cholesterol Direct Urine WBC (Auto) 01/11/22 01/11/22 01/12/22 21:41 23:30 00:35 WBC RBC Hgb Hct MCH RDW Plt Count Seg Neuts % (Manual) Lymphocytes % (Manual) Monocytes % (Manual) Eosinophils % (Manual) Nucleated RBC % Seg Neutrophils # Man Lymphocytes # (Manual) Monocytes # (Manual) Eosinophils # (Manual) D-Dimer Potassium Chloride BUN Creatinine Glucose POC Glucose Lactic Acid 2.10 H* 2.20 H* Ferritin Lactate Dehydrogenase CK-MB (CK-2) Rel Index 9.0 H Troponin T 0.091 H C-Reactive Protein LDL Cholesterol Direct Urine WBC (Auto) 01/12/22 01/12/22 01/12/22 00:35 07:43 10:47 WBC RBC Hgb Hct MCH RDW Plt Count Seg Neuts % (Manual) Lymphocytes % (Manual) Monocytes % (Manual) Eosinophils % (Manual) Nucleated RBC % Seg Neutrophils # Man Lymphocytes # (Manual) Monocytes # (Manual) Eosinophils # (Manual) D-Dimer 1304.06 H Potassium Chloride BUN Creatinine Glucose POC Glucose 112 H Lactic Acid Ferritin Lactate Dehydrogenase CK-MB (CK-2) Rel Index Troponin T 0.105 H* C-Reactive Protein LDL Cholesterol Direct Urine WBC (Auto) 01/12/22 01/12/22 01/12/22 10:47 10:47 12:42 WBC RBC Hgb Hct MCH RDW Plt Count Seg Neuts % (Manual) Lymphocytes % (Manual) Monocytes % (Manual) Eosinophils % (Manual) Nucleated RBC % Seg Neutrophils # Man Lymphocytes # (Manual) Monocytes # (Manual) Eosinophils # (Manual) D-Dimer Potassium Chloride BUN Creatinine Glucose 121 H POC Glucose 116 H Lactic Acid Ferritin 630.6 H Lactate Dehydrogenase 206 H CK-MB (CK-2) Rel Index Troponin T C-Reactive Protein 12.60 H LDL Cholesterol Direct Urine WBC (Auto) 01/12/22 01/12/22 01/12/22 16:06 19:04 22:50 WBC RBC Hgb Hct MCH RDW Plt Count Seg Neuts % (Manual) Lymphocytes % (Manual) Monocytes % (Manual) Eosinophils % (Manual) Nucleated RBC % Seg Neutrophils # Man Lymphocytes # (Manual) Monocytes # (Manual) Eosinophils # (Manual) D-Dimer Potassium Chloride BUN Creatinine Glucose POC Glucose 111 H 108 H Lactic Acid Ferritin Lactate Dehydrogenase CK-MB (CK-2) Rel Index Troponin T 0.055 H D C-Reactive Protein LDL Cholesterol Direct 26 L Urine WBC (Auto) 01/13/22 01/13/22 01/13/22 05:47 06:48 06:48 WBC RBC Hgb 9.8 L Hct MCH 26 L RDW 20.6 H Plt Count Seg Neuts % (Manual) 77.0 H Lymphocytes % (Manual) 9.0 L Monocytes % (Manual) Eosinophils % (Manual) 7.0 H Nucleated RBC % 1.0 H Seg Neutrophils # Man Lymphocytes # (Manual) 0.7 L Monocytes # (Manual) Eosinophils # (Manual) 0.6 H D-Dimer Potassium 2.7 L* D Chloride BUN Creatinine 0.5 L Glucose 128 H POC Glucose 118 H Lactic Acid Ferritin Lactate Dehydrogenase CK-MB (CK-2) Rel Index Troponin T C-Reactive Protein LDL Cholesterol Direct Urine WBC (Auto) 01/13/22 01/13/22 01/13/22 08:13 12:33 16:09 WBC RBC Hgb Hct MCH RDW Plt Count Seg Neuts % (Manual) Lymphocytes % (Manual) Monocytes % (Manual) Eosinophils % (Manual) Nucleated RBC % Seg Neutrophils # Man Lymphocytes # (Manual) Monocytes # (Manual) Eosinophils # (Manual) D-Dimer Potassium Chloride BUN Creatinine Glucose POC Glucose 130 H 152 H 154 H Lactic Acid Ferritin Lactate Dehydrogenase CK-MB (CK-2) Rel Index Troponin T C-Reactive Protein LDL Cholesterol Direct Urine WBC (Auto) 01/13/22 01/14/22 01/14/22 21:53 07:03 07:59 WBC RBC Hgb Hct MCH RDW Plt Count Seg Neuts % (Manual) Lymphocytes % (Manual) Monocytes % (Manual) Eosinophils % (Manual) Nucleated RBC % Seg Neutrophils # Man Lymphocytes # (Manual) Monocytes # (Manual) Eosinophils # (Manual) D-Dimer Potassium Chloride BUN Creatinine Glucose POC Glucose 130 H 148 H Lactic Acid Ferritin Lactate Dehydrogenase CK-MB (CK-2) Rel Index Troponin T C-Reactive Protein LDL Cholesterol Direct Urine WBC (Auto) 41.0 H 01/14/22 01/14/22 01/14/22 09:19 09:19 11:48 WBC RBC Hgb Hct MCH RDW Plt Count Seg Neuts % (Manual) Lymphocytes % (Manual) Monocytes % (Manual) Eosinophils % (Manual) Nucleated RBC % Seg Neutrophils # Man Lymphocytes # (Manual) Monocytes # (Manual) Eosinophils # (Manual) D-Dimer 792.24 H Potassium Chloride 110.8 H BUN Creatinine 0.5 L Glucose 148 H POC Glucose 163 H Lactic Acid Ferritin Lactate Dehydrogenase CK-MB (CK-2) Rel Index Troponin T C-Reactive Protein LDL Cholesterol Direct Urine WBC (Auto) 01/14/22 01/14/22 01/15/22 16:06 21:51 04:13 WBC RBC 3.25 L Hgb 8.8 L Hct 27.2 L MCH 27 L RDW 21.6 H Plt Count Seg Neuts % (Manual) Lymphocytes % (Manual) Monocytes % (Manual) 19.0 H Eosinophils % (Manual) Nucleated RBC % Seg Neutrophils # Man Lymphocytes # (Manual) Monocytes # (Manual) 1.4 H Eosinophils # (Manual) D-Dimer Potassium Chloride BUN Creatinine Glucose POC Glucose 133 H 137 H Lactic Acid Ferritin Lactate Dehydrogenase CK-MB (CK-2) Rel Index Troponin T C-Reactive Protein LDL Cholesterol Direct Urine WBC (Auto) 01/15/22 01/15/22 01/15/22 04:13 05:42 11:34 WBC RBC Hgb Hct MCH RDW Plt Count Seg Neuts % (Manual) Lymphocytes % (Manual) Monocytes % (Manual) Eosinophils % (Manual) Nucleated RBC % Seg Neutrophils # Man Lymphocytes # (Manual) Monocytes # (Manual) Eosinophils # (Manual) D-Dimer Potassium 3.2 L Chloride BUN Creatinine 0.4 L Glucose 132 H POC Glucose 148 H 156 H Lactic Acid Ferritin Lactate Dehydrogenase CK-MB (CK-2) Rel Index Troponin T C-Reactive Protein LDL Cholesterol Direct Urine WBC (Auto) 01/15/22 01/15/22 01/16/22 16:54 23:54 05:15 WBC RBC Hgb Hct MCH RDW Plt Count Seg Neuts % (Manual) Lymphocytes % (Manual) Monocytes % (Manual) Eosinophils % (Manual) Nucleated RBC % Seg Neutrophils # Man Lymphocytes # (Manual) Monocytes # (Manual) Eosinophils # (Manual) D-Dimer Potassium Chloride BUN Creatinine Glucose POC Glucose 126 H 126 H 147 H Lactic Acid Ferritin Lactate Dehydrogenase CK-MB (CK-2) Rel Index Troponin T C-Reactive Protein LDL Cholesterol Direct Urine WBC (Auto) 01/16/22 01/16/22 01/16/22 11:39 16:42 22:44 WBC RBC Hgb Hct MCH RDW Plt Count Seg Neuts % (Manual) Lymphocytes % (Manual) Monocytes % (Manual) Eosinophils % (Manual) Nucleated RBC % Seg Neutrophils # Man Lymphocytes # (Manual) Monocytes # (Manual) Eosinophils # (Manual) D-Dimer Potassium Chloride BUN Creatinine Glucose POC Glucose 160 H 172 H 154 H Lactic Acid Ferritin Lactate Dehydrogenase CK-MB (CK-2) Rel Index Troponin T C-Reactive Protein LDL Cholesterol Direct Urine WBC (Auto) 01/16/22 01/17/22 01/17/22 23:48 06:12 12:01 WBC RBC Hgb Hct MCH RDW Plt Count Seg Neuts % (Manual) Lymphocytes % (Manual) Monocytes % (Manual) Eosinophils % (Manual) Nucleated RBC % Seg Neutrophils # Man Lymphocytes # (Manual) Monocytes # (Manual) Eosinophils # (Manual) D-Dimer Potassium Chloride BUN Creatinine Glucose POC Glucose 150 H 130 H 132 H Lactic Acid Ferritin Lactate Dehydrogenase CK-MB (CK-2) Rel Index Troponin T C-Reactive Protein LDL Cholesterol Direct Urine WBC (Auto) 01/17/22 01/17/22 01/18/22 17:43 23:47 05:46 WBC RBC Hgb Hct MCH RDW Plt Count Seg Neuts % (Manual) Lymphocytes % (Manual) Monocytes % (Manual) Eosinophils % (Manual) Nucleated RBC % Seg Neutrophils # Man Lymphocytes # (Manual) Monocytes # (Manual) Eosinophils # (Manual) D-Dimer Potassium Chloride BUN Creatinine Glucose POC Glucose 187 H 154 H 116 H Lactic Acid Ferritin Lactate Dehydrogenase CK-MB (CK-2) Rel Index Troponin T C-Reactive Protein LDL Cholesterol Direct Urine WBC (Auto) 01/18/22 01/18/22 01/18/22 11:08 11:08 11:42 WBC 11.3 H RBC 3.02 L Hgb 7.9 L Hct 25.6 L MCH 26 L RDW 21.8 H Plt Count Seg Neuts % (Manual) 73.0 H Lymphocytes % (Manual) Monocytes % (Manual) Eosinophils % (Manual) Nucleated RBC % 1.0 H Seg Neutrophils # Man 8.2 H Lymphocytes # (Manual) Monocytes # (Manual) Eosinophils # (Manual) D-Dimer Potassium 3.3 L Chloride BUN Creatinine 0.5 L Glucose 120 H POC Glucose 128 H Lactic Acid Ferritin Lactate Dehydrogenase CK-MB (CK-2) Rel Index Troponin T C-Reactive Protein LDL Cholesterol Direct Urine WBC (Auto) 01/18/22 01/19/22 01/19/22 17:32 00:02 05:53 WBC RBC Hgb Hct MCH RDW Plt Count Seg Neuts % (Manual) Lymphocytes % (Manual) Monocytes % (Manual) Eosinophils % (Manual) Nucleated RBC % Seg Neutrophils # Man Lymphocytes # (Manual) Monocytes # (Manual) Eosinophils # (Manual) D-Dimer Potassium Chloride BUN Creatinine Glucose POC Glucose 216 H 139 H 117 H Lactic Acid Ferritin Lactate Dehydrogenase CK-MB (CK-2) Rel Index Troponin T C-Reactive Protein LDL Cholesterol Direct Urine WBC (Auto) Chest x-ray: report reviewed, image reviewed CT scan - chest: report reviewed, image reviewed Additional Studies: CHEST 1 VIEW 01/15/22 INDICATION / CLINICAL INFORMATION: pneumonia. COMPARISON: 01/11/2022 FINDINGS: SUPPORT DEVICES: None. HEART / MEDIASTINUM: No significant abnormality. LUNGS / PLEURA: No significant interval change in right greater than left mid and lower lung zone airspace opacities. No significant effusion. No pneumothorax. ADDITIONAL FINDINGS: No significant additional findings. IMPRESSION: 1. No significant change. CTA CHEST WITH CONTRAST 01/12/22 INDICATION / CLINICAL INFORMATION: SOB with elevated d-dimer. TECHNIQUE: Axial CT images were obtained through the chest after injection of 100 cc Omni 350 IV contrast. 3 plane MIP and/or 3D reconstructions were produced. All CT scans at this location are performed using CT dose reduction for ALARA by means of automated exposure control. COMPARISON: CTA chest 01/06/2022 FINDINGS: Moderate respiratory motion artifact. PULMONARY EMBOLUS: None. THORACIC AORTA: Mild atherosclerotic calcification without acute abnormality. HEART: No significant abnormality. CORONARY ARTERY CALCIFICATION: Present -- Mild. MEDIASTINUM / LISSETTE: No significant abnormality. PLEURA: No pleural effusion. No pneumothorax. LUNGS: Moderate groundglass and streaky pulmonary disease both lower lobes, right middle and upper lobes characteristic for probable Covid pneumonia , worsened since prior study ADDITIONAL FINDINGS: None. UPPER ABDOMEN: No acute findings. SKELETAL STRUCTURES: No significant osseous abnormality. IMPRESSION: 1. No CT evidence for pulmonary embolism. 2. Interval worsening multifocal bilateral pneumonia Allied health notes reviewed: RT
[2022-01-19] MEDS: ASCORBIC ACID 500 MG TAB PO SCH ×2 (09:19→21:59)
[2022-01-19] MEDS: allopurinoL 300 MG TAB PO SCH (09:19)
[2022-01-19] MEDS: ZINC SULFATE 220 MG CAP PO SCH ×2 (09:19→21:59)
[2022-01-19] MEDS: levETIRAcetam 500 MG/5 ML ORAL LIQD FEEDTUBE SCH ×2 (09:19→21:58)
[2022-01-19] MEDS: LINAGLIPTIN 5 MG TAB PO SCH (09:19)
[2022-01-19] MEDS: SENNOSIDES/DOCUSATE SODIUM 8.6/50 MG TAB FEEDTUBE SCH ×2 (09:19→21:58)
[2022-01-19] MEDS: LACOSAMIDE 100 MG TAB PO SCH ×2 (09:20→21:58)
[2022-01-19] MEDS: CHOLECALCIFEROL (VIT D3) 1000 UNIT (25 mcg) TAB PO SCH (09:20)
[2022-01-19] MEDS: DEXAMETHASONE 2 MG TAB PO SCH (09:20)
[2022-01-19] MEDS: amLODIPine 10 MG TAB PO SCH (09:20)
[2022-01-19] MEDS: LANSOPRAZOLE 30 MG SOLUTAB FEEDTUBE SCH (09:21)
[2022-01-19] MEDS: FERROUS SULFATE 325 MG TAB PO SCH (09:21)
[2022-01-19] MEDS: ASPIRIN EC 81 MG TAB PO SCH (09:21)
[2022-01-19] MEDS: POLYETHYLENE GLYCOL 3350 17 GM POWDER PO SCH (09:21)
--- NOTE | 2022-01-19 14:00 | Discharge Summary ---
Providers - Providers Date of Admission: 01/12/22 00:52 Date of discharge: 01/19/22 Attending physician: CATIA GAMEZ 01/12/22 00:52 Consult to Physician [CONS] Routine Comment: Consulting Provider: IRVIN GONZALEZ Physician Instructions: Reason For Exam: Multifocal pneumonia, PUI 01/12/22 01:42 Consult to Physician [CONS] Routine Comment: Consulting Provider: HILLARY MARTINEZ Physician Instructions: Reason For Exam: Pneumonia,sepsis,Resp. failure 01/12/22 05:15 Consult to Physician [CONS] Routine Comment: Consulting Provider: IRVIN GONZALEZ Physician Instructions: Reason For Exam: Pneumonia with sepsis 01/12/22 10:45 Consult to Physician [CONS] Routine Comment: Consulting Provider: GLORIA BENITEZ Physician Instructions: Reason For Exam: Tachycardia, Elevate trop ?chronicity 01/12/22 10:47 Consult to Dietitian/Nutrition [CONS] Routine Physician Instructions: Reason For Exam: Reason for Consult: Write/Manage Tube Feeding Primary care physician: MELISSA UREÑA Hospitalization Reason for admission: Worsening shortness of breath/bilateral pneumonia Condition: Stable Pertinent studies: Chest x-ray; scattered patchy airspace opacities throughout the lungs suggesting multifocal pneumonia CTA chest no CT evidence of pulmonary embolism, interval worsening multifocal bilateral pneumonia Repeat chest x-ray; no significant changes right greater than left mid and lower lung zone airspace opacities no significant effusion no pneumothorax Hospital course: 86-year-old female [facility] resident with PMH of seizure disorder, prior CVA, hypertension, dementia with admitted for dyspnea. Patient had a chest x- ray and CTA that revealed multifocal pneumonia. No PE. Patient was noted to have leukocytosis with WBC 15.2 and lactate of 2.2.. Her work-up is consistent with bilateral pneumonia and sepsis, high suspicion for COVID-19 however COVID-19 test was negative Patient was evaluated by ID received and completed cefepime and vancomycin patient also has UTI per urine analysis and hypokalemia corrected, Patient was seen by pulm medications optimized, blood cultures were negative to date. Patient required 2 L of nasal cannula oxygen Case management has assisted with discharge planning, patient is being discharged to intermediate facility today. Patient is hemodynamically and clinically stable at discharge With guarded prognosis in view of advanced age and multiple medical problems --Sepsis. Secondary to bilateral pneumonia and UTI --Bilateral pneumonia. COVID PCR negative --UTI.[Urinary tract infection per UA] --Hypokalemia; resolved --Dementia.; Supportive care --Elevated troponin/nonspecific Did not have cardiac symptoms. --Reactive thrombocytosis. --Sinus tachycardia; resolved probably due to sepsis --History of CAD; continue current cardiac medications --Hypertension; well-controlled --History of seizure disorder; seizure precautions and antiepileptic medications --History CVA; residual weakness Closely monitor the patient and adjust management as needed Patient is being discharged and transferred to intermediate facility 01/13/2022. ID started empiric antibiotics of cefepime and vancomycin. We will follow-up blood cultures. Replete potassium and check magnesium. Follow-up BMP in a.m. 01/14/2022. Continue IV antibiotics per ID recommendations for total of 5 days. Continue to follow-up cultures. Continue empiric medical therapy with topical nitrates, beta-raheem and antiplatelet therapy. Cardiology following. Urinalysis did reveal UTI. 01/15/2022. Continue IV antibiotics per ID recommendations for total of 5 days. Continue to follow-up cultures. Continue empiric medical therapy with topical nitrates, beta-raheem and antiplatelet therapy. Cardiology following. Urinalysis did reveal UTI. 01/16/2022. Blood cultures with no growth x48 hours. Continue empiric medical therapy with topical nitrates, beta-raheem and antiplatelet therapy. Cardiology following. Urinalysis did reveal UTI. 01/17/2022. Blood cultures remain negative. Cefepime and vancomycin completed. We will start Levaquin 500 mg daily to complete 5 days per ID recommendations. 01/19/2020; COVID-19 test is negative, DC antibiotics DC planning per case management, possible arrowhead placement when stable Disposition: 03 [facility] Final Discharge Diagnosis (Prints w/discharge instructions): Sepsis secondary to bilateral pneumonia and UTI. Bilateral pneumonia COVID PCR negative. Urinary tract infection. Hypokalemia resolved. Dementia. Reactive thrombocytosis. Sinus tachycardia resolved. History of coronary artery disease stable on medication hypertension well controlled. History of seizure disorder continue antiepileptic medication. History of CVA with residual weakness Time spent for discharge: 40 minutes Core Measure Documentation - Palliative Care Palliative Care/ Comfort Measures: Not Applicable - Core Measures Any of the following diagnoses?: none Exam - Constitutional Vitals: Temp Pulse Resp BP Pulse Ox 98.6 F 64 16 159/72 100 01/19/22 04:05 01/19/22 05:41 01/19/22 04:05 01/19/22 05:41 01/19/22 13:35 General appearance: Present: no acute distress, well-nourished - EENT Eyes: Present: PERRL, EOM intact - Neck Neck: Present: supple, normal ROM - Respiratory Respiratory effort: normal Respiratory: bilateral: diminished, negative: rales, rhonchi, wheezing - Cardiovascular Rhythm: regular Heart Sounds: Present: S1 & S2 - Extremities Extremities: no ischemia, No edema - Abdominal General gastrointestinal: Present: soft, non-tender, non-distended - Integumentary Integumentary: Present: clear, warm - Musculoskeletal Musculoskeletal: strength equal bilaterally, generalized weakness - Psychiatric Psychiatric: appropriate mood/affect, agitated - Neurologic Neurologic: moves all extremities Plan Activity: advance as tolerated, fall precautions, other (Aspiration precautions) Diet: other (Tube feeding diet) Additional Instructions: If you have worsening symptoms contact MD or go to the nearest emergency room. Advised to comply with medications and follow-up visits. Fall precautions. Aspiration precautions. Seizure precautions Follow up with: MELISSA UREÑA MD [Primary Care Provider] - 3-5 Days HILLARY MARTINEZ MD [Staff Physician] - 7 Days GLORIA BENITEZ MD [Staff Physician] - 14 Days
--- NOTE | 2022-01-19 16:46 | Progress Note ---
Assessment and Plan Cultures: 01/12/2022 COVID-19 PCR: Negative A/P: 86-year-old female with seizure disorder, prior CVA, hypertension, dementia, prison resident admitted with worsening shortness of breath" #Sepsis, secondary to bilateral pneumonia: residential resident. Possibility of aspiration also exists. UA not done. 01/12/2022 procalcitonin 9.4. No blood cultures done. #Recent COVID-19 pneumonia: Recently discharged on 01/11/2022, completed remdesivir and received 10-day course of Decadron. #Acute hypoxic respiratory failure: Secondary to pneumonia. Stable to improving. #Dementia #Elevated troponin #Reactive thrombocytosis: likely secondary to sepsis Recs: -Stopped antibiotics. OK for DC from ID perspective Daniel Otto MD [facility] ([facility] O: [phone] F: [phone] Subjective Date of service: 01/19/22 Principal diagnosis: Bilateral pneumonia Interval history: Afebrile, no acute issues. Objective - Exam Narrative Exam: Physical Exam: Constitutional: awake, doesn't follow commands Head, Ears, Nose: Normocephalic, atraumatic. External ears, nose normal Eyes: Conjunctivae/corneas clear. No icterus. No ptosis. Neck: Supple, no meningeal signs Oral: edentulous Cardiovascular: S1, S2 + Respiratory: clear b/l GI: Soft, non-tender; bowel sounds normal. No peritoneal signs Musculoskeletal: No pedal edema, no cyanosis. Skin: No rash or abscess Hem/Lymphatic: No palpable cervical or supraclavicular nodes. Psych: Calm, no agitation Neurological: awake - Constitutional Vitals: Vital Signs Temp Pulse Resp BP Pulse Ox 98.6 F 64 16 159/72 100 01/19/22 04:05 01/19/22 05:41 01/19/22 04:05 01/19/22 05:41 01/19/22 13:35 Temperature -Last 24 Hours Temperature 98.6 F Temperature 97.4 F - Labs CBC & Chem 7: 01/18/22 11:08 01/18/22 11:08 Labs: Abnormal lab results 01/18/22 01/18/22 01/19/22 Range/Units 11:08 17:32 00:02 Seg Neuts % (Manual) 73.0 H (40.0-70.0) % Nucleated RBC % 1.0 H (0.0-0.9) % Seg Neutrophils # Man 8.2 H (1.8-7.7) K/mm3 POC Glucose 216 H 139 H (70-105) mg/dL 01/19/22 01/19/22 Range/Units 05:53 11:49 Seg Neuts % (Manual) (40.0-70.0) % Nucleated RBC % (0.0-0.9) % Seg Neutrophils # Man (1.8-7.7) K/mm3 POC Glucose 117 H 119 H (70-105) mg/dL
[2022-01-19 22:00] VITALS: BP 160/86
[2022-01-19] MEDS: INSULIN GLARGINE 100 UNITS/ML SUB-Q SCH (23:29)
== END 2022-01-20 02:45 | DRG 871 ==
LOC: ED 19:57 → 3A 01-12 00:52 → IMCU 01-12 01:47 → 3A 01-12 11:05
PROVIDERS: ADMIT Internal Medicine Geriatric Medicine; ATTEND Internal Medicine
DX: A41.9 Sepsis, unspecified organism (principal); J96.01 Acute respiratory failure with hypoxia; G93.41 Metabolic encephalopathy; J18.9 Pneumonia, unspecified organism; N39.0 Urinary tract infection, site not specified; N17.9 Acute kidney failure, unspecified; Z20.822 Contact with and (suspected) exposure to COVID-19; I10 Essential (primary) hypertension; Z79.899 Other long term (current) drug therapy; Z86.73 Personal history of transient ischemic attack (TIA), and cerebral infarction without residual deficits; M19.90 Unspecified osteoarthritis, unspecified site; M10.9 Gout, unspecified; F03.90 Unspecified dementia, unspecified severity, without behavioral disturbance, psychotic disturbance, mood disturbance, and anxiety; Z79.4 Long term (current) use of insulin; Z79.82 Long term (current) use of aspirin; G40.909 Epilepsy, unspecified, not intractable, without status epilepticus; E78.5 Hyperlipidemia, unspecified; D75.839 Thrombocytosis, unspecified; E87.6 Hypokalemia; I25.10 Atherosclerotic heart disease of native coronary artery without angina pectoris
CPT/HCPCS: 36415; 71045; 71275; 80048; 80053; 80061; 81001; 82140; 82550; 82553; 82728; 82947; 82962; 83615; 83735; 84145; 84484; 85007; 85025; 85379; 85610; 85730; 86140; 87040; 87086; 87641; 93005; 94760; G0378; Q9967; J0692; J1644; J1815; J1956; J2543; J3370; J7030; J8540; U0003

== ENCOUNTER 2022-04-19 05:05 | Inpatient (IN) | payer MEDICARE ==
[2022-04-19] MEDS ORDERED: SODIUM CHLORIDE 0.9% 1000 ML IV SOLN IV ONE (05:15)
[2022-04-19] MEDS ORDERED: MINERAL OIL/PETROLATUM, WHITE OPHTH OINT 3.5 GM OU PRN (05:15)
[2022-04-19] MEDS ORDERED: LIP THERAPY VASELINE TP PRN (05:15)
[2022-04-19] MEDS ORDERED: VANCOMYCIN 1,500 MG in SODIUM CHLORIDE 0.9% 500 ML 500 ML IV ONE (05:15)
[2022-04-19] MEDS ORDERED: CEFEPIME/NS 2 GM/100 ML 2 GM/100 ML BAG IV ONE (05:15)
[2022-04-19] MEDS ORDERED: dexAMETHasone 4 MG/ML VIAL IV ONE (05:17)
[2022-04-19] MEDS ORDERED: ACETAMINOPHEN 650 MG RECT SUPP PR ONE (05:17)
--- NOTE | 2022-04-19 05:18 | Emergency Department Report ---
<RADHA GARNER - Last Filed: 04/19/22 05:58> ED General Adult HPI - General Chief complaint: Dyspnea/Respdistress Stated complaint: ROBERT Time Seen by Provider: 04/19/22 05:14 Source: EMS (Verbal report received from emergency medical services. EMS documentation not available at time of chart dictation ), RN notes reviewed, old records reviewed Mode of arrival: Stretcher Limitations: Altered Mental Status, Physical Limitation - History of Present Illness Initial comments: The patient was evaluated in the emergency department for symptoms described in the history of present illness. He/she was evaluated in the context of the global COVID-19 pandemic, which necessitated consideration that the patient might be at risk for infection with the virus that causes COVID-19. Institutional protocols and algorithms that pertain to the evaluation of patients at risk for COVID-19 are in a state of rapid change based on inform ation released by regulatory bodies including the CDC and federal and state organizations. These policies and algorithms were followed during the patient's care in the emergency department. Please note that these policies, procedures and recommendations changed on a rapid basis. Past medical history: Dementia, stroke, hypertension, multifocal pneumonia This is an 87-year-old female from a group home, who as per EMS is a full code. She is brought to the hospital by emergency medical services with an EMS articulated complaint of hypoxia, shortness of breath and weakness. EMS is not entirely certain when last known well time is. Patient's primary care physician is Dr. Darryl Varela. EMS reports hypoxia in the field. In the emergency room, patient has labored breathing, is febrile, tachycardic, and is devoid of a gag reflex. Given that she is full code, and obviously septic, she is intubated using medication induction techniques, rapid sequence techniques, for airway protection. A code sepsis is subsequently called overhead. Patient is demented, and therefore, not able to describe the qualitative nature of symptoms, exacerbating factors leading factors or aggravating factors. -: unknown - Related Data Home Medications Medication Instructions Recorded Confirmed Last Taken Ferrous Sulfate [Iron 325 MG] 325 mg PO DAILY 03/17/21 01/13/22 Unknown Lovastatin [Altoprev] 40 mg PO DAILY 03/17/21 01/13/22 Unknown allopurinoL [Zyloprim] 300 mg PO QDAY 03/17/21 01/13/22 Unknown amLODIPine 10 mg PO DAILY 03/17/21 01/13/22 Unknown Previous Rx's Medication Instructions Recorded Last Taken Type Aspirin [Adult Aspirin] 81 mg PO DAILY #30 tablet. 03/22/21 Unknown Rx Linagliptin [Tradjenta] 5 mg PO QAMDIAB #30 tablet 03/22/21 Unknown Rx Insulin Glargine [Lantus VIAL] 10 units SUB-Q QHS #30 ml 11/04/21 Unknown Rx Lacosamide [Vimpat] 100 mg PO Q12HR #60 tablet 11/04/21 Unknown Rx Lansoprazole Solutab [Prevacid 30 mg FEEDTUBE QDAY #30 tab.rapdis 11/04/21 Unkno wn Rx Solutab] Sennosides/Docusate [Senokot S] 2 tab FEEDTUBE BID #30 tablet 11/04/21 Unknown Rx levETIRAcetam [Keppra] 1,000 mg FEEDTUBE BID #600 ml 11/04/21 Unknown Rx Ascorbic Acid [Vitamin C] 500 mg PO BID tablet 01/11/22 Unknown Rx Cholecalciferol Vit D3 [Vitamin D3 1,000 unit PO QDAY tablet 01/11/22 Unknown Rx 1,000 UNIT TAB] Dexamethasone [Decadron] 6 mg PO QDAY 5 Days #5 tab 01/11/22 Unknown Rx Metoprolol [Lopressor TAB] 25 mg PO Q8HR 30 Days #90 tablet 01/11/22 Unknown Rx Zinc Sulfate 220 mg PO BID capsule 01/11/22 Unknown Rx polyethylene glycoL 3350 [Miralax 17 gm PO QDAY powd.pack 01/11/22 Unknown Rx 3350] Acetaminophen [Acetaminophen TAB] 650 mg PO Q4H PRN tablet 01/19/22 Unknown Rx Lipase/Protease/Amylase [Pancreaze 1 each FEEDTUBE PRN PRN capsule 01/19/22 Unknown Rx 10,500 Unit] Magnesium Hydroxide [Milk of 30 ml PO Q4H PRN oral.liqd 01/19/22 Unknown Rx Magnesia] Sodium Bicarbonate 325 mg FEEDTUBE PRN PRN tablet 01/19/22 Unknown Rx Allergies Allergy/AdvReac Type Severity Reaction Status Date / Time No Known Allergies Allergy Verified 03/15/21 10:30 ED Review of Systems Comment: Unobtainable due to pts medical conditions ED Past Medical Hx - Past Medical History Hx Hypertension: Yes Hx CVA: Yes Hx Diabetes: Yes Hx GERD: Yes Hx Renal Disease: Yes (JIMMY) Hx Arthritis: Yes (Gout) Hx Seizures: Yes Hx Dementia: Yes - Surgical History Additional Surgical History: Feeding tube - Social History Smoking Status: Never Smoker - Medications Home Medications: Home Medications Medication Instructions Recorded Confirmed Last Taken Type Ferrous Sulfate [Iron 325 MG] 325 mg PO DAILY 03/17/21 01/13/22 Unknown History Lovastatin [Altoprev] 40 mg PO DAILY 03/17/21 01/13/22 Unknown History allopurinoL [Zyloprim] 300 mg PO QDAY 03/17/21 01/13/22 Unknown History amLODIPine 10 mg PO DAILY 03/17/21 01/13/22 Unknown History Aspirin [Adult Aspirin] 81 mg PO DAILY #30 tablet. 03/22/21 01/13/22 Unknown Rx Linagliptin [Tradjenta] 5 mg PO QAMDIAB #30 tablet 03/22/21 01/13/22 Unknown Rx Insulin Glargine [Lantus VIAL] 10 units SUB-Q QHS #30 ml 11/04/21 01/13/22 Unknown Rx Lacosamide [Vimpat] 100 mg PO Q12HR #60 tablet 11/04/21 01/13/22 Unknown Rx Lansoprazole Solutab [Prevacid 30 mg FEEDTUBE QDAY #30 tab.rapdis 11/04/21 01/13/22 Unknown Rx Solutab] Sennosides/Docusate [Senokot S] 2 tab FEEDTUBE BID #30 tablet 11/04/21 01/13/22 Unknown Rx levETIRAcetam [Keppra] 1,000 mg FEEDTUBE BID #600 ml 11/04/21 01/13/22 Unknown Rx Ascorbic Acid [Vitamin C] 500 mg PO BID tablet 01/11/22 01/13/22 Unknown Rx Cholecalciferol Vit D3 [Vitamin D3 1,000 unit PO QDAY tablet 01/11/22 01/13/22 Unknown Rx 1,000 UNIT TAB] Dexamethasone [Decadron] 6 mg PO QDAY 5 Days #5 tab 01/11/22 01/13/22 Unknown Rx Metoprolol [Lopressor TAB] 25 mg PO Q8HR 30 Days #90 tablet 01/11/22 01/13/22 Unknown Rx Zinc Sulfate 220 mg PO BID capsule 01/11/22 01/13/22 Unknown Rx polyethylene glycoL 3350 [Miralax 17 gm PO QDAY powd.pack 01/11/22 01/13/22 Unknown Rx 3350] Acetaminophen [Acetaminophen TAB] 650 mg PO Q4H PRN tablet 01/19/22 Unknown Rx Lipase/Protease/Amylase [Pancreaze 1 each FEEDTUBE PRN PRN capsule 01/19/22 Unknown Rx 10,500 Unit] Magnesium Hydroxide [Milk of 30 ml PO Q4H PRN oral.liqd 01/19/22 Unknown Rx Magnesia] Sodium Bicarbonate 325 mg FEEDTUBE PRN PRN tablet 01/19/22 Unknown Rx ED Physical Exam - General Limitations: Altered Mental Status General appearance: lethargic - Head Head exam: Present: atraumatic, normocephalic - Eye Eye exam: Present: normal appearance - ENT ENT exam: Present: normal orophraynx, mucous membranes moist, normal external ear exam - Neck Neck exam: Present: normal inspection. Absent: tenderness, meningismus - Respiratory Respiratory exam: Present: respiratory distress, rales, rhonchi, accessory muscle use - Cardiovascular Cardiovascular Exam: Present: normal rhythm, tachycardia. Absent: systolic murmur, diastolic murmur, rubs, gallop - GI/Abdominal GI/Abdominal exam: Present: soft, other (There is a feeding tube in place). Absent: distended, tenderness, guarding, rebound, rigid, pulsatile mass - Rectal Rectal exam: Present: normal inspection - External exam: Present: normal external exam - Extremities Exam Extremities exam: Present: other (Contractures noted in lower extremities. 2+ pulses noted in the bilateral upper and lower extremities. There is no palpable cord. negative Homans sign. Muscular compartments are soft. The pelvis is stable.). Absent: normal inspection (Venous stasis noted in the bilateral lower extremities) - Back Exam Back exam: Present: normal inspection. Absent: tenderness, CVA tenderness (R), CVA tenderness (L), paraspinal tenderness, vertebral tenderness - Neurological Exam Neurological exam: Present: altered, other (Prior to intubation, the patient is awake. The patient has sonorous respirations) - Skin Skin exam: Present: warm, dry, intact, normal color. Absent: rash ED Course - Reevaluation(s) Reevaluation #1: 04/19/22 05:41 Differential diagnosis, including not limited to: Sepsis, pneumonia, COVID, UTI, dementia Assessment and plan: 87-year-old female, ruling in for severe sepsis, manifested by respiratory failure, fever, tachycardia, and inability to protect airway. As per EMS she is a full code, and she does not arrived with DNR, DNI paperwork. The patient is intubated by himself using rapid sequence induction techniques, with 1 attempt. Please see procedure note. Code sepsis is called overhead. Obtain COVID swab, start vancomycin, cefepime, and steroids. Obtain appropriate laboratory studies. Contacted critical care physician on-call, Dr. Fidel Early Discussed patient's current history, physical, and clinical impression. She will follow in consultation from a critical care. Care be transferred to the [facility] physician, Dr. Masha Jay, to follow-up on laboratory studies, and admit patient to the medical service, once the remainder of her diagnostics result Prognosis is poor/guarded 04/19/22 05:58 Patient found to have macrocytic anemia. Dark stool on rectal examination. Guaiac card sent. Protonix ordered. Packed red blood cell transfusion ordered - Intubation Time Out Performed: No (Emergency situation) Sedative: Etomidate Mg Given: 20 Paralytic: Rocuronium Mg Given: 50 Laryngoscope: fiberoptic video scope Size: 3 Assist Device Used: fiberoptic device ET Tube Size: 7.5 Tube Secured Depth (cm): 23 Tube Secured Location: teeth Tube Placement Confirmation: visualized tube passing t, equal breath sounds bilat, confirmation by capnometr Patient Tolerated Procedure: well Intubation Complications: none Additional Comments: Patient placed on nasal cannula 15 L/min. Received simultaneous [id number] ventilation. Preoxygenated to 99/100%. Video laryngoscopy is performed, with a curved S3 video living scope blade, and a 7.5 endotracheal tube is gently inserted into the oropharynx, after rhea ropriate suctioning. The tube is placed through the trachea without difficulty, stylette is removed, entry level staff accountant balloon is inflated, and end-tidal capnography confirmatory device is attached to the endotracheal tube, and there is appropriate end-tidal capnography color change. Condensation is noted on the tube, and there are appropriate breath sounds appreciated bilaterally. The patient tolerated the procedure well, without obvious complication ED Medical Decision Making - Lab Data Result diagrams: 04/19/22 05:26 Lab Results 04/19/22 Range/Units 05:30 Urine Color Yellow (Yellow) Urine Turbidity Clear (Clear) Specific [place] (Man) 1.010 (1.003-1.030) Ur Protein (Man) 1+ (Negative) mg/dL Ur Ketones (Man) Negative (Negative) Ur Nitrite (Man) Negative (Negative) Urine Bilirubin (Man) Small (Negative) Urine Ictotest Negative (Negative) Leukocyte Esterase (Man) Trace (Negative) Urine WBC (Auto) 4.0 (0.0-6.0) /HPF Urine RBC (Auto) 1.0 (0.0-6.0) /HPF U Epithel Cells (Auto) < 1.0 (0-13.0) /HPF Urine Bacteria (Auto) 1+ (Negative) /HPF Urine RBC (Manual) Negative (Negative) Hyaline Casts 1 /LPF Granular Casts 10 /LPF Urine Mucus Few /HPF Urine Yeast (Budding) Few /HPF - EKG Data 04/19/22 05:40 The EKG is interpreted at 05: 17 Sinus tachycardia, rate 143 bpm. Normal axis, left ventricular hypertrophy, motion artifact, abnormal EKG, not a STEMI - Radiology Data Radiology results: report reviewed, [place] [address] XRay Report Signed Patient: DANY LOPEZ MR#: [id number] 6 : 1935 Acct:[id number] Age/Sex: 87 / F ADM Date: 04/19/22 Loc: ED Attending Dr: Ordering Physician: RADHA GARNER MD Date of Service: 04/19/22 Procedure(s): XR chest 1V ap Accession Number(s): [id number] cc: RADHA GARNER MD Fluoro Time In Minutes: CHEST 1 VIEW INDICATION / CLINICAL INFORMATION: E T TUBE PLACEMENT. COMPARISON: Chest x-ray 01/15/2022 FINDINGS: SUPPORT DEVICES: Endotracheal tube is in satisfactory position tip adjacent the aortic knob. HEART / MEDIASTINUM: Heart size is within normal limits. Mediastinal contour demonstrates no significant abnormality. LUNGS / PLEURA: Interval increase in opacities mid-lower left lung. Right lung demonstrates minimal discoid atelectasis lower lung. BONES: No significant osseous abnormality. ADDITIONAL FINDINGS: No significant additional findings. IMPRESSION: 1. Interval placement of endotracheal tube tip in satisfactory position. 2. Worsening opacities mid-lower left lung may in part reflect worsening atel ectasis. Minimal discoid atelectasis lower right lung. Right lung otherwise clear. Signer Name: Albert Hart II, MD Signed: 04/19/2022 5:42 AM Workstation Name: [id number] Transcribed By: PENELOPE Dictated By: ALBERT HART II, MD Electronically Authenticated By: ALBERT HART II, MD Signed Date/Time: 04/19/22541 DD/ 0 TD/TT: Critical Care Time: Yes Critical care time in (mins) excluding proc time.: 35 ED Disposition Clinical Impression: GIB (gastrointestinal bleeding), Hypernatremia, Hypokalemia, Hypokalemia due to excessive gastrointestinal loss of potassium, Hyperglycemia, Hypermagnesemia, NSTEMI (non-ST elevated myocardial infarction), Severe sepsis, Acute respiratory failure with hypoxia Disposition: 09 ADMITTED INPATIENT Is pt being admited?: Yes Does the pt Need Aspirin: No Condition: Critical <ALEJANDRA JAY - Last Filed: 04/19/22 07:51> ED Review of Systems ROS: Stated complaint: ROBERT Other details as noted in HPI ED Course Vital Signs 04/19/22 04/19/22 04/19/22 05:17 05:20 05:24 Temperature Pulse Rate 129 H 134 H Respiratory 28 H 28 H Rate Blood Pressure 116/56 O2 Sat by Pulse 99 78 L 73 L Oximetry 04/19/22 04/19/22 04/19/22 05:25 05:30 05:46 Temperature 102.6 F H Pulse Rate 137 H 136 H Respiratory 16 16 Rate Blood Pressure 130/50 O2 Sat by Pulse 82 L 98 Oximetry 04/19/22 04/19/22 04/19/22 06:00 06:16 06:30 Temperature Pulse Rate 121 H 115 H 121 H Respiratory 16 16 23 Rate Blood Pressure 121/53 106/51 131/59 O2 Sat by Pulse 100 100 90 Oximetry - Reevaluation(s) Reevaluation #1: 04/19/22 07:45 NA ELEVATED; SWITCHED TO 1/2 NS. FOBT +; WILL START TRANSFUSION. ALREADY ON PPI; SPOKE TO GI; DR. BARRETT WHO IS AWARE OF PATIENT. SPOKE TO HOSPITALIST AND WILL GO TO DR. WATTS (SP?). PATIENT REMAINS HEMODYNAMICALLY STABLE AND AFEBRILE. ED Medical Decision Making - Lab Data Result diagrams: 04/19/22 05:26 04/19/22 05:26 Critical care time in (mins) excluding proc time.: 40 Critical care attestation.: If time is entered above; I have spent that time in minutes in the direct care of this critically ill patient, excluding procedure time. ED Disposition Time of Disposition: 07:50
[2022-04-19 05:39] LABS: Color,Urine Yellow (Yellow)
[2022-04-19 05:43] LABS: Bacteria,Urine 1+ /HPF (Negative); Granular Casts,Urine 10 /LPF; Hyaline Casts,Urine 1 /LPF; Ictotest,Urine Negative (Negative); Mucus,Urine FEW /HPF
--- NOTE | 2022-04-19 05:46 | XRay Report ---
CHEST 1 VIEW INDICATION / CLINICAL INFORMATION: E T TUBE PLACEMENT. COMPARISON: Chest x-ray 01/15/2022 FINDINGS: SUPPORT DEVICES: Endotracheal tube is in satisfactory position tip adjacent the aortic knob. HEART / MEDIASTINUM: Heart size is within normal limits. Mediastinal contour demonstrates no signific ant abnormality. LUNGS / PLEURA: Interval increase in opacities mid-lower left lung. Right lung demonstrates minimal d iscoid atelectasis lower lung. BONES: No significant osseous abnormality. ADDITIONAL FINDINGS: No significant additional findings. IMPRESSION: 1. Interval placement of endotracheal tube tip in satisfactory position. 2. Worsening opacities mid-lower left lung may in part reflect worsening atelectasis. Minimal discoid atelectasis lower right lung. Right lung otherwise clear. Signer Name: Reece Suero II, MD Signed: 04/19/2022 5:42 AM Workstation Name: [id number]
[2022-04-19 05:48] LABS: Mean Corpuscular HGB Conc 28 % (30-34); Mean Corpuscular Volume 106 fl (79-97); Platelet Count 399 K/mm3 (140-440); Red Blood Count 1.39 M/mm3 (3.65-5.03)
[2022-04-19 05:53] LABS: Hemoglobin 4.1 gm/dl (10.1-14.3)
[2022-04-19 05:54] LABS: Hematocrit 14.8 % (30.3-42.9); Red Cell Distribution Width 30.4 % (13.2-15.2)
[2022-04-19] MEDS ORDERED: PANTOPRAZOLE 40 MG INJ IV ONE (05:54)
[2022-04-19] MEDS ORDERED: SODIUM CHLORIDE 0.9% 500 ML 500 ML IV ONE ×2 (05:54→06:26)
[2022-04-19 05:58] LABS: INR 1.08 (0.87-1.13)
[2022-04-19] MEDS ORDERED: VANCOMYCIN PHARMACY TO DOSE IV SCH ×2 (06:00→10:00)
[2022-04-19] MEDS ORDERED: fentaNYL DRIP Premix 1,000 MCG/100 ML BAG IV SCH (06:00)
[2022-04-19 06:04] LABS: Partial Thromboplastin Time < 20.0 Sec. (24.2-36.6)
[2022-04-19 06:13] LABS: ABG Base Excess 3.9 mmol/L (-2.0-3.0); ABG HCO3 28.3 mmol/L (20.0-26.0); ABG Methemoglobin 0.3 % (0.0-1.5); ABG PCO2 41.7 mm Hg; ABG PH 7.449 pH Units (7.350-7.450); ABG PO2 78.7 mm Hg (80.0-90.0)
[2022-04-19 06:14] LABS: Alanine Aminotransferase 23 units/L (7-56); Albumin 3.5 g/dL (3.9-5); BUN/Creatinine Ratio 47; Blood Urea Nitrogen 42 mg/dL (7-17); Calcium 9.3 mg/dL (8.4-10.2); Hemolysis Index 4
[2022-04-19 06:35] LABS: Anisocytosis 3+; Basophils % (Manual) 0 % (0.0-1.8); Dimorphic RBC Yes; Eosinophils % (Manual) 0 % (0.0-4.3); Platelet Estimate Consistent w Auto; Stomatocytes 2+; Total Cells Counted 100
[2022-04-19] MEDS ORDERED: SODIUM CHLORIDE 0.45% 1000 ML 1,000 ML IV SCH (07:00)
--- NOTE | 2022-04-19 08:11 | History and Physical Report ---
History of Present Illness Date of examination: 04/19/22 Date of admission: 04/19/22 Chief complaint: SHORTNESS OF BREATH, FEVER History of present illness: Patient is an 87 year-old female with past medical history of hypertension, CVA, diabetes, GERD, dementia of unknown baseline renal disease was brought to the emergency room because of shortness of breath and weakness was noted to be hypoxic. Per EMS last known time was unknown. She was also febrile with a t emperature of 103. She is currently resident of [facility] where she is being followed by Dr. Darryl Varela On arrival to the ER the patient was noted to have labored breathing with tach ycardia with no gag reflex feeling that the patient was septic and with impending respiratory failure she was intubated started on the sepsis protocol. We have been asked to admit the patient for further management. During her last hospitalization she was treated for pneumonia with associated sepsis at that time she was ruled out for COVID During my examination the patient was already intubated. There was significant crusting that is dark brownish discoloration fungal and also secretion from the ET tube. Patient was also noted to be severely anemic with a hemoglobin of 4.1 and with a sodium of 162. Patient was not responsive despite not being on any sedation. She was not requiring any pressors at this time. Initial attempt to reach the son was unsuccessful at this time. Past History Past Medical History: CAD, diabetes, hypertension, hyperlipidemia, stroke Past Surgical History: Other (FEEDING TUBE) Social history: full code, other (FCI) Family history: no significant family history Medications and Allergies Allergies Allergy/AdvReac Type Severity Reaction Status Date / Time No Known Allergies Allergy Verified 03/15/21 10:30 Home Medications Medication Instructions Recorded Confirmed Last Taken Type Ferrous Sulfate [Iron 325 MG] 325 mg PO DAILY 03/17/21 01/13/22 Unknown History Lovastatin [Altoprev] 40 mg PO DAILY 03/17/21 01/13/22 Unknown History allopurinoL [Zyloprim] 300 mg PO QDAY 03/17/21 01/13/22 Unknown History amLODIPine 10 mg PO DAILY 03/17/21 01/13/22 Unknown History Aspirin [Adult Aspirin] 81 mg PO DAILY #30 tablet. 03/22/21 01/13/22 Unknown Rx Linagliptin [Tradjenta] 5 mg PO QAMDIAB #30 tablet 03/22/21 01/13/22 Unknown Rx Insulin Glargine [Lantus VIAL] 10 units SUB-Q QHS #30 ml 11/04/21 01/13/22 Unknown Rx Lacosamide [Vimpat] 100 mg PO Q12HR #60 tablet 11/04/21 01/13/22 Unknown Rx Lansoprazole Solutab [Prevacid 30 mg FEEDTUBE QDAY #30 tab.rapdis 11/04/21 01/13/22 Unknown Rx Solutab] Sennosides/Docusate [Senokot S] 2 tab FEEDTUBE BID #30 tablet 11/04/21 01/13/22 Unknown Rx levETIRAcetam [Keppra] 1,000 mg FEEDTUBE BID #600 ml 11/04/21 01/13/22 Unknown Rx Ascorbic Acid [Vitamin C] 500 mg PO BID tablet 01/11/22 01/13/22 Unknown Rx Cholecalciferol Vit D3 [Vitamin D3 1,000 unit PO QDAY tablet 01/11/22 01/13/22 Unknown Rx 1,000 UNIT TAB] Dexamethasone [Decadron] 6 mg PO QDAY 5 Days #5 tab 01/11/22 01/13/22 Unknown Rx Metoprolol [Lopressor TAB] 25 mg PO Q8HR 30 Days #90 tablet 01/11/22 01/13/22 Unknown Rx Zinc Sulfate 220 mg PO BID capsule 01/11/22 01/13/22 Unknown Rx polyethylene glycoL 3350 [Miralax 17 gm PO QDAY powd.pack 01/11/22 01/13/22 Unknown Rx 3350] Acetaminophen [Acetaminophen TAB] 650 mg PO Q4H PRN tablet 01/19/22 Unknown Rx Lipase/Protease/Amylase [Pancreaze 1 each FEEDTUBE PRN PRN capsule 01/19/[address] 10,500 Unit] Magnesium Hydroxide [Milk of 30 ml PO Q4H PRN oral.liqd 01/19/22 Unknown Rx Magnesia] Sodium Bicarbonate 325 mg FEEDTUBE PRN PRN tablet 01/19/22 Unknown Rx Active Meds: Active Medications Hydrophilic Ointment (Lip Therapy Vaseline) 1 applic TP Q2HR PRN PRN Reason: Dry Lips Fentanyl Citrate (Fentanyl Drip Premix) 1,000 mcg in 100 mls @ 2.5 mls/hr IV TITR CONNIE; Protocol Pantoprazole Sodium 80 mg/ (Sodium Chloride) 100 mls @ 10 mls/hr IV DIRECT CONNIE Octreotide Acetate 500 mcg/ (Sodium Chloride) 101 mls @ 5.05 mls/hr IV TITR CONNIE; Protocol Multi-Ingred Cream/Lotion/Oil/Oint (Mineral Oil/Petrolatum, White Ophth Oint 3.5 Gm) 1 applic OU Q4HR PRN PRN Reason: Dry Eye(s) Senna/Docusate Sodium (Sennosides/Docusate Sodium 8.6/50 Mg Tab) 1 tab FEEDTUBE BID CONNIE Review of Systems ROS unobtainable: due to endotracheal tube, due to mental status Exam - Physical Exam Narrative exam: VITAL SIGNS: Reviewed. GENERAL: The patient appears chronically ill-appearing, unresponsive on mechanical ventilation vital signs as documented. HEAD: No signs of head trauma. EYES: Pupils are equal. EARS: Unable to exam MOUTH: Oropharynx is normal. NECK: No adenopathy, no JVD. CHEST: Chest with Diminshed breath sounds bilaterally. CARDIAC: Regular rate and rhythm. S1 and S2, without murmurs, gallops, or rubs. VASCULAR: No Edema. Peripheral pulses normal and equal in all extremities. ABDOMEN: Soft, non tender and non distended. No rebound or guarding, and no masses palpated. Bowel Sounds normal. MUSCULOSKELETAL: Bilateral lower extremities appear to be worsening deformities of the foot do not ambulate extremities without clubbing, cyanosis or edema. NEUROLOGIC EXAM: Unresponsive for respiratory support no focal sensory or strength deficits. PSYCHIATRIC: Unable to exam. SKIN: detail exam as documented in skin assessment - Constitutional Vitals: Temp Pulse Resp BP Pulse Ox 102.6 F H 112 H 16 118/55 96 04/19/22 05:25 04/19/22 08:00 04/19/22 08:00 04/19/22 08:00 04/19/22 08:00 HEART Score - HEART Score Troponin: Troponin T 0.086 ng/mL (0.00-0.029) H 04/19/22 05:26 Results - Labs CBC & Chem 7: 04/19/22 05:26 04/19/22 05:26 Labs: Laboratory Last Values WBC 19.6 K/mm3 (4.5-11.0) H 04/19/22 05:26 RBC 1.39 M/mm3 (3.65-5.03) L 04/19/22 05:26 Hgb 4.1 gm/dl (10.1-14.3) L* 04/19/22 05:26 Hct 14.8 % (30.3-42.9) L* 04/19/22 05:26 MCV 106 fl (79-97) H 04/19/22 05:26 MCH 29 pg (28-32) 04/19/22 05:26 MCHC 28 % (30-34) L 04/19/22 05:26 RDW 30.4 % (13.2-15.2) H 04/19/22 05:26 Plt Count 399 K/mm3 (140-440) 04/19/22 05:26 Add Manual Diff Complete 04/19/22 05:26 Total Counted 100 04/19/22 05:26 Seg Neutrophils % Sales Developer 04/19/22 05:26 Seg Neuts % (Manual) 86.0 % (40.0-70.0) H 04/19/22 05:26 Band Neutrophils % 0 % 04/19/22 05:26 Lymphocytes % (Manual) 10.0 % (13.4-35.0) L 04/19/22 05:26 Reactive Lymphs % (Man) 0 % 04/19/22 05:26 Monocytes % (Manual) 4.0 % (0.0-7.3) 04/19/22 05:26 Eosinophils % (Manual) 0 % (0.0-4.3) 04/19/22 05:26 Basophils % (Manual) 0 % (0.0-1.8) 04/19/22 05:26 Metamyelocytes % 0 % 04/19/22 05:26 Myelocytes % 0 % 04/19/22 05:26 Promyelocytes % 0 % 04/19/22 05:26 Blast Cells % 0 % 04/19/22 05:26 Nucleated RBC % 2.0 % (0.0-0.9) H 04/19/22 05:26 Seg Neutrophils # Man 16.9 K/mm3 (1.8-7.7) H 04/19/22 05:26 Band Neutrophils # 0.0 K/mm3 04/19/22 05:26 Lymphocytes # (Manual) 2.0 K/mm3 (1.2-5.4) 04/19/22 05:26 Abs React Lymphs (Man) 0.0 K/mm3 04/19/22 05:26 Monocytes # (Manual) 0.8 K/mm3 (0.0-0.8) 04/19/22 05:26 Eosinophils # (Manual) 0.0 K/mm3 (0.0-0.4) 04/19/22 05:26 Basophils # (Manual) 0.0 K/mm3 (0.0-0.1) 04/19/22 05:26 Metamyelocytes # 0.0 K/mm3 04/19/22 05:26 Myelocytes # 0.0 K/mm3 04/19/22 05:26 Promyelocytes # 0.0 K/mm3 04/19/22 05:26 Blast Cells # 0.0 K/mm3 04/19/22 05:26 WBC Morphology Not Reportable 04/19/22 05:26 Hypersegmented Neuts Not Reportable 04/19/22 05:26 Hyposegmented Neuts Not Reportable 04/19/22 05:26 Hypogranular Neuts Not Reportable 04/19/22 05:26 Smudge Cells Not Reportable 04/19/22 05:26 Toxic Granulation Not Reportable 04/19/22 05:26 Toxic Vacuolation Not Reportable 04/19/22 05:26 Dohle Bodies Not Reportable 04/19/22 05:26 Pelger-Huet Anomaly Not Reportable 04/19/22 05:26 Marina Rods Not Reportable 04/19/22 05:26 Platelet Estimate Consistent w auto 04/19/22 05:26 Clumped Platelets Not Reportable 04/19/22 05:26 Plt Clumps, EDTA Not Reportable 04/19/22 05:26 Large Platelets Not Reportable 04/19/22 05:26 Giant Platelets Not Reportable 04/19/22 05:26 Platelet Satelliting Not Reportable 04/19/22 05:26 Plt Morphology Comment Not Reportable 04/19/22 05:26 RBC Morphology Not Reportable 04/19/22 05:26 Dimorphic RBCs Yes 04/19/22 05:26 Polychromasia Not Reportable 04/19/22 05:26 Hypochromasia Not Reportable 04/19/22 05:26 Poikilocytosis Not Reportable 04/19/22 05:26 Anisocytosis 3+ 04/19/22 05:26 Microcytosis Not Reportable 04/19/22 05:26 Macrocytosis Not Reportable 04/19/22 05:26 Spherocytes Not Reportable 04/19/22 05:26 Pappenheimer Bodies Not Reportable 04/19/22 05:26 Sickle Cells Not Reportable 04/19/22 05:26 Target Cells Not Reportable 04/19/22 05:26 Tear Drop Cells Not Reportable 04/19/22 05:26 Ovalocytes Not Reportable 04/19/22 05:26 Stomatocytes 2+ 04/19/22 05:26 Helmet Cells Not Reportable 04/19/22 05:26 [place] Bodies Not Reportable 04/19/22 05:26 [place] Rings Not Reportable 04/19/22 05:26 [place] Cells Not Reportable 04/19/22 05:26 Bite Cells Not Reportable 04/19/22 05:26 Crenated Cell Not Reportable 04/19/22 05:26 Elliptocytes Not Reportable 04/19/22 05:26 Acanthocytes (Spur) Not Reportable 04/19/22 05:26 Rouleaux Not Reportable 04/19/22 05:26 Hemoglobin C Crystals Not Reportable 04/19/22 05:26 Schistocytes Not Reportable 04/19/22 05:26 Malaria parasites Not Reportable 04/19/22 05:26 Kevin Bodies Not Reportable 04/19/22 05:26 Hem Pathologist Commnt No 04/19/22 05:26 PT 15.5 Sec. (12.2-14.9) H 04/19/22 05:26 INR 1.08 (0.87-1.13) 04/19/22 05:26 APTT < 20.0 Sec. (24.2-36.6) L 04/19/22 05:26 ABG pH 7.449 pH Units (7.350-7.450) 04/19/22 06:05 ABG pCO2 41.7 mm Hg 04/19/22 06:05 ABG pO2 78.7 mm Hg (80.0-90.0) L 04/19/22 06:05 ABG HCO3 28.3 mmol/L (20.0-26.0) H 04/19/22 06:05 ABG O2 Saturation 97.0 % (95.0-99.0) 04/19/22 06:05 ABG O2 Content 4.3 (0.0-44) 04/19/22 06:05 ABG Base Excess 3.9 mmol/L (-2.0-3.0) H 04/19/22 06:05 ABG Hemoglobin < 12.0 gm/dl (12.0-16.0) L 04/19/22 06:05 ABG Carboxyhemoglobin 2.0 % (0.0-5.0) 04/19/22 06:05 ABG Methemoglobin 0.3 % (0.0-1.5) 04/19/22 06:05 Oxyhemoglobin 94.7 % (95.0-99.0) L 04/19/22 06:05 FiO2 100 % 04/19/22 06:05 Sodium 162 mmol/L (137-145) H* 04/19/22 05:26 Potassium 3.2 mmol/L (3.6-5.0) L 04/19/22 05:26 Chloride 114.6 mmol/L (98-107) H 04/19/22 05:26 Carbon Dioxide 28 mmol/L (22-30) 04/19/22 05:26 Anion Gap 23 mmol/L 04/19/22 05:26 BUN 42 mg/dL (7-17) H 04/19/22 05:26 Creatinine 0.9 mg/dL (0.6-1.2) 04/19/22 05:26 Estimated GFR > 60 ml/min 04/19/22 05:26 BUN/Creatinine Ratio 47 % 04/19/22 05:26 Glucose 295 mg/dL (65-100) H 04/19/22 05:26 Lactic Acid 8.60 mmol/L (0.7-2.0) H* 04/19/22 05:26 Calcium 9.3 mg/dL (8.4-10.2) 04/19/22 05:26 Magnesium 2.60 mg/dL (1.7-2.3) H 04/19/22 05:26 Ferritin 142.5 ng/mL (10.0-200.0) 04/19/22 05:26 Total Bilirubin 0.20 mg/dL (0.1-1.2) 04/19/22 05:26 AST 37 units/L (5-40) 04/19/22 05:26 ALT 23 units/L (7-56) 04/19/22 05:26 Alkaline Phosphatase 85 units/L (35-129) 04/19/22 05:26 Total Creatine Kinase 63 units/L (30-135) 04/19/22 05:26 Troponin T 0.086 ng/mL (0.00-0.029) H 04/19/22 05:26 Total Protein 6.1 g/dL (6.3-8.2) L 04/19/22 05:26 Albumin 3.5 g/dL (3.9-5) L 04/19/22 05:26 Albumin/Globulin Ratio 1.3 % 04/19/22 05:26 Vitamin B12 726.7 pg/mL (211-911) 04/19/22 05:26 TSH 4.550 mlU/mL (0.270-4.200) H 04/19/22 05:26 Urine Color Yellow (Yellow) 04/19/22 05:30 Urine Turbidity Clear (Clear) 04/19/22 05:30 Specific [place] (Man) 1.010 (1.003-1.030) 04/19/22 05:30 Ur Protein (Man) 1+ mg/dL (Negative) 04/19/22 05:30 Ur Ketones (Man) Negative (Negative) 04/19/22 05:30 Ur Nitrite (Man) Negative (Negative) 04/19/22 05:30 Urine Bilirubin (Man) Small (Negative) 04/19/22 05:30 Urine Ictotest Negative (Negative) 04/19/22 05:30 Leukocyte Esterase (Man) Trace (Negative) 04/19/22 05:30 Urine WBC (Auto) 4.0 /HPF (0.0-6.0) 04/19/22 05:30 Urine RBC (Auto) 1.0 /HPF (0.0-6.0) 04/19/22 05:30 U Epithel Cells (Auto) < 1.0 /HPF (0-13.0) 04/19/22 05:30 Urine Bacteria (Auto) 1+ /HPF (Negative) 04/19/22 05:30 Urine RBC (Manual) Negative (Negative) 04/19/22 05:30 Hyaline Casts 1 /LPF 04/19/22 05:30 Granular Casts 10 /LPF 04/19/22 05:30 Urine Mucus Few /HPF 04/19/22 05:30 Urine Yeast (Budding) Few /HPF 04/19/22 05:30 Blood Type B POSITIVE 04/19/22 06:00 Antibody Screen Negative 04/19/22 06:00 Crossmatch See Detail 04/19/22 06:00 Microbiology: Microbiology 04/19/22 05:25 Peripheral/Venous Blood Culture - Preliminary Culture in Progress 04/19/22 05:26 Peripheral/Venous Blood Culture - Preliminary Culture in Progress 04/19/22 Unknown Stool - Stool Aspirate Stool Occult Blood (DARREN) - Final Assessment and Plan Assessment and plan: Patient is an 87 year-old female with past medical history of hypertension, CVA, diabetes, GERD, dementia of unknown baseline renal disease was brought to the emergency room because of shortness of breath and weakness was noted to be hypoxic. Per EMS last known time was unknown. She was also febrile with a temperature of 103. She is currently resident of [facility] where she is being followed by Dr. Darryl Varela On arrival to the ER the patient was noted to have labored breathing with tachycardia with no gag reflex feeling that the patient was septic and with impending respiratory failure she was intubated started on the sepsis protocol. We have been asked to admit the patient for further management. During her last hospitalization she was treated for pneumonia with associated sepsis at that time she was ruled out for COVID During my examination the patient was already intubated. There was significant crusting that is dark brownish discoloration fungal and also secretion from the ET tube. ED examination revealed dark stool and packed red blood cell was ordered Patient was also noted to be severely anemic with a hemoglobin of 4.1 and with a sodium of 162. Patient was not responsive despite not being on any sedation. She was not requiring any pressors at this time. Initial attempt to reach the son was unsuccessful at this time. Chest IMPRESSION: 1. Interval placement of endotracheal tube tip in satisfactory position. 2. Worsening opacities mid-lower left lung may in part reflect worsening atelectasis. Minimal discoid atelectasis lower right lung. Right lung otherwise clear. Acute hypoxic respiratory failure Sepsis present on admission Severe anemia with possible gastrointestinal bleed Severe hyponatremia Hypokalemia Hyperglycemia Hypomagnesemia Non-ST elevated NC could be demand ischemia Baseline dementia long term resident Diabetes mellitus type 2 History of CVA Known history of seizure disorder Plan Admit to ICU Start Abx, Obtain blood culture ID and cardiology consult Thread Tool Grinder Set Up Operator and director of rehabilitation has already been consulted At this time unable to start the patient on any anticoagulation or antiplatelet platelets due to severe anemia Blood transfusion, PPI drip and octreotide drip Vent management per curriculum coordinator Replace electrolytes Monitor sodium level next We will attempt to reach the son again. Hold home medications at this time. Antiseizure medication with Keppra IV. DVT and GI prophylaxis Prognosis is guarded The high probability of a clinically significant, sudden or life threatening deterioration of the [multiple organ] system(s) required my full and direct attention, intervention and personal management. The aggregate critical care time was [19] minutes. This time is in addition to time spent performing reported procedures but includes the following: [x] Data Review and interpretation [x] Patient assessment and monitoring of vital signs [x] Documentation [x] Medication orders and management Advance Directives: Yes Plan of care discussed with patient/family: Yes
[2022-04-19] MEDS ORDERED: DEXTROSE 50% IN WATER (25GM) 50 ML SYRINGE IV PRN (08:30)
[2022-04-19 08:32] LABS: Iron 43 ug/dL (37-170)
[2022-04-19] MEDS ORDERED: NALOXONE 0.4 MG/1 ML INJ IV PRN (09:00)
[2022-04-19] MEDS ORDERED: SODIUM CHLORIDE 0.9% 1000 ML 1,000 ML IV SCH (09:00)
[2022-04-19] MEDS ORDERED: ACETAMINOPHEN 650 MG RECT SUPP PR PRN (09:00)
[2022-04-19] MEDS ORDERED: CEFEPIME/NS 1 GM/100 ML 1 GM/100 ML BAG IV SCH (09:00)
[2022-04-19] MEDS ORDERED: ALBUTEROL 2.5 MG/3 ML NEBU IH PRN (09:00)
[2022-04-19] MEDS ORDERED: MORPHINE 2 MG/1 ML INJ IV PRN (09:00)
[2022-04-19 09:06] LABS: Total Iron Binding Capacity 252 mcg/dL (250-450)
--- NOTE | 2022-04-19 09:48 | Consultation ---
History of Present Illness Consult date: 04/19/22 Requesting physician: RO WATTS History of present illness: Patient is an 87 year-old female with past medical history of hypertension, CVA, diabetes, GERD, dementia of unknown baseline renal disease was brought to the emergency room because of shortness of breath and weakness was noted to be hypoxic. Per EMS last known time was unknown. She was also febrile with a temperature of 103. She is currently resident of [facility] where she is being followed by Dr. Darryl Varela On arrival to the ER the patient was noted to have labored breathing with tachycardia with no gag reflex feeling that the patient was septic and with impending respiratory failure she was intubated started on the sepsis protocol. We have been asked to admit the patient for further management. During her last hospitalization she was treated for pneumonia with associated sepsis at that time she was ruled out for COVID A critical care consult was placed Patient was seen in the ED. Vitals, labs, medications, chart and imaging reviewed. She is unresponsive, orally intubated.On suctioning, thick copious mucoid secretions from the ETT Patient was also noted to be severely anemic with a hemoglobin of 4.1 and with a sodium of 162. Per ED physician GI has been consulted. She is currently getting 1 unit PRBC transfusions ACPRVC 400/16/35%/+6 Medications and Allergies Allergies Allergy/AdvReac Type Severity Reaction Status Date / Time No Known Allergies Allergy Verified 03/15/21 10:30 Home Medications Medication Instructions Recorded Confirmed Last Taken Type Ferrous Sulfate [Iron 325 MG] 325 mg PO DAILY 03/17/21 04/19/22 Unknown History Lovastatin [Altoprev] 40 mg PO DAILY 03/17/21 04/19/22 Unknown History allopurinoL [Zyloprim] 300 mg PO QDAY 03/17/21 04/19/22 Unknown History amLODIPine 10 mg PO DAILY 03/17/21 04/19/22 Unknown History Aspirin [Adult Aspirin] 81 mg PO DAILY #30 tablet. 03/22/21 04/19/22 Unknown Rx Linagliptin [Tradjenta] 5 mg PO QAMDIAB #30 tablet 03/22/21 04/19/22 Unknown Rx Insulin Glargine [Lantus VIAL] 10 units SUB-Q QHS #30 ml 11/04/21 04/19/22 Unknown Rx Lacosamide [Vimpat] 100 mg PO Q12HR #60 tablet 11/04/21 04/19/22 Unknown Rx Sennosides/Docusate [Senokot S] 2 tab FEEDTUBE BID #30 tablet 11/04/21 04/19/22 Unknown Rx levETIRAcetam [Keppra] 1,000 mg FEEDTUBE BID #600 ml 11/04/21 04/19/22 Unknown Rx Cholecalciferol Vit D3 [Vitamin D3 1,000 unit PO QDAY tablet 01/11/22 04/19/22 Unknown Rx 1,000 UNIT TAB] Metoprolol [Lopressor TAB] 25 mg PO Q8HR 30 Days #90 tablet 01/11/22 04/19/22 Unknown Rx Acetaminophen [Acetaminophen TAB] 650 mg PO Q4H PRN tablet 01/19/22 04/19/22 Unknown Rx Famotidine [Zantac-360 20 mg PO QDAY 04/19/22 04/19/22 Unknown History (Famotidine)] Insulin Lispro [Admelog] See Protocol SQ ACHS 04/19/22 04/19/22 Unknown History Magnesium Hydroxide [Milk of 400 mg PO QDAY PRN 04/19/22 04/19/22 Unknown History Magnesia] traMADoL [Ultram] 50 mg PO Q6HR PRN 04/19/22 04/19/22 Unknown History Active Meds: Active Medications Acetaminophen (Acetaminophen 650 Mg Rect Supp) 650 mg SD Q6H PRN PRN Reason: Pain MILD(1-3)/Fever >100.5/FERRARI Albuterol (Albuterol 2.5 Mg/3 Ml Nebu) 2.5 mg IH Q3HRT PRN PRN Reason: Shortness Of Breath Albuterol/Ipratropium (Ipratropium/Albuterol Sulfate 3 Ml Ampul.Neb) 1 ampul IH Q6HRT CONNIE Dextrose (Dextrose 50% In Water (25gm) 50 Ml Syringe) 50 ml IV Q30MIN PRN; Protocol PRN Reason: Hypoglycemia Hydrophilic Ointment (Lip Therapy Vaseline) 1 applic TP Q2HR PRN PRN Reason: Dry Lips Fentanyl Citrate (Fentanyl Drip Premix) 1,000 mcg in 100 mls @ 2.5 mls/hr IV TITR CONNIE; Protocol Pantoprazole Sodium 80 mg/ (Sodium Chloride) 100 mls @ 10 mls/hr IV DIRECT CONNIE Octreotide Acetate 500 mcg/ (Sodium Chloride) 101 mls @ 5.05 mls/hr IV TITR CONNIE; Protocol Sodium Chloride (Nacl 0.9% 1000 Ml) 1,000 mls @ 125 mls/hr IV DIRECT CONNIE Cefepime HCl (Cefepime/Ns 2 Gm/100 Ml) 2 gm in 100 mls @ 200 mls/hr IV Q12H CONNIE Insulin Human Lispro (Insulin Lispro 100 Unit/Ml) 0 unit SUB-Q Q6HR CONNIE; Protocol Morphine Sulfate (Morphine 2 Mg/1 Ml Inj) 2 mg IV Q4H PRN PRN Reason: Pain, Moderate (4-6) Multi-Ingred Cream/Lotion/Oil/Oint (Mineral Oil/Petrolatum, White Ophth Oint 3.5 Gm) 1 applic OU Q4HR PRN PRN Reason: Dry Eye(s) Naloxone HCl (Naloxone 0.4 Mg/1 Ml Inj) 0.1 mg IV Q2MIN PRN PRN Reason: Res Rate </= 8 or 02 SAT < 92% Senna (Sennosides 8.6 Mg Tab) 8.6 mg PO BID CONNIE Senna/Docusate Sodium (Sennosides/Docusate Sodium 8.6/50 Mg Tab) 1 tab FEEDTUBE BID CONNIE Sodium Chloride (Sodium Chloride 0.9% 10 Ml Flush Syringe) 10 ml IV BID CONNIE Sodium Chloride (Sodium Chloride 0.9% 10 Ml Flush Syringe) 10 ml IV PRN PRN PRN Reason: LINE FLUSH Review of Systems ROS unobtainable: due to endotracheal tube, due to mental status Physical Examination Vital signs: Vital Signs Pulse BP Pulse Ox 129 H 116/56 99 04/19/22 05:17 04/19/22 05:17 04/19/22 05:17 General appearance: no acute distress, other (orally intuabted, unresponsive) Eyes: non-icteric ENT: oropharynx dry Neck: supple, no lymphadenopathy, no JVD Effort: normal Ascultation: Bilateral: clear, diminished breath sounds Cardiovascular: regular rate and rhythm, other (S1,S2) Gastrointestinal: normoactive bowel sounds, soft, non-tender Extremities: no cyanosis, no edema, pulses normal, other (left upper extremity, wrist contracture) unable to assess Results - Laboratory Findings CBC and BMP: 04/20/22 04:51 04/20/22 13:57 ABG ABG pH 7.449 pH Units (7.350-7.450) 04/19/22 06:05 ABG pCO2 41.7 mm Hg 04/19/22 06:05 ABG pO2 78.7 mm Hg (80.0-90.0) L 04/19/22 06:05 ABG O2 Saturation 97.0 % (95.0-99.0) 04/19/22 06:05 PT/INR, D-dimer PT 15.5 Sec. (12.2-14.9) H 04/19/22 05:26 INR 1.08 (0.87-1.13) 04/19/22 05:26 Abnormal lab findings: Abnormal Labs 04/19/22 04/19/22 04/19/22 05:26 05:26 05:26 WBC 19.6 H RBC 1.39 L Hgb 4.1 L* Hct 14.8 L* MCV 106 H MCHC 28 L RDW 30.4 H Seg Neuts % (Manual) 86.0 H Lymphocytes % (Manual) 10.0 L Nucleated RBC % 2.0 H Seg Neutrophils # Man 16.9 H PT 15.5 H APTT < 20.0 L ABG pO2 ABG HCO3 ABG Base Excess ABG Hemoglobin Oxyhemoglobin Sodium 162 H* Potassium 3.2 L Chloride 114.6 H BUN 42 H Glucose 295 H Lactic Acid Magnesium Troponin T 0.086 H Total Protein 6.1 L Albumin 3.5 L TSH Crossmatch 04/19/22 04/19/22 04/19/22 05:26 05:26 05:26 WBC RBC Hgb Hct MCV MCHC RDW Seg Neuts % (Manual) Lymphocytes % (Manual) Nucleated RBC % Seg Neutrophils # Man PT APTT ABG pO2 ABG HCO3 ABG Base Excess ABG Hemoglobin Oxyhemoglobin Sodium Potassium Chloride BUN Glucose Lactic Acid 8.60 H* Magnesium 2.60 H Troponin T Total Protein Albumin TSH 4.550 H Crossmatch 04/19/22 04/19/22 06:00 06:05 WBC RBC Hgb Hct MCV MCHC RDW Seg Neuts % (Manual) Lymphocytes % (Manual) Nucleated RBC % Seg Neutrophils # Man PT APTT ABG pO2 78.7 L ABG HCO3 28.3 H ABG Base Excess 3.9 H ABG Hemoglobin < 12.0 L Oxyhemoglobin 94.7 L Sodium Potassium Chloride BUN Glucose Lactic Acid Magnesium Troponin T Total Protein Albumin TSH Crossmatch See Detail - Diagnostic Findings Chest x-ray: image reviewed (Left lung infiltrate) Assessment and Plan Acute hypoxemic resp failure on MVS Sepsis present on admission Severe anemia with possible gastrointestinal bleed Severe hypernatremia Hypokalemia Hyperglycemia Hypomagnesemia Non-ST elevated PR could be demand ischemia Baseline dementia care home resident Diabetes mellitus type 2 History of CVA Known history of seizure disorder VAP bundle addressed, aspiration precautions HOB >40 Titrate supplemental oxygen to keep SpO2 89-92% Daily assessment for readiness to wean. Daily SAT and SBT Bronchodilators as indicated Continue empiric antibiotics, de-escalate based on culture data and clinical response. Trend temperature curve and WCC (Cefepime and Vancomycin) Accucheck with glycemic control. Target blood glucose 140-180mg/dL while critically ill. Avoid hypoglycemia CXR,ABG as clinically indicated VTE prophylaxis- SCDs for now, she has severe anemia Stress ulcer prophylaxis- therapeutic PPI Enteric support- hold off until evaluated by GI service Free water deficit- replace with [id number], hypotonic solutions Serial BMP, with goal to correct sodium by 8-10 mEq in 12 hours. Replete electrolytes- potassium and magnesium as clinically indicated Mobility, off loading per facility protocol to prevent pressure ulcers Avoid benzodiazepines, limit delirium Maintain sleep-wake cycle Supportive transfusions as clinically indicated to keep HgB >7g/dL Chronic home medications as clinically indicated CONDITION- CRITICAL PROGNOSIS- GUARDED CODE STATUS-FULL CODE Goals of care discussion by primary service. The high probability of a clinically significant, sudden or life threatening deterioration of the [multiple] system(s) required my full and direct attention, intervention and personal management. The aggregate critical care time was [75] minutes. This time is in addition to time spent performing reported procedures but includes the following: [x] Data Review and interpretation [x] Patient assessment and monitoring of vital signs [x] Documentation [x] Medication orders and management
[2022-04-19] MEDS ORDERED: SENNOSIDES 8.6 MG TAB PO SCH (10:00)
[2022-04-19] MEDS ORDERED: FAMOTIDINE 20 MG/2 ML INJ IV SCH ×2 (10:00)
[2022-04-19] MEDS ORDERED: ETOMIDATE 20 MG/10 ML INJ IV ONE (10:28)
[2022-04-19] MEDS ORDERED: ROCURONIUM 50 MG/5 ML INJ IV ONE (10:28)
[2022-04-19] MEDS: IPRATROPIUM/ALBUTEROL SULFATE 3 ML AMPUL.NEB IH SCH ×3 (10:58→19:57)
--- NOTE | 2022-04-19 11:08 | Consultation ---
History of Present Illness - Reason for Consult Consult date: 04/19/22 sepsis Requesting physician: RO WATTS - History of Present Illness The patient is an 87-year-old female with seizure disorder, prior CVA, hypertension, dementia, [facility] resident known to us from her previous hospitalizations, had COVID-19 pneumonia in January 2022, then readmitted with possible aspiration pneumonia, treated with antibiotics was brought from the [facility] with hypoxia, weakness. Upon evaluation in the ER, febrile, tachycardic, subsequently intubated. Found to have leukocytosis, severe anemia concerning for GI bleed. UA without any pyuria, lactate 8.6. Chest x-ray showed left-sided pneumonia versus atelectasis. On the vent, opening eyes, limited history, d/w RN. No significant skin wounds. Review of Systems: Limited due to vent Medications and Allergies Allergies Allergy/AdvReac Type Severity Reaction Status Date / Time No Known Allergies Allergy Verified 03/15/21 10:30 Home Medications Medication Instructions Recorded Confirmed Last Taken Type Ferrous Sulfate [Iron 325 MG] 325 mg PO DAILY 03/17/21 01/13/22 Unknown History Lovastatin [Altoprev] 40 mg PO DAILY 03/17/21 01/13/22 Unknown History allopurinoL [Zyloprim] 300 mg PO QDAY 03/17/21 01/13/22 Unknown History amLODIPine 10 mg PO DAILY 03/17/21 01/13/22 Unknown History Aspirin [Adult Aspirin] 81 mg PO DAILY #30 tablet. 03/22/21 01/13/22 Unknown Rx Linagliptin [Tradjenta] 5 mg PO QAMDIAB #30 tablet 03/22/21 01/13/22 Unknown Rx Insulin Glargine [Lantus VIAL] 10 units SUB-Q QHS #30 ml 11/04/21 01/13/22 Unknown Rx Lacosamide [Vimpat] 100 mg PO Q12HR #60 tablet 11/04/21 01/13/22 Unknown Rx Lansoprazole Solutab [Prevacid 30 mg FEEDTUBE QDAY #30 tab.rapdis 11/04/21 01/13/22 Unknown Rx Solutab] Sennosides/Docusate [Senokot S] 2 tab FEEDTUBE BID #30 tablet 11/04/21 01/13/22 Unknown Rx levETIRAcetam [Keppra] 1,000 mg FEEDTUBE BID #600 ml 11/04/21 01/13/22 Unknown Rx Ascorbic Acid [Vitamin C] 500 mg PO BID tablet 01/11/22 01/13/22 Unknown Rx Cholecalciferol Vit D3 [Vitamin D3 1,000 unit PO QDAY tablet 01/11/22 01/13/22 Unknown Rx 1,000 UNIT TAB] Dexamethasone [Decadron] 6 mg PO QDAY 5 Days #5 tab 01/11/22 01/13/22 Unknown Rx Metoprolol [Lopressor TAB] 25 mg PO Q8HR 30 Days #90 tablet 01/11/22 01/13/22 Unknown Rx Zinc Sulfate 220 mg PO BID capsule 01/11/22 01/13/22 Unknown Rx polyethylene glycoL 3350 [Miralax 17 gm PO QDAY powd.pack 01/11/22 01/13/22 Unknown Rx 3350] Acetaminophen [Acetaminophen TAB] 650 mg PO Q4H PRN tablet 01/19/22 Unknown Rx Lipase/Protease/Amylase [Pancreaze 1 each FEEDTUBE PRN PRN capsule 01/19/[address],500 Unit] Magnesium Hydroxide [Milk of 30 ml PO Q4H PRN oral.liqd 01/19/22 Unknown Rx Magnesia] Sodium Bicarbonate 325 mg FEEDTUBE PRN PRN tablet 01/19/22 Unknown Rx Active Meds: Active Medications Acetaminophen (Acetaminophen 650 Mg Rect Supp) 650 mg MA Q6H PRN PRN Reason: Pain MILD(1-3)/Fever >100.5/FERRARI Albuterol (Albuterol 2.5 Mg/3 Ml Nebu) 2.5 mg IH Q3HRT PRN PRN Reason: Shortness Of Breath Albuterol/Ipratropium (Ipratropium/Albuterol Sulfate 3 Ml Ampul.Neb) 1 ampul IH Q6HRT CONNIE Last Admin: 04/19/22 10:58 Dose: Not Given Dextrose (Dextrose 50% In Water (25gm) 50 Ml Syringe) 50 ml IV Q30MIN PRN; Protocol PRN Reason: Hypoglycemia Hydrophilic Ointment (Lip Therapy Vaseline) 1 applic TP Q2HR PRN PRN Reason: Dry Lips Fentanyl Citrate (Fentanyl Drip Premix) 1,000 mcg in 100 mls @ 2.5 mls/hr IV TITR CONNIE; Protocol Pantoprazole Sodium 80 mg/ (Sodium Chloride) 100 mls @ 10 mls/hr IV DIRECT CONNIE Octreotide Acetate 500 mcg/ (Sodium Chloride) 101 mls @ 5.05 mls/hr IV TITR CONNIE ; Protocol Sodium Chloride (Nacl 0.9% 1000 Ml) 1,000 mls @ 125 mls/hr IV DIRECT CONNIE Cefepime HCl (Cefepime/Ns 2 Gm/100 Ml) 2 gm in 100 mls @ 200 mls/hr IV Q12H CONNIE Vancomycin HCl 1,250 mg/ (Sodium Chloride) 275 mls @ 166.667 mls/hr IV Q24H CONNIE Insulin Human Lispro (Insulin Lispro 100 Unit/Ml) 0 unit SUB-Q Q6HR CONNIE; Protocol Morphine Sulfate (Morphine 2 Mg/1 Ml Inj) 2 mg IV Q4H PRN PRN Reason: Pain, Moderate (4-6) Multi-Ingred Cream/Lotion/Oil/Oint (Mineral Oil/Petrolatum, White Ophth Oint 3.5 Gm) 1 applic OU Q4HR PRN PRN Reason: Dry Eye(s) Naloxone HCl (Naloxone 0.4 Mg/1 Ml Inj) 0.1 mg IV Q2MIN PRN PRN Reason: Res Rate </= 8 or 02 SAT < 92% Senna/Docusate Sodium (Sennosides/Docusate Sodium 8.6/50 Mg Tab) 1 tab FEEDTUBE BID CONNIE Sodium Chloride (Sodium Chloride 0.9% 10 Ml Flush Syringe) 10 ml IV BID CONNIE Sodium Chloride (Sodium Chloride 0.9% 10 Ml Flush Syringe) 10 ml IV PRN PRN PRN Reason: LINE FLUSH Physical Examination - Physical Exam Narrative exam: Physical Exam: Constitutional: intubated, on the vent Head, Ears, Nose: Normocephalic, atraumatic. External ears, nose normal Eyes: Conjunctivae/corneas clear. No icterus. No ptosis. Neck: intubated Oral: intubated Cardiovascular: S1, S2 + Respiratory: AE fair bilaterally and equal GI: Soft, bowel sounds + Musculoskeletal: No pedal edema, no cyanosis. Contractures, foot drop bilaterally Skin: No rash or abscess Hem/Lymphatic: No palpable cervical or supraclavicular nodes. No lymphangitis Psych: no agitation Neurological: eyes open, intubated, on the vent, exam limited - Constitutional Vitals: Vital Signs Temp Pulse Resp BP Pulse Ox 100.8 F H 107 H 16 114/63 97 04/19/22 07:45 04/19/22 10:00 04/19/22 10:00 04/19/22 10:00 04/19/22 10:00 Temperature -Last 24 Hours Temperature 100.8 F Temperature 101.9 F Temperature 100.1 F Temperature 102.6 F Results - Labs CBC & Chem 7: 04/19/22 05:26 04/19/22 05:26 Labs: Abnormal lab results 04/19/22 04/19/22 04/19/22 Range/Units 05:26 05:26 05:26 WBC 19.6 H (4.5-11.0) K/mm3 RBC 1.39 L (3.65-5.03) M/mm3 Hgb 4.1 L* (10.1-14.3) gm/dl Hct 14.8 L* (30.3-42.9) % MCV 106 H (79-97) fl MCHC 28 L (30-34) % RDW 30.4 H (13.2-15.2) % Seg Neuts % (Manual) 86.0 H (40.0-70.0) % Lymphocytes % (Manual) 10.0 L (13.4-35.0) % Nucleated RBC % 2.0 H (0.0-0.9) % Seg Neutrophils # Man 16.9 H (1.8-7.7) K/mm3 PT 15.5 H (12.2-14.9) Sec. APTT < 20.0 L (24.2-36.6) Sec. ABG pO2 (80.0-90.0) mm Hg ABG HCO3 (20.0-26.0) mmol/L ABG Base Excess (-2.0-3.0) mmol/L ABG Hemoglobin (12.0-16.0) gm/dl Oxyhemoglobin (95.0-99.0) % Sodium 162 H* (137-145) mmol/L Potassium 3.2 L (3.6-5.0) mmol/L Chloride 114.6 H (98-107) mmol/L BUN 42 H (7-17) mg/dL Glucose 295 H (65-100) mg/dL Lactic Acid (0.7-2.0) mmol/L Magnesium (1.7-2.3) mg/dL Troponin T 0.086 H (0.00-0.029) ng/mL Total Protein 6.1 L (6.3-8.2) g/dL Albumin 3.5 L (3.9-5) g/dL TSH (0.270-4.200) mlU/mL Crossmatch 04/19/22 04/19/22 04/19/22 Range/Units 05:26 05:26 05:26 WBC (4.5-11.0) K/mm3 RBC (3.65-5.03) M/mm3 Hgb (10.1-14.3) gm/dl Hct (30.3-42.9) % MCV (79-97) fl MCHC (30-34) % RDW (13.2-15.2) % Seg Neuts % (Manual) (40.0-70.0) % Lymphocytes % (Manual) (13.4-35.0) % Nucleated RBC % (0.0-0.9) % Seg Neutrophils # Man (1.8-7.7) K/mm3 PT (12.2-14.9) Sec. APTT (24.2-36.6) Sec. ABG pO2 (80.0-90.0) mm Hg ABG HCO3 (20.0-26.0) mmol/L ABG Base Excess (-2.0-3.0) mmol/L ABG Hemoglobin (12.0-16.0) gm/dl Oxyhemoglobin (95.0-99.0) % Sodium (137-145) mmol/L Potassium (3.6-5.0) mmol/L Chloride (98-107) mmol/L BUN (7-17) mg/dL Glucose (65-100) mg/dL Lactic Acid 8.60 H* (0.7-2.0) mmol/L Magnesium 2.60 H (1.7-2.3) mg/dL Troponin T (0.00-0.029) ng/mL Total Protein (6.3-8.2) g/dL Albumin (3.9-5) g/dL TSH 4.550 H (0.270-4.200) mlU/mL Crossmatch 04/19/22 04/19/22 Range/Units 06:00 06:05 WBC (4.5-11.0) K/mm3 RBC (3.65-5.03) M/mm3 Hgb (10.1-14.3) gm/dl Hct (30.3-42.9) % MCV (79-97) fl MCHC (30-34) % RDW (13.2-15.2) % Seg Neuts % (Manual) (40.0-70.0) % Lymphocytes % (Manual) (13.4-35.0) % Nucleated RBC % (0.0-0.9) % Seg Neutrophils # Man (1.8-7.7) K/mm3 PT (12.2-14.9) Sec. APTT (24.2-36.6) Sec. ABG pO2 78.7 L (80.0-90.0) mm Hg ABG HCO3 28.3 H (20.0-26.0) mmol/L ABG Base Excess 3.9 H (-2.0-3.0) mmol/L ABG Hemoglobin < 12.0 L (12.0-16.0) gm/dl Oxyhemoglobin 94.7 L (95.0-99.0) % Sodium (137-145) mmol/L Potassium (3.6-5.0) mmol/L Chloride (98-107) mmol/L BUN (7-17) mg/dL Glucose (65-100) mg/dL Lactic Acid (0.7-2.0) mmol/L Magnesium (1.7-2.3) mg/dL Troponin T (0.00-0.029) ng/mL Total Protein (6.3-8.2) g/dL Albumin (3.9-5) g/dL TSH (0.270-4.200) mlU/mL Crossmatch See Detail - Imaging and Cardiology Chest x-ray: report reviewed, image reviewed (ET tube +, ?L atelectasis v/s pneumonia) Assessment and Plan Cultures: 04/19/2022 blood culture: In process A/P: 87-year-old female with seizure disorder, prior CVA, hypertension, dementia, [facility] resident known to us from her previous hospitalizations, had COVID- 19 pneumonia in January 2022, then readmitted with possible aspiration pneumonia, treated with antibiotics was brought from the [facility] with hypoxia, weakness: #SIRS v/s sepsis: Chest x-ray without obvious pneumonia, possible atelectasis. Leukocytosis could be reactive to severe anemia. UA without any pyuria. No obvious source of infection identified yet. #Severe anemia: GI has been consulted. #Lactic acidosis #Acute encephalopathy: Probably metabolic, sodium 162 Recs: Continue empiric cefepime, vancomycin for now Follow-up cultures and clinical course Joe Terry MD, FACP, [facility] O: [phone] F: [phone] C: [phone]
[2022-04-19] MEDS: SENNOSIDES/DOCUSATE SODIUM 8.6/50 MG TAB FEEDTUBE SCH ×2 (11:30→22:24)
[2022-04-19] MEDS: OCTREOTIDE 500 MCG in SODIUM CHLORIDE 0.9% 100 ML IV SCH (11:33)
[2022-04-19] MEDS: PANTOPRAZOLE 80 MG in SODIUM CHLORIDE 0.9% 100 ML IV SCH ×2 (11:35→22:00)
[2022-04-19] MEDS: SODIUM CHLORIDE 0.45% 1000 ML 1,000 ML IV SCH (11:36)
[2022-04-19] MEDS: INSULIN LISPRO 100 UNIT/ML SUB-Q SCH ×2 (13:09→18:31)
--- NOTE | 2022-04-19 13:19 | Gastroenterology Consultation ---
History of Present Illness - Reason for Consult Consult date: 04/19/22 GI Bleed Requesting physician: ALEJANDRA FOFANA - History of Present Illness Patient is intubated not responsive. Unable to contact son, Cristhian Braden, at [phone] Per report patient has history of dementia stroke brought in from shelter for respiratory distress intubated found to have pneumonia and severe anemia so GI was consulted Per ER report patient" dark stools. When I spoke with the ER physician this morning he reports he did not get any more information than that his overnight signout. He reports patient was not having melena as far as he is where in the ER I spoke to patient's nurse on the floor she reports no active melena Past History Past Medical History: diabetes (Type II), GERD, hypertension, stroke, other (Gout, head contusion, history of recent fall) Past Surgical History: PEG tube placement 2020 Social history: full code, other (Resident of [facility] nursing facility). denies: smoking, alcohol abuse, prescription drug abuse, IV drug use Family history: no significant family history Obtained/updated/reviewed patient's current medications Medications and Allergies Allergies Allergy/AdvReac Type Severity Reaction Status Date / Time No Known Allergies Allergy Verified 03/15/21 10:30 Home Medications Medication Instructions Recorded Confirmed Last Taken Type Ferrous Sulfate [Iron 325 MG] 325 mg PO DAILY 03/17/21 01/13/22 Unknown History Lovastatin [Altoprev] 40 mg PO DAILY 03/17/21 01/13/22 Unknown History allopurinoL [Zyloprim] 300 mg PO QDAY 03/17/21 01/13/22 Unknown History amLODIPine 10 mg PO DAILY 03/17/21 01/13/22 Unknown History Aspirin [Adult Aspirin] 81 mg PO DAILY #30 tablet. 03/22/21 01/13/22 Unknown Rx Linagliptin [Tradjenta] 5 mg PO QAMDIAB #30 tablet 03/22/21 01/13/22 Unknown Rx Insulin Glargine [Lantus VIAL] 10 units SUB-Q QHS #30 ml 11/04/21 01/13/22 Unknown Rx Lacosamide [Vimpat] 100 mg PO Q12HR #60 tablet 11/04/21 01/13/22 Unknown Rx Lansoprazole Solutab [Prevacid 30 mg FEEDTUBE QDAY #30 tab.rapdis 11/04/21 01/13/22 Unknown Rx Solutab] Sennosides/Docusate [Senokot S] 2 tab FEEDTUBE BID #30 tablet 11/04/21 01/13/22 Unknown Rx levETIRAcetam [Keppra] 1,000 mg FEEDTUBE BID #600 ml 11/04/21 01/13/22 Unknown Rx Ascorbic Acid [Vitamin C] 500 mg PO BID tablet 01/11/22 01/13/22 Unknown Rx Cholecalciferol Vit D3 [Vitamin D3 1,000 unit PO QDAY tablet 01/11/22 01/13/22 Unknown Rx 1,000 UNIT TAB] Dexamethasone [Decadron] 6 mg PO QDAY 5 Days #5 tab 01/11/22 01/13/22 Unknown Rx Metoprolol [Lopressor TAB] 25 mg PO Q8HR 30 Days #90 tablet 01/11/22 01/13/22 Unknown Rx Zinc Sulfate 220 mg PO BID capsule 01/11/22 01/13/22 Unknown Rx polyethylene glycoL 3350 [Miralax 17 gm PO QDAY powd.pack 01/11/22 01/13/22 Unknown Rx 3350] Acetaminophen [Acetaminophen TAB] 650 mg PO Q4H PRN tablet 01/19/22 Unknown Rx Lipase/Protease/Amylase [Pancreaze 1 each FEEDTUBE PRN PRN capsule 01/19/[address],500 Unit] Magnesium Hydroxide [Milk of 30 ml PO Q4H PRN oral.liqd 01/19/22 Unknown Rx Magnesia] Sodium Bicarbonate 325 mg FEEDTUBE PRN PRN tablet 01/19/22 Unknown Rx Active Meds: Active Medications Acetaminophen (Acetaminophen 650 Mg Rect Supp) 650 mg DC Q6H PRN PRN Reason: Pain MILD(1-3)/Fever >100.5/FERRARI Albuterol (Albuterol 2.5 Mg/3 Ml Nebu) 2.5 mg IH Q3HRT PRN PRN Reason: Shortness Of Breath Albuterol/Ipratropium (Ipratropium/Albuterol Sulfate 3 Ml Ampul.Neb) 1 ampul IH Q6HRT CONNIE Last Admin: 04/19/22 10:58 Dose: Not Given Dextrose (Dextrose 50% In Water (25gm) 50 Ml Syringe) 50 ml IV Q30MIN PRN; Protocol PRN Reason: Hypoglycemia Hydrophilic Ointment (Lip Therapy Vaseline) 1 applic TP Q2HR PRN PRN Reason: Dry Lips Fentanyl Citrate (Fentanyl Drip Premix) 1,000 mcg in 100 mls @ 2.5 mls/hr IV TITR CONNIE; Protocol Pantoprazole Sodium 80 mg/ (Sodium Chloride) 100 mls @ 10 mls/hr IV DIRECT CONNIE Last Admin: 04/19/22 11:35 Dose: 8 mg/hr, 10 mls/hr Octreotide Acetate 500 mcg/ (Sodium Chloride) 101 mls @ 5.05 mls/hr IV TITR CONNIE; Protocol Last Admin: 04/19/22 11:33 Dose: 25 mcg/hr, 5.05 mls/hr Cefepime HCl (Cefepime/Ns 2 Gm/100 Ml) 2 gm in 100 mls @ 200 mls/hr IV Q12H CONNIE Vancomycin HCl 1,250 mg/ (Sodium Chloride) 275 mls @ 166.667 mls/hr IV Q24H CONNIE Sodium Chloride (Nacl 0.45% 1000 Ml) 1,000 mls @ 125 mls/hr IV DIRECT CONNIE Last Admin: 04/19/22 11:36 Dose: 125 mls/hr Insulin Human Lispro (Insulin Lispro 100 Unit/Ml) 0 unit SUB-Q Q6HR [facility]; Protocol Last Admin: 04/19/22 13:09 Dose: 4 unit Morphine Sulfate (Morphine 2 Mg/1 Ml Inj) 2 mg IV Q4H PRN PRN Reason: Pain, Moderate (4-6) Multi-Ingred Cream/Lotion/Oil/Oint (Mineral Oil/Petrolatum, White Ophth Oint 3.5 Gm) 1 applic OU Q4HR PRN PRN Reason: Dry Eye(s) Naloxone HCl (Naloxone 0.4 Mg/1 Ml Inj) 0.1 mg IV Q2MIN PRN PRN Reason: Res Rate </= 8 or 02 SAT < 92% Senna/Docusate Sodium (Sennosides/Docusate Sodium 8.6/50 Mg Tab) 1 tab FEEDTUBE BID [facility] Last Admin: 04/19/22 11:30 Dose: Not Given Sodium Chloride (Sodium Chloride 0.9% 10 Ml Flush Syringe) 10 ml IV BID [facility] Last Admin: 04/19/22 11:41 Dose: 10 ml Sodium Chloride (Sodium Chloride 0.9% 10 Ml Flush Syringe) 10 ml IV PRN PRN PRN Reason: LINE FLUSH Review of Systems - Review of Systems ROS unobtainable: due to mental status Exam - Exam Narrative Exam: Intubated on mechanical ventilation - Constitutional Vital Signs: Temp Pulse Resp BP Pulse Ox 99.5 F 83 17 144/65 99 04/19/22 12:07 04/19/22 13:00 04/19/22 13:00 04/19/22 13:00 04/19/22 13:00 General appearance: other (Intubated) - EENT Eyes: other (No scleral icterus) - Neck Neck: supple - Respiratory Respiratory effort: other (Intubated) - Cardiovascular Rhythm: regular - Gastrointestinal General gastrointestinal: Present: soft - Integumentary Integumentary: Present: dry - Neurologic Neurological: disoriented - Psychiatric Psychiatric: other (Not responding to verbal stimuli) - Labs CBC & Chem 7: 04/19/22 05:26 04/19/22 05:26 Lab Results: Laboratory Results - last 24 hr 04/19/22 04/19/22 04/19/22 05:26 05:26 05:26 WBC 19.6 H RBC 1.39 L Hgb 4.1 L* Hct 14.8 L* MCV 106 H MCH 29 MCHC 28 L RDW 30.4 H Plt Count 399 Add Manual Diff Complete Total Counted 100 Seg Neutrophils % Sealing Machine Operator Seg Neuts % (Manual) 86.0 H Band Neutrophils % 0 Lymphocytes % (Manual) 10.0 L Reactive Lymphs % (Man) 0 Monocytes % (Manual) 4.0 Eosinophils % (Manual) 0 Basophils % (Manual) 0 Metamyelocytes % 0 Myelocytes % 0 Promyelocytes % 0 Blast Cells % 0 Nucleated RBC % 2.0 H Seg Neutrophils # Man 16.9 H Band Neutrophils # 0.0 Lymphocytes # (Manual) 2.0 Abs React Lymphs (Man) 0.0 Monocytes # (Manual) 0.8 Eosinophils # (Manual) 0.0 Basophils # (Manual) 0.0 Metamyelocytes # 0.0 Myelocytes # 0.0 Promyelocytes # 0.0 Blast Cells # 0.0 WBC Morphology Not Reportable Hypersegmented Neuts Not Reportable Hyposegmented Neuts Not Reportable Hypogranular Neuts Not Reportable Smudge Cells Not Reportable Toxic Granulation Not Reportable Toxic Vacuolation Not Reportable Dohle Bodies Not Reportable Pelger-Huet Anomaly Not Reportable Marina Rods Not Reportable Platelet Estimate Consistent w auto Clumped Platelets Not Reportable Plt Clumps, EDTA Not Reportable Large Platelets Not Reportable Giant Platelets Not Reportable Platelet Satelliting Not Reportable Plt Morphology Comment Not Reportable RBC Morphology Not Reportable Dimorphic RBCs Yes Polychromasia Not Reportable Hypochromasia Not Reportable Poikilocytosis Not Reportable Anisocytosis 3+ Microcytosis Not Reportable Macrocytosis Not Reportable Spherocytes Not Reportable Pappenheimer Bodies Not Reportable Sickle Cells Not Reportable Target Cells Not Reportable Tear Drop Cells Not Reportable Ovalocytes Not Reportable Stomatocytes 2+ Helmet Cells Not Reportable Martin-Kevin Bodies Not Reportable [place] Rings Not Reportable [place] Cells Not Reportable Bite Cells Not Reportable Crenated Cell Not Reportable Elliptocytes Not Reportable Acanthocytes (Spur) Not Reportable Rouleaux Not Reportable Hemoglobin C Crystals Not Reportable Schistocytes Not Reportable Malaria parasites Not Reportable Kevin Bodies Not Reportable Hem Pathologist Commnt No PT 15.5 H INR 1.08 APTT < 20.0 L ABG pH ABG pCO2 ABG pO2 ABG HCO3 ABG O2 Saturation ABG O2 Content ABG Base Excess ABG Hemoglobin ABG Carboxyhemoglobin ABG Methemoglobin Oxyhemoglobin FiO2 Sodium 162 H* Potassium 3.2 L Chloride 114.6 H Carbon Dioxide 28 Anion Gap 23 BUN 42 H Creatinine 0.9 Estimated GFR > 60 BUN/Creatinine Ratio 47 Glucose 295 H Lactic Acid Calcium 9.3 Magnesium Iron TIBC Ferritin Total Bilirubin 0.20 AST 37 ALT 23 Alkaline Phosphatase 85 Total Creatine Kinase Troponin T 0.086 H Total Protein 6.1 L Albumin 3.5 L Albumin/Globulin Ratio 1.3 Vitamin B12 Folate TSH Urine Color Urine Turbidity Specific Yoder (Man) Ur Protein (Man) Ur Ketones (Man) Ur Nitrite (Man) Urine Bilirubin (Man) Urine Ictotest Leukocyte Esterase (Man) Urine WBC (Auto) Urine RBC (Auto) U Epithel Cells (Auto) Urine Bacteria (Auto) Urine RBC (Manual) Hyaline Casts Granular Casts Urine Mucus Urine Yeast (Budding) SARS-CoV-2 (PCR) Blood Type Antibody Screen Crossmatch 04/19/22 04/19/22 04/19/22 05:26 05:26 05:26 WBC RBC Hgb Hct MCV MCH MCHC RDW Plt Count Add Manual Diff Total Counted Seg Neutrophils % Seg Neuts % (Manual) Band Neutrophils % Lymphocytes % (Manual) Reactive Lymphs % (Man) Monocytes % (Manual) Eosinophils % (Manual) Basophils % (Manual) Metamyelocytes % Myelocytes % Promyelocytes % Blast Cells % Nucleated RBC % Seg Neutrophils # Man Band Neutrophils # Lymphocytes # (Manual) Abs React Lymphs (Man) Monocytes # (Manual) Eosinophils # (Manual) Basophils # (Manual) Metamyelocytes # Myelocytes # Promyelocytes # Blast Cells # WBC Morphology Hypersegmented Neuts Hyposegmented Neuts Hypogranular Neuts Smudge Cells Toxic Granulation Toxic Vacuolation Dohle Bodies Pelger-Huet Anomaly Marina Rods Platelet Estimate Clumped Platelets Plt Clumps, EDTA Large Platelets Giant Platelets Platelet Satelliting Plt Morphology Comment RBC Morphology Dimorphic RBCs Polychromasia Hypochromasia Poikilocytosis Anisocytosis Microcytosis Macrocytosis Spherocytes Pappenheimer Bodies Sickle Cells Target Cells Tear Drop Cells Ovalocytes Stomatocytes Helmet Cells Martin-Kevin Bodies [place] Rings [place] Cells Bite Cells Crenated Cell Elliptocytes Acanthocytes (Spur) Rouleaux Hemoglobin C Crystals Schistocytes Malaria parasites Kevin Bodies Hem Pathologist Commnt PT INR APTT ABG pH ABG pCO2 ABG pO2 ABG HCO3 ABG O2 Saturation ABG O2 Content ABG Base Excess ABG Hemoglobin ABG Carboxyhemoglobin ABG Methemoglobin Oxyhemoglobin FiO2 Sodium Potassium Chloride Carbon Dioxide Anion Gap BUN Creatinine Estimated GFR BUN/Creatinine Ratio Glucose Lactic Acid 8.60 H* Calcium Magnesium 2.60 H Iron TIBC Ferritin Total Bilirubin AST ALT Alkaline Phosphatase Total Creatine Kinase 63 Troponin T Total Protein Albumin Albumin/Globulin Ratio Vitamin B12 Folate TSH 4.550 H Urine Color Urine Turbidity Specific Yoder (Man) Ur Protein (Man) Ur Ketones (Man) Ur Nitrite (Man) Urine Bilirubin (Man) Urine Ictotest Leukocyte Esterase (Man) Urine WBC (Auto) Urine RBC (Auto) U Epithel Cells (Auto) Urine Bacteria (Auto) Urine RBC (Manual) Hyaline Casts Granular Casts Urine Mucus Urine Yeast (Budding) SARS-CoV-2 (PCR) Blood Type Antibody Screen Crossmatch 04/19/22 04/19/22 04/19/22 05:26 05:26 05:26 WBC RBC Hgb Hct MCV MCH MCHC RDW Plt Count Add Manual Diff Total Counted Seg Neutrophils % Seg Neuts % (Manual) Band Neutrophils % Lymphocytes % (Manual) Reactive Lymphs % (Man) Monocytes % (Manual) Eosinophils % (Manual) Basophils % (Manual) Metamyelocytes % Myelocytes % Promyelocytes % Blast Cells % Nucleated RBC % Seg Neutrophils # Man Band Neutrophils # Lymphocytes # (Manual) Abs React Lymphs (Man) Monocytes # (Manual) Eosinophils # (Manual) Basophils # (Manual) Metamyelocytes # Myelocytes # Promyelocytes # Blast Cells # WBC Morphology Hypersegmented Neuts Hyposegmented Neuts Hypogranular Neuts Smudge Cells Toxic Granulation Toxic Vacuolation Dohle Bodies Pelger-Huet Anomaly Marina Rods Platelet Estimate Clumped Platelets Plt Clumps, EDTA Large Platelets Giant Platelets Platelet Satelliting Plt Morphology Comment RBC Morphology Dimorphic RBCs Polychromasia Hypochromasia Poikilocytosis Anisocytosis Microcytosis Macrocytosis Spherocytes Pappenheimer Bodies Sickle Cells Target Cells Tear Drop Cells Ovalocytes Stomatocytes Helmet Cells Martin-Kevin Bodies [place] Rings [place] Cells Bite Cells Crenated Cell Elliptocytes Acanthocytes (Spur) Rouleaux Hemoglobin C Crystals Schistocytes Malaria parasites Kevin Bodies Hem Pathologist Commnt PT INR APTT ABG pH ABG pCO2 ABG pO2 ABG HCO3 ABG O2 Saturation ABG O2 Content ABG Base Excess ABG Hemoglobin ABG Carboxyhemoglobin ABG Methemoglobin Oxyhemoglobin FiO2 Sodium Potassium Chloride Carbon Dioxide Anion Gap BUN Creatinine Estimated GFR BUN/Creatinine Ratio Glucose Lactic Acid Calcium Magnesium Iron 43 TIBC 252 Ferritin 142.5 Total Bilirubin AST ALT Alkaline Phosphatase Total Creatine Kinase Troponin T Total Protein Albumin Albumin/Globulin Ratio Vitamin B12 726.7 Folate TSH Urine Color Urine Turbidity Specific Yoder (Man) Ur Protein (Man) Ur Ketones (Man) Ur Nitrite (Man) Urine Bilirubin (Man) Urine Ictotest Leukocyte Esterase (Man) Urine WBC (Auto) Urine RBC (Auto) U Epithel Cells (Auto) Urine Bacteria (Auto) Urine RBC (Manual) Hyaline Casts Granular Casts Urine Mucus Urine Yeast (Budding) SARS-CoV-2 (PCR) Blood Type Antibody Screen Crossmatch 04/19/22 04/19/22 04/19/22 05:26 05:30 06:00 WBC RBC Hgb Hct MCV MCH MCHC RDW Plt Count Add Manual Diff Total Counted Seg Neutrophils % Seg Neuts % (Manual) Band Neutrophils % Lymphocytes % (Manual) Reactive Lymphs % (Man) Monocytes % (Manual) Eosinophils % (Manual) Basophils % (Manual) Metamyelocytes % Myelocytes % Promyelocytes % Blast Cells % Nucleated RBC % Seg Neutrophils # Man Band Neutrophils # Lymphocytes # (Manual) Abs React Lymphs (Man) Monocytes # (Manual) Eosinophils # (Manual) Basophils # (Manual) Metamyelocytes # Myelocytes # Promyelocytes # Blast Cells # WBC Morphology Hypersegmented Neuts Hyposegmented Neuts Hypogranular Neuts Smudge Cells Toxic Granulation Toxic Vacuolation Dohle Bodies Pelger-Huet Anomaly Marina Rods Platelet Estimate Clumped Platelets Plt Clumps, EDTA Large Platelets Giant Platelets Platelet Satelliting Plt Morphology Comment RBC Morphology Dimorphic RBCs Polychromasia Hypochromasia Poikilocytosis Anisocytosis Microcytosis Macrocytosis Spherocytes Pappenheimer Bodies Sickle Cells Target Cells Tear Drop Cells Ovalocytes Stomatocytes Helmet Cells Martin-Kevin Bodies [place] Rings [place] Cells Bite Cells Crenated Cell Elliptocytes Acanthocytes (Spur) Rouleaux Hemoglobin C Crystals Schistocytes Malaria parasites Kevin Bodies Hem Pathologist Commnt PT INR APTT ABG pH ABG pCO2 ABG pO2 ABG HCO3 ABG O2 Saturation ABG O2 Content ABG Base Excess ABG Hemoglobin ABG Carboxyhemoglobin ABG Methemoglobin Oxyhemoglobin FiO2 Sodium Potassium Chloride Carbon Dioxide Anion Gap BUN Creatinine Estimated GFR BUN/Creatinine Ratio Glucose Lactic Acid Calcium Magnesium Iron TIBC Ferritin Total Bilirubin AST ALT Alkaline Phosphatase Total Creatine Kinase Troponin T Total Protein Albumin Albumin/Globulin Ratio Vitamin B12 Folate 20.00 TSH Urine Color Yellow Urine Turbidity Clear Specific Yoder (Man) 1.010 Ur Protein (Man) 1+ Ur Ketones (Man) Negative Ur Nitrite (Man) Negative Urine Bilirubin (Man) Small Urine Ictotest Negative Leukocyte Esterase (Man) Trace Urine WBC (Auto) 4.0 Urine RBC (Auto) 1.0 U Epithel Cells (Auto) < 1.0 Urine Bacteria (Auto) 1+ Urine RBC (Manual) Negative Hyaline Casts 1 Granular Casts 10 Urine Mucus Few Urine Yeast (Budding) Few SARS-CoV-2 (PCR) Blood Type B POSITIVE Antibody Screen Negative Crossmatch See Detail 04/19/22 04/19/22 06:05 12:01 WBC RBC Hgb Hct MCV MCH MCHC RDW Plt Count Add Manual Diff Total Counted Seg Neutrophils % Seg Neuts % (Manual) Band Neutrophils % Lymphocytes % (Manual) Reactive Lymphs % (Man) Monocytes % (Manual) Eosinophils % (Manual) Basophils % (Manual) Metamyelocytes % Myelocytes % Promyelocytes % Blast Cells % Nucleated RBC % Seg Neutrophils # Man Band Neutrophils # Lymphocytes # (Manual) Abs React Lymphs (Man) Monocytes # (Manual) Eosinophils # (Manual) Basophils # (Manual) Metamyelocytes # Myelocytes # Promyelocytes # Blast Cells # WBC Morphology Hypersegmented Neuts Hyposegmented Neuts Hypogranular Neuts Smudge Cells Toxic Granulation Toxic Vacuolation Dohle Bodies Pelger-Huet Anomaly Marina Rods Platelet Estimate Clumped Platelets Plt Clumps, EDTA Large Platelets Giant Platelets Platelet Satelliting Plt Morphology Comment RBC Morphology Dimorphic RBCs Polychromasia Hypochromasia Poikilocytosis Anisocytosis Microcytosis Macrocytosis Spherocytes Pappenheimer Bodies Sickle Cells Target Cells Tear Drop Cells Ovalocytes Stomatocytes Helmet Cells Martin-Kevin Bodies [place] Rings [place] Cells Bite Cells Crenated Cell Elliptocytes Acanthocytes (Spur) Rouleaux Hemoglobin C Crystals Schistocytes Malaria parasites Kevin Bodies Hem Pathologist Commnt PT INR APTT ABG pH 7.449 ABG pCO2 41.7 ABG pO2 78.7 L ABG HCO3 28.3 H ABG O2 Saturation 97.0 ABG O2 Content 4.3 ABG Base Excess 3.9 H ABG Hemoglobin < 12.0 L ABG Carboxyhemoglobin 2.0 ABG Methemoglobin 0.3 Oxyhemoglobin 94.7 L FiO2 100 Sodium Potassium Chloride Carbon Dioxide Anion Gap BUN Creatinine Estimated GFR BUN/Creatinine Ratio Glucose Lactic Acid Calcium Magnesium Iron TIBC Ferritin Total Bilirubin AST ALT Alkaline Phosphatase Total Creatine Kinase Troponin T Total Protein Albumin Albumin/Globulin Ratio Vitamin B12 Folate TSH Urine Color Urine Turbidity Specific Yoder (Man) Ur Protein (Man) Ur Ketones (Man) Ur Nitrite (Man) Urine Bilirubin (Man) Urine Ictotest Leukocyte Esterase (Man) Urine WBC (Auto) Urine RBC (Auto) U Epithel Cells (Auto) Urine Bacteria (Auto) Urine RBC (Manual) Hyaline Casts Granular Casts Urine Mucus Urine Yeast (Budding) SARS-CoV-2 (PCR) Negative Blood Type Antibody Screen Crossmatch Assessment and Plan Patient had PEG tube placement 1 year ago with normal upper GI tract. Additionally, no overt GI bleeding. Given patient's medical status and no overt bleeding this juncture risks of endoscopic evaluation outweigh the benefits. Would recommend continuation of PPI in case this is an upper GI bleed We will continue to follow with you until final plan of care can be implemented - Patient Problems (1) Acute respiratory failure Current Visit: Yes Status: Acute (2) Anemia Current Visit: No Status: Acute Qualifiers: Anemia type: unspecified type Qualified Code(s): D64.9 - Anemia, unspecified
[2022-04-19] MEDS ORDERED: LIPASE 10,500/PROTEASE 25,000/AMYLASE 43,750 (UNITS) DR CAP FEEDTUBE PRN (16:00)
[2022-04-19] MEDS ORDERED: SIMPLE SYRUP 15 ML FEEDTUBE PRN ×2 (16:00)
[2022-04-19] MEDS ORDERED: SODIUM BICARBONATE 325 MG TAB FEEDTUBE PRN (16:00)
--- NOTE | 2022-04-19 16:04 | Event Note ---
Date: 04/19/22 Discussed with patient's son Mr. Cristhian Braden he elected to make his mother a DO NOT RESUSCITATE, He also gave verabal consent for Blood transfusion. Orders updated to reflect the new code status. 35 MINS Advance care planning spent on discussion.
[2022-04-19] MEDS: levETIRAcetam 1000 MG/NS 0.75% 1,000 MG/100 ML BAG IV SCH (18:30)
[2022-04-19] MEDS: CEFEPIME/NS 2 GM/100 ML 2 GM/100 ML BAG IV SCH (19:09)
[2022-04-19] MEDS: NYSTATIN 500,000 UNIT/5 ML ORAL LIQD PO SCH (20:24)
[2022-04-19 21:35] LABS: Hematocrit 28.1 % (30.3-42.9); Hemoglobin 8.7 gm/dl (10.1-14.3); Mean Corpuscular HGB Conc 31 % (30-34); Mean Corpuscular Volume 97 fl (79-97); Red Blood Count 2.89 M/mm3 (3.65-5.03); Red Cell Distribution Width 15.9 % (13.2-15.2)
[2022-04-19 21:40] LABS: Platelet Count 267 K/mm3 (140-440)
[2022-04-19 23:16] LABS: BUN/Creatinine Ratio 48; Blood Urea Nitrogen 43 mg/dL (7-17); Hemolysis Index 5
[2022-04-20 03:35] LABS: Chol/HDL Ratio 2.44 %
[2022-04-20] MEDS: IPRATROPIUM/ALBUTEROL SULFATE 3 ML AMPUL.NEB IH SCH ×4 (04:17→20:01)
[2022-04-20] MEDS: OCTREOTIDE 500 MCG in SODIUM CHLORIDE 0.9% 100 ML IV SCH (05:01)
[2022-04-20 05:13] LABS: Hematocrit 27.9 % (30.3-42.9); Hemoglobin 8.6 gm/dl (10.1-14.3); Mean Corpuscular HGB Conc 31 % (30-34); Mean Corpuscular Volume 96 fl (79-97); Platelet Count 314 K/mm3 (140-440); Red Blood Count 2.91 M/mm3 (3.65-5.03); Red Cell Distribution Width 16.5 % (13.2-15.2)
[2022-04-20 05:19] LABS: ABG Base Excess 10.1 mmol/L (-2.0-3.0); ABG HCO3 34.3 mmol/L (20.0-26.0); ABG Methemoglobin 0.6 % (0.0-1.5); ABG Oxygen Saturation 99.5 % (95.0-99.0); ABG PCO2 45.1 mm Hg; ABG PH 7.499 pH Units (7.350-7.450)
[2022-04-20 05:29] LABS: ABG PO2 334.3 mm Hg (80.0-90.0)
[2022-04-20 05:37] LABS: Alanine Aminotransferase 20 units/L (7-56); Albumin 3.7 g/dL (3.9-5); Blood Urea Nitrogen 25 mg/dL (7-17); Calcium 8.7 mg/dL (8.4-10.2); Hemolysis Index 5
[2022-04-20 05:38] LABS: BUN/Creatinine Ratio 42
[2022-04-20] MEDS: POTASSIUM CHLORIDE 10 MEQ 10 MEQ/100 ML BAG IV SCH ×4 (06:10→09:10)
--- NOTE | 2022-04-20 06:10 | XRay Report ---
CHEST 1 VIEW INDICATION / CLINICAL INFORMATION: follow up respiratory failure. COMPARISON: Chest x-ray 04/19/2022 FINDINGS: SUPPORT DEVICES: Endotracheal tube is in satisfactory position. Percutaneous gastrostomy tube project s left upper abdomen. HEART / MEDIASTINUM: Heart size is within normal limits. Mediastinal contour demonstrates no signific ant abnormality. LUNGS / PLEURA: Bilateral interstitial coarsening is stable with improved aeration left lung base. Pa rtial atelectasis of left lower lobe remains present. BONES: No significant osseous abnormality. ADDITIONAL FINDINGS: No significant additional findings. IMPRESSION: 1. Improving aeration of the left lung base. Otherwise stable lungs. Signer Name: Reece Suero II, MD Signed: 04/20/2022 6:06 AM Workstation Name: [id number]
[2022-04-20 06:12] LABS: Basophils % (Manual) 0 % (0.0-1.8); Eosinophils % (Manual) 0 % (0.0-4.3); Monocytes % (Manual) 0 % (0.0-7.3); Total Cells Counted 100
[2022-04-20 06:14] LABS: Platelet Estimate Consistent w Auto; Stomatocytes 1+
[2022-04-20] MEDS: levETIRAcetam 1000 MG/NS 0.75% 1,000 MG/100 ML BAG IV SCH (06:38)
[2022-04-20] MEDS: PANTOPRAZOLE 80 MG in SODIUM CHLORIDE 0.9% 100 ML IV SCH (06:38)
[2022-04-20] MEDS: INSULIN LISPRO 100 UNIT/ML SUB-Q SCH ×4 (06:39→18:14)
[2022-04-20] MEDS: VANCOMYCIN 1,250 MG in SODIUM CHLORIDE 0.9% 250ML 250 ML IV SCH (06:40)
[2022-04-20] MEDS: CEFEPIME/NS 2 GM/100 ML 2 GM/100 ML BAG IV SCH ×2 (06:40→18:13)
[2022-04-20] MEDS: SODIUM CHLORIDE 0.45% 1000 ML 1,000 ML IV SCH (06:40)
[2022-04-20] MEDS: NYSTATIN 500,000 UNIT/5 ML ORAL LIQD PO SCH ×3 (08:55→19:20)
[2022-04-20] MEDS: SENNOSIDES/DOCUSATE SODIUM 8.6/50 MG TAB FEEDTUBE SCH ×2 (09:01→21:43)
--- NOTE | 2022-04-20 09:41 | Gastroenterology Progress Note ---
Assessment and Plan Patient had PEG tube placement 1 year ago with normal upper GI tract. Additionally, no overt GI bleeding. Given patient's medical status and no overt bleeding this juncture risks of endoscopic evaluation outweigh the benefits. Would recommend continuation of PPI in case this is an upper GI bleed Given the above, GI will sign off please call us back if we be of any further assistance - Patient Problems (1) Acute respiratory failure Current Visit: Yes Status: Acute (2) Anemia Current Visit: No Status: Acute Qualifiers: Anemia type: unspecified type Qualified Code(s): D64.9 - Anemia, unspecified Subjective Date of service: 04/20/22 Principal diagnosis: anemia Interval history: pt remains intubated DNR status noted Hgb up and stable s/p transfusion Objective - Constitutional Vitals: Temp Pulse Resp BP Pulse Ox 98.5 F 102 H 18 139/75 100 04/20/22 08:00 04/20/22 09:00 04/20/22 09:00 04/20/22 09:00 04/20/22 09:00 General appearance: other (remains intubated) - Labs CBC & Chem 7: 04/20/22 04:51 04/20/22 04:51 Labs: Laboratory Results - last 24 hr 04/19/22 04/19/22 04/19/22 06:00 12:01 13:06 WBC RBC Hgb Hct MCV MCH MCHC RDW Plt Count Add Manual Diff Total Counted Seg Neuts % (Manual) Band Neutrophils % Lymphocytes % (Manual) Reactive Lymphs % (Man) Monocytes % (Manual) Eosinophils % (Manual) Basophils % (Manual) Metamyelocytes % Myelocytes % Promyelocytes % Blast Cells % Nucleated RBC % Seg Neutrophils # Man Band Neutrophils # Lymphocytes # (Manual) Abs React Lymphs (Man) Monocytes # (Manual) Eosinophils # (Manual) Basophils # (Manual) Metamyelocytes # Myelocytes # Promyelocytes # Blast Cells # WBC Morphology Hypersegmented Neuts Hyposegmented Neuts Hypogranular Neuts Smudge Cells Toxic Granulation Toxic Vacuolation Dohle Bodies Pelger-Huet Anomaly Marina Rods Platelet Estimate Clumped Platelets Plt Clumps, EDTA Large Platelets Giant Platelets Platelet Satelliting Plt Morphology Comment RBC Morphology Dimorphic RBCs Polychromasia Hypochromasia Poikilocytosis Anisocytosis Microcytosis Macrocytosis Spherocytes Pappenheimer Bodies Sickle Cells Target Cells Tear Drop Cells Ovalocytes Stomatocytes Helmet Cells Martin-Lonsdale Bodies Rowdy Rings Deonte Cells Bite Cells Crenated Cell Elliptocytes Acanthocytes (Spur) Rouleaux Hemoglobin C Crystals Schistocytes Malaria parasites Kevin Bodies Hem Pathologist Commnt ABG pH ABG pCO2 ABG pO2 ABG HCO3 ABG O2 Saturation ABG O2 Content ABG Base Excess ABG Hemoglobin ABG Carboxyhemoglobin ABG Methemoglobin Oxyhemoglobin FiO2 Sodium Potassium Chloride Carbon Dioxide Anion Gap BUN Creatinine Estimated GFR BUN/Creatinine Ratio Glucose POC Glucose 257 H Lactic Acid Calcium Total Bilirubin AST ALT Alkaline Phosphatase Troponin T Total Protein Albumin Albumin/Globulin Ratio Triglycerides Cholesterol LDL Cholesterol Direct HDL Cholesterol Cholesterol/HDL Ratio Free T4 SARS-CoV-2 (PCR) Negative Blood Type B POSITIVE Antibody Screen Negative Crossmatch See Detail 04/19/22 04/19/22 04/19/22 15:51 17:42 21:15 WBC RBC Hgb Hct MCV MCH MCHC RDW Plt Count Add Manual Diff Total Counted Seg Neuts % (Manual) Band Neutrophils % Lymphocytes % (Manual) Reactive Lymphs % (Man) Monocytes % (Manual) Eosinophils % (Manual) Basophils % (Manual) Metamyelocytes % Myelocytes % Promyelocytes % Blast Cells % Nucleated RBC % Seg Neutrophils # Man Band Neutrophils # Lymphocytes # (Manual) Abs React Lymphs (Man) Monocytes # (Manual) Eosinophils # (Manual) Basophils # (Manual) Metamyelocytes # Myelocytes # Promyelocytes # Blast Cells # WBC Morphology Hypersegmented Neuts Hyposegmented Neuts Hypogranular Neuts Smudge Cells Toxic Granulation Toxic Vacuolation Dohle Bodies Pelger-Huet Anomaly Marina Rods Platelet Estimate Clumped Platelets Plt Clumps, EDTA Large Platelets Giant Platelets Platelet Satelliting Plt Morphology Comment RBC Morphology Dimorphic RBCs Polychromasia Hypochromasia Poikilocytosis Anisocytosis Microcytosis Macrocytosis Spherocytes Pappenheimer Bodies Sickle Cells Target Cells Tear Drop Cells Ovalocytes Stomatocytes Helmet Cells Martin-L[place]dale Bodies Rowdy Rings Magnolia Cells Bite Cells Crenated Cell Elliptocytes Acanthocytes (Spur) Rouleaux Hemoglobin C Crystals Schistocytes Malaria parasites Kevin Bodies Hem Pathologist Commnt ABG pH ABG pCO2 ABG pO2 ABG HCO3 ABG O2 Saturation ABG O2 Content ABG Base Excess ABG Hemoglobin ABG Carboxyhemoglobin ABG Methemoglobin Oxyhemoglobin FiO2 Sodium 164 H* Potassium 3.2 L Chloride 116.5 H Carbon Dioxide 22 Anion Gap 29 BUN 43 H Creatinine 0.9 Estimated GFR > 60 BUN/Creatinine Ratio 48 Glucose 286 H POC Glucose 288 H Lactic Acid 4.10 H* Calcium 9.0 Total Bilirubin AST ALT Alkaline Phosphatase Troponin T Total Protein Albumin Albumin/Globulin Ratio Triglycerides Cholesterol LDL Cholesterol Direct HDL Cholesterol Cholesterol/HDL Ratio Free T4 SARS-CoV-2 (PCR) Blood Type Antibody Screen Crossmatch 04/19/22 04/19/22 04/19/22 21:15 21:15 23:30 WBC 19.2 H RBC 2.89 L Hgb 8.7 L D Hct 28.1 L D MCV 97 MCH 30 MCHC 31 RDW 15.9 H Plt Count 267 Add Manual Diff Total Counted Seg Neuts % (Manual) Band Neutrophils % Lymphocytes % (Manual) Reactive Lymphs % (Man) Monocytes % (Manual) Eosinophils % (Manual) Basophils % (Manual) Metamyelocytes % Myelocytes % Promyelocytes % Blast Cells % Nucleated RBC % Seg Neutrophils # Man Band Neutrophils # Lymphocytes # (Manual) Abs React Lymphs (Man) Monocytes # (Manual) Eosinophils # (Manual) Basophils # (Manual) Metamyelocytes # Myelocytes # Promyelocytes # Blast Cells # WBC Morphology Hypersegmented Neuts Hyposegmented Neuts Hypogranular Neuts Smudge Cells Toxic Granulation Toxic Vacuolation Dohle Bodies Pelger-Huet Anomaly Marina Rods Platelet Estimate Clumped Platelets Plt Clumps, EDTA Large Platelets Giant Platelets Platelet Satelliting Plt Morphology Comment RBC Morphology Dimorphic RBCs Polychromasia Hypochromasia Poikilocytosis Anisocytosis Microcytosis Macrocytosis Spherocytes Pappenheimer Bodies Sickle Cells Target Cells Tear Drop Cells Ovalocytes Stomatocytes Helmet Cells Martin-L[place]dale Bodies Rowdy Rings Magnolia Cells Bite Cells Crenated Cell Elliptocytes Acanthocytes (Spur) Rouleaux Hemoglobin C Crystals Schistocytes Malaria parasites Kevin Bodies Hem Pathologist Commnt ABG pH ABG pCO2 ABG pO2 ABG HCO3 ABG O2 Saturation ABG O2 Content ABG Base Excess ABG Hemoglobin ABG Carboxyhemoglobin ABG Methemoglobin Oxyhemoglobin FiO2 Sodium Potassium Chloride Carbon Dioxide Anion Gap BUN Creatinine Estimated GFR BUN/Creatinine Ratio Glucose POC Glucose 211 H Lactic Acid Calcium Total Bilirubin AST ALT Alkaline Phosphatase Troponin T 0.057 H D Total Protein Albumin Albumin/Globulin Ratio Triglycerides 148 Cholesterol 127 LDL Cholesterol Direct 52 HDL Cholesterol 52 Cholesterol/HDL Ratio 2.44 Free T4 SARS-CoV-2 (PCR) Blood Type Antibody Screen Crossmatch 04/20/22 04/20/22 04/20/22 02:11 04:45 04:51 WBC 17.8 H RBC 2.91 L Hgb 8.6 L Hct 27.9 L MCV 96 MCH 29 MCHC 31 RDW 16.5 H Plt Count 314 Add Manual Diff Complete Total Counted 100 Seg Neuts % (Manual) 94.0 H Band Neutrophils % 0 Lymphocytes % (Manual) 6.0 L Reactive Lymphs % (Man) 0 Monocytes % (Manual) 0 Eosinophils % (Manual) 0 Basophils % (Manual) 0 Metamyelocytes % 0 Myelocytes % 0 Promyelocytes % 0 Blast Cells % 0 Nucleated RBC % 1.0 H Seg Neutrophils # Man 16.7 H Band Neutrophils # 0.0 Lymphocytes # (Manual) 1.1 L Abs React Lymphs (Man) 0.0 Monocytes # (Manual) 0.0 Eosinophils # (Manual) 0.0 Basophils # (Manual) 0.0 Metamyelocytes # 0.0 Myelocytes # 0.0 Promyelocytes # 0.0 Blast Cells # 0.0 WBC Morphology Not Reportable Hypersegmented Neuts Not Reportable Hyposegmented Neuts Not Reportable Hypogranular Neuts Not Reportable Smudge Cells Not Reportable Toxic Granulation Not Reportable Toxic Vacuolation Not Reportable Dohle Bodies Not Reportable Pelger-Huet Anomaly Not Reportable Marina Rods Not Reportable Platelet Estimate Consistent w auto Clumped Platelets Not Reportable Plt Clumps, EDTA Not Reportable Large Platelets Not Reportable Giant Platelets Not Reportable Platelet Satelliting Not Reportable Plt Morphology Comment Not Reportable RBC Morphology Not Reportable Dimorphic RBCs Not Reportable Polychromasia Few Hypochromasia Not Reportable Poikilocytosis Not Reportable Anisocytosis Not Reportable Microcytosis Not Reportable Macrocytosis Not Reportable Spherocytes Not Reportable Pappenheimer Bodies Not Reportable Sickle Cells Not Reportable Target Cells Not Reportable Tear Drop Cells Not Reportable Ovalocytes Not Reportable Stomatocytes 1+ Helmet Cells Not Reportable Martin-Lonsdale Bodies Not Reportable Rowdy Rings Not Reportable Magnolia Cells Not Reportable Bite Cells Not Reportable Crenated Cell Not Reportable Elliptocytes Not Reportable Acanthocytes (Spur) Not Reportable Rouleaux Not Reportable Hemoglobin C Crystals Not Reportable Schistocytes Not Reportable Malaria parasites Not Reportable Kevin Bodies Not Reportable Hem Pathologist Commnt No ABG pH 7.499 H ABG pCO2 45.1 ABG pO2 334.3 H ABG HCO3 34.3 H ABG O2 Saturation 99.5 H ABG O2 Content 14.5 ABG Base Excess 10.1 H ABG Hemoglobin 9.9 L ABG Carboxyhemoglobin 1.3 ABG Methemoglobin 0.6 Oxyhemoglobin 97.7 FiO2 90 Sodium Potassium Chloride Carbon Dioxide Anion Gap BUN Creatinine Estimated GFR BUN/Creatinine Ratio Glucose POC Glucose Lactic Acid Calcium Total Bilirubin AST ALT Alkaline Phosphatase Troponin T 0.064 H Total Protein Albumin Albumin/Globulin Ratio Triglycerides Cholesterol LDL Cholesterol Direct HDL Cholesterol Cholesterol/HDL Ratio Free T4 SARS-CoV-2 (PCR) Blood Type Antibody Screen Crossmatch 04/20/22 04/20/22 04:51 04:51 WBC RBC Hgb Hct MCV MCH MCHC RDW Plt Count Add Manual Diff Total Counted Seg Neuts % (Manual) Band Neutrophils % Lymphocytes % (Manual) Reactive Lymphs % (Man) Monocytes % (Manual) Eosinophils % (Manual) Basophils % (Manual) Metamyelocytes % Myelocytes % Promyelocytes % Blast Cells % Nucleated RBC % Seg Neutrophils # Man Band Neutrophils # Lymphocytes # (Manual) Abs React Lymphs (Man) Monocytes # (Manual) Eosinophils # (Manual) Basophils # (Manual) Metamyelocytes # Myelocytes # Promyelocytes # Blast Cells # WBC Morphology Hypersegmented Neuts Hyposegmented Neuts Hypogranular Neuts Smudge Cells Toxic Granulation Toxic Vacuolation Dohle Bodies Pelger-Huet Anomaly Marina Rods Platelet Estimate Clumped Platelets Plt Clumps, EDTA Large Platelets Giant Platelets Platelet Satelliting Plt Morphology Comment RBC Morphology Dimorphic RBCs Polychromasia Hypochromasia Poikilocytosis Anisocytosis Microcytosis Macrocytosis Spherocytes Pappenheimer Bodies Sickle Cells Target Cells Tear Drop Cells Ovalocytes Stomatocytes Helmet Cells Martin-Lons[place] Bodies Rowdy Rings Magnolia Cells Bite Cells Crenated Cell Elliptocytes Acanthocytes (Spur) Rouleaux Hemoglobin C Crystals Schistocytes Malaria parasites Kevin Bodies Hem Pathologist Commnt ABG pH ABG pCO2 ABG pO2 ABG HCO3 ABG O2 Saturation ABG O2 Content ABG Base Excess ABG Hemoglobin ABG Carboxyhemoglobin ABG Methemoglobin Oxyhemoglobin FiO2 Sodium 163 H* Potassium 2.6 L* Chloride 117.9 H Carbon Dioxide 27 Anion Gap 21 BUN 25 H Creatinine 0.6 Estimated GFR > 60 BUN/Creatinine Ratio 42 Glucose 251 H POC Glucose Lactic Acid Calcium 8.7 Total Bilirubin 0.40 AST 33 ALT 20 Alkaline Phosphatase 72 Troponin T Total Protein 6.7 Albumin 3.7 L Albumin/Globulin Ratio 1.2 Triglycerides Cholesterol LDL Cholesterol Direct HDL Cholesterol Cholesterol/HDL Ratio Free T4 0.81 SARS-CoV-2 (PCR) Blood Type Antibody Screen Crossmatch
[2022-04-20] MEDS ORDERED: FREE WATER PO SCH (10:00)
--- NOTE | 2022-04-20 11:05 | Progress Note ---
Assessment and Plan Cultures: 04/19/2022 blood culture: no growth so far 04/19/2022 COVID-19 PCR: Negative A/P: 87-year-old female with seizure disorder, prior CVA, hypertension, dementia, group home resident known to us from her previous hospitalizations, had COVID- 19 pneumonia in January 2022, then readmitted with possible aspiration pneumonia, treated with antibiotics was brought from the group home with hypoxia, weakness: #SIRS v/s sepsis: Chest x-ray without obvious pneumonia, possible atelectasis. Leukocytosis could be reactive to severe anemia. UA without any pyuria. No obvious source of infection identified yet. #Severe anemia: GI evaluted, signed off. On PPI drip. #Lactic acidosis #Acute encephalopathy: Probably metabolic, sodium 162 #Acute resp failure: on the vent. Recs: Continue empiric cefepime, vancomycin for now Follow-up cultures and clinical course Monitor WBC, if it remains elevated, consider CT abdomen and pelvis to evaluate for source Joe Terry MD, FACP, [facility] ([facility] O: [phone] F: [phone] C: [phone] Subjective Date of service: 04/20/22 Principal diagnosis: anemia Interval history: Afebrile. Remains on the vent. Objective - Exam Narrative Exam: Physical Exam: Constitutional: intubated, on the vent Head, Ears, Nose: Normocephalic, atraumatic. External ears, nose normal Eyes: Conjunctivae/corneas clear. No icterus. No ptosis. Neck: intubated Oral: intubated Cardiovascular: S1, S2 + Respiratory: AE fair bilaterally and equal GI: Soft, bowel sounds + Musculoskeletal: No pedal edema, no cyanosis. Contractures, foot drop bilaterally Skin: No rash or abscess Hem/Lymphatic: No palpable cervical or supraclavicular nodes. No lymphangitis Psych: no agitation Neurological: intubated, on the vent, exam limited - Constitutional Vitals: Vital Signs Temp Pulse Resp BP Pulse Ox 98.5 F 105 H 17 145/82 100 04/20/22 08:00 04/20/22 10:00 04/20/22 10:00 04/20/22 10:04/20/22 10:00 Temperature -Last 24 Hours Temperature 98.5 F Temperature 98.7 F Temperature 98.6 F Temperature 99.2 F Temperature 97.4 F Temperature 99.5 F - Labs CBC & Chem 7: 04/20/22 04:51 04/20/22 04:51 Labs: Abnormal lab results 04/19/22 04/19/22 04/19/22 Range/Units 06:00 13:06 15:51 WBC (4.5-11.0) K/mm3 RBC (3.65-5.03) M/mm3 Hgb (10.1-14.3) gm/dl Hct (30.3-42.9) % RDW (13.2-15.2) % Seg Neuts % (Manual) (40.0-70.0) % Lymphocytes % (Manual) (13.4-35.0) % Nucleated RBC % (0.0-0.9) % Seg Neutrophils # Man (1.8-7.7) K/mm3 Lymphocytes # (Manual) (1.2-5.4) K/mm3 ABG pH (7.350-7.450) pH Units ABG pO2 (80.0-90.0) mm Hg ABG HCO3 (20.0-26.0) mmol/L ABG O2 Saturation (95.0-99.0) % ABG Base Excess (-2.0-3.0) mmol/L ABG Hemoglobin (12.0-16.0) gm/dl Sodium 164 H* (137-145) mmol/L Potassium 3.2 L (3.6-5.0) mmol/L Chloride 116.5 H (98-107) mmol/L BUN 43 H (7-17) mg/dL Glucose 286 H (65-100) mg/dL POC Glucose 257 H (70-105) mg/dL Lactic Acid (0.7-2.0) mmol/L Troponin T (0.00-0.029) ng/mL Albumin (3.9-5) g/dL Crossmatch See Detail 04/19/22 04/19/22 04/19/22 Range/Units 17:42 21:15 21:15 WBC 19.2 H (4.5-11.0) K/mm3 RBC 2.89 L (3.65-5.03) M/mm3 Hgb 8.7 L D (10.1-14.3) gm/dl Hct 28.1 L D (30.3-42.9) % RDW 15.9 H (13.2-15.2) % Seg Neuts % (Manual) (40.0-70.0) % Lymphocytes % (Manual) (13.4-35.0) % Nucleated RBC % (0.0-0.9) % Seg Neutrophils # Man (1.8-7.7) K/mm3 Lymphocytes # (Manual) (1.2-5.4) K/mm3 ABG pH (7.350-7.450) pH Units ABG pO2 (80.0-90.0) mm Hg ABG HCO3 (20.0-26.0) mmol/L ABG O2 Saturation (95.0-99.0) % ABG Base Excess (-2.0-3.0) mmol/L ABG Hemoglobin (12.0-16.0) gm/dl Sodium (137-145) mmol/L Potassium (3.6-5.0) mmol/L Chloride (98-107) mmol/L BUN (7-17) mg/dL Glucose (65-100) mg/dL POC Glucose 288 H (70-105) mg/dL Lactic Acid 4.10 H* (0.7-2.0) mmol/L Troponin T (0.00-0.029) ng/mL Albumin (3.9-5) g/dL Crossmatch 04/19/22 04/19/22 04/20/22 Range/Units 21:15 23:30 02:11 WBC (4.5-11.0) K/mm3 RBC (3.65-5.03) M/mm3 Hgb (10.1-14.3) gm/dl Hct (30.3-42.9) % RDW (13.2-15.2) % Seg Neuts % (Manual) (40.0-70.0) % Lymphocytes % (Manual) (13.4-35.0) % Nucleated RBC % (0.0-0.9) % Seg Neutrophils # Man (1.8-7.7) K/mm3 Lymphocytes # (Manual) (1.2-5.4) K/mm3 ABG pH (7.350-7.450) pH Units ABG pO2 (80.0-90.0) mm Hg ABG HCO3 (20.0-26.0) mmol/L ABG O2 Saturation (95.0-99.0) % ABG Base Excess (-2.0-3.0) mmol/L ABG Hemoglobin (12.0-16.0) gm/dl Sodium (137-145) mmol/L Potassium (3.6-5.0) mmol/L Chloride (98-107) mmol/L BUN (7-17) mg/dL Glucose (65-100) mg/dL POC Glucose 211 H (70-105) mg/dL Lactic Acid (0.7-2.0) mmol/L Troponin T 0.057 H D 0.064 H (0.00-0.029) ng/mL Albumin (3.9-5) g/dL Crossmatch 04/20/22 04/20/22 04/20/22 Range/Units 04:45 04:51 04:51 WBC 17.8 H (4.5-11.0) K/mm3 RBC 2.91 L (3.65-5.03) M/mm3 Hgb 8.6 L (10.1-14.3) gm/dl Hct 27.9 L (30.3-42.9) % RDW 16.5 H (13.2-15.2) % Seg Neuts % (Manual) 94.0 H (40.0-70.0) % Lymphocytes % (Manual) 6.0 L (13.4-35.0) % Nucleated RBC % 1.0 H (0.0-0.9) % Seg Neutrophils # Man 16.7 H (1.8-7.7) K/mm3 Lymphocytes # (Manual) 1.1 L (1.2-5.4) K/mm3 ABG pH 7.499 H (7.350-7.450) pH Units ABG pO2 334.3 H (80.0-90.0) mm Hg ABG HCO3 34.3 H (20.0-26.0) mmol/L ABG O2 Saturation 99.5 H (95.0-99.0) % ABG Base Excess 10.1 H (-2.0-3.0) mmol/L ABG Hemoglobin 9.9 L (12.0-16.0) gm/dl Sodium 163 H* (137-145) mmol/L Potassium 2.6 L* (3.6-5.0) mmol/L Chloride 117.9 H (98-107) mmol/L BUN 25 H (7-17) mg/dL Glucose 251 H (65-100) mg/dL POC Glucose (70-105) mg/dL Lactic Acid (0.7-2.0) mmol/L Troponin T (0.00-0.029) ng/mL Albumin 3.7 L (3.9-5) g/dL Crossmatch - Imaging and cardiology Chest x-ray: report reviewed, image reviewed (Chest x-ray does not show any significant pneumonia. ET tube present. )
--- NOTE | 2022-04-20 11:09 | Progress Note ---
<NISA DENNIS - Last Filed: 04/20/22 19:03> Assessment and Plan Assessment and plan: This is 87-year-old female from [facility] facility with known past medical history of HTN, CVA, DM, GERD, dementia, dysphagia s/p PEG-Tube placement, and renal disease admitted for severe anemia with possible GI bleed, sepsis, and acute hypoxic respiratory failure requiring ventilatory support. Hospital Course to Date: 04/20: Remains on the vent, tolerating PSV trial this am, plan to wean for possible extubation per CCM. Patient remains on octreotide and protonix gtts. s/p 2units of PRBCs, H&H stable, no s/s of any active bleeding. Tolerating TF. GI recommendations noted, no plan for any intervention at this time. Will D/C octreotide gtt and switched PPI to PO BID. Still with severe hypernatremia despite continuous IVF hydration, now with hypokelemia. FWF added and K repleted, will also consult nephrology for further recs. Continue to monitor and replace electrolytes as needed. SSI adjusted and lantus added Qhs for hyperglycemia. Assessment and Plan #Acute Hypoxic Respiratory Failure #Possible Aspiration - Presented from [facility] with high fever, tachycardia, and hypoxic - Intubated in the Ed for airway protection on 04/19 - Purulent vs TF contents was suctioned during intubation - Initial CXR revealed worsening opacities at the mid-lower left lung reflecting atelectasis - Vent setting:CPAP- 35%,8 PS-8 - AM ABG noted - CCM consulted, appreciate recommendations - Continue IV Abx per ID and vent adjustment per CCM - VAP bundle addressed - Aspiration precaution HOB above 30 - Daily SBT trials as tolerated. Plan to wean for possible extubation - Daily ABG and CXR - Continue SPO2 monitoring for SPO2 goal above 92% #Severe Anemia with Possible Gastrointestinal Bleed - Presented with Hgb of 4.1, occult stool is positive. No s/s of any active bleeding - On octreotide and protonix gtt - S/p 2units of PRBCs - GI consulted, recommendations appreciated - No report of any active bleeding since admit, H&H stable - No plan for any interventions per GI - Will D/C octreotide gtt. PPI switched to PO protonix BID - Close monitoring for any s/s of any active bleeding - Continue to trend CBC - Transfuse for hgb less than 7 #Severe Hypernatremia #Hypokalemia #Hypomagnesemia - Probably secondary to hypovelemia/dehydration - Patient remains severely hypernatremic this am, now with hypokalemia - Remains on continuous IVF - FWF added Q4hrs, K repeleted - Nephrology consulted - Strict intake and output - Monitor and replace electrolytes as needed #Sepsis (POA) #Possible Aspiration Pneumonia #Leukocytosis #Lactic Acidosis - Presented with with high fever, tachycardia, and hypoxic - Purulent vs TF contents was suctioned during intubation - Initial CXR revealed worsening opacities at the mid-lower left lung reflecting atelectasis - UA is unremarkable, Blood cultures with NGTD, sputum culture pending - ID consulted, appreciate recommendations - Continue current IV abx- Cefepine, Vanco - F/U on cultures - Daily CBC monitor #Acute Metabolic Encephalopathy #History of Seizure Disorder #H/o CVA and Dementia #Custodial Resident - Unresponsive on presentation, most likely secondary to above - bedbound and confused at baseline - Currently intubated, not on any sedations. open eyes spontaneously, does not track, does not follow any commands - Treat underlying factors as above - Resume home keppra - Seizure precaution - Aspiration precaution - Avoid benzodiazepine to reduce the possibility of delirium - PRN Analgesia for CPOT greater than 3 - Maintenance of sleep-wake cycle #Non-ST elevated WA (NSTEMI) #Hypertension - Presented with elevated Troponin, probable demand ischemia - Cardiology on consult, appreciated recommendations - Remains in SR on the monitor, no significant ST changes appreciated - SBP in the 150s-160s - Will resume home antihypertensive - Continue blood pressure monitor per protocol - Maintain SBP less than 160 #Type 2 Diabetes Mellitus with Hyperglycemia - BG check and SSI Q6hrs - Lantus added Qhs - Avoid hypoglycemia #GI/DVT Prophylaxis - PPI- Protonix - SCDs to bilateral lower extremities while in bed #Advance Care Planning - Disease education data, care plan, diagnoses, and prognosis were discussed with patient's son via phone. Patient is AND/DNR status. Patient's son acknowledged understanding and agreed with current care plan. The high probability of a clinically significant, sudden or life threatening deterioration of the [multiple] system(s) required my full and direct attention, intervention and personal management. The aggregate critical care time was [60] minutes. This time is in addition to time spent performing reported procedures but includes the following: [x] Data Review and interpretation [x] Patient assessment and monitoring of vital signs [x] Documentation [x] Medication orders and management Disposition Plan: ICU Total Time Spent with Patient (Minutes): 60 History Interval history: Patient seen and examined at the bedside. Intubated but unresponsive. Not on any sedations. Open eyes spontaneously, but does not tract, does not follow any commands. LUE and BLE are contracted. Remains on octreotide and protoconix gtt. S/p 2units of PRBCs, no s/s of any active bleeding, H&H stable, and VSS. [place] overnight Hospitalist Physical - Constitutional Vitals: Temp Pulse Resp BP Pulse Ox 98.5 F 83 20 131/62 100 04/20/22 08:00 04/20/22 11:00 04/20/22 11:00 04/20/22 11:00 04/20/22 11:00 General appearance: Present: cachectic, other (Intubated and unresponsive) - EENT Eyes: Present: PERRL - Respiratory Respiratory effort: normal Respiratory: bilateral: rhonchi - Cardiovascular Rhythm: regular Heart Sounds: Present: S1 & S2 - Extremities Extremities: no ischemia, pulses intact, pulses symmetrical, abnormal (LUE and BLE contractions. Sacral wounds noted(POA)) Peripheral Pulses: within normal limits - Abdominal General gastrointestinal: soft, non-distended, normal bowel sounds - Integumentary Integumentary: Present: warm, dry - Psychiatric Psychiatric: other (Intubated, unresponsive.) - Neurologic Neurologic: other (Intubated, unresponsive. Open eyes spontaneously, does not tract, does not follow any commands) - Allied Health Allied health notes reviewed: nursing, case management HEART Score - HEART Score Troponin: Troponin T 0.064 ng/mL (0.00-0.029) H 04/20/22 02:11 Results - Labs CBC & Chem 7: 04/20/22 04:51 04/20/22 13:57 Labs: Laboratory Last Values WBC 17.8 K/mm3 (4.5-11.0) H 04/20/22 04:51 RBC 2.91 M/mm3 (3.65-5.03) L 04/20/22 04:51 Hgb 8.6 gm/dl (10.1-14.3) L 04/20/22 04:51 Hct 27.9 % (30.3-42.9) L 04/20/22 04:51 MCV 96 fl (79-97) 04/20/22 04:51 MCH 29 pg (28-32) 04/20/22 04:51 MCHC 31 % (30-34) 04/20/22 04:51 RDW 16.5 % (13.2-15.2) H 04/20/22 04:51 Plt Count 314 K/mm3 (140-440) 04/20/22 04:51 Add Manual Diff Complete 04/20/22 04:51 Total Counted 100 04/20/22 04:51 Seg Neutrophils % Circuit Breaker Supervisor 04/19/22 05:26 Seg Neuts % (Manual) 94.0 % (40.0-70.0) H 04/20/22 04:51 Band Neutrophils % 0 % 04/20/22 04:51 Lymphocytes % (Manual) 6.0 % (13.4-35.0) L 04/20/22 04:51 Reactive Lymphs % (Man) 0 % 04/20/22 04:51 Monocytes % (Manual) 0 % (0.0-7.3) 04/20/22 04:51 Eosinophils % (Manual) 0 % (0.0-4.3) 04/20/22 04:51 Basophils % (Manual) 0 % (0.0-1.8) 04/20/22 04:51 Metamyelocytes % 0 % 04/20/22 04:51 Myelocytes % 0 % 04/20/22 04:51 Promyelocytes % 0 % 04/20/22 04:51 Blast Cells % 0 % 04/20/22 04:51 Nucleated RBC % 1.0 % (0.0-0.9) H 04/20/22 04:51 Seg Neutrophils # Man 16.7 K/mm3 (1.8-7.7) H 04/20/22 04:51 Band Neutrophils # 0.0 K/mm3 04/20/22 04:51 Lymphocytes # (Manual) 1.1 K/mm3 (1.2-5.4) L 04/20/22 04:51 Abs React Lymphs (Man) 0.0 K/mm3 04/20/22 04:51 Monocytes # (Manual) 0.0 K/mm3 (0.0-0.8) 04/20/22 04:51 Eosinophils # (Manual) 0.0 K/mm3 (0.0-0.4) 04/20/22 04:51 Basophils # (Manual) 0.0 K/mm3 (0.0-0.1) 04/20/22 04:51 Metamyelocytes # 0.0 K/mm3 04/20/22 04:51 Myelocytes # 0.0 K/mm3 04/20/22 04:51 Promyelocytes # 0.0 K/mm3 04/20/22 04:51 Blast Cells # 0.0 K/mm3 04/20/22 04:51 WBC Morphology Not Reportable 04/20/22 04:51 Hypersegmented Neuts Not Reportable 04/20/22 04:51 Hyposegmented Neuts Not Reportable 04/20/22 04:51 Hypogranular Neuts Not Reportable 04/20/22 04:51 Smudge Cells Not Reportable 04/20/22 04:51 Toxic Granulation Not Reportable 04/20/22 04:51 Toxic Vacuolation Not Reportable 04/20/22 04:51 Dohle Bodies Not Reportable 04/20/22 04:51 Pelger-Huet Anomaly Not Reportable 04/20/22 04:51 Marina Rods Not Reportable 04/20/22 04:51 Platelet Estimate Consistent w auto 04/20/22 04:51 Clumped Platelets Not Reportable 04/20/22 04:51 Plt Clumps, EDTA Not Reportable 04/20/22 04:51 Large Platelets Not Reportable 04/20/22 04:51 Giant Platelets Not Reportable 04/20/22 04:51 Platelet Satelliting Not Reportable 04/20/22 04:51 Plt Morphology Comment Not Reportable 04/20/22 04:51 RBC Morphology Not Reportable 04/20/22 04:51 Dimorphic RBCs Not Reportable 04/20/22 04:51 Polychromasia Few 04/20/22 04:51 Hypochromasia Not Reportable 04/20/22 04:51 Poikilocytosis Not Reportable 04/20/22 04:51 Anisocytosis Not Reportable 04/20/22 04:51 Microcytosis Not Reportable 04/20/22 04:51 Macrocytosis Not Reportable 04/20/22 04:51 Spherocytes Not Reportable 04/20/22 04:51 Pappenheimer Bodies Not Reportable 04/20/22 04:51 Sickle Cells Not Reportable 04/20/22 04:51 Target Cells Not Reportable 04/20/22 04:51 Tear Drop Cells Not Reportable 04/20/22 04:51 Ovalocytes Not Reportable 04/20/22 04:51 Stomatocytes 1+ 04/20/22 04:51 Helmet Cells Not Reportable 04/20/22 04:51 [place] Bodies Not Reportable 04/20/22 04:51 Gautier Rings Not Reportable 04/20/22 04:51 Murdock Cells Not Reportable 04/20/22 04:51 Bite Cells Not Reportable 04/20/22 04:51 Crenated Cell Not Reportable 04/20/22 04:51 Elliptocytes Not Reportable 04/20/22 04:51 Acanthocytes (Spur) Not Reportable 04/20/22 04:51 Rouleaux Not Reportable 04/20/22 04:51 Hemoglobin C Crystals Not Reportable 04/20/22 04:51 Schistocytes Not Reportable 04/20/22 04:51 Malaria parasites Not Reportable 04/20/22 04:51 Kevin Bodies Not Reportable 04/20/22 04:51 Hem Pathologist Commnt No 04/20/22 04:51 PT 15.5 Sec. (12.2-14.9) H 04/19/22 05:26 INR 1.08 (0.87-1.13) 04/19/22 05:26 APTT < 20.0 Sec. (24.2-36.6) L 04/19/22 05:26 ABG pH 7.499 pH Units (7.350-7.450) H 04/20/22 04:45 ABG pCO2 45.1 mm Hg 04/20/22 04:45 ABG pO2 334.3 mm Hg (80.0-90.0) H 04/20/22 04:45 ABG HCO3 34.3 mmol/L (20.0-26.0) H 04/20/22 04:45 ABG O2 Saturation 99.5 % (95.0-99.0) H 04/20/22 04:45 ABG O2 Content 14.5 (0.0-44) 04/20/22 04:45 ABG Base Excess 10.1 mmol/L (-2.0-3.0) H 04/20/22 04:45 ABG Hemoglobin 9.9 gm/dl (12.0-16.0) L 04/20/22 04:45 ABG Carboxyhemoglobin 1.3 % (0.0-5.0) 04/20/22 04:45 ABG Methemoglobin 0.6 % (0.0-1.5) 04/20/22 04:45 Oxyhemoglobin 97.7 % (95.0-99.0) 04/20/22 04:45 FiO2 90 % 04/20/22 04:45 Sodium 163 mmol/L (137-145) H* 04/20/22 04:51 Potassium 2.6 mmol/L (3.6-5.0) L* 04/20/22 04:51 Chloride 117.9 mmol/L (98-107) H 04/20/22 04:51 Carbon Dioxide 27 mmol/L (22-30) 04/20/22 04:51 Anion Gap 21 mmol/L 04/20/22 04:51 BUN 25 mg/dL (7-17) H 04/20/22 04:51 Creatinine 0.6 mg/dL (0.6-1.2) 04/20/22 04:51 Estimated GFR > 60 ml/min 04/20/22 04:51 BUN/Creatinine Ratio 42 % 04/20/22 04:51 Glucose 251 mg/dL (65-100) H 04/20/22 04:51 POC Glucose 211 mg/dL (70-105) H 04/19/22 23:30 Lactic Acid 4.10 mmol/L (0.7-2.0) H* 04/19/22 21:15 Calcium 8.7 mg/dL (8.4-10.2) 04/20/22 04:51 Magnesium 2.60 mg/dL (1.7-2.3) H 04/19/22 05:26 Iron 43 ug/dL (37-170) 04/19/22 05:26 TIBC 252 mcg/dL (250-450) 04/19/22 05:26 Ferritin 142.5 ng/mL (10.0-200.0) 04/19/22 05:26 Total Bilirubin 0.40 mg/dL (0.1-1.2) 04/20/22 04:51 AST 33 units/L (5-40) 04/20/22 04:51 ALT 20 units/L (7-56) 04/20/22 04:51 Alkaline Phosphatase 72 units/L (35-129) 04/20/22 04:51 Total Creatine Kinase 63 units/L (30-135) 04/19/22 05:26 Troponin T 0.064 ng/mL (0.00-0.029) H 04/20/22 02:11 Total Protein 6.7 g/dL (6.3-8.2) 04/20/22 04:51 Albumin 3.7 g/dL (3.9-5) L 04/20/22 04:51 Albumin/Globulin Ratio 1.2 % 04/20/22 04:51 Triglycerides 148 mg/dL (2-149) 04/19/22 21:15 Cholesterol 127 mg/dL (50-199) 04/19/22 21:15 LDL Cholesterol Direct 52 mg/dL (50-130) 04/19/22 21:15 HDL Cholesterol 52 mg/dL (40-59) 04/19/22 21:15 Cholesterol/HDL Ratio 2.44 % 04/19/22 21:15 Vitamin B12 726.7 pg/mL (211-911) 04/19/22 05:26 Folate 20.00 ng/mL (7.3-26.0) 04/19/22 05:26 TSH 4.550 mlU/mL (0.270-4.200) H 04/19/22 05:26 Free T4 0.81 ng/dL (0.76-1.46) 04/20/22 04:51 Urine Color Yellow (Yellow) 04/19/22 05:30 Urine Turbidity Clear (Clear) 04/19/22 05:30 Specific [place] (Man) 1.010 (1.003-1.030) 04/19/22 05:30 Ur Protein (Man) 1+ mg/dL (Negative) 04/19/22 05:30 Ur Ketones (Man) Negative (Negative) 04/19/22 05:30 Ur Nitrite (Man) Negative (Negative) 04/19/22 05:30 Urine Bilirubin (Man) Small (Negative) 04/19/22 05:30 Urine Ictotest Negative (Negative) 04/19/22 05:30 Leukocyte Esterase (Man) Trace (Negative) 04/19/22 05:30 Urine WBC (Auto) 4.0 /HPF (0.0-6.0) 04/19/22 05:30 Urine RBC (Auto) 1.0 /HPF (0.0-6.0) 04/19/22 05:30 U Epithel Cells (Auto) < 1.0 /HPF (0-13.0) 04/19/22 05:30 Urine Bacteria (Auto) 1+ /HPF (Negative) 04/19/22 05:30 Urine RBC (Manual) Negative (Negative) 04/19/22 05:30 Hyaline Casts 1 /LPF 04/19/22 05:30 Granular Casts 10 /LPF 04/19/22 05:30 Urine Mucus Few /HPF 04/19/22 05:30 Urine Yeast (Budding) Few /HPF 04/19/22 05:30 SARS-CoV-2 (PCR) Negative (Negative) 04/19/22 12:01 Blood Type B POSITIVE 04/19/22 06:00 Antibody Screen Negative 04/19/22 06:00 Crossmatch See Detail 04/19/22 06:00 Microbiology: Microbiology 04/19/22 05:25 Peripheral/Venous Blood Culture - Preliminary NO GROWTH AFTER 24 HOURS 04/19/22 05:26 Peripheral/Venous Blood Culture - Preliminary NO GROWTH AFTER 24 HOURS Rosales/IV: Voiding Method Indwelling Catheter Active Medications - Current Medications Current Medications: Generic Name Dose Route Start Last Admin Trade Name Freq PRN Reason Stop Dose Admin Acetaminophen 650 mg 04/19/22 09:00 Acetaminophen 650 Mg Rect Supp WI Q6H PRN Pain MILD(1-3)/Fever >100.5/FERRARI Albuterol 2.5 mg 04/19/22 09:00 Albuterol 2.5 Mg/3 Ml Nebu IH Q3HRT PRN Shortness Of Breath Albuterol/Ipratropium 1 ampul 04/19/22 09:00 04/20/22 08:15 Ipratropium/Albuterol Sulfate 3 Ml Ampul.Neb IH 1 ampul Q6HRT CONNIE Administration Lipase/Protease/Amylase 1 each 04/19/22 16:00 Lipase 10,500/Protease 25,000/Amylase 43,750 (Units) Dr Cap FEEDTUBE PRN PRN For Clogged Feeding Tube Dextrose 50 ml 04/19/22 08:30 Dextrose 50% In Water (25gm) 50 Ml Syringe IV Q30MIN PRN Hypoglycemia Protocol Hydrophilic Ointment 1 applic 04/19/22 05:15 Lip Therapy Vaseline TP Q2HR PRN Dry Lips Fentanyl Citrate 1,000 mcg in 100 mls @ 2.5 mls/hr 04/19/22 06:00 Fentanyl Drip Premix IV TITR CONNIE Protocol 25 MCG/HR Pantoprazole Sodium 80 mg/ 100 mls @ 10 mls/hr 04/19/22 08:00 04/20/22 06:38 Sodium Chloride IV 04/20/22 15:00 8 mg/hr DIRECT CONNIE 10 mls/hr Administration 8 MG/HR Cefepime HCl 2 gm in 100 mls @ 200 mls/hr 04/19/22 18:00 04/20/22 06:40 Cefepime/Ns 2 Gm/100 Ml IV 200 mls/hr Q12H CONNIE Administration Vancomycin HCl 1,250 mg/ 275 mls @ 166.667 mls/hr 04/20/22 06:00 04/20/22 06:40 Sodium Chloride IV 166.667 mls/hr Q24H CONNIE Administration Sodium Chloride 1,000 mls @ 125 mls/hr 04/19/22 12:00 04/20/22 06:40 Nacl 0.45% 1000 Ml IV 125 mls/hr DIRECT CONNIE Administration Levetiracetam 1,000 mg in 100 mls @ 363.636 mls/hr 04/19/22 18:00 04/20/22 06:38 Keppra 1,000 Mg/Ns 0.75% 100ml IV 04/20/22 11:05 363.636 mls/hr Q12H CONNIE Administration Insulin Glargine 10 units 04/20/22 22:00 Insulin Glargine 100 Units/Ml SUB-Q QHS CONNIE Insulin Human Lispro 0 unit 04/19/22 12:00 04/20/22 06:39 Insulin Lispro 100 Unit/Ml SUB-Q 4 unit Q6HR CONNIE Administration Protocol Lansoprazole 30 mg 04/21/22 10:00 Lansoprazole 30 Mg Solutab FEEDTUBE BID CONNIE Levetiracetam 1,000 mg 04/20/22 22:00 Levetiracetam 500 Mg/5 Ml Oral Liqd FEEDTUBE BID CONNIE Multi-Ingred Cream/Lotion/Oil/Oint 1 applic 04/19/22 05:15 Mineral Oil/Petrolatum, White Ophth Oint 3.5 Gm OU Q4HR PRN Dry Eye(s) Naloxone HCl 0.1 mg 04/19/22 09:00 Naloxone 0.4 Mg/1 Ml Inj IV Q2MIN PRN Res Rate </= 8 or 02 SAT < 92% Nystatin 500,000 unit 04/19/22 20:00 04/20/22 08:55 Nystatin 500,000 Unit/5 Ml Oral Liqd PO 500,000 unit TID CONNIE Administration Senna/Docusate Sodium 1 tab 04/19/22 10:00 04/20/22 09:01 Sennosides/Docusate Sodium 8.6/50 Mg Tab FEEDTUBE 1 tab BID CONNIE Administration Simple Syrup 15 ml 04/19/22 16:00 Simple Syrup 15 Ml FEEDTUBE PRN PRN Hypoglycemia Simple Syrup 30 ml 04/19/22 16:00 Simple Syrup 15 Ml FEEDTUBE PRN PRN Hypoglycemia Sodium Bicarbonate 325 mg 04/19/22 16:00 Sodium Bicarbonate 325 Mg Tab FEEDTUBE PRN PRN For Clogged Feeding Tube Sodium Chloride 10 ml 04/19/22 10:00 04/20/22 09:14 Sodium Chloride 0.9% 10 Ml Flush Syringe IV 10 ml BID CONNIE Administration Sodium Chloride 10 ml 04/19/22 09:00 Sodium Chloride 0.9% 10 Ml Flush Syringe IV PRN PRN LINE FLUSH Nutrition/Malnutrition Assess - Dietary Evaluation Nutrition/Malnutrition Findings: Nutrition Notes Start: 04/19/22 14:07 Freq: Status: Active Protocol: Document 04/19/22 14:07 CARMEN (Rec: 04/19/22 15:37 CARMEN [id number]) Nutrition Notes Need for Assessment generated from: Order,obstetrics gyn physician,MST Initial or Follow up Assessment Current Diagnosis Diabetes,Sepsis,Hypertension, Respiratory Failure,Stroke Other Pertinent Diagnosis COVID-19/Pneumonia pui, UTI, Anemia, GI Bleed, Metabolic Encephalopathy... Current Diet NPO (since 04/19 08:21), TF- Glucerna 1.2 Sarbjit @ 50 ml/hr ( from D 04/19). Labs/Tests 04/19: Na 162, K 3.2, Cl 114.6 , BUN 42, Glu 295, Mg 2.6. Pertinent Medications 04/19: Humalog 4U, others nutritionally unremarkable. Height 5 ft 4 in Weight 61.6 kg [place] Body Weight (kg) 54.54 BMI 23.3 Intake Prior to Admission Good Weight change and time frame Pt states being unsure if loss body weight [place]. Last visit's (01/20/22) anthropometrics: Ht: 5'4", Wt: 73 Kg, BMI: 27.5 Kg/m2. Weight Status Appropriate Subjective/Other Information RD consult for skin risk, risk of malnutrition, difficulty chewing, and write/manage TF assessments. Pt is on permanent NPO, and has PEG-tube in Place poa, according to History & Physical notes. I will prescribe TF to provide Pt with energy/protein needs during LOS. Pt is on Mechanical Ventilation, O2 saturation @ 97%, according to Vital Signs notes. Pt was intubated on 04/19 05: 15, according to History & Physical notes. Pt shows Buttocks skin tear as sign of concern for skin risk at the time, according to History & Physical notes. There are no mentions of concern for difficulty chewing in the chart, and Pt is on NPO, I will disregard this specific consult at this time. Pt shows no signs of concern for risk of malnutrition at the time, according to History & Physical notes. Percent of energy/protein needs met: Prescribed TF-Glucerna 1.2 Sarbjit @ 50 ml/hr provides for energy/protein needs (1,450 Kcal/73 g) during LOS, 98% Kcal; 100% AA. Burn Absent Trauma Absent GI Symptoms None Difficulty In Swallowing Food Allergy No Skin Integrity/Comment Buttocks skin tear. Current % PO Other Minimum of two criteria No Fluid Accumulation N/A Protein-Calorie Malnutrition N\\A #1 Nutrition Diagnosis Inadequate oral intake Etiology Pt is on Mechanical Ventilation. Pt has oropharyngeal Disphagia s/p CVA. As Evidenced by Signs and Symptoms Pt is on NPO, and has PEG-tube poa. Is patient on ventilator? Yes Is Patient Ambulatory and/or Out of Bed No REE-([place] Ject-confined to bed) 1262.616 Kcal/Kg value to use for calculation 24 Approximate Energy Requirements Using 1478 kcal/Kg Calculation Used for Recommendations Kcal/kg Additional Notes Protein: 1-1.2 g/Kg ABW; 62-74 g/day. Fluids: 1 ml/Kcal, or as per MD. Nutrition Intervention Nutrition Support: Start TF-Glucerna 1.2 Sarbjit @ 50 ml/hr. Flush: 85 ml water Q 4 hr, or as per MD. Kcal 1,450 Protein (gm) 73 Carbohydrates (gm) 138 Fat (gm) 73 Fluid (mL) 973 Fiber (gm) 19 % RDI: 98% Kcal; 100% AA. Goal #1 Provide at least 75% of energy /protein needs through Enteral Feeding during LOS. Follow-Up By: 04/21/22 Additional Comments Start monitoring TF tolerance and BM. <RO WATTS - Last Filed: 04/20/22 20:05> Assessment and Plan Assessment and plan: I saw and evaluated the patient. I agree with the findings and the plan of care as documented in the Nurse Practitioner's~note, with the following corrections and additions. Hospitalist Physical - Constitutional Vitals: Temp Pulse Resp BP Pulse Ox 98.6 F 94 H 23 130/68 100 04/20/22 16:00 04/20/22 20:01 04/20/22 20:01 04/20/22 20:01 04/20/22 20:01 HEART Score - HEART Score Troponin: Troponin T 0.064 ng/mL (0.00-0.029) H 04/20/22 02:11 Results - Labs CBC & Chem 7: 04/20/22 04:51 04/20/22 13:57 Labs: Laboratory Last Values WBC 17.8 K/mm3 (4.5-11.0) H 04/20/22 04:51 RBC 2.91 M/mm3 (3.65-5.03) L 04/20/22 04:51 Hgb 8.6 gm/dl (10.1-14.3) L 04/20/22 04:51 Hct 27.9 % (30.3-42.9) L 04/20/22 04:51 MCV 96 fl (79-97) 04/20/22 04:51 MCH 29 pg (28-32) 04/20/22 04:51 MCHC 31 % (30-34) 04/20/22 04:51 RDW 16.5 % (13.2-15.2) H 04/20/22 04:51 Plt Count 314 K/mm3 (140-440) 04/20/22 04:51 Add Manual Diff Complete 04/20/22 04:51 Total Counted 100 04/20/22 04:51 Seg Neutrophils % Circuit Breaker Supervisor 04/19/22 05:26 Seg Neuts % (Manual) 94.0 % (40.0-70.0) H 04/20/22 04:51 Band Neutrophils % 0 % 04/20/22 04:51 Lymphocytes % (Manual) 6.0 % (13.4-35.0) L 04/20/22 04:51 Reactive Lymphs % (Man) 0 % 04/20/22 04:51 Monocytes % (Manual) 0 % (0.0-7.3) 04/20/22 04:51 Eosinophils % (Manual) 0 % (0.0-4.3) 04/20/22 04:51 Basophils % (Manual) 0 % (0.0-1.8) 04/20/22 04:51 Metamyelocytes % 0 % 04/20/22 04:51 Myelocytes % 0 % 04/20/22 04:51 Promyelocytes % 0 % 04/20/22 04:51 Blast Cells % 0 % 04/20/22 04:51 Nucleated RBC % 1.0 % (0.0-0.9) H 04/20/22 04:51 Seg Neutrophils # Man 16.7 K/mm3 (1.8-7.7) H 04/20/22 04:51 Band Neutrophils # 0.0 K/mm3 04/20/22 04:51 Lymphocytes # (Manual) 1.1 K/mm3 (1.2-5.4) L 04/20/22 04:51 Abs React Lymphs (Man) 0.0 K/mm3 04/20/22 04:51 Monocytes # (Manual) 0.0 K/mm3 (0.0-0.8) 04/20/22 04:51 Eosinophils # (Manual) 0.0 K/mm3 (0.0-0.4) 04/20/22 04:51 Basophils # (Manual) 0.0 K/mm3 (0.0-0.1) 04/20/22 04:51 Metamyelocytes # 0.0 K/mm3 04/20/22 04:51 Myelocytes # 0.0 K/mm3 04/20/22 04:51 Promyelocytes # 0.0 K/mm3 04/20/22 04:51 Blast Cells # 0.0 K/mm3 04/20/22 04:51 WBC Morphology Not Reportable 04/20/22 04:51 Hypersegmented Neuts Not Reportable 04/20/22 04:51 Hyposegmented Neuts Not Reportable 04/20/22 04:51 Hypogranular Neuts Not Reportable 04/20/22 04:51 Smudge Cells Not Reportable 04/20/22 04:51 Toxic Granulation Not Reportable 04/20/22 04:51 Toxic Vacuolation Not Reportable 04/20/22 04:51 Dohle Bodies Not Reportable 04/20/22 04:51 Pelger-Huet Anomaly Not Reportable 04/20/22 04:51 Marina Rods Not Reportable 04/20/22 04:51 Platelet Estimate Consistent w auto 04/20/22 04:51 Clumped Platelets Not Reportable 04/20/22 04:51 Plt Clumps, EDTA Not Reportable 04/20/22 04:51 Large Platelets Not Reportable 04/20/22 04:51 Giant Platelets Not Reportable 04/20/22 04:51 Platelet Satelliting Not Reportable 04/20/22 04:51 Plt Morphology Comment Not Reportable 04/20/22 04:51 RBC Morphology Not Reportable 04/20/22 04:51 Dimorphic RBCs Not Reportable 04/20/22 04:51 Polychromasia Few 04/20/22 04:51 Hypochromasia Not Reportable 04/20/22 04:51 Poikilocytosis Not Reportable 04/20/22 04:51 Anisocytosis Not Reportable 04/20/22 04:51 Microcytosis Not Reportable 04/20/22 04:51 Macrocytosis Not Reportable 04/20/22 04:51 Spherocytes Not Reportable 04/20/22 04:51 Pappenheimer Bodies Not Reportable 04/20/22 04:51 Sickle Cells Not Reportable 04/20/22 04:51 Target Cells Not Reportable 04/20/22 04:51 Tear Drop Cells Not Reportable 04/20/22 04:51 Ovalocytes Not Reportable 04/20/22 04:51 Stomatocytes 1+ 04/20/22 04:51 Helmet Cells Not Reportable 04/20/22 04:51 Martin-[place] Bodies Not Reportable 04/20/22 04:51 Gautier Rings Not Reportable 04/20/22 04:51 Murdock Cells Not Reportable 04/20/22 04:51 Bite Cells Not Reportable 04/20/22 04:51 Crenated Cell Not Reportable 04/20/22 04:51 Elliptocytes Not Reportable 04/20/22 04:51 Acanthocytes (Spur) Not Reportable 04/20/22 04:51 Rouleaux Not Reportable 04/20/22 04:51 Hemoglobin C Crystals Not Reportable 04/20/22 04:51 Schistocytes Not Reportable 04/20/22 04:51 Malaria parasites Not Reportable 04/20/22 04:51 Kevin Bodies Not Reportable 04/20/22 04:51 Hem Pathologist Commnt No 04/20/22 04:51 PT 15.5 Sec. (12.2-14.9) H 04/19/22 05:26 INR 1.08 (0.87-1.13) 04/19/22 05:26 APTT < 20.0 Sec. (24.2-36.6) L 04/19/22 05:26 ABG pH 7.499 pH Units (7.350-7.450) H 04/20/22 04:45 ABG pCO2 45.1 mm Hg 04/20/22 04:45 ABG pO2 334.3 mm Hg (80.0-90.0) H 04/20/22 04:45 ABG HCO3 34.3 mmol/L (20.0-26.0) H 04/20/22 04:45 ABG O2 Saturation 99.5 % (95.0-99.0) H 04/20/22 04:45 ABG O2 Content 14.5 (0.0-44) 04/20/22 04:45 ABG Base Excess 10.1 mmol/L (-2.0-3.0) H 04/20/22 04:45 ABG Hemoglobin 9.9 gm/dl (12.0-16.0) L 04/20/22 04:45 ABG Carboxyhemoglobin 1.3 % (0.0-5.0) 04/20/22 04:45 ABG Methemoglobin 0.6 % (0.0-1.5) 04/20/22 04:45 Oxyhemoglobin 97.7 % (95.0-99.0) 04/20/22 04:45 FiO2 90 % 04/20/22 04:45 Sodium 164 mmol/L (137-145) H* 04/20/22 13:57 Potassium 3.9 mmol/L (3.6-5.0) D 04/20/22 13:57 Chloride 117.1 mmol/L (98-107) H 04/20/22 13:57 Carbon Dioxide 23 mmol/L (22-30) 04/20/22 13:57 Anion Gap 28 mmol/L 04/20/22 13:57 BUN 23 mg/dL (7-17) H 04/20/22 13:57 Creatinine 0.5 mg/dL (0.6-1.2) L 04/20/22 13:57 Estimated GFR > 60 ml/min 04/20/22 13:57 BUN/Creatinine Ratio 46 % 04/20/22 13:57 Glucose 177 mg/dL (65-100) H 04/20/22 13:57 POC Glucose 204 mg/dL (70-105) H 04/20/22 16:42 Lactic Acid 2.50 mmol/L (0.7-2.0) H* 04/20/22 13:57 Calcium 8.5 mg/dL (8.4-10.2) 04/20/22 13:57 Phosphorus 2.40 mg/dL (2.5-4.5) L 04/20/22 13:57 Magnesium 2.20 mg/dL (1.7-2.3) 04/20/22 13:57 Iron 43 ug/dL (37-170) 04/19/22 05:26 TIBC 252 mcg/dL (250-450) 04/19/22 05:26 Ferritin 142.5 ng/mL (10.0-200.0) 04/19/22 05:26 Total Bilirubin 0.40 mg/dL (0.1-1.2) 04/20/22 04:51 AST 33 units/L (5-40) 04/20/22 04:51 ALT 20 units/L (7-56) 04/20/22 04:51 Alkaline Phosphatase 72 units/L (35-129) 04/20/22 04:51 Total Creatine Kinase 63 units/L (30-135) 04/19/22 05:26 Troponin T 0.064 ng/mL (0.00-0.029) H 04/20/22 02:11 Total Protein 6.7 g/dL (6.3-8.2) 04/20/22 04:51 Albumin 3.7 g/dL (3.9-5) L 04/20/22 04:51 Albumin/Globulin Ratio 1.2 % 04/20/22 04:51 Triglycerides 148 mg/dL (2-149) 04/19/22 21:15 Cholesterol 127 mg/dL (50-199) 04/19/22 21:15 LDL Cholesterol Direct 52 mg/dL (50-130) 04/19/22 21:15 HDL Cholesterol 52 mg/dL (40-59) 04/19/22 21:15 Cholesterol/HDL Ratio 2.44 % 04/19/22 21:15 Vitamin B12 726.7 pg/mL (211-911) 04/19/22 05:26 Folate 20.00 ng/mL (7.3-26.0) 04/19/22 05:26 TSH 4.550 mlU/mL (0.270-4.200) H 04/19/22 05:26 Free T4 0.81 ng/dL (0.76-1.46) 04/20/22 04:51 Urine Color Yellow (Yellow) 04/19/22 05:30 Urine Turbidity Clear (Clear) 04/19/22 05:30 Specific [place] (Man) 1.010 (1.003-1.030) 04/19/22 05:30 Ur Protein (Man) 1+ mg/dL (Negative) 04/19/22 05:30 Ur Ketones (Man) Negative (Negative) 04/19/22 05:30 Ur Nitrite (Man) Negative (Negative) 04/19/22 05:30 Urine Bilirubin (Man) Small (Negative) 04/19/22 05:30 Urine Ictotest Negative (Negative) 04/19/22 05:30 Leukocyte Esterase (Man) Trace (Negative) 04/19/22 05:30 Urine WBC (Auto) 4.0 /HPF (0.0-6.0) 04/19/22 05:30 Urine RBC (Auto) 1.0 /HPF (0.0-6.0) 04/19/22 05:30 U Epithel Cells (Auto) < 1.0 /HPF (0-13.0) 04/19/22 05:30 Urine Bacteria (Auto) 1+ /HPF (Negative) 04/19/22 05:30 Urine RBC (Manual) Negative (Negative) 04/19/22 05:30 Hyaline Casts 1 /LPF 04/19/22 05:30 Granular Casts /LPF 04/19/22 05:30 Urine Mucus Few /HPF 04/19/22 05:30 Urine Yeast (Budding) Few /HPF 04/19/22 05:30 SARS-CoV-2 (PCR) Negative (Negative) 04/19/22 12:01 Blood Type B POSITIVE 04/19/22 06:00 Antibody Screen Negative 04/19/22 06:00 Crossmatch See Detail 04/19/22 06:00 Microbiology: Microbiology 04/19/22 05:10 Tracheal Aspirate Sputum Culture - Preliminary 04/19/22 06:29 Tracheal Aspirate Sputum Culture - Preliminary 04/19/22 05:25 Peripheral/Venous Blood Culture - Preliminary NO GROWTH AFTER 24 HOURS 04/19/22 05:26 Peripheral/Venous Blood Culture - Preliminary NO GROWTH AFTER 24 HOURS Rosales/IV: Voiding Method Indwelling Catheter Active Medications - Current Medications Current Medications: Generic Name Dose Route Start Last Admin Trade Name Freq PRN Reason Stop Dose Admin Acetaminophen 650 mg 04/19/22 09:00 Acetaminophen 650 Mg Rect Supp [place] Q6H PRN Pain MILD(1-3)/Fever >100.5/FERRARI Albuterol 2.5 mg 04/19/22 09:00 Albuterol 2.5 Mg/3 Ml Nebu IH Q3HRT PRN Shortness Of Breath Albuterol/Ipratropium 1 ampul 04/19/22 09:00 04/20/22 20:01 Ipratropium/Albuterol Sulfate 3 Ml Ampul.Neb IH 1 ampul Q6HRT CONNIE Administration Amlodipine Besylate 10 mg 04/21/22 10:00 Amlodipine 10 Mg Tab PO DAILY CONNIE Lipase/Protease/Amylase 1 each 04/19/22 16:00 Lipase 10,500/Protease 25,000/Amylase 43,750 (Units) Dr Cap FEEDTUBE PRN PRN For Clogged Feeding Tube Dextrose 50 ml 04/19/22 08:30 Dextrose 50% In Water (25gm) 50 Ml Syringe IV Q30MIN PRN Hypoglycemia Protocol Hydrophilic Ointment 1 applic 04/19/22 05:15 Lip Therapy Vaseline TP Q2HR PRN Dry Lips Fentanyl Citrate 1,000 mcg in 100 mls @ 2.5 mls/hr 04/19/22 06:00 Fentanyl Drip Premix IV TITR CONNIE Protocol 25 MCG/HR Cefepime HCl 2 gm in 100 mls @ 200 mls/hr 04/19/22 18:00 04/20/22 18:13 Cefepime/Ns 2 Gm/100 Ml IV 200 mls/hr Q12H CONNIE Administration Vancomycin HCl 1,250 mg/ 275 mls @ 166.667 mls/hr 04/20/22 06:00 04/20/22 06:40 Sodium Chloride IV 166.667 mls/hr Q24H CONNIE Administration Dextrose 1,000 mls @ 75 mls/hr 04/20/22 18:00 04/20/22 18:14 D5w IV 04/22/22 07:19 75 mls/hr DIRECT CONNIE Administration Insulin Glargine 10 units 04/20/22 22:00 Insulin Glargine 100 Units/Ml SUB-Q QHS CONNIE Insulin Human Lispro 0 unit 04/19/22 12:00 04/20/22 18:14 Insulin Lispro 100 Unit/Ml SUB-Q 4 unit Q6HR CONNIE Administration Protocol Lansoprazole 30 mg 04/21/22 10:00 Lansoprazole 30 Mg Solutab FEEDTUBE BID CONNIE Levetiracetam 1,000 mg 04/20/22 22:00 Levetiracetam 500 Mg/5 Ml Oral Liqd FEEDTUBE BID [facility] Metoprolol Tartrate 12.5 mg 04/20/22 22:00 Metoprolol Tartrate 25 Mg Tab PO BID [facility] Multi-Ingred Cream/Lotion/Oil/Oint 1 applic 04/19/22 05:15 Mineral Oil/Petrolatum, White Ophth Oint 3.5 Gm OU Q4HR PRN Dry Eye(s) Naloxone HCl 0.1 mg 04/19/22 09:00 Naloxone 0.4 Mg/1 Ml Inj IV Q2MIN PRN Res Rate </= 8 or 02 SAT < 92% Nystatin 500,000 unit 04/19/22 20:00 04/20/22 15:14 Nystatin 500,000 Unit/5 Ml Oral Liqd PO 500,000 unit TID CONNIE Administration Senna/Docusate Sodium 1 tab 04/19/22 10:00 04/20/22 09:01 Sennosides/Docusate Sodium 8.6/50 Mg Tab FEEDTUBE 1 tab BID CONNIE Administration Simple Syrup 15 ml 04/19/22 16:00 Simple Syrup 15 Ml FEEDTUBE PRN PRN Hypoglycemia Simple Syrup 30 ml 04/19/22 16:00 Simple Syrup 15 Ml FEEDTUBE PRN PRN Hypoglycemia Sodium Bicarbonate 325 mg 04/19/22 16:00 Sodium Bicarbonate 325 Mg Tab FEEDTUBE PRN PRN For Clogged Feeding Tube Sodium Chloride 10 ml 04/19/22 10:00 04/20/22 09:14 Sodium Chloride 0.9% 10 Ml Flush Syringe IV 10 ml BID CONNIE Administration Sodium Chloride 10 ml 04/19/22 09:00 Sodium Chloride 0.9% 10 Ml Flush Syringe IV PRN PRN LINE FLUSH Sodium Phosphate 250 mg 04/20/22 20:00 K-Phos Neutral 250 Mg Tab PO 04/21/22 12:01 Q6HR CONNIE Nutrition/Malnutrition Assess - Dietary Evaluation Nutrition/Malnutrition Findings: Nutrition Notes Start: 04/19/22 14:07 Freq: Status: Active Protocol: Document 04/19/22 14:07 CARMEN (Rec: 04/19/22 15:37 CARMEN [id number]) Nutrition Notes Need for Assessment generated from: MD Order,obstetrics gyn physician,MST Initial or Follow up Assessment Current Diagnosis Diabetes,Sepsis,Hypertension, Respiratory Failure,Stroke Other Pertinent Diagnosis COVID-19/Pneumonia pui, UTI, Anemia, GI Bleed, Metabolic Encephalopathy... Current Diet NPO (since 04/19 08:21), TF- Glucerna 1.2 Sarbjit @ 50 ml/hr ( from D 04/19). Labs/Tests 04/19: Na 162, K 3.2, Cl 114.6 , BUN 42, Glu 295, Mg 2.6. Pertinent Medications 04/19: Humalog 4U, others nutritionally unremarkable. Height 5 ft 4 in Weight 61.6 kg [place] Body Weight (kg) 54.54 BMI 23.3 Intake Prior to Admission Good Weight change and time frame Pt states being unsure if loss body weight [place]. Last visit's (01/20/22) anthropometrics: Ht: 5'4", Wt: 73 Kg, BMI: 27.5 Kg/m2. Weight Status Appropriate Subjective/Other Information RD consult for skin risk, risk of malnutrition, difficulty chewing, and write/manage TF assessments. Pt is on permanent NPO, and has PEG-tube in Place poa, according to History & Physical notes. I will prescribe TF to provide Pt with energy/protein needs during LOS. Pt is on Mechanical Ventilation, O2 saturation @ 97%, according to Vital Signs notes. Pt was intubated on 04/19 05: 15, according to History & Physical notes. Pt shows Buttocks skin tear as sign of concern for skin risk at the time, according to History & Physical notes. There are no mentions of concern for difficulty chewing in the chart, and Pt is on NPO, I will disregard this specific consult at this time. Pt shows no signs of concern for risk of malnutrition at the time, according to History & Physical notes. Percent of energy/protein needs met: Prescribed TF-Glucerna 1.2 Sarbjit @ 50 ml/hr provides for energy/protein needs (1,450 Kcal/73 g) during LOS, 98% Kcal; 100% AA. Burn Absent Trauma Absent GI Symptoms None Difficulty In Swallowing Food Allergy No Skin Integrity/Comment Buttocks skin tear. Current % PO Other Minimum of two criteria No Fluid Accumulation N/A Protein-Calorie Malnutrition N\\A #1 Nutrition Diagnosis Inadequate oral intake Etiology Pt is on Mechanical Ventilation. Pt has oropharyngeal Disphagia s/p CVA. As Evidenced by Signs and Symptoms Pt is on NPO, and has PEG-tube poa. Is patient on ventilator? Yes Is Patient Ambulatory and/or Out of Bed No REE-([facility]-confined to bed) 1262.616 Kcal/Kg value to use for calculation 24 Approximate Energy Requirements Using 1478 kcal/Kg Calculation Used for Recommendations Kcal/kg Additional Notes Protein: 1-1.2 g/Kg ABW; 62-74 g/day. Fluids: 1 ml/Kcal, or as per MD. Nutrition Intervention Nutrition Support: Start TF-Glucerna 1.2 Sarbjit @ 50 ml/hr. Flush: 85 ml water Q 4 hr, or as per MD. Kcal 1,450 Protein (gm) 73 Carbohydrates (gm) 138 Fat (gm) 73 Fluid (mL) 973 Fiber (gm) 19 % RDI: 98% Kcal; 100% AA. Goal #1 Provide at least 75% of energy /protein needs through Enteral Feeding during LOS. Follow-Up By: 04/21/22 Additional Comments Start monitoring TF tolerance and BM.
--- NOTE | 2022-04-20 11:46 | Consultation ---
History of Present Illness - Reason for Consult Consult date: 04/20/22 hypernatremia - History of Present Illness The patient is an 87 year old female with history notable for HTN, Seizure disorder, prior CVA, Dementia and [facility] resident who was [place] [facility] to [facility] ED 04/19/22 with hypoxia, weakness. Patient was not able to provide any history and there was no family member at the bedside. Upon evaluation in the ER, pt was febrile, tachycardic and subsequently intubated. She was found to have leukocytosis, severe anemia concerning for GI bleed. Chest X-ray showed left-sided pneumonia versus atelectasis. Labs notable for multiple electrolyte abnormalities. Nephrology consulted for further eval and treatment. Past History Past Medical History: CAD, diabetes, hypertension, hyperlipidemia, stroke Past Surgical History: Other (FEEDING TUBE) Social history: full code, other (LONGTERM) Family history: no significant family history Medications and Allergies Allergies Allergy/AdvReac Type Severity Reaction Status Date / Time No Known Allergies Allergy Verified 03/15/21 10:30 Home Medications Medication Instructions Recorded Confirmed Last Taken Type Ferrous Sulfate [Iron 325 MG] 325 mg PO DAILY 03/17/21 04/19/22 Unknown History Lovastatin [Altoprev] 40 mg PO DAILY 03/17/21 04/19/22 Unknown History allopurinoL [Zyloprim] 300 mg PO QDAY 03/17/21 04/19/22 Unknown History amLODIPine 10 mg PO DAILY 03/17/21 04/19/22 Unknown History Aspirin [Adult Aspirin] 81 mg PO DAILY #30 tablet. 03/22/21 04/19/22 Unknown Rx Linagliptin [Tradjenta] 5 mg PO QAMDIAB #30 tablet 03/22/21 04/19/22 Unknown Rx Insulin Glargine [Lantus VIAL] 10 units SUB-Q QHS #30 ml 11/04/21 04/19/22 Unknown Rx Lacosamide [Vimpat] 100 mg PO Q12HR #60 tablet 11/04/21 04/19/22 Unknown Rx Sennosides/Docusate [Senokot S] 2 tab FEEDTUBE BID #30 tablet 11/04/21 04/19/22 Unknown Rx levETIRAcetam [Keppra] 1,000 mg FEEDTUBE BID #600 ml 11/04/21 04/19/22 Unknown Rx Cholecalciferol Vit D3 [Vitamin D3 1,000 unit PO QDAY tablet 01/11/22 04/19/22 Unknown Rx 1,000 UNIT TAB] Metoprolol [Lopressor TAB] 25 mg PO Q8HR 30 Days #90 tablet 01/11/22 04/19/22 Un known Rx Acetaminophen [Acetaminophen TAB] 650 mg PO Q4H PRN tablet 01/19/22 04/19/22 Unknown Rx Famotidine [Zantac-360 20 mg PO QDAY 04/19/22 04/19/22 Unknown History (Famotidine)] Insulin Lispro [Admelog] See Protocol SQ ACHS 04/19/22 04/19/22 Unknown History Magnesium Hydroxide [Milk of 400 mg PO QDAY PRN 04/19/22 04/19/22 Unknown History Magnesia] traMADoL [Ultram] 50 mg PO Q6HR PRN 04/19/22 04/19/22 Unknown History Active Meds: Active Medications Acetaminophen (Acetaminophen 650 Mg Rect Supp) 650 mg MA Q6H PRN PRN Reason: Pain MILD(1-3)/Fever >100.5/FERRARI Albuterol (Albuterol 2.5 Mg/3 Ml Nebu) 2.5 mg IH Q3HRT PRN PRN Reason: Shortness Of Breath Albuterol/Ipratropium (Ipratropium/Albuterol Sulfate 3 Ml Ampul.Neb) 1 ampul IH Q6HRT CONNIE Last Admin: 04/20/22 08:15 Dose: 1 ampul Lipase/Protease/Amylase (Lipase 10,500/Protease 25,000/Amylase 43,750 (Units) Dr Cap) 1 each FEEDTUBE PRN PRN PRN Reason: For Clogged Feeding Tube Dextrose (Dextrose 50% In Water (25gm) 50 Ml Syringe) 50 ml IV Q30MIN PRN; Protocol PRN Reason: Hypoglycemia Hydrophilic Ointment (Lip Therapy Vaseline) 1 applic TP Q2HR PRN PRN Reason: Dry Lips Fentanyl Citrate (Fentanyl Drip Premix) 1,000 mcg in 100 mls @ 2.5 mls/hr IV TITR CONNIE; Protocol Pantoprazole Sodium 80 mg/ (Sodium Chloride) 100 mls @ 10 mls/hr IV DIRECT CONNIE Stop: 04/20/22 15:00 Last Admin: 04/20/22 06:38 Dose: 8 mg/hr, 10 mls/hr Cefepime HCl (Cefepime/Ns 2 Gm/100 Ml) 2 gm in 100 mls @ 200 mls/hr IV Q12H [facility] Last Admin: 04/20/22 06:40 Dose: 200 mls/hr Vancomycin HCl 1,250 mg/ (Sodium Chloride) 275 mls @ 166.667 mls/hr IV Q24H [facility] Last Admin: 04/20/22 06:40 Dose: 166.667 mls/hr Sodium Chloride (Nacl 0.45% 1000 Ml) 1,000 mls @ 100 mls/hr IV DIRECT CONNIE Last Admin: 04/20/22 06:40 Dose: 125 mls/hr Insulin Glargine (Insulin Glargine 100 Units/Ml) 10 units SUB-Q QHS CONNIE Insulin Human Lispro (Insulin Lispro 100 Unit/Ml) 0 unit SUB-Q Q6HR [facility]; Protocol Last Admin: 04/20/22 06:39 Dose: 4 unit Lansoprazole (Lansoprazole 30 Mg Solutab) 30 mg FEEDTUBE BID [facility] Levetiracetam (Levetiracetam 500 Mg/5 Ml Oral Liqd) 1,000 mg FEEDTUBE BID [facility] Multi-Ingred Cream/Lotion/Oil/Oint (Mineral Oil/Petrolatum, White Ophth Oint 3.5 Gm) 1 applic OU Q4HR PRN PRN Reason: Dry Eye(s) Naloxone HCl (Naloxone 0.4 Mg/1 Ml Inj) 0.1 mg IV Q2MIN PRN PRN Reason: Res Rate </= 8 or 02 SAT < 92% Nystatin (Nystatin 500,000 Unit/5 Ml Oral Liqd) 500,000 unit PO TID [facility] Last Admin: 04/20/22 08:55 Dose: 500,000 unit Potassium Chloride (Potassium Chloride 20 Meq Packet) 40 meq FEEDTUBE ONCE ONE Stop: 04/20/22 11:46 Senna/Docusate Sodium (Sennosides/Docusate Sodium 8.6/50 Mg Tab) 1 tab FEEDTUBE BID [facility] Last Admin: 04/20/22 09:01 Dose: 1 tab Simple Syrup (Simple Syrup 15 Ml) 15 ml FEEDTUBE PRN PRN PRN Reason: Hypoglycemia Simple Syrup (Simple Syrup 15 Ml) 30 ml FEEDTUBE PRN PRN PRN Reason: Hypoglycemia Sodium Bicarbonate (Sodium Bicarbonate 325 Mg Tab) 325 mg FEEDTUBE PRN PRN PRN Reason: For Clogged Feeding Tube Sodium Chloride (Sodium Chloride 0.9% 10 Ml Flush Syringe) 10 ml IV BID CONNIE Last Admin: 04/20/22 09:14 Dose: 10 ml Sodium Chloride (Sodium Chloride 0.9% 10 Ml Flush Syringe) 10 ml IV PRN PRN PRN Reason: LINE FLUSH Review of Systems ROS unobtainable: due to endotracheal tube Exam - Vital Signs Vital signs: Vital Signs Pulse BP Pulse Ox 129 H 116/56 99 04/19/22 05:17 04/19/22 05:17 04/19/22 05:17 Results - Lab Results 04/20/22 04:51 04/20/22 13:57 Most recent lab results ABG pH 7.499 pH Units (7.350-7.450) H 04/20/22 04:45 ABG pCO2 45.1 mm Hg 04/20/22 04:45 ABG pO2 334.3 mm Hg (80.0-90.0) H 04/20/22 04:45 ABG HCO3 34.3 mmol/L (20.0-26.0) H 04/20/22 04:45 ABG O2 Saturation 99.5 % (95.0-99.0) H 04/20/22 04:45 Calcium 8.7 mg/dL (8.4-10.2) 04/20/22 04:51 Magnesium 2.60 mg/dL (1.7-2.3) H 04/19/22 05:26 Assessment and Plan 1. Hypernatremia: Hyponatremia secondary to dehydration. Hypotonic IV fluids. Follow Sodium level. 2. FEN: Hypokalemia, replete K, monitor. Replete lytes as needed. Monitor lytes and volume status. 3. Acute Resp failure: Currently on vent. 4. SIRS vs Sepsis: On abx. Followed by ID. 5. Severe anemia: S/p pRBC. GI evaluated, signed off. On PPI drip. 6. Acute metabolic encephalopathy, POA: H/o Dementia. Monitor. D/w ICU team. Subjective: Patient was seen and examined at the bedside. Examination: General appearance: well-developed, appears stated age, no distress, intubated, on vent HEENT: atraumatic, no icterus Neck: trachea midline Respiratory: coarse breath sounds Heart: S1S2, regular, no murmur Abdomen: soft, bowel sounds heard, NT Integumentary: no obvious rash Neurologic: unresponsive Ext: no edema
[2022-04-20] MEDS ORDERED: POTASSIUM CHLORIDE 20 MEQ PACKET FEEDTUBE SCH (12:45)
[2022-04-20] MEDS: FREE WATER PO SCH ×2 (14:43→18:13)
--- NOTE | 2022-04-20 14:59 | Consultation ---
History of Present Illness Consult date: 04/20/22 Consult reason: elevated troponin History of present illness: The patient is an 87-year-old woman, halfway resident with advanced dementia, brought to the hospital with shortness of breath, lethargy and multiple constitutional symptoms. Laboratory values in the hospital where acutely abnormal with a leukocytosis of 19,000, severe hypernatremia of 163, hypokalemia of 2.6, and marked lactic acidosis. She is currently on the vent in the ICU, undergoing work-up and management of sepsis and dehydration. In this milieu, the troponin levels were borderline at 0.05 and 0.06, unchanged on serial levels. Cardiology consultation was requested for the troponin levels. 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 Chest x-ray showed a mid left lung opacity. There was no interstitial edema or heart failure. Previous cardiac work-up including 2 echocardiograms in this hospital in the past 6 months both documented normal left ventricular systolic function with ejection fraction 55 to 60%. Past History Past Medical History: CAD, diabetes, hypertension, hyperlipidemia, stroke Past Surgical History: Other (FEEDING TUBE) Social history: full code, other (GROUP HOME) Family history: no significant family history Medications and Allergies Allergies Allergy/AdvReac Type Severity Reaction Status Date / Time No Known Allergies Allergy Verified 03/15/21 10:30 Home Medications Medication Instructions Recorded Confirmed Last Taken Type Ferrous Sulfate [Iron 325 MG] 325 mg PO DAILY 03/17/21 04/19/22 Unknown History Lovastatin [Altoprev] 40 mg PO DAILY 03/17/21 04/19/22 Unknown History allopurinoL [Zyloprim] 300 mg PO QDAY 03/17/21 04/19/22 Unknown History amLODIPine 10 mg PO DAILY 03/17/21 04/19/22 Unknown History Aspirin [Adult Aspirin] 81 mg PO DAILY #30 tablet. 03/22/21 04/19/22 Unknown Rx Linagliptin [Tradjenta] 5 mg PO QAMDIAB #30 tablet 03/22/21 04/19/22 Unknown Rx Insulin Glargine [Lantus VIAL] 10 units SUB-Q QHS #30 ml 11/04/21 04/19/22 Unknown Rx Lacosamide [Vimpat] 100 mg PO Q12HR #60 tablet 11/04/21 04/19/22 Unknown Rx Sennosides/Docusate [Senokot S] 2 tab FEEDTUBE BID #30 tablet 11/04/21 04/19/22 Unknown Rx levETIRAcetam [Keppra] 1,000 mg FEEDTUBE BID #600 ml 11/04/21 04/19/22 Unknown Rx Cholecalciferol Vit D3 [Vitamin D3 1,000 unit PO QDAY tablet 01/11/22 04/19/22 Unknown Rx 1,000 UNIT TAB] Metoprolol [Lopressor TAB] 25 mg PO Q8HR 30 Days #90 tablet 01/11/22 04/19/22 Unknown Rx Acetaminophen [Acetaminophen TAB] 650 mg PO Q4H PRN tablet 01/19/22 04/19/22 Unknown Rx Famotidine [Zantac-360 20 mg PO QDAY 04/19/22 04/19/22 Unknown History (Famotidine)] Insulin Lispro [Admelog] See Protocol SQ ACHS 04/19/22 04/19/22 Unknown History Magnesium Hydroxide [Milk of 400 mg PO QDAY PRN 04/19/22 04/19/22 Unknown History Magnesia] traMADoL [Ultram] 50 mg PO Q6HR PRN 04/19/22 04/19/22 Unknown History Active Meds: Active Medications Acetaminophen (Acetaminophen 650 Mg Rect Supp) 650 mg WA Q6H PRN PRN Reason: Pain MILD(1-3)/Fever >100.5/FERRARI Albuterol (Albuterol 2.5 Mg/3 Ml Nebu) 2.5 mg IH Q3HRT PRN PRN Reason: Shortness Of Breath Albuterol/Ipratropium (Ipratropium/Albuterol Sulfate 3 Ml Ampul.Neb) 1 ampul IH Q6HRT CONNIE Last Admin: 04/20/22 08:15 Dose: 1 ampul Lipase/Protease/Amylase (Lipase 10,500/Protease 25,000/Amylase 43,750 (Units) Dr Collier) 1 each FEEDTUBE PRN PRN PRN Reason: For Clogged Feeding Tube Dextrose (Dextrose 50% In Water (25gm) 50 Ml Syringe) 50 ml IV Q30MIN PRN; Protocol PRN Reason: Hypoglycemia Hydrophilic Ointment (Lip Therapy Vaseline) 1 applic TP Q2HR PRN PRN Reason: Dry Lips Fentanyl Citrate (Fentanyl Drip Premix) 1,000 mcg in 100 mls @ 2.5 mls/hr IV TITR CONNIE; Protocol Pantoprazole Sodium 80 mg/ (Sodium Chloride) 100 mls @ 10 mls/hr IV DIRECT CONNIE Stop: 04/20/22 15:00 Last Admin: 04/20/22 06:38 Dose: 8 mg/hr, 10 mls/hr Cefepime HCl (Cefepime/Ns 2 Gm/100 Ml) 2 gm in 100 mls @ 200 mls/hr IV Q12H [facility] Last Admin: 04/20/22 06:40 Dose: 200 mls/hr Vancomycin HCl 1,250 mg/ (Sodium Chloride) 275 mls @ 166.667 mls/hr IV Q24H [facility] Last Admin: 04/20/22 06:40 Dose: 166.667 mls/hr Sodium Chloride (Nacl 0.45% 1000 Ml) 1,000 mls @ 100 mls/hr IV DIRECT CONNIE Last Admin: 04/20/22 06:40 Dose: 125 mls/hr Insulin Glargine (Insulin Glargine 100 Units/Ml) 10 units SUB-Q QHS [facility] Insulin Human Lispro (Insulin Lispro 100 Unit/Ml) 0 unit SUB-Q Q6HR [facility]; Protocol Last Admin: 04/20/22 12:17 Dose: Not Given Lansoprazole (Lansoprazole 30 Mg Solutab) 30 mg FEEDTUBE BID [facility] Levetiracetam (Levetiracetam 500 Mg/5 Ml Oral Liqd) 1,000 mg FEEDTUBE BID [facility] Multi-Ingred Cream/Lotion/Oil/Oint (Mineral Oil/Petrolatum, White Ophth Oint 3.5 Gm) 1 applic OU Q4HR PRN PRN Reason: Dry Eye(s) Naloxone HCl (Naloxone 0.4 Mg/1 Ml Inj) 0.1 mg IV Q2MIN PRN PRN Reason: Res Rate </= 8 or 02 SAT < 92% Nystatin (Nystatin 500,000 Unit/5 Ml Oral Liqd) 500,000 unit PO TID [facility] Last Admin: 04/20/22 08:55 Dose: 500,000 unit Potassium Chloride (Potassium Chloride 20 Meq Packet) 40 meq FEEDTUBE ONCE@1245 [facility] Stop: 04/20/22 16:45 Last Admin: 04/20/22 12:41 Dose: 40 meq Senna/Docusate Sodium (Sennosides/Docusate Sodium 8.6/50 Mg Tab) 1 tab FEEDTUBE BID [facility] Last Admin: 04/20/22 09:01 Dose: 1 tab Simple Syrup (Simple Syrup 15 Ml) 15 ml FEEDTUBE PRN PRN PRN Reason: Hypoglycemia Simple Syrup (Simple Syrup 15 Ml) 30 ml FEEDTUBE PRN PRN PRN Reason: Hypoglycemia Sodium Bicarbonate (Sodium Bicarbonate 325 Mg Tab) 325 mg FEEDTUBE PRN PRN PRN Reason: For Clogged Feeding Tube Sodium Chloride (Sodium Chloride 0.9% 10 Ml Flush Syringe) 10 ml IV BID [facility] Last Admin: 04/20/22 09:14 Dose: 10 ml Sodium Chloride (Sodium Chloride 0.9% 10 Ml Flush Syringe) 10 ml IV PRN PRN PRN Reason: LINE FLUSH Review of Systems ROS unobtainable: due to endotracheal tube, due to mental status Physical Examination Vital Signs Pulse BP Pulse Ox 129 H 116/56 99 04/19/22 05:17 04/19/22 05:17 04/19/22 05:17 General appearance: other (Unresponsive, on the vent) HEENT: Positive: Other (Pupils sluggish) Neck: Positive: neck supple Cardiac: Positive: Regular Rhythm Lungs: Positive: Decreased Breath Sounds Neuro: Positive: Other (Unresponsive, on the vent) Abdomen: Positive: Soft Female genitourinary: deferred Skin: Positive: Clear Extremities: Absent: edema Results 04/20/22 04:51 04/20/22 04:51 Cardiac Enzymes 04/20/22 Range/Units 04:51 AST 33 (5-40) units/L Lipids 04/19/22 Range/Units 21:15 Triglycerides 148 (2-149) mg/dL Cholesterol 127 (50-199) mg/dL HDL Cholesterol 52 (40-59) mg/dL Cholesterol/HDL Ratio 2.44 % CBC 04/19/22 04/20/22 Range/Units 21:15 04:51 WBC 19.2 H 17.8 H (4.5-11.0) K/mm3 RBC 2.89 L 2.91 L (3.65-5.03) M/mm3 Hgb 8.7 L D 8.6 L (10.1-14.3) gm/dl Hct 28.1 L D 27.9 L (30.3-42.9) % Plt Count 267 314 (140-440) K/mm3 Comprehensive Metabolic Panel 04/19/22 04/20/22 Range/Units 15:51 04:51 Sodium 164 H* 163 H* (137-145) mmol/L Potassium 3.2 L 2.6 L* (3.6-5.0) mmol/L Chloride 116.5 H 117.9 H (98-107) mmol/L Carbon Dioxide 22 27 (22-30) mmol/L BUN 43 H 25 H (7-17) mg/dL Creatinine 0.9 0.6 (0.6-1.2) mg/dL Glucose 286 H 251 H (65-100) mg/dL Calcium 9.0 8.7 (8.4-10.2) mg/dL AST 33 (5-40) units/L ALT 20 (7-56) units/L Alkaline Phosphatase 72 (35-129) units/L Total Protein 6.7 (6.3-8.2) g/dL Albumin 3.7 L (3.9-5) g/dL EKG interpretations - Telemetry EKG Rhythm: Sinus Tachycardia Assessment and Plan - Patient Problems (1) Respiratory failure Current Visit: Yes Status: Acute Plan to address problem: Frail elderly halfway resident with advanced dementia, presents with respiratory failure, sepsis, profound dehydration and multiple metabolic derangements. Borderline troponin finding in this clinical scenario is likely nonspecific. No further cardiac work-up is indicated, will follow as needed.
[2022-04-20 16:19] LABS: Blood Urea Nitrogen 23 mg/dL (7-17); Calcium 8.5 mg/dL (8.4-10.2); Hemolysis Index 31
--- NOTE | 2022-04-20 16:28 | Progress Note ---
Assessment and Plan Acute hypoxemic resp failure on MVS Sepsis present on admission Severe anemia with possible gastrointestinal bleed Severe hypernatremia Hypokalemia Hyperglycemia Hypomagnesemia Non-ST elevated AK could be demand ischemia Baseline dementia [facility]DC resident Diabetes mellitus type 2 History of CVA Known history of seizure disorder Free water deficit- replace with [id number], hypotonic solutions- changed the current IVF to [id number] Stop Pantoprazole iinfusion, change to twice a day therapeutic dosing VAP bundle addressed, aspiration precautions HOB >40 Titrate supplemental oxygen to keep SpO2 89-92% Daily assessment for readiness to wean. Daily SAT and SBT-placed on PSV 03/14, fiO2 35% Bronchodilators as indicated Continue empiric antibiotics, de-escalate based on culture data and clinical response. Trend temperature curve and WCC (Cefepime and Vancomycin) Accucheck with glycemic control. Target blood glucose 140-180mg/dL while critically ill. Avoid hypoglycemia CXR,ABG as clinically indicated VTE prophylaxis- SCDs Stress ulcer prophylaxis- therapeutic PPI Enteric support- continue with PEG tube feeding, conservative management per GI service Serial BMP, with goal to correct sodium by 8-10 mEq in 12 hours. Replete electrolytes- potassium and magnesium as clinically indicated Mobility, off loading per facility protocol to prevent pressure ulcers worsening Wound care Avoid benzodiazepines, limit delirium Maintain sleep-wake cycle Supportive transfusions as clinically indicated to keep HgB >7g/dL Chronic home medications as clinically indicated CONDITION- CRITICAL PROGNOSIS- GUARDED CODE STATUS-DNAR Goals of care discussion by primary service. The high probability of a clinically significant, sudden or life threatening deterioration of the [multiple] system(s) required my full and direct attention, intervention and personal management. The aggregate critical care time was [35] minutes. This time is in addition to time spent performing reported procedures but includes the following: [x] Data Review and interpretation [x] Patient assessment and monitoring of vital signs [x] Documentation [x] Medication orders and management Subjective Date of service: 04/20/22 Principal diagnosis: anemia Interval history: Patient is seen today for: acute hypoxemic rsp failure onMVS; severe anemia; possible aspiration pneumonia; oropharyngeal dysphagia s/p PEG Seen and examined at bedside; 24hour events reviewed; nursing and respiratory care staff consulted; no adverse overnight events reported to me; resting peacefully in bed; remains on MVS, calm. Mental status changes persist. No fe vers, tolerating PEG tube feeding On Octreotide and pantoprazole infusions, s/p 2 units PRBC MVS AC 400/16/+6/90% ABG 7.499/45.1/334/34.3 Objective - Exam Narrative Exam: General appearance: no acute distress, other (orally intuabted, unresponsive) Eyes: non-icteric ENT: oropharynx dry Neck: supple, no lymphadenopathy, no JVD Effort: normal Ascultation: Bilateral: clear, diminished breath sounds Cardiovascular: regular rate and rhythm, other (S1,S2) Gastrointestinal: normoactive bowel sounds, soft, non-tender, PEG in place Extremities: no cyanosis, no edema, pulses normal, other (left upper extremity, wrist contracture) unable to assess psych Vital Signs - 12hr 04/20/22 04/20/22 04/20/22 05:00 06:00 07:00 Temperature Pulse Rate 103 H 113 H 99 H Pulse Rate [ From Monitor] Pulse Rate [ Throughout] Respiratory 17 19 16 Rate Respiratory Rate [Right Knee] Respiratory Rate [ Throughout] Blood Pressure 162/89 159/87 162/86 O2 Sat by Pulse 100 82 L 100 Oximetry 04/20/22 04/20/22 04/20/22 08:00 08:15 09:00 Temperature 98.5 F Pulse Rate 106 H 97 H 102 H Pulse Rate [ 111 H From Monitor] Pulse Rate [ 95 H Throughout] Respiratory 18 18 Rate Respiratory Rate [Right Knee] Respiratory 17 Rate [ Throughout] Blood Pressure 139/75 139/75 139/75 O2 Sat by Pulse 98 100 100 Oximetry 04/20/22 04/20/22 04/20/22 10:00 11:00 11:20 Temperature Pulse Rate 105 H 83 113 H Pulse Rate [ From Monitor] Pulse Rate [ Throughout] Respiratory 22 20 Rate Respiratory 17 Rate [Right Knee] Respiratory Rate [ Throughout] Blood Pressure 145/82 131/62 131/62 O2 Sat by Pulse 100 100 100 Oximetry 04/20/22 12:00 Temperature 98.3 F Pulse Rate 90 Pulse Rate [ 87 From Monitor] Pulse Rate [ Throughout] Respiratory 19 Rate Respiratory Rate [Right Knee] Respiratory Rate [ Throughout] Blood Pressure 145/70 O2 Sat by Pulse 100 Oximetry CBC and BMP: 04/21/22 04:30 04/21/22 04:30 ABG, PT/INR, D-dimer: ABG ABG pH 7.499 pH Units (7.350-7.450) H 04/20/22 04:45 ABG pCO2 45.1 mm Hg 04/20/22 04:45 ABG pO2 334.3 mm Hg (80.0-90.0) H 04/20/22 04:45 ABG O2 Saturation 99.5 % (95.0-99.0) H 04/20/22 04:45 PT/INR, D-dimer PT 15.5 Sec. (12.2-14.9) H 04/19/22 05:26 INR 1.08 (0.87-1.13) 04/19/22 05:26 Abnormal lab findings: Abnormal Labs 04/19/22 04/19/22 04/19/22 05:26 05:26 05:26 WBC 19.6 H RBC 1.39 L Hgb 4.1 L* Hct 14.8 L* MCV 106 H MCHC 28 L RDW 30.4 H Seg Neuts % (Manual) 86.0 H Lymphocytes % (Manual) 10.0 L Nucleated RBC % 2.0 H Seg Neutrophils # Man 16.9 H Lymphocytes # (Manual) PT 15.5 H APTT < 20.0 L ABG pH ABG pO2 ABG HCO3 ABG O2 Saturation ABG Base Excess ABG Hemoglobin Oxyhemoglobin Sodium 162 H* Potassium 3.2 L Chloride 114.6 H BUN 42 H Glucose 295 H POC Glucose Lactic Acid Magnesium Troponin T 0.086 H Total Protein 6.1 L Albumin 3.5 L TSH Crossmatch 04/19/22 04/19/22 04/19/22 05:26 05:26 05:26 WBC RBC Hgb Hct MCV MCHC RDW Seg Neuts % (Manual) Lymphocytes % (Manual) Nucleated RBC % Seg Neutrophils # Man Lymphocytes # (Manual) PT APTT ABG pH ABG pO2 ABG HCO3 ABG O2 Saturation ABG Base Excess ABG Hemoglobin Oxyhemoglobin Sodium Potassium Chloride BUN Glucose POC Glucose Lactic Acid 8.60 H* Magnesium 2.60 H Troponin T Total Protein Albumin TSH 4.550 H Crossmatch 04/19/22 04/19/22 04/19/22 06:00 06:05 13:06 WBC RBC Hgb Hct MCV MCHC RDW Seg Neuts % (Manual) Lymphocytes % (Manual) Nucleated RBC % Seg Neutrophils # Man Lymphocytes # (Manual) PT APTT ABG pH ABG pO2 78.7 L ABG HCO3 28.3 H ABG O2 Saturation ABG Base Excess 3.9 H ABG Hemoglobin < 12.0 L Oxyhemoglobin 94.7 L Sodium Potassium Chloride BUN Glucose POC Glucose 257 H Lactic Acid Magnesium Troponin T Total Protein Albumin TSH Crossmatch See Detail 04/19/22 04/19/22 04/19/22 15:51 17:42 21:15 WBC RBC Hgb Hct MCV MCHC RDW Seg Neuts % (Manual) Lymphocytes % (Manual) Nucleated RBC % Seg Neutrophils # Man Lymphocytes # (Manual) PT APTT ABG pH ABG pO2 ABG HCO3 ABG O2 Saturation ABG Base Excess ABG Hemoglobin Oxyhemoglobin Sodium 164 H* Potassium 3.2 L Chloride 116.5 H BUN 43 H Glucose 286 H POC Glucose 288 H Lactic Acid 4.10 H* Magnesium Troponin T Total Protein Albumin TSH Crossmatch 04/19/22 04/19/22 04/19/22 21:15 21:15 23:30 WBC 19.2 H RBC 2.89 L Hgb 8.7 L D Hct 28.1 L D MCV MCHC RDW 15.9 H Seg Neuts % (Manual) Lymphocytes % (Manual) Nucleated RBC % Seg Neutrophils # Man Lymphocytes # (Manual) PT APTT ABG pH ABG pO2 ABG HCO3 ABG O2 Saturation ABG Base Excess ABG Hemoglobin Oxyhemoglobin Sodium Potassium Chloride BUN Glucose POC Glucose 211 H Lactic Acid Magnesium Troponin T 0.057 H D Total Protein Albumin TSH Crossmatch 04/20/22 04/20/22 04/20/22 02:11 04:45 04:51 WBC 17.8 H RBC 2.91 L Hgb 8.6 L Hct 27.9 L MCV MCHC RDW 16.5 H Seg Neuts % (Manual) 94.0 H Lymphocytes % (Manual) 6.0 L Nucleated RBC % 1.0 H Seg Neutrophils # Man 16.7 H Lymphocytes # (Manual) 1.1 L PT APTT ABG pH 7.499 H ABG pO2 334.3 H ABG HCO3 34.3 H ABG O2 Saturation 99.5 H ABG Base Excess 10.1 H ABG Hemoglobin 9.9 L Oxyhemoglobin Sodium Potassium Chloride BUN Glucose POC Glucose Lactic Acid Magnesium Troponin T 0.064 H Total Protein Albumin TSH Crossmatch 04/20/22 04/20/22 04/20/22 04:51 05:34 11:36 WBC RBC Hgb Hct MCV MCHC RDW Seg Neuts % (Manual) Lymphocytes % (Manual) Nucleated RBC % Seg Neutrophils # Man Lymphocytes # (Manual) PT APTT ABG pH ABG pO2 ABG HCO3 ABG O2 Saturation ABG Base Excess ABG Hemoglobin Oxyhemoglobin Sodium 163 H* Potassium 2.6 L* Chloride 117.9 H BUN 25 H Glucose 251 H POC Glucose 186 H 141 H Lactic Acid Magnesium Troponin T Total Protein Albumin 3.7 L TSH Crossmatch 04/20/22 13:57 WBC RBC Hgb Hct MCV MCHC RDW Seg Neuts % (Manual) Lymphocytes % (Manual) Nucleated RBC % Seg Neutrophils # Man Lymphocytes # (Manual) PT APTT ABG pH ABG pO2 ABG HCO3 ABG O2 Saturation ABG Base Excess ABG Hemoglobin Oxyhemoglobin Sodium Potassium Chloride BUN Glucose POC Glucose Lactic Acid 2.50 H* Magnesium Troponin T Total Protein Albumin TSH Crossmatch Chest x-ray: image reviewed Allied health notes reviewed: RT
[2022-04-20 16:58] LABS: BUN/Creatinine Ratio 46
[2022-04-20] MEDS ORDERED: DEXTROSE 5% IN WATER 1,000 ML IV SCH (18:00)
[2022-04-20] MEDS: K-PHOS NEUTRAL 250 MG TAB PO SCH (19:20)
[2022-04-20] MEDS: METOPROLOL TARTRATE 25 MG TAB PO SCH (21:43)
[2022-04-20] MEDS: levETIRAcetam 500 MG/5 ML ORAL LIQD FEEDTUBE SCH (21:43)
[2022-04-20] MEDS ORDERED: INSULIN GLARGINE 100 UNITS/ML SUB-Q SCH (22:00)
[2022-04-21] MEDS: INSULIN LISPRO 100 UNIT/ML SUB-Q SCH ×5 (00:52→23:45)
[2022-04-21] MEDS: K-PHOS NEUTRAL 250 MG TAB PO SCH ×3 (00:52→11:56)
[2022-04-21] MEDS: IPRATROPIUM/ALBUTEROL SULFATE 3 ML AMPUL.NEB IH SCH ×4 (04:20→19:45)
[2022-04-21 04:53] LABS: ABG Base Excess 5.7 mmol/L (-2.0-3.0); ABG HCO3 29.8 mmol/L (20.0-26.0); ABG Methemoglobin 0.5 % (0.0-1.5); ABG Oxygen Saturation 98.4 % (95.0-99.0); ABG PCO2 41.6 mm Hg; ABG PH 7.473 pH Units (7.350-7.450); ABG PO2 119.6 mm Hg (80.0-90.0)
[2022-04-21 05:38] LABS: Hematocrit 24.2 % (30.3-42.9); Hemoglobin 7.6 gm/dl (10.1-14.3); Mean Corpuscular HGB Conc 32 % (30-34); Mean Corpuscular Volume 95 fl (79-97); Platelet Count 276 K/mm3 (140-440); Red Blood Count 2.56 M/mm3 (3.65-5.03); Red Cell Distribution Width 16.5 % (13.2-15.2)
--- NOTE | 2022-04-21 05:39 | XRay Report ---
CHEST 1 VIEW INDICATION / CLINICAL INFORMATION: follow up respiratory failure. COMPARISON: Chest x-ray 04/20/2022 FINDINGS: SUPPORT DEVICES: Endotracheal tube terminates above the sakina in satisfactory position. HEART / MEDIASTINUM: Heart size is within normal limits. Mediastinal contour demonstrates no signific ant abnormality. LUNGS / PLEURA: Bilateral diffuse coarsened interstitial prominence is without significant interval c hange. Somewhat more focal opacities in the left cardiophrenic angle appears stable. BONES: No significant osseous abnormality. ADDITIONAL FINDINGS: Percutaneous gastrostomy tube left upper quadrant. IMPRESSION: 1. Stable chest persistent diffuse interstitial coarsening with more focal opacities in the left lung base that may reflect infection versus atelectasis. Signer Name: Reece Suero II, MD Signed: 04/21/2022 5:35 AM Workstation Name: [id number]
[2022-04-21 05:46] LABS: Blood Urea Nitrogen 20 mg/dL (7-17); Calcium 8.5 mg/dL (8.4-10.2); Hemolysis Index 0
[2022-04-21 06:00] LABS: BUN/Creatinine Ratio 33
[2022-04-21] MEDS: CEFEPIME/NS 2 GM/100 ML 2 GM/100 ML BAG IV SCH ×2 (06:16→17:24)
[2022-04-21] MEDS: FREE WATER PO SCH ×4 (06:16→21:43)
[2022-04-21] MEDS: VANCOMYCIN 1,250 MG in SODIUM CHLORIDE 0.9% 250ML 250 ML IV SCH (06:17)
[2022-04-21] MEDS: POTASSIUM CHLORIDE 10 MEQ 10 MEQ/100 ML BAG IV SCH ×6 (06:34→11:46)
[2022-04-21] MEDS: NYSTATIN 500,000 UNIT/5 ML ORAL LIQD PO SCH ×3 (07:46→21:43)
--- NOTE | 2022-04-21 08:13 | Progress Note ---
Assessment and Plan 1. Hypernatremia: Hyponatremia secondary to dehydration. Received IV D5W. On tube water flushes. Sodium level is improving. Follow Sodium level. 2. FEN: Hypokalemia, replete K, monitor. Replete lytes as needed. Monitor lytes and volume status. 3. Acute Resp failure: Currently on MV. 4. SIRS vs Sepsis: On abx. Followed by ID. 5. Severe anemia: S/p pRBC. GI evaluated, signed off. 6. Acute metabolic encephalopathy, POA: H/o Dementia. Monitor. Subjective: Patient was seen and examined at the bedside. Examination: General appearance: well-developed, appears stated age, no distress, intubated, on vent HEENT: atraumatic, no icterus, resisting exam Neck: trachea midline Respiratory: coarse breath sounds Heart: S1S2, regular, no murmur Abdomen: soft, bowel sounds heard, NT Integumentary: no obvious rash Neurologic: unresponsive, ext contractures noted Ext: no edema Subjective Date of service: 04/21/22 Principal diagnosis: anemia Objective - Vital Signs Vital signs: Vital Signs - 12hr 04/20/22 04/20/22 04/20/22 21:00 21:29 22:00 Temperature Pulse Rate 83 90 76 Pulse Rate [ From Monitor] Pulse Rate [ Throughout] Respiratory 17 16 16 Rate Respiratory Rate [ Throughout] Blood Pressure 132/70 132/70 116/74 O2 Sat by Pulse 100 100 100 Oximetry 04/20/22 04/21/22 04/21/22 23:00 00:00 00:13 Temperature 98.2 F Pulse Rate 63 74 72 Pulse Rate [ 75 From Monitor] Pulse Rate [ Throughout] Respiratory 16 16 Rate Respiratory Rate [ Throughout] Blood Pressure 142/67 142/64 142/67 O2 Sat by Pulse 100 100 100 Oximetry 04/21/22 04/21/22 04/21/22 01:00 02:00 03:01 Temperature Pulse Rate 73 74 90 Pulse Rate [ From Monitor] Pulse Rate [ Throughout] Respiratory 16 16 22 Rate Respiratory Rate [ Throughout] Blood Pressure 140/66 140/66 153/70 O2 Sat by Pulse 100 100 Oximetry 04/21/22 04/21/22 04/21/22 04:00 04:20 04:21 Temperature 98.7 F Pulse Rate 78 77 Pulse Rate [ 95 H From Monitor] Pulse Rate [ 79 Throughout] Respiratory 16 Rate Respiratory 18 Rate [ Throughout] Blood Pressure 145/63 145/63 O2 Sat by Pulse 100 100 Oximetry 04/21/22 04/21/22 05:00 06:00 Temperature Pulse Rate 84 100 H Pulse Rate [ From Monitor] Pulse Rate [ Throughout] Respiratory 18 21 Rate Respiratory Rate [ Throughout] Blood Pressure 140/72 142/68 O2 Sat by Pulse 100 100 Oximetry - Lab 04/21/22 04:30 04/21/22 14:39 Most recent lab results ABG pH 7.473 pH Units (7.350-7.450) H 04/21/22 04:44 ABG pCO2 41.6 mm Hg 04/21/22 04:44 ABG pO2 119.6 mm Hg (80.0-90.0) H 04/21/22 04:44 ABG HCO3 29.8 mmol/L (20.0-26.0) H 04/21/22 04:44 ABG O2 Saturation 98.4 % (95.0-99.0) 04/21/22 04:44 Calcium 8.5 mg/dL (8.4-10.2) 04/21/22 04:30 Phosphorus 2.70 mg/dL (2.5-4.5) 04/21/22 04:30 Magnesium 1.90 mg/dL (1.7-2.3) 04/21/22 04:30 Medications & Allergies - Medications Allergies/Adverse Reactions: Allergies No Known Allergies Allergy (Verified 03/15/21 10:30) Home Medications: Home Medications Medication Instructions Recorded Confirmed Last Taken Type Ferrous Sulfate [Iron 325 MG] 325 mg PO DAILY 03/17/21 04/19/22 Unknown History Lovastatin [Altoprev] 40 mg PO DAILY 03/17/21 04/19/22 Unknown History allopurinoL [Zyloprim] 300 mg PO QDAY 03/17/21 04/19/22 Unknown History amLODIPine 10 mg PO DAILY 03/17/21 04/19/22 Unknown History Aspirin [Adult Aspirin] 81 mg PO DAILY #30 tablet. 03/22/21 04/19/22 Unknown Rx Linagliptin [Tradjenta] 5 mg PO QAMDIAB #30 tablet 03/22/21 04/19/22 Unknown Rx Insulin Glargine [Lantus VIAL] 10 units SUB-Q QHS #30 ml 11/04/21 04/19/22 Unknown Rx Lacosamide [Vimpat] 100 mg PO Q12HR #60 tablet 11/04/21 04/19/22 Unknown Rx Sennosides/Docusate [Senokot S] 2 tab FEEDTUBE BID #30 tablet 11/04/21 04/19/22 Unknown Rx levETIRAcetam [Keppra] 1,000 mg FEEDTUBE BID #600 ml 11/04/21 04/19/22 Unknown Rx Cholecalciferol Vit D3 [Vitamin D3 1,000 unit PO QDAY tablet 01/11/22 04/19/22 Unknown Rx 1,000 UNIT TAB] Metoprolol [Lopressor TAB] 25 mg PO Q8HR 30 Days #90 tablet 01/11/22 04/19/22 Unknown Rx Acetaminophen [Acetaminophen TAB] 650 mg PO Q4H PRN tablet 01/19/22 04/19/22 Unknown Rx Famotidine [Zantac-360 20 mg PO QDAY 04/19/22 04/19/22 Unknown History (Famotidine)] Insulin Lispro [Admelog] See Protocol SQ ACHS 04/19/22 04/19/22 Unknown History Magnesium Hydroxide [Milk of 400 mg PO QDAY PRN 04/19/22 04/19/22 Unknown History Magnesia] traMADoL [Ultram] 50 mg PO Q6HR PRN 04/19/22 04/19/22 Unknown History Active Medications: Generic Name Dose Route Start Last Admin Trade Name Freq PRN Reason Stop Dose Admin Acetaminophen 650 mg 04/19/22 09:00 Acetaminophen 650 Mg Rect Supp ND Q6H PRN Pain MILD(1-3)/Fever >100.5/FERRARI Albuterol 2.5 mg 04/19/22 09:00 Albuterol 2.5 Mg/3 Ml Nebu IH Q3HRT PRN Shortness Of Breath Albuterol/Ipratropium 1 ampul 04/19/22 09:00 04/21/22 04:20 Ipratropium/Albuterol Sulfate 3 Ml Ampul.Neb IH 1 ampul Q6HRT CONNIE Administration Amlodipine Besylate 10 mg 04/21/22 10:00 Amlodipine 10 Mg Tab PO DAILY CONNIE Lipase/Protease/Amylase 1 each 04/19/22 16:00 Lipase 10,500/Protease 25,000/Amylase 43,750 (Units) Dr Cap FEEDTUBE PRN PRN For Clogged Feeding Tube Dextrose 50 ml 04/19/22 08:30 Dextrose 50% In Water (25gm) 50 Ml Syringe IV Q30MIN PRN Hypoglycemia Protocol Hydrophilic Ointment 1 applic 04/19/22 05:15 Lip Therapy Vaseline TP Q2HR PRN Dry Lips Fentanyl Citrate 1,000 mcg in 100 mls @ 2.5 mls/hr 04/19/22 06:00 Fentanyl Drip Premix IV TITR CONNIE Protocol 25 MCG/HR Cefepime HCl 2 gm in 100 mls @ 200 mls/hr 04/19/22 18:00 04/21/22 06:16 Cefepime/Ns 2 Gm/100 Ml IV 200 mls/hr Q12H CONNIE Administration Vancomycin HCl 1,250 mg/ 275 mls @ 166.667 mls/hr 04/20/22 06:00 04/21/22 06:17 Sodium Chloride IV 166.667 mls/hr Q24H CONNIE Administration Dextrose 1,000 mls @ 75 mls/hr 04/20/22 18:00 04/20/22 18:14 D5w IV 04/22/22 07:19 75 mls/hr DIRECT CONNIE Administration Potassium Chloride 10 meq in 100 mls @ 100 mls/hr 04/21/22 06:22 04/21/22 07 :35 Kcl 10meq/100ml IV 04/21/22 12:21 100 mls/hr Q1H CONNIE Administration Insulin Glargine 10 units 04/20/22 22:00 04/20/22 21:43 Insulin Glargine 100 Units/Ml SUB-Q 10 units QHS CONNIE Administration Insulin Human Lispro 0 unit 04/19/22 12:00 04/21/22 06:17 Insulin Lispro 100 Unit/Ml SUB-Q 4 unit Q6HR CONNIE Administration Protocol Lansoprazole 30 mg 04/21/22 10:00 Lansoprazole 30 Mg Solutab FEEDTUBE BID CONNIE Levetiracetam 1,000 mg 04/20/22 22:00 04/20/22 21:43 Levetiracetam 500 Mg/5 Ml Oral Liqd FEEDTUBE 1,000 mg BID CONNIE Administration Metoprolol Tartrate 12.5 mg 04/20/22 22:00 04/20/22 21:43 Metoprolol Tartrate 25 Mg Tab PO 12.5 mg BID CONNIE Administration Multi-Ingred Cream/Lotion/Oil/Oint 1 applic 04/19/22 05:15 Mineral Oil/Petrolatum, White Ophth Oint 3.5 Gm OU Q4HR PRN Dry Eye(s) Naloxone HCl 0.1 mg 04/19/22 09:00 Naloxone 0.4 Mg/1 Ml Inj IV Q2MIN PRN Res Rate </= 8 or 02 SAT < 92% Nystatin 500,000 unit 04/19/22 20:00 04/21/22 07:46 Nystatin 500,000 Unit/5 Ml Oral Liqd PO 500,000 unit TID CONNIE Administration Senna/Docusate Sodium 1 tab 04/19/22 10:00 04/20/22 21:43 Sennosides/Docusate Sodium 8.6/50 Mg Tab FEEDTUBE 1 tab BID CONNIE Administration Simple Syrup 15 ml 04/19/22 16:00 Simple Syrup 15 Ml FEEDTUBE PRN PRN Hypoglycemia Simple Syrup 30 ml 04/19/22 16:00 Simple Syrup 15 Ml FEEDTUBE PRN PRN Hypoglycemia Sodium Bicarbonate 325 mg 04/19/22 16:00 Sodium Bicarbonate 325 Mg Tab FEEDTUBE PRN PRN For Clogged Feeding Tube Sodium Chloride 10 ml 04/19/22 10:00 04/20/22 21:44 Sodium Chloride 0.9% 10 Ml Flush Syringe IV 10 ml BID CONNIE Administration Sodium Chloride 10 ml 04/19/22 09:00 Sodium Chloride 0.9% 10 Ml Flush Syringe IV PRN PRN LINE FLUSH Sodium Phosphate 250 mg 04/20/22 20:00 04/21/22 06:17 K-Phos Neutral 250 Mg Tab PO 04/21/22 12:01 250 mg Q6HR CONNIE Administration
--- NOTE | 2022-04-21 08:38 | Progress Note ---
Assessment and Plan Acute hypoxemic resp failure on MVS Sepsis present on admission Severe anemia with possible gastrointestinal bleed Severe hypernatremia Hypokalemia Hyperglycemia Hypomagnesemia Non-ST elevated AR could be demand ischemia Baseline dementia custodial resident Diabetes mellitus type 2 History of CVA Known history of seizure disorder - trial of extubation - hold tube feeds pre-extubation - BIPAP prn post extubation - complete Cefepime dosing - continue care as below for now otherwise; - Daily SAT's and SBT assessment as tolerated - continue to wean supplemental oxygen for target O2 sat's > 90% acutely - VAP bundle addressed - continue lung protective strategies - continue bronchodilators with pulmonary hygiene per RT - wean per pulmonary driven protocols otherwise - continue accuchecks resumed with glycemic control per SSI (While critically ill target blood glucose of 140-180 mg/dL; avoid hypoglycemia) - sedation prn for target RASS 0 to -1 - continue to avoid benzodiazepine's, reduce the possibility of delirium - complete AB's per ID rec's - prn analgesia per CPOT score - Maintenance of sleep-wake cycle, avoid delirium - continue enteral nutritional support at goal rate as tolerated - G.I. & VTE prophylaxis - PT/OT/ROM exercises - continue mobility protocols for pressure ulcer prophylaxis - Monitor hemodynamics closely - continue other care per attending / other consultants - discharge planning ongoing concurrently .... Re-evaluate in am & prn CONDITION: CRITICAL PROGNOSIS: GUARDED CODE STATUS: FULL CODE The high probability of a clinically significant, sudden or life-threatening deterioration of the [respiratory, cardiovascular & neurologic] system(s) required my full and direct attention, intervention and personal management. The aggregate critical care time was [34] minutes without overlap. Time includes spent on; [x] Data Review and interpretation [x] Patient assessment and monitoring of vital signs [x] Documentation [x] Medication orders and management Subjective Date of service: 04/21/22 Principal diagnosis: AHRF; Sepsis; Severe anemia; Severe hypernatremia; NSTEMI; DM II; H/O CVA Interval history: Patient is seen today for: Acute hypoxemic resp failure; Sepsis; Severe anemia; Severe hypernatremia; NSTEMI; Baseline dementia; DM II; H/O CVA; seizure disorder Seen and examined at bedside; 24hour events reviewed; nursing and respiratory care staff consulted; no adverse overnight events reported to me; resting peacefully in bed; on SBT via PSV with p-supp @ 8 cm H2O and tolerating very well; AMS is persistent Objective Vital Signs - 12hr 04/20/22 04/20/22 04/20/22 21:00 21:29 22:00 Temperature Pulse Rate 83 90 76 Pulse Rate [ From Monitor] Pulse Rate [ Throughout] Respiratory 17 16 16 Rate Respiratory Rate [ Throughout] Blood Pressure 132/70 132/70 116/74 O2 Sat by Pulse 100 100 100 Oximetry 04/20/22 04/21/22 04/21/22 23:00 00:00 00:13 Temperature 98.2 F Pulse Rate 63 74 72 Pulse Rate [ 75 From Monitor] Pulse Rate [ Throughout] Respiratory 16 16 Rate Respiratory Rate [ Throughout] Blood Pressure 142/67 142/64 142/67 O2 Sat by Pulse 100 100 100 Oximetry 04/21/22 04/21/22 04/21/22 01:00 02:00 03:01 Temperature Pulse Rate 73 74 90 Pulse Rate [ From Monitor] Pulse Rate [ Throughout] Respiratory 16 16 22 Rate Respiratory Rate [ Throughout] Blood Pressure 140/66 140/66 153/70 O2 Sat by Pulse 100 100 Oximetry 04/21/22 04/21/22 04/21/22 04:00 04:20 04:21 Temperature 98.7 F Pulse Rate 78 77 Pulse Rate [ 95 H From Monitor] Pulse Rate [ 79 Throughout] Respiratory 16 Rate Respiratory 18 Rate [ Throughout] Blood Pressure 145/63 145/63 O2 Sat by Pulse 100 100 Oximetry 04/21/22 04/21/22 05:00 06:00 Temperature Pulse Rate 84 100 H Pulse Rate [ From Monitor] Pulse Rate [ Throughout] Respiratory 18 21 Rate Respiratory Rate [ Throughout] Blood Pressure 140/72 142/68 O2 Sat by Pulse 100 100 Oximetry Constitutional: no acute distress, other (elderly female with normal respiratory effort at rest on MVS) Eyes: non-icteric ENT: oropharynx moist, other (ETT 24 cm LEO) Neck: supple, no lymphadenopathy, no JVD Effort: normal Ascultation: Bilateral: clear, diminished breath sounds Percussion: Bilateral: not dull Cardiovascular: regular rate and rhythm, other (S1,S2) Gastrointestinal: normoactive bowel sounds, soft, non-tender, non-distended Integumentary: decubitus ulcer (POA; Sacral) Extremities: no cyanosis, no edema, pulses normal, no ischemia or petechiae, other (left upper extremity, wrist contracture) Neurologic: pupils equal and round, unable to assess Psychiatric: other (unable to assess re: AMS) CBC and BMP: 04/21/22 04:30 04/21/22 04:30 ABG, PT/INR, D-dimer: ABG ABG pH 7.473 pH Units (7.350-7.450) H 04/21/22 04:44 ABG pCO2 41.6 mm Hg 04/21/22 04:44 ABG pO2 119.6 mm Hg (80.0-90.0) H 04/21/22 04:44 ABG O2 Saturation 98.4 % (95.0-99.0) 04/21/22 04:44 PT/INR, D-dimer PT 15.5 Sec. (12.2-14.9) H 04/19/22 05:26 INR 1.08 (0.87-1.13) 04/19/22 05:26 Abnormal lab findings: Abnormal Labs 04/19/22 04/19/22 04/19/22 05:26 05:26 05:26 WBC 19.6 H RBC 1.39 L Hgb 4.1 L* Hct 14.8 L* MCV 106 H MCHC 28 L RDW 30.4 H Seg Neuts % (Manual) 86.0 H Lymphocytes % (Manual) 10.0 L Nucleated RBC % 2.0 H Seg Neutrophils # Man 16.9 H Lymphocytes # (Manual) PT 15.5 H APTT < 20.0 L ABG pH ABG pO2 ABG HCO3 ABG O2 Saturation ABG Base Excess ABG Hemoglobin Oxyhemoglobin Sodium 162 H* Potassium 3.2 L Chloride 114.6 H BUN 42 H Creatinine Glucose 295 H POC Glucose Lactic Acid Phosphorus Magnesium Troponin T 0.086 H Total Protein 6.1 L Albumin 3.5 L TSH Crossmatch 04/19/22 04/19/22 04/19/22 05:26 05:26 05:26 WBC RBC Hgb Hct MCV MCHC RDW Seg Neuts % (Manual) Lymphocytes % (Manual) Nucleated RBC % Seg Neutrophils # Man Lymphocytes # (Manual) PT APTT ABG pH ABG pO2 ABG HCO3 ABG O2 Saturation ABG Base Excess ABG Hemoglobin Oxyhemoglobin Sodium Potassium Chloride BUN Creatinine Glucose POC Glucose Lactic Acid 8.60 H* Phosphorus Magnesium 2.60 H Troponin T Total Protein Albumin TSH 4.550 H Crossmatch 04/19/22 04/19/22 04/19/22 06:00 06:05 13:06 WBC RBC Hgb Hct MCV MCHC RDW Seg Neuts % (Manual) Lymphocytes % (Manual) Nucleated RBC % Seg Neutrophils # Man Lymphocytes # (Manual) PT APTT ABG pH ABG pO2 78.7 L ABG HCO3 28.3 H ABG O2 Saturation ABG Base Excess 3.9 H ABG Hemoglobin < 12.0 L Oxyhemoglobin 94.7 L Sodium Potassium Chloride BUN Creatinine Glucose POC Glucose 257 H Lactic Acid Phosphorus Magnesium Troponin T Total Protein Albumin TSH Crossmatch See Detail 04/19/22 04/19/22 04/19/22 15:51 17:42 21:15 WBC RBC Hgb Hct MCV MCHC RDW Seg Neuts % (Manual) Lymphocytes % (Manual) Nucleated RBC % Seg Neutrophils # Man Lymphocytes # (Manual) PT APTT ABG pH ABG pO2 ABG HCO3 ABG O2 Saturation ABG Base Excess ABG Hemoglobin Oxyhemoglobin Sodium 164 H* Potassium 3.2 L Chloride 116.5 H BUN 43 H Creatinine Glucose 286 H POC Glucose 288 H Lactic Acid 4.10 H* Phosphorus Magnesium Troponin T Total Protein Albumin TSH Crossmatch 04/19/22 04/19/22 04/19/22 21:15 21:15 23:30 WBC 19.2 H RBC 2.89 L Hgb 8.7 L D Hct 28.1 L D MCV MCHC RDW 15.9 H Seg Neuts % (Manual) Lymphocytes % (Manual) Nucleated RBC % Seg Neutrophils # Man Lymphocytes # (Manual) PT APTT ABG pH ABG pO2 ABG HCO3 ABG O2 Saturation ABG Base Excess ABG Hemoglobin Oxyhemoglobin Sodium Potassium Chloride BUN Creatinine Glucose POC Glucose 211 H Lactic Acid Phosphorus Magnesium Troponin T 0.057 H D Total Protein Albumin TSH Crossmatch 04/20/22 04/20/22 04/20/22 02:11 04:45 04:51 WBC 17.8 H RBC 2.91 L Hgb 8.6 L Hct 27.9 L MCV MCHC RDW 16.5 H Seg Neuts % (Manual) 94.0 H Lymphocytes % (Manual) 6.0 L Nucleated RBC % 1.0 H Seg Neutrophils # Man 16.7 H Lymphocytes # (Manual) 1.1 L PT APTT ABG pH 7.499 H ABG pO2 334.3 H ABG HCO3 34.3 H ABG O2 Saturation 99.5 H ABG Base Excess 10.1 H ABG Hemoglobin 9.9 L Oxyhemoglobin Sodium Potassium Chloride BUN Creatinine Glucose POC Glucose Lactic Acid Phosphorus Magnesium Troponin T 0.064 H Total Protein Albumin TSH Crossmatch 04/20/22 04/20/22 04/20/22 04:51 05:34 11:36 WBC RBC Hgb Hct MCV MCHC RDW Seg Neuts % (Manual) Lymphocytes % (Manual) Nucleated RBC % Seg Neutrophils # Man Lymphocytes # (Manual) PT APTT ABG pH ABG pO2 ABG HCO3 ABG O2 Saturation ABG Base Excess ABG Hemoglobin Oxyhemoglobin Sodium 163 H* Potassium 2.6 L* Chloride 117.9 H BUN 25 H Creatinine Glucose 251 H POC Glucose 186 H 141 H Lactic Acid Phosphorus Magnesium Troponin T Total Protein Albumin 3.7 L TSH Crossmatch 04/20/22 04/20/22 04/20/22 13:57 13:57 16:42 WBC RBC Hgb Hct MCV MCHC RDW Seg Neuts % (Manual) Lymphocytes % (Manual) Nucleated RBC % Seg Neutrophils # Man Lymphocytes # (Manual) PT APTT ABG pH ABG pO2 ABG HCO3 ABG O2 Saturation ABG Base Excess ABG Hemoglobin Oxyhemoglobin Sodium 164 H* Potassium Chloride 117.1 H BUN 23 H Creatinine 0.5 L Glucose 177 H POC Glucose 204 H Lactic Acid 2.50 H* Phosphorus 2.40 L Magnesium Troponin T Total Protein Albumin TSH Crossmatch 04/21/22 04/21/22 04/21/22 00:15 04:30 04:30 WBC 14.9 H RBC 2.56 L Hgb 7.6 L Hct 24.2 L MCV MCHC RDW 16.5 H Seg Neuts % (Manual) Lymphocytes % (Manual) Nucleated RBC % Seg Neutrophils # Man Lymphocytes # (Manual) PT APTT ABG pH ABG pO2 ABG HCO3 ABG O2 Saturation ABG Base Excess ABG Hemoglobin Oxyhemoglobin Sodium 149 H D Potassium 2.3 L* D Chloride BUN 20 H Creatinine Glucose 236 H POC Glucose 250 H Lactic Acid Phosphorus Magnesium Troponin T Total Protein Albumin TSH Crossmatch 04/21/22 04/21/22 04:30 04:44 WBC RBC Hgb Hct MCV MCHC RDW Seg Neuts % (Manual) Lymphocytes % (Manual) Nucleated RBC % Seg Neutrophils # Man Lymphocytes # (Manual) PT APTT ABG pH 7.473 H ABG pO2 119.6 H ABG HCO3 29.8 H ABG O2 Saturation ABG Base Excess 5.7 H ABG Hemoglobin 7.5 L Oxyhemoglobin Sodium Potassium Chloride BUN Creatinine Glucose POC Glucose Lactic Acid 2.90 H* Phosphorus Magnesium Troponin T Total Protein Albumin TSH Crossmatch Chest x-ray: image reviewed (ETT in good position) Allied health notes reviewed: nursing
[2022-04-21] MEDS: SENNOSIDES/DOCUSATE SODIUM 8.6/50 MG TAB FEEDTUBE SCH ×2 (09:09→21:44)
[2022-04-21] MEDS: LANSOPRAZOLE 30 MG SOLUTAB FEEDTUBE SCH ×2 (09:09→21:44)
[2022-04-21] MEDS: levETIRAcetam 500 MG/5 ML ORAL LIQD FEEDTUBE SCH ×2 (09:09→21:44)
[2022-04-21] MEDS: amLODIPine 10 MG TAB PO SCH (09:10)
[2022-04-21] MEDS: METOPROLOL TARTRATE 25 MG TAB PO SCH ×2 (09:11→21:44)
--- NOTE | 2022-04-21 12:24 | Progress Note ---
Assessment and Plan Cultures: 04/19/2022 blood culture: no growth so far 04/19/2022 COVID-19 PCR: Negative 04/19/2022 tracheal aspirate culture: Heavy growth of usual respiratory deja A/P: 87-year-old female with seizure disorder, prior CVA, hypertension, dementia, jail resident known to us from her previous hospitalizations, had COVID- 19 pneumonia in January 2022, then readmitted with possible aspiration pneumonia, treated with antibiotics [facility] jail with hypoxia, weakness: #SIRS v/s sepsis: Chest x-ray without obvious pneumonia, possible atelectasis. Leukocytosis could be reactive to severe anemia. UA without any pyuria. No obvious source of infection identified yet. #Severe anemia: GI evaluted, signed off. #Lactic acidosis #Acute encephalopathy: Probably metabolic, sodium was 162 #Acute resp failure: on the vent. Recs: Continue IV cefepime for 5 to 7 days No MRSA on any of the cultures, vancomycin discontinued Monitor WBC, seems to be downtrending, if any worsening or fever, get CT abdomen and pelvis with IV contrast Joe Terry MD, FACP, [facility] ([facility]) O: [phone] F: [phone] C: [phone] Subjective Date of service: 04/21/22 Principal diagnosis: anemia Interval history: Afebrile, Tmax 100F. Remains on the vent. Doesn't follow commands per RN. Objective - Exam Narrative Exam: Physical Exam: Constitutional: intubated, on the vent Head, Ears, Nose: Normocephalic, atraumatic. External ears, nose normal Eyes: Conjunctivae/corneas clear. No icterus. No ptosis. Neck: intubated Oral: intubated Cardiovascular: S1, S2 + Respiratory: AE fair bilaterally and equal GI: Soft, bowel sounds + Musculoskeletal: No pedal edema, no cyanosis. Contractures, foot drop bilater ally Skin: No rash or abscess Hem/Lymphatic: No palpable cervical or supraclavicular nodes. No lymphangitis Psych: no agitation Neurological: intubated, on the vent, exam limited - Constitutional Vitals: Vital Signs Temp Pulse Resp BP Pulse Ox 100.0 F H 91 H 19 139/74 100 04/21/22 12:00 09/15/22 12:00 04/21/22 12:00 04/21/22 12:00 04/21/22 12:00 Temperature -Last 24 Hours Temperature 100.0 F Temperature 98.8 F Temperature 98.7 F Temperature 98.2 F Temperature 98.9 F Temperature 98.6 F - Labs CBC & Chem 7: 04/21/22 04:30 04/21/22 04:30 Labs: Abnormal lab results 04/20/22 04/20/22 04/20/22 Range/Units 13:57 13:57 16:42 WBC (4.5-11.0) K/mm3 RBC (3.65-5.03) M/mm3 Hgb (10.1-14.3) gm/dl Hct (30.3-42.9) % RDW (13.2-15.2) % ABG pH (7.350-7.450) pH Units ABG pO2 (80.0-90.0) mm Hg ABG HCO3 (20.0-26.0) mmol/L ABG Base Excess (-2.0-3.0) mmol/L ABG Hemoglobin (12.0-16.0) gm/dl Sodium 164 H* (137-145) mmol/L Potassium (3.6-5.0) mmol/L Chloride 117.1 H (98-107) mmol/L BUN 23 H (7-17) mg/dL Creatinine 0.5 L (0.6-1.2) mg/dL Glucose 177 H (65-100) mg/dL POC Glucose 204 H (70-105) mg/dL Lactic Acid 2.50 H* (0.7-2.0) mmol/L Phosphorus 2.40 L (2.5-4.5) mg/dL 04/21/22 04/21/22 04/21/22 Range/Units 00:15 04:30 04:30 WBC 14.9 H (4.5-11.0) K/mm3 RBC 2.56 L (3.65-5.03) M/mm3 Hgb 7.6 L (10.1-14.3) gm/dl Hct 24.2 L (30.3-42.9) % RDW 16.5 H (13.2-15.2) % ABG pH (7.350-7.450) pH Units ABG pO2 (80.0-90.0) mm Hg ABG HCO3 (20.0-26.0) mmol/L ABG Base Excess (-2.0-3.0) mmol/L ABG Hemoglobin (12.0-16.0) gm/dl Sodium 149 H D (137-145) mmol/L Potassium 2.3 L* D (3.6-5.0) mmol/L Chloride (98-107) mmol/L BUN 20 H (7-17) mg/dL Creatinine (0.6-1.2) mg/dL Glucose 236 H (65-100) mg/dL POC Glucose 250 H (70-105) mg/dL Lactic Acid (0.7-2.0) mmol/L Phosphorus (2.5-4.5) mg/dL 04/21/22 04/21/22 04/21/22 Range/Units 04:30 04:44 05:19 WBC (4.5-11.0) K/mm3 RBC (3.65-5.03) M/mm3 Hgb (10.1-14.3) gm/dl Hct (30.3-42.9) % RDW (13.2-15.2) % ABG pH 7.473 H (7.350-7.450) pH Units ABG pO2 119.6 H (80.0-90.0) mm Hg ABG HCO3 29.8 H (20.0-26.0) mmol/L ABG Base Excess 5.7 H (-2.0-3.0) mmol/L ABG Hemoglobin 7.5 L (12.0-16.0) gm/dl Sodium (137-145) mmol/L Potassium (3.6-5.0) mmol/L Chloride (98-107) mmol/L BUN (7-17) mg/dL Creatinine (0.6-1.2) mg/dL Glucose (65-100) mg/dL POC Glucose 235 H (70-105) mg/dL Lactic Acid 2.90 H* (0.7-2.0) mmol/L Phosphorus (2.5-4.5) mg/dL 04/21/22 Range/Units 11:50 WBC (4.5-11.0) K/mm3 RBC (3.65-5.03) M/mm3 Hgb (10.1-14.3) gm/dl Hct (30.3-42.9) % RDW (13.2-15.2) % ABG pH (7.350-7.450) pH Units ABG pO2 (80.0-90.0) mm Hg ABG HCO3 (20.0-26.0) mmol/L ABG Base Excess (-2.0-3.0) mmol/L ABG Hemoglobin (12.0-16.0) gm/dl Sodium (137-145) mmol/L Potassium (3.6-5.0) mmol/L Chloride (98-107) mmol/L BUN (7-17) mg/dL Creatinine (0.6-1.2) mg/dL Glucose (65-100) mg/dL POC Glucose 169 H (70-105) mg/dL Lactic Acid (0.7-2.0) mmol/L Phosphorus (2.5-4.5) mg/dL
--- NOTE | 2022-04-21 13:36 | Progress Note ---
<NISA DENNIS - Last Filed: 04/21/22 19:26> Assessment and Plan Assessment and plan: This is 87-year-old female from [facility] facility with known past medical history of HTN, CVA, DM, GERD, dementia, dysphagia s/p PEG-Tube placement, and renal disease admitted for severe anemia with possible GI bleed, sepsis, and acute hypoxic respiratory failure requiring ventilatory support. Hospital Course to Date: 04/20: Remains on the vent, tolerating PSV trial this am, plan to wean for possible extubation per CCM. Patient remains on octreotide and protonix gtts. s/p 2units of PRBCs, H&H stable, no s/s of any active bleeding. Tolerating TF. GI recommendations noted, no plan for any intervention at this time. Will D/C octreotide gtt and switched PPI to PO BID. Still with severe hypernatremia despite continuous IVF hydration, now with hypokelemia. FWF added and K repleted, will also consult nephrology for further recs. Continue to monitor and replace electrolytes as needed. SSI adjusted and lantus added Qhs for hyperglycemia. 04/21: Tolerating PSV trial this am, plan for possible extubation today per CCM. Hypernatremia improved, still hypokalemic D5W gtt D/cristino and FWF adjusted. Nephrology is following. Lantus adjusted due to hyperglycemia Assessment and Plan #Acute Hypoxic Respiratory Failure #Possible Aspiration - Presented from [facility] with high fever, tachycardia, and hypoxic - Intubated in the Ed for airway protection on 04/19 - Purulent vs TF contents was suctioned during intubation - Initial CXR revealed worsening opacities at the mid-lower left lung reflecting atelectasis - Vent setting:CPAP- 35%,8 PS-8 - AM ABG noted - CCM consulted, appreciate recommendations - Continue IV Abx per ID and vent adjustment per CCM - VAP bundle addressed - Aspiration precaution HOB above 30 - Daily SBT trials as tolerated. Plan to wean for possible extubation - Daily ABG and CXR - Continue SPO2 monitoring for SPO2 goal above 92% #Severe Anemia with Possible Gastrointestinal Bleed - Presented with Hgb of 4.1, occult stool is positive. No s/s of any active bleeding - s/p octreotide and protonix gtt - S/p 2units of PRBCs - GI consulted, recommendations appreciated - No report of any active bleeding since admit, H&H stable - No plan for any interventions per GI - On PO protonix BID - Close monitoring for any s/s of any active bleeding - Continue to trend CBC - Transfuse for hgb less than 7 #Severe Hypernatremia #Hypokalemia #Hypomagnesemia - Probably secondary to hypovelemia/dehydration - Patient remains severely hypernatremic this am, now with hypokalemia - Remains on continuous IVF - FWF added Q4hrs, K repeleted - Nephrology consulted, appreciate recommendations - Strict intake and output - Monitor and replace electrolytes as needed #Sepsis (POA) #Possible Aspiration Pneumonia #Leukocytosis #Lactic Acidosis - Presented with with high fever, tachycardia, and hypoxic - Purulent vs TF contents was suctioned during intubation - Initial CXR revealed worsening opacities at the mid-lower left lung reflecting atelectasis - UA is unremarkable, Blood cultures with NGTD, sputum culture pending - ID consulted, appreciate recommendations - Continue current IV abx- Cefepine, Vanco - F/U on cultures - Daily CBC monitor #Acute Metabolic Encephalopathy #History of Seizure Disorder #H/o CVA and Dementia #Fdc Resident - Unresponsive on presentation, most likely secondary to above - bedbound and confused at baseline - Currently intubated, not on any sedations. open eyes spontaneously, does not track, does not follow any commands - Treat underlying factors as above - Resume home keppra - Seizure precaution - Aspiration precaution - Avoid benzodiazepine to reduce the possibility of delirium - PRN Analgesia for CPOT greater than 3 - Maintenance of sleep-wake cycle #Non-ST elevated VT (NSTEMI) #Hypertension - Presented with elevated Troponin, probable demand ischemia - Cardiology on consult, appreciated recommendations - Remains in SR on the monitor, no significant ST changes appreciated - SBP in the 150s-160s - Will resume home antihypertensive - Continue blood pressure monitor per protocol - Maintain SBP less than 160 #Type 2 Diabetes Mellitus with Hyperglycemia - BG check and SSI Q6hrs - Lantus added Qhs - Avoid hypoglycemia #GI/DVT Prophylaxis - PPI- Protonix - SCDs to bilateral lower extremities while in bed #Advance Care Planning - Disease education data, care plan, diagnoses, and prognosis were discussed with patient's son via phone. Patient is AND/DNR status. Patient's son acknowledged understanding and agreed with current care plan. The high probability of a clinically significant, sudden or life threatening deterioration of the [multiple] system(s) required my full and direct attention, intervention and personal management. The aggregate critical care time was [60] minutes. This time is in addition to time spent performing reported procedures but includes the following: [x] Data Review and interpretation [x] Patient assessment and monitoring of vital signs [x] Documentation [x] Medication orders and management Disposition Plan: ICU Total Time Spent with Patient (Minutes): 60 History Interval history: Patient seen and examined at the bedside. Remains stable on the vent. H&H and vital signs stable. No s/s of any active bleeding. Tolerating PSV trial this am. ROSETTA overnight. Hospitalist Physical - Physical exam Narrative exam: General appearance: Present: cachectic, other (Intubated and unresponsive) - EENT Eyes: Present: PERRL - Respiratory Respiratory effort: normal Respiratory: bilateral: rhonchi - Cardiovascular Rhythm: regular Heart Sounds: Present: S1 & S2 - Extremities Extremities: no ischemia, pulses intact, pulses symmetrical, abnormal (LUE and BLE contractions. Sacral wounds noted(POA)) Peripheral Pulses: within normal limits - Abdominal General gastrointestinal: soft, non-distended, normal bowel sounds - Integumentary Integumentary: Present: warm, dry - Psychiatric Psychiatric: other (Intubated, unresponsive.) - Neurologic Neurologic: other (Intubated, unresponsive. Open eyes spontaneously, does not tract, does not follow any commands) - Allied Health Allied health notes reviewed: nursing, case management - Constitutional Vitals: Temp Pulse Resp BP Pulse Ox 100.0 F H 79 22 139/74 100 04/21/22 12:00 04/21/22 12:00 04/21/22 12:00 04/21/22 12:00 04/21/22 12:00 HEART Score - HEART Score Troponin: Troponin T 0.064 ng/mL (0.00-0.029) H 04/20/22 02:11 Results - Labs CBC & Chem 7: 04/21/22 04:30 04/21/22 04:30 Labs: Laboratory Last Values WBC 14.9 K/mm3 (4.5-11.0) H 04/21/22 04:30 RBC 2.56 M/mm3 (3.65-5.03) L 04/21/22 04:30 Hgb 7.6 gm/dl (10.1-14.3) L 04/21/22 04:30 Hct 24.2 % (30.3-42.9) L 04/21/22 04:30 MCV 95 fl (79-97) 04/21/22 04:30 MCH 30 pg (28-32) 04/21/22 04:30 MCHC 32 % (30-34) 04/21/22 04:30 RDW 16.5 % (13.2-15.2) H 04/21/22 04:30 Plt Count 276 K/mm3 (140-440) 04/21/22 04:30 Add Manual Diff Complete 04/20/22 04:51 Total Counted 100 04/20/22 04:51 Seg Neutrophils % Senior Care Assistant 04/19/22 05:26 Seg Neuts % (Manual) 94.0 % (40.0-70.0) H 04/20/22 04:51 Band Neutrophils % 0 % 04/20/22 04:51 Lymphocytes % (Manual) 6.0 % (13.4-35.0) L 04/20/22 04:51 Reactive Lymphs % (Man) 0 % 04/20/22 04:51 Monocytes % (Manual) 0 % (0.0-7.3) 04/20/22 04:51 Eosinophils % (Manual) 0 % (0.0-4.3) 04/20/22 04:51 Basophils % (Manual) 0 % (0.0-1.8) 04/20/22 04:51 Metamyelocytes % 0 % 04/20/22 04:51 Myelocytes % 0 % 04/20/22 04:51 Promyelocytes % 0 % 04/20/22 04:51 Blast Cells % 0 % 04/20/22 04:51 Nucleated RBC % 1.0 % (0.0-0.9) H 04/20/22 04:51 Seg Neutrophils # Man 16.7 K/mm3 (1.8-7.7) H 04/20/22 04:51 Band Neutrophils # 0.0 K/mm3 04/20/22 04:51 Lymphocytes # (Manual) 1.1 K/mm3 (1.2-5.4) L 04/20/22 04:51 Abs React Lymphs (Man) 0.0 K/mm3 04/20/22 04:51 Monocytes # (Manual) 0.0 K/mm3 (0.0-0.8) 04/20/22 04:51 Eosinophils # (Manual) 0.0 K/mm3 (0.0-0.4) 04/20/22 04:51 Basophils # (Manual) 0.0 K/mm3 (0.0-0.1) 04/20/22 04:51 Metamyelocytes # 0.0 K/mm3 04/20/22 04:51 Myelocytes # 0.0 K/mm3 04/20/22 04:51 Promyelocytes # 0.0 K/mm3 04/20/22 04:51 Blast Cells # 0.0 K/mm3 04/20/22 04:51 WBC Morphology Not Reportable 04/20/22 04:51 Hypersegmented Neuts Not Reportable 04/20/22 04:51 Hyposegmented Neuts Not Reportable 04/20/22 04:51 Hypogranular Neuts Not Reportable 04/20/22 04:51 Smudge Cells Not Reportable 04/20/22 04:51 Toxic Granulation Not Reportable 04/20/22 04:51 Toxic Vacuolation Not Reportable 04/20/22 04:51 Dohle Bodies Not Reportable 04/20/22 04:51 Pelger-Huet Anomaly Not Reportable 04/20/22 04:51 Marina Rods Not Reportable 04/20/22 04:51 Platelet Estimate Consistent w auto 04/20/22 04:51 Clumped Platelets Not Reportable 04/20/22 04:51 Plt Clumps, EDTA Not Reportable 04/20/22 04:51 Large Platelets Not Reportable 04/20/22 04:51 Giant Platelets Not Reportable 04/20/22 04:51 Platelet Satelliting Not Reportable 04/20/22 04:51 Plt Morphology Comment Not Reportable 04/20/22 04:51 RBC Morphology Not Reportable 04/20/22 04:51 Dimorphic RBCs Not Reportable 04/20/22 04:51 Polychromasia Few 04/20/22 04:51 Hypochromasia Not Reportable 04/20/22 04:51 Poikilocytosis Not Reportable 04/20/22 04:51 Anisocytosis Not Reportable 04/20/22 04:51 Microcytosis Not Reportable 04/20/22 04:51 Macrocytosis Not Reportable 04/20/22 04:51 Spherocytes Not Reportable 04/20/22 04:51 Pappenheimer Bodies Not Reportable 04/20/22 04:51 Sickle Cells Not Reportable 04/20/22 04:51 Target Cells Not Reportable 04/20/22 04:51 Tear Drop Cells Not Reportable 04/20/22 04:51 Ovalocytes Not Reportable 04/20/22 04:51 Stomatocytes 1+ 04/20/22 04:51 Helmet Cells Not Reportable 04/20/22 04:51 [place] Bodies Not Reportable 04/20/22 04:51 Laporte Rings Not Reportable 04/20/22 04:51 Deonte Cells Not Reportable 04/20/22 04:51 Bite Cells Not Reportable 04/20/22 04:51 Crenated Cell Not Reportable 04/20/22 04:51 Elliptocytes Not Reportable 04/20/22 04:51 Acanthocytes (Spur) Not Reportable 04/20/22 04:51 Rouleaux Not Reportable 04/20/22 04:51 Hemoglobin C Crystals Not Reportable 04/20/22 04:51 Schistocytes Not Reportable 04/20/22 04:51 Malaria parasites Not Reportable 04/20/22 04:51 Kevin Bodies Not Reportable 04/20/22 04:51 Hem Pathologist Commnt No 04/20/22 04:51 PT 15.5 Sec. (12.2-14.9) H 04/19/22 05:26 INR 1.08 (0.87-1.13) 04/19/22 05:26 APTT < 20.0 Sec. (24.2-36.6) L 04/19/22 05:26 ABG pH 7.473 pH Units (7.350-7.450) H 04/21/22 04:44 ABG pCO2 41.6 mm Hg 04/21/22 04:44 ABG pO2 119.6 mm Hg (80.0-90.0) H 04/21/22 04:44 ABG HCO3 29.8 mmol/L (20.0-26.0) H 04/21/22 04:44 ABG O2 Saturation 98.4 % (95.0-99.0) 04/21/22 04:44 ABG O2 Content 10.4 (0.0-44) 04/21/22 04:44 ABG Base Excess 5.7 mmol/L (-2.0-3.0) H 04/21/22 04:44 ABG Hemoglobin 7.5 gm/dl (12.0-16.0) L 04/21/22 04:44 ABG Carboxyhemoglobin 1.7 % (0.0-5.0) 04/21/22 04:44 ABG Methemoglobin 0.5 % (0.0-1.5) 04/21/22 04:44 Oxyhemoglobin 96.2 % (95.0-99.0) 04/21/22 04:44 FiO2 35 % 04/21/22 04:44 Sodium 149 mmol/L (137-145) H D 04/21/22 04:30 Potassium 2.3 mmol/L (3.6-5.0) L* D 04/21/22 04:30 Chloride 106.7 mmol/L (98-107) 04/21/22 04:30 Carbon Dioxide 30 mmol/L (22-30) D 04/21/22 04:30 Anion Gap 15 mmol/L 04/21/22 04:30 BUN 20 mg/dL (7-17) H 04/21/22 04:30 Creatinine 0.6 mg/dL (0.6-1.2) 04/21/22 04:30 Estimated GFR > 60 ml/min 04/21/22 04:30 BUN/Creatinine Ratio 33 % 04/21/22 04:30 Glucose 236 mg/dL (65-100) H 04/21/22 04:30 POC Glucose 169 mg/dL (70-105) H 04/21/22 11:50 Lactic Acid 2.90 mmol/L (0.7-2.0) H* 04/21/22 04:30 Calcium 8.5 mg/dL (8.4-10.2) 04/21/22 04:30 Phosphorus 2.70 mg/dL (2.5-4.5) 04/21/22 04:30 Magnesium 1.90 mg/dL (1.7-2.3) 04/21/22 04:30 Iron 43 ug/dL (37-170) 04/19/22 05:26 TIBC 252 mcg/dL (250-450) 04/19/22 05:26 Ferritin 142.5 ng/mL (10.0-200.0) 04/19/22 05:26 Total Bilirubin 0.40 mg/dL (0.1-1.2) 04/20/22 04:51 AST 33 units/L (5-40) 04/20/22 04:51 ALT 20 units/L (7-56) 04/20/22 04:51 Alkaline Phosphatase 72 units/L (35-129) 04/20/22 04:51 Total Creatine Kinase 63 units/L (30-135) 04/19/22 05:26 Troponin T 0.064 ng/mL (0.00-0.029) H 04/20/22 02:11 Total Protein 6.7 g/dL (6.3-8.2) 04/20/22 04:51 Albumin 3.7 g/dL (3.9-5) L 04/20/22 04:51 Albumin/Globulin Ratio 1.2 % 04/20/22 04:51 Triglycerides 148 mg/dL (2-149) 04/19/22 21:15 Cholesterol 127 mg/dL (50-199) 04/19/22 21:15 LDL Cholesterol Direct 52 mg/dL (50-130) 04/19/22 21:15 HDL Cholesterol 52 mg/dL (40-59) 04/19/22 21:15 Cholesterol/HDL Ratio 2.44 % 04/19/22 21:15 Vitamin B12 726.7 pg/mL (211-911) 04/19/22 05:26 Folate 20.00 ng/mL (7.3-26.0) 04/19/22 05:26 TSH 4.550 mlU/mL (0.270-4.200) H 04/19/22 05:26 Free T4 0.81 ng/dL (0.76-1.46) 04/20/22 04:51 Urine Color Yellow (Yellow) 04/19/22 05:30 Urine Turbidity Clear (Clear) 04/19/22 05:30 Specific [place] (Man) 1.010 (1.003-1.030) 04/19/22 05:30 Ur Protein (Man) 1+ mg/dL (Negative) 04/19/22 05:30 Ur Ketones (Man) Negative (Negative) 04/19/22 05:30 Ur Nitrite (Man) Negative (Negative) 04/19/22 05:30 Urine Bilirubin (Man) Small (Negative) 04/19/22 05:30 Urine Ictotest Negative (Negative) 04/19/22 05:30 Leukocyte Esterase (Man) Trace (Negative) 04/19/22 05:30 Urine WBC (Auto) 4.0 /HPF (0.0-6.0) 04/19/22 05:30 Urine RBC (Auto) 1.0 /HPF (0.0-6.0) 04/19/22 05:30 U Epithel Cells (Auto) < 1.0 /HPF (0-13.0) 04/19/22 05:30 Urine Bacteria (Auto) 1+ /HPF (Negative) 04/19/22 05:30 Urine RBC (Manual) Negative (Negative) 04/19/22 05:30 Hyaline Casts 1 /LPF 04/19/22 05:30 Granular Casts 10 /LPF 04/19/22 05:30 Urine Mucus Few /HPF 04/19/22 05:30 Urine Yeast (Budding) Few /HPF 04/19/22 05:30 SARS-CoV-2 (PCR) Negative (Negative) 04/19/22 12:01 Blood Type B POSITIVE 04/19/22 06:00 Antibody Screen Negative 04/19/22 06:00 Crossmatch See Detail 04/19/22 06:00 Microbiology: Microbiology 04/19/22 05:25 Peripheral/Venous Blood Culture - Preliminary NO GROWTH AFTER 48 HOURS 04/19/22 05:26 Peripheral/Venous Blood Culture - Preliminary NO GROWTH AFTER 48 HOURS 04/19/22 05:10 Tracheal Aspirate Sputum Culture - Preliminary 04/19/22 06:29 Tracheal Aspirate Sputum Culture - Preliminary Rosales/IV: Voiding Method Indwelling Catheter Active Medications - Current Medications Current Medications: Generic Name Dose Route Start Last Admin Trade Name Freq PRN Reason Stop Dose Admin Acetaminophen 650 mg 04/19/22 09:00 Acetaminophen 650 Mg Rect Supp CO Q6H PRN Pain MILD(1-3)/Fever >100.5/FERRARI Albuterol 2.5 mg 04/19/22 09:00 Albuterol 2.5 Mg/3 Ml Nebu IH Q3HRT PRN Shortness Of Breath Albuterol/Ipratropium 1 ampul 04/19/22 09:00 04/21/22 08:48 Ipratropium/Albuterol Sulfate 3 Ml Ampul.Neb IH 1 ampul Q6HRT CONNIE Administration Amlodipine Besylate 10 mg 04/21/22 10:00 04/21/22 09:10 Amlodipine 10 Mg Tab PO 10 mg DAILY CONNIE Administration Lipase/Protease/Amylase 1 each 04/19/22 16:00 Lipase 10,500/Protease 25,000/Amylase 43,750 (Units) Dr Cap FEEDTUBE PRN PRN For Clogged Feeding Tube Dextrose 50 ml 04/19/22 08:30 Dextrose 50% In Water (25gm) 50 Ml Syringe IV Q30MIN PRN Hypoglycemia Protocol Hydrophilic Ointment 1 applic 04/19/22 05:15 Lip Therapy Vaseline TP Q2HR PRN Dry Lips Fentanyl Citrate 1,000 mcg in 100 mls @ 2.5 mls/hr 04/19/22 06:00 Fentanyl Drip Premix IV TITR CONNIE Protocol 25 MCG/HR Cefepime HCl 2 gm in 100 mls @ 200 mls/hr 04/19/22 18:00 04/21/22 06:16 Cefepime/Ns 2 Gm/100 Ml IV 200 mls/hr Q12H CONNIE Administration Insulin Glargine 15 units 04/21/22 22:00 Insulin Glargine 100 Units/Ml SUB-Q QHS CONNIE Insulin Human Lispro 0 unit 04/19/22 12:00 04/21/22 11:58 Insulin Lispro 100 Unit/Ml SUB-Q 3 unit Q6HR CONNIE Administration Protocol Lansoprazole 30 mg 04/21/22 10:00 04/21/22 09:09 Lansoprazole 30 Mg Solutab FEEDTUBE 30 mg BID CONNIE Administration Levetiracetam 1,000 mg 04/20/22 22:00 04/21/22 09:09 Levetiracetam 500 Mg/5 Ml Oral Liqd FEEDTUBE 1,000 mg BID CONNIE Administration Metoprolol Tartrate 12.5 mg 04/20/22 22:00 04/21/22 09:11 Metoprolol Tartrate 25 Mg Tab PO 12.5 mg BID CONNIE Administration Multi-Ingred Cream/Lotion/Oil/Oint 1 applic 04/19/22 05:15 Mineral Oil/Petrolatum, White Ophth Oint 3.5 Gm OU Q4HR PRN Dry Eye(s) Naloxone HCl 0.1 mg 04/19/22 09:00 Naloxone 0.4 Mg/1 Ml Inj IV Q2MIN PRN Res Rate </= 8 or 02 SAT < 92% Nystatin 500,000 unit 04/19/22 20:00 04/21/22 07:46 Nystatin 500,000 Unit/5 Ml Oral Liqd PO 500,000 unit TID CONNIE Administration Senna/Docusate Sodium 1 tab 04/19/22 10:00 04/21/22 09:09 Sennosides/Docusate Sodium 8.6/50 Mg Tab FEEDTUBE 1 tab BID CONNIE Administration Simple Syrup 15 ml 04/19/22 16:00 Simple Syrup 15 Ml FEEDTUBE PRN PRN Hypoglycemia Simple Syrup 30 ml 04/19/22 16:00 Simple Syrup 15 Ml FEEDTUBE PRN PRN Hypoglycemia Sodium Bicarbonate 325 mg 04/19/22 16:00 Sodium Bicarbonate 325 Mg Tab FEEDTUBE PRN PRN For Clogged Feeding Tube Sodium Chloride 10 ml 04/19/22 10:00 04/21/22 09:13 Sodium Chloride 0.9% 10 Ml Flush Syringe IV 10 ml BID CONNIE Administration Sodium Chloride 10 ml 04/19/22 09:00 Sodium Chloride 0.9% 10 Ml Flush Syringe IV PRN PRN LINE FLUSH Nutrition/Malnutrition Assess - Dietary Evaluation Nutrition/Malnutrition Findings: Nutrition Notes Start: 04/19/22 14:07 Freq: Status: Active Protocol: Document 04/21/22 09:18 CARMEN (Rec: 04/21/22 09:37 CARMEN [id number]) Nutrition Notes Initial or Follow up Brief Note Current Diagnosis Diabetes,Sepsis,Hypertension, Respiratory Failure,Stroke Other Pertinent Diagnosis COVID-19/Pneumonia pui, UTI, Anemia, GI Bleed, Metabolic Encephalopathy... Current Diet TF-Glucerna 1.2 Sarbjit @ 50 ml/hr (from D 04/19). Height 5 ft 4 in Weight 61.6 kg Mckenzie Body Weight (kg) 54.54 BMI 23.3 Weight change and time frame No body weight change reporterd in 2 days. Weight Status Appropriate Subjective/Other Information RD consult for routine F/U on TF tolerance/continuation. TF continues as prtescribed, no further information available at the time, will rewassess at F/U. Pt continues on Mechanical Ventilation, O2 saturation @ 100%, according to Physical Assessment History notes. Pt is now DNR status, according to CM notes. Percent of energy/protein needs met: Prescribed TF-Glucerna 1.2 Sarbjit @ 50 ml/hr provides for energy/protein needs (1,450 Kcal/73 g) during LOS, 98% Kcal; 100% AA. #1 Nutrition Diagnosis Inadequate oral intake Diagnosis Progress(for reassessment Continues documentation) Is patient on ventilator? Yes Is Patient Ambulatory and/or Out of Bed No REE-([facility]-confined to bed) 1262.616 Kcal/Kg value to use for calculation 24 Approximate Energy Requirements Using 1478 kcal/Kg Calculation Used for Recommendations Kcal/kg Additional Notes Protein: 1-1.2 g/Kg ABW; 62-74 g/day. Fluids: 1 ml/Kcal, or as per MD. Nutrition Intervention Nutrition Support: Continue TF-Glucerna 1.2 Sarbjit @ 50 ml/hr. Flush: 85 ml water Q 4 hr, or as per MD. Kcal 1,450 Protein (gm) 73 Carbohydrates (gm) 138 Fat (gm) 73 Fluid (mL) 973 Fiber (gm) 19 % RDI: 98% Kcal; 100% AA. Goal #1 Provide at least 75% of energy /protein needs through Enteral Feeding during LOS. Follow-Up By: 04/28/22 Additional Comments Continue monitoring TF tolerance and BM. <RO WATTS - Last Filed: 04/22/22 07:37> Assessment and Plan Assessment and plan: I saw and evaluated the patient. I agree with the findings and the plan of care as documented in the Nurse Practitioner's~note, with the following corrections and additions. Hospitalist Physical - Constitutional Vitals: Temp Pulse Resp BP Pulse Ox 97.6 F 77 17 137/60 100 04/22/22 04:00 04/22/22 06:00 04/22/22 06:00 04/22/22 06:00 04/22/22 06:00 HEART Score - HEART Score Troponin: Troponin T 0.064 ng/mL (0.00-0.029) H 04/20/22 02:11 Results - Labs CBC & Chem 7: 04/22/22 04:32 04/22/22 04:32 Labs: Laboratory Last Values WBC 13.7 K/mm3 (4.5-11.0) H 04/22/22 04:32 RBC 2.60 M/mm3 (3.65-5.03) L 04/22/22 04:32 Hgb 7.7 gm/dl (10.1-14.3) L 04/22/22 04:32 Hct 24.5 % (30.3-42.9) L 04/22/22 04:32 MCV 94 fl (79-97) 04/22/22 04:32 MCH 30 pg (28-32) 04/22/22 04:32 MCHC 32 % (30-34) 04/22/22 04:32 RDW 18.0 % (13.2-15.2) H 04/22/22 04:32 Plt Count 276 K/mm3 (140-440) 04/22/22 04:32 Add Manual Diff Complete 04/20/22 04:51 Total Counted 100 04/20/22 04:51 Seg Neutrophils % Senior Care Assistant 04/19/22 05:26 Seg Neuts % (Manual) 94.0 % (40.0-70.0) H 04/20/22 04:51 Band Neutrophils % 0 % 04/20/22 04:51 Lymphocytes % (Manual) 6.0 % (13.4-35.0) L 04/20/22 04:51 Reactive Lymphs % (Man) 0 % 04/20/22 04:51 Monocytes % (Manual) 0 % (0.0-7.3) 04/20/22 04:51 Eosinophils % (Manual) 0 % (0.0-4.3) 04/20/22 04:51 Basophils % (Manual) 0 % (0.0-1.8) 04/20/22 04:51 Metamyelocytes % 0 % 04/20/22 04:51 Myelocytes % 0 % 04/20/22 04:51 Promyelocytes % 0 % 04/20/22 04:51 Blast Cells % 0 % 04/20/22 04:51 Nucleated RBC % 1.0 % (0.0-0.9) H 04/20/22 04:51 Seg Neutrophils # Man 16.7 K/mm3 (1.8-7.7) H 04/20/22 04:51 Band Neutrophils # 0.0 K/mm3 04/20/22 04:51 Lymphocytes # (Manual) 1.1 K/mm3 (1.2-5.4) L 04/20/22 04:51 Abs React Lymphs (Man) 0.0 K/mm3 04/20/22 04:51 Monocytes # (Manual) 0.0 K/mm3 (0.0-0.8) 04/20/22 04:51 Eosinophils # (Manual) 0.0 K/mm3 (0.0-0.4) 04/20/22 04:51 Basophils # (Manual) 0.0 K/mm3 (0.0-0.1) 04/20/22 04:51 Metamyelocytes # 0.0 K/mm3 04/20/22 04:51 Myelocytes # 0.0 K/mm3 04/20/22 04:51 Promyelocytes # 0.0 K/mm3 04/20/22 04:51 Blast Cells # 0.0 K/mm3 04/20/22 04:51 WBC Morphology Not Reportable 04/20/22 04:51 Hypersegmented Neuts Not Reportable 04/20/22 04:51 Hyposegmented Neuts Not Reportable 04/20/22 04:51 Hypogranular Neuts Not Reportable 04/20/22 04:51 Smudge Cells Not Reportable 04/20/22 04:51 Toxic Granulation Not Reportable 04/20/22 04:51 Toxic Vacuolation Not Reportable 04/20/22 04:51 Dohle Bodies Not Reportable 04/20/22 04:51 Pelger-Huet Anomaly Not Reportable 04/20/22 04:51 Marina Rods Not Reportable 04/20/22 04:51 Platelet Estimate Consistent w auto 04/20/22 04:51 Clumped Platelets Not Reportable 04/20/22 04:51 Plt Clumps, EDTA Not Reportable 04/20/22 04:51 Large Platelets Not Reportable 04/20/22 04:51 Giant Platelets Not Reportable 04/20/22 04:51 Platelet Satelliting Not Reportable 04/20/22 04:51 Plt Morphology Comment Not Reportable 04/20/22 04:51 RBC Morphology Not Reportable 04/20/22 04:51 Dimorphic RBCs Not Reportable 04/20/22 04:51 Polychromasia Few 04/20/22 04:51 Hypochromasia Not Reportable 04/20/22 04:51 Poikilocytosis Not Reportable 04/20/22 04:51 Anisocytosis Not Reportable 04/20/22 04:51 Microcytosis Not Reportable 04/20/22 04:51 Macrocytosis Not Reportable 04/20/22 04:51 Spherocytes Not Reportable 04/20/22 04:51 Pappenheimer Bodies Not Reportable 04/20/22 04:51 Sickle Cells Not Reportable 04/20/22 04:51 Target Cells Not Reportable 04/20/22 04:51 Tear Drop Cells Not Reportable 04/20/22 04:51 Ovalocytes Not Reportable 04/20/22 04:51 Stomatocytes 1+ 04/20/22 04:51 Helmet Cells Not Reportable 04/20/22 04:51 [place] Bodies Not Reportable 04/20/22 04:51 [place] Rings Not Reportable 04/20/22 04:51 Deonte Cells Not Reportable 04/20/22 04:51 Bite Cells Not Reportable 04/20/22 04:51 Crenated Cell Not Reportable 04/20/22 04:51 Elliptocytes Not Reportable 04/20/22 04:51 Acanthocytes (Spur) Not Reportable 04/20/22 04:51 Rouleaux Not Reportable 04/20/22 04:51 Hemoglobin C Crystals Not Reportable 04/20/22 04:51 Schistocytes Not Reportable 04/20/22 04:51 Malaria parasites Not Reportable 04/20/22 04:51 Kevin Bodies Not Reportable 04/20/22 04:51 Hem Pathologist Commnt No 04/20/22 04:51 PT 15.5 Sec. (12.2-14.9) H 04/19/22 05:26 INR 1.08 (0.87-1.13) 04/19/22 05:26 APTT < 20.0 Sec. (24.2-36.6) L 04/19/22 05:26 ABG pH 7.473 pH Units (7.350-7.450) H 04/21/22 04:44 ABG pCO2 41.6 mm Hg 04/21/22 04:44 ABG pO2 119.6 mm Hg (80.0-90.0) H 04/21/22 04:44 ABG HCO3 29.8 mmol/L (20.0-26.0) H 04/21/22 04:44 ABG O2 Saturation 98.4 % (95.0-99.0) 04/21/22 04:44 ABG O2 Content 10.4 (0.0-44) 04/21/22 04:44 ABG Base Excess 5.7 mmol/L (-2.0-3.0) H 04/21/22 04:44 ABG Hemoglobin 7.5 gm/dl (12.0-16.0) L 04/21/22 04:44 ABG Carboxyhemoglobin 1.7 % (0.0-5.0) 04/21/22 04:44 ABG Methemoglobin 0.5 % (0.0-1.5) 04/21/22 04:44 Oxyhemoglobin 96.2 % (95.0-99.0) 04/21/22 04:44 FiO2 35 % 04/21/22 04:44 Sodium 145 mmol/L (137-145) 04/22/22 04:32 Potassium 2.7 mmol/L (3.6-5.0) L* 04/22/22 04:32 Chloride 101.8 mmol/L (98-107) 04/22/22 04:32 Carbon Dioxide 27 mmol/L (22-30) 04/22/22 04:32 Anion Gap 19 mmol/L 04/22/22 04:32 BUN 15 mg/dL (7-17) 04/22/22 04:32 Creatinine 0.4 mg/dL (0.6-1.2) L 04/22/22 04:32 Estimated GFR > 60 ml/min 04/22/22 04:32 BUN/Creatinine Ratio 38 % 04/22/22 04:32 Glucose 168 mg/dL (65-100) H 04/22/22 04:32 POC Glucose 190 mg/dL (70-105) H 04/21/22 21:42 Lactic Acid 2.90 mmol/L (0.7-2.0) H* 04/21/22 04:30 Calcium 8.9 mg/dL (8.4-10.2) 04/22/22 04:32 Phosphorus 3.20 mg/dL (2.5-4.5) 04/22/22 04:32 Magnesium 1.90 mg/dL (1.7-2.3) 04/22/22 04:32 Iron 43 ug/dL (37-170) 04/19/22 05:26 TIBC 252 mcg/dL (250-450) 04/19/22 05:26 Ferritin 142.5 ng/mL (10.0-200.0) 04/19/22 05:26 Total Bilirubin 0.40 mg/dL (0.1-1.2) 04/20/22 04:51 AST 33 units/L (5-40) 04/20/22 04:51 ALT 20 units/L (7-56) 04/20/22 04:51 Alkaline Phosphatase 72 units/L (35-129) 04/20/22 04:51 Total Creatine Kinase 63 units/L (30-135) 04/19/22 05:26 Troponin T 0.064 ng/mL (0.00-0.029) H 04/20/22 02:11 Total Protein 6.7 g/dL (6.3-8.2) 04/20/22 04:51 Albumin 3.7 g/dL (3.9-5) L 04/20/22 04:51 Albumin/Globulin Ratio 1.2 % 04/20/22 04:51 Triglycerides 148 mg/dL (2-149) 04/19/22 21:15 Cholesterol 127 mg/dL (50-199) 04/19/22 21:15 LDL Cholesterol Direct 52 mg/dL (50-130) 04/19/22 21:15 HDL Cholesterol 52 mg/dL (40-59) 04/19/22 21:15 Cholesterol/HDL Ratio 2.44 % 04/19/22 21:15 Vitamin B12 726.7 pg/mL (211-911) 04/19/22 05:26 Folate 20.00 ng/mL (7.3-26.0) 04/19/22 05:26 TSH 4.550 mlU/mL (0.270-4.200) H 04/19/22 05:26 Free T4 0.81 ng/dL (0.76-1.46) 04/20/22 04:51 Urine Color Yellow (Yellow) 04/19/22 05:30 Urine Turbidity Clear (Clear) 04/19/22 05:30 Specific [place] (Man) 1.010 (1.003-1.030) 04/19/22 05:30 Ur Protein (Man) 1+ mg/dL (Negative) 04/19/22 05:30 Ur Ketones (Man) Negative (Negative) 04/19/22 05:30 Ur Nitrite (Man) Negative (Negative) 04/19/22 05:30 Urine Bilirubin (Man) Small (Negative) 04/19/22 05:30 Urine Ictotest Negative (Negative) 04/19/22 05:30 Leukocyte Esterase (Man) Trace (Negative) 04/19/22 05:30 Urine WBC (Auto) 4.0 /HPF (0.0-6.0) 04/19/22 05:30 Urine RBC (Auto) 1.0 /HPF (0.0-6.0) 04/19/22 05:30 U Epithel Cells (Auto) < 1.0 /HPF (0-13.0) 04/19/22 05:30 Urine Bacteria (Auto) 1+ /HPF (Negative) 04/19/22 05:30 Urine RBC (Manual) Negative (Negative) 04/19/22 05:30 Hyaline Casts 1 /LPF 04/19/22 05:30 Granular Casts 10 /LPF 04/19/22 05:30 Urine Mucus Few /HPF 04/19/22 05:30 Urine Yeast (Budding) Few /HPF 04/19/22 05:30 SARS-CoV-2 (PCR) Negative (Negative) 04/19/22 12:01 Blood Type B POSITIVE 04/19/22 06:00 Antibody Screen Negative 04/19/22 06:00 Crossmatch See Detail 04/19/22 06:00 Microbiology: Microbiology 04/19/22 05:25 Peripheral/Venous Blood Culture - Preliminary NO GROWTH AFTER 72 HOURS 04/19/22 05:26 Peripheral/Venous Blood Culture - Preliminary NO GROWTH AFTER 72 HOURS Rosales/IV: Voiding Method External Female Catheter Active Medications - Current Medications Current Medications: Generic Name Dose Route Start Last Admin Trade Name Freq PRN Reason Stop Dose Admin Acetaminophen 650 mg 04/19/22 09:00 Acetaminophen 650 Mg Rect Supp CO Q6H PRN Pain MILD(1-3)/Fever >100.5/FERRARI Albuterol 2.5 mg 04/19/22 09:00 Albuterol 2.5 Mg/3 Ml Nebu IH Q3HRT PRN Shortness Of Breath Albuterol/Ipratropium 1 ampul 04/19/22 09:00 04/22/22 01:18 Ipratropium/Albuterol Sulfate 3 Ml Ampul.Neb IH 1 ampul Q6HRT CONNIE Administration Amlodipine Besylate 10 mg 04/21/22 10:00 04/21/22 09:10 Amlodipine 10 Mg Tab PO 10 mg DAILY CONNIE Administration Lipase/Protease/Amylase 1 each 04/19/22 16:00 Lipase 10,500/Protease 25,000/Amylase 43,750 (Units) Dr Cap FEEDTUBE PRN PRN For Clogged Feeding Tube Dextrose 50 ml 04/19/22 08:30 Dextrose 50% In Water (25gm) 50 Ml Syringe IV Q30MIN PRN Hypoglycemia Protocol Hydrophilic Ointment 1 applic 04/19/22 05:15 Lip Therapy Vaseline TP Q2HR PRN Dry Lips Fentanyl Citrate 1,000 mcg in 100 mls @ 2.5 mls/hr 04/19/22 06:00 Fentanyl Drip Premix IV TITR CONNIE Protocol 25 MCG/HR Cefepime HCl 2 gm in 100 mls @ 200 mls/hr 04/19/22 18:00 04/22/22 05:59 Cefepime/Ns 2 Gm/100 Ml IV 200 mls/hr Q12H CONNIE Administration Potassium Chloride 10 meq in 100 mls @ 100 mls/hr 04/22/22 06:00 04/22/22 07:15 Kcl 10meq/100ml IV 04/22/22 09:59 100 mls/hr Q1H CONNIE Administration Insulin Glargine 15 units 04/21/22 22:00 04/21/22 21:43 Insulin Glargine 100 Units/Ml SUB-Q 15 units QHS CONNIE Administration Insulin Human Lispro 0 unit 04/19/22 12:00 04/22/22 05:58 Insulin Lispro 100 Unit/Ml SUB-Q 3 unit Q6HR CONNIE Administration Protocol Lansoprazole 30 mg 04/21/22 10:00 04/21/22 21:44 Lansoprazole 30 Mg Solutab FEEDTUBE 30 mg BID CONNIE Administration Levetiracetam 1,000 mg 04/20/22 22:00 04/21/22 21:44 Levetiracetam 500 Mg/5 Ml Oral Liqd FEEDTUBE 1,000 mg BID CONNIE Administration Metoprolol Tartrate 12.5 mg 04/20/22 22:00 04/21/22 21:44 Metoprolol Tartrate 25 Mg Tab PO 12.5 mg BID CONNIE Administration Multi-Ingred Cream/Lotion/Oil/Oint 1 applic 04/19/22 05:15 Mineral Oil/Petrolatum, White Ophth Oint 3.5 Gm OU Q4HR PRN Dry Eye(s) Naloxone HCl 0.1 mg 04/19/22 09:00 Naloxone 0.4 Mg/1 Ml Inj IV Q2MIN PRN Res Rate </= 8 or 02 SAT < 92% Nystatin 500,000 unit 04/19/22 20:00 04/21/22 21:43 Nystatin 500,000 Unit/5 Ml Oral Liqd PO 500,000 unit TID CONNIE Administration Senna/Docusate Sodium 1 tab 04/19/22 10:00 04/21/22 21:44 Sennosides/Docusate Sodium 8.6/50 Mg Tab FEEDTUBE 1 tab BID CONNIE Administration Simple Syrup 15 ml 04/19/22 16:00 Simple Syrup 15 Ml FEEDTUBE PRN PRN Hypoglycemia Simple Syrup 30 ml 04/19/22 16:00 Simple Syrup 15 Ml FEEDTUBE PRN PRN Hypoglycemia Sodium Bicarbonate 325 mg 04/19/22 16:00 Sodium Bicarbonate 325 Mg Tab FEEDTUBE PRN PRN For Clogged Feeding Tube Sodium Chloride 10 ml 04/19/22 10:00 04/21/22 23:46 Sodium Chloride 0.9% 10 Ml Flush Syringe IV 10 ml BID CONNIE Administration Sodium Chloride 10 ml 04/19/22 09:00 Sodium Chloride 0.9% 10 Ml Flush Syringe IV PRN PRN LINE FLUSH Nutrition/Malnutrition Assess - Dietary Evaluation Nutrition/Malnutrition Findings: Nutrition Notes Start: 04/19/22 14:0 7 Freq: Status: Active Protocol: Document 04/21/22 09:18 CARMEN (Rec: 04/21/22 09:37 CARMEN [id number]) Nutrition Notes Initial or Follow up Brief Note Current Diagnosis Diabetes,Sepsis,Hypertension, Respiratory Failure,Stroke Other Pertinent Diagnosis COVID-19/Pneumonia pui, UTI, Anemia, GI Bleed, Metabolic Encephalopathy... Current Diet TF-Glucerna 1.2 Sarbjit @ 50 ml/hr (from D 04/19). Height 5 ft 4 in Weight 61.6 kg Mck[place] Body Weight (kg) 54.54 BMI 23.3 Weight change and time frame No body weight change reporterd in 2 days. Weight Status Appropriate Subjective/Other Information RD consult for routine F/U on TF tolerance/continuation. TF continues as prtescribed, no further information available at the time, will rewassess at F/U. Pt continues on Mechanical Ventilation, O2 saturation @ 100%, according to Physical Assessment History notes. Pt is now DNR status, according to CM notes. Percent of energy/protein needs met: Prescribed TF-Glucerna 1.2 Sarbjit @ 50 ml/hr provides for energy/protein needs (1,450 Kcal/73 g) during LOS, 98% Kcal; 100% AA. #1 Nutrition Diagnosis Inadequate oral intake Diagnosis Progress(for reassessment Continues documentation) Is patient on ventilator? Yes Is Patient Ambulatory and/or Out of Bed No REE-(Wells-St. Jeor-confined to bed) 1262.616 Kcal/Kg value to use for calculation 24 Approximate Energy Requirements Using 1478 kcal/Kg Calculation Used for Recommendations Kcal/kg Additional Notes Protein: 1-1.2 g/Kg ABW; 62-74 g/day. Fluids: 1 ml/Kcal, or as per MD. Nutrition Intervention Nutrition Support: Continue TF-Glucerna 1.2 Sarbjit @ 50 ml/hr. Flush: 85 ml water Q 4 hr, or as per MD. Kcal 1,450 Protein (gm) 73 Carbohydrates (gm) 138 Fat (gm) 73 Fluid (mL) 973 Fiber (gm) 19 % RDI: 98% Kcal; 100% AA. Goal #1 Provide at least 75% of energy /protein needs through Enteral Feeding during LOS. Follow-Up By: 04/28/22 Additional Comments Continue monitoring TF tolerance and BM.
--- NOTE | 2022-04-21 14:06 | Progress Note ---
Assessment and Plan - Patient Problems (1) Respiratory failure Current Visit: Yes Status: Acute Plan to address problem: Frail elderly [facility] resident with advanced dementia, admitted with respiratory failure, sepsis, profound dehydration and multiple metabolic derangements. Borderline troponin finding in this clinical scenario is a likely nonspecific finding. No further cardiac work-up is indicated, will follow as needed. Subjective Date of service: 04/21/22 Principal diagnosis: AHRF; Sepsis; Severe anemia; Severe hypernatremia; DM II; H/O CVA Interval history: Patient was extubated today, currently breathing comfortably on facemask oxygen. On ekg monitor, there is a stable sinus rhythm at 85. Objective Vital Signs Temp Pulse Pulse Pulse Resp Resp Resp 04/21/22 13:36 83 20 04/21/22 13:10 75 30 H 04/21/22 12:00 100.0 F H 91 H 79 19 04/21/22 11:00 93 H 19 04/21/22 10:00 82 20 18 04/21/22 09:40 84 04/21/22 09:11 84 04/21/22 09:10 83 04/21/22 09:00 97 H 17 04/21/22 08:48 76 97 H 22 04/21/22 08:00 98.8 F 99 H 83 18 04/21/22 07:00 93 H 20 04/21/22 06:00 100 H 21 04/21/22 05:00 84 18 04/21/22 04:21 77 04/21/22 04:20 79 18 04/21/22 04:00 98.7 F 78 95 H 16 04/21/22 03:01 90 04/21/22 02:00 74 16 04/21/22 01:00 73 16 04/21/22 00:13 72 04/21/22 00:00 98.2 F 74 75 16 04/20/22 23:00 63 16 04/20/22 22:00 76 16 04/20/22 21:29 90 16 04/20/22 21:00 83 17 04/20/22 20:05 103 H 20 04/20/22 20:01 94 H 23 04/20/22 20:00 98.9 F 96 H 75 23 04/20/22 19:00 97 H 26 H 04/20/22 18:01 88 04/20/22 17:10 89 19 04/20/22 17:00 90 19 04/20/22 16:00 98.6 F 89 92 H 16 04/20/22 15:01 94 H 24 04/20/22 14:25 92 H 17 BP Pulse Ox 04/21/22 13:36 04/21/22 13:10 132/67 100 04/21/22 12:00 139/74 100 04/21/22 11:00 137/71 100 04/21/22 10:00 147/70 100 04/21/22 09:40 147/70 100 04/21/22 09:11 149/66 04/21/22 09:10 149/66 04/21/22 09:00 158/76 100 04/21/22 08:48 158/76 100 04/21/22 08:00 158/76 100 04/21/22 07:00 157/66 100 04/21/22 06:00 142/68 100 04/21/22 05:00 140/72 100 04/21/22 04:21 145/63 100 04/21/22 04:20 04/21/22 04:00 145/63 100 04/21/22 03:01 153/70 100 04/21/22 02:00 140/66 04/21/22 01:00 140/66 100 04/21/22 00:13 142/67 100 04/21/22 00:00 142/64 100 04/20/22 23:00 142/67 100 04/20/22 22:00 116/74 100 04/20/22 21:29 132/70 100 04/20/22 21:00 132/70 100 04/20/22 20:05 04/20/22 20:01 130/68 100 04/20/22 20:00 130/68 100 04/20/22 19:00 140/61 100 04/20/22 18:01 107/50 100 04/20/22 17:10 100 04/20/22 17:00 154/67 100 04/20/22 16:00 169/75 100 04/20/22 15:01 167/74 100 04/20/22 14:25 - Physical Examination General: No Apparent Distress, Cachectic HEENT: Positive: PERRL Neck: Positive: neck supple Cardiac: Positive: Reg Rate and Rhythm Lungs: Positive: Decreased Breath Sounds Neuro: Positive: Weakness (Generalized lethargy) Abdomen: Positive: Soft Skin: Positive: Clear Extremities: Absent: edema - Labs and Meds CBC 04/21/22 Range/Units 04:30 WBC 14.9 H (4.5-11.0) K/mm3 RBC 2.56 L (3.65-5.03) M/mm3 Hgb 7.6 L (10.1-14.3) gm/dl Hct 24.2 L (30.3-42.9) % Plt Count 276 (140-440) K/mm3 Comprehensive Metabolic Panel 04/20/22 04/21/22 Range/Units 13:57 04:30 Sodium 164 H* 149 H D (137-145) mmol/L Potassium 3.9 D 2.3 L* D (3.6-5.0) mmol/L Chloride 117.1 H 106.7 (98-107) mmol/L Carbon Dioxide 23 30 D (22-30) mmol/L BUN 23 H 20 H (7-17) mg/dL Creatinine 0.5 L 0.6 (0.6-1.2) mg/dL Glucose 177 H 236 H (65-100) mg/dL Calcium 8.5 8.5 (8.4-10.2) mg/dL - Allied health notes Allied health notes reviewed: nursing
[2022-04-21 15:40] LABS: Blood Urea Nitrogen 18 mg/dL (7-17); Calcium 8.6 mg/dL (8.4-10.2); Hemolysis Index 16
[2022-04-21 15:47] LABS: BUN/Creatinine Ratio 36
[2022-04-21] MEDS ORDERED: POTASSIUM CHLORIDE 20 MEQ PACKET FEEDTUBE SCH (15:56)
--- NOTE | 2022-04-21 17:14 | Electrocardiograph Report ---
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
[2022-04-21] MEDS: INSULIN GLARGINE 100 UNITS/ML SUB-Q SCH (21:43)
[2022-04-22] MEDS: IPRATROPIUM/ALBUTEROL SULFATE 3 ML AMPUL.NEB IH SCH ×3 (01:18→20:20)
[2022-04-22] MEDS: FREE WATER PO SCH ×3 (01:59→09:42)
[2022-04-22 05:07] LABS: Hematocrit 24.5 % (30.3-42.9); Hemoglobin 7.7 gm/dl (10.1-14.3); Mean Corpuscular HGB Conc 32 % (30-34); Mean Corpuscular Volume 94 fl (79-97); Platelet Count 276 K/mm3 (140-440)
[2022-04-22 05:28] LABS: Blood Urea Nitrogen 15 mg/dL (7-17); Calcium 8.9 mg/dL (8.4-10.2); Hemolysis Index 0
[2022-04-22 05:32] LABS: BUN/Creatinine Ratio 38
[2022-04-22] MEDS: INSULIN LISPRO 100 UNIT/ML SUB-Q SCH ×3 (05:58→19:15)
[2022-04-22] MEDS: CEFEPIME/NS 2 GM/100 ML 2 GM/100 ML BAG IV SCH ×2 (05:59→19:19)
[2022-04-22] MEDS: POTASSIUM CHLORIDE 10 MEQ 10 MEQ/100 ML BAG IV SCH ×4 (06:01→09:25)
--- NOTE | 2022-04-22 07:41 | Progress Note ---
Assessment and Plan - Patient Problems (1) Respiratory failure Current Visit: Yes Status: Acute Plan to address problem: Frail elderly [facility] resident with advanced dementia, admitted with respiratory failure, sepsis, profound dehydration and multiple metabolic derangements. Borderline troponin finding in this clinical scenario is a likely nonspecific finding. No further cardiac work-up is indicated, will follow as needed. Subjective Date of service: 04/22/22 Principal diagnosis: anemia Interval history: Patient is breathing comfortably on nasal O2, post extubation. No new cardiac complaints. On desk monitor, there is a sinus rhythm at 89. Objective Vital Signs Temp Pulse Pulse Pulse Resp Resp Resp 04/22/22 06:00 77 17 04/22/22 05:00 84 16 04/22/22 04:00 97.6 F 86 88 20 04/22/22 03:01 94 H 23 04/22/22 02:00 89 24 04/22/22 01:19 82 25 H 04/22/22 01:00 79 20 04/22/22 00:00 71 88 16 04/21/22 23:53 98.7 F 04/21/22 23:49 76 25 H 04/21/22 23:00 78 22 04/21/22 22:00 96 H 19 04/21/22 21:44 101 H 04/21/22 21:00 87 16 04/21/22 20:00 98.1 F 84 88 17 04/21/22 19:48 83 04/21/22 19:46 04/21/22 19:00 75 19 04/21/22 18:00 82 19 04/21/22 17:01 85 04/21/22 16:01 90 25 H 04/21/22 16:00 99.0 F 91 H 26 H 04/21/22 15:00 78 19 04/21/22 14:00 82 23 04/21/22 13:36 83 20 04/21/22 13:10 75 30 H 04/21/22 13:00 77 21 04/21/22 12:00 100.0 F H 91 H 79 19 04/21/22 11:00 93 H 19 04/21/22 10:00 82 20 18 04/21/22 09:40 84 20 04/21/22 09:11 84 04/21/22 09:10 83 04/21/22 09:00 97 H 17 04/21/22 08:48 76 97 H 22 04/21/22 08:00 98.8 F 99 H 83 18 BP Pulse Ox 04/22/22 06:00 137/60 100 04/22/22 05:00 146/60 100 04/22/22 04:00 140/68 100 04/22/22 03:01 128/65 100 04/22/22 02:00 129/72 100 04/22/22 01:19 04/22/22 01:00 126/62 100 04/22/22 00:00 117/66 100 04/21/22 23:53 04/21/22 23:49 132/51 100 04/21/22 23:00 132/51 100 04/21/22 22:00 120/50 99 04/21/22 21:44 122/53 04/21/22 21:00 122/53 100 04/21/22 20:00 112/47 100 04/21/22 19:48 04/21/22 19:46 100 04/21/22 19:00 121/58 100 04/21/22 18:00 136/58 100 04/21/22 17:01 147/69 100 04/21/22 16:01 131/59 100 04/21/22 16:00 100 04/21/22 15:00 131/59 98 04/21/22 14:00 138/63 96 04/21/22 13:36 04/21/22 13:10 132/67 100 04/21/22 13:00 132/67 100 04/21/22 12:00 139/74 100 04/21/22 11:00 137/71 100 04/21/22 10:00 147/70 100 04/21/22 09:40 147/70 100 04/21/22 09:11 149/66 04/21/22 09:10 149/66 04/21/22 09:00 158/76 100 04/21/22 08:48 158/76 100 04/21/22 08:00 158/76 100 - Physical Examination General: No Apparent Distress, Cachectic HEENT: Positive: PERRL Neck: Positive: neck supple Cardiac: Positive: Reg Rate and Rhythm Lungs: Positive: Decreased Breath Sounds Neuro: Positive: Weakness (Generalized lethargy) Abdomen: Positive: Soft Skin: Positive: Clear Extremities: Absent: edema - Labs and Meds CBC 04/22/22 Range/Units 04:32 WBC 13.7 H (4.5-11.0) K/mm3 RBC 2.60 L (3.65-5.03) M/mm3 Hgb 7.7 L (10.1-14.3) gm/dl Hct 24.5 L (30.3-42.9) % Plt Count 276 (140-440) K/mm3 Comprehensive Metabolic Panel 04/21/22 04/22/22 Range/Units 14:39 04:32 Sodium 148 H 145 (137-145) mmol/L Potassium 3.1 L D 2.7 L* (3.6-5.0) mmol/L Chloride 104.8 101.8 (98-107) mmol/L Carbon Dioxide 29 27 (22-30) mmol/L BUN 18 H 15 (7-17) mg/dL Creatinine 0.5 L 0.4 L (0.6-1.2) mg/dL Glucose 153 H 168 H (65-100) mg/dL Calcium 8.6 8.9 (8.4-10.2) mg/dL - Allied health notes Allied health notes reviewed: nursing
[2022-04-22] MEDS: NYSTATIN 500,000 UNIT/5 ML ORAL LIQD PO SCH ×3 (07:57→21:40)
--- NOTE | 2022-04-22 08:26 | Progress Note ---
Assessment and Plan 1. Hypernatremia: Hyponatremia secondary to dehydration. Received IV D5W. On tube water flushes. Sodium level is better. Follow Sodium level. 2. FEN: Hypokalemia, replete K, monitor. Replete lytes as needed. Monitor lytes and volume status. 3. Acute Resp failure: S/p extubated. 4. SIRS vs Sepsis: On abx. Followed by ID. 5. Severe anemia: S/p pRBC. GI evaluated, signed off. 6. Acute metabolic encephalopathy, POA: H/o Dementia. Monitor. Subjective: Patient was seen and examined at the bedside. Examination: General appearance: well-developed, appears stated age, no distress HEENT: atraumatic, no icterus, resisting exam Neck: trachea midline Respiratory: ctab Heart: S1S2, regular, no murmur Abdomen: soft, bowel sounds heard, NT Integumentary: no obvious rash Neurologic: stuporous Ext: no edema Subjective Date of service: 04/22/22 Principal diagnosis: anemia Objective - Vital Signs Vital signs: Vital Signs - 12hr 04/21/22 04/21/22 04/21/22 21:00 21:44 22:00 Temperature Pulse Rate 87 101 H 96 H Pulse Rate [ From Monitor] Pulse Rate [ Throughout] Respiratory 16 19 Rate Respiratory Rate [ Throughout] Blood Pressure 122/53 122/53 120/50 O2 Sat by Pulse 100 99 Oximetry 04/21/22 04/21/22 04/21/22 23:00 23:49 23:53 Temperature 98.7 F Pulse Rate 78 76 Pulse Rate [ From Monitor] Pulse Rate [ Throughout] Respiratory 22 25 H Rate Respiratory Rate [ Throughout] Blood Pressure 132/51 132/51 O2 Sat by Pulse 100 100 Oximetry 04/22/22 04/22/22 04/22/22 00:00 01:00 01:19 Temperature Pulse Rate 71 79 Pulse Rate [ 88 From Monitor] Pulse Rate [ 82 Throughout] Respiratory 16 20 Rate Respiratory 25 H Rate [ Throughout] Blood Pressure 117/66 126/62 O2 Sat by Pulse 100 100 Oximetry 04/22/22 04/22/22 04/22/22 02:00 03:01 04:00 Temperature 97.6 F Pulse Rate 89 94 H 86 Pulse Rate [ 88 From Monitor] Pulse Rate [ Throughout] Respiratory 24 23 20 Rate Respiratory Rate [ Throughout] Blood Pressure 129/72 128/65 140/68 O2 Sat by Pulse 100 100 100 Oximetry 04/22/22 04/22/22 04/22/22 05:00 06:00 07:37 Temperature Pulse Rate 84 77 Pulse Rate [ From Monitor] Pulse Rate [ 102 H Throughout] Respiratory 16 17 Rate Respiratory 22 Rate [ Throughout] Blood Pressure 146/60 137/60 O2 Sat by Pulse 100 100 Oximetry 04/22/22 07:55 Temperature Pulse Rate Pulse Rate [ From Monitor] Pulse Rate [ Throughout] Respiratory Rate Respiratory Rate [ Throughout] Blood Pressure O2 Sat by Pulse 100 Oximetry - Lab 04/23/22 05:48 04/23/22 05:48 Most recent lab results ABG pH 7.473 pH Units (7.350-7.450) H 04/21/22 04:44 ABG pCO2 41.6 mm Hg 04/21/22 04:44 ABG pO2 119.6 mm Hg (80.0-90.0) H 04/21/22 04:44 ABG HCO3 29.8 mmol/L (20.0-26.0) H 04/21/22 04:44 ABG O2 Saturation 98.4 % (95.0-99.0) 04/21/22 04:44 Calcium 8.9 mg/dL (8.4-10.2) 04/22/22 04:32 Phosphorus 3.20 mg/dL (2.5-4.5) 04/22/22 04:32 Magnesium 1.90 mg/dL (1.7-2.3) 04/22/22 04:32 Medications & Allergies - Medications Allergies/Adverse Reactions: Allergies No Known Allergies Allergy (Verified 03/15/21 10:30) Home Medications: Home Medications Medication Instructions Recorded Confirmed Last Taken Type Ferrous Sulfate [Iron 325 MG] 325 mg PO DAILY 03/17/21 04/19/22 Unknown History Lovastatin [Altoprev] 40 mg PO DAILY 03/17/21 04/19/22 Unknown History allopurinoL [Zyloprim] 300 mg PO QDAY 03/17/21 04/19/22 Unknown History amLODIPine 10 mg PO DAILY 03/17/21 04/19/22 Unknown History Aspirin [Adult Aspirin] 81 mg PO DAILY #30 tablet. 03/22/21 04/19/22 Unknown Rx Linagliptin [Tradjenta] 5 mg PO AUSTINIAB #30 tablet 03/22/21 04/19/22 Unknown Rx Insulin Glargine [Lantus VIAL] 10 units SUB-Q QHS #30 ml 11/04/21 04/19/22 Unknown Rx Lacosamide [Vimpat] 100 mg PO Q12HR #60 tablet 11/04/21 04/19/22 Unknown Rx Sennosides/Docusate [Senokot S] 2 tab FEEDTUBE BID #30 tablet 11/04/21 04/19/22 Unknown Rx levETIRAcetam [Keppra] 1,000 mg FEEDTUBE BID #600 ml 11/04/21 04/19/22 Unknown Rx Cholecalciferol Vit D3 [Vitamin D3 1,000 unit PO QDAY tablet 01/11/22 04/19/22 Unknown Rx 1,000 UNIT TAB] Metoprolol [Lopressor TAB] 25 mg PO Q8HR 30 Days #90 tablet 01/11/22 04/19/22 Unknown Rx Acetaminophen [Acetaminophen TAB] 650 mg PO Q4H PRN tablet 01/19/22 04/19/22 Unknown Rx Famotidine [Zantac-360 20 mg PO QDAY 04/19/22 04/19/22 Unknown History (Famotidine)] Insulin Lispro [Admelog] See Protocol SQ ACHS 04/19/22 04/19/22 Unknown History Magnesium Hydroxide [Milk of 400 mg PO QDAY PRN 04/19/22 04/19/22 Unknown History Magnesia] traMADoL [Ultram 50 MG tab] 50 mg PO Q6HR PRN 04/19/22 04/19/22 Unknown History Potassium Chloride 40 meq FEEDTUBE DAILY #7 packet 04/23/22 Unknown Rx Active Medications: Generic Name Dose Route Start Last Admin Trade Name Freq PRN Reason Stop Dose Admin Acetaminophen 650 mg 04/19/22 09:00 Acetaminophen 650 Mg Rect Supp HI Q6H PRN Pain MILD(1-3)/Fever >100.5/FERRARI Albuterol 2.5 mg 04/19/22 09:00 Albuterol 2.5 Mg/3 Ml Nebu IH Q3HRT PRN Shortness Of Breath Albuterol/Ipratropium 1 ampul 04/19/22 09:00 04/22/22 07:37 Ipratropium/Albuterol Sulfate 3 Ml Ampul.Neb IH 1 ampul Q6HRT CONNIE Administration Amlodipine Besylate 10 mg 04/21/22 10:00 04/21/22 09:10 Amlodipine 10 Mg Tab PO 10 mg DAILY CONNIE Administration Lipase/Protease/Amylase 1 each 04/19/22 16:00 Lipase 10,500/Protease 25,000/Amylase 43,750 (Units) Dr Cap FEEDTUBE PRN PRN For Clogged Feeding Tube Dextrose 50 ml 04/19/22 08:30 Dextrose 50% In Water (25gm) 50 Ml Syringe IV Q30MIN PRN Hypoglycemia Protocol Hydrophilic Ointment 1 applic 04/19/22 05:15 Lip Therapy Vaseline TP Q2HR PRN Dry Lips Fentanyl Citrate 1,000 mcg in 100 mls @ 2.5 mls/hr 04/19/22 06:00 Fentanyl Drip Premix IV TITR CONNIE Protocol 25 MCG/HR Cefepime HCl 2 gm in 100 mls @ 200 mls/hr 04/19/22 18:00 04/22/22 05:59 Cefepime/Ns 2 Gm/100 Ml IV 200 mls/hr Q12H CONNIE Administration Potassium Chloride 10 meq in 100 mls @ 100 mls/hr 04/22/22 06:00 04/22/22 08:20 Kcl 10meq/100ml IV 04/22/22 09:59 100 mls/hr Q1H CONNIE Administration Insulin Glargine 15 units 04/21/22 22:00 04/21/22 21:43 Insulin Glargine 100 Units/Ml SUB-Q 15 units QHS CONNIE Administration Insulin Human Lispro 0 unit 04/19/22 12:00 04/22/22 05:58 Insulin Lispro 100 Unit/Ml SUB-Q 3 unit Q6HR CONNIE Administration Protocol Lansoprazole 30 mg 04/21/22 10:00 04/21/22 21:44 Lansoprazole 30 Mg Solutab FEEDTUBE 30 mg BID CONNIE Administration Levetiracetam 1,000 mg 04/20/22 22:00 04/21/22 21:44 Levetiracetam 500 Mg/5 Ml Oral Liqd FEEDTUBE 1,000 mg BID CONNIE Administration Metoprolol Tartrate 12.5 mg 04/20/22 22:00 04/21/22 21:44 Metoprolol Tartrate 25 Mg Tab PO 12.5 mg BID CONNIE Administration Multi-Ingred Cream/Lotion/Oil/Oint 1 applic 04/19/22 05:15 Mineral Oil/Petrolatum, White Ophth Oint 3.5 Gm OU Q4HR PRN Dry Eye(s) Naloxone HCl 0.1 mg 04/19/22 09:00 Naloxone 0.4 Mg/1 Ml Inj IV Q2MIN PRN Res Rate </= 8 or 02 SAT < 92% Nystatin 500,000 unit 04/19/22 20:00 04/22/22 07:57 Nystatin 500,000 Unit/5 Ml Oral Liqd PO 500,000 unit TID CONNIE Administration Senna/Docusate Sodium 1 tab 04/19/22 10:00 04/21/22 21:44 Sennosides/Docusate Sodium 8.6/50 Mg Tab FEEDTUBE 1 tab BID CONNIE Administration Simple Syrup 15 ml 04/19/22 16:00 Simple Syrup 15 Ml FEEDTUBE PRN PRN Hypoglycemia Simple Syrup 30 ml 04/19/22 16:00 Simple Syrup 15 Ml FEEDTUBE PRN PRN Hypoglycemia Sodium Bicarbonate 325 mg 04/19/22 16:00 Sodium Bicarbonate 325 Mg Tab FEEDTUBE PRN PRN For Clogged Feeding Tube Sodium Chloride 10 ml 04/19/22 10:00 04/21/22 23:46 Sodium Chloride 0.9% 10 Ml Flush Syringe IV 10 ml BID CONNIE Administration Sodium Chloride 10 ml 04/19/22 09:00 Sodium Chloride 0.9% 10 Ml Flush Syringe IV PRN PRN LINE FLUSH
--- NOTE | 2022-04-22 08:53 | Progress Note ---
Assessment and Plan Cultures: 04/19/2022 blood culture: no growth so far 04/19/2022 COVID-19 PCR: Negative 04/19/2022 tracheal aspirate culture: Heavy growth of usual respiratory deja A/P: 87-year-old female with seizure disorder, prior CVA, hypertension, dementia, [facility] resident known to us from her previous hospitalizations, had COVID- 19 pneumonia in January 2022, then readmitted with possible aspiration pneumonia, treated with antibiotics was brought from the [facility] with hypoxia, weakness: #SIRS v/s sepsis: Chest x-ray with ?pneumonia in [place] base, possible atelectasis. Leukocytosis could be reactive to severe anemia. UA without any pyuria. No obvious source of infection identified yet. #Severe anemia: GI evaluted, signed off. #Lactic acidosis #Acute encephalopathy: Probably metabolic, sodium was 162 #Acute resp failure: on the vent. Recs: Stop cefepime tomorrow to complete total 5 days Will sign off. Please call with questions. Joe Terry MD, FACP, [facility] ([facility]) O: [phone] F: [phone] C: [phone] Subjective Date of service: 04/22/22 Principal diagnosis: anemia Interval history: Extubated. No fever. Does not talk or follow commands. Objective - Exam Narrative Exam: Physical Exam: Constitutional: opens eyes, no distress Head, Ears, Nose: Normocephalic, atraumatic. External ears, nose normal Eyes: Conjunctivae/corneas clear. No icterus. No ptosis. Neck: supple Oral: unable to be examined Cardiovascular: S1, S2 + Respiratory: AE fair bilaterally GI: Soft, bowel sounds + Musculoskeletal: No pedal edema, no cyanosis. Contractures, foot drop bilaterally Skin: No rash or abscess Hem/Lymphatic: No palpable cervical or supraclavicular nodes. No lymphangitis Psych: no agitation Neurological: opens eyes, doesn't interact - Constitutional Vitals: Vital Signs Temp Pulse Resp BP Pulse Ox 97.6 F 102 H 22 137/60 100 04/22/22 04:00 04/22/22 07:37 04/22/22 07:37 04/22/22 06:00 04/22/22 07:55 Temperature -Last 24 Hours Temperature 97.6 F Temperature 98.7 F Temperature 98.1 F Temperature 99.0 F Temperature 100.0 F - Labs CBC & Chem 7: 04/22/22 04:32 04/22/22 04:32 Labs: Abnormal lab results 04/21/22 04/21/22 04/21/22 Range/Units 05:19 11:50 14:39 WBC (4.5-11.0) K/mm3 RBC (3.65-5.03) M/mm3 Hgb (10.1-14.3) gm/dl Hct (30.3-42.9) % RDW (13.2-15.2) % Sodium 148 H (137-145) mmol/L Potassium 3.1 L D (3.6-5.0) mmol/L BUN 18 H (7-17) mg/dL Creatinine 0.5 L (0.6-1.2) mg/dL Glucose 153 H (65-100) mg/dL POC Glucose 235 H 169 H (70-105) mg/dL 04/21/22 04/21/22 04/22/22 Range/Units 17:34 21:42 04:32 WBC 13.7 H (4.5-11.0) K/mm3 RBC 2.60 L (3.65-5.03) M/mm3 Hgb 7.7 L (10.1-14.3) gm/dl Hct 24.5 L (30.3-42.9) % RDW 18.0 H (13.2-15.2) % Sodium (137-145) mmol/L Potassium (3.6-5.0) mmol/L BUN (7-17) mg/dL Creatinine (0.6-1.2) mg/dL Glucose (65-100) mg/dL POC Glucose 197 H 190 H (70-105) mg/dL 04/22/22 04/22/22 Range/Units 04:32 05:53 WBC (4.5-11.0) K/mm3 RBC (3.65-5.03) M/mm3 Hgb (10.1-14.3) gm/dl Hct (30.3-42.9) % RDW (13.2-15.2) % Sodium (137-145) mmol/L Potassium 2.7 L* (3.6-5.0) mmol/L BUN (7-17) mg/dL Creatinine 0.4 L (0.6-1.2) mg/dL Glucose 168 H (65-100) mg/dL POC Glucose 163 H (70-105) mg/dL
--- NOTE | 2022-04-22 09:26 | Progress Note ---
Assessment and Plan Acute hypoxemic resp failure on MVS Sepsis present on admission Severe anemia with possible gastrointestinal bleed Severe hypernatremia Hypokalemia Hyperglycemia Hypomagnesemia Non-ST elevated VT could be demand ischemia Baseline dementia [facility] resident Diabetes mellitus type 2 History of CVA Known history of seizure disorder - trial of extubation - hold tube feeds pre-extubation - BIPAP prn post extubation - complete Cefepime dosing - continue care as below for now otherwise; - Daily SAT's and SBT assessment as tolerated - continue to wean supplemental oxygen for target O2 sat's > 90% acutely - VAP bundle addressed - continue lung protective strategies - continue bronchodilators with pulmonary hygiene per RT - wean per pulmonary driven protocols otherwise - continue accuchecks resumed with glycemic control per SSI (While critically ill target blood glucose of 140-180 mg/dL; avoid hypoglycemia) - sedation prn for target RASS 0 to -1 - continue to avoid benzodiazepine's, reduce the possibility of delirium - complete AB's per ID rec's - prn analgesia per CPOT score - Maintenance of sleep-wake cycle, avoid delirium - continue enteral nutritional support at goal rate as tolerated - G.I. & VTE prophylaxis - PT/OT/ROM exercises - continue mobility protocols for pressure ulcer prophylaxis - Monitor hemodynamics closely - continue other care per attending / other consultants - discharge planning ongoing concurrently .... Re-evaluate in am & prn CONDITION: CRITICAL PROGNOSIS: GUARDED CODE STATUS: FULL CODE The high probability of a clinically significant, sudden or life-threatening deterioration of the [respiratory, cardiovascular & neurologic] system(s) required my full and direct attention, intervention and personal management. The aggregate critical care time was [34] minutes without overlap. Time includes spent on; [x] Data Review and interpretation [x] Patient assessment and monitoring of vital signs [x] Documentation [x] Medication orders and management Subjective Date of service: 04/22/22 Principal diagnosis: AHRF; Sepsis; Severe anemia; Severe hypernatremia; NSTEMI; DM II; H/O CVA Interval history: Patient is seen today for: Acute hypoxemic resp failure; Sepsis; Severe anemia; Severe hypernatremia; NSTEMI; Baseline dementia; DM II; H/O CVA; seizure disorder Seen and examined at bedside; 24hour events reviewed; nursing and respiratory care staff consulted; no adverse overnight events reported to me; resting peacefully in bed; Objective Vital Signs - 12hr 04/21/22 04/21/22 04/21/22 21:44 22:00 23:00 Temperature Pulse Rate 101 H 96 H 78 Pulse Rate [ From Monitor] Pulse Rate [ Throughout] Respiratory 19 22 Rate Respiratory Rate [ Throughout] Blood Pressure 122/53 120/50 132/51 O2 Sat by Pulse 99 100 Oximetry 04/21/22 04/21/22 04/22/22 23:49 23:53 00:00 Temperature 98.7 F Pulse Rate 76 71 Pulse Rate [ 88 From Monitor] Pulse Rate [ Throughout] Respiratory 25 H 16 Rate Respiratory Rate [ Throughout] Blood Pressure 132/51 117/66 O2 Sat by Pulse 100 100 Oximetry 04/22/22 04/22/22 04/22/22 01:00 01:19 02:00 Temperature Pulse Rate 79 89 Pulse Rate [ From Monitor] Pulse Rate [ 82 Throughout] Respiratory 20 24 Rate Respiratory 25 H Rate [ Throughout] Blood Pressure 126/62 129/72 O2 Sat by Pulse 100 100 Oximetry 04/22/22 04/22/22 04/22/22 03:01 04:00 05:00 Temperature 97.6 F Pulse Rate 94 H 86 84 Pulse Rate [ 88 From Monitor] Pulse Rate [ Throughout] Respiratory 23 20 16 Rate Respiratory Rate [ Throughout] Blood Pressure 128/65 140/68 146/60 O2 Sat by Pulse 100 100 100 Oximetry 04/22/22 04/22/22 04/22/22 06:00 07:00 07:37 Temperature Pulse Rate 77 87 Pulse Rate [ From Monitor] Pulse Rate [ 102 H Throughout] Respiratory 17 24 Rate Respiratory 22 Rate [ Throughout] Blood Pressure 137/60 150/66 O2 Sat by Pulse 100 100 Oximetry 04/22/22 04/22/22 07:55 08:00 Temperature 98.8 F Pulse Rate 107 H Pulse Rate [ From Monitor] Pulse Rate [ Throughout] Respiratory 24 Rate Respiratory Rate [ Throughout] Blood Pressure 139/63 O2 Sat by Pulse 100 100 Oximetry Constitutional: no acute distress, other (elderly female with normal respiratory effort at rest on MVS) Eyes: non-icteric ENT: oropharynx moist, other (ETT 24 cm LEO) Neck: supple, no lymphadenopathy, no JVD Effort: normal Ascultation: Bilateral: clear, diminished breath sounds Percussion: Bilateral: not dull Cardiovascular: regular rate and rhythm, other (S1,S2) Gastrointestinal: normoactive bowel sounds, soft, non-tender, non-distended Integumentary: decubitus ulcer (POA; Sacral) Extremities: no cyanosis, no edema, pulses normal, no ischemia or petechiae, other (left upper extremity, wrist contracture) Neurologic: pupils equal and round, unable to assess Psychiatric: other (unable to assess re: AMS) CBC and BMP: 04/22/22 04:32 04/22/22 04:32 ABG, PT/INR, D-dimer: ABG ABG pH 7.473 pH Units (7.350-7.450) H 04/21/22 04:44 ABG pCO2 41.6 mm Hg 04/21/22 04:44 ABG pO2 119.6 mm Hg (80.0-90.0) H 04/21/22 04:44 ABG O2 Saturation 98.4 % (95.0-99.0) 04/21/22 04:44 PT/INR, D-dimer PT 15.5 Sec. (12.2-14.9) H 04/19/22 05:26 INR 1.08 (0.87-1.13) 04/19/22 05:26 Abnormal lab findings: Abnormal Labs 04/19/22 04/19/22 04/19/22 05:26 05:26 05:26 WBC 19.6 H RBC 1.39 L Hgb 4.1 L* Hct 14.8 L* MCV 106 H MCHC 28 L RDW 30.4 H Seg Neuts % (Manual) 86.0 H Lymphocytes % (Manual) 10.0 L Nucleated RBC % 2.0 H Seg Neutrophils # Man 16.9 H Lymphocytes # (Manual) PT 15.5 H APTT < 20.0 L ABG pH ABG pO2 ABG HCO3 ABG O2 Saturation ABG Base Excess ABG Hemoglobin Oxyhemoglobin Sodium 162 H* Potassium 3.2 L Chloride 114.6 H BUN 42 H Creatinine Glucose 295 H POC Glucose Lactic Acid Phosphorus Magnesium Troponin T 0.086 H Total Protein 6.1 L Albumin 3.5 L TSH Crossmatch 04/19/22 04/19/22 04/19/22 05:26 05:26 05:26 WBC RBC Hgb Hct MCV MCHC RDW Seg Neuts % (Manual) Lymphocytes % (Manual) Nucleated RBC % Seg Neutrophils # Man Lymphocytes # (Manual) PT APTT ABG pH ABG pO2 ABG HCO3 ABG O2 Saturation ABG Base Excess ABG Hemoglobin Oxyhemoglobin Sodium Potassium Chloride BUN Creatinine Glucose POC Glucose Lactic Acid 8.60 H* Phosphorus Magnesium 2.60 H Troponin T Total Protein Albumin TSH 4.550 H Crossmatch 04/19/22 04/19/22 04/19/22 06:00 06:05 13:06 WBC RBC Hgb Hct MCV MCHC RDW Seg Neuts % (Manual) Lymphocytes % (Manual) Nucleated RBC % Seg Neutrophils # Man Lymphocytes # (Manual) PT APTT ABG pH ABG pO2 78.7 L ABG HCO3 28.3 H ABG O2 Saturation ABG Base Excess 3.9 H ABG Hemoglobin < 12.0 L Oxyhemoglobin 94.7 L Sodium Potassium Chloride BUN Creatinine Glucose POC Glucose 257 H Lactic Acid Phosphorus Magnesium Troponin T Total Protein Albumin TSH Crossmatch See Detail 04/19/22 04/19/22 04/19/22 15:51 17:42 21:15 WBC RBC Hgb Hct MCV MCHC RDW Seg Neuts % (Manual) Lymphocytes % (Manual) Nucleated RBC % Seg Neutrophils # Man Lymphocytes # (Manual) PT APTT ABG pH ABG pO2 ABG HCO3 ABG O2 Saturation ABG Base Excess ABG Hemoglobin Oxyhemoglobin Sodium 164 H* Potassium 3.2 L Chloride 116.5 H BUN 43 H Creatinine Glucose 286 H POC Glucose 288 H Lactic Acid 4.10 H* Phosphorus Magnesium Troponin T Total Protein Albumin TSH Crossmatch 04/19/22 04/19/22 04/19/22 21:15 21:15 23:30 WBC 19.2 H RBC 2.89 L Hgb 8.7 L D Hct 28.1 L D MCV MCHC RDW 15.9 H Seg Neuts % (Manual) Lymphocytes % (Manual) Nucleated RBC % Seg Neutrophils # Man Lymphocytes # (Manual) PT APTT ABG pH ABG pO2 ABG HCO3 ABG O2 Saturation ABG Base Excess ABG Hemoglobin Oxyhemoglobin Sodium Potassium Chloride BUN Creatinine Glucose POC Glucose 211 H Lactic Acid Phosphorus Magnesium Troponin T 0.057 H D Total Protein Albumin TSH Crossmatch 04/20/22 04/20/22 04/20/22 02:11 04:45 04:51 WBC 17.8 H RBC 2.91 L Hgb 8.6 L Hct 27.9 L MCV MCHC RDW 16.5 H Seg Neuts % (Manual) 94.0 H Lymphocytes % (Manual) 6.0 L Nucleated RBC % 1.0 H Seg Neutrophils # Man 16.7 H Lymphocytes # (Manual) 1.1 L PT APTT ABG pH 7.499 H ABG pO2 334.3 H ABG HCO3 34.3 H ABG O2 Saturation 99.5 H ABG Base Excess 10.1 H ABG Hemoglobin 9.9 L Oxyhemoglobin Sodium Potassium Chloride BUN Creatinine Glucose POC Glucose Lactic Acid Phosphorus Magnesium Troponin T 0.064 H Total Protein Albumin TSH Crossmatch 04/20/22 04/20/22 04/20/22 04:51 05:34 11:36 WBC RBC Hgb Hct MCV MCHC RDW Seg Neuts % (Manual) Lymphocytes % (Manual) Nucleated RBC % Seg Neutrophils # Man Lymphocytes # (Manual) PT APTT ABG pH ABG pO2 ABG HCO3 ABG O2 Saturation ABG Base Excess ABG Hemoglobin Oxyhemoglobin Sodium 163 H* Potassium 2.6 L* Chloride 117.9 H BUN 25 H Creatinine Glucose 251 H POC Glucose 186 H 141 H Lactic Acid Phosphorus Magnesium Troponin T Total Protein Albumin 3.7 L TSH Crossmatch 04/20/22 04/20/22 04/20/22 13:57 13:57 16:42 WBC RBC Hgb Hct MCV MCHC RDW Seg Neuts % (Manual) Lymphocytes % (Manual) Nucleated RBC % Seg Neutrophils # Man Lymphocytes # (Manual) PT APTT ABG pH ABG pO2 ABG HCO3 ABG O2 Saturation ABG Base Excess ABG Hemoglobin Oxyhemoglobin Sodium 164 H* Potassium Chloride 117.1 H BUN 23 H Creatinine 0.5 L Glucose 177 H POC Glucose 204 H Lactic Acid 2.50 H* Phosphorus 2.40 L Magnesium Troponin T Total Protein Albumin TSH Crossmatch 04/21/22 04/21/22 04/21/22 00:15 04:30 04:30 WBC 14.9 H RBC 2.56 L Hgb 7.6 L Hct 24.2 L MCV MCHC RDW 16.5 H Seg Neuts % (Manual) Lymphocytes % (Manual) Nucleated RBC % Seg Neutrophils # Man Lymphocytes # (Manual) PT APTT ABG pH ABG pO2 ABG HCO3 ABG O2 Saturation ABG Base Excess ABG Hemoglobin Oxyhemoglobin Sodium 149 H D Potassium 2.3 L* D Chloride BUN 20 H Creatinine Glucose 236 H POC Glucose 250 H Lactic Acid Phosphorus Magnesium Troponin T Total Protein Albumin TSH Crossmatch 04/21/22 04/21/22 04/21/22 04:30 04:44 05:19 WBC RBC Hgb Hct MCV MCHC RDW Seg Neuts % (Manual) Lymphocytes % (Manual) Nucleated RBC % Seg Neutrophils # Man Lymphocytes # (Manual) PT APTT ABG pH 7.473 H ABG pO2 119.6 H ABG HCO3 29.8 H ABG O2 Saturation ABG Base Excess 5.7 H ABG Hemoglobin 7.5 L Oxyhemoglobin Sodium Potassium Chloride BUN Creatinine Glucose POC Glucose 235 H Lactic Acid 2.90 H* Phosphorus Magnesium Troponin T Total Protein Albumin TSH Crossmatch 04/21/22 04/21/22 04/21/22 11:50 14:39 17:34 WBC RBC Hgb Hct MCV MCHC RDW Seg Neuts % (Manual) Lymphocytes % (Manual) Nucleated RBC % Seg Neutrophils # Man Lymphocytes # (Manual) PT APTT ABG pH ABG pO2 ABG HCO3 ABG O2 Saturation ABG Base Excess ABG Hemoglobin Oxyhemoglobin Sodium 148 H Potassium 3.1 L D Chloride BUN 18 H Creatinine 0.5 L Glucose 153 H POC Glucose 169 H 197 H Lactic Acid Phosphorus Magnesium Troponin T Total Protein Albumin TSH Crossmatch 04/21/22 04/22/22 04/22/22 21:42 04:32 04:32 WBC 13.7 H RBC 2.60 L Hgb 7.7 L Hct 24.5 L MCV MCHC RDW 18.0 H Seg Neuts % (Manual) Lymphocytes % (Manual) Nucleated RBC % Seg Neutrophils # Man Lymphocytes # (Manual) PT APTT ABG pH ABG pO2 ABG HCO3 ABG O2 Saturation ABG Base Excess ABG Hemoglobin Oxyhemoglobin Sodium Potassium 2.7 L* Chloride BUN Creatinine 0.4 L Glucose 168 H POC Glucose 190 H Lactic Acid Phosphorus Magnesium Troponin T Total Protein Albumin TSH Crossmatch 04/22/22 05:53 WBC RBC Hgb Hct MCV MCHC RDW Seg Neuts % (Manual) Lymphocytes % (Manual) Nucleated RBC % Seg Neutrophils # Man Lymphocytes # (Manual) PT APTT ABG pH ABG pO2 ABG HCO3 ABG O2 Saturation ABG Base Excess ABG Hemoglobin Oxyhemoglobin Sodium Potassium Chloride BUN Creatinine Glucose POC Glucose 163 H Lactic Acid Phosphorus Magnesium Troponin T Total Protein Albumin TSH Crossmatch Allied health notes reviewed: nursing
[2022-04-22] MEDS: LANSOPRAZOLE 30 MG SOLUTAB FEEDTUBE SCH ×2 (09:41→21:39)
[2022-04-22] MEDS: SENNOSIDES/DOCUSATE SODIUM 8.6/50 MG TAB FEEDTUBE SCH ×2 (09:41→21:39)
[2022-04-22] MEDS: METOPROLOL TARTRATE 25 MG TAB PO SCH ×2 (09:41→21:39)
[2022-04-22] MEDS: amLODIPine 10 MG TAB PO SCH (09:42)
[2022-04-22] MEDS: levETIRAcetam 500 MG/5 ML ORAL LIQD FEEDTUBE SCH ×2 (09:44→21:40)
[2022-04-22] MEDS ORDERED: POTASSIUM CHLORIDE 20 MEQ PACKET FEEDTUBE SCH (11:00)
--- NOTE | 2022-04-22 11:53 | Progress Note ---
Assessment and Plan Assessment and plan: This is 87-year-old female from [facility] facility with known past medical history of HTN, CVA, DM, GERD, dementia, dysphagia s/p PEG-Tube placement, and renal disease admitted for severe anemia with possible GI bleed, sepsis, and acute hypoxic respiratory failure requiring ventilatory support. Hospital Course to Date: 04/20: Remains on the vent, tolerating PSV trial this am, plan to wean for possible extubation per CCM. Patient remains on octreotide and protonix gtts. s/p 2units of PRBCs, H&H stable, no s/s of any active bleeding. Tolerating TF. GI recommendations noted, no plan for any intervention at this time. Will D/C octreotide gtt and switched PPI to PO BID. Still with severe hypernatremia despite continuous IVF hydration, now with hypokelemia. FWF added and K replet ed, will also consult nephrology for further recs. Continue to monitor and replace electrolytes as needed. SSI adjusted and lantus added Qhs for hyperglycemia. 04/21: Tolerating PSV trial this am, plan for possible extubation today per CCM. Hypernatremia improved, still hypokalemic D5W gtt D/cristino and FWF adjusted. Nephrology is following. Lantus adjusted due to hyperglycemia 04/22: Patient remains very lethargic extubated yesterday maintaining her sats. Continues have persistent hypokalemia requiring replacement therapy. I have reconciled her home medication which is going via her PEG tube. We will contact family today to discuss goals of care. Patient will be transferred to the medical floor for continued management. We will recheck electrolytes in a.m. Luekocytosis is improving. I did discuss with the son and updated the overall clinical condition. Aspiration precautions. Assessment and Plan #Acute Hypoxic Respiratory Failure #Possible Aspiration - Presented from [facility] with high fever, tachycardia, and hypoxic - Intubated in the Ed for airway protection on 04/19 - Purulent vs TF contents was suctioned during intubation - Initial CXR revealed worsening opacities at the mid-lower left lung reflecting atelectasis - Vent setting:CPAP- 35%,8 PS-8 - AM ABG noted - CCM consulted, appreciate recommendations - Continue IV Abx per ID and vent adjustment per CCM - VAP bundle addressed - Aspiration precaution HOB above 30 - Daily SBT trials as tolerated. Plan to wean for possible extubation - Daily ABG and CXR - Continue SPO2 monitoring for SPO2 goal above 92% #Severe Anemia with Possible Gastrointestinal Bleed - Presented with Hgb of 4.1, occult stool is positive. No s/s of any active bleeding - s/p octreotide and protonix gtt - S/p 2units of PRBCs - GI consulted, recommendations appreciated - No report of any active bleeding since admit, H&H stable - No plan for any interventions per GI - On PO protonix BID - Close monitoring for any s/s of any active bleeding - Continue to trend CBC - Transfuse for hgb less than 7 #Severe Hypernatremia #Hypokalemia #Hypomagnesemia - Probably secondary to hypovelemia/dehydration - Patient remains severely hypernatremic this am, now with hypokalemia - Remains on continuous IVF - FWF added Q4hrs, K repeleted - Nephrology consulted, appreciate recommendations - Strict intake and output - Monitor and replace electrolytes as needed #Sepsis (POA) #Possible Aspiration Pneumonia #Leukocytosis #Lactic Acidosis - Presented with with high fever, tachycardia, and hypoxic - Purulent vs TF contents was suctioned during intubation - Initial CXR revealed worsening opacities at the mid-lower left lung reflecting atelectasis - UA is unremarkable, Blood cultures with NGTD, sputum culture pending - ID consulted, appreciate recommendations - Continue current IV abx- Cefepine, Vanco - F/U on cultures - Daily CBC monitor #Acute Metabolic Encephalopathy #History of Seizure Disorder #H/o CVA and Dementia #Mcc Resident - Unresponsive on presentation, most likely secondary to above - bedbound and confused at baseline - Currently intubated, not on any sedations. open eyes spontaneously, does not track, does not follow any commands - Treat underlying factors as above - Resume home keppra - Seizure precaution - Aspiration precaution - Avoid benzodiazepine to reduce the possibility of delirium - PRN Analgesia for CPOT greater than 3 - Maintenance of sleep-wake cycle #Non-ST elevated WI (NSTEMI) #Hypertension - Presented with elevated Troponin, probable demand ischemia - Cardiology on consult, appreciated recommendations - Remains in SR on the monitor, no significant ST changes appreciated - SBP in the 150s-160s - Will resume home antihypertensive - Continue blood pressure monitor per protocol - Maintain SBP less than 160 #Type 2 Diabetes Mellitus with Hyperglycemia - BG check and SSI Q6hrs - Lantus added Qhs - Avoid hypoglycemia #GI/DVT Prophylaxis - PPI- Protonix - SCDs to bilateral lower extremities while in bed #Advance Care Planning - Disease education data, care plan, diagnoses, and prognosis were discussed with patient's son via phone. Patient is AND/DNR status. Patient's son acknowledged understanding and agreed with current care plan. History Interval history: Patient seen and examined this morning still very lethargic some crackles audibly heard. Not following much commands today. Hospitalist Physical - Physical exam Narrative exam: General appearance: Present: cachectic, stuporous - EENT Eyes: Present: PERRL - Respiratory Respiratory effort: normal Respiratory: bilateral: rhonchi - Cardiovascular Rhythm: regular Heart Sounds: Present: S1 & S2 - Extremities Extremities: no ischemia, pulses intact, pulses symmetrical, abnormal (LUE and BLE contractions. Sacral wounds noted(POA)) Peripheral Pulses: within normal limits - Abdominal General gastrointestinal: soft, non-distended, normal bowel sounds - Integumentary Integumentary: Present: warm, dry - Psychiatric Psychiatric: other lethargic - Neurologic Neurologic: other unresponsive. Open eyes spontaneously, does not tract, does not follow any commands) - Allied Health Allied health notes reviewed: nursing, case management - Constitutional Vitals: Temp Pulse Resp BP Pulse Ox 98.8 F 98 H 18 142/63 100 04/22/22 08:00 04/22/22 10:00 04/22/22 10:00 04/22/22 10:00 04/22/22 10:00 General appearance: Present: cachectic, other (Intubated and unresponsive) HEART Score - HEART Score Troponin: Troponin T 0.064 ng/mL (0.00-0.029) H 04/20/22 02:11 Results - Labs CBC & Chem 7: 04/22/22 04:32 04/22/22 04:32 Labs: Laboratory Last Values WBC 13.7 K/mm3 (4.5-11.0) H 04/22/22 04:32 RBC 2.60 M/mm3 (3.65-5.03) L 04/22/22 04:32 Hgb 7.7 gm/dl (10.1-14.3) L 04/22/22 04:32 Hct 24.5 % (30.3-42.9) L 04/22/22 04:32 MCV 94 fl (79-97) 04/22/22 04:32 MCH 30 pg (28-32) 04/22/22 04:32 MCHC 32 % (30-34) 04/22/22 04:32 RDW 18.0 % (13.2-15.2) H 04/22/22 04:32 Plt Count 276 K/mm3 (140-440) 04/22/22 04:32 Add Manual Diff Complete 04/20/22 04:51 Total Counted 100 04/20/22 04:51 Seg Neutrophils % Comb Capper 04/19/22 05:26 Seg Neuts % (Manual) 94.0 % (40.0-70.0) H 04/20/22 04:51 Band Neutrophils % 0 % 04/20/22 04:51 Lymphocytes % (Manual) 6.0 % (13.4-35.0) L 04/20/22 04:51 Reactive Lymphs % (Man) 0 % 04/20/22 04:51 Monocytes % (Manual) 0 % (0.0-7.3) 04/20/22 04:51 Eosinophils % (Manual) 0 % (0.0-4.3) 04/20/22 04:51 Basophils % (Manual) 0 % (0.0-1.8) 04/20/22 04:51 Metamyelocytes % 0 % 04/20/22 04:51 Myelocytes % 0 % 04/20/22 04:51 Promyelocytes % 0 % 04/20/22 04:51 Blast Cells % 0 % 04/20/22 04:51 Nucleated RBC % 1.0 % (0.0-0.9) H 04/20/22 04:51 Seg Neutrophils # Man 16.7 K/mm3 (1.8-7.7) H 04/20/22 04:51 Band Neutrophils # 0.0 K/mm3 04/20/22 04:51 Lymphocytes # (Manual) 1.1 K/mm3 (1.2-5.4) L 04/20/22 04:51 Abs React Lymphs (Man) 0.0 K/mm3 04/20/22 04:51 Monocytes # (Manual) 0.0 K/mm3 (0.0-0.8) 04/20/22 04:51 Eosinophils # (Manual) 0.0 K/mm3 (0.0-0.4) 04/20/22 04:51 Basophils # (Manual) 0.0 K/mm3 (0.0-0.1) 04/20/22 04:51 Metamyelocytes # 0.0 K/mm3 04/20/22 04:51 Myelocytes # 0.0 K/mm3 04/20/22 04:51 Promyelocytes # 0.0 K/mm3 04/20/22 04:51 Blast Cells # 0.0 K/mm3 04/20/22 04:51 WBC Morphology Not Reportable 04/20/22 04:51 Hypersegmented Neuts Not Reportable 04/20/22 04:51 Hyposegmented Neuts Not Reportable 04/20/22 04:51 Hypogranular Neuts Not Reportable 04/20/22 04:51 Smudge Cells Not Reportable 04/20/22 04:51 Toxic Granulation Not Reportable 04/20/22 04:51 Toxic Vacuolation Not Reportable 04/20/22 04:51 Dohle Bodies Not Reportable 04/20/22 04:51 Pelger-Huet Anomaly Not Reportable 04/20/22 04:51 Marina Rods Not Reportable 04/20/22 04:51 Platelet Estimate Consistent w auto 04/20/22 04:51 Clumped Platelets Not Reportable 04/20/22 04:51 Plt Clumps, EDTA Not Reportable 04/20/22 04:51 Large Platelets Not Reportable 04/20/22 04:51 Giant Platelets Not Reportable 04/20/22 04:51 Platelet Satelliting Not Reportable 04/20/22 04:51 Plt Morphology Comment Not Reportable 04/20/22 04:51 RBC Morphology Not Reportable 04/20/22 04:51 Dimorphic RBCs Not Reportable 04/20/22 04:51 Polychromasia Few 04/20/22 04:51 Hypochromasia Not Reportable 04/20/22 04:51 Poikilocytosis Not Reportable 04/20/22 04:51 Anisocytosis Not Reportable 04/20/22 04:51 Microcytosis Not Reportable 04/20/22 04:51 Macrocytosis Not Reportable 04/20/22 04:51 Spherocytes Not Reportable 04/20/22 04:51 Pappenheimer Bodies Not Reportable 04/20/22 04:51 Sickle Cells Not Reportable 04/20/22 04:51 Target Cells Not Reportable 04/20/22 04:51 Tear Drop Cells Not Reportable 04/20/22 04:51 Ovalocytes Not Reportable 04/20/22 04:51 Stomatocytes 1+ 04/20/22 04:51 Helmet Cells Not Reportable 04/20/22 04:51 [place] Bodies Not Reportable 04/20/22 04:51 [place] Rings Not Reportable 04/20/22 04:51 [place] Cells Not Reportable 04/20/22 04:51 Bite Cells Not Reportable 04/20/22 04:51 Crenated Cell Not Reportable 04/20/22 04:51 Elliptocytes Not Reportable 04/20/22 04:51 Acanthocytes (Spur) Not Reportable 04/20/22 04:51 Rouleaux Not Reportable 04/20/22 04:51 Hemoglobin C Crystals Not Reportable 04/20/22 04:51 Schistocytes Not Reportable 04/20/22 04:51 Malaria parasites Not Reportable 04/20/22 04:51 Kevin Bodies Not Reportable 04/20/22 04:51 Hem Pathologist Commnt No 04/20/22 04:51 PT 15.5 Sec. (12.2-14.9) H 04/19/22 05:26 INR 1.08 (0.87-1.13) 04/19/22 05:26 APTT < 20.0 Sec. (24.2-36.6) L 04/19/22 05:26 ABG pH 7.473 pH Units (7.350-7.450) H 04/21/22 04:44 ABG pCO2 41.6 mm Hg 04/21/22 04:44 ABG pO2 119.6 mm Hg (80.0-90.0) H 04/21/22 04:44 ABG HCO3 29.8 mmol/L (20.0-26.0) H 04/21/22 04:44 ABG O2 Saturation 98.4 % (95.0-99.0) 04/21/22 04:44 ABG O2 Content 10.4 (0.0-44) 04/21/22 04:44 ABG Base Excess 5.7 mmol/L (-2.0-3.0) H 04/21/22 04:44 ABG Hemoglobin 7.5 gm/dl (12.0-16.0) L 04/21/22 04:44 ABG Carboxyhemoglobin 1.7 % (0.0-5.0) 04/21/22 04:44 ABG Methemoglobin 0.5 % (0.0-1.5) 04/21/22 04:44 Oxyhemoglobin 96.2 % (95.0-99.0) 04/21/22 04:44 FiO2 35 % 04/21/22 04:44 Sodium 145 mmol/L (137-145) 04/22/22 04:32 Potassium 2.7 mmol/L (3.6-5.0) L* 04/22/22 04:32 Chloride 101.8 mmol/L (98-107) 04/22/22 04:32 Carbon Dioxide 27 mmol/L (22-30) 04/22/22 04:32 Anion Gap 19 mmol/L 04/22/22 04:32 BUN 15 mg/dL (7-17) 04/22/22 04:32 Creatinine 0.4 mg/dL (0.6-1.2) L 04/22/22 04:32 Estimated GFR > 60 ml/min 04/22/22 04:32 BUN/Creatinine Ratio 38 % 04/22/22 04:32 Glucose 168 mg/dL (65-100) H 04/22/22 04:32 POC Glucose 163 mg/dL (70-105) H 04/22/22 05:53 Lactic Acid 2.90 mmol/L (0.7-2.0) H* 04/21/22 04:30 Calcium 8.9 mg/dL (8.4-10.2) 04/22/22 04:32 Phosphorus 3.20 mg/dL (2.5-4.5) 04/22/22 04:32 Magnesium 1.90 mg/dL (1.7-2.3) 04/22/22 04:32 Iron 43 ug/dL (37-170) 04/19/22 05:26 TIBC 252 mcg/dL (250-450) 04/19/22 05:26 Ferritin 142.5 ng/mL (10.0-200.0) 04/19/22 05:26 Total Bilirubin 0.40 mg/dL (0.1-1.2) 04/20/22 04:51 AST 33 units/L (5-40) 04/20/22 04:51 ALT 20 units/L (7-56) 04/20/22 04:51 Alkaline Phosphatase 72 units/L (35-129) 04/20/22 04:51 Total Creatine Kinase 63 units/L (30-135) 04/19/22 05:26 Troponin T 0.064 ng/mL (0.00-0.029) H 04/20/22 02:11 Total Protein 6.7 g/dL (6.3-8.2) 04/20/22 04:51 Albumin 3.7 g/dL (3.9-5) L 04/20/22 04:51 Albumin/Globulin Ratio 1.2 % 04/20/22 04:51 Triglycerides 148 mg/dL (2-149) 04/19/22 21:15 Cholesterol 127 mg/dL (50-199) 04/19/22 21:15 LDL Cholesterol Direct 52 mg/dL (50-130) 04/19/22 21:15 HDL Cholesterol 52 mg/dL (40-59) 04/19/22 21:15 Cholesterol/HDL Ratio 2.44 % 04/19/22 21:15 Vitamin B12 726.7 pg/mL (211-911) 04/19/22 05:26 Folate 20.00 ng/mL (7.3-26.0) 04/19/22 05:26 TSH 4.550 mlU/mL (0.270-4.200) H 04/19/22 05:26 Free T4 0.81 ng/dL (0.76-1.46) 04/20/22 04:51 Urine Color Yellow (Yellow) 04/19/22 05:30 Urine Turbidity Clear (Clear) 04/19/22 05:30 Specific [place] (Man) 1.010 (1.003-1.030) 04/19/22 05:30 Ur Protein (Man) 1+ mg/dL (Negative) 04/19/22 05:30 Ur Ketones (Man) Negative (Negative) 04/19/22 05:30 Ur Nitrite (Man) Negative (Negative) 04/19/22 05:30 Urine Bilirubin (Man) Small (Negative) 04/19/22 05:30 Urine Ictotest Negative (Negative) 04/19/22 05:30 Leukocyte Esterase (Man) Trace (Negative) 04/19/22 05:30 Urine WBC (Auto) 4.0 /HPF (0.0-6.0) 04/19/22 05:30 Urine RBC (Auto) 1.0 /HPF (0.0-6.0) 04/19/22 05:30 U Epithel Cells (Auto) < 1.0 /HPF (0-13.0) 04/19/22 05:30 Urine Bacteria (Auto) 1+ /HPF (Negative) 04/19/22 05:30 Urine RBC (Manual) Negative (Negative) 04/19/22 05:30 Hyaline Casts 1 /LPF 04/19/22 05:30 Granular Casts 10 /LPF 04/19/22 05:30 Urine Mucus Few /HPF 04/19/22 05:30 Urine Yeast (Budding) Few /HPF 04/19/22 05:30 SARS-CoV-2 (PCR) Negative (Negative) 04/19/22 12:01 Blood Type B POSITIVE 04/19/22 06:00 Antibody Screen Negative 04/19/22 06:00 Crossmatch See Detail 04/19/22 06:00 Microbiology: Microbiology 04/19/22 05:25 Peripheral/Venous Blood Culture - Preliminary NO GROWTH AFTER 72 HOURS 04/19/22 05:26 Peripheral/Venous Blood Culture - Preliminary NO GROWTH AFTER 72 HOURS Rosales/IV: Voiding Method External Female Catheter Active Medications - Current Medications Current Medications: Generic Name Dose Route Start Last Admin Trade Name Freq PRN Reason Stop Dose Admin Acetaminophen 650 mg 04/19/22 09:00 Acetaminophen 650 Mg Rect Supp VT Q6H PRN Pain MILD(1-3)/Fever >100.5/FERRARI Albuterol 2.5 mg 04/19/22 09:00 Albuterol 2.5 Mg/3 Ml Nebu IH Q3HRT PRN Shortness Of Breath Albuterol/Ipratropium 1 ampul 04/19/22 09:00 04/22/22 07:37 Ipratropium/Albuterol Sulfate 3 Ml Ampul.Neb IH 1 ampul Q6HRT CONNIE Administration Allopurinol 300 mg 04/23/22 10:00 Allopurinol 300 Mg Tab PO QDAY CONNIE Amlodipine Besylate 10 mg 04/21/22 10:00 04/22/22 09:42 Amlodipine 10 Mg Tab PO 10 mg DAILY CONNIE Administration Lipase/Protease/Amylase 1 each 04/19/22 16:00 Lipase 10,500/Protease 25,000/Amylase 43,750 (Units) Dr Collier FEEDTUBE PRN PRN For Clogged Feeding Tube Aspirin 81 mg 04/23/22 10:00 Aspirin Ec 81 Mg Tab PO DAILY [facility] Cholecalciferol 1,000 unit 04/23/22 10:00 Cholecalciferol (Vit D3) 1000 Unit (25 Mcg) Tab PO QDAY [facility] Dextrose 50 ml 04/19/22 08:30 Dextrose 50% In Water (25gm) 50 Ml Syringe IV Q30MIN PRN Hypoglycemia Protocol Ferrous Sulfate 325 mg 04/23/22 10:00 Ferrous Sulfate 325 Mg Tab PO DAILY [facility] Hydrophilic Ointment 1 applic 04/19/22 05:15 Lip Therapy Vaseline TP Q2HR PRN Dry Lips Cefepime HCl 2 gm in 100 mls @ 200 mls/hr 04/19/22 18:00 04/22/22 05:59 Cefepime/Ns 2 Gm/100 Ml IV 04/24/22 06:29 200 mls/hr Q12H CONNIE Administration Insulin Glargine 15 units 04/21/22 22:00 04/21/22 21:43 Insulin Glargine 100 Units/Ml SUB-Q 15 units QHS CONNIE Administration Insulin Human Lispro 0 unit 04/19/22 12:00 04/22/22 05:58 Insulin Lispro 100 Unit/Ml SUB-Q 3 unit Q6HR CONNIE Administration Protocol Lacosamide 100 mg 04/22/22 22:00 Lacosamide 100 Mg Tab PO Q12HR CONNIE Lansoprazole 30 mg 04/21/22 10:00 04/22/22 09:41 Lansoprazole 30 Mg Solutab FEEDTUBE 30 mg BID CONNIE Administration Levetiracetam 1,000 mg 04/20/22 22:00 04/22/22 09:44 Levetiracetam 500 Mg/5 Ml Oral Liqd FEEDTUBE 1,000 mg BID CONNIE Administration Metoprolol Tartrate 12.5 mg 04/20/22 22:00 04/22/22 09:41 Metoprolol Tartrate 25 Mg Tab PO 12.5 mg BID CONNIE Administration Miscellaneous Medication 40 mg 04/23/22 10:00 Lovastatin [Altoprev] PO DAILY CONNIE Multi-Ingred Cream/Lotion/Oil/Oint 1 applic 04/19/22 05:15 Mineral Oil/Petrolatum, White Ophth Oint 3.5 Gm OU Q4HR PRN Dry Eye(s) Naloxone HCl 0.1 mg 04/19/22 09:00 Naloxone 0.4 Mg/1 Ml Inj IV Q2MIN PRN Res Rate </= 8 or 02 SAT < 92% Nystatin 500,000 unit 04/19/22 20:00 04/22/22 07:57 Nystatin 500,000 Unit/5 Ml Oral Liqd PO 04/26/22 14:01 500,000 unit TID CONNIE Administration Potassium Chloride 40 meq 04/22/22 11:00 04/22/22 10:43 Potassium Chloride 20 Meq Packet FEEDTUBE 04/22/22 15:00 40 meq ONCE CONNIE Administration Senna/Docusate Sodium 1 tab 04/19/22 10:00 04/22/22 09:41 Sennosides/Docusate Sodium 8.6/50 Mg Tab FEEDTUBE 1 tab BID CONNIE Administration Simple Syrup 15 ml 04/19/22 16:00 Simple Syrup 15 Ml FEEDTUBE PRN PRN Hypoglycemia Simple Syrup 30 ml 04/19/22 16:00 Simple Syrup 15 Ml FEEDTUBE PRN PRN Hypoglycemia Sodium Bicarbonate 325 mg 04/19/22 16:00 Sodium Bicarbonate 325 Mg Tab FEEDTUBE PRN PRN For Clogged Feeding Tube Sodium Chloride 10 ml 04/19/22 10:00 04/22/22 09:45 Sodium Chloride 0.9% 10 Ml Flush Syringe IV 10 ml BID CONNIE Administration Sodium Chloride 10 ml 04/19/22 09:00 Sodium Chloride 0.9% 10 Ml Flush Syringe IV PRN PRN LINE FLUSH Nutrition/Malnutrition Assess - Dietary Evaluation Nutrition/Malnutrition Findings: Nutrition Notes Start: 04/19/22 14:07 Freq: Status: Active Protocol: Document 04/21/22 09:18 CARMEN (Rec: 04/21/22 09:37 CARMEN [id number]) Nutrition Notes Initial or Follow up Brief Note Current Diagnosis Diabetes,Sepsis,Hypertension, Respiratory Failure,Stroke Other Pertinent Diagnosis COVID-19/Pneumonia pui, UTI, Anemia, GI Bleed, Metabolic Encephalopathy... Current Diet TF-Glucerna 1.2 Sarbjit @ 50 ml/hr (from D 04/19). Height 5 ft 4 in Weight 61.6 kg [place] Body Weight (kg) 54.54 BMI 23.3 Weight change and time frame No body weight change reporterd in 2 days. Weight Status Appropriate Subjective/Other Information RD consult for routine F/U on TF tolerance/continuation. TF continues as prtescribed, no further information available at the time, will rewassess at F/U. Pt continues on Mechanical Ventilation, O2 saturation @ 100%, according to Physical Assessment History notes. Pt is now DNR status, according to CM notes. Percent of energy/protein needs met: Prescribed TF-Glucerna 1.2 Sarbjit @ 50 ml/hr provides for energy/protein needs (1,450 Kcal/73 g) during LOS, 98% Kcal; 100% AA. #1 Nutrition Diagnosis Inadequate oral intake Diagnosis Progress(for reassessment Continues documentation) Is patient on ventilator? Yes Is Patient Ambulatory and/or Out of Bed No REE-([place]-confined to bed) 1262.616 Kcal/Kg value to use for calculation 24 Approximate Energy Requirements Using 1478 kcal/Kg Calculation Used for Recommendations Kcal/kg Additional Notes Protein: 1-1.2 g/Kg ABW; 62-74 g/day. Fluids: 1 ml/Kcal, or as per MD. Nutrition Intervention Nutrition Support: Continue TF-Glucerna 1.2 Sarbjit @ 50 ml/hr. Flush: 85 ml water Q 4 hr, or as per MD. Kcal 1,450 Protein (gm) 73 Carbohydrates (gm) 138 Fat (gm) 73 Fluid (mL) 973 Fiber (gm) 19 % RDI: 98% Kcal; 100% AA. Goal #1 Provide at least 75% of energy /protein needs through Enteral Feeding during LOS. Follow-Up By: 04/28/22 Additional Comments Continue monitoring TF tolerance and BM.
[2022-04-22 17:03] LABS: BUN/Creatinine Ratio 33; Blood Urea Nitrogen 13 mg/dL (7-17); Hemolysis Index 16
[2022-04-22] MEDS ORDERED: LACOSAMIDE 100 MG TAB PO SCH (22:00)
[2022-04-22] MEDS: INSULIN GLARGINE 100 UNITS/ML SUB-Q SCH (22:59)
[2022-04-23] MEDS: IPRATROPIUM/ALBUTEROL SULFATE 3 ML AMPUL.NEB IH SCH ×4 (02:19→21:02)
[2022-04-23] MEDS: CEFEPIME/NS 2 GM/100 ML 2 GM/100 ML BAG IV SCH (05:39)
[2022-04-23] MEDS: INSULIN LISPRO 100 UNIT/ML SUB-Q SCH ×2 (06:40)
[2022-04-23 06:56] LABS: Hematocrit 26.5 % (30.3-42.9); Hemoglobin 8.2 gm/dl (10.1-14.3); Mean Corpuscular HGB Conc 31 % (30-34); Mean Corpuscular Volume 94 fl (79-97); Platelet Count 306 K/mm3 (140-440); Red Blood Count 2.82 M/mm3 (3.65-5.03); Red Cell Distribution Width 17.1 % (13.2-15.2)
[2022-04-23 07:11] LABS: Blood Urea Nitrogen 15 mg/dL (7-17); Calcium 8.9 mg/dL (8.4-10.2); Hemolysis Index 1
[2022-04-23 07:51] LABS: BUN/Creatinine Ratio 30
[2022-04-23] MEDS: NYSTATIN 500,000 UNIT/5 ML ORAL LIQD PO SCH (08:29)
--- NOTE | 2022-04-23 08:31 | Progress Note ---
Assessment and Plan Patient sleeping but open eyes on stimulation. Not following commands. Patient is on 2 litres O2 O2 saturation 100%. No acute respiratory distress. Patient afebrile. No leukocytosis. Blood pressure 115/75, pulse 106, respirations 20. Chest xray 04/21/22 reported Stable chest persistent diffuse interstitial coarsening with more focal opacities in the left lung base that may reflect infection versus atelectasis. Patient is on albuterol/atrovent aerosol treatments , Prevacid and cefepime. - Patient Problems (1) Acute respiratory failure with hypoxia Status: Acute Plan to address problem: On 2 litres O2. Albuterol/atrovent aerosol treatments. Continue Prevacid. (2) GIB (gastrointestinal bleeding) Status: Acute Plan to address problem: Management as per gastroenterology. (3) Atelectasis of both lungs Status: Acute Plan to address problem: Continue albuterol/atrovent aerosol treatments to improve mucociliary clearence. (4) Bilateral pneumonia Status: Acute Plan to address problem: Patient is on cefepime. (5) History of CVA with residual deficit Status: Acute Plan to address problem: Management as per primary care and neurology. (6) Hypertension Status: Acute Plan to address problem: Management as primary care. (7) Seizure disorder Status: Chronic Plan to address problem: Management as per neurology and primary care. (8) Type 2 diabetes mellitus Status: Chronic Plan to address problem: Management as primary care. Subjective Date of service: 04/23/22 Principal diagnosis: AHRF; Sepsis; Severe anemia; Severe hypernatremia; NSTEMI; DM II; H/O CVA Interval history: Patient sleeping but open eyes on stimulation. Not following commands. Patient is on 2 litres O2 O2 saturation 100%. No acute respiratory distress. Patient afebrile. No leukocytosis. Blood pressure 115/75, pulse 106, respirations 20. Chest xray 04/21/22 reported Stable chest persistent diffuse interstitial coarsening with more focal opacities in the left lung base that may reflect infection versus atelectasis. Patient is on albuterol/atrovent aerosol treatments , Prevacid and cefepime. Objective Vital Signs - 12hr 04/22/22 04/22/22 04/22/22 21:31 21:39 22:00 Temperature 98.8 F Pulse Rate 106 H 106 H 90 Pulse Rate [ Throughout] Respiratory 19 Rate Respiratory Rate [ Throughout] Blood Pressure 126/57 Blood Pressure 126/58 [Left] O2 Sat by Pulse 99 98 Oximetry 04/22/22 04/23/22 04/23/22 23:44 02:19 06:16 Temperature 99.2 F 98.4 F Pulse Rate 86 98 H Pulse Rate [ 93 H Throughout] Respiratory 19 20 Rate Respiratory 16 Rate [ Throughout] Blood Pressure 102/51 145/56 Blood Pressure [Left] O2 Sat by Pulse 98 100 Oximetry Constitutional: no acute distress, other (dementia.) Eyes: non-icteric ENT: oropharynx moist, other (ETT 24 cm LEO) Neck: supple, no lymphadenopathy, no JVD Effort: normal Ascultation: Bilateral: diminished breath sounds Percussion: Bilateral: not dull Cardiovascular: regular rate and rhythm, other (S1,S2) Gastrointestinal: normoactive bowel sounds, soft, non-tender, non-distended Integumentary: decubitus ulcer (POA; Sacral) Extremities: no cyanosis, no edema, pulses normal, no ischemia or petechiae, other (left upper extremity, wrist contracture) Neurologic: pupils equal and round, unable to assess Psychiatric: other (unable to assess re: AMS) CBC and BMP: 04/23/22 05:48 04/23/22 05:48 ABG, PT/INR, D-dimer: ABG ABG pH 7.473 pH Units (7.350-7.450) H 04/21/22 04:44 ABG pCO2 41.6 mm Hg 04/21/22 04:44 ABG pO2 119.6 mm Hg (80.0-90.0) H 04/21/22 04:44 ABG O2 Saturation 98.4 % (95.0-99.0) 04/21/22 04:44 PT/INR, D-dimer PT 15.5 Sec. (12.2-14.9) H 04/19/22 05:26 INR 1.08 (0.87-1.13) 04/19/22 05:26 Abnormal lab findings: Abnormal Labs 04/19/22 04/19/22 04/19/22 05:26 05:26 05:26 WBC 19.6 H RBC 1.39 L Hgb 4.1 L* Hct 14.8 L* MCV 106 H MCHC 28 L RDW 30.4 H Seg Neuts % (Manual) 86.0 H Lymphocytes % (Manual) 10.0 L Nucleated RBC % 2.0 H Seg Neutrophils # Man 16.9 H Lymphocytes # (Manual) PT 15.5 H APTT < 20.0 L ABG pH ABG pO2 ABG HCO3 ABG O2 Saturation ABG Base Excess ABG Hemoglobin Oxyhemoglobin Sodium 162 H* Potassium 3.2 L Chloride 114.6 H Carbon Dioxide BUN 42 H Creatinine Glucose 295 H POC Glucose Lactic Acid Phosphorus Magnesium Troponin T 0.086 H Total Protein 6.1 L Albumin 3.5 L TSH Crossmatch 04/19/22 04/19/22 04/19/22 05:26 05:26 05:26 WBC RBC Hgb Hct MCV MCHC RDW Seg Neuts % (Manual) Lymphocytes % (Manual) Nucleated RBC % Seg Neutrophils # Man Lymphocytes # (Manual) PT APTT ABG pH ABG pO2 ABG HCO3 ABG O2 Saturation ABG Base Excess ABG Hemoglobin Oxyhemoglobin Sodium Potassium Chloride Carbon Dioxide BUN Creatinine Glucose POC Glucose Lactic Acid 8.60 H* Phosphorus Magnesium 2.60 H Troponin T Total Protein Albumin TSH 4.550 H Crossmatch 04/19/22 04/19/22 04/19/22 06:00 06:05 13:06 WBC RBC Hgb Hct MCV MCHC RDW Seg Neuts % (Manual) Lymphocytes % (Manual) Nucleated RBC % Seg Neutrophils # Man Lymphocytes # (Manual) PT APTT ABG pH ABG pO2 78.7 L ABG HCO3 28.3 H ABG O2 Saturation ABG Base Excess 3.9 H ABG Hemoglobin < 12.0 L Oxyhemoglobin 94.7 L Sodium Potassium Chloride Carbon Dioxide BUN Creatinine Glucose POC Glucose 257 H Lactic Acid Phosphorus Magnesium Troponin T Total Protein Albumin TSH Crossmatch See Detail 04/19/22 04/19/22 04/19/22 15:51 17:42 21:15 WBC RBC Hgb Hct MCV MCHC RDW Seg Neuts % (Manual) Lymphocytes % (Manual) Nucleated RBC % Seg Neutrophils # Man Lymphocytes # (Manual) PT APTT ABG pH ABG pO2 ABG HCO3 ABG O2 Saturation ABG Base Excess ABG Hemoglobin Oxyhemoglobin Sodium 164 H* Potassium 3.2 L Chloride 116.5 H Carbon Dioxide BUN 43 H Creatinine Glucose 286 H POC Glucose 288 H Lactic Acid 4.10 H* Phosphorus Magnesium Troponin T Total Protein Albumin TSH Crossmatch 04/19/22 04/19/22 04/19/22 21:15 21:15 23:30 WBC 19.2 H RBC 2.89 L Hgb 8.7 L D Hct 28.1 L D MCV MCHC RDW 15.9 H Seg Neuts % (Manual) Lymphocytes % (Manual) Nucleated RBC % Seg Neutrophils # Man Lymphocytes # (Manual) PT APTT ABG pH ABG pO2 ABG HCO3 ABG O2 Saturation ABG Base Excess ABG Hemoglobin Oxyhemoglobin Sodium Potassium Chloride Carbon Dioxide BUN Creatinine Glucose POC Glucose 211 H Lactic Acid Phosphorus Magnesium Troponin T 0.057 H D Total Protein Albumin TSH Crossmatch 04/20/22 04/20/22 04/20/22 02:11 04:45 04:51 WBC 17.8 H RBC 2.91 L Hgb 8.6 L Hct 27.9 L MCV MCHC RDW 16.5 H Seg Neuts % (Manual) 94.0 H Lymphocytes % (Manual) 6.0 L Nucleated RBC % 1.0 H Seg Neutrophils # Man 16.7 H Lymphocytes # (Manual) 1.1 L PT APTT ABG pH 7.499 H ABG pO2 334.3 H ABG HCO3 34.3 H ABG O2 Saturation 99.5 H ABG Base Excess 10.1 H ABG Hemoglobin 9.9 L Oxyhemoglobin Sodium Potassium Chloride Carbon Dioxide BUN Creatinine Glucose POC Glucose Lactic Acid Phosphorus Magnesium Troponin T 0.064 H Total Protein Albumin TSH Crossmatch 04/20/22 04/20/22 04/20/22 04:51 05:34 11:36 WBC RBC Hgb Hct MCV MCHC RDW Seg Neuts % (Manual) Lymphocytes % (Manual) Nucleated RBC % Seg Neutrophils # Man Lymphocytes # (Manual) PT APTT ABG pH ABG pO2 ABG HCO3 ABG O2 Saturation ABG Base Excess ABG Hemoglobin Oxyhemoglobin Sodium 163 H* Potassium 2.6 L* Chloride 117.9 H Carbon Dioxide BUN 25 H Creatinine Glucose 251 H POC Glucose 186 H 141 H Lactic Acid Phosphorus Magnesium Troponin T Total Protein Albumin 3.7 L TSH Crossmatch 04/20/22 04/20/22 04/20/22 13:57 13:57 16:42 WBC RBC Hgb Hct MCV MCHC RDW Seg Neuts % (Manual) Lymphocytes % (Manual) Nucleated RBC % Seg Neutrophils # Man Lymphocytes # (Manual) PT APTT ABG pH ABG pO2 ABG HCO3 ABG O2 Saturation ABG Base Excess ABG Hemoglobin Oxyhemoglobin Sodium 164 H* Potassium Chloride 117.1 H Carbon Dioxide BUN 23 H Creatinine 0.5 L Glucose 177 H POC Glucose 204 H Lactic Acid 2.50 H* Phosphorus 2.40 L Magnesium Troponin T Total Protein Albumin TSH Crossmatch 04/21/22 04/21/22 04/21/22 00:15 04:30 04:30 WBC 14.9 H RBC 2.56 L Hgb 7.6 L Hct 24.2 L MCV MCHC RDW 16.5 H Seg Neuts % (Manual) Lymphocytes % (Manual) Nucleated RBC % Seg Neutrophils # Man Lymphocytes # (Manual) PT APTT ABG pH ABG pO2 ABG HCO3 ABG O2 Saturation ABG Base Excess ABG Hemoglobin Oxyhemoglobin Sodium 149 H D Potassium 2.3 L* D Chloride Carbon Dioxide BUN 20 H Creatinine Glucose 236 H POC Glucose 250 H Lactic Acid Phosphorus Magnesium Troponin T Total Protein Albumin TSH Crossmatch 04/21/22 04/21/22 04/21/22 04:30 04:44 05:19 WBC RBC Hgb Hct MCV MCHC RDW Seg Neuts % (Manual) Lymphocytes % (Manual) Nucleated RBC % Seg Neutrophils # Man Lymphocytes # (Manual) PT APTT ABG pH 7.473 H ABG pO2 119.6 H ABG HCO3 29.8 H ABG O2 Saturation ABG Base Excess 5.7 H ABG Hemoglobin 7.5 L Oxyhemoglobin Sodium Potassium Chloride Carbon Dioxide BUN Creatinine Glucose POC Glucose 235 H Lactic Acid 2.90 H* Phosphorus Magnesium Troponin T Total Protein Albumin TSH Crossmatch 04/21/22 04/21/22 04/21/22 11:50 14:39 17:34 WBC RBC Hgb Hct MCV MCHC RDW Seg Neuts % (Manual) Lymphocytes % (Manual) Nucleated RBC % Seg Neutrophils # Man Lymphocytes # (Manual) PT APTT ABG pH ABG pO2 ABG HCO3 ABG O2 Saturation ABG Base Excess ABG Hemoglobin Oxyhemoglobin Sodium 148 H Potassium 3.1 L D Chloride Carbon Dioxide BUN 18 H Creatinine 0.5 L Glucose 153 H POC Glucose 169 H 197 H Lactic Acid Phosphorus Magnesium Troponin T Total Protein Albumin TSH Crossmatch 04/21/22 04/22/22 04/22/22 21:42 04:32 04:32 WBC 13.7 H RBC 2.60 L Hgb 7.7 L Hct 24.5 L MCV MCHC RDW 18.0 H Seg Neuts % (Manual) Lymphocytes % (Manual) Nucleated RBC % Seg Neutrophils # Man Lymphocytes # (Manual) PT APTT ABG pH ABG pO2 ABG HCO3 ABG O2 Saturation ABG Base Excess ABG Hemoglobin Oxyhemoglobin Sodium Potassium 2.7 L* Chloride Carbon Dioxide BUN Creatinine 0.4 L Glucose 168 H POC Glucose 190 H Lactic Acid Phosphorus Magnesium Troponin T Total Protein Albumin TSH Crossmatch 04/22/22 04/22/22 04/22/22 05:53 11:50 16:19 WBC RBC Hgb Hct MCV MCHC RDW Seg Neuts % (Manual) Lymphocytes % (Manual) Nucleated RBC % Seg Neutrophils # Man Lymphocytes # (Manual) PT APTT ABG pH ABG pO2 ABG HCO3 ABG O2 Saturation ABG Base Excess ABG Hemoglobin Oxyhemoglobin Sodium 148 H Potassium 3.4 L D Chloride Carbon Dioxide 31 H BUN Creatinine 0.4 L Glucose 143 H POC Glucose 163 H 178 H Lactic Acid Phosphorus Magnesium Troponin T Total Protein Albumin TSH Crossmatch 04/22/22 04/23/22 04/23/22 22:06 05:48 05:48 WBC RBC 2.82 L Hgb 8.2 L Hct 26.5 L MCV MCHC RDW 17.1 H Seg Neuts % (Manual) Lymphocytes % (Manual) Nucleated RBC % Seg Neutrophils # Man Lymphocytes # (Manual) PT APTT ABG pH ABG pO2 ABG HCO3 ABG O2 Saturation ABG Base Excess ABG Hemoglobin Oxyhemoglobin Sodium 147 H Potassium 3.0 L Chloride Carbon Dioxide 34 H BUN Creatinine 0.5 L Glucose 177 H POC Glucose 158 H Lactic Acid Phosphorus Magnesium Troponin T Total Protein Albumin TSH Crossmatch Chest x-ray: report reviewed, image reviewed Additional Studies: CHEST 1 VIEW 04/21/22 INDICATION / CLINICAL INFORMATION: follow up respiratory failure. COMPARISON: Chest x-ray 04/20/2022 FINDINGS: SUPPORT DEVICES: Endotracheal tube terminates above the sakina in satisfactory position. HEART / MEDIASTINUM: Heart size is within normal limits. Mediastinal contour demonstrates no significant abnormality. LUNGS / PLEURA: Bilateral diffuse coarsened interstitial prominence is without significant interval change. Somewhat more focal opacities in the left cardiophrenic angle appears stable. BONES: No significant osseous abnormality. ADDITIONAL FINDINGS: Percutaneous gastrostomy tube left upper quadrant. IMPRESSION: 1. Stable chest persistent diffuse interstitial coarsening with more focal opacities in the left lung base that may reflect infection versus atelectasis. Allied health notes reviewed: nursing
--- NOTE | 2022-04-23 09:20 | Discharge Summary ---
Providers - Providers Date of Admission: 04/19/22 08:20 Attending physician: RO WATTS MD 04/19/22 05:15 Consult to Physician [CONS] Stat Comment: Consulting Provider: HILLARY MARTINEZ Physician Instructions: Reason For Exam: Sepsis and respiratory failure 04/19/22 07:39 Consult to Physician [CONS] Routine Comment: Consulting Provider: KAYLIN BARRETT Physician Instructions: ARNOLD Reason For Exam: GIB 04/19/22 08:10 Consult to Physician [CONS] Routine Comment: Consulting Provider: IRVIN GONZALEZ Physician Instructions: Reason For Exam: SEPSIS 04/19/22 08:20 Consult to Dietitian/Nutrition [CONS] Routine Physician Instructions: Reason For Exam: Reason for Consult: Write/Manage Tube Feeding 04/19/22 08:22 Consult to Case Management [CONS] Routine Services Needed at Discharge: Field Agronomist Notified:: NO 04/19/22 15:54 Consult to Physician [CONS] Routine Comment: Consulting Provider: GLORIA BENITEZ Physician Instructions: Reason For Exam: elevated troponin 04/20/22 11:09 Consult to Physician [CONS] Routine Comment: Consulting Provider: OLLIE SIMMONS Physician Instructions: Reason For Exam: Severe Hypernatremia, Hypokalemia 04/20/22 17:58 Consult to Wound/ET Nurse [CONS] Routine Reason For Exam: wound eval Primary care physician: MELISSA UREÑA Hospitalization Reason for admission: respiratory failure Condition: Stable Hospital course: This is 87-year-old female from SNF facility with known past medical history of HTN, CVA, DM, GERD, dementia, dysphagia s/p PEG-Tube placement, and renal disease admitted for severe anemia with possible GI bleed, sepsis, and acute hypoxic respiratory failure requiring ventilatory support. Hospital Course to Date: 04/20: Remains on the vent, tolerating PSV trial this am, plan to wean for possible extubation per CCM. Patient remains on octreotide and protonix gtts. s/p 2units of PRBCs, H&H stable, no s/s of any active bleeding. Tolerating TF. GI recommendations noted, no plan for any intervention at this time. Will D/C octreotide gtt and switched PPI to PO BID. Still with severe hypernatremia despite continuous IVF hydration, now with hypokelemia. FWF added and K repleted, will also consult nephrology for further recs. Continue to monitor and replace electrolytes as needed. SSI adjusted and lantus added Qhs for hyperglycemia. 04/21: Tolerating PSV trial this am, plan for possible extubation today per CCM. Hypernatremia improved, still hypokalemic D5W gtt D/cristino and FWF adjusted. Nephrology is following. Lantus adjusted due to hyperglycemia 04/22: Patient remains very lethargic extubated yesterday maintaining her sats. Continues have persistent hypokalemia requiring replacement therapy. I have reconciled her home medication which is going via her PEG tube. We will contact family today to discuss goals of care. Patient will be transferred to the medical floor for continued management. We will recheck electrolytes in a.m. Luekocytosis is improving. I did discuss with the son and updated the overall clinical condition. Aspiration precautions. 04/23: Patient seen and examined, clinically stable, discussed with arrow head team familiar with the patient she is nonverbal and appears to be at her baseline today. Leukocytosis has improved. I will replace potassium. Patient is only on 2 L of oxygen satting 100% she has been off and tired biotics at this time. Cultures remain negative. GI did not feel that she was a candidate for colonoscopy at this time she does have a positive fecal occult stool but no active bleeding was noted. During this hospitalization she received 2 unit packed red blood cell she had persistent hypokalemia which is continually being replaced and I will recommend rechecking in a few days. I did discuss with the son to consider hospice considering overall comorbidities. The son did elect earlier in this admission to make the patient a DNR. Assessment and Plan #Acute Hypoxic Respiratory Failure #Possible Aspiration - Presented from SNF with high fever, tachycardia, and hypoxic - Intubated in the Ed for airway protection on 04/19 - Purulent vs TF contents was suctioned during intubation - Initial CXR revealed worsening opacities at the mid-lower left lung reflecting atelectasis - Vent setting:CPAP- 35%,8 PS-8 - AM ABG noted - CCM consulted, appreciate recommendations - Continue IV Abx per ID and vent adjustment per CCM - VAP bundle addressed - Aspiration precaution HOB above 30 - Daily SBT trials as tolerated. Plan to wean for possible extubation - Daily ABG and CXR - Continue SPO2 monitoring for SPO2 goal above 92% #Severe Anemia with Possible Gastrointestinal Bleed - Presented with Hgb of 4.1, occult stool is positive. No s/s of any active bleeding - s/p octreotide and protonix gtt - S/p 2units of PRBCs - GI consulted, recommendations appreciated - No report of any active bleeding since admit, H&H stable - No plan for any interventions per GI - On PO protonix BID - Close monitoring for any s/s of any active bleeding - Continue to trend CBC - Transfuse for hgb less than 7 #Severe Hypernatremia #Hypokalemia #Sacral pressure ulcer present on admission #Hypomagnesemia - Probably secondary to hypovelemia/dehydration - Patient remains severely hypernatremic this am, now with hypokalemia - Remains on continuous IVF - FWF added Q4hrs, K repeleted - Nephrology consulted, appreciate recommendations - Strict intake and output - Monitor and replace electrolytes as needed #Sepsis (POA) #Possible Aspiration Pneumonia #Leukocytosis #Lactic Acidosis - Presented with with high fever, tachycardia, and hypoxic - Purulent vs TF contents was suctioned during intubation - Initial CXR revealed worsening opacities at the mid-lower left lung reflecting atelectasis - UA is unremarkable, Blood cultures with NGTD, sputum culture pending - ID consulted, appreciate recommendations - Continue current IV abx- Cefepine, Vanco - F/U on cultures - Daily CBC monitor #Acute Metabolic Encephalopathy #History of Seizure Disorder #H/o CVA and Dementia #Long Term Resident - Unresponsive on presentation, most likely secondary to above - bedbound and confused at baseline - Currently intubated, not on any sedations. open eyes spontaneously, does not track, does not follow any commands - Treat underlying factors as above - Resume home keppra - Seizure precaution - Aspiration precaution - Avoid benzodiazepine to reduce the possibility of delirium - PRN Analgesia for CPOT greater than 3 - Maintenance of sleep-wake cycle #Non-ST elevated AL (NSTEMI) #Hypertension - Presented with elevated Troponin, probable demand ischemia - Cardiology on consult, appreciated recommendations - Remains in SR on the monitor, no significant ST changes appreciated - SBP in the 150s-160s - Will resume home antihypertensive - Continue blood pressure monitor per protocol - Maintain SBP less than 160 #Type 2 Diabetes Mellitus with Hyperglycemia - BG check and SSI Q6hrs - Lantus added Qhs - Avoid hypoglycemia #GI/DVT Prophylaxis - PPI- Protonix - SCDs to bilateral lower extremities while in bed #Advance Care Planning - Disease education data, care plan, diagnoses, and prognosis were discussed with patient's son via phone. Patient is AND/DNR status. Patient's son acknowledged understanding and agreed with current care plan. Disposition: HOME / SELF CARE / HOMELESS Final Discharge Diagnosis (Prints w/discharge instructions): #Acute Hypoxic Respiratory Failure. #Possible Aspiration. #Severe Anemia with Possible Gastrointestinal Bleed. #Severe Hypernatremia. #Hypokalemia. #Hypomagnesemia. #Sepsis (POA). #Possible Aspiration Pneumonia. #Leukocytosis. #Lactic Acidosis. #Acute Metabolic Encephalopathy. #History of Seizure Disorder. #H/o CVA and Dementia. #Long Term Resident. #Non-ST elevated AL (NSTEMI). #Hypertension. #Type 2 Diabetes Mellitus with Hyperglycemia. #Sacral pressure ulcer present on admission Time spent for discharge: 35 mins Core Measure Documentation - Palliative Care Palliative Care/ Comfort Measures: Not Applicable - Core Measures Any of the following diagnoses?: none Exam - Physical Exam Narrative exam: General appearance: Present: cachectic, non verbal, at baseline - EENT Eyes: Present: PERRL - Respiratory Respiratory effort: normal Respiratory: bilateral: rhonchi - Cardiovascular Rhythm: regular Heart Sounds: Present: S1 & S2 - Extremities Extremities: no ischemia, pulses intact, pulses symmetrical, abnormal (LUE and BLE contractions. Sacral wounds noted(POA)) Peripheral Pulses: within normal limits - Abdominal General gastrointestinal: soft, non-distended, normal bowel sounds - Integumentary Integumentary: Present: warm, dry - Psychiatric Psychiatric: other lethargic - Neurologic Neurologic: other unresponsive. Open eyes spontaneously, does not tract, does not follow any commands) - Allied Health Allied health notes reviewed: nursing, case management - Constitutional Vitals: Temp Pulse Resp BP Pulse Ox 98.4 F 99 H 22 145/56 100 04/23/22 06:16 04/23/22 08:50 04/23/22 08:50 04/23/22 06:16 04/23/22 08:49 Plan Activity: advance as tolerated, fall precautions Diet: other (Continue with tube) Special Instructions: record daily weights, record daily BP diary Care Plan Goals: Repeat BMP: In 2 to 3 days Follow up with: KAYLIN BARRETT MD [Staff Physician] - 7 Days OLLIE SIMMONS MD [Staff Physician] - 7 Days DEIDRA KELSEY MD [Staff Physician] - 7 Days Prescriptions: Potassium Chloride 40 meq FEEDTUBE DAILY #7 packet
[2022-04-23] MEDS ORDERED: NON-FORMULARY EACH (Lovastatin [Altoprev] 40 MG Tab.Er.24h) PO SCH (10:00)
[2022-04-23] MEDS ORDERED: FERROUS SULFATE 325 MG TAB PO SCH (10:00)
[2022-04-23] MEDS ORDERED: ASPIRIN EC 81 MG TAB PO SCH (10:00)
[2022-04-23] MEDS ORDERED: CHOLECALCIFEROL (VIT D3) 1000 UNIT (25 mcg) TAB PO SCH (10:00)
[2022-04-23] MEDS ORDERED: allopurinoL 300 MG TAB PO SCH (10:00)
[2022-04-23] MEDS: POTASSIUM CHLORIDE 20 MEQ PACKET FEEDTUBE SCH ×2 (10:28→14:28)
--- NOTE | 2022-04-23 10:53 | XRay Report ---
CHEST 1 VIEW 04/23/2022 8:20 AM INDICATION / CLINICAL INFORMATION: follow up respiratory failure. COMPARISON: Multiple prior studies most recent 2 days ago. FINDINGS: SUPPORT DEVICES: Apparent interval ET tube removal. HEART / MEDIASTINUM: Stable. LUNGS / PLEURA: Slightly lower lung volumes with increasing interstitial and alveolar opacities ronny rning for developing mild edema and/or pneumonitis superimposed upon basilar atelectasis also slightl y increasing. No pneumothorax. ADDITIONAL FINDINGS: No significant additional findings. IMPRESSION: 1. Slight worsening radiographic cardiopulmonary appearances, potentially accentuated by lower lung v olumes. 2. Interval extubation. Signer Name: Kathryn Funez MD Signed: 04/23/2022 10:48 AM Workstation Name: [id number]
--- NOTE | 2022-04-23 10:59 | Progress Note ---
Assessment and Plan 1. Hypernatremia: Hyponatremia secondary to dehydration. Received IV D5W. On tube water flushes. Sodium level is better. Follow Sodium level. 2. FEN: Hypokalemia, replete K, monitor. Replete lytes as needed. Monitor lytes and volume status. 3. Acute Resp failure: S/p extubated. 4. SIRS vs Sepsis: On abx. Followed by ID. 5. Severe anemia: S/p pRBC. GI evaluated, signed off. 6. Acute metabolic encephalopathy, POA: H/o Dementia. Monitor. Subjective: Patient was seen and examined at the bedside. Examination: General appearance: well-developed, appears stated age, no distress HEENT: atraumatic, no icterus, resisting exam Neck: trachea midline Respiratory: ctab Heart: S1S2, regular, no murmur Abdomen: soft, bowel sounds heard, NT, PEG tube Integumentary: no obvious rash Neurologic: stuporous Ext: no edema Subjective Date of service: 04/23/22 Principal diagnosis: anemia Objective - Vital Signs Vital signs: Vital Signs - 12hr 04/22/22 04/23/22 04/23/22 23:44 02:19 06:16 Temperature 99.2 F 98.4 F Pulse Rate 86 98 H Pulse Rate [ 93 H Throughout] Respiratory 19 20 Rate Respiratory 16 Rate [ Throughout] Blood Pressure 102/51 145/56 O2 Sat by Pulse 98 100 Oximetry 04/23/22 04/23/22 08:49 08:50 Temperature Pulse Rate Pulse Rate [ 99 H Throughout] Respiratory Rate Respiratory 22 Rate [ Throughout] Blood Pressure O2 Sat by Pulse 100 Oximetry - Lab 04/23/22 05:48 04/23/22 05:48 Most recent lab results ABG pH 7.473 pH Units (7.350-7.450) H 04/21/22 04:44 ABG pCO2 41.6 mm Hg 04/21/22 04:44 ABG pO2 119.6 mm Hg (80.0-90.0) H 04/21/22 04:44 ABG HCO3 29.8 mmol/L (20.0-26.0) H 04/21/22 04:44 ABG O2 Saturation 98.4 % (95.0-99.0) 04/21/22 04:44 Calcium 8.9 mg/dL (8.4-10.2) 04/23/22 05:48 Phosphorus 3.30 mg/dL (2.5-4.5) 04/23/22 05:48 Magnesium 2.10 mg/dL (1.7-2.3) 04/23/22 05:48 Medications & Allergies - Medications Allergies/Adverse Reactions: Allergies No Known Allergies Allergy (Verified 03/15/21 10:30) Home Medications: Home Medications Medication Instructions Recorded Confirmed Last Taken Type Ferrous Sulfate [Iron 325 MG] 325 mg PO DAILY 03/17/21 04/19/22 Unknown History Lovastatin [Altoprev] 40 mg PO DAILY 03/17/21 04/19/22 Unknown History allopurinoL [Zyloprim] 300 mg PO QDAY 03/17/21 04/19/22 Unknown History amLODIPine 10 mg PO DAILY 03/17/21 04/19/22 Unknown History Aspirin [Adult Aspirin] 81 mg PO DAILY #30 tablet. 03/22/21 04/19/22 Unknown Rx Linagliptin [Tradjenta] 5 mg PO QAMDIAB #30 tablet 03/22/21 04/19/22 Unknown Rx Insulin Glargine [Lantus VIAL] 10 units SUB-Q QHS #30 ml 11/04/21 04/19/22 Unknown Rx Lacosamide [Vimpat] 100 mg PO Q12HR #60 tablet 11/04/21 04/19/22 Unknown Rx Sennosides/Docusate [Senokot S] 2 tab FEEDTUBE BID #30 tablet 11/04/21 04/19/22 Unknown Rx levETIRAcetam [Keppra] 1,000 mg FEEDTUBE BID #600 ml 11/04/21 04/19/22 Unknown Rx Cholecalciferol Vit D3 [Vitamin D3 1,000 unit PO QDAY tablet 01/11/22 04/19/22 Unknown Rx 1,000 UNIT TAB] Metoprolol [Lopressor TAB] 25 mg PO Q8HR 30 Days #90 tablet 01/11/22 04/19/22 Unknown Rx Acetaminophen [Acetaminophen TAB] 650 mg PO Q4H PRN tablet 01/19/22 04/19/22 Unknown Rx Famotidine [Zantac-360 20 mg PO QDAY 04/19/22 04/19/22 Unknown History (Famotidine)] Insulin Lispro [Admelog] See Protocol SQ ACHS 04/19/22 04/19/22 Unknown History Magnesium Hydroxide [Milk of 400 mg PO QDAY PRN 04/19/22 04/19/22 Unknown History Magnesia] traMADoL [Ultram 50 MG tab] 50 mg PO Q6HR PRN 04/19/22 04/19/22 Unknown History Potassium Chloride 40 meq FEEDTUBE DAILY #7 packet 04/23/22 Unknown Rx Active Medications: Generic Name Dose Route Start Last Admin Trade Name Freq PRN Reason Stop Dose Admin Acetaminophen 650 mg 04/19/22 09:00 Acetaminophen 650 Mg Rect Supp MD Q6H PRN Pain MILD(1-3)/Fever >100.5/FERRARI Albuterol 2.5 mg 04/19/22 09:00 Albuterol 2.5 Mg/3 Ml Nebu IH Q3HRT PRN Shortness Of Breath Albuterol/Ipratropium 1 ampul 04/19/22 09:00 04/23/22 08:49 Ipratropium/Albuterol Sulfate 3 Ml Ampul.Neb IH 1 ampul Q6HRT CONNIE Administration Allopurinol 300 mg 04/23/22 10:00 Allopurinol 300 Mg Tab PO QDAY CONNIE Amlodipine Besylate 10 mg 04/21/22 10:00 04/22/22 09:42 Amlodipine 10 Mg Tab PO 10 mg DAILY CONNIE Administration Lipase/Protease/Amylase 1 each 04/19/22 16:00 Lipase 10,500/Protease 25,000/Amylase 43,750 (Units) Dr Collier FEEDTUBE PRN PRN For Clogged Feeding Tube Aspirin 81 mg 04/23/22 10:00 Aspirin Ec 81 Mg Tab PO DAILY [facility] Atorvastatin Calcium 10 mg 04/22/22 22:00 04/22/22 21:46 Atorvastatin 10 Mg Tab PO 10 mg QHS CONNIE Administration Cholecalciferol 1,000 unit 04/23/22 10:00 Cholecalciferol (Vit D3) 1000 Unit (25 Mcg) Tab PO QDAY [facility] Dextrose 50 ml 04/19/22 08:30 Dextrose 50% In Water (25gm) 50 Ml Syringe IV Q30MIN PRN Hypoglycemia Protocol Ferrous Sulfate 325 mg 04/23/22 10:00 Ferrous Sulfate 325 Mg Tab PO DAILY [facility] Hydrophilic Ointment 1 applic 04/19/22 05:15 Lip Therapy Vaseline TP Q2HR PRN Dry Lips Cefepime HCl 2 gm in 100 mls @ 200 mls/hr 04/19/22 18:00 04/23/22 05:39 Cefepime/Ns 2 Gm/100 Ml IV 04/24/22 06:29 200 mls/hr Q12H CONNIE Administration Insulin Glargine 15 units 04/21/22 22:00 04/22/22 22:59 Insulin Glargine 100 Units/Ml SUB-Q 15 units QHS CONNIE Administration Insulin Human Lispro 0 unit 04/19/22 12:00 04/23/22 06:40 Insulin Lispro 100 Unit/Ml SUB-Q 3 unit Q6HR CONNIE Administration Protocol Lacosamide 100 mg 04/22/22 22:00 04/22/22 21:39 Lacosamide 100 Mg Tab PO 100 mg Q12HR CONNIE Administration Lansoprazole 30 mg 04/21/22 10:00 04/22/22 21:39 Lansoprazole 30 Mg Solutab FEEDTUBE 30 mg BID CONNIE Administration Levetiracetam 1,000 mg 04/20/22 22:00 04/22/22 21:40 Levetiracetam 500 Mg/5 Ml Oral Liqd FEEDTUBE 1,000 mg BID CONNIE Administration Metoprolol Tartrate 12.5 mg 04/20/22 22:00 04/22/22 21:39 Metoprolol Tartrate 25 Mg Tab PO 12.5 mg BID CONNIE Administration Multi-Ingred Cream/Lotion/Oil/Oint 1 applic 04/19/22 05:15 Mineral Oil/Petrolatum, White Ophth Oint 3.5 Gm OU Q4HR PRN Dry Eye(s) Naloxone HCl 0.1 mg 04/19/22 09:00 Naloxone 0.4 Mg/1 Ml Inj IV Q2MIN PRN Res Rate </= 8 or 02 SAT < 92% Nystatin 500,000 unit 04/19/22 20:00 04/22/22 21:40 Nystatin 500,000 Unit/5 Ml Oral Liqd PO 04/26/22 14:01 500,000 unit TID CONNIE Administration Potassium Chloride 40 meq 04/23/22 09:00 Potassium Chloride 20 Meq Packet FEEDTUBE 04/23/22 11:01 Q2H CONNIE Senna/Docusate Sodium 1 tab 04/19/22 10:00 04/22/22 21:39 Sennosides/Docusate Sodium 8.6/50 Mg Tab FEEDTUBE 1 tab BID CONNIE Administration Simple Syrup 15 ml 04/19/22 16:00 Simple Syrup 15 Ml FEEDTUBE PRN PRN Hypoglycemia Simple Syrup 30 ml 04/19/22 16:00 Simple Syrup 15 Ml FEEDTUBE PRN PRN Hypoglycemia Sodium Bicarbonate 325 mg 04/19/22 16:00 Sodium Bicarbonate 325 Mg Tab FEEDTUBE PRN PRN For Clogged Feeding Tube Sodium Chloride 10 ml 04/19/22 10:00 04/22/22 23:00 Sodium Chloride 0.9% 10 Ml Flush Syringe IV 10 ml BID CONNIE Administration Sodium Chloride 10 ml 04/19/22 09:00 Sodium Chloride 0.9% 10 Ml Flush Syringe IV PRN PRN LINE FLUSH
[2022-04-23 13:56] VITALS: BP 151/75
== END 2022-04-23 16:30 | DRG 871 ==
LOC: ED 05:05 → CC1 08:20 → 3A 04-22 14:45
PROVIDERS: ADMIT Internal Medicine; ATTEND Internal Medicine
PROC: 5A1945Z Respiratory Ventilation, 24-96 Consecutive Hours (ICD-10-PCS; principal; 2022-04-19)
PROC: 0BH17EZ Insertion of Endotracheal Airway into Trachea, Via Natural or Artificial Opening (ICD-10-PCS; 2022-04-19)
PROC: 30233N1 Transfusion of Nonautologous Red Blood Cells into Peripheral Vein, Percutaneous Approach (ICD-10-PCS; 2022-04-19)
PROC: 4A033R1 Measurement of Arterial Saturation, Peripheral, Percutaneous Approach (ICD-10-PCS; 2022-04-19)
DX: A41.9 Sepsis, unspecified organism (principal); G93.41 Metabolic encephalopathy; I21.4 Non-ST elevation (NSTEMI) myocardial infarction; J96.01 Acute respiratory failure with hypoxia; J69.0 Pneumonitis due to inhalation of food and vomit; E87.0 Hyperosmolality and hypernatremia; K92.2 Gastrointestinal hemorrhage, unspecified; R65.20 Severe sepsis without septic shock; Z20.822 Contact with and (suspected) exposure to COVID-19; Z66 Do not resuscitate; D50.0 Iron deficiency anemia secondary to blood loss (chronic); F03.90 Unspecified dementia, unspecified severity, without behavioral disturbance, psychotic disturbance, mood disturbance, and anxiety; I10 Essential (primary) hypertension; M10.9 Gout, unspecified; K21.9 Gastro-esophageal reflux disease without esophagitis; E87.6 Hypokalemia; E83.41 Hypermagnesemia; I25.10 Atherosclerotic heart disease of native coronary artery without angina pectoris; E78.5 Hyperlipidemia, unspecified; G40.909 Epilepsy, unspecified, not intractable, without status epilepticus; E11.65 Type 2 diabetes mellitus with hyperglycemia; E86.0 Dehydration; L89.159 Pressure ulcer of sacral region, unspecified stage; Z79.4 Long term (current) use of insulin; Z86.73 Personal history of transient ischemic attack (TIA), and cerebral infarction without residual deficits; Z79.82 Long term (current) use of aspirin
CPT/HCPCS: 36415; 36600; 71045; 80048; 80053; 80061; 81001; 82140; 82270; 82550; 82607; 82728; 82747; 82803; 82962; 83550; 83735; 84100; 84439; 84443; 84484; 85007; 85025; 85027; 85610; 85730; 86850; 86900; 86901; 86920; 87040; 87070; 87076; 87086; 87186; 87205; 93005; 94002; 94003; 94640; 94760; 96365; 96367; 96375; 99291; G0378; J2501; J3490; Q9967; C9113; J0692; J1100; J1815; J1953; J2270; J2354; J3370; J3480; J7030; J7040; J7050; J7070; P9016; U0003